=== PATIENT | male | born 1985 | race Two or more races ===

== ENCOUNTER 2022-11-08 15:44 | Emergency (ER) | payer MEDICAID, SELFPAY ==
--- NOTE | ~2022-11-08 | US_ITS ---
EXAMINATION: US ABDOMEN LIMITED CLINICAL INFORMATION: Hepatobiliary. COMPARISON: None available. TECHNIQUE: Real-time imaging of the right upper quadrant abdominal viscera. FINDINGS: PANCREAS: Largely obscured by bowel gas, limiting evaluation. LIVER: Liver is enlarged measuring 17.3 cm in span. The liver contour is normal. Parenchymal echogenicity is normal. No definite focal lesion is seen, but evaluation is limited due to poor sound beam penetration through the coarse echogenic liver parenchyma. There is no intrahepatic biliary duct dilatation seen. GALLBLADDER: Negative sonographic Fernandez sign. Cholelithiasis is present. Gallbladder is contracted with no significant distention to suggest cholecystitis. No pericholecystic fluid. COMMON BILE DUCT: Not identified sonographically. RIGHT KIDNEY: Normal. No hydronephrosis. No renal calculi or focal parenchymal lesions. The kidney measures 9.9 cm in maximum dimension. FREE FLUID: None. US/US abdomen limited IMPRESSION: Cholelithiasis without evidence of acute cholecystitis. Liver is mildly enlarged. Increased hepatic echogenicity which can be seen in the setting of hepatic steatosis or underlying liver disease. Pancreas was largely obscured by bowel gas limiting evaluation and the common bile duct was not identified sonographically.
[2022-11-08 15:56] VITALS: BP 138/96; PULSE 113; O2SAT 95
[2022-11-08 15:59] VITALS: BP 148/81; PULSE 118; RESP 16; TEMP 36.6; O2SAT 97; BMI 28.3
--- NOTE | 2022-11-08 16:23 | ED_ITS ---
HPI - Seizure General Chief Complaint: Seizure Stated Complaint: SZ FROM SNF PER EMS Time Seen by Provider: 11/08/22 16:11 Source: patient and RN notes reviewed Mode of arrival: EMS Limitations: no limitations History of Present Illness HPI Narrative: Patient with history of TBI, PTSD, generalized anxiety, pseudoseizures and seizure disorder on Depakote been having frequent seizures almost every 2 weeks today had a seizure at 14:20 lasted for about 2-3 minutes received Ativan 1 mg was incontinent and slightly bit his tongue no other significant injury Related Data Allergies Allergy/AdvReac Type Severity Reaction Status Date / Time No Known Allergies Allergy Verified 11/08/22 16:24 Review of Systems Review of Systems: Yes all other systems are reviewed and are negative [facility] Social History Social History Advance Directives: No Advance Directives Information Provided: No Physical Exam Vital Signs: Vital Signs: Last Vital Signs Temp 97.9 F 11/08/22 15:59 Pulse 118 H 11/08/22 15:59 Resp 16 11/08/22 15:59 BP 148/81 H 11/08/22 15:59 Pulse Ox 97 11/08/22 15:59 O2 Del Method Room Air 11/08/22 15:59 BMI result Body Mass Index 28.3 Appearance: Alert. Oriented X3. No acute distress. Eyes: PERRLA, No Nystagmus ENT: Pharynx normal. Oral Mucosa moist slightly abraded tongue Neck: Normal inspection. Neck supple. CVS: Normal heart rate and rhythm. Pulses normal. Respiratory: No respiratory distress. Equal air entry bilateral, no wheezing/ rales/rhonchi Abdomen: Soft and nontender. Bowel sounds are present, no mass palpable, no CVA tenderness Skin: Skin warm and dry. Normal skin color. Normal skin turgor. Extremities: No lower extremity edema. No calf tenderness Neuro: Oriented X 3. No motor deficit. No sensory deficit.No cerebellar signs , cranial nerves II-XII intact Medications Administered Discontinued Medications Generic Name Dose Route Start Last Admin Trade Name Freq PRN Reason Stop Dose Admin Lorazepam 2 mg 11/08/22 16:25 11/08/22 17:13 Lorazepam 1 Mg Tablet PO 11/08/22 16:26 2 mg ONCE ONE Administration Medical Decision Making Medical Decision Making MDM Narrative: Patient is stable labs normal Depakote level likely pseudoseizures with anxiety patient's symptoms improved after Ativan ambulatory in the ER had p.o. fluid to discharge patient back to [facility] patient ultrasound was also negative for any acute hepatobiliary lesion as requested by his PCP Lab Data [facility] Lab Attestation statement: I reviewed the patient's lab results. 11/08/22 19:45 11/08/22 19:45 Labs: Lab Results 11/08/22 11/08/22 11/08/22 Range/Units 19:45 19:45 19:45 WBC 6.4 (4.8-10.8) X10*3/uL RBC 4.89 (4.60-5.80) X10*6/uL Hgb 14.9 (14.0-18.0) g/dl Hct 44.6 (42.0-52.0) % MCV 91.2 (80.0-98.0) fL MCH 30.5 (27.0-33.0) pg MCHC 33.4 (31.0-36.0) g/dl RDW 12.3 (11.0-16.0) % Plt Count 170 (160-400) X10*3/uL MPV 9.2 L (9.4-12.4) fL Immature Gran % (Auto) 0.3 (0.0-0.4) % Neut % (Auto) 48.5 (45-73) % Lymph % (Auto) 43.5 H (20-40) % Schleicher % (Auto) 7.1 (2-11) % Eos % (Auto) 0.3 (0-4) % Baso % (Auto) 0.3 (0-2) % Lymph # (Auto) 2.8 (1.2-4.9) X10*3/uL Schleicher # (Auto) 0.5 (0.1-1.2) X10*3/uL Eos # (Auto) 0.0 (0.0-0.4) X10*3/uL Baso # (Auto) 0.0 (0.0-0.2) X10*3/uL Abs Immat Gran (auto) 0.02 (0.00-0.03) X10*3/uL Absolute Neuts (auto) 3.1 (2.0-8.3) x10*3/uL Absolute Nucleated RBC 0.000 (0.0-0.012) X10*3/uL Nucleated RBC % (auto) 0.0 (0.0-0.2) /100WBC Sodium 141 (135-145) mmol/L Potassium 4.1 (3.3-5.1) mmol/L Chloride 104 (96-108) mmol/L Carbon Dioxide 27 (22-29) mmol/L Anion Gap 14 (12-20) BUN 10 (9-16) mg/dL Creatinine 0.80 (0.5-1.4) mg/dL Estim Creat Clear Calc 132.1 Estimated GFR > 60 Random Glucose 87 (60-115) mg/dL Calcium 9.8 (8.4-10.2) mg/dL Magnesium 1.7 (1.6-2.6) mg/dL Total Bilirubin 0.4 (0.0-1.0) mg/dL AST 75 H (5-37) U/L ALT 131 H (0-40) U/L Alkaline Phosphatase 75 (39-117) U/L Total Protein 7.1 (6.5-8.0) g/dL Albumin 4.2 (3.5-5.0) g/dL Valproic Acid 72.8 (50.0-100.0) mcg/mL Discharge Plan Discharge Clinical Impression: Generalized seizure Patient Disposition: Home, Self-Care Instructions: Recurrent Seizures in Adults (ED) Additional Instructions: Continue your medications And follow-up with neurology Interventions: ED Discharge Assessment Last Done: 11/08/22 21:25 Discharge Date/Time: 11/08/22 21:26
[2022-11-08] MEDS: LORazepam 1 MG TABLET 2 MG PO (17:13)
[2022-11-08 19:50] LABS: MANUAL DIFF FLAG NO
[2022-11-08 19:52] LABS: Basophils Percent Auto 0.3 % (0-2); Eosinophils Percent Auto 0.3 % (0-4); Hematocrit 44.6 % (42.0-52.0); Hemoglobin 14.9 g/dl (14.0-18.0); Imm Gran Abs Auto 0.02 X10*3/uL (0.00-0.03); Imm Gran Pct Auto 0.3 % (0.0-0.4); Lymphocytes Absolute Auto 2.8 X10*3/uL (1.2-4.9); Lymphocytes Percent Auto 43.5 % (20-40); Mean Corpuscular HGB Conc 33.4 g/dl (31.0-36.0); Mean Corpuscular Hemoglobin 30.5 pg (27.0-33.0); Mean Corpuscular Volume 91.2 fL (80.0-98.0); Mean Platelet Volume 9.2 fL (9.4-12.4); Monocytes Absolute Auto 0.5 X10*3/uL (0.1-1.2); Monocytes Percent Auto 7.1 % (2-11); Neutrophils Absolute Auto 3.1 x10*3/uL (2.0-8.3); Neutrophils Percent Auto 48.5 % (45-73); Platelet Count 170 X10*3/uL (160-400); Red Blood Count 4.89 X10*6/uL (4.60-5.80); Red Cell Distribution Width 12.3 % (11.0-16.0); White Blood Count 6.4 X10*3/uL (4.8-10.8)
[2022-11-08 20:04] LABS: Alanine Aminotransferase 131 U/L (0-40); Albumin Level 4.2 g/dL (3.5-5.0); Alkaline Phosphatase 75 U/L (39-117); Anion Gap 14 (12-20); Aspartate Amino Transferase 75 U/L (5-37); Bilirubin Total 0.4 mg/dL (0.0-1.0); Blood Urea Nitrogen 10 mg/dL (9-16); Calcium 9.8 mg/dL (8.4-10.2); Carbon Dioxide 27 mmol/L (22-29); Chloride 104 mmol/L (96-108); Creatinine Clr Calc Pharmacy 132.1; Estimated Glomerular Filt Rate > 60; Glucose Random 87 mg/dL (60-115); Magnesium 1.7 mg/dL (1.6-2.6); Potassium 4.1 mmol/L (3.3-5.1); Sodium 141 mmol/L (135-145); Total Protein 7.1 g/dL (6.5-8.0)
[2022-11-08 20:05] LABS: Valproate 72.8 mcg/mL (50.0-100.0)
--- NOTE | 2022-11-08 21:07 | PC.NURSE ---
pt ambulatory with steady gait to and from bathroom. speaking clear full sentences, in no apparent distress. pt states he wants to go home. pt has had no seizure like activity since this RN assumed care at 1900. MD discharging pt, waiting for ambulance ride [facility].
== END 2022-11-08 21:26 | disposition home or self-care (01) ==
PROVIDERS: Emergency Provider Internal Medicine; PCP Hospitalist
DX: R56.9 Unspecified convulsions (principal); R10.13 Epigastric pain; F41.9 Anxiety disorder, unspecified; Z79.899 Other long term (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
CPT/HCPCS: 36415; 76705; 80053; 80164; 83735; 85025; 99282; 99284

== ENCOUNTER 2022-11-09 09:39 | Emergency (ER) | payer MEDICAID, SELFPAY ==
--- NOTE | 2022-11-09 09:45 | ED.SEIZURE ---
HPI - Seizure General Chief Complaint: Seizure Stated Complaint: seizures per ems Time Seen by Provider: 11/09/22 09:40 Source: EMS Mode of arrival: EMS Limitations: altered mental status History of Present Illness HPI Narrative: patient with a history of seizure and pseudoseizures with multiple episodes today complaint: seizure Related Data Allergies Allergy/AdvReac Type Severity Reaction Status Date / Time No Known Allergies Allergy Verified 11/08/22 16:24 Review of Systems Neurologic: Denies Sensory deficit (Neuro) [facility] Social History Social History Alcohol intake: never Smoked in Last 30 Days: No Use of substances other than those prescribed or required for medical reasons: No Advance Directives: Yes Advance Directives on File: No Physical Exam Vital Signs: Vital Signs: Last Vital Signs Temp 98.6 F 11/09/22 09:47 Pulse 98 11/09/22 13:49 Resp 13 11/09/22 13:49 BP 131/78 11/09/22 13:49 Pulse Ox 94 11/09/22 13:49 O2 Del Method Room Air 11/09/22 13:49 BMI result Body Mass Index 32.5 Const: Other: chronically ill, old TBI Nutritional Appearance: average body habitus Orientation/consciousness: oriented to person Limitations: altered mental status HEENT: Head: Yes normal to inspection Ears: external ears normal General nose exam: Normal external nose present Mouth: Normal oral and palatal mucosa present and oropharynx normal Throat: Yes posterior oropharynx normal Eyes: General: appearance normal, both eyes and all related structures Neck: Other: supple Neck: Yes normal visual inspection Chest: Chest palpation & inspection: normal inspection of the chest Resp: Auscultation: clear to auscultation bilaterally Cardio: Jugular venous distension: no JVD Rate: regular rate Rhythm: regular rhythm Heart sounds: S1 normal heart sound present and S2 normal heart sound present GI: Inspection: Yes normal to inspection Palpation (GI): Soft to palpation, nontender and No hepatosplenomegaly present Auscultation: normal bowel sounds : General: Yes no CVA tenderness Back/Spine/Pelvis: Back: no CVA tenderness Skin: General skin exam: no rashes or lesions noted Neuro: General: oriented to person Cranial nerves: Yes CN's II-XII intact bilaterally Motor exam (neuro): 5/5 motor strength present throughout Sensory Exam: No Sensory deficit (Neuro) Extrem: General: Yes normal to inspection Psych: Other: flat affect Course Reevaluation(s) Reevaluation #1: Discussed with Dr. Mcmillan the likelihood that this is pseudoseizure will dc back to [facility] Time: 13:59 Medications Administered Discontinued Medications Generic Name Dose Route Start Last Admin Trade Name Ilana PRN Reason Stop Dose Admin Lorazepam 2 mg 11/09/22 09:44 11/09/22 10:42 Lorazepam 2 Mg/Ml Vial IVPUSH 11/09/22 09:45 2 mg ONCE ONE Administration Medical Decision Making Differential Diagnosis Differential Diagnoses: The differential diagnosis associated with the presentation includes (seizures, pseudoseizures, electrolyte abnormalities, depakote toxicity or under treatment) Admission/Observation Consideration of admission/observation: Escalation of care including admission/observation considered (Patient sent in for 20 seizures so considered admitting for status epilepticus) Consult Healthcare Provider Management of the patient was discussed with: Primary Care Provider (discussed care with Dr. Mcmillan) Lab Data MDM Lab Attestation statement: I reviewed the patient's lab results. 11/09/22 10:30 11/09/22 11:37 Labs: Lab Results 11/09/22 11/09/22 11/09/22 Range/Units 10:30 10:37 11:37 WBC 5.6 (4.8-10.8) X10*3/uL RBC 5.11 (4.60-5.80) X10*6/uL Hgb 15.8 (14.0-18.0) g/dl Hct 48.0 (42.0-52.0) % MCV 93.9 (80.0-98.0) fL MCH 30.9 (27.0-33.0) pg MCHC 32.9 (31.0-36.0) g/dl RDW 12.7 (11.0-16.0) % Plt Count TNP MPV Not Reportable Immature Gran % (Auto) 1.2 H (0.0-0.4) % Neut % (Auto) 55.6 (45-73) % Lymph % (Auto) 34.9 (20-40) % Dewitt % (Auto) 7.3 (2-11) % Eos % (Auto) 0.5 (0-4) % Baso % (Auto) 0.5 (0-2) % Lymph # (Auto) 2.0 (1.2-4.9) X10*3/uL Dewitt # (Auto) 0.4 (0.1-1.2) X10*3/uL Eos # (Auto) 0.0 (0.0-0.4) X10*3/uL Baso # (Auto) 0.0 (0.0-0.2) X10*3/uL Abs Immat Gran (auto) 0.07 H (0.00-0.03) X10*3/uL Absolute Neuts (auto) 3.1 (2.0-8.3) x10*3/uL Absolute Nucleated RBC 0.000 (0.0-0.012) X10*3/uL Nucleated RBC % (auto) 0.0 (0.0-0.2) /100WBC Smear Tech's Comments VERIFIED Sodium 144 (135-145) mmol/L Potassium 4.1 (3.3-5.1) mmol/L Chloride 103 (96-108) mmol/L Carbon Dioxide 30 H (22-29) mmol/L Anion Gap 15 (12-20) BUN 12 (9-16) mg/dL Creatinine 0.84 (0.5-1.4) mg/dL Estim Creat Clear Calc 125.5 Estimated GFR > 60 Random Glucose 106 (60-115) mg/dL Calcium 10.0 (8.4-10.2) mg/dL Valproic Acid 66.9 (50.0-100.0) mcg/mL Tests considered The following testing was considered but not selected: considered getting a head CT but the episodes did not appear to be [employer] of origin Chronic Conditions Patient?s care impacted by: Other (tBI and psych issues) Procedures Procedure Narrative Procedure Narrative: IV placement under ultrasound guidance by me Discharge Plan Discharge Clinical Impression: Psychiatric pseudoseizure Patient Disposition: Home, Self-Care Instructions: Conversion Disorder (ED) Referrals: Antonio Mcmillan DO [Primary Care Provider] - 5 days
[2022-11-09 09:47] VITALS: BP 133/84; BP 136/101; PULSE 87; PULSE 96; RESP 15; TEMP 37; O2SAT 92; O2SAT 97; BMI 32.5
[2022-11-09 10:42] LABS: Basophils Percent Auto 0.5 % (0-2); Eosinophils Percent Auto 0.5 % (0-4); Mean Corpuscular HGB Conc 32.9 g/dl (31.0-36.0); PLT CLUMP 1; SCAN SMEAR FLAG 1
[2022-11-09] MEDS: LORazepam 2 MG/ML VIAL IVPUSH (10:42)
[2022-11-09 10:44] LABS: Hemoglobin 15.8 g/dl (14.0-18.0); Imm Gran Abs Auto 0.07 X10*3/uL (0.00-0.03); Imm Gran Pct Auto 1.2 % (0.0-0.4); Lymphocytes Percent Auto 34.9 % (20-40); MANUAL DIFF FLAG SCAN; Mean Corpuscular Hemoglobin 30.9 pg (27.0-33.0); Mean Corpuscular Volume 93.9 fL (80.0-98.0); Monocytes Absolute Auto 0.4 X10*3/uL (0.1-1.2); Monocytes Percent Auto 7.3 % (2-11); Neutrophils Absolute Auto 3.1 x10*3/uL (2.0-8.3); Neutrophils Percent Auto 55.6 % (45-73); Red Blood Count 5.11 X10*6/uL (4.60-5.80); Red Cell Distribution Width 12.7 % (11.0-16.0)
[2022-11-09 11:20] LABS: White Blood Count 5.6 X10*3/uL (4.8-10.8)
[2022-11-09 11:21] LABS: SLIDE REVIEW VERIFIED
[2022-11-09 11:21] LABS: Valproate 66.9 mcg/mL (50.0-100.0)
[2022-11-09 11:56] LABS: Anion Gap 15 (12-20)
[2022-11-09 11:59] LABS: Blood Urea Nitrogen 12 mg/dL (9-16); Carbon Dioxide 30 mmol/L (22-29); Chloride 103 mmol/L (96-108); Creatinine Clr Calc Pharmacy 125.5; Estimated Glomerular Filt Rate > 60; Glucose Random 106 mg/dL (60-115); Potassium 4.1 mmol/L (3.3-5.1); Sodium 144 mmol/L (135-145)
[2022-11-09 13:49] VITALS: BP 131/78; PULSE 98; RESP 13; O2SAT 94
[2022-11-09 15:40] VITALS: BP 121/69; PULSE 95; RESP 12; O2SAT 93
== END 2022-11-09 16:14 ==
PROVIDERS: Emergency Provider Emergency Medicine; PCP Hospitalist
DX: F44.5 Conversion disorder with seizures or convulsions (principal)
CPT/HCPCS: 36415; 80048; 80164; 85025; 96374; 99284; J2060

== ENCOUNTER 2023-04-15 08:49 | Inpatient (IN) | payer MEDICAID, SELFPAY ==
[2023-04-15] VITALS (13 sets, daily range): BP systolic 104–169; BP diastolic 47–110; PULSE 99–128; RESP 13–22; TEMP 36.7–37.3; O2SAT 86–97; BMI 32.1
--- NOTE | ~2023-04-15 | CT_ITS ---
EXAMINATION: CT ANGIOGRAM OF THE CHEST WITH AND WITHOUT CONTRAST (CT PULMONARY ANGIOGRAM FOR PE) CLINICAL INFORMATION: Reason for Exam dyspnea tachycardia hypoxia COMPARISON: None available. TECHNIQUE: Prior to contrast administration, noncontrast localization images were obtained. Subsequently, multidetector volumetric imaging was performed from the thoracic inlet to below the diaphragms following the administration of 80 mL Omnipaque 350 intravenous contrast. No contrast reaction reported Sagittal, coronal, and MIP oblique sagittal reformatted images were obtained on the CT workstation, uploaded to PACS, and reviewed. This CT examination was performed using dose optimization techniques as appropriate, variously including the following: *Automated exposure control *Adjustment of mA and/or kV according to patient size (this includes techniques or standardized protocols for targeted exams where dose is matched to indication/reason for exam; i.e. extremities or head) *Use of iterative reconstruction technique Total exam dose-length product 533 mGy-cm FINDINGS: GLIDING PILOT INSTRUCTOR: Right hemidiaphragmatic elevation, bilateral pulmonary opacities. Right humeral surgical hardware. QUALITY OF STUDY/CONTRAST BOLUS: Suboptimal. PULMONARY ARTERIES: Extremely limited study even of the main pulmonary arteries due to motion. Questionable linear artifact in the main pulmonary artery likely artifact. No definite large filling defects. Segmental and subsegmental pulmonary artery evaluation is nondiagnostic. THORACIC AORTA: No aneurysm. LUNG: Right lower lobe atelectasis/consolidation. Left patchy pulmonary opacities emanating from the left hilum. PLEURA: No pleural effusion or pneumothorax. MEDIASTINUM: Heart size within normal limits. No pericardial effusion. No ventricular bowing. No lymphadenopathy. No definite thyroid abnormality given study limitations. CORONARY ARTERY CALCIFICATION: Cannot reliably comment. CHEST WALL/AXILLA: No axillary or internal mammary lymphadenopathy. OSSEOUS STRUCTURES: No acute or suspicious osseous abnormality. UPPER ABDOMEN: Enlarged fatty liver. No reflux of contrast into the hepatic veins to suggest elevated right heart pressures. CT/CT angio chest PE protocol IMPRESSION: Extremely limited study. No large central pulmonary emboli. Right lower lobe atelectasis/consolidation. Patchy opacity left lung in batwing distribution, unclear as to the extent of pulmonary edema and/or pneumonia. Enlarged fatty liver with significant right hemidiaphragmatic elevation VTE: Nondiagnostic.
--- NOTE | ~2023-04-15 | XR_ITS ---
EXAMINATION: XR CHEST CLINICAL INFORMATION: Low O2 COMPARISON: 04/15/[address] TECHNIQUE: Frontal view of the chest was obtained. FINDINGS: Elevated right hemidiaphragm with consolidation. Mildly prominent perihilar regions. Heart and mediastinum within normal limits. No vascular congestion. No left effusion. Bony structures are intact. XR/XR chest 1V IMPRESSION: Redemonstration elevated right hemidiaphragm right base consolidation. Perihilar infiltrates versus central vascular prominence.
--- NOTE | 2023-04-15 09:20 | PC.NURSE ---
Patient arrived via ems from [facility]. Per staff patient had 6 seizures lasting 3-45 seconds each. Patient with hx of seizures and tbi. Right side arm at baseline with weakness. Per ems patient 80% on arrival to facility. On 4 liters 02 patient 92%. Denies SOB, headache or chest pain
--- NOTE | 2023-04-15 09:53 | ED_ITS ---
HPI - Seizure General Chief Complaint: Seizure Stated Complaint: SEIZURE ACTIVITY Time Seen by Provider: 04/15/23 09:03 Source: patient and EMS Mode of arrival: EMS Limitations: no limitations History of Present Illness HPI Narrative: A 37-year-old male history of TBI with deficits to his right side PTSD generalized anxiety psychogenic nonepileptic seizures and seizure disorder on Depakote presents emergency department after having a seizure at his correction. Patient is resident at [facility] patient had 6 seizures lasting 30 seconds. EMS brought the patient in patient did not get an IV was not giving any medications patient has been here for over an hour with no seizure act like activity. I was able to establish an IV the ultrasound-guided IV patient tolerated the procedure well Seizure History: Yes Related Data Allergies Allergy/AdvReac Type Severity Reaction Status Date / Time amoxicillin Allergy Anaphylaxis Verified 04/15/23 09:23 sertraline [From Zoloft] Allergy Anaphylaxis Verified 04/15/23 09:23 Review of Systems 2 Review of Systems: Review of systems: General: Patient denies any fever chills recent illness or falls Musculoskeletal: Denies back pain or body aches or other injuries HEENT: denies headache, runny nose, ear pain Respiratory: denies shortness of breath, cough Cardiovascular: no chest pain or palpitations : denies dysuria, frequency Abdomen: no nausea vomiting denies abdominal pain Extremities: no swelling, no pain Skin: no diaphoresis Yes all other systems are reviewed and are negative [facility] Social History Social History Alcohol intake: former Smoked in Last 30 Days: No Use of substances other than those prescribed or required for medical reasons: No Advance Directives: No Physical Exam 2 Vital Signs: Vital Signs: Last Vital Signs Pulse 115 H 04/15/23 10:25 Resp 18 04/15/23 10:25 BP 169/110 H 04/15/23 10:25 Pulse Ox 92 04/15/23 10:25 O2 Del Method Nasal Cannula 04/15/23 10:25 O2 Flow Rate 3 04/15/23 10:25 BMI result Body Mass Index 32.1 Neurological exam: CN II- XII tested. Patient is alert and oriented to person place and time. Patient has no dysphagia or dysarthia, denies good vision in all four vision arango no nystagmus on exam, good strength to upper and lower extremities with normal reflexes to brachioradialis, wrist, patella and achilles. Negative romberg, good finger to nose and heel to richard. General: Well-appearing well-nourished in no signs of distress HEENT: Normocephalic atraumatic Neck: No signs of JVD, no masses no tenderness or lymphadenopathy Cardiovascular: Regular rate and rhythm Respiratory: Clear to auscultation bilaterally Abdomen: Soft nontender no masses Extremities: Normal pedal pulses no signs of edema Skin: Dry warm no rashes Back: No tenderness full ROM Course Course Course Narrative: After getting Ativan and fluids patient's heart rate went from the 90s to 110s. Patient has remained in the 110s I will load the patient with Depakote. Do not think the patient is admitted I feel comfortable discharging the patient home. Medications Administered Generic Name Dose Route Start Last Admin Trade Name Freq PRN Reason Stop Dose Admin Sodium Chloride 1,000 mls @ 999 mls/hr 04/15/23 10:00 04/15/23 10:10 Ns IV 04/15/23 11:00 999 mls/hr .[id number] LG Administration Discontinued Medications Generic Name Dose Route Start Last Admin Trade Name Freq PRN Reason Stop Dose Admin Lorazepam 2 mg 04/15/23 09:53 04/15/23 10:08 Lorazepam 2 Mg/Ml Vial IVPUSH 04/15/23 09:54 2 mg ONCE ONE Administration Medical Decision Making Medical Decision Making [facility] Narrative: I will get the patient over for testing of his blood upper valproic acidlevel ammonia level with patient fluids and 2 mg of Ativan Differential Diagnosis Differential Diagnoses: The differential diagnosis associated with the presentation includes seizure pseudo-seizure medication noncompliance non therapeutic Depakote level hyperammonemia due to Depakote usage dehydration Admission/Observation Consideration of admission/observation: Escalation of care including admission/observation considered Lab Data [facility] Lab Attestation statement: I reviewed the patient's lab results. 04/15/23 10:06 04/15/23 10:06 Labs: Lab Results 04/15/23 04/15/23 Range/Units 10:06 10:14 WBC 10.5 (4.8-10.8) X10*3/uL RBC 5.45 (4.60-5.80) X10*6/uL Hgb 16.6 (14.0-18.0) g/dl Hct 49.9 (42.0-52.0) % MCV 91.6 (80.0-98.0) fL MCH 30.5 (27.0-33.0) pg MCHC 33.3 (31.0-36.0) g/dl RDW 13.3 (11.0-16.0) % Plt Count 160 (160-400) X10*3/uL MPV 9.6 (9.4-12.4) fL Immature Gran % (Auto) 0.4 (0.0-0.4) % Neut % (Auto) 72.7 (45-73) % Lymph % (Auto) 20.9 (20-40) % [place] % (Auto) 5.3 (2-11) % Eos % (Auto) 0.4 (0-4) % Baso % (Auto) 0.3 (0-2) % Lymph # (Auto) 2.2 (1.2-4.9) X10*3/uL [place] # (Auto) 0.6 (0.1-1.2) X10*3/uL Eos # (Auto) 0.0 (0.0-0.4) X10*3/uL Baso # (Auto) 0.0 (0.0-0.2) X10*3/uL Abs Immat Gran (auto) 0.04 H (0.00-0.03) X10*3/uL Absolute Neuts (auto) 7.6 (2.0-8.3) x10*3/uL Absolute Nucleated RBC 0.000 (0.0-0.012) X10*3/uL Nucleated RBC % (auto) 0.0 (0.0-0.2) /100WBC Sodium 143 (135-145) mmol/L Potassium 4.4 (3.3-5.1) mmol/L Chloride 101 (96-108) mmol/L Carbon Dioxide 31 H (22-29) mmol/L Anion Gap 15 (12-20) BUN 7 L (9-16) mg/dL Creatinine 0.81 (0.5-1.4) mg/dL Estim Creat Clear Calc 142.8 Estimated GFR > 60 Random Glucose 113 (60-115) mg/dL Calcium 10.0 (8.4-10.2) mg/dL Total Bilirubin 0.6 (0.0-1.0) mg/dL Direct Bilirubin 0.2 (0.0-0.5) mg/dL AST 40 H (5-37) U/L ALT 62 H (0-40) U/L Alkaline Phosphatase 80 (39-117) U/L Ammonia 29 (13-55) umol/L Total Protein 8.4 H (6.5-8.0) g/dL Albumin 4.5 (3.5-5.0) g/dL Lipase 33 (8-78) U/L Valproic Acid 64.7 (50.0-100.0) mcg/mL COVID-19 (BERT) Negative (Negative) COVID-19 Clin Com See Note External Record Review External record reviewed: Inpatient record Chronic Conditions traumatic brain injury PTSD generalized anxiety pseudoseizures and seizure on Depakote Discharge Plan Discharge Clinical Impression: Epileptic seizure Patient Disposition: Home, Self-Care Instructions: Recurrent Seizures in Adults (ED) Additional Instructions: He was seen today after having multiple seizures. You had labs in fluids as well as some Ativan given. Please take medication as prescribed if you have any other concerns please do not hesitate to come back to the emergency department.
[2023-04-15] MEDS: LORazepam 2 MG/ML VIAL IVPUSH ×2 (10:08→12:43)
[2023-04-15] MEDS: 0.9 % Sodium Chloride 1,000 ML 999 ML IV ×4 (10:10→16:14)
[2023-04-15 10:11] LABS: MANUAL DIFF FLAG NO
[2023-04-15 10:16] LABS: Basophils Percent Auto 0.3 % (0-2); Eosinophils Percent Auto 0.4 % (0-4); Hematocrit 49.9 % (42.0-52.0); Hemoglobin 16.6 g/dl (14.0-18.0); Imm Gran Abs Auto 0.04 X10*3/uL (0.00-0.03); Imm Gran Pct Auto 0.4 % (0.0-0.4); Lymphocytes Absolute Auto 2.2 X10*3/uL (1.2-4.9); Lymphocytes Percent Auto 20.9 % (20-40); Mean Corpuscular HGB Conc 33.3 g/dl (31.0-36.0); Mean Corpuscular Hemoglobin 30.5 pg (27.0-33.0); Mean Corpuscular Volume 91.6 fL (80.0-98.0); Mean Platelet Volume 9.6 fL (9.4-12.4); Monocytes Absolute Auto 0.6 X10*3/uL (0.1-1.2); Monocytes Percent Auto 5.3 % (2-11); Neutrophils Absolute Auto 7.6 x10*3/uL (2.0-8.3); Neutrophils Percent Auto 72.7 % (45-73); Platelet Count 160 X10*3/uL (160-400); Red Blood Count 5.45 X10*6/uL (4.60-5.80); Red Cell Distribution Width 13.3 % (11.0-16.0); White Blood Count 10.5 X10*3/uL (4.8-10.8)
[2023-04-15 10:26] LABS: Valproate 64.7 mcg/mL (50.0-100.0)
--- NOTE | 2023-04-15 10:29 | PC.NURSE ---
IV placed via ultrasound by MD, seizure pads in placed, sinus tacy on monitor, medicated per HAIDER
[2023-04-15 10:33] LABS: Alanine Aminotransferase 62 U/L (0-40); Albumin Level 4.5 g/dL (3.5-5.0); Alkaline Phosphatase 80 U/L (39-117); Anion Gap 15 (12-20); Aspartate Amino Transferase 40 U/L (5-37); Bilirubin Direct 0.2 mg/dL (0.0-0.5); Bilirubin Total 0.6 mg/dL (0.0-1.0); Blood Urea Nitrogen 7 mg/dL (9-16); Carbon Dioxide 31 mmol/L (22-29); Chloride 101 mmol/L (96-108); Creatinine Clr Calc Pharmacy 142.8; Estimated Glomerular Filt Rate > 60; Glucose Random 113 mg/dL (60-115); Lipase 33 U/L (8-78); Potassium 4.4 mmol/L (3.3-5.1); Sodium 143 mmol/L (135-145); Total Protein 8.4 g/dL (6.5-8.0)
[2023-04-15 10:34] LABS: COVID-19 Test Negative (Negative); IDNOW Serial# BCCEAD1C
[2023-04-15 10:42] LABS: Ammonia 29 umol/L (13-55)
[2023-04-15] MEDS: Divalproex Sodium 500 MG TABLET.DR 1000 MG PO (11:12)
--- NOTE | 2023-04-15 12:04 | PC.NURSE ---
Patient not on home 02, 91% on 4 liters 02. Provider notified
--- NOTE | 2023-04-15 12:40 | PC.NURSE ---
Patient was being repositioned in bed, stated he was going to have a seizure, patient with seizure like activity. Eyes rolled back in head, entire body twitching. Provider aware and came to bedside to assess patient
[2023-04-15 13:30] LABS: Glucose, Whole Blood 174 mg/dL (60-115)
[2023-04-15] MEDS: iohexoL 350 MG/ML 100 ML INFUS..BTL IV (13:38)
--- NOTE | 2023-04-15 13:47 | ECG_ITS ---
Test Reason : SEIZURE Blood Pressure : / mmHG Vent. Rate : 121 BPM Atrial Rate : 121 BPM P-R Int : 140 ms QRS Dur : 072 ms QT Int : 292 ms P-R-T Axes : 042 049 025 degrees QTc Int : 414 ms Sinus tachycardia Nonspecific T wave abnormality RSR' or QR pattern in V1 suggests right ventricular conduction delay Abnormal ECG No previous ECGs available Referred By: Rock Harper Electronically Signed By:JANETH VELASCO MD
--- NOTE | 2023-04-15 13:53 | PC.NURSE ---
Patient restless, slow to respond. Provider notified and came to bedside to assess. New orders obtained
[2023-04-15] MEDS: levalbuterol HCL 2.5 MG, Ipratropium Bromide 0.5 MG INHALE (14:14)
[2023-04-15 14:32] LABS: Troponin-I High Sensitivity < 2.7 ng/L (<3.5-35.0)
[2023-04-15 15:34] LABS: Troponin-I High Sensitivity < 2.7 ng/L (<3.5-35.0)
[2023-04-15] MEDS: dilTIAZem HCL 50 MG/10 ML VIAL 23.95 MG IVPUSH (16:14)
[2023-04-15] MEDS: cefEPime HCl 1 GM in 0.9 % Sodium Chloride 50 ML IV (16:22)
--- NOTE | 2023-04-15 16:27 | PM.IMHP ---
History of Present Illness Date of Service: 04/15/23 Attending physician on admission: [facility] Chief Complaint: Seizure Pt is a 37-year-old male with a PMH significant for TBI, pseudoseizures and seizure disorder on Depakote, PTSD, and general anxiety?who presents to the ED from SNF for evaluation of seizures. Pt with limited capacity, and HPI supplemented by chart, provider, and SNF staff review. Patient is a resident at [facility] and had 6 witnessed seizures earlier this morning with each lasting 3-45 seconds. Immediately after seizures be patient's O2 saturation was noted to be 71% at the facility, with EMS reporting O2 sat of 80% when they arrived. Patient is normally not on supplemental O2. Patient was brought to the emergency room for further evaluation. Labs were significant for mild transaminitis with AST 40 and ALT 62, lactic acid 3.6 otherwise grossly unremarkable. No leukocytosis. H&H stable. Electrolytes WNL. Ammonia WNL. Serial troponins negative. BNP negative. Valproic acid levels therapeutic at 64.7. However pt had persistent tachycardia. Was given IV Ativan, loaded with Depakote, and received 4L IVF. Patient became hypoxic again in the ED and placed on 4 L supplemental O2. Was given CTA to rule out pulmonary embolism which was limited in scope but did not demonstrate any large central pulmonary emboli. Did show right lower lobe atelectasis/consolidation with patchy opacity in left lung in a batwing distribution, suggestive of either pulmonary edema and/or pneumonia. Patient was then given diltiazem for tachycardia, and cefepime and vancomycin for pneumonia. He had one additional seizure episode just prior to CTA. ICU was consulted and Dr. Penny agreed pt was safe for the floor since he has not been hypotensive. EKG demonstrated sinus tachycardia of 121 with no evidence of significant ST elevations or depressions. Pt will be admitted to the hospital on telemetry for treatment and further evaluation of acute hypoxic respiratory failure in the setting of healthcare associated pneumonia. Review of Systems Review of Systems: Increased SOB Pt denies chest pain/pressure, palpitations No fever, chills, N/V, abdominal pain Denies lower leg swelling PMFSH Social History Household Members: None Housing: Senior Living Do you presently have visiting nurse or other home services: No Alcohol intake: former Patient Tobacco Use Status: Never used Tobacco Smoked in Last 30 Days: No e-Cigarette/Vaping Use: Never Used Use of substances other than those prescribed or required for medical reasons: No Currently Displaying Signs/Symptoms of Drug Intoxication Withdrawal: No Have you been hit, kicked, punched, or otherwise hurt by someone within the past year? If so, by whom?: No Do you feel safe in your current relationship?: No Current Relationship Is there a partner from a previous relationship who is making you feel unsafe now?: No Are you made to feel afraid or neglected: No Advance Directives: No Advance Directives Information Provided: No (Declined) Advance Directives on File: No Do you have thoughts of harming others: None Do you have a plan to hurt others: No Plan Meds Allergies Allergy/AdvReac Type Severity Reaction Status Date / Time amoxicillin Allergy Anaphylaxis Verified 04/15/23 09:23 sertraline [From Zoloft] Allergy Anaphylaxis Verified 04/15/23 09:23 Active Medications: Current Medications Vancomycin HCl (Vancomycin/Ns) 2,000 mg in 500 mls @ 250 mls/hr IV ONCE ONE Stop: 04/15/23 17:14 Home Medications Medication Instructions Recorded Confirmed Last Taken Type acetaminophen 325 mg tablet 650 mg PO Q6H PRN Fever Or Pain 04/15/23 04/15/23 Unknown History albuterol sulfate 90 mcg/actuation 2 puff inhalation Q6H PRN Wheezing 04/15/23 04/15/23 Unknown History aerosol inhaler apixaban 5 mg tablet (Eliquis) 5 mg PO BID 04/15/23 04/15/23 Unknown History beclomethasone dipropionate 40 1 inh inhalation BID 04/15/23 04/15/23 Unknown History mcg/actuation HFA breath activated aerosol citalopram 10 mg tablet 10 mg PO DAILY 04/15/23 04/15/23 Unknown History diphenhydramine HCl 25 mg tablet 25 mg PO BEDTIME PRN Sleep 04/15/23 04/15/23 Unknown History divalproex 500 mg tablet,delayed 500 mg PO BID 04/15/23 04/15/23 Unknown History release (Depakote) ibuprofen 600 mg tablet 600 mg PO Q8H PRN Pain 04/15/23 04/15/23 Unknown History melatonin 3 mg tablet 6 mg PO BEDTIME 04/15/23 04/15/23 Unknown History multivitamin 1 tab PO DAILY 04/15/23 04/15/23 Unknown History olanzapine 10 mg tablet 10 mg PO BEDTIME 04/15/23 04/15/23 Unknown History ondansetron HCl 4 mg tablet 4 mg PO Q8H PRN Nausea And Vomiting 04/15/23 04/15/23 Unknown History quetiapine 25 mg tablet 25 mg PO BID 04/15/23 04/15/23 Unknown History sennosides 8.6 mg tablet (senna) 8.6 mg PO DAILY PRN Constipation 04/15/23 04/15/23 Unknown History Physical Exam Vital Signs and Narrative: Vital Signs: Last Vital Signs Temp 98.1 F 04/15/23 13:27 Pulse 123 H 04/15/23 14:15 Resp 18 04/15/23 14:15 BP 150/103 H 04/15/23 13:54 Pulse Ox 92 04/15/23 13:54 O2 Del Method Nasal Cannula 04/15/23 13:54 O2 Flow Rate 4 04/15/23 13:54 BMI result Body Mass Index 32.1 Constitutional: Alert, in mild respiratroy distress. Mental Status: Oriented to person, place and time. Eyes: Pupils are equal, round, and reactive to light. Ear, Nose, and Throat: Oropharynx clear, mucous membranes moist. Ears and nose without deformities. Trachea midline. Respiratory: Diffuse expiratory wheezing. Increased work of respiration. Diaphoretic breathing. Cardiovascular: S1, S2, tachy. No murmurs, rubs, or gallops. Gastrointestinal: Abdomen soft, non-tender, non-distended. Normal bowel sounds. Neurologic: Cranial nerves II-XII are grossly intact bilaterally. Chronic upper-right extremity deficit. Intact sensation and strength to upper left and lower extremities bilaterally. Skin: No rashes or lesions noted. Musculoskeletal: No cyanosis or clubbing. Extremities: No edema. Psychiatric: Normal mood and affect. Results Labs 04/16/23 05:44 04/16/23 04:54 Labs: Laboratory Results - last 24 hr 04/15/23 04/15/23 04/15/23 10:06 10: 13:27 MCV 91.6 MCH 30.5 MCHC 33.3 RDW 13.3 Plt Count 160 MPV 9.6 Immature Gran % (Auto) 0.4 Neut % (Auto) 72.7 Lymph % (Auto) 20.9 [place] % (Auto) 5.3 Eos % (Auto) 0.4 Baso % (Auto) 0.3 Lymph # (Auto) 2.2 [place] # (Auto) 0.6 Eos # (Auto) 0.0 Baso # (Auto) 0.0 Abs Immat Gran (auto) 0.04 H Absolute Neuts (auto) 7.6 Absolute Nucleated RBC 0.000 Nucleated RBC % (auto) 0.0 Anion Gap 15 Estim Creat Clear Calc 142.8 Estimated GFR > 60 POC Glucose 174 H Random Glucose 113 Calcium 10.0 Total Bilirubin 0.6 Direct Bilirubin 0.2 AST 40 H ALT 62 H Alkaline Phosphatase 80 Ammonia 29 Total Protein 8.4 H Albumin 4.5 Lipase 33 Valproic Acid 64.7 COVID-19 (BERT) Negative COVID-19 Clin Com See Note Imaging Radiologist's Impressions: Impressions Chest CTA 04/15/23 13:37 IMPRESSION: Extremely limited study. No large central pulmonary emboli. Right lower lobe atelectasis/consolidation. Patchy opacity left lung in batwing distribution, unclear as to the extent of pulmonary edema and/or pneumonia. Enlarged fatty liver with significant right hemidiaphragmatic elevation VTE: Nondiagnostic. Assessment and Plan (1) Epileptic seizure: Status: Acute (2) Pneumonia: Status: Acute Plan Pt is a 37-year-old male with a PMH significant for TBI, pseudoseizures and seizure disorder on Depakote, PTSD, and general anxiety?who presents to the ED from SNF for evaluation of seizures. Pt was noted to be hypoxic in the ED and CTA concerning for pneumonia. Pt will be admitted to the hospital for treatment and further evaluation of acute hypoxic respiratory failure in the setting of healthcare associated pneumonia. Acute hypoxic respiratory failure in the setting of healthcare associated pneumonia Pt reportedly satting as low as 71% on RA at SNF, in ED 90% on 4L O2 CTA of chest with evidence suggestive of right lower lobe atelectasis/consolidation with patchy opacity in the left lung suggestive of pulmonary edema and/or pneumonia Patient with increased SOB, cough Patient meets sepsis criteria: Pneumonia, tachycardia, tachypnea, lactic acid 3.6 Patient given IVF and started on broad-spectrum antibiotics in ED Continue cefepime, vanco, started 04/15/2023 Titrate supplemental O2 >92, wean as tolerated Monitor respiratory status Seizure disorder Pt with breakthrough seizures at SNF and in ED Given Depakote 1000 mg p.o. in ED Will give Keppra 1000 mg IV Seizure precautions Mood disorder Continue home meds Full Code Attending:?Dr. Ely DVT Prophylaxis: On Eliquis Pt will require a hospitalization of at least two nights for treatment of?acute hypoxic respiratory failure in the setting of healthcare associated pneumonia. Patient will require IV antibiotics, supplemental oxygen, and close monitoring. Time Spent With Patient Time: Total time managing care of this patient today ____ minutes. Quality Stroke Does the patient have a stroke diagnosis?: No VTE Prior VTE?: No VTE Risk Level:: Medical - moderate - high VTE Device Contraindication: Treatment Not Indicated VTE Drug Contraindication: N/A - Med Ordered
[2023-04-15] MEDS: vancomycin/NS 2,000 MG/500 ML PLAST..BAG 250 MG IV (16:40)
[2023-04-15 16:43] LABS: Lactic Acid 3.6 mmol/L (0.5-2.0)
[2023-04-15 16:48] LABS: B Type Natriuretic Peptide < 10 pg/mL (<100)
--- NOTE | 2023-04-15 16:56 | PHA.MEDREC ---
Pharmacy Consult ? Medication Reconciliation Pharmacy has completed the medication reconciliation. List faxed from [facility]
--- NOTE | 2023-04-15 18:06 | PC.NURSE ---
Alert and oriented, switched from NC to oxymask at 10 liters with good effect. abt ifusing per order.
[2023-04-15 18:26] LABS: Reflex Lactate? Lactic Acid Added
--- NOTE | 2023-04-15 18:49 | PC.NURSE ---
Patient stating he felt like he was about to have a seizure , about 10 seconds later patient with 45 seconds of seizure activity. 93% on 10 liters oxy mask. Provider notified of tacycardia, seizure, and 02 sat
--- NOTE | 2023-04-15 19:19 | PHA.PROG ---
Admission Date/Time: April 15, 2023 17:51 Indication: Respiratory Weight in k.8 kg Adjusted body weight in Kg: [place] body weight in Kg: Obesity Dosing Indication % IBW: Serum Creatinine - Last 168 Hours 04/15/23 10:06 Creatinine 0.81 Estimated CrCl and GFR - Last 168 Hours 04/15/23 10:06 Estim Creat Clear Calc 142.8 Estimated GFR > 60 Vancomycin Loading Dose: 2000mg x 1 Current Vancomycin Dosing Regimen: 1250mg Q12H Vancomycin Monitoring using AUC goal of 400 - 600 range with trough as surrogate marker: 462 mg/L Date and Time for next Vancomycin Level to be drawn: 04/16/23 @1500 Pharmacist Comments on Vancomycin Plan: Level being drawn after 2 doses due to timing; predicted trough of 14 mg/L. Will adjust as necessary Vancomycin dosing will take advantage of [employer] as a clinical decision support tool that uses Bayesian modeling to calculate individual patient's pharmacokinetic parameters and forecast the patient's drug concentration time course with the target goal AUC 24 range of 400 - 600 mg/L/hr.
[2023-04-15 20:25] LABS: ~Lactic Acid-LAB USE ONLY 3.5 mmol/L (0.5-2.0)
--- NOTE | 2023-04-15 21:38 | PM.CCPN ---
Subjective Subjective Date of Service: 04/15/23 Critical Care Time (minutes): 45 Comment: Mr. Rain is a 37-year-old male who resides at [facility] with a PMH significant for TBI, pseudoseizures and seizure disorder on Depakote, PTSD, and general anxiety who was brought to the ED today for evaluation of seizures. The SNF reported 6 witnessed seizures with O2 sat of 71%. He is not normally on supplemental oxygen. CTA was concerning for pneumonia. He was admitted to the hospital for treatment and further evaluation of acute hypoxic respiratory failure in the setting of healthcare associated pneumonia. He was initially admitted to the medical floor but was transferred to the ICU for increased monitoring due to increased O2 requirement. Physical Exam Vital Signs: Vital Signs: Last Vital Signs Temp 99.2 F 04/15/23: Pulse 128 H 04/15/23: Resp 22 H 04/15/23: BP 139/74 04/15/23: Pulse Ox 90 L 04/15/23: O2 Del Method Nasal Cannula 04/15/23: O2 Flow Rate 10 04/15/23:23 BMI result Body Mass Index 32.1 Const: General: cooperative, no acute distress and alert Orientation/consciousness: oriented to person and oriented to place HEENT: Head: Yes normocephalic and Yes atraumatic General nose exam: Normal external nose present (Nares patent, septum midline, sinuses nontender bilaterally.) Mouth: Normal oral and palatal mucosa present (No thrush, tongue in midline, mucosa moist.) Throat: Yes other (No erythema, no exudate.) Neck: Neck: Yes supple (no thyromegaly, trachea midline.) Resp: Auscultation: diminished lung sounds (normal work of breathing, no accessory muscle use) bilateral Cardio: Jugular venous distension: no JVD Rate: tachycardic Rhythm: regular rhythm Heart sounds: no gallops, no murmurs and no rubs Peripheral pulses: Peripheral pulses 2+ throughout GI: Palpation (GI): Soft to palpation (nondistended.) and nontender Auscultation: normal bowel sounds Neuro: General: oriented to person and oriented to place Extrem: General: Yes full ROM, Yes capillary refill normal and Yes no clubbing, cyanosis or edema Psych: Affect: normal affect Attitude: cooperative Objective Data Labs 04/16/23 05:44 04/16/23 04:54 Labs: Laboratory Results - last 24 hr 04/15/23 04/15/23 04/15/23 10:06 10:14 13:27 WBC 10.5 RBC 5.45 Hgb 16.6 Hct 49.9 MCV 91.6 MCH 30.5 MCHC 33.3 RDW 13.3 Plt Count 160 MPV 9.6 Immature Gran % (Auto) 0.4 Neut % (Auto) 72.7 Lymph % (Auto) 20.9 [place] % (Auto) 5.3 Eos % (Auto) 0.4 Baso % (Auto) 0.3 Lymph # (Auto) 2.2 [place] # (Auto) 0.6 Eos # (Auto) 0.0 Baso # (Auto) 0.0 Abs Immat Gran (auto) 0.04 H Absolute Neuts (auto) 7.6 Absolute Nucleated RBC 0.000 Nucleated RBC % (auto) 0.0 Hold Purple Top Sodium 143 Potassium 4.4 Chloride 101 Carbon Dioxide 31 H Anion Gap 15 BUN 7 L Creatinine 0.81 Estim Creat Clear Calc 142.8 Estimated GFR > 60 POC Glucose 174 H Random Glucose 113 Lactic Acid Lactic Acid F/U @ 2Hr Calcium 10.0 Total Bilirubin 0.6 Direct Bilirubin 0.2 AST 40 H ALT 62 H Alkaline Phosphatase 80 Ammonia 29 Troponin I High Sens < 2.7 B-Natriuretic Peptide Total Protein 8.4 H Albumin 4.5 Lipase 33 Valproic Acid 64.7 COVID-19 (BERT) Negative COVID-19 Clin Com See Note 04/15/23 04/15/23 04/15/23 13:51 16:16 19:54 WBC RBC Hgb Hct MCV MCH MCHC RDW Plt Count MPV Immature Gran % (Auto) Neut % (Auto) Lymph % (Auto) [place] % (Auto) Eos % (Auto) Baso % (Auto) Lymph # (Auto) [place] # (Auto) Eos # (Auto) Baso # (Auto) Abs Immat Gran (auto) Absolute Neuts (auto) Absolute Nucleated RBC Nucleated RBC % (auto) Hold Purple Top SEE NOTE Sodium Potassium Chloride Carbon Dioxide Anion Gap BUN Creatinine Estim Creat Clear Calc Estimated GFR POC Glucose Random Glucose Lactic Acid 3.6 H* Lactic Acid F/U @ 2Hr 3.5 H* Calcium Total Bilirubin Direct Bilirubin AST ALT Alkaline Phosphatase Ammonia Troponin I High Sens < 2.7 B-Natriuretic Peptide < 10 Total Protein Albumin Lipase Valproic Acid COVID-19 (BERT) COVID-19 Clin Com Progress Note: A&P Assessment and plan (1) Pneumonia: Status: Acute (2) Epileptic seizure: Status: Acute Plan Assessment: 37-year-old male with a PMH significant for TBI, pseudoseizures and seizure disorder on Depakote, PTSD, and general anxiety who presented to the ED from SNF for evaluation of seizures, admitted for treatment and further evaluation of acute hypoxic respiratory failure in the setting of healthcare associated pneumonia. Plan: Neuro: Hx of TBI, pseudoseizures and seizure disorder.? Depakote 64.7. Keppra given in ED. Continue Depakote. Repeat dose of Keppra. Monitor for seizure activity. Minimize use of sedatives.? Cardiac: Sinus tachycardia with no evidence of significant ST elevations or depressions. . Was given diltiazem in ED. Serial troponins negative. BNP negative. Monitor on telemetry. Pulmonary: CTA concerning for PNA. Received Vanco and Cefepime in ED. Replace with Levaquin. Ween O2 as tolerated. CPAP @ HS.? Renal: ? No acute issues.? GI:? acute issues. ID: ? No acute issues. Heme/Onc: ? As above. Psych:? minimize? use of sedatives Miscellaneous:? No acute issues. Prophylaxis: ? Pneumatic compression boots, Apixaban? Case discussed with Dr. Penny. Quality Stroke Does the patient have a stroke diagnosis?: No VTE Prior VTE?: No VTE Risk Level:: Medical - moderate - high VTE Device Contraindication: Treatment Not Indicated VTE Drug Contraindication: N/A - Med Ordered
[2023-04-15] MEDS: levETIRAcetam in NaCl (iso-os) 1,000 MG/100 ML PIGGYBACK 400 MG IV (21:43)
[2023-04-15] MEDS: Apixaban 5 MG TABLET PO (21:49)
[2023-04-15] MEDS: Melatonin 3 MG TABLET 6 MG PO (21:49)
[2023-04-15 22:07] LABS: Reflex Lactate? 2 Y
[2023-04-15] MEDS: levoFLOXacin/D5W 750 MG/150 ML PIGGYBACK 100 MG IV (22:38)
[2023-04-15 23:00] LABS: ~Lactic Acid-LAB USE ONLY 2.6 mmol/L (0.5-2.0)
[2023-04-16] VITALS (18 sets, daily range): BP systolic 96–129; BP diastolic 34–90; PULSE 85–109; RESP 12–106; TEMP 36.3–37; O2SAT 92–104; BMI 32.2
[2023-04-16 04:59] LABS: VBG Base Excess 7.8 mmol/L; VBG HCO3 34 mmol/L (22-26); VBG pCO2 56 mmHg; VBG pH 7.39 (7.32-7.43); VBG pO2 58 mmHg
[2023-04-16 05:00] LABS: MANUAL DIFF FLAG NO
[2023-04-16 05:01] LABS: Basophils Percent Auto 0.1 % (0-2); Hematocrit 39.2 % (42.0-52.0); Hemoglobin 12.8 g/dl (14.0-18.0); Imm Gran Abs Auto 0.06 X10*3/uL (0.00-0.03); Imm Gran Pct Auto 0.6 % (0.0-0.4); Lymphocytes Absolute Auto 1.2 X10*3/uL (1.2-4.9); Lymphocytes Percent Auto 12.3 % (20-40); Mean Corpuscular HGB Conc 32.7 g/dl (31.0-36.0); Mean Corpuscular Hemoglobin 30.5 pg (27.0-33.0); Mean Corpuscular Volume 93.3 fL (80.0-98.0); Mean Platelet Volume 9.3 fL (9.4-12.4); Monocytes Absolute Auto 0.5 X10*3/uL (0.1-1.2); Monocytes Percent Auto 5.2 % (2-11); Neutrophils Absolute Auto 8.3 x10*3/uL (2.0-8.3); Neutrophils Percent Auto 81.8 % (45-73); Platelet Count 170 X10*3/uL (160-400); Red Cell Distribution Width 13.5 % (11.0-16.0); White Blood Count 10.1 X10*3/uL (4.8-10.8)
[2023-04-16 05:03] LABS: Venous Blood Gas Refer to POC result
[2023-04-16 05:17] LABS: Creatinine Clr Calc Pharmacy 165.3; Estimated Glomerular Filt Rate > 60
[2023-04-16 05:19] LABS: Albumin Level 3.6 g/dL (3.5-5.0); Anion Gap 15 (12-20); Blood Urea Nitrogen 8 mg/dL (9-16); Calcium 8.7 mg/dL (8.4-10.2); Carbon Dioxide 28 mmol/L (22-29); Chloride 107 mmol/L (96-108); Creatinine Clr Calc Pharmacy 170.1; Estimated Glomerular Filt Rate > 60; Glucose Random 130 mg/dL (60-115); Magnesium 1.9 mg/dL (1.6-2.6); Phosphorus 2.6 mg/dL (2.7-4.5); Potassium 4.6 mmol/L (3.3-5.1); Sodium 145 mmol/L (135-145)
[2023-04-16 05:50] LABS: MANUAL DIFF FLAG NO
[2023-04-16 05:51] LABS: Hematocrit 39.9 % (42.0-52.0); Hemoglobin 13.1 g/dl (14.0-18.0); Imm Gran Abs Auto 0.04 X10*3/uL (0.00-0.03); Imm Gran Pct Auto 0.4 % (0.0-0.4); Lymphocytes Absolute Auto 1.4 X10*3/uL (1.2-4.9); Lymphocytes Percent Auto 13.1 % (20-40); Mean Corpuscular HGB Conc 32.8 g/dl (31.0-36.0); Mean Corpuscular Hemoglobin 30.8 pg (27.0-33.0); Mean Corpuscular Volume 93.7 fL (80.0-98.0); Mean Platelet Volume 9.5 fL (9.4-12.4); Monocytes Absolute Auto 0.6 X10*3/uL (0.1-1.2); Monocytes Percent Auto 6.2 % (2-11); NRBC Pct Auto 0.2 /100WBC (0.0-0.2); Neutrophils Absolute Auto 8.4 x10*3/uL (2.0-8.3); Neutrophils Percent Auto 80.3 % (45-73); Platelet Count 161 X10*3/uL (160-400); Red Blood Count 4.26 X10*6/uL (4.60-5.80); Red Cell Distribution Width 13.6 % (11.0-16.0); White Blood Count 10.4 X10*3/uL (4.8-10.8)
[2023-04-16] MEDS: Multivitamin TABLET 1 TAB PO (09:16)
[2023-04-16] MEDS: 0.9 % Sodium Chloride Flush 3 ML SYRINGE IVFLUSH ×3 (09:16→19:58)
[2023-04-16] MEDS: Apixaban 5 MG TABLET PO ×2 (09:17→19:58)
[2023-04-16] MEDS: Divalproex Sodium 500 MG TABLET.DR PO ×2 (09:17→19:58)
--- NOTE | 2023-04-16 10:08 | PM.CCPN ---
Subjective Subjective Date of Service: 04/16/23 Interval History: 37-year-old gentleman with underlying history of seizures and pseudoseizures, TBI, anxiety, ? DVT on Eliquis admitted on 04/15/2023 for ?seizures versus pseudoseizures administered multiple doses of sedatives with pulmonary aspiration monitored in the intensive care overnight. Patient with improvement oxygenation and nowrecurrence of seizure-like events. Critical Care Time (minutes): 0 Physical Exam Vital Signs: Vital Signs: Last Vital Signs Temp 97.4 F 04/16/23 08:00 Pulse 105 H 04/16/23 10:00 Resp 13 04/16/23 10:00 BP 121/79 04/16/23 10:00 Pulse Ox 92 04/16/23 10:00 O2 Del Method Oxymask 04/16/23 10:00 O2 Flow Rate 6 04/16/23 10:00 FiO2 30 04/16/23 07:00 BMI result Body Mass Index 32.2 Const: General: no acute distress, alert and awake Nutritional Appearance: obese Eyes: Sclerae: sclerae normal EOM: EOMs intact bilaterally Neck: Neck: Yes no lymphadenopathy, Yes trachea midline and Yes supple Resp: Effort & Inspection: normal respiratory effort and no respiratory distress Auscultation: rales (Left-sided) Cardio: Rate: regular rate Rhythm: regular rhythm Heart sounds: no gallops, no murmurs and no rubs GI: Palpation (GI): Soft to palpation and Other GI palpation findings present ( Nontender) Auscultation: normal bowel sounds Extrem: General: Yes no pedal edema, No clubbing and No cyanosis Objective Data Labs 04/16/23 05:44 04/16/23 04:54 Labs: Laboratory Results - last 24 hr 04/15/23 04/15/23 04/15/23 10:06 10:14 13:27 WBC 10.5 RBC 5.45 Hgb 16.6 Hct 49.9 MCV 91.6 MCH 30.5 MCHC 33.3 RDW 13.3 Plt Count 160 MPV 9.6 Immature Gran % (Auto) 0.4 Neut % (Auto) 72.7 Lymph % (Auto) 20.9 [place] % (Auto) 5.3 Eos % (Auto) 0.4 Baso % (Auto) 0.3 Lymph # (Auto) 2.2 [place] # (Auto) 0.6 Eos # (Auto) 0.0 Baso # (Auto) 0.0 Abs Immat Gran (auto) 0.04 H Absolute Neuts (auto) 7.6 Absolute Nucleated RBC 0.000 Nucleated RBC % (auto) 0.0 Hold Purple Top VBG pH VBG pCO2 VBG pO2 VBG HCO3 VBG O2 Saturation VBG Base Excess Sodium 143 Potassium 4.4 Chloride 101 Carbon Dioxide 31 H Anion Gap 15 BUN 7 L Creatinine 0.81 Estim Creat Clear Calc 142.8 Estimated GFR > 60 POC Glucose 174 H Random Glucose 113 Lactic Acid Lactic Acid F/U @ 2Hr Lactic Acid F/U @ 4Hr Calcium 10.0 Phosphorus Magnesium Total Bilirubin 0.6 Direct Bilirubin 0.2 AST 40 H ALT 62 H Alkaline Phosphatase 80 Ammonia 29 Troponin I High Sens < 2.7 B-Natriuretic Peptide Total Protein 8.4 H Albumin 4.5 Lipase 33 Valproic Acid 64.7 COVID-19 (BERT) Negative COVID-[employer] See Note 04/15/23 04/15/23 04/15/23 13:51 16:16 19:54 WBC RBC Hgb Hct MCV MCH MCHC RDW Plt Count MPV Immature Gran % (Auto) Neut % (Auto) Lymph % (Auto) [place] % (Auto) Eos % (Auto) Baso % (Auto) Lymph # (Auto) [place] # (Auto) Eos # (Auto) Baso # (Auto) Abs Immat Gran (auto) Absolute Neuts (auto) Absolute Nucleated RBC Nucleated RBC % (auto) Hold Purple Top SEE NOTE VBG pH VBG pCO2 VBG pO2 VBG HCO3 VBG O2 Saturation VBG Base Excess Sodium Potassium Chloride Carbon Dioxide Anion Gap BUN Creatinine Estim Creat Clear Calc Estimated GFR POC Glucose Random Glucose Lactic Acid 3.6 H* Lactic Acid F/U @ 2Hr 3.5 H* Lactic Acid F/U @ 4Hr Calcium Phosphorus Magnesium Total Bilirubin Direct Bilirubin AST ALT Alkaline Phosphatase Ammonia Troponin I High Sens < 2.7 B-Natriuretic Peptide < 10 Total Protein Albumin Lipase Valproic Acid COVID-19 (BERT) COVID-[employer] 04/15/23 04/16/23 04/16/23 22:36 04:54 04:54 WBC 10.1 RBC 4.20 L D Hgb 12.8 L D Hct 39.2 L D MCV 93.3 MCH 30.5 MCHC 32.7 RDW 13.5 Plt Count 170 MPV 9.3 L Immature Gran % (Auto) 0.6 H Neut % (Auto) 81.8 H Lymph % (Auto) 12.3 L [place] % (Auto) 5.2 Eos % (Auto) 0.0 Baso % (Auto) 0.1 Lymph # (Auto) 1.2 [place] # (Auto) 0.5 Eos # (Auto) 0.0 Baso # (Auto) 0.0 Abs Immat Gran (auto) 0.06 H Absolute Neuts (auto) 8.3 Absolute Nucleated RBC 0.000 Nucleated RBC % (auto) 0.0 Hold Purple Top VBG pH 7.39 VBG pCO2 56 VBG pO2 58 VBG HCO3 34 H VBG O2 Saturation 91.0 VBG Base Excess 7.8 Sodium 145 Potassium 4.6 Chloride 107 Carbon Dioxide 28 Anion Gap 15 BUN 8 L Creatinine 0.70 0.68 Estim Creat Clear Calc 165.3 Estimated GFR POC Glucose Random Glucose Lactic Acid Lactic Acid F/U @ 2Hr Lactic Acid F/U @ 4Hr 2.6 H* Calcium Phosphorus Magnesium Total Bilirubin Direct Bilirubin AST ALT Alkaline Phosphatase Ammonia Troponin I High Sens B-Natriuretic Peptide Total Protein Albumin Lipase Valproic Acid COVID-19 (BERT) COVID-19 Clin Com 04/16/23 04/16/23 04/16/23 04:54 04:54 05:44 WBC 10.4 RBC 4.26 L Hgb 13.1 L Hct 39.9 L MCV 93.7 MCH 30.8 MCHC 32.8 RDW 13.6 Plt Count 161 MPV 9.5 Immature Gran % (Auto) 0.4 Neut % (Auto) 80.3 H Lymph % (Auto) 13.1 L [place] % (Auto) 6.2 Eos % (Auto) 0.0 Baso % (Auto) 0.0 Lymph # (Auto) 1.4 [place] # (Auto) 0.6 Eos # (Auto) 0.0 Baso # (Auto) 0.0 Abs Immat Gran (auto) 0.04 H Absolute Neuts (auto) 8.4 H Absolute Nucleated RBC 0.020 H Nucleated RBC % (auto) 0.2 Hold Purple Top VBG pH VBG pCO2 VBG pO2 VBG HCO3 VBG O2 Saturation VBG Base Excess Sodium Potassium Chloride Carbon Dioxide Anion Gap BUN Creatinine Estim Creat Clear Calc 170.1 Estimated GFR > 60 > 60 POC Glucose Random Glucose 130 H Lactic Acid Lactic Acid F/U @ 2Hr Lactic Acid F/U @ 4Hr Calcium 8.7 D Phosphorus 2.6 L Magnesium 1.9 Total Bilirubin Direct Bilirubin AST ALT Alkaline Phosphatase Ammonia Troponin I High Sens B-Natriuretic Peptide Total Protein Albumin 3.6 Lipase Valproic Acid COVID-19 (BERT) COVID-19 Clin Com Progress Note: A&P Assessment and plan (1) Pulmonary aspiration: Status: Acute (2) TBI (traumatic brain injury): Status: Acute (3) Pneumonia: Status: Acute (4) Epileptic seizure: Status: Acute (5) Psychiatric pseudoseizure: Status: Inactive Plan Assessment: 37-year-old gentleman with underlying seizures and pseudoseizures admitted with similar events status post multiple doses of benzodiazepines sedatives resulting in pulmonary aspiration with pneumonitis versus pneumonia, improving. Plan: Neuro: Started on Keppra, no recurrence. Underlying TBI. Cardiac: No acute issues. Pulmonary: Acute hypoxic respiratory failure secondary to pulmonary aspiration resulting pneumonitis versus pneumonia, improving. Continue to titrate off supplemental oxygen as tolerated. Minimize sedatives. Renal: No acute issues. Endo: No acute issues. GI: No acute issues. ID: Aspiration pneumonitis versus pneumonia. Empirically covered with Levaquin. Heme/Onc: No acute issues. Psych: No acute issues. Miscellaneous: No acute issues. Prophylaxis: Eliquis Diet: Regular Quality Stroke Does the patient have a stroke diagnosis?: No VTE Prior VTE?: No VTE Risk Level:: Medical - moderate - high VTE Device Contraindication: Treatment Not Indicated VTE Drug Contraindication: N/A - Med Ordered
[2023-04-16] MEDS: levETIRAcetam 1,000 MG TABLET 1000 MG PO ×2 (12:23→19:58)
[2023-04-16 12:57] LABS: Glucose, Whole Blood 112 mg/dL (60-115)
--- NOTE | 2023-04-16 13:09 | PC.NURSE ---
At 1248, pt was attempting to get out of bed. Telesitter called and RN entered the room. Soon after, pt exhibited behavior jairon to seizure: rigid body and unresponsiveness. Episode lasted 90 seconds. Norman Penny and Jhoana alerted. Pt was able to answer questions after end of episode. after approximately 5 minutes, pt exhibited similar symptoms, although with more [id number] movement in the bed. Second episode lasted [address] Ely at bedside. Dr penny ordered stat prolactin, Dr Ely ordered stat lactate. Pt is alert and oriented again, answering questions appropriately. Bed alarm on, call rboert in reach, bed low and locked, and telesitter camera remains in room. Will continue to monitor.
[2023-04-16 13:43] LABS: Lactic Acid 1.6 mmol/L (0.5-2.0)
[2023-04-16 15:39] LABS: Vancomycin Trough 2.3 mcg/mL (10.0-20.0)
[2023-04-16 18:19] LABS: Glucose, Whole Blood 142 mg/dL (60-115)
--- NOTE | 2023-04-16 18:24 | P.EN_ITS ---
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
--- NOTE | 2023-04-16 18:24 | PM.EVENT ---
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
--- NOTE | 2023-04-16 19:26 | PC.NURSE ---
pt has know with pseudo seizure per ICU transfer reports 1814 pt had 20s seizure activity in bed, didnot hit his head. rapid responds called. his eye reponded to light, he reponded to name and light touch. vital as follow: T 98.3 BP 124/71. HR 120. O2 93% on 4L oxymask. POC 147. MD Dr Riley and CHANDLER Saab in the room, laid eyes on pt. Per MD Dr Ely, no new med order, keep monitoring.
[2023-04-16] MEDS: Melatonin 3 MG TABLET 6 MG PO (19:58)
[2023-04-16] MEDS: LORazepam 2 MG/ML VIAL 1 MG IVPUSH (20:16)
[2023-04-17] VITALS (11 sets, daily range): BP systolic 104–147; BP diastolic 58–90; PULSE 78–97; RESP 16–20; TEMP 36.1–37; O2SAT 89–99; BMI 30.6
[2023-04-17] MEDS: Acetaminophen 325 MG TABLET 650 MG PO ×2 (08:53→16:13)
[2023-04-17] MEDS: Sennosides 8.6 MG TABLET PO (08:53)
[2023-04-17] MEDS: Ibuprofen 600 MG TABLET PO ×2 (08:53→16:13)
[2023-04-17] MEDS: levETIRAcetam 1,000 MG TABLET 1000 MG PO ×2 (08:53→21:41)
[2023-04-17] MEDS: QUEtiapine Fumarate 25 MG TABLET PO ×2 (08:53→21:41)
[2023-04-17] MEDS: Divalproex Sodium 500 MG TABLET.DR PO ×2 (08:53→21:41)
[2023-04-17] MEDS: Apixaban 5 MG TABLET PO ×2 (08:53→21:41)
[2023-04-17] MEDS: Multivitamin TABLET 1 TAB PO (08:53)
[2023-04-17] MEDS: 0.9 % Sodium Chloride Flush 3 ML SYRINGE IVFLUSH ×3 (08:54→21:41)
--- NOTE | 2023-04-17 09:35 | MHC.CM.PN ---
Attempted to contact Pt.'s contact in system; call sent directly to . Per MD documentation, Pt. a LTC resident of [facility]; reached out to Facility via [employer] requesting either guardianship or HCP to be faxed araceli to CM dept, and gave fx #, as there is no such document in [facility]'s electronic or paper charts. Pending document's arrival. CM to follow.
--- NOTE | 2023-04-17 11:01 | HO.PM.IMPN ---
Subjective Subjective Date of Service: 04/17/23 Interval History: f/u on seizure, aspiration pna several episodes of convulsions yesterday that appear to be pseudoseizures more alert, calm today, no respiratory issues Physical Exam Vital Signs: Vital Signs: Last Vital Signs Temp 97.7 F 04/17/23 07:47 Pulse 93 04/17/23 07:47 Resp 20 04/17/23 07:47 BP 134/90 H 04/17/23 07:47 Pulse Ox 99 04/17/23 07:47 O2 Del Method Oxymask 04/17/23 07:47 O2 Flow Rate 5 04/17/23 07:47 FiO2 30 04/16/23 07:00 BMI result Body Mass Index 30.6 Const: Other: General: AO X 2, no acute distress Resp: CTA bilateral CVS: S1,S2,RRR GI: +BS, NT, no distention Skin: No rash Neuro: weakness on right side, appear chronic Psych: appropriate affect Objective Data Active Medications Acetaminophen (Acetaminophen 325 Mg Tablet) 650 mg PO Q6H PRN PRN Reason: Pain, Mild (Pain Scale 1-3) Last Admin: 04/17/23 08:53 Dose: 650 mg Documented By: KEY Albuterol Sulfate (Albuterol Sulfate 90 Mcg 8 Gm Inhaler) 2 puff INHALE Q6H PRN PRN Reason: Wheezing Apixaban (Apixaban 5 Mg Tablet) 5 mg PO BID [facility] Last Admin: 04/17/23 08:53 Dose: 5 mg Documented By: KEY Divalproex Sodium (Divalproex Sodium 500 Mg Tablet.) 500 mg PO BID [facility] Last Admin: 04/17/23 08:53 Dose: 500 mg Documented By: KEY Docusate Sodium (Docusate Sodium 100 Mg Capsule) 100 mg PO DAILY PRN PRN Reason: Constipation Fluticasone Propionate (Fluticasone Propionate 100 Mcg Blst.W.Dev) 1 puff INHALE RBID [facility] Last Admin: 04/16/23 23:09 Dose: Not Given Documented By: PAOLA Non-Admin Reason: See Note Ibuprofen (Ibuprofen 600 Mg Tablet) 600 mg PO Q8H PRN PRN Reason: Pain, Mild (Pain Scale 1-3) Last Admin: 04/17/23 08:53 Dose: 600 mg Documented By: KEY Levalbuterol HCl (Levalbuterol Hcl 1.25 Mg/3 Ml Vial.Neb) 1.25 mg INHALE Q4H PRN PRN Reason: Shortness of Breath/Wheezing Levetiracetam (Levetiracetam 1,000 Mg Tablet) 1,000 mg PO BID [facility] Last Admin: 04/17/23 08:53 Dose: 1,000 mg Documented By: KEY Melatonin (Melatonin 3 Mg Tablet) 6 mg PO BEDTIME [facility] Last Admin: 04/16/23 19:58 Dose: 6 mg Documented By: KEYSHA Multivitamins/Vitamin C (Multivitamin Tablet) 1 tab PO DAILY [facility] Last Admin: 04/17/23 08:53 Dose: 1 tab Documented By: KEY Olanzapine (Olanzapine 10 Mg Tablet) 10 mg PO BEDTIME [facility] Ondansetron HCl (Ondansetron Hcl 4 Mg/2 Ml Vial) 4 mg IVPUSH Q8H PRN PRN Reason: Nausea and Vomiting Quetiapine Fumarate (Quetiapine Fumarate 25 Mg Tablet) 25 mg PO BID [facility] Last Admin: 04/17/23 08:53 Dose: 25 mg Documented By: KEY Senna (Sennosides 8.6 Mg Tablet) 8.6 mg PO DAILY PRN PRN Reason: Constipation Last Admin: 04/17/23 08:53 Dose: 8.6 mg Documented By: KEY Sodium Chloride (0.9 % Sodium Chloride Flush 3 Ml Syringe) 3 ml IVFLUSH QSHIFT [facility] Last Admin: 04/17/23 08:54 Dose: 3 ml Documented By: KEY Labs 04/16/23 05:44 04/16/23 04:54 Labs: Laboratory Results - last 24 hr 04/16/23 04/16/23 04/16/23 12:53 13:28 15:07 POC Glucose 112 Lactic Acid 1.6 Vancomycin Trough 2.3 L 04/16/23 18:16 POC Glucose 142 H Lactic Acid Vancomycin Trough Microbiology Microbiology Results: Microbiology 04/15/23 16:18 Blood Culture - Preliminary Blood - Venous No growth after 24 hours. 04/15/23 16:17 Blood Culture - Preliminary Blood - Venous No growth after 24 hours. Assessment and Plan (1) TBI (traumatic brain injury): Status: Acute (2) Pneumonia: Status: Acute (3) Pulmonary aspiration: Status: Acute (4) Epileptic seizure: Status: Acute Plan Pt is a 37-year-old male with a PMH significant for TBI, pseudoseizures and seizure disorder on Depakote, PTSD, and general anxiety?who presents to the ED from SNF for evaluation of seizures. Pt was noted to be hypoxic in the ED and CTA concerning for pneumonia. Pt will be admitted to the hospital for treatment and further evaluation of acute hypoxic respiratory failure in the setting of healthcare associated pneumonia. Acute hypoxic respiratory failure, d/t aspiration pna following seizures, and sedation -wean off 2, continue levaquin 750 x 5 days, Seizure disorder+Pseudoseizures, monitored in icu overnight, continue depakote, check level, Keppra added, if continue to have seizures, get neurology to see him aspiration precautions Mood disorder--resume seroquel and Olazapine Full Code DVT Prophylaxis: On Eliquis need for inpatient; PNA w/ hypoxia need high O2, IV and management of intractable seizure with meds adjustment Time Spent With Patient Time: Total time managing care of this patient today ____ minutes. Quality Stroke Does the patient have a stroke diagnosis?: No VTE Prior VTE?: No VTE Risk Level:: Medical - moderate - high VTE Device Contraindication: Treatment Not Indicated VTE Drug Contraindication: N/A - Med Ordered
[2023-04-17] MEDS: Fluticasone Propionate 100 MCG BLST.W.DEV 1 PUFF INHALE (11:51)
[2023-04-17 15:23] LABS: MANUAL DIFF FLAG NO
[2023-04-17 15:27] LABS: Basophils Percent Auto 0.3 % (0-2); Eosinophils Percent Auto 0.5 % (0-4); Hematocrit 44.6 % (42.0-52.0); Hemoglobin 14.4 g/dl (14.0-18.0); Imm Gran Abs Auto 0.13 X10*3/uL (0.00-0.03); Imm Gran Pct Auto 1.5 % (0.0-0.4); Lymphocytes Absolute Auto 3.4 X10*3/uL (1.2-4.9); Lymphocytes Percent Auto 38.1 % (20-40); Mean Corpuscular HGB Conc 32.3 g/dl (31.0-36.0); Mean Corpuscular Hemoglobin 30.9 pg (27.0-33.0); Mean Corpuscular Volume 95.7 fL (80.0-98.0); Mean Platelet Volume 9.6 fL (9.4-12.4); Monocytes Absolute Auto 0.7 X10*3/uL (0.1-1.2); Monocytes Percent Auto 7.5 % (2-11); Neutrophils Absolute Auto 4.6 x10*3/uL (2.0-8.3); Neutrophils Percent Auto 52.1 % (45-73); Platelet Count 183 X10*3/uL (160-400); Red Blood Count 4.66 X10*6/uL (4.60-5.80); Red Cell Distribution Width 13.6 % (11.0-16.0); White Blood Count 8.8 X10*3/uL (4.8-10.8)
[2023-04-17 15:41] LABS: Anion Gap 19 (12-20); Blood Urea Nitrogen 14 mg/dL (9-16); Calcium 9.4 mg/dL (8.4-10.2); Carbon Dioxide 26 mmol/L (22-29); Chloride 105 mmol/L (96-108); Creatinine Clr Calc Pharmacy 136.2; Estimated Glomerular Filt Rate > 60; Glucose Random 119 mg/dL (60-115); Phosphorus 4.4 mg/dL (2.7-4.5); Potassium 4.5 mmol/L (3.3-5.1); Sodium 145 mmol/L (135-145)
[2023-04-17] MEDS: Melatonin 3 MG TABLET 6 MG PO (21:41)
[2023-04-17] MEDS: OLANZapine 10 MG TABLET PO (21:41)
[2023-04-18] VITALS (10 sets, daily range): BP systolic 104–149; BP diastolic 55–81; PULSE 71–97; RESP 16–20; TEMP 36.3–37.2; O2SAT 90–96; BMI 30.6
[2023-04-18] MEDS: Fluticasone Propionate 100 MCG BLST.W.DEV 1 PUFF INHALE ×2 (07:45→19:43)
[2023-04-18 08:38] LABS: Creatinine Clr Calc Pharmacy 150.8; Estimated Glomerular Filt Rate > 60
[2023-04-18] MEDS: 0.9 % Sodium Chloride Flush 3 ML SYRINGE IVFLUSH ×2 (09:03→21:22)
[2023-04-18] MEDS: levETIRAcetam 1,000 MG TABLET 1000 MG PO ×2 (09:03→21:21)
[2023-04-18] MEDS: Multivitamin TABLET 1 TAB PO (09:04)
[2023-04-18] MEDS: Apixaban 5 MG TABLET PO ×2 (09:04→21:21)
[2023-04-18] MEDS: QUEtiapine Fumarate 25 MG TABLET PO ×2 (09:04→21:21)
[2023-04-18] MEDS: Divalproex Sodium 500 MG TABLET.DR PO ×2 (09:04→21:22)
[2023-04-18 09:33] LABS: Prolactin 9.5 ng/mL (2.0-18.0)
--- NOTE | 2023-04-18 15:26 | MHC.CM.PN ---
EMR reviewed. Per MD patient not medically cleared for DC at this time due to O2 requirements. [facility] updated via [employer]. Received guardian document from [employer] and [employer] for guardian/Uncle Danny Mayorga [phone]. CM will continue to follow.
--- NOTE | 2023-04-18 15:47 | HO.PM.IMPN ---
Subjective Subjective Date of Service: 04/18/23 Interval History: f/u on seizure, aspiration pna, no siezures overnight Physical Exam Vital Signs: Vital Signs: Last Vital Signs Temp 98.9 F 04/18/23 15:07 Pulse 83 04/18/23 15:07 Resp 16 04/18/23 15:07 BP 149/81 H 04/18/23 15:07 Pulse Ox 94 04/18/23 15:07 O2 Del Method Room Air 04/18/23 15:07 O2 Flow Rate 2 04/18/23 11:03 FiO2 30 04/16/23 07:00 BMI result Body Mass Index 30.6 Const: Other: General: AO X 2, no acute distress Resp: CTA bilateral CVS: S1,S2,RRR GI: +BS, NT, no distention Skin: No rash Neuro: weakness on right side, appear chronic Psych: appropriate affect Objective Data Active Medications Acetaminophen (Acetaminophen 325 Mg Tablet) 650 mg PO Q6H PRN PRN Reason: Pain, Mild (Pain Scale 1-3) Last Admin: 04/17/23 16:13 Dose: 650 mg Documented By: KEY Albuterol Sulfate (Albuterol Sulfate 90 Mcg 8 Gm Inhaler) 2 puff INHALE Q6H PRN PRN Reason: Wheezing Apixaban (Apixaban 5 Mg Tablet) 5 mg PO BID [facility] Last Admin: 04/18/23 09:04 Dose: 5 mg Documented By: JUSTIN Divalproex Sodium (Divalproex Sodium 500 Mg Tablet.Dr) 500 mg PO BID [facility] Last Admin: 04/18/23 09:04 Dose: 500 mg Documented By: JUSTIN Docusate Sodium (Docusate Sodium 100 Mg Capsule) 100 mg PO DAILY PRN PRN Reason: Constipation Fluticasone Propionate (Fluticasone Propionate 100 Mcg Blst.W.Dev) 1 puff INHALE RBID [facility] Last Admin: 04/18/23 07:45 Dose: 1 puff Documented By: JOSE Ibuprofen (Ibuprofen 600 Mg Tablet) 600 mg PO Q8H PRN PRN Reason: Pain, Mild (Pain Scale 1-3) Last Admin: 04/17/23 16:13 Dose: 600 mg Documented By: KEY Levalbuterol HCl (Levalbuterol Hcl 1.25 Mg/3 Ml Vial.Neb) 1.25 mg INHALE Q4H PRN PRN Reason: Shortness of Breath/Wheezing Levetiracetam (Levetiracetam 1,000 Mg Tablet) 1,000 mg PO BID [facility] Last Admin: 04/18/23 09:03 Dose: 1,000 mg Documented By: JUSTIN Melatonin (Melatonin 3 Mg Tablet) 6 mg PO BEDTIME [facility] Last Admin: 04/17/23 21:41 Dose: 6 mg Documented By: MARTIN Multivitamins/Vitamin C (Multivitamin Tablet) 1 tab PO DAILY [facility] Last Admin: 04/18/23 09:04 Dose: 1 tab Documented By: JUSTIN Olanzapine (Olanzapine 10 Mg Tablet) 10 mg PO BEDTIME [facility] Last Admin: 04/17/23 21:41 Dose: 10 mg Documented By: MARTIN Ondansetron HCl (Ondansetron Hcl 4 Mg/2 Ml Vial) 4 mg IVPUSH Q8H PRN PRN Reason: Nausea and Vomiting Quetiapine Fumarate (Quetiapine Fumarate 25 Mg Tablet) 25 mg PO BID [facility] Last Admin: 04/18/23 09:04 Dose: 25 mg Documented By: JUSTIN Senna (Sennosides 8.6 Mg Tablet) 8.6 mg PO DAILY PRN PRN Reason: Constipation Last Admin: 04/17/23 08:53 Dose: 8.6 mg Documented By: THAI-RIVFRANCESCA Sodium Chloride (0.9 % Sodium Chloride Flush 3 Ml Syringe) 3 ml IVFLUSH QSHIFT [facility] Last Admin: 04/18/23 14:11 Dose: Not Given Documented By: MITCH Non-Admin Reason: Previously Administered Labs 04/17/23 15:13 04/18/23 07:54 Labs: Laboratory Results - last 24 hr 04/16/23 04/17/23 04/18/23 13:28 15:30 07:54 Hold Purple Top Estim Creat Clear Calc 150.8 Estimated GFR > 60 Prolactin 9.5 Valproic Acid 65.0 04/18/23 08:19 Hold Purple Top SEE NOTE Estim Creat Clear Calc Estimated GFR Prolactin Valproic Acid Microbiology Microbiology Results: Microbiology 04/15/23 16:17 Blood Culture - Preliminary Blood - Venous No growth after 48 hours. 04/15/23 16:18 Blood Culture - Preliminary Blood - Venous No growth after 48 hours. Assessment and Plan (1) TBI (traumatic brain injury): Status: Acute (2) Pneumonia: Status: Acute (3) Pulmonary aspiration: Status: Acute (4) Epileptic seizure: Status: Acute Plan Pt is a 37-year-old male with a PMH significant for TBI, pseudoseizures and seizure disorder on Depakote, PTSD, and general anxiety?who presents to the ED from SNF for evaluation of seizures. Pt was noted to be hypoxic in the ED and CTA concerning for pneumonia. Pt will be admitted to the hospital for treatment and further evaluation of acute hypoxic respiratory failure in the setting of healthcare associated pneumonia. Acute hypoxic respiratory failure, d/t aspiration pna following seizures, and sedation, still fairly hypoxic without O2 -wean off 2, continue levaquin 750 x 5 days, Seizure disorder+Pseudoseizures, monitored in icu x 1 night on admission continue depakote, check level, Keppra added, if continue to have seizures, get neurology to see him aspiration precautions Mood disorder--resume seroquel and Olazapine Full Code DVT Prophylaxis: On Eliquis need for inpatient; PNA w/ hypoxia need high O2, IV and management of intractable seizure with meds adjustment dc in am if o2 is better Time Spent With Patient Time: Total time managing care of this patient today ____ minutes. Quality Stroke Does the patient have a stroke diagnosis?: No VTE Prior VTE?: No VTE Risk Level:: Medical - moderate - high VTE Device Contraindication: Treatment Not Indicated VTE Drug Contraindication: N/A - Med Ordered
[2023-04-18] MEDS: Melatonin 3 MG TABLET 6 MG PO (21:21)
[2023-04-18] MEDS: OLANZapine 10 MG TABLET PO (21:22)
[2023-04-19] VITALS (11 sets, daily range): BP systolic 95–141; BP diastolic 56–98; PULSE 68–100; RESP 18–20; TEMP 36.1–36.9; O2SAT 91–95; BMI 29.8
[2023-04-19 07:45] LABS: Creatinine Clr Calc Pharmacy 145.1; Estimated Glomerular Filt Rate > 60
[2023-04-19] MEDS: Fluticasone Propionate 100 MCG BLST.W.DEV 1 PUFF INHALE ×2 (08:19→18:51)
[2023-04-19] MEDS: 0.9 % Sodium Chloride Flush 3 ML SYRINGE IVFLUSH ×2 (10:36→16:21)
[2023-04-19] MEDS: Multivitamin TABLET 1 TAB PO (10:36)
[2023-04-19] MEDS: QUEtiapine Fumarate 25 MG TABLET PO ×2 (10:36→20:33)
[2023-04-19] MEDS: levETIRAcetam 1,000 MG TABLET 1000 MG PO ×2 (10:36→20:33)
[2023-04-19] MEDS: Apixaban 5 MG TABLET PO ×2 (10:36→20:33)
[2023-04-19] MEDS: Divalproex Sodium 500 MG TABLET.DR PO ×2 (10:36→20:33)
--- NOTE | 2023-04-19 13:12 | PM.DS ---
DS: Providers Provider Date of Service: 04/21/23 Date of admission: 04/15/23 17:51 Primary care physician: Antonio Mcmillan DO DS: Diagnosis Discharge Diagnosis (1) TBI (traumatic brain injury): Status: Acute (2) Pneumonia: Status: Acute (3) Pulmonary aspiration: Status: Acute (4) Epileptic seizure: Status: Acute DS: Summary Hospital Course Hospital Course: Chief Complaint: Seizure Pt is a 37-year-old male with a PMH significant for TBI, pseudoseizures and seizure disorder on Depakote, PTSD, and general anxiety?who presents to the ED from SNF for evaluation of seizures. Pt with limited capacity, and HPI supplemented by chart, provider, and SNF staff review. Patient is a resident at [facility] and had 6 witnessed seizures earlier this morning with each lasting 3-45 seconds. Immediately after seizures be patient's O2 saturation was noted to be 71% at the facility, with EMS reporting O2 sat of 80% when they arrived. Patient is normally not on supplemental O2. Patient was brought to the emergency room for further evaluation. Labs were significant for mild transaminitis with AST 40 and ALT 62, lactic acid 3.6 otherwise grossly unremarkable. No leukocytosis. H&H stable. Electrolytes WNL. Ammonia WNL. Serial troponins negative. BNP negative. Valproic acid levels therapeutic at 64.7. However pt had persistent tachycardia. Was given IV Ativan, loaded with Depakote, and received 4L IVF. Patient became hypoxic again in the ED and placed on 4 L supplemental O2. Was given CTA to rule out pulmonary embolism which was limited in scope but did not demonstrate any large central pulmonary emboli. Did show right lower lobe atelectasis/consolidation with patchy opacity in left lung in a batwing distribution, suggestive of either pulmonary edema and/or pneumonia. Patient was then given diltiazem for tachycardia, and cefepime and vancomycin for pneumonia. He had one additional seizure episode just prior to CTA. ICU was consulted and Dr. Penny agreed pt was safe for the floor since he has not been hypotensive. EKG demonstrated sinus tachycardia of 121 with no evidence of significant ST elevations or depressions. Pt will be admitted to the hospital on telemetry for treatment and further evaluation of acute hypoxic respiratory failure in the setting of healthcare associated pneumonia. Hospital course: The patient initially presented with reported seizures and exhibited signs of hypoxic respiratory distress, raising concerns about potential aspiration pneumonia. In the emergency department, the patient experienced multiple seizures, necessitating a transfer to the Intensive Care Unit (ICU) for closer monitoring. While in the ICU, the patient received Keppra for seizure and Levaquin to address the suspected aspiration pneumonia. During his time in the ICU, the patient continued to have recurrent episodes resembling seizures, but further evaluation revealed that these episodes were consistent with pseudoseizures. Notably, he did not exhibit post-ictal symptoms, and, in some instances, he specifically requested intravenous Ativan, stating, I am having a seizure; please administer IV Ativan. Over the past 24 hours, the patient has not experienced any additional seizure-like episodes. His treatment plan includes completing a five-day course of Levaquin at a daily dosage of 750 mg and a five-day course of prednisone, which is intended to address a suspected airway condition that may have contributed to intermittent drops in oxygen levels. The patient will continue using oxygen as needed. Additionally, he will maintain his Depakote regimen for seizure management and continue taking Keppra at a dose of 1000 mg twice daily, which was initiated during his stay in the ICU. After discharge, the patient is advised to follow up with his neurologist on an outpatient basis. Time Spent with Patient Time attestation: Total time managing care of this patient today ____ minutes. Discharge coordination time: Greater than 30 minutes Quality: Safe Use of Opioids Does Pt have an Active Cancer Diagnosis on the Problem List?: No Quality: Stroke Does the patient have a stroke diagnosis?: No Physical Exam Vital Signs: Selected Entries 04/21/23 08:00 04/21/23 08:06 Temperature 96.9 F Pulse Rate 75 Respiratory Rate 20 Blood Pressure 114/77 Pulse Oximetry 93 Oxygen Delivery Me thod Room Air Const: Other: General: AO X 3, no acute distress Resp: CTA bilateral CVS: S1,S2,RRR GI: +BS, NT, no distention Skin: No rash Neuro: known weakness in right arm Psych: appropriate affect DS: Data Data Completed and Pending Labs on day of discharge: Laboratory Results - last 24 hr 04/19/23 07:12 Creatinine 0.77 Estim Creat Clear Calc 145.1 Estimated GFR > 60 Preliminary micro results at discharge 04/15/23 16:17 Blood Culture - Preliminary Blood - Venous No growth after 48 hours. 04/15/23 16:18 Blood Culture - Preliminary Blood - Venous No growth after 48 hours. Discharge Plan Discharge Anticipated Discharge Date/Time: 04/21/23 09:46 Patient Disposition: Xfer SNF Discharge Diagnosis: Non-epileptic seizure Referrals: [facility] [Outside] - 1 Day (resume technician terminal and repeater care) Antonio Mcmillan DO [Primary Care Provider] - 1 Week Discharge Medications: New prednisone 20 mg Tablet 40 mg PO DAILY Qty: 4 0RF levetiracetam 1,000 mg Tablet 1,000 mg PO BID Qty: 60 0RF Continued multivitamin Tablet 1 tab PO DAILY quetiapine 25 mg Tablet 25 mg PO BID sennosides [senna] 8.6 mg Tablet 8.6 mg PO DAILY PRN (Reason: Constipation) acetaminophen 325 mg Tablet 650 mg PO Q6H PRN (Reason: Fever Or Pain) citalopram 10 mg Tablet 10 mg PO DAILY ondansetron HCl 4 mg Tablet 4 mg PO Q8H PRN (Reason: Nausea And Vomiting) olanzapine 10 mg Tablet 10 mg PO BEDTIME melatonin 3 mg Tablet 6 mg PO BEDTIME divalproex [Depakote] 500 mg Tablet,Delayed Release (Dr/Ec) 500 mg PO BID diphenhydramine HCl 25 mg Tablet 25 mg PO BEDTIME PRN (Reason: Sleep) ibuprofen 600 mg Tablet 600 mg PO Q8H PRN (Reason: Pain) albuterol sulfate 90 mcg/actuation Hfa Aerosol Inhaler 2 puff INHALATION Q6H PRN (Reason: Wheezing) Eliquis 5 mg Tablet 5 mg PO BID beclomethasone dipropionate 40 mcg/actuation Hfa Aerosol Breath Activated 1 inh INHALATION BID Discharge Orders: Discharge Order (Routine); Ordered 04/21/23 Ordered By: Erik Ely Diet: Advance to usual diet Activity on Discharge: As tolerated Stand Alone Forms: Patient Portal Discharge page Care Plan Goals: Control of seizure Health Concerns: Continue your medications for seizures in addit Plan of Treatment: Continue your seizure medication as before in addtion to keppra 1000 mg twice daily take prednisone 40 mg daily for 4 more days for reactive airway disease Finish taking Levaquin for Aspiration pneumonitis Assessment: as above Patient Instructions: Recurrent Seizures in Adults (ED)
--- NOTE | 2023-04-19 14:17 | MHC.CM.PN ---
Guardian/uncle Jarvis returned call to this CM at approx 0830, discussed dispo planning, plan remains to return to [facility] when medically cleared. No further questions. CM will continue to follow.
[2023-04-19] MEDS: OLANZapine 10 MG TABLET PO (20:33)
[2023-04-19] MEDS: Melatonin 3 MG TABLET 6 MG PO (20:33)
[2023-04-20] VITALS (13 sets, daily range): BP systolic 106–139; BP diastolic 52–89; PULSE 74–101; RESP 18–20; TEMP 36.1–36.9; O2SAT 89–97
[2023-04-20] MEDS: 0.9 % Sodium Chloride Flush 3 ML SYRINGE IVFLUSH ×3 (00:25→17:31)
[2023-04-20 09:06] LABS: Creatinine Clr Calc Pharmacy 134.6; Estimated Glomerular Filt Rate > 60
[2023-04-20] MEDS: Multivitamin TABLET 1 TAB PO (09:36)
[2023-04-20] MEDS: Apixaban 5 MG TABLET PO ×2 (09:36→19:52)
[2023-04-20] MEDS: Divalproex Sodium 500 MG TABLET.DR PO ×2 (09:37→19:52)
[2023-04-20] MEDS: levETIRAcetam 1,000 MG TABLET 1000 MG PO ×2 (09:37→19:52)
[2023-04-20] MEDS: QUEtiapine Fumarate 25 MG TABLET PO ×2 (09:37→19:52)
--- NOTE | 2023-04-20 14:31 | MHC.CM.PN ---
Addendum entered by Sylvia Ryan RN 04/20/23 15:28: Update: DC has been canceled by MD, no longer medically cleared. [facility] aware. LM for HCP Jarvis to notify. CM will continue to follow. Original Note: Per MD patient is medically cleared for DC. DP: Return to [facility] via BLS at 4pm. Facility and RN aware. LM for HCP to notify.
[2023-04-20] MEDS: predniSONE 20 MG TABLET 40 MG PO (15:02)
--- NOTE | 2023-04-20 15:45 | PC.NURSE ---
pt up in chair all shift. slept in naps. o2 sat on room air dropped to 72% placed on 2l sAT 95%. Later pt was back on room air with sat 88- 89%. 96% on 2l. Dr Ely aware. Chest xray done. started on prednisone.
[2023-04-20] MEDS: levoFLOXacin 750 MG TABLET PO (17:30)
[2023-04-20] MEDS: Fluticasone Propionate 100 MCG BLST.W.DEV 1 PUFF INHALE (19:04)
[2023-04-20] MEDS: Melatonin 3 MG TABLET 6 MG PO (19:52)
[2023-04-20] MEDS: OLANZapine 10 MG TABLET PO (19:52)
[2023-04-20] MEDS: Ibuprofen 600 MG TABLET PO (20:56)
[2023-04-21] MEDS: 0.9 % Sodium Chloride Flush 3 ML SYRINGE IVFLUSH ×2 (00:32→08:32)
[2023-04-21 01:00] VITALS: RESP 20
[2023-04-21 04:25] VITALS: BP 95/51; PULSE 75; RESP 18; TEMP 36.3; O2SAT 96
[2023-04-21 08:00] VITALS: BP 114/77; PULSE 81; RESP 20; TEMP 36.1; O2SAT 93
[2023-04-21 08:06] VITALS: PULSE 75; RESP 18; O2SAT 97
[2023-04-21] MEDS: Fluticasone Propionate 100 MCG BLST.W.DEV 1 PUFF INHALE (08:06)
[2023-04-21 08:09] LABS: Estimated Glomerular Filt Rate > 60
[2023-04-21] MEDS: predniSONE 20 MG TABLET 40 MG PO (08:27)
[2023-04-21] MEDS: Multivitamin TABLET 1 TAB PO (08:27)
[2023-04-21] MEDS: QUEtiapine Fumarate 25 MG TABLET PO (08:28)
[2023-04-21] MEDS: levETIRAcetam 1,000 MG TABLET 1000 MG PO (08:28)
[2023-04-21] MEDS: Apixaban 5 MG TABLET PO (08:28)
[2023-04-21] MEDS: Divalproex Sodium 500 MG TABLET.DR PO (08:28)
--- NOTE | 2023-04-21 10:40 | MHC.CM.PN ---
EMR reviewed and per MD rounds pt is medically cleared for DC, will return to [facility] via BLS at 2pm today. RN and facility are aware. LM for HCP/uncle to inform.
[2023-04-21 12:00] VITALS: BP 129/82; PULSE 99; RESP 20; TEMP 36.6; O2SAT 94
--- NOTE | 2023-05-03 22:53 | P.CDIM_ITS ---
PROVIDER RESPONSE TEXT: To clarify, the appropriate diagnosis supported by the clinical indicators: Sepsis is/was present and is a clinical diagnosis based on QUERY TEXT: PHYSICIAN'S DOCUMENTATION REQUEST Date of Query: 04/28/2023 06:59 AM EDT Patient Name: Ranjana Soto Admit Date: 04/15/2023 [facility], A review of the medical record indicates additional documentation may be needed. Please review below and update the documentation accordingly. Documentation on H&P note dated 04/15/23 included the diagnosis of Sepsis. The patient's infectious clinical indicators include: Per MD note: Patient meets sepsis criteria: Pneumonia, tachycardia, tachypnea, lactic acid 3.6 Patient given IVF and started on broad-spectrum antibiotics in ED Continue cefepime, vanco, started 04/15/2023 Titrate supplemental O2 >92, wean as tolerated Monitor respiratory status The Discharge Summary 04/19/23 does note list Sepsis as a diagnosis please clarify if Sepsis is still accurate and reflective of the patient's condition to ensure qualit y of the medical record. Sepsis is/was present and is a clinical diagnosis based on After study Sepsis has been ruled out Other (explain)Clinically unable to determine (explain)Thank you, Joan Colvin RN Use of terms such as suspected, likely, concern for, or probable (associated with a specific diagnosi s that is being evaluated, monitored, or treated as if it exists) are acceptable and can be coded in the inpatient se tting, when documented at the time of discharge. Please use your independent medical judgment in providing your response. THIS QUERY IS PART OF THE PERMANENT MEDICAL RECORD
== END 2023-04-21 12:15 | disposition skilled nursing facility (03) | DRG 720 ==
LOC: HO.ED 11:21 → HO.EDOVER 17:52 → HO.ICU 20:47 → HO.IMC 04-16 12:16
PROVIDERS: Internal Medicine Pulmonary Disease; Nurse Practitioner Family; Admitting Provider Student in an Organized Health Care Education/Training Program; Emergency Provider Student in an Organized Health Care Education/Training Program; PCP Hospitalist; Visit Provider Internal Medicine
DX: A41.9 Sepsis, unspecified organism (principal); J96.01 Acute respiratory failure with hypoxia; J69.0 Pneumonitis due to inhalation of food and vomit; F41.1 Generalized anxiety disorder; G40.909 Epilepsy, unspecified, not intractable, without status epilepticus; F43.10 Post-traumatic stress disorder, unspecified; Z20.822 Contact with and (suspected) exposure to COVID-19; Z86.718 Personal history of other venous thrombosis and embolism; Z87.820 Personal history of traumatic brain injury; Z79.01 Long term (current) use of anticoagulants; Z79.899 Other long term (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
CPT/HCPCS: 36415; 71045; 71275; 80048; 80076; 80164; 80202; 82040; 82140; 82565; 82803; 82947; 83605; 83690; 83735; 83880; 84100; 84146; 84484; 85025; 87040; 87635; 93005; 94640; 94660; 97161; 99285; J0692; J1953; J1956; J2060; J3370; Q9967

== ENCOUNTER → 2023-04-15 17:51 | Outpatient (BNV) | payer MEDICAID, SELFPAY | PROVIDERS: Admitting Provider Student in an Organized Health Care Education/Training Program; Emergency Provider Student in an Organized Health Care Education/Training Program; PCP Hospitalist; Visit Provider Internal Medicine Pulmonary Disease | DX: T17.900A Unspecified foreign body in respiratory tract, part unspecified causing asphyxiation, initial encounter (principal); J18.9 Pneumonia, unspecified organism; S06.9XAA Unspecified intracranial injury with loss of consciousness status unknown, initial encounter; G40.909 Epilepsy, unspecified, not intractable, without status epilepticus; F44.5 Conversion disorder with seizures or convulsions | CPT/HCPCS: 99232 ==

== ENCOUNTER → 2023-04-15 17:51 | Outpatient (BNV) | payer MEDICAID, SELFPAY | PROVIDERS: Admitting Provider Student in an Organized Health Care Education/Training Program; Emergency Provider Student in an Organized Health Care Education/Training Program; PCP Hospitalist; Visit Provider Student in an Organized Health Care Education/Training Program | DX: S06.9XAA Unspecified intracranial injury with loss of consciousness status unknown, initial encounter (principal); G40.909 Epilepsy, unspecified, not intractable, without status epilepticus; J18.9 Pneumonia, unspecified organism; T17.900A Unspecified foreign body in respiratory tract, part unspecified causing asphyxiation, initial encounter | CPT/HCPCS: 99223; 99232; 99239; 99499 ==

== ENCOUNTER → 2023-04-15 17:51 | Outpatient (BNV) | payer MEDICAID, SELFPAY | PROVIDERS: Admitting Provider Student in an Organized Health Care Education/Training Program; Emergency Provider Student in an Organized Health Care Education/Training Program; PCP Hospitalist; Visit Provider Nurse Practitioner Family | DX: J18.9 Pneumonia, unspecified organism (principal); G40.909 Epilepsy, unspecified, not intractable, without status epilepticus | CPT/HCPCS: 99232 ==

== ENCOUNTER 2023-05-03 20:06 | Inpatient (IN) | payer MEDICAID, SELFPAY ==
--- NOTE | ~2023-05-03 | XR_ITS ---
EXAMINATION: XR CHEST CLINICAL INFORMATION: Shortness of breath COMPARISON: Chest radiograph 04/20/2023, CT angiogram chest 04/15/2023 TECHNIQUE: Frontal view of the chest was obtained. FINDINGS: There is interval worsening of right diaphragm elevation which is now 11.7 cm higher than the left, previously 6.3 cm. Heart size within normal limits. Right basilar atelectasis/infiltrate is present, slightly worse than prior. New patchy infiltrates are seen in the left lung when compared to the prior chest radiograph, however similar infiltrates were seen at the time of the prior CT scan. No pleural effusions. No gross evidence of CHF. XR/XR chest 1V IMPRESSION: 1. Worsening of right diaphragm elevation with right basilar atelectasis/infiltrate. 2. Worsening of patchy infiltrates left lung. Infectious etiologies are suspected to be most likely.
--- NOTE | ~2023-05-03 | FL_ITS ---
EXAMINATION: Modified Barium Swallow with speech pathologist CLINICAL INFORMATION: Dysphagia. COMPARISON: None. TECHNIQUE: Modified barium swallow was performed under lateral fluoroscopy with patient in standing position. Different consistency of barium and barium mixed with solids was administered by the speech therapist. This was recorded in the department. FINDINGS: There was no laryngeal penetration or gross aspiration following following oral administration of multiple consistencies of liquids and solids with associated barium. Incidentally noted occipitocervical fusion hardware present dorsally extending from the occipital bone through C4. No gross hardware abnormality/complication. FLUOROSCOPY TIME: 1 minute 37 seconds Number of Spot Images: 1 DOSE AREA PRODUCT: 1439 uGy-m2 (microgray-meter squared) FL/FL barium swallow modified IMPRESSION: No laryngeal penetration/aspiration Please refer to the full speech therapy report to follow for details. This procedure was performed by Parth Saucedo PA-C, and supervised by Dr. Gilberto Morfin
[2023-05-03 20:15] VITALS: BP 137/84; PULSE 120; O2SAT 98
[2023-05-03 20:21] VITALS: BP 133/85; BP 135/84; PULSE 120; PULSE 126; RESP 22; TEMP 35.9; O2SAT 74; O2SAT 93; BMI 34.2
[2023-05-03] MEDS: Albuterol Sulfate 5 MG, Albuterol Sulfate (0.083%) 2.5 MG 7.5 MG INHALE (20:41)
[2023-05-03 20:42] VITALS: PULSE 118; RESP 18; O2SAT 93
--- NOTE | 2023-05-03 21:22 | PHA.MEDREC ---
Pharmacy Consult ? Medication Reconciliation Pharmacy has completed the medication reconciliation. Patient came from [facility] with med list. Viktoria Dinh ,KrissyD
[2023-05-03 21:44] LABS: Alanine Aminotransferase 49 U/L (0-40); Alkaline Phosphatase 65 U/L (39-117); Anion Gap 19 (12-20); Aspartate Amino Transferase 37 U/L (5-37); Bilirubin Total 0.4 mg/dL (0.0-1.0); Blood Urea Nitrogen 12 mg/dL (9-16); Calcium 9.4 mg/dL (8.4-10.2); Carbon Dioxide 24 mmol/L (22-29); Chloride 103 mmol/L (96-108); Creatinine Clr Calc Pharmacy 137.2; Estimated Glomerular Filt Rate > 60; Glucose Random 218 mg/dL (60-115); Potassium 4.9 mmol/L (3.3-5.1); Sodium 141 mmol/L (135-145); Total Protein 7.6 g/dL (6.5-8.0)
--- NOTE | 2023-05-03 21:53 | ED_ITS ---
HPI - SOB/Dyspnea General Chief Complaint: Dyspnea Stated Complaint: SOB Time Seen by Provider: 05/03/23 20:19 Source: patient, EMS and other Mode of arrival: EMS History of Present Illness HPI Narrative: 37-year-old male who is brought in by EMS from care [facility] where staff reports that his oxygenation was at 74%. Patient does have underlying left-sided deficits secondary to TBI, EMS administered albuterol and placed on supplemental oxygen with improvement in oxygenation to 93%. Patient reports chest discomfort 11/10. Related Data Home Medications Medication Instructions Recorded Confirmed acetaminophen 325 mg tablet 650 mg PO Q6H PRN Fever Or Pain 04/15/23 05/03/23 albuterol sulfate 90 mcg/actuation 2 puff inhalation Q6H PRN Wheezing 04/15/23 05/03/23 aerosol inhaler apixaban 5 mg tablet (Eliquis) 5 mg PO BID 04/15/23 05/03/23 beclomethasone dipropionate 40 1 inh inhalation BID 04/15/23 05/03/23 mcg/actuation HFA breath activated aerosol citalopram 10 mg tablet 10 mg PO DAILY 04/15/23 05/03/23 diphenhydramine HCl 25 mg tablet 25 mg PO BEDTIME PRN Sleep 04/15/23 05/03/23 divalproex 500 mg tablet,delayed 500 mg PO BID 04/15/23 05/03/23 release (Depakote) ibuprofen 600 mg tablet 600 mg PO Q6H PRN Pain 04/15/23 05/03/23 multivitamin 1 tab PO DAILY 04/15/23 05/03/23 olanzapine 10 mg tablet 10 mg PO BEDTIME 04/15/23 05/03/23 ondansetron HCl 4 mg tablet 4 mg PO Q8H PRN Nausea And Vomiting 04/15/23 05/03/23 quetiapine 25 mg tablet 25 mg PO BID 04/15/23 05/03/23 sennosides 8.6 mg tablet (senna) 8.6 mg PO DAILY PRN Constipation 04/15/23 05/03/23 guaifenesin 100 mg/5 mL oral liquid 300 mg PO Q6H PRN Cough 05/03/23 05/03/23 melatonin 5 mg tablet 5 mg PO BEDTIME 05/03/23 05/03/23 polyvinyl alcohol 1.4 % eye drops 1 drp ophthalmic (eye) Q6H PRN Dry 05/03/23 05/03/23 Eye(S) Previous Rx's Medication Instructions Recorded levetiracetam 1,000 mg tablet 1,000 mg PO BID #60 tabs 04/20/23 Allergies Allergy/AdvReac Type Severity Reaction Status Date / Time amoxicillin Allergy Anaphylaxis Verified 04/15/23 09:23 sertraline [From Zoloft] Allergy Anaphylaxis Verified 04/15/23 09:23 Review of Systems 2 Review of Systems: Pertinent positives and negatives as stated in [facility] Past Medical History Source: nursing notes reviewed Medical History TBI (traumatic brain injury) Social History Social History Household Members: None Housing: Jail Do you presently have visiting nurse or other home services: No Alcohol intake: former Patient Tobacco Use Status: Never used Tobacco Smoked in Last 30 Days: No e-Cigarette/Vaping Use: Never Used Use of substances other than those prescribed or required for medical reasons: No Advance Directives: No Advance Directives Information Provided: No service: No Physical Exam 2 Vital Signs: Vital Signs: Last Vital Signs Temp 96.7 F L 05/03/23 20:21 Pulse 118 H 05/03/23 22:42 Resp 20 05/03/23 22:42 BP 133/85 05/03/23 20:21 Pulse Ox 91 L 05/03/23 22:42 O2 Del Method Nasal Cannula 05/03/23 22:42 O2 Flow Rate 5 05/03/23 22:42 Oxygen Flow Rate 6 05/03/23 20:21 BMI result Body Mass Index 34.2 VITAL SIGNS: Reviewed. GENERAL: Well developed, well nourished, in no acute distress. HEAD: Normocephalic/atraumatic EYES: PERRLA, EOMI EARS: Ext canals without abnormality NOSE: Nares patent bilateral OROPHARYNX: no oral lesions noted, posterior pharynx clear NECK: Supple, no adenopathy LUNGS: Good inspiratory effort with decreased breath sounds in the right base and some scattered expiratory wheeze on the left. SpO2<93> on 2 L via nasal cannula CARDIOVASCULAR: Regular rate and rhythm without noted murmurs, no JVD or lower extremity edema. ABDOMEN: Soft, non-tender, non-distended with bowel sounds. MUSCULOSKELETAL: No tenderness, deformities, or effusions noted on gross inspection. EXTREMITIES: No cyanosis, clubbing or edema. SKIN: Inspection of the skin reveals no rashes NEUROLOGIC: Alert and strength and sensation to light touch were grossly intact on the right, left has motor deficits at baseline. Medications Administered Discontinued Medications Generic Name Dose Route Start Last Admin Trade Name Freq PRN Reason Stop Dose Admin Albuterol Sulfate 5 mg/ 7.5 mg 05/03/23 20:40 05/03/23 20:41 Albuterol Sulfate 2.5 mg INHALE 05/03/23 20:41 7.5 mg ONCE ONE Administration Medical Decision Making Medical Decision Making [facility] Narrative: 2020: 37-year-old male with history and clinical presentation, DDX: Asthma exacerbation, viral infection, pneumonia. 2220: Chest x-ray and leukocytosis consistent with suspected pneumonia, lactic acid/blood cultures/IV fluids as well as antibiotics have been ordered. 2304: Antibiotics/lactic acid/blood cultures and IV fluids delayed in administration secondary to IV access which was just obtained. Patient required placement of OxyMask. I reviewed all investigations and hematologic indices demonstrate a leukocytosis without left shift and no anemia or thrombocytopenia. Chemistry studies are otherwise grossly within normal limits there is no demonstration of JUSTINE or electrolytes/liver enzyme abnormalities. Viral testing negative for COVID-19. Chest x-ray demonstrates worsening hemidiaphragm with likely infiltrate and worsening of patchy infiltrates in the left lung. 1112: I discussed the case with inpatient hospitalist who accepts admission. Differential Diagnosis Differential Diagnoses: The differential diagnosis associated with the presentation includes Please see the discussion above Admission/Observation Consideration of admission/observation: Escalation of care including admission/observation considered Please see the discussion above Consult Healthcare Provider Management of the patient was discussed with: Hospitalist Please see the discussion above Lab Data [facility] Lab Attestation statement: I reviewed the patient's lab results. Please see the discussion above 05/03/23 21:50 05/03/23 21:10 Labs: Lab Results 05/03/23 05/03/23 05/03/23 Range/Units 21:10 21:50 22:45 WBC 12.2 H (4.8-10.8) X10*3/uL RBC 4.99 (4.60-5.80) X10*6/uL Hgb 15.2 (14.0-18.0) g/dl Hct 46.5 (42.0-52.0) % MCV 93.2 (80.0-98.0) fL MCH 30.5 (27.0-33.0) pg MCHC 32.7 (31.0-36.0) g/dl RDW 13.4 (11.0-16.0) % Plt Count 167 (160-400) X10*3/uL MPV 9.5 (9.4-12.4) fL Immature Gran % (Auto) 0.3 (0.0-0.4) % Neut % (Auto) 68.5 (45-73) % Lymph % (Auto) 25.0 (20-40) % Mcculloch % (Auto) 5.6 (2-11) % Eos % (Auto) 0.4 (0-4) % Baso % (Auto) 0.2 (0-2) % Lymph # (Auto) 3.1 (1.2-4.9) X10*3/uL Mcculloch # (Auto) 0.7 (0.1-1.2) X10*3/uL Eos # (Auto) 0.1 (0.0-0.4) X10*3/uL Baso # (Auto) 0.0 (0.0-0.2) X10*3/uL Abs Immat Gran (auto) 0.04 H (0.00-0.03) X10*3/uL Absolute Neuts (auto) 8.3 (2.0-8.3) x10*3/uL Absolute Nucleated RBC 0.020 H (0.0-0.012) X10*3/uL Nucleated RBC % (auto) 0.2 (0.0-0.2) /100WBC Sodium 141 (135-145) mmol/L Potassium 4.9 (3.3-5.1) mmol/L Chloride 103 (96-108) mmol/L Carbon Dioxide 24 (22-29) mmol/L Anion Gap 19 (12-20) BUN 12 (9-16) mg/dL Creatinine 0.87 (0.5-1.4) mg/dL Estim Creat Clear Calc 137.2 Estimated GFR > 60 Random Glucose 218 H (60-115) mg/dL Calcium 9.4 (8.4-10.2) mg/dL Total Bilirubin 0.4 (0.0-1.0) mg/dL AST 37 (5-37) U/L ALT 49 H (0-40) U/L Alkaline Phosphatase 65 (39-117) U/L Total Protein 7.6 (6.5-8.0) g/dL Albumin 4.0 (3.5-5.0) g/dL Beta-Hydroxybutyrate 0.08 (0.02-0.27) mmol/L COVID-19 (BERT) Negative (Negative) COVID-19 Clin Com See Note Influenza Type A (HEIDY) Negative (Negative) Influenza Type B (HEIDY) Negative (Negative) Influenza A & B Note See Note Independent Interpretation I performed an independent interpretation of an: EKG Interpretation: Sinus tachycardia, HR-117, no STEMI, MD/QRS/QTC is within normal limits. Radiology Impression Discussion of test interpretation with radiology: I have reviewed the radiologist's reading. Radiologist Impression: Please see the discussion above External Record Review External record reviewed: Outpatient record, Prior outpatient labs and Prior outpatient radiology Chronic Conditions Patient?s care impacted by: Other Chronic anticoagulation Procedures EJ/Peripheral Line Arm R: Time Out Performed: No Skin Cleansed in Sterile Fashion: Yes Size (gauge): 18 IV Secured and Dressing Applied: Yes Patient Tolerated Procedure: well Additional Comments: Peripheral IV access obtained via ultrasound guidance. Critical Care Time Critical Care Time Critical Care Time: Yes Total Critical Care Time: 45 Attestation: I personally attest to this time spent taking care of the patient. Discharge Plan Discharge Clinical Impression: Acute hypoxic respiratory failure, Pneumonia, Sepsis, Chronic anticoagulation Patient Disposition: Admitted As Inpatient
[2023-05-03 21:55] LABS: MANUAL DIFF FLAG NO
--- NOTE | 2023-05-03 21:57 | ECG_ITS ---
Test Reason : SOB Blood Pressure : / mmHG Vent. Rate : 117 BPM Atrial Rate : 117 BPM P-R Int : 136 ms QRS Dur : 078 ms QT Int : 308 ms P-R-T Axes : 047 034 044 degrees QTc Int : 429 ms Sinus tachycardia Nonspecific T wave abnormality Abnormal ECG When compared with ECG of 15-APR-2023 13:53, No significant change was found Referred By: Nilda Mesa Electronically Signed By:JANETH VELASCO MD
[2023-05-03 22:13] LABS: Basophils Percent Auto 0.2 % (0-2); Eosinophils Absolute Auto 0.1 X10*3/uL (0.0-0.4); Eosinophils Percent Auto 0.4 % (0-4); Hematocrit 46.5 % (42.0-52.0); Hemoglobin 15.2 g/dl (14.0-18.0); Imm Gran Abs Auto 0.04 X10*3/uL (0.00-0.03); Imm Gran Pct Auto 0.3 % (0.0-0.4); Lymphocytes Absolute Auto 3.1 X10*3/uL (1.2-4.9); Mean Corpuscular HGB Conc 32.7 g/dl (31.0-36.0); Mean Corpuscular Hemoglobin 30.5 pg (27.0-33.0); Mean Corpuscular Volume 93.2 fL (80.0-98.0); Mean Platelet Volume 9.5 fL (9.4-12.4); Monocytes Absolute Auto 0.7 X10*3/uL (0.1-1.2); Monocytes Percent Auto 5.6 % (2-11); NRBC Pct Auto 0.2 /100WBC (0.0-0.2); Neutrophils Absolute Auto 8.3 x10*3/uL (2.0-8.3); Neutrophils Percent Auto 68.5 % (45-73); Platelet Count 167 X10*3/uL (160-400); Red Blood Count 4.99 X10*6/uL (4.60-5.80); Red Cell Distribution Width 13.4 % (11.0-16.0); White Blood Count 12.2 X10*3/uL (4.8-10.8)
[2023-05-03 22:16] LABS: Beta-Hydroxybutyrate 0.08 mmol/L (0.02-0.27)
[2023-05-03 22:42] VITALS: PULSE 118; RESP 20; O2SAT 91
--- NOTE | 2023-05-03 22:53 | PC.NURSE ---
unable to place IV at this time, multiple attempts for IV access and lab work y Rm and Techs. Provider aware, will place U/S IV and obtain rest of lab work.
[2023-05-03 23:05] LABS: COVID-19 Test Negative (Negative); IDNOW Serial# 6674DD1D
[2023-05-03 23:08] LABS: IDNOW Serial# 55D5AD1C; Influenza A Negative (Negative); Influenza B2 Negative (Negative)
[2023-05-03 23:21] LABS: Lactic Acid 1.5 mmol/L (0.5-2.0)
--- NOTE | 2023-05-03 23:22 | P.HPHOSP_ITS ---
History of Present Illness Date of Service: 05/03/23 Chief Complaint: Shortness of breath and Hypoxia 37-year-old male with TBI, pseudoseizures and seizure disorder, elevated right hemidiaphragm due to enlarged liver, PTSD, and general anxiety disorder. He presents from SNF for evaluation of hypoxia. He has limited capacity patient; HPI supplemented by chart review, ED provider, and SNF record review. He is a resident of [facility] and was brought to ED for evaluation low oxygen level. O2 sat at the SNF was reported to be 74%. He was given a breathing treatment without improvement. EMS gave an additional breathing treatment with improvement of O2 sat to 93%. He reports 5/10 chest pain. X-ray shows worsening of right diaphragm elevation with right basilar atelectasis/infiltrate and worsening of patchy infiltrates in left lung. Infectious etiologies most likely . Last admitted to hospital from 04/15 to 04/19 for seizure and aspiration pneumonia with hypoxia; he was discharged with supplemental oxygen and Levqquin. WBC 12, lactic acid 1.5, HR 118, afebrile. Given cefepime in ED. Review of Systems 2 Review of Systems: Gen: no fever Resp: no sob, no cough CV: no chest, no MELENDEZ, no leg edema GI: No n/v, no abd pain Neuro: No confusion Yes all other systems are reviewed and are negative [facility] Medical History (Updated 05/03/23 @ 23:55 by Erik Ely MD) Psychogenic nonepileptic seizure Seizure disorder Chronic anticoagulation TBI (traumatic brain injury) Social History Household Members: None Housing: Group Home Do you presently have visiting nurse or other home services: No Alcohol intake: former Patient Tobacco Use Status: Never used Tobacco Smoked in Last 30 Days: No e-Cigarette/Vaping Use: Never Used Use of substances other than those prescribed or required for medical reasons: No Advance Directives: No Advance Directives Information Provided: No Nutrition Risks: No Nutritional Risk service: No Meds Allergies Allergy/AdvReac Type Severity Reaction Status Date / Time amoxicillin Allergy Anaphylaxis Verified 04/15/23 09:23 sertraline [From Zoloft] Allergy Anaphylaxis Verified 04/15/23 09:23 Home Medications Medication Instructions Recorded Confirmed Last Taken Type acetaminophen 325 mg tablet 650 mg PO Q6H PRN Fever Or Pain 04/15/23 05/03/23 Unknown History albuterol sulfate 90 mcg/actuation 2 puff inhalation Q6H PRN Wheezing 04/15/23 05/03/23 Unknown History aerosol inhaler apixaban 5 mg tablet (Eliquis) 5 mg PO BID 04/15/23 05/03/23 Unknown History beclomethasone dipropionate 40 1 inh inhalation BID 04/15/23 05/03/23 Unknown History mcg/actuation HFA breath activated aerosol citalopram 10 mg tablet 10 mg PO DAILY 04/15/23 05/03/23 Unknown History diphenhydramine HCl 25 mg tablet 25 mg PO BEDTIME PRN Sleep 04/15/23 05/03/23 Unknown History divalproex 500 mg tablet,delayed 500 mg PO BID 04/15/23 05/03/23 Unknown History release (Depakote) ibuprofen 600 mg tablet 600 mg PO Q6H PRN Pain 04/15/23 05/03/23 Unknown History multivitamin 1 tab PO DAILY 04/15/23 05/03/23 Unknown History olanzapine 10 mg tablet 10 mg PO BEDTIME 04/15/23 05/03/23 Unknown History ondansetron HCl 4 mg tablet 4 mg PO Q8H PRN Nausea And Vomiting 04/15/23 05/03/23 Unknown History quetiapine 25 mg tablet 25 mg PO BID 04/15/23 05/03/23 Unknown History sennosides 8.6 mg tablet (senna) 8.6 mg PO DAILY PRN Constipation 04/15/23 05/03/23 Unknown History guaifenesin 100 mg/5 mL oral liquid 300 mg PO Q6H PRN Cough 05/03/23 05/03/23 Unknown History melatonin 5 mg tablet 5 mg PO BEDTIME 05/03/23 05/03/23 Unknown History polyvinyl alcohol 1.4 % eye drops 1 drp ophthalmic (eye) Q6H PRN Dry 05/03/23 05/03/23 Unknown History Eye(S) Physical Exam 2 Vital Signs and Narrative: Vital Signs: Last Vital Signs Temp 96.7 F L 05/03/23 20:21 Pulse 118 H 05/03/23 22:42 Resp 20 05/03/23 22:42 BP 133/85 05/03/23 20:21 Pulse Ox 91 L 05/03/23 22:42 O2 Del Method Nasal Cannula 05/03/23 22:42 O2 Flow Rate 5 05/03/23 22:42 Oxygen Flow Rate 6 05/03/23 20:21 BMI result Body Mass Index 34.2 Const: Other: Constitutional: Alert, in mild respiratroy distress. Mental Status: Oriented to person, place and time. Eyes: Pupils are equal, round, and reactive to light. Ear, Nose, and Throat: Oropharynx clear, mucous membranes moist. Ears and nose without deformities. Trachea midline. Respiratory: Diffuse expiratory wheezing. Increased work of respiration. Diaphoretic breathing. Cardiovascular: S1, S2, tachy. No murmurs, rubs, or gallops. Gastrointestinal: Abdomen soft, non-tender, non-distended. Normal bowel sounds. Neurologic: Cranial nerves II-XII are grossly intact bilaterally. Chronic upper- right extremity deficit. Intact sensation and strength to upper left and lower extremities bilaterally. Skin: No rashes or lesions noted. Musculoskeletal: No cyanosis or clubbing. Extremities: No edema. Psychiatric: Normal mood and affect. Results Labs 05/03/23 21:50 05/03/23 21:10 Labs: Laboratory Results - last 24 hr 05/03/23 05/03/23 05/03/23 21:10 21:50 22:45 MCV 93.2 MCH 30.5 MCHC 32.7 RDW 13.4 Plt Count 167 MPV 9.5 Immature Gran % (Auto) 0.3 Neut % (Auto) 68.5 Lymph % (Auto) 25.0 [place] % (Auto) 5.6 Eos % (Auto) 0.4 Baso % (Auto) 0.2 Lymph # (Auto) 3.1 [place] # (Auto) 0.7 Eos # (Auto) 0.1 Baso # (Auto) 0.0 Abs Immat Gran (auto) 0.04 H Absolute Neuts (auto) 8.3 Absolute Nucleated RBC 0.020 H Nucleated RBC % (auto) 0.2 Anion Gap 19 Estim Creat Clear Calc 137.2 Estimated GFR > 60 Random Glucose 218 H Lactic Acid Calcium 9.4 Total Bilirubin 0.4 AST 37 ALT 49 H Alkaline Phosphatase 65 Total Protein 7.6 Albumin 4.0 Beta-Hydroxybutyrate 0.08 COVID-19 (BERT) Negative COVID-19 Clin Com See Note Influenza Type A (HEIDY) Negative Influenza Type B (HEIDY) Negative Influenza A & B Note See Note 05/03/23 23:05 MCV MCH MCHC RDW Plt Count MPV Immature Gran % (Auto) Neut % (Auto) Lymph % (Auto) [place] % (Auto) Eos % (Auto) Baso % (Auto) Lymph # (Auto) [place] # (Auto) Eos # (Auto) Baso # (Auto) Abs Immat Gran (auto) Absolute Neuts (auto) Absolute Nucleated RBC Nucleated RBC % (auto) Anion Gap Estim Creat Clear Calc Estimated GFR Random Glucose Lactic Acid 1.5 Calcium Total Bilirubin AST ALT Alkaline Phosphatase Total Protein Albumin Beta-Hydroxybutyrate COVID-19 (BERT) COVID-19 Clin Com Influenza Type A (HEIDY) Influenza Type B (HEIDY) Influenza A & B Note Imaging Radiologist's Impressions: Impressions Chest X-Ray 05/03/23 21:59 IMPRESSION: 1. Worsening of right diaphragm elevation with right basilar atelectasis/infiltrate. 2. Worsening of patchy infiltrates left lung. Infectious etiologies are suspected to be most likely. Assessment and Plan (1) Pneumonia: Status: Acute (2) Acute hypoxic respiratory failure: Status: Acute Plan 37-year-old male with TBI, pseudoseizures and seizure disorder, elevated right hemidiaphragm due to enlarged liver, PTSD, and general anxiety disorder here with acute hypoxic respiratory failure related to pneumonia likely from recurrent aspiration, he meets sepsis criteria. Sepsis ASpiration pneumnia -Continue Cefepime -Suplemental oxgyen to keep sat at 92 or better -Follow cultures Seizure disorder -Continue Depakote and Keppra. He is prone to having seizures, mostly pseudoseizures and will often time make request for IV Ativan Mood disorder Continue home meds JUJU--CPAP Chronic use anticoagulation Full Code DVT Prophylaxis: On Eliquis Pt will require a hospitalization of at least two midnights for treatment of?acute hypoxic respiratory failure, pneumonia and sepsis that I need IV antibiotics Time Spent With Patient Time: Total time managing care of this patient today ____ minutes. Quality Stroke Does the patient have a stroke diagnosis?: No VTE Prior VTE?: No VTE Risk Level:: Medical - moderate - high VTE Device Contraindication: Treatment Not Indicated VTE Drug Contraindication: N/A - Med Ordered
[2023-05-03] MEDS: cefEPime HCl 1 GM in 0.9 % Sodium Chloride 50 ML IV (23:26)
[2023-05-03] MEDS: 0.9 % Sodium Chloride 500 ML 999 ML IV (23:41)
[2023-05-04] VITALS (8 sets, daily range): BP systolic 104–124; BP diastolic 58–76; PULSE 102–113; RESP 12–18; TEMP 36.5–37; O2SAT 92–98; BMI 30.9
--- NOTE | 2023-05-04 00:03 | PC.NURSE ---
Admitting MD at bedside
--- NOTE | 2023-05-04 00:38 | PC.NURSE ---
respiratory at bedside, pt now on oxymask at 8L. 93%
[2023-05-04] MEDS: Melatonin 3 MG TABLET 6 MG PO ×2 (01:55→21:03)
--- NOTE | 2023-05-04 02:01 | PC.NURSE ---
pt requesting melatonin to sleep. nursing swallow eval done at bedside. pt passed, melatonin given per SEP. pt remaining sitting upright at this time
--- NOTE | 2023-05-04 06:37 | PC.NURSE ---
pt using urinal at bedside, respiratory at bedside.
[2023-05-04] MEDS: cefEPime HCl 1 GM in 0.9 % Sodium Chloride 50 ML IV ×3 (07:34→23:31)
[2023-05-04] MEDS: 0.9 % Sodium Chloride Flush 3 ML SYRINGE IVFLUSH ×2 (07:34→21:08)
[2023-05-04] MEDS: Azithromycin 500 MG in 0.9 % Sodium Chloride 250 ML 125 MG IV (08:19)
[2023-05-04] MEDS: Divalproex Sodium 500 MG TABLET.DR PO ×2 (09:35→21:03)
[2023-05-04] MEDS: QUEtiapine Fumarate 25 MG TABLET PO ×2 (09:36→21:03)
[2023-05-04] MEDS: Multivitamin TABLET 1 TAB PO (09:36)
[2023-05-04] MEDS: Escitalopram Oxalate 5 MG TABLET PO (09:36)
[2023-05-04] MEDS: Apixaban 5 MG TABLET PO ×2 (09:36→21:03)
[2023-05-04] MEDS: levETIRAcetam 1,000 MG TABLET 1000 MG PO ×2 (09:36→21:03)
--- NOTE | 2023-05-04 09:50 | PC.NURSE ---
patient resting in bed, sleeping off and on. patients respirations equal and unlabored. uses bedside urinal. patient currently has no complaints, medicated per MAR. pt curently on 8l oxymask, appears to be in no distress, patient is soft spoken and will conversate, follows commands.
--- NOTE | 2023-05-04 14:34 | MHC.CM.PN ---
Attempted to meet with patient in regards to discharge planning. 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 Per Gary at [facility], patient's medical guardian is his uncle, Jarvis. Patient's Elie's order guardian is Brea Montoya. Spoke with Jeremiahvikki via telephone at [phone]. Jarvis is aware patient is currently inpatient. Also aware patient will return to [facility] via BLS when medically stable. Continue to monitor for d/c needs.
--- NOTE | 2023-05-04 15:51 | HO.PM.IMPN ---
Subjective Subjective Date of Service: 05/04/23 Interval History: Seen and evaluated feels comfortable On Oxymask Tolerated MANUFACTURING SOFTWARE ENGINEER eval Review of Systems Review of Systems: Yes all other systems are reviewed and are negative Physical Exam Vital Signs: Vital Signs: Last Vital Signs Temp 98.6 F 05/04/23 07:30 Pulse 109 H 05/04/23 14:35 Resp 13 05/04/23 14:35 BP 113/65 05/04/23 14:35 Pulse Ox 98 05/04/23 14:35 O2 Del Method Oxymask 05/04/23 14:35 O2 Flow Rate 6 05/04/23 14:35 Oxygen Flow Rate 6 05/03/23 20:21 BMI result Body Mass Index 34.2 Const: Other: Constitutional : Awake, interactive, not in distress Neck : Normal inspection, Supple Cardiovascular : RRR, no JVP, no lower extremity edema Respiratory : good bilateral air entry, basal fine crackles, in mild resp distress, O2 supplement Gastrointestinal: soft, lax, Normal bowel sounds, Non tender Skin : Warm, Dry Neurological : Alert & oriented x3, No focal deficit , Chronic upper-right extremity deficit. Intact sensation and strength to upper left and lower extremities bilaterally. Objective Data Active Medications Acetaminophen (Acetaminophen 325 Mg Tablet) 650 mg PO Q6H PRN PRN Reason: Pain, Mild (Pain Scale 1-3) Acetaminophen (Acetaminophen 325 Mg Tablet) 650 mg PO Q6H PRN PRN Reason: Fever Or Pain Al Hydroxide/Mg Hydroxide (Magnesium Hydrox/Alum Hydrox 30 Ml Oral.Susp) 30 ml PO Q4H PRN PRN Reason: Heartburn/Nausea Albuterol Sulfate (Albuterol Sulfate 90 Mcg 8 Gm Inhaler) 2 puff INHALE Q6H PRN PRN Reason: Wheezing Apixaban (Apixaban 5 Mg Tablet) 5 mg PO BID [facility] Last Admin: 05/04/23 09:36 Dose: 5 mg Documented By: MYRA Artificial Tears (Artificial Tears 15 Ml Drops) 1 drop EYE-BOTH Q6H PRN PRN Reason: Dry Eye(S) Diphenhydramine HCl (Diphenhydramine Hcl 25 Mg Capsule) 25 mg PO BEDTIME PRN PRN Reason: Sleep Divalproex Sodium (Divalproex Sodium 500 Mg Tablet.) 500 mg PO BID [facility] Last Admin: 05/04/23 09:35 Dose: 500 mg Documented By: MYRA Escitalopram Oxalate (Escitalopram Oxalate 5 Mg Tablet) 5 mg PO DAILY [facility] Last Admin: 05/04/23 09:36 Dose: 5 mg Documented By: MYRA Fluticasone Propionate (Fluticasone Propionate 100 Mcg Blst.W.Dev) 1 puff INHALE RBID [facility] Last Admin: 05/04/23 08:41 Dose: Not Given Documented By: WAQAS Non-Admin Reason: Med Not Available Guaifenesin (Guaifenesin 100 Mg/5 Ml Liquid) 10 ml PO Q6H PRN PRN Reason: Cough Cefepime HCl 1 gm/ Sodium (Chloride) 50 mls @ 100 mls/hr IV Q8H [facility] Last Admin: 05/04/23 15:29 Dose: 100 mls/hr Documented By: MYRA Azithromycin 500 mg/ Sodium (Chloride) 250 mls @ 125 mls/hr IV Q24H [facility] Last Infusion: 05/04/23 10:19 Dose: Infused Documented By: MYRA Levetiracetam (Levetiracetam 1,000 Mg Tablet) 1,000 mg PO BID [facility] Last Admin: 05/04/23 09:36 Dose: 1,000 mg Documented By: MYRA Magnesium Hydroxide (Milk Of Magnesia 30 Ml Oral.Susp) 30 ml PO DAILY PRN PRN Reason: Constipation Melatonin (Melatonin 3 Mg Tablet) 6 mg PO BEDTIME PRN PRN Reason: Insomnia Last Admin: 05/04/23 01:55 Dose: 6 mg Documented By: JOE Melatonin (Melatonin 3 Mg Tablet) 6 mg PO BEDTIME [facility] Multivitamins/Vitamin C (Multivitamin Tablet) 1 tab PO DAILY [facility] Last Admin: 05/04/23 09:36 Dose: 1 tab Documented By: MYRA Olanzapine (Olanzapine 10 Mg Tablet) 10 mg PO BEDTIME [facility] Quetiapine Fumarate (Quetiapine Fumarate 25 Mg Tablet) 25 mg PO BID [facility] Last Admin: 05/04/23 09:36 Dose: 25 mg Documented By: MYRA Senna (Sennosides 8.6 Mg Tablet) 8.6 mg PO DAILY PRN PRN Reason: Constipation Sodium Chloride (0.9 % Sodium Chloride Flush 3 Ml Syringe) 3 ml IVFLUSH QSHIFT [facility] Last Admin: 05/04/23 07:34 Dose: 3 ml Documented By: PROVEN Labs 05/03/23 21:50 05/03/23 21:10 Labs: Laboratory Results - last 24 hr 05/03/23 05/03/23 05/03/23 21:10 21:50 22:45 MCV 93.2 MCH 30.5 MCHC 32.7 RDW 13.4 Plt Count 167 MPV 9.5 Immature Gran % (Auto) 0.3 Neut % (Auto) 68.5 Lymph % (Auto) 25.0 [place] % (Auto) 5.6 Eos % (Auto) 0.4 Baso % (Auto) 0.2 Lymph # (Auto) 3.1 [place] # (Auto) 0.7 Eos # (Auto) 0.1 Baso # (Auto) 0.0 Abs Immat Gran (auto) 0.04 H Absolute Neuts (auto) 8.3 Absolute Nucleated RBC 0.020 H Nucleated RBC % (auto) 0.2 Anion Gap 19 Estim Creat Clear Calc 137.2 Estimated GFR > 60 Random Glucose 218 H Lactic Acid Calcium 9.4 Total Bilirubin 0.4 AST 37 ALT 49 H Alkaline Phosphatase 65 Total Protein 7.6 Albumin 4.0 Beta-Hydroxybutyrate 0.08 COVID-19 (BERT) Negative COVID-19 Clin Com See Note Influenza Type A (HEIDY) Negative Influenza Type B (HEIDY) Negative Influenza A & B Note See Note 05/03/23 23:05 MCV MCH MCHC RDW Plt Count MPV Immature Gran % (Auto) Neut % (Auto) Lymph % (Auto) [place] % (Auto) Eos % (Auto) Baso % (Auto) Lymph # (Auto) [place] # (Auto) Eos # (Auto) Baso # (Auto) Abs Immat Gran (auto) Absolute Neuts (auto) Absolute Nucleated RBC Nucleated RBC % (auto) Anion Gap Estim Creat Clear Calc Estimated GFR Random Glucose Lactic Acid 1.5 Calcium Total Bilirubin AST ALT Alkaline Phosphatase Total Protein Albumin Beta-Hydroxybutyrate COVID-19 (BERT) COVID-19 Clin Com Influenza Type A (HEIDY) Influenza Type B (HEIDY) Influenza A & B Note Assessment and Plan (1) Sepsis: Status: Acute (2) Pneumonia: Status: Acute (3) Acute hypoxic respiratory failure: Status: Acute Plan 37-year-old male with TBI, pseudoseizures and seizure disorder, elevated right hemidiaphragm due to enlarged liver, PTSD, and general anxiety disorder here with acute hypoxic respiratory failure related to pneumonia likely from recurrent aspiration, he meets sepsis criteria. Sepsis 2/2 ASpiration pneumnia Continue Cefepime, add Azithromycin Suplemental oxgyen to keep sat at 92 or better Follow cultures Seizure disorder Continue Depakote and Keppra. He is prone to having seizures, mostly pseudoseizures and will often time make request for IV Ativan Mood disorder Continue home meds JUJU CPAP Chronic use anticoagulation Eliquis Full Code DVT Prophylaxis: On Eliquis Pt will require a hospitalization of overnight for treatment of?acute hypoxic respiratory failure, pneumonia and sepsis that I need IV antibiotics Quality Stroke Does the patient have a stroke diagnosis?: No VTE Prior VTE?: No VTE Risk Level:: Medical - moderate - high VTE Device Contraindication: Treatment Not Indicated VTE Drug Contraindication: N/A - Med Ordered
--- NOTE | 2023-05-04 16:56 | MHC.SL.SWA ---
Risk of Aspiration Due to: Lethargy Weak Cough Hx PNA Dysphasia Diet Status: Upgrade Liquid Consistency and Strategies for Safe Swallow: Liquid Intake Recommendation: Thin Liquid Intake Strategies: Small Sips Solid Food Consistency: Dietary Recommendations: Chopped/Advanced (NDD3) Oral Medication Intake: Whole with Liquid Please contact the pharmacy regarding appropriate crushable or liquid drug formulations that are available whenever modified delivery is recommended. Compensatory Strategies and Precautions to be Taken for Safe Swallow: Sitting Upright (90 deg) Supervision While Eating and Drinking for Safe Swallow: Total Assistance (1:1) Recommendation for Speech: Inpatient Speech Therapy Comment: Recommend CHOPPED/ADVANCED solids, THIN liquids, pills WHOLE w/ liquid. Modified solids recommended d/t observed fatigue when eating likely secondary to temporary removal of oxymask; patient agreeable to diet modification at this time. 1-1 assist required d/t oxymask. Patient able to drink independently w/ straw w/o assistance. Per [facility], patient's baseline is regular solids w/ assistance to cut foods and set up tray. Patient likely to upgrade solids once off oxymask however will continue to require assistance w/ setup d/t loss of use of right upper extremity. Aspiration precautions recommended d/t ?aspiration. MD, RD, RN notified. DEPUTY DIRECTOR to continue to follow d/t hx of recent PNA. Donor Relations Manager Clinican/Clinical Fellow: No Supervisory Statement: I have reviewed and agree with the student/clinical fellow's documentation: N/A Speech Language Pathologist: Charlette Hector M.A., [facility]3]-DEPUTY DIRECTOR
[2023-05-04] MEDS: Acetaminophen 325 MG TABLET 650 MG PO (21:03)
[2023-05-04] MEDS: OLANZapine 10 MG TABLET PO (21:03)
[2023-05-05] VITALS (7 sets, daily range): BP systolic 116–146; BP diastolic 57–82; PULSE 83–111; RESP 18–20; TEMP 36.6–37.2; O2SAT 90–98
--- NOTE | 2023-05-05 00:13 | PC.NURSE ---
Assumed care 0:00 midnight 05/05.
[2023-05-05] MEDS: Acetaminophen 325 MG TABLET 650 MG PO ×2 (03:58→20:10)
[2023-05-05 07:21] LABS: Anion Gap 16 (12-20); Blood Urea Nitrogen 8 mg/dL (9-16); Calcium 9.2 mg/dL (8.4-10.2); Carbon Dioxide 28 mmol/L (22-29); Chloride 101 mmol/L (96-108); Creatinine Clr Calc Pharmacy 153.6; Estimated Glomerular Filt Rate > 60; Glucose Random 96 mg/dL (60-115); Potassium 4.8 mmol/L (3.3-5.1); Sodium 140 mmol/L (135-145)
[2023-05-05] MEDS: Fluticasone Propionate 100 MCG BLST.W.DEV 1 PUFF INHALE ×2 (07:42→19:32)
[2023-05-05] MEDS: QUEtiapine Fumarate 25 MG TABLET PO ×2 (08:20→20:09)
[2023-05-05] MEDS: levETIRAcetam 1,000 MG TABLET 1000 MG PO ×2 (08:20→20:10)
[2023-05-05] MEDS: Divalproex Sodium 500 MG TABLET.DR PO ×2 (08:20→20:09)
[2023-05-05] MEDS: Multivitamin TABLET 1 TAB PO (08:20)
[2023-05-05] MEDS: Escitalopram Oxalate 5 MG TABLET PO (08:20)
[2023-05-05] MEDS: Apixaban 5 MG TABLET PO ×2 (08:20→20:10)
[2023-05-05] MEDS: cefEPime HCl 1 GM in 0.9 % Sodium Chloride 50 ML IV ×3 (08:21→23:49)
[2023-05-05] MEDS: Azithromycin 500 MG in 0.9 % Sodium Chloride 250 ML 125 MG IV (09:12)
--- NOTE | 2023-05-05 14:18 | MHC.SL.SWA ---
Speech Pathologist Impression: Risk of Aspiration Due to: Lethargy Weak Cough Dysphasia Diet Status: Recommend continue on Chopped/Advanced (NDD3) with Thin liquids, pills whole with liquid or in puree per patient preference. Liquid Consistency and Strategies for Safe Swallow: Liquid Intake Recommendation: Thin Liquid Intake Strategies: Small Sips Solid Food Consistency: Dietary Recommendations: Chopped/Advanced (NDD3) Additional Modifications to Solid Foods: Patient has RUE weakness and difficulty opening/prepping foods to his preference (e.g. opening packets, containers, etc.) and requires at a minimum periodic assistance/supervision during meals. Monitor O2 Saturation during meals, discontinue if SATS drop and do not rebound. Oral Medication Intake: Whole with Liquid Please contact the pharmacy regarding appropriate crushable or liquid drug formulations that are available whenever modified delivery is recommended. Compensatory Strategies and Precautions to be Taken for Safe Swallow: Sitting Upright (90 deg) Liquids from Cup Liquids from Straw Small Bites and Sips Alternate Liquids/Solids Supervision While Eating and Drinking for Safe Swallow: Total Supervision (1:1) Foods to Avoid: Tough, difficult to chew solids Swallowing Recommended Treatments: Compens. Strategy Educat. Recommendation for Speech: Inpatient Speech Therapy Comment:Patient seen at lunch meal. On chart review, noted HX aspiration pna with previous recent admission for this DX, Chest XR suspicious for chronic aspiration. Patient was seen for clinical swallow yesterday, with Chopped/Advanced (NDD3) and thin liquids recommended. Patient initially expressed interest in lunch, was assisted with repositioning in bed to sit comfortably with head of bed at 90 Degrees. Patient was offered bites of chopped turkey in gravy, with patient producing a rotary chew on texture and timely swallow, no evident residual after swallow. Swallow is difficult to fully palpate due to large fat pad under patient's chin. After two bites of this food, patient then stated he didn't want any more of food on plate. Patient did request brownie which came with meal (note: this is not a recommended food for NDD3 diet). FITNESS AND WELLNESS COORDINATOR offered brownie which patient took bite, then appeared to chew and pocket brownie, and swallow in piece meal, eventually clearing bolus. Coffee had come with meal, which is preferred by patient, patient took sips of coffee with normal oral phase and swallow noted, no clinical signs of aspiration. Patient was then observed independently taking a bite of brownie followed by sips of coffee, which appeared to assist him with managing this texture. Patient appears to be managing these diet textures without evidence of aspiration. However, given history of repeat aspiration pna, patient would benefit from MBSS study to rule out silent aspiration and other swallowing issues that cannot be visualized at bedside. Recommend continue on Chopped/Advanced (NDD3) with Thin liquids, pills whole with liquid or in puree per patient preference. MD notified of recommendation for MBSS by secure text. FITNESS AND WELLNESS COORDINATOR will continue to follow. Frequency/Duration: Date Range for Service Req: Timeline to reassess: Electrical Engineering Draftsperson Clinican/Clinical Fellow: No Supervisory Statement: I have reviewed and agree with the student/clinical fellow's documentation: N/A Speech Language Pathologist: Charlette Hector M.A., CCC-FITNESS AND WELLNESS COORDINATOR
--- NOTE | 2023-05-05 15:58 | P.PNIM_ITS ---
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 rec MBSS Review of Systems Review of Systems: Yes all other systems are reviewed and are negative Physical Exam 2 Vital Signs: Vital Signs: Last Vital Signs Temp 98.6 F 05/05/23 15:44 Pulse 98 05/05/23 15:44 Resp 18 05/05/23 15:44 BP 123/64 05/05/23 15:44 Pulse Ox 95 05/05/23 15:44 O2 Del Method Nasal Cannula 05/05/23 15:44 O2 Flow Rate 4 05/05/23 15:44 Oxygen Flow Rate 6 05/03/23 20:21 BMI result Body Mass Index 30.9 Const: Other: Constitutional : Awake, interactive, not in distress Neck : Normal inspection, Supple Cardiovascular : RRR, no JVP, no lower extremity edema Respiratory : good bilateral air entry, basal fine crackles, in mild resp distress, On O2 supplement Gastrointestinal: soft, lax, Normal bowel sounds, Non tender Skin : Warm, Dry Neurological : Alert & oriented x3, No focal deficit , Chronic upper-right extremity deficit. Intact sensation and strength to upper left and lower extremities bilaterally. Objective Data Active Medications Acetaminophen (Acetaminophen 325 Mg Tablet) 650 mg PO Q6H PRN PRN Reason: Pain, Mild (Pain Scale 1-3) Last Admin: 05/05/23 03:58 Dose: 650 mg Documented By: JAIMIE Acetaminophen (Acetaminophen 325 Mg Tablet) 650 mg PO Q6H PRN PRN Reason: Fever Or Pain Al Hydroxide/Mg Hydroxide (Magnesium Hydrox/Alum Hydrox 30 Ml Oral.Susp) 30 ml PO Q4H PRN PRN Reason: Heartburn/Nausea Albuterol Sulfate (Albuterol Sulfate 90 Mcg 8 Gm Inhaler) 2 puff INHALE Q6H PRN PRN Reason: Wheezing Apixaban (Apixaban 5 Mg Tablet) 5 mg PO BID LG Last Admin: 05/05/23 08:20 Dose: 5 mg Documented By: TOM Artificial Tears (Artificial Tears 15 Ml Drops) 1 drop EYE-BOTH Q6H PRN PRN Reason: Dry Eye(S) Diphenhydramine HCl (Diphenhydramine Hcl 25 Mg Capsule) 25 mg PO BEDTIME PRN PRN Reason: Sleep Divalproex Sodium (Divalproex Sodium 500 Mg Tablet.) 500 mg PO BID [facility] Last Admin: 05/05/23 08:20 Dose: 500 mg Documented By: TOM Escitalopram Oxalate (Escitalopram Oxalate 5 Mg Tablet) 5 mg PO DAILY [facility] Last Admin: 05/05/23 08:20 Dose: 5 mg Documented By: TOM Fluticasone Propionate (Fluticasone Propionate 100 Mcg Blst.W.Dev) 1 puff INHALE RBID [facility] Last Admin: 05/05/23 07:42 Dose: 1 puff Documented By: WAQAS Guaifenesin (Guaifenesin 100 Mg/5 Ml Liquid) 10 ml PO Q6H PRN PRN Reason: Cough Cefepime HCl 1 gm/ Sodium (Chloride) 50 mls @ 100 mls/hr IV Q8H [facility] Last Infusion: 05/05/23 09:15 Dose: Infused Documented By: TOM Azithromycin 500 mg/ Sodium (Chloride) 250 mls @ 125 mls/hr IV Q24H [facility] Last Infusion: 05/05/23 12:21 Dose: Infused Documented By: TOM Levetiracetam (Levetiracetam 1,000 Mg Tablet) 1,000 mg PO BID [facility] Last Admin: 05/05/23 08:20 Dose: 1,000 mg Documented By: TOM Magnesium Hydroxide (Milk Of Magnesia 30 Ml Oral.Susp) 30 ml PO DAILY PRN PRN Reason: Constipation Melatonin (Melatonin 3 Mg Tablet) 6 mg PO BEDTIME PRN PRN Reason: Insomnia Last Admin: 05/04/23 01:55 Dose: 6 mg Documented By: JOE Melatonin (Melatonin 3 Mg Tablet) 6 mg PO BEDTIME [facility] Last Admin: 05/04/23 21:03 Dose: 6 mg Documented By: SOPHIE Multivitamins/Vitamin C (Multivitamin Tablet) 1 tab PO DAILY [facility] Last Admin: 05/05/23 08:20 Dose: 1 tab Documented By: TOM Olanzapine (Olanzapine 10 Mg Tablet) 10 mg PO BEDTIME [facility] Last Admin: 05/04/23 21:03 Dose: 10 mg Documented By: SOPHIE Quetiapine Fumarate (Quetiapine Fumarate 25 Mg Tablet) 25 mg PO BID [facility] Last Admin: 05/05/23 08:20 Dose: 25 mg Documented By: TOM Senna (Sennosides 8.6 Mg Tablet) 8.6 mg PO DAILY PRN PRN Reason: Constipation Sodium Chloride (0.9 % Sodium Chloride Flush 3 Ml Syringe) 3 ml IVFLUSH QSHIFT [facility] Last Admin: 05/05/23 08:31 Dose: Not Given Documented By: TOM Non-Admin Reason: IV Running Labs 05/03/23 21:50 05/05/23 06:44 Labs: Laboratory Results - last 24 hr 05/05/23 06:44 MCV Cancelled MCH Cancelled MCHC Cancelled RDW Cancelled Plt Count Cancelled MPV Cancelled Absolute Nucleated RBC Cancelled Nucleated RBC % (auto) Cancelled Anion Gap 16 Estim Creat Clear Calc 153.6 Estimated GFR > 60 Random Glucose 96 Calcium 9.2 Microbiology Microbiology Results: Microbiology 05/03/23 22:57 Blood Culture - Preliminary Blood - Venous No growth after 24 hours. 05/03/23 23:05 Blood Culture - Preliminary Blood - Venous No growth after 24 hours. Assessment and Plan (1) Sepsis: Status: Acute (2) Pneumonia: Status: Acute (3) Acute hypoxic respiratory failure: Status: Acute Plan 37-year-old male with TBI, pseudoseizures and seizure disorder, elevated right hemidiaphragm due to enlarged liver, PTSD, and general anxiety disorder here with acute hypoxic respiratory failure related to pneumonia likely from recurrent aspiration, he meets sepsis criteria. Sepsis 2/2 ASpiration pneumnia Continue Cefepime, add Azithromycin Suplemental oxgyen to keep sat at 92 or better Follow cultures Seizure disorder Continue Depakote and Keppra. He is prone to having seizures, mostly pseudoseizures and will often time make request for IV Ativan Mood disorder Continue home meds JUJU CPAP Chronic use anticoagulation Eliquis Full Code DVT Prophylaxis: On Eliquis Pt will require a hospitalization of overnight for treatment of?acute hypoxic respiratory failure, pneumonia and sepsis that I need IV antibiotics Quality Stroke Does the patient have a stroke diagnosis?: No VTE Prior VTE?: No VTE Risk Level:: Medical - moderate - high VTE Device Contraindication: Treatment Not Indicated VTE Drug Contraindication: N/A - Med Ordered
[2023-05-05] MEDS: 0.9 % Sodium Chloride Flush 3 ML SYRINGE IVFLUSH ×2 (16:28→20:11)
[2023-05-05] MEDS: Melatonin 3 MG TABLET 6 MG PO (20:09)
[2023-05-05] MEDS: OLANZapine 10 MG TABLET PO (20:10)
[2023-05-06] VITALS: BP 122/62; PULSE 101; RESP 18; TEMP 36.8; O2SAT 96
[2023-05-06 03:18] VITALS: BP 123/77; PULSE 87; RESP 18; TEMP 36.5; O2SAT 98
[2023-05-06] MEDS: Acetaminophen 325 MG TABLET 650 MG PO ×2 (03:33→10:13)
[2023-05-06] MEDS: Divalproex Sodium 500 MG TABLET.DR PO (07:50)
[2023-05-06] MEDS: Apixaban 5 MG TABLET PO (07:50)
[2023-05-06] MEDS: Escitalopram Oxalate 5 MG TABLET PO (07:50)
[2023-05-06] MEDS: Multivitamin TABLET 1 TAB PO (07:50)
[2023-05-06] MEDS: levETIRAcetam 1,000 MG TABLET 1000 MG PO (07:50)
[2023-05-06] MEDS: QUEtiapine Fumarate 25 MG TABLET PO (07:50)
[2023-05-06] MEDS: 0.9 % Sodium Chloride Flush 3 ML SYRINGE IVFLUSH (07:51)
[2023-05-06] MEDS: Azithromycin 500 MG in 0.9 % Sodium Chloride 250 ML 125 MG IV (07:51)
[2023-05-06 07:57] VITALS: BP 135/78; PULSE 91; RESP 18; TEMP 36.7; O2SAT 97
[2023-05-06 08:01] VITALS: PULSE 85; RESP 16; O2SAT 97
[2023-05-06] MEDS: Fluticasone Propionate 100 MCG BLST.W.DEV 1 PUFF INHALE (08:01)
--- NOTE | 2023-05-06 09:55 | MHC.SLORD ---
Speech Language Pathology Order Status: MBSS order received. Pt scheduled for 11am today, 05/06. Radiology to arrange for transport.
[2023-05-06] MEDS: cefTRIAXone sodium 1 GM in 0.9 % Sodium Chloride 50 ML IV (10:11)
--- NOTE | 2023-05-06 10:47 | PC.RT ---
pt continues to refuse to wear cpap at night.
[2023-05-06 11:41] VITALS: BP 124/85; PULSE 97; RESP 18; TEMP 36.5; O2SAT 97
--- NOTE | 2023-05-06 13:35 | PM.DS ---
DS: Providers Provider Date of Service: 05/06/23 Date of admission: 05/04/23 00:21 Primary care physician: Antonio Mcmillan, DS: Diagnosis Discharge Diagnosis (1) Sepsis: Status: Acute (2) Pneumonia: Status: Acute (3) Acute hypoxic respiratory failure: Status: Acute DS: Summary Hospital Course Hospital Course: Admission note HPI 37-year-old male with TBI, pseudoseizures and seizure disorder, elevated right hemidiaphragm due to enlarged liver, PTSD, and general anxiety disorder. He presents from SNF for evaluation of hypoxia. He has limited capacity patient; HPI supplemented by chart review, ED provider, and SNF record review. He is a resident of [facility] and was brought to ED for evaluation low oxygen level. O2 sat at the SNF was reported to be 74%. He was given a breathing treatment without improvement. EMS gave an additional breathing treatment with improvement of O2 sat to 93%. He reports 5/10 chest pain. X-ray shows worsening of right diaphragm elevation with right basilar atelectasis/infiltrate and worsening of patchy infiltrates in left lung. Infectious etiologies most likely . Last admitted to hospital from 04/15 to 04/19 for seizure and aspiration pneumonia with hypoxia; he was discharged with supplemental oxygen and Levqquin. WBC 12, lactic acid 1.5, HR 118, afebrile. Given cefepime in ED. Hospital course Admitted for hypoxic respiratory failure in setting of Sepsis 2/2 ASpiration pneumnia that was treated with IV Cefepime and Azithromycin. Cultures remained negative. Weaned down O2 supplement but still requiring 3L of O2 at time of discharge that would be weaned down in [facility]. Had MBSS study that showed no aspiration or penetration. to keep on NDD3 w thin liquids. Continue antibiotics as advised Continue modified diet : NDD3 w thin liquids Time Attestation Discharge coordination time: Greater than 30 minutes Quality: Safe Use of Opioids Does Pt have an Active Cancer Diagnosis on the Problem List?: No Quality: Stroke Does the patient have a stroke diagnosis?: No Physical Exam Vital Signs: Vital Signs: Last Vital Signs Temp 97.7 F 05/06/23 11:41 Pulse 97 05/06/23 11:41 Resp 18 05/06/23 11:41 BP 124/85 05/06/23 11:41 Pulse Ox 97 05/06/23 11:41 O2 Del Method Nasal Cannula 05/06/23 11:41 O2 Flow Rate 4 05/06/23 11:41 Oxygen Flow Rate 6 05/03/23 20:21 BMI result Body Mass Index 30.9 Const: Other: Constitutional : Awake, interactive, not in distress Neck : Normal inspection, Supple Cardiovascular : RRR, no JVP, no lower extremity edema Respiratory : good bilateral air entry, basal fine crackles, in mild resp distress, On O2 supplement Gastrointestinal: soft, lax, Normal bowel sounds, Non tender Skin : Warm, Dry Neurological : Alert & oriented x3, No focal deficit , Chronic upper-right extremity deficit. Intact sensation and strength to upper left and lower extremities bilaterally. DS: Data Data Completed and Pending Completed studies during hospitalization [Text1]: Procedures Assistance with Respiratory Ventilation, Less than 24 Consecutive Hours, Continuous Positive Airway Pressure (04/15/23) Labs on day of discharge: Preliminary micro results at discharge 05/03/23 23:05 Blood Culture - Preliminary Blood - Venous No growth after 48 hours. 05/03/23 22:57 Blood Culture - Preliminary Blood - Venous No growth after 48 hours. Imaging Chest x-ray: Radiologist's impression: ITS Impressions Chest X-Ray 05/03/23 21:59 IMPRESSION: 1. Worsening of right diaphragm elevation with right basilar atelectasis/infiltrate. 2. Worsening of patchy infiltrates left lung. Infectious etiologies are suspected to be most likely. Discharge Plan Discharge Anticipated Discharge Date/Time: 05/06/23 13:28 Patient Disposition: Xfer [facility] Discharge Diagnosis: aspiration pneumonia Referrals: [facility] [Outside] - 1 Week Antonio Mcmillan DO [Primary Care Provider] - 1 Week Discharge Medications: New azithromycin 500 mg tablet 500 mg PO DAILY 5 Days Qty: 5 0RF cefuroxime axetil 500 mg tablet 500 mg PO BID Qty: 10 0RF Continued polyvinyl alcohol 1.4 % Drops 1 drp OPHTHALMIC (EYE) Q6H PRN (Reason: Dry Eye(S)) guaifenesin 100 mg/5 mL Liquid 300 mg PO Q6H PRN (Reason: Cough) melatonin 5 mg Tablet 5 mg PO BEDTIME multivitamin Tablet 1 tab PO DAILY quetiapine 25 mg Tablet 25 mg PO BID sennosides [senna] 8.6 mg Tablet 8.6 mg PO DAILY PRN (Reason: Constipation) acetaminophen 325 mg Tablet 650 mg PO Q6H PRN (Reason: Fever Or Pain) citalopram 10 mg Tablet 10 mg PO DAILY ondansetron HCl 4 mg Tablet 4 mg PO Q8H PRN (Reason: Nausea And Vomiting) olanzapine 10 mg Tablet 10 mg PO BEDTIME divalproex [Depakote] 500 mg Tablet,Delayed Release (Dr/Ec) 500 mg PO BID diphenhydramine HCl 25 mg Tablet 25 mg PO BEDTIME PRN (Reason: Sleep) ibuprofen 600 mg Tablet 600 mg PO Q6H PRN (Reason: Pain) albuterol sulfate 90 mcg/actuation Hfa Aerosol Inhaler 2 puff INHALATION Q6H PRN (Reason: Wheezing) Eliquis 5 mg Tablet 5 mg PO BID beclomethasone dipropionate 40 mcg/actuation Hfa Aerosol Breath Activated 1 inh INHALATION BID levetiracetam 1,000 mg Tablet 1,000 mg PO BID Qty: 60 0RF Discharge Orders: Discharge Order (Routine); Ordered 05/06/23 Ordered By: Curtis Márquez Diet: Advance to usual diet Activity on Discharge: As tolerated Stand Alone Forms: Patient Portal Discharge page Care Plan Goals: Read below Health Concerns: Read below Plan of Treatment: Read below Assessment: Continue antibiotics as prescribed
--- NOTE | 2023-05-06 13:35 | MHC.CM.PN ---
Pt is medically cleared for D/C back to [facility] today, transport set up via BLS/[facility] at 5pm today. Pts guardian Brea Montoya called at [phone] and informed of D/C.
--- NOTE | 2023-05-06 13:37 | MHC.CM.PN ---
Addendum entered by Sylvia Shearer 05/06/23 14:21: Pts Uncle Jarvis called by this CM, voicemail left to update him that Ranjana is discharging back to [facility] today. Original Note: Pt is medically cleared for D/C back to [facility] [place] today, transport set up via BLS/[facility] at 5pm today. Pts guardian Brea Lindsay called at [phone] and informed of D/C.
--- NOTE | 2023-05-06 14:10 | MHC.SL.IMP ---
Date of Plan of Treatment: 05/06/23 Onset of Symptoms/Illness: 05/06/23 Date Treatment Started: 05/06/23 Admitting Diagnosis: Dysphagia, unspecified Primary Speech & Language Diagnosis: R13.12 Oropharyngeal Phase Dysphagia Secondary Speech & Language Diagnosis: Reason for Today's Visit: [id number] Modified Barium Swallow Study Comments: Pt on 8L on oxymask at time of evaluation. Patient presented with moderately soft voice. Pre-evaluation Dietary Consistencies: Chopped/Advanced (NDD3) Pre-evaluation Liquid Consistency: Thin Pre-evaluation Medication Administration: [facility] Fall Risk Assessment Score: Oral Motor Exam Facial Symmetry: Normal for Patient Symmetrical Mouth Occlusion: Teeth Separation Oral-Facial Lip Miscellaneous Comment: Unable to assess, Pt could not follow directions and/or could not perform. Tongue Size: Large Oral Expression Ability: Moderate Impairment Is patient able to manage secretions?: Yes Is patient able to produce volitional cough?: Yes Food and Liquid Trials: Oral Impairment: Lip Closure: 0=No labial escape Oral Impairment: Tongue Control During Bolus Hold: 0=Cohesive bolus between tongue to palatal seal Oral Impairment: Bolus Preparation/Mastication: 0=Timely and efficient chewing and mashing Oral Impairment: Bolus Transport/Lingual Motion: 0=Brisk tongue motion Oral Impairment: Oral Residue: 2=Residue collection on oral structures Oral Impairment:Initiation of Pharyngeal Swallow: 3=Bolus head in pyriforms Pharyngeal Impairment: Soft Palate Elevation: 1=Trace column of contrast or air between SP and PW Pharyngeal Impairment: Laryngeal Elevation: 0=Complete superior movement of thyroid cartilage (see description) Pharyngeal Impairment: Anterior Hyoid Excursion: 0=Complete anterior movement Pharyngeal Impairment: Epiglottic Movement: 0=Complete inversion Pharyngeal Impairment: Laryngeal Vestibular Closure:: 0=Complete: no air/contrast in laryngeal vestibule Pharyngeal Impairment: Pharyngeal Stripping Wave: 1=Present: diminished Pharyngeal Impairment: Pharyngeal Contraction: 0=Complete Pharyngeal Impairment: Pharyngoesophageal Segment Openin=Partial distention/partial duration: partial obstruction of flow Pharyngeal Impairment: Tongue Base (TB) Retraction: 1=Trace column of contrast/air between TB and posterior PW Pharyngeal Impairment: Pharyngeal Residue: 2=Collection of residue within or on pharyngeal structures Pharyngeal Impairment: Esophageal Clearance Upright Position: Did not test Impressions and Recommendations Clinical Observations: MBSImP Results: Lip closure for intraoral bolus containment resulted in no labial escape. Tongue control during bolus hold maintained a cohesive bolus held between tongue to palate seal. Bolus preparation and mastication resulted in timely and efficient chewing and mashing. Bolus transport/lingual motion was with brisk tongue motion. Oral residue was a collection on oral structures. Initiation of the pharyngeal swallow occurred when the bolus head was in the pyriform sinuses. Soft palate elevation allowed a trace column of contrast or air between the soft palate and the pharyngeal wall. Laryngeal elevation demonstrated complete superior movement of the thyroid cartilage with complete approximation of the arytenoids to the epiglottic petiole. Anterior hyoid excursion demonstrated complete anterior movement. Epiglottic movement resulted in complete inversion. Laryngeal vestibular closure was complete, as indicated by no air or contrast within the laryngeal vestibule at the height of the swallow. Pharyngeal stripping wave was present, but diminished. Pharyngeal contraction could not be determined due to logistical reasons not related to physiologic impairment. Pharyngoesophageal segment opening was completely distended for complete duration with no obstruction of bolus flow. Tongue base retraction allowed a trace column of contrast or air between the retracted tongue base and the posterior pharyngeal wall. Pharyngeal residue was a collection of residue within or on pharyngeal structures. Esophageal clearance in the upright position could not be assessed due to logistical reasons not related to physiologic impairment. Summary: Mr. Soto was administered Thin Liquids via Spoon and Straw, Puree Solids and Regular Solids mixed with Barium contrast. Relative strengths included oral preparation phase, bolus hold containment, epiglottic inversion, hyoid excursion, thyroid elevation, UES dilation. The following components of the swallow were deemed impaired, oral residue, nasopharyngeal closure, pharyngeal stripping, and pharyngeal clearance. In all, he demonstrated enough areas of strength that his risk of aspiration is deemed to be low. If his pneumonia is aspiration related, it is not likely due to dysphagia. Other sources of pneumonia should be considered when carrying out his treatment plan. Liquid Intake Recommendation: Thin Liquid Intake Strategies: Small Sips Dietary Recommendations: Chopped/Advanced (NDD3) Medication Administration: Whole with Liquid Please contact the pharmacy regarding appropriate crushable or liquid drug formulations that are available whenever modified delivery is recommended. Compensatory Strategies Recommended: Sitting Upright (90 deg) Liquids from Straw Small Bites and Sips Alternate Liquids/Solids Rate of Ingestion Change Oral Check Avoid Specific Foods Supervision during eating and or drinking: Intermittent Supervision Recommended Treatments: Compens. Strategy Educat. Recommendation for Speech Therapy: Inpatient Speech Therapy Text Comment: Recommend Chopped/Advanced Solids (NDD3) and Thin Liquids. Medications Whole with Liquid, or Puree, as tolerated. Intermittent supervision recommended. Advance diet as tolerated at the discretion of his treating SPORTS MANAGER after D/C. Frequency/Duration: Timeline to reassess: PRN Core Maker Clinician/Clinical Fellow: No Supervisory Statement: N/A Speech Language Pathologist: Donta Levi M.A., CCC-SPORTS MANAGER
[2023-05-06 15:04] VITALS: BP 135/82; PULSE 89; RESP 18; TEMP 36.4; O2SAT 96
== END 2023-05-06 17:02 | DRG 720 ==
LOC: HO.ED 22:20 → HO.EDOVER 05-04 00:29 → HO.IMC 05-04 19:04
PROVIDERS: Admitting Provider Internal Medicine; Emergency Provider Student in an Organized Health Care Education/Training Program; PCP Hospitalist; Visit Provider Student in an Organized Health Care Education/Training Program
DX: A41.9 Sepsis, unspecified organism (principal); J96.01 Acute respiratory failure with hypoxia; J69.0 Pneumonitis due to inhalation of food and vomit; F41.1 Generalized anxiety disorder; G40.909 Epilepsy, unspecified, not intractable, without status epilepticus; G47.33 Obstructive sleep apnea (adult) (pediatric); I10 Essential (primary) hypertension; Z20.822 Contact with and (suspected) exposure to COVID-19; Z87.820 Personal history of traumatic brain injury; Z79.01 Long term (current) use of anticoagulants; Z79.899 Other long term (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
CPT/HCPCS: 36415; 71045; 74230; 80048; 80053; 82010; 83605; 85025; 87040; 87502; 87635; 92526; 92610; 92611; 93005; 94640; 99285; J0456; J0692; J0696

== ENCOUNTER 2023-05-04 00:21 | Outpatient (BNV) | payer MEDICAID, SELFPAY | END 2023-05-06 11:00 | PROVIDERS: Admitting Provider Internal Medicine; Emergency Provider Student in an Organized Health Care Education/Training Program; PCP Hospitalist; Visit Provider Radiology Diagnostic Radiology | DX: R13.10 Dysphagia, unspecified (principal) | CPT/HCPCS: 74230 ==

== ENCOUNTER → 2023-05-04 00:21 | Outpatient (BNV) | payer MEDICAID, SELFPAY | PROVIDERS: Admitting Provider Internal Medicine; Emergency Provider Student in an Organized Health Care Education/Training Program; PCP Hospitalist; Visit Provider Student in an Organized Health Care Education/Training Program | DX: J18.9 Pneumonia, unspecified organism (principal); J96.01 Acute respiratory failure with hypoxia | CPT/HCPCS: 99223; 99232; 99233; 99239 ==

== ENCOUNTER 2023-05-07 12:04 | Emergency (ER) | payer MEDICAID, SELFPAY ==
--- NOTE | 2023-05-07 | ECG_ITS ---
Test Reason : SEIZURE Blood Pressure : / mmHG Vent. Rate : 103 BPM Atrial Rate : 103 BPM P-R Int : 134 ms QRS Dur : 078 ms QT Int : 324 ms P-R-T Axes : 038 063 045 degrees QTc Int : 424 ms Sinus tachycardia RSR' or QR pattern in V1 suggests right ventricular conduction delay Nonspecific ST abnormality Abnormal ECG When compared with ECG of 03-MAY-2023 22:21, T wave amplitude has decreased in Lateral leads Referred By: Generic ED Physician Electronically Signed By:JANETH VELASCO MD
--- NOTE | ~2023-05-07 | XR_ITS ---
EXAMINATION: XR CHEST CLINICAL INFORMATION: Shortness of breath COMPARISON: 05/03/2023 and selected images from priors TECHNIQUE: AP portable upright view of the chest was obtained. FINDINGS: Low lung volumes. Extensive patchy airspace disease throughout the left lung appears improved. Increasing consolidation of the right lower lobe with new small effusion. Grossly stable heart and mediastinum. No obstructive gas pattern. Bony pseudoarthrosis of the right coracoclavicular articulation likely from prior trauma. Nonobstructive gas pattern. Residual barium contrast in the left upper quadrant. XR/XR chest 1V IMPRESSION: 1. Clearing left lung airspace opacities. 2. Increasing right lower lobe consolidation with new small effusion.
[2023-05-07 12:12] VITALS: BP 140/82; PULSE 100; O2SAT 96
[2023-05-07 12:15] VITALS: BP 131/92; PULSE 110; RESP 15; TEMP 37.1; O2SAT 87; BMI 34.1
[2023-05-07 12:17] LABS: Glucose, Whole Blood 104 mg/dL (60-115)
[2023-05-07 13:14] VITALS: BP 126/89; PULSE 102; RESP 18; O2SAT 87
[2023-05-07 13:15] VITALS: BP 130/88; PULSE 96; RESP 18; O2SAT 94
--- NOTE | 2023-05-07 13:20 | ED.SEIZURE ---
HPI - Seizure General Chief Complaint: Seizure Stated Complaint: WIT SZ @ SNF,SOB 84% RA PER EMS Time Seen by Provider: 05/07/23 13:04 Source: EMS Mode of arrival: EMS Limitations: other (TBI) History of Present Illness HPI Narrative: Patient comes to the emergency room from [facility]. According to the staff, patient stated he was not feeling well, patient lowered himself to the ground. Staff reports the patient had multiple seizures over 30 minutes. However, they also informed EMS that the patient has history of pseudoseizures. Patient was discharged yesterday from the hospital, patient was treated for pneumonia. Patient states he does not feel well. Patient has no complaints. Seizure History: Yes Place: SNF Related Data Home Medications Medication Instructions Recorded Confirmed acetaminophen 325 mg tablet 650 mg PO Q6H PRN Fever Or Pain 04/15/23 05/03/23 albuterol sulfate 90 mcg/actuation 2 puff inhalation Q6H PRN Wheezing 04/15/23 05/03/23 aerosol inhaler apixaban 5 mg tablet (Eliquis) 5 mg PO BID 04/15/23 05/03/23 beclomethasone dipropionate 40 1 inh inhalation BID 04/15/23 05/03/23 mcg/actuation HFA breath activated aerosol citalopram 10 mg tablet 10 mg PO DAILY 04/15/23 05/03/23 diphenhydramine HCl 25 mg tablet 25 mg PO BEDTIME PRN Sleep 04/15/23 05/03/23 divalproex 500 mg tablet,delayed 500 mg PO BID 04/15/23 05/03/23 release (Depakote) ibuprofen 600 mg tablet 600 mg PO Q6H PRN Pain 04/15/23 05/03/23 multivitamin 1 tab PO DAILY 04/15/23 05/03/23 olanzapine 10 mg tablet 10 mg PO BEDTIME 04/15/23 05/03/23 ondansetron HCl 4 mg tablet 4 mg PO Q8H PRN Nausea And Vomiting 04/15/23 05/03/23 quetiapine 25 mg tablet 25 mg PO BID 04/15/23 05/03/23 sennosides 8.6 mg tablet (senna) 8.6 mg PO DAILY PRN Constipation 04/15/23 05/03/23 guaifenesin 100 mg/5 mL oral liquid 300 mg PO Q6H PRN Cough 05/03/23 05/03/23 melatonin 5 mg tablet 5 mg PO BEDTIME 05/03/23 05/03/23 polyvinyl alcohol 1.4 % eye drops 1 drp ophthalmic (eye) Q6H PRN Dry 05/03/23 05/03/23 Eye(S) Previous Rx's Medication Instructions Recorded levetiracetam 1,000 mg tablet 1,000 mg PO BID #60 tabs 04/20/23 azithromycin 500 mg tablet 500 mg PO DAILY 5 days #5 tabs 05/06/23 cefuroxime axetil 500 mg tablet 500 mg PO BID #10 tabs 05/06/23 Allergies Allergy/AdvReac Type Severity Reaction Status Date / Time amoxicillin Allergy Anaphylaxis Verified 05/07/23 12:17 sertraline [From Zoloft] Allergy Anaphylaxis Verified 05/07/23 12:17 Review of Systems Review of Systems: Constitutional : No Weight loss, No Fever, No Chills, No Night Sweats, No Fatigue, complaining of generalized malaise, not feeling well ENT/Mouth : No Hearing loss, No Ear Pain, No Nasal Congestion, No Sinus Pain, No Hoarseness, No sore throat, No Rhinorrhea, No Swallowing Difficulty Eyes: No Eye Pain, No Swelling, No Redness, No Foreign Body, No Discharge, No Vision Changes Cardiovascular : No Chest Pain, No SOB, No Dyspnea on Exertion, No Orthopnea, No Edema, No Palpitations Respiratory : No Cough, No Sputum, No Wheezing, No Smoke Exposure, No Dyspnea Gastrointestinal : No Nausea, No Vomiting, No Diarrhea, No Constipation, No abdominal Pain, No Hematochezia, No Melena Genitourinary : no irregular bleeding, No Dysuria, No Urinary Frequency, No Hematuria, No Urinary Incontinence, No Urgency, No Flank Pain, No Urinary Flow Changes, No Hesitancy Musculoskeletal : No joint pain, No Myalgias, No Joint Swelling Skin : No Skin Lesions, No rash Neuro : No Weakness, No Numbness, No Paresthesias, No Loss of Consciousness, No Dizziness, No Headache Psych : No Anxiety/Panic, No Depression, No SI/HI/AH/VH, No Social Issues, Heme/Lymph: No Bruising, No Bleeding,No Lymphadenopathy Endocrine : No Polyuria, No Polydipsia, No Temperature Intolerance REPLACED BY [facility] Past Medical History Medical History Psychogenic nonepileptic seizure Seizure disorder Chronic anticoagulation TBI (traumatic brain injury) Social History Social History Household Members: Other Housing: Assisted Living Facility Do you presently have visiting nurse or other home services: No Alcohol intake: former Patient Tobacco Use Status: Never used Tobacco Smoked in Last 30 Days: No e-Cigarette/Vaping Use: Never Used Use of substances other than those prescribed or required for medical reasons: No Advance Directives: No service: No Physical Exam Vital Signs: Vital Signs: Last Vital Signs Temp 98.7 F 05/07/23 12:15 Pulse 96 05/07/23 13:15 Resp 18 05/07/23 13:15 BP 130/88 05/07/23 13:15 Pulse Ox 94 05/07/23 13:15 O2 Del Method Nasal Cannula 05/07/23 13:15 O2 Flow Rate 2 05/07/23 13:15 BMI result Body Mass Index 34.1 Const: Other: Appearance: Alert. Oriented X3. No acute distress. Eyes: Pupils equal, round and reactive to light. ENT: Pharynx normal. Neck: Normal inspection. Neck supple. No lymph nodes noted. No crepitus CVS: Normal heart rate and rhythm. Pulses normal. Normal S1 and S2 Respiratory: No respiratory distress. Breath sounds normal. No Wheezing. No rales . Patient on 3 L of oxygen (prescribed does from discharge from yesterday) Abdomen: Soft and nontender. No rigidity. No distention. Skin: Skin warm and dry. Normal skin color. Normal skin turgor. Extremities: No lower extremity edema. No Lacerations. No Rash Neuro: Oriented X 3. No motor deficit. No sensory deficit. Moving all extremities. No slurred speech. CN 2 through 12 grossly intact Psych: calm, cooperative, normal affect Course Course Course Narrative: -all of patient's labs pending Medical Decision Making Medical Decision Making MDM Narrative: -my interpretation of labs, normal hematology, marched improved from previous labs. Normal chemistry, normal lactic acid. It is possible the patient had a pseudo seizure rather than a seizure. -my interpretation of chest x-ray, the x-rays look similar. However, the radiologist reports improvement on the left lung, and increased right lower lobe consolidation with a new small effusion. -in the emergency room, patient oxygenating 95% on 2 L. Patient is still on antibiotics at home. Clinically, patient is doing well. At this time, there will be nothing different that we would be doing in the hospital setting than at the nursing facility, they do have oxygen for him. Differential Diagnosis Differential Diagnoses: The differential diagnosis associated with the presentation includes (Seizure, pseudo-seizure) Admission/Observation Consideration of admission/observation: Escalation of care including admission/observation considered (Patient was discharged from the hospital yesterday, back today, readmission was considered) Lab Data MDM Lab Attestation statement: I reviewed the patient's lab results. 05/07/23 13:47 05/07/23 13:47 Labs: Lab Results 05/07/23 05/07/23 Range/Units 12:14 13:47 WBC 6.2 (4.8-10.8) X10*3/uL RBC 4.78 (4.60-5.80) X10*6/uL Hgb 14.4 (14.0-18.0) g/dl Hct 44.4 (42.0-52.0) % MCV 92.9 (80.0-98.0) fL MCH 30.1 (27.0-33.0) pg MCHC 32.4 (31.0-36.0) g/dl RDW 12.8 (11.0-16.0) % Plt Count 175 (160-400) X10*3/uL MPV 9.2 L (9.4-12.4) fL Immature Gran % (Auto) 0.2 (0.0-0.4) % Neut % (Auto) 58.8 (45-73) % Lymph % (Auto) 33.0 (20-40) % Drew % (Auto) 6.5 (2-11) % Eos % (Auto) 1.0 (0-4) % Baso % (Auto) 0.5 (0-2) % Lymph # (Auto) 2.0 (1.2-4.9) X10*3/uL Drew # (Auto) 0.4 (0.1-1.2) X10*3/uL Eos # (Auto) 0.1 (0.0-0.4) X10*3/uL Baso # (Auto) 0.0 (0.0-0.2) X10*3/uL Abs Immat Gran (auto) 0.01 (0.00-0.03) X10*3/uL Absolute Neuts (auto) 3.6 (2.0-8.3) x10*3/uL Absolute Nucleated RBC 0.000 (0.0-0.012) X10*3/uL Nucleated RBC % (auto) 0.0 (0.0-0.2) /100WBC Sodium 142 (135-145) mmol/L Potassium 4.0 (3.3-5.1) mmol/L Chloride 101 (96-108) mmol/L Carbon Dioxide 31 H (22-29) mmol/L Anion Gap 14 (12-20) BUN 11 (9-16) mg/dL Creatinine 0.79 (0.5-1.4) mg/dL Estim Creat Clear Calc 136.7 Estimated GFR > 60 POC Glucose 104 (60-115) mg/dL Random Glucose 80 (60-115) mg/dL Lactic Acid 0.8 (0.5-2.0) mmol/L Calcium 10.1 D (8.4-10.2) mg/dL Total Bilirubin 0.3 (0.0-1.0) mg/dL AST 36 (5-37) U/L ALT 46 H (0-40) U/L Alkaline Phosphatase 60 (39-117) U/L Total Protein 7.9 (6.5-8.0) g/dL Albumin 4.3 (3.5-5.0) g/dL Independent Interpretation I performed an independent interpretation of an: Plain X-Ray Radiology Impression Discussion of test interpretation with radiology: I have reviewed the radiologist's reading. Radiologist Impression: IMPRESSION: 1. Clearing left lung airspace opacities. 2. Increasing right lower lobe consolidation with new small effusion. Critical Care Time Critical Care Time Critical Care Time: Yes Total Critical Care Time: 60 Attestation: I have personally provided critical care time. Time includes review of lab data, radiology results, discussion with consultants, and monitoring for potential decompensation. Intervention performed as documented. Discharge Plan Discharge Clinical Impression: Psychogenic nonepileptic seizure Patient Disposition: Home, Self-Care Instructions: Recurrent Seizures in Adults (ED) Additional Instructions: Please follow-up with your primary care physician tomorrow. If you have any worsening or new symptoms, please return to the emergency room or call 911 Prescriptions: No Action polyvinyl alcohol 1.4 % Drops 1 drp OPHTHALMIC (EYE) Q6H PRN (Reason: Dry Eye(S)) guaifenesin 100 mg/5 mL Liquid 300 mg PO Q6H PRN (Reason: Cough) melatonin 5 mg Tablet 5 mg PO BEDTIME azithromycin 500 mg tablet 500 mg PO DAILY 5 Days Qty: 5 0RF cefuroxime axetil 500 mg tablet 500 mg PO BID Qty: 10 0RF multivitamin Tablet 1 tab PO DAILY quetiapine 25 mg Tablet 25 mg PO BID sennosides [senna] 8.6 mg Tablet 8.6 mg PO DAILY PRN (Reason: Constipation) acetaminophen 325 mg Tablet 650 mg PO Q6H PRN (Reason: Fever Or Pain) citalopram 10 mg Tablet 10 mg PO DAILY ondansetron HCl 4 mg Tablet 4 mg PO Q8H PRN (Reason: Nausea And Vomiting) olanzapine 10 mg Tablet 10 mg PO BEDTIME divalproex [Depakote] 500 mg Tablet,Delayed Release (Dr/Ec) 500 mg PO BID diphenhydramine HCl 25 mg Tablet 25 mg PO BEDTIME PRN (Reason: Sleep) ibuprofen 600 mg Tablet 600 mg PO Q6H PRN (Reason: Pain) albuterol sulfate 90 mcg/actuation Hfa Aerosol Inhaler 2 puff INHALATION Q6H PRN (Reason: Wheezing) Eliquis 5 mg Tablet 5 mg PO BID beclomethasone dipropionate 40 mcg/actuation Hfa Aerosol Breath Activated 1 inh INHALATION BID levetiracetam 1,000 mg Tablet 1,000 mg PO BID Qty: 60 0RF
--- NOTE | 2023-05-07 13:30 | PC.NURSE ---
pt on 2L O@ sats 94%. ON RA he desatts to 86. Pt is difficult stick. 2 nurses have tried for IV line. Tech currently attempting to draw labs - pending. vitals otherwise stable. NSR on tele seizure precautions in place, no seizure activity noted. Pt reports feeling OK and reports 5/10 central headache
[2023-05-07 13:51] LABS: MANUAL DIFF FLAG NO
[2023-05-07 13:52] LABS: Basophils Percent Auto 0.5 % (0-2); Eosinophils Absolute Auto 0.1 X10*3/uL (0.0-0.4); Hematocrit 44.4 % (42.0-52.0); Hemoglobin 14.4 g/dl (14.0-18.0); Imm Gran Abs Auto 0.01 X10*3/uL (0.00-0.03); Imm Gran Pct Auto 0.2 % (0.0-0.4); Mean Corpuscular HGB Conc 32.4 g/dl (31.0-36.0); Mean Corpuscular Hemoglobin 30.1 pg (27.0-33.0); Mean Corpuscular Volume 92.9 fL (80.0-98.0); Mean Platelet Volume 9.2 fL (9.4-12.4); Monocytes Absolute Auto 0.4 X10*3/uL (0.1-1.2); Monocytes Percent Auto 6.5 % (2-11); Neutrophils Absolute Auto 3.6 x10*3/uL (2.0-8.3); Neutrophils Percent Auto 58.8 % (45-73); Platelet Count 175 X10*3/uL (160-400); Red Blood Count 4.78 X10*6/uL (4.60-5.80); Red Cell Distribution Width 12.8 % (11.0-16.0); White Blood Count 6.2 X10*3/uL (4.8-10.8)
--- NOTE | 2023-05-07 13:58 | PC.NURSE ---
lung sounds clear - diminished right lower lobe
[2023-05-07 14:04] LABS: Lactic Acid 0.8 mmol/L (0.5-2.0)
[2023-05-07 14:09] LABS: Alanine Aminotransferase 46 U/L (0-40); Albumin Level 4.3 g/dL (3.5-5.0); Alkaline Phosphatase 60 U/L (39-117); Anion Gap 14 (12-20); Aspartate Amino Transferase 36 U/L (5-37); Bilirubin Total 0.3 mg/dL (0.0-1.0); Blood Urea Nitrogen 11 mg/dL (9-16); Calcium 10.1 mg/dL (8.4-10.2); Carbon Dioxide 31 mmol/L (22-29); Chloride 101 mmol/L (96-108); Creatinine Clr Calc Pharmacy 136.7; Estimated Glomerular Filt Rate > 60; Glucose Random 80 mg/dL (60-115); Sodium 142 mmol/L (135-145); Total Protein 7.9 g/dL (6.5-8.0)
[2023-05-07 15:19] VITALS: BP 124/81; PULSE 98; RESP 15; TEMP 37.3; O2SAT 95
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
== END 2023-05-07 17:27 | disposition home or self-care (01) ==
PROVIDERS: Emergency Provider Emergency Medicine; PCP Hospitalist
DX: R56.9 Unspecified convulsions (principal); Z87.820 Personal history of traumatic brain injury; Z79.01 Long term (current) use of anticoagulants; Z79.899 Other long term (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
CPT/HCPCS: 36415; 71045; 80053; 82947; 83605; 85025; 87040; 93005; 99283; 99284

== ENCOUNTER 2023-05-09 09:49 | Outpatient (AMB) | payer MEDICAID, SELFPAY ==
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
[2023-05-09 10:09] VITALS: BMI 34.1
== END 2023-05-09 11:10 | disposition home or self-care (01) ==
PROVIDERS: PCP Hospitalist; Visit Provider Physician Assistant
DX: M67.911 Unspecified disorder of synovium and tendon, right shoulder (principal)
CPT/HCPCS: 99203

== ENCOUNTER 2023-05-09 12:47 | Outpatient (REF) | payer MEDICAID, SELFPAY ==
--- NOTE | ~2023-05-09 | XR_ITS ---
EXAMINATION: XR SHOULDER, RIGHT CLINICAL INFORMATION: Pain in right shoulder. Patient has paralysis of right side. Unable to supinate palm. Unable to raise arm for axial thin. COMPARISON: AP chest 05/07/2023. CT chest 04/15/2023. TECHNIQUE: 2 views of the right shoulder. FINDINGS: The bones are diffusely demineralized. Lung pathology was better characterized on most recent chest radiograph of 05/07/2023. There is a large 4.8 cm calcific/ossific density overlying the inferior aspect of the distal right clavicle. Mild degenerative changes in the acromioclavicular joint with joint space narrowing and hypertrophic change. Degenerative changes with hypertrophic change along the glenoid. Bones are diffusely demineralized. Evaluation limited as patient unable to fully cooperate with positioning for images. XR/XR shoulder RT min 2V IMPRESSION: Limited images of the right shoulder demonstrate a large 4.8 cm calcific/ossific density located along the inferior aspect of the distal right clavicle, of indeterminate age and etiology. This finding was demonstrated on prior recent radiographs of the chest dating back to 04/20/2023 and is of uncertain etiology. Correlation with the clinical exam is recommended to determine further management including possible additional imaging with MRI. Direct correlation with dedicated prior images of the shoulder is recommended and if prior images are provided, an addendum will be dictated. In the absence of prior images, MRI is recommended for further evaluation.
== END 2023-05-09 12:48 | disposition home or self-care (01) ==
LOC: HO.HOSX 12:47
PROVIDERS: Visit Provider Physician Assistant
DX: M67.911 Unspecified disorder of synovium and tendon, right shoulder (principal); S14.3XXA Injury of brachial plexus, initial encounter
CPT/HCPCS: 73030; 99202

== ENCOUNTER 2023-06-01 13:14 | Outpatient (AMB) | payer MEDICAID, SELFPAY ==
[2023-06-01 13:19] VITALS: BP 126/80; PULSE 96; O2SAT 96; BMI 34.8
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
== END 2023-06-01 13:53 | disposition home or self-care (01) ==
PROVIDERS: PCP Hospitalist; Visit Provider Nurse Practitioner Family
DX: J45.909 Unspecified asthma, uncomplicated (principal); Z87.09 Personal history of other diseases of the respiratory system; R09.02 Hypoxemia; R06.00 Dyspnea, unspecified
CPT/HCPCS: 99204

== ENCOUNTER → 2023-06-01 13:14 | Outpatient (BNVA) | payer MEDICAID, SELFPAY | PROVIDERS: PCP Hospitalist; Visit Provider Nurse Practitioner Family | DX: R09.02 Hypoxemia (principal); J45.909 Unspecified asthma, uncomplicated; R06.00 Dyspnea, unspecified; Z87.09 Personal history of other diseases of the respiratory system | CPT/HCPCS: 99202 ==

== ENCOUNTER 2023-06-07 20:08 | Emergency (ER) | payer MEDICAID, SELFPAY ==
[2023-06-07 20:18] VITALS: BP 136/88; BP 141/85; PULSE 101; PULSE 80; RESP 18; TEMP 36.9; O2SAT 95; O2SAT 97
--- NOTE | 2023-06-07 20:24 | ECG_ITS ---
Test Reason : CHEST PAIN Blood Pressure : / mmHG Vent. Rate : 102 BPM Atrial Rate : 102 BPM P-R Int : 162 ms QRS Dur : 074 ms QT Int : 302 ms P-R-T Axes : 045 068 016 degrees QTc Int : 393 ms Sinus tachycardia Cannot rule out Anterior infarct , age undetermined Abnormal ECG When compared with ECG of 07-MAY-2023 12:17, No significant change was found Referred By: Kali Fields Electronically Signed By:GARRET COLE
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
[2023-06-07 21:12] LABS: MANUAL DIFF FLAG NO
[2023-06-07 21:19] LABS: Hematocrit 41.8 % (42.0-52.0); Hemoglobin 13.8 g/dl (14.0-18.0); Mean Corpuscular Hemoglobin 30.9 pg (27.0-33.0); Mean Corpuscular Volume 93.7 fL (80.0-98.0); Mean Platelet Volume 9.7 fL (9.4-12.4); Platelet Count 161 X10*3/uL (160-400); Red Blood Count 4.46 X10*6/uL (4.60-5.80); Red Cell Distribution Width 12.9 % (11.0-16.0); White Blood Count 5.5 X10*3/uL (4.8-10.8)
[2023-06-07 21:24] LABS: Basophils Percent Auto 0.4 % (0-2); Eosinophils Absolute Auto 0.1 X10*3/uL (0.0-0.4); Eosinophils Percent Auto 1.2 % (0-4); Imm Gran Abs Auto 0.02 X10*3/uL (0.00-0.03); Imm Gran Pct Auto 0.4 % (0.0-0.4); Lymphocytes Absolute Auto 2.4 X10*3/uL (1.2-4.9); Lymphocytes Percent Auto 42.2 % (20-40); Monocytes Absolute Auto 0.4 X10*3/uL (0.1-1.2); Monocytes Percent Auto 6.8 % (2-11); Neutrophils Absolute Auto 2.8 x10*3/uL (2.0-8.3)
[2023-06-07 21:34] LABS: Anion Gap 15 (12-20); Blood Urea Nitrogen 15 mg/dL (9-16); Calcium 9.2 mg/dL (8.4-10.2); Carbon Dioxide 28 mmol/L (22-29); Chloride 102 mmol/L (96-108); Creatinine Clr Calc Pharmacy 125.2; Estimated Glomerular Filt Rate > 60; Glucose Random 204 mg/dL (60-115); Potassium 4.4 mmol/L (3.3-5.1); Sodium 141 mmol/L (135-145)
[2023-06-07 21:42] LABS: Troponin-I High Sensitivity < 2.7 ng/L (<3.5-35.0)
[2023-06-07 22:37] VITALS: BP 113/76; PULSE 94; RESP 20; TEMP 36.8; O2SAT 96
--- NOTE | 2023-06-07 23:30 | PC.NURSE ---
PT CALM AND COOPERATIVE AWAITING EMS RIDE BACK TO [facility]
[2023-06-08 00:49] VITALS: BP 121/87; PULSE 90; RESP 11; TEMP 36.8; O2SAT 97
--- NOTE | 2023-06-08 01:00 | PC.NURSE ---
vss. report given to ems prior to transport. this rn contacted [facility] rn to given rn to rn report prior to transport. discharge instructions sent with ems to give to [facility] staff
== END 2023-06-08 01:02 | disposition home or self-care (01) ==
PROVIDERS: Emergency Provider Internal Medicine; PCP Hospitalist
DX: R07.89 Other chest pain (principal); M79.601 Pain in right arm; Z79.899 Other long term (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
CPT/HCPCS: 36415; 80048; 84484; 85025; 93005; 99284; 99285

== ENCOUNTER → 2023-06-07 20:24 | Outpatient (BNV) | payer MEDICAID, SELFPAY | PROVIDERS: Emergency Provider Internal Medicine; PCP Hospitalist; Visit Provider Internal Medicine | DX: R00.0 Tachycardia, unspecified (principal) | CPT/HCPCS: 93010 ==

== ENCOUNTER 2023-06-09 08:50 | Inpatient (IN) | payer MEDICAID, SELFPAY ==
[2023-06-09] VITALS (10 sets, daily range): BP systolic 130–153; BP diastolic 80–108; PULSE 87–110; RESP 13–22; TEMP 36.3–37.1; O2SAT 92–100; BMI 37.3
--- NOTE | ~2023-06-09 | CT_ITS ---
EXAMINATION: CT HEAD WITHOUT CONTRAST CLINICAL INFORMATION: Multiple seizures. COMPARISON: There are no prior studies available for comparison. TECHNIQUE: Multidetector CT imaging of the head was obtained without the use of intravenous contrast. Coronal and sagittal reformatted images were generated at the technologist workstation. This CT examination was performed using dose optimization techniques as appropriate, variously including the following: *Automated exposure control *Adjustment of mA and/or kV according to patient size (this includes techniques or standardized protocols for targeted exams where dose is matched to indication/reason for exam; i.e. extremities or head) *Use of iterative reconstruction technique DLP: 1193 mGy-cm. FINDINGS: There is no evidence of acute intracranial hemorrhage or territorial infarction. No abnormal mass-effect or midline shift is seen. [place] to white matter differentiation is well preserved. No extra-axial fluid collections are identified. There is moderate prominence of the lateral, 3rd and 4th ventricles without commensurate sulcal prominence. There is asymmetric prominence of the temporal horn of the right lateral ventricle. There are no acute osseous findings. There is slight irregular contour of the somatic arteries bilaterally, which may be consistent sequelae of prior trauma. There are sequelae of a suboccipital plate and superior cervical pedicular screws, causing moderate beam hardening artifact. There is a small dilma hole in the right frontal bone, which may be consistent with a track of a removed pressure monitor or ventriculostomy catheter. There are no acute soft tissue abnormalities. The mastoid air cells and visualized paranasal sinuses are well aerated. CT/CT head/brain wo IV con IMPRESSION: 1. There are no acute bleeds or territorial infarcts. No masses are demonstrated. 2. There is moderate prominence of the lateral, 3rd and 4th ventricles without commensurate sulcal prominence. There is asymmetric prominence of the temporal horn of the right lateral ventricle. There are postoperative changes from occipitocervical fusion. Correlate with surgical history and these findings can be compared if prior studies become available.
--- NOTE | ~2023-06-09 | CT_ITS ---
EXAMINATION: CT ANGIOGRAM OF THE CHEST WITH AND WITHOUT CONTRAST (CT PULMONARY ANGIOGRAM FOR PE) CLINICAL INFORMATION: Reason for Exam sob ? pe vs aspiration hypoxia sudden COMPARISON: 04/15/2023 TECHNIQUE: Prior to contrast administration, noncontrast localization images were obtained. Subsequently, multidetector volumetric imaging was performed from the thoracic inlet to below the diaphragms following the administration of 65 mL Omnipaque 350 intravenous contrast. No contrast reaction reported Sagittal, coronal, and MIP oblique sagittal reformatted images were obtained on the CT workstation, uploaded to PACS, and reviewed. This CT examination was performed using dose optimization techniques as appropriate, variously including the following: *Automated exposure control *Adjustment of mA and/or kV according to patient size (this includes techniques or standardized protocols for targeted exams where dose is matched to indication/reason for exam; i.e. extremities or head) *Use of iterative reconstruction technique Total exam dose-length product 453 mGy-cm FINDINGS: QUALITY OF STUDY/CONTRAST BOLUS: Suboptimal. PULMONARY ARTERIES: No central pulmonary emboli. THORACIC AORTA: No aneurysm. LUNG: Low lung volumes. Right middle lobe and right lower lobe consolidation with air bronchograms. There is a large elongated/tubular filling defect in trachea extending into the left mainstem bronchus. PLEURA: No pleural effusion or pneumothorax. MEDIASTINUM: Elevated right hemidiaphragm. Great vessels are of normal caliber. Heart size is normal. No pericardial effusion. No axillary, hilar or mediastinal lymphadenopathy. No evidence of septal bowing or right heart strain. CORONARY ARTERY CALCIFICATION: None visualized on this study. CHEST WALL: No acute abnormality. OSSEOUS STRUCTURES: No destructive bone lesions. UPPER ABDOMEN: Hepatic steatosis. No reflux of contrast into the hepatic veins to suggest elevated right heart pressures. CT/CT angio chest PE protocol IMPRESSION: Suboptimal contrast bolus timing. No central pulmonary embolus. There is a large elongated/tubular filling defect in trachea extending into the left mainstem bronchus. Right middle lobe and right lower lobe consolidation with air bronchograms. Pneumonia may be considered. Marked elevation of the right hemidiaphragm approximately 10 cm above the left hemidiaphragm with significant corresponding volume loss in the right hemithorax. Hepatic steatosis. VTE: indeterminate
--- NOTE | ~2023-06-09 | XR_ITS ---
EXAMINATION: XR CHEST CLINICAL INFORMATION: Shortness of breath. COMPARISON: 05/07/2023 and 05/03/2023 TECHNIQUE: Frontal view of the chest was obtained. FINDINGS: Low lung volumes. Right hemidiaphragm remains elevated. There is increasing right basilar atelectasis. Possible small right pleural effusion. Cardiac silhouette is unchanged. XR/XR chest 1V IMPRESSION: Increasing right basilar atelectasis. Possible small right pleural effusion.
--- NOTE | 2023-06-09 08:54 | ED_ITS ---
HPI - General Adult General Chief complaint: Seizure Stated complaint: MULTI SZ THIS AM,POSTICTAL FROM SNF PER EMS Time Seen by Provider: 06/09/23 08:51 Source: patient Mode of arrival: ambulatory Limitations: other (poor historian ) History of Present Illness HPI narrative: 37 year old male hx off TIA w/ right sided paralysis, traumatic brachial plexopathy, acute hypoxic respiratory faliure presents w/ sob, multiple seizures this morning unclear how many 1 partial seizure witnessed by EMS. EMS repots that patient is hypoxic in low 80s on room air and he doesn't use oxygen at home. Patient only stating i feel exhaused . Per EMS last received his medications this morning. Patient poor historian . Reports recent illness a few weeks ago uri/pna. Denies cp, nausea, vomiting, abd pain, fevers, chills, Related Data Home Medications Medication Instructions Recorded Confirmed acetaminophen 325 mg tablet 650 mg PO Q6H PRN Fever Or Pain 04/15/23 06/09/23 albuterol sulfate 90 mcg/actuation 2 puff inhalation Q6H PRN Wheezing 04/15/23 06/09/23 aerosol inhaler apixaban 5 mg tablet (Eliquis) 5 mg PO BID 04/15/23 06/09/23 citalopram 10 mg tablet 10 mg PO DAILY 04/15/23 06/09/23 diphenhydramine HCl 25 mg tablet 25 mg PO BEDTIME PRN Sleep 04/15/23 06/09/23 divalproex 500 mg tablet,delayed 500 mg PO BID 04/15/23 06/09/23 release (Depakote) ibuprofen 600 mg tablet 600 mg PO Q6H PRN Pain 04/15/23 06/09/23 multivitamin 1 tab PO DAILY 04/15/23 06/09/23 olanzapine 10 mg tablet 10 mg PO BEDTIME 04/15/23 06/09/23 ondansetron HCl 4 mg tablet 4 mg PO Q8H PRN Nausea And Vomiting 04/15/23 06/09/23 quetiapine 25 mg tablet 25 mg PO DAILY 04/15/23 06/09/23 sennosides 8.6 mg tablet (senna) 8.6 mg PO DAILY PRN Constipation 04/15/23 06/09/23 guaifenesin 100 mg/5 mL oral liquid 300 mg PO Q6H PRN Cough 05/03/23 06/09/23 melatonin 5 mg tablet 5 mg PO BEDTIME 05/03/23 06/09/23 polyvinyl alcohol 1.4 % eye drops 1 drp ophthalmic (eye) Q6H PRN Dry 05/03/23 06/09/23 Eye(S) fluticasone 250 mcg-salmeterol 50 1 inh inhalation BID 06/09/23 06/09/23 mcg/dose blistr powdr for inhalation (Advair Diskus) lorazepam 2 mg/mL injection 2 mg IM DAILY PRN Seizure Activity 06/09/23 06/09/23 solution Previous Rx's Medication Instructions Recorded levetiracetam 1,000 mg tablet 1,000 mg PO BID #60 tabs 04/20/23 Allergies Allergy/AdvReac Type Severity Reaction Status Date / Time amoxicillin Allergy Anaphylaxis Verified 06/07/23 20:24 sertraline [From Zoloft] Allergy Anaphylaxis Verified 06/07/23 20:24 Review of Systems 2 Review of Systems: Constitutional : No Weight loss, No Fever, No Chills, + Fatigue, No Malaise ENT/Mouth : No sore throat, No Rhinorrhea Eyes: No Eye Pain, No Swelling, No Redness Cardiovascular : No Chest Pain, + SOB, No Dyspnea on Exertion, No Orthopnea, No Edema, No Palpitations Respiratory : No Cough, No Sputum, No Wheezing Gastrointestinal : No Nausea, No Vomiting, No Diarrhea, No Constipation, No abdominal Pain, No Hematochezia, No Melena Genitourinary : No Dysuria, No Urinary Frequency, No Hematuria, Musculoskeletal : No joint pain, No Myalgias, No Joint Swelling Skin : No Skin Lesions, No rash Neuro : No Weakness, No Numbness, No Dizziness, No Headache Psych : No Anxiety/Panic, No Depression All other systems reviewed and are negative Yes all other systems are reviewed and are negative [facility] Past Medical History Attestation statement: The following information was validated with the patient. Source: old records reviewed and nursing notes reviewed Medical History Psychogenic nonepileptic seizure Seizure disorder Chronic anticoagulation TBI (traumatic brain injury) Social History Social History Household Members: Other Housing: Assisted Living Facility Do you presently have visiting nurse or other home services: No Alcohol intake: former Patient Tobacco Use Status: Never used Tobacco Smoked in Last 30 Days: No e-Cigarette/Vaping Use: Never Used Use of substances other than those prescribed or required for medical reasons: No Advance Directives: No Advance Directives Information Provided: No service: No Physical Exam ED Vital Signs: Vital Signs - 24 hr 06/09/23 08:56 06/09/23 10:01 06/09/23 11:57 Temperature 98.2 F 98.4 F Pulse Rate 107 H 99 98 Respiratory Rate 13 20 20 Blood Pressure 150/87 H 142/87 H 140/108 H Pulse Oximetry 94 100 98 Oxygen Delivery Method Nasal Cannula Nasal Cannula Nasal Cannula Oxygen Flow Rate 4 3 06/09/23 12:55 06/09/23 13:07 06/09/23 13:12 Temperature Pulse Rate 90 100 104 H Respiratory Rate Blood Pressure 153/92 H 137/99 H 152/98 H Pulse Oximetry Oxygen Delivery Method Oxygen Flow Rate BMI result Body Mass Index 37.3 vss Appearance: Alert.? Oriented X3.? + mild acute distress Head: Normocephalic, atraumatic, no step-offs or deformities Eyes: Pupils equal, round and reactive to light.? CVS: Normal heart rate and rhythm.? Pulses normal.? Respiratory: + moderate respiratory distress.?W/ shallow breathing and diminished breath sounds normal.? Abdomen: Soft and nontender.? Skin: Skin warm and diaphoretic.? Normal skin color.? Normal skin turgor.? Extremities: No lower extremity edema.? No calf ttp. 5/5 strength to bilateral upper and lower extremities Back: No midline tenderness, no C-spine tenderness, full range of motion, no CVA tenderness bilaterally Neuro: Oriented X 3.? No motor deficit.? No sensory deficit. CN 2-12 intact Course Reevaluation(s) Reevaluation #1: Delay in imaging patient w/ psudoseizure on ct table. Time: 16:32 Reevaluation #2: CBC appears to be at baseline. Chmeistry no acute findings requiring intervention. Lactic normal. CPK 934 fluids ordered at this time . Ct head w/ moderate prominence of the lateral 3rd and 4th veentricles w/o commensurate sulcal prominence. Asummetric prominence of the temporal horm of the right lateral ventricle. Post op changes noted. CT w/ PNA and large elongated tubular filling decect in trachia into L main stem discussed w/ my aattending who recommended speaking to shadowgraph scale operator who states no need for emergent bronch. Indeterminate VTE. No need for ICU admission. Patient stable for the Floor. Time: 16:34 Reevaluation #3: TT to Dr. Mckoy for hospital admission. Time: 16:36 Medications Administered Discontinued Medications Generic Name Dose Route Start Last Admin Trade Name Freq PRN Reason Stop Dose Admin Levetiracetam 1,000 mg in 100 mls @ 400 mls/hr 06/09/23 08:53 06/09/23 11:24 Keppra IV 06/09/23 09:07 Infused ONCE ONE Infusion Cefepime HCl 2 gm/ Sodium 50 mls @ 100 mls/hr 06/09/23 09:11 06/09/23 11:54 Chloride IV 06/09/23 09:40 Infused ONCE ONE Infusion Azithromycin 500 mg/ Sodium 250 mls @ 125 mls/hr 06/09/23 09:11 06/09/23 14:08 Chloride IV 06/09/23 11:10 Infused ONCE ONE Infusion Sodium Chloride 3,048 mls @ 3,048 mls/hr 06/09/23 09:15 06/09/23 12:43 Ns 30 ml/kg infuse over 1 hr (3048 ml) 06/09/23 10:14 Infused IV Infusion .Q1H STA Iohexol 65 ml 06/09/23 15:03 06/09/23 15:03 Iohexol 350 Mg/Ml 100 Ml Infus..Btl IV 06/09/23 15:04 65 ml ONCE ONE Administration Lorazepam 1 mg 06/09/23 09:03 06/09/23 09:48 Lorazepam 2 Mg/Ml Vial IVPUSH 06/09/23 09:04 1 mg STAT STA Administration Medical Decision Making Medical Decision Making MDM Narrative: 37-year-old male presents with initial seizures as morning, also noted to be short of breath and hypoxic ongoing x1 day + moderate respiratory distress.?W/ shallow breathing and diminished breath sounds normal.? History and physical exam concerning for epileptic seizure versus psychogenic seizure. Will rule out intracranial pathology. Shortness of breath concerning for possible pulmonary embolism, pneumonia, aspiration pneumonia. Patient is noted to be in mild respiratory distress and is requiring 4 L nasal cannula saturating 94%. Will also rule out viral illness. Plan at this time labs, imaging, urine, seizure percautions, will give ativan to increase seizure threshold. Differential Diagnosis Differential Diagnoses: The differential diagnosis associated with the presentation includes History and physical exam concerning for epileptic seizure versus psychogenic seizure. Will rule out intracranial pathology. Shortness of breath concerning for possible pulmonary embolism, pneumonia, aspiration pneumonia. Patient is noted to be in mild respiratory distress and is requiring 4 L nasal cannula saturating 94%. Will also rule out viral illness. Admission/Observation Consideration of admission/observation: Escalation of care including admission/observation considered Likely Consult Healthcare Provider Management of the patient was discussed with: Photo Mask Pattern Generator (ICU Dr. Penny ) Lab Data MDM Lab Attestation statement: I reviewed the patient's lab results. 06/09/23 11:14 06/09/23 11:14 Labs: Lab Results 06/09/23 06/09/23 06/09/23 Range/Units 10:04 10:39 10:49 WBC (4.8-10.8) X10*3/uL RBC (4.60-5.80) X10*6/uL Hgb (14.0-18.0) g/dl Hct (42.0-52.0) % MCV (80.0-98.0) fL MCH (27.0-33.0) pg MCHC (31.0-36.0) g/dl RDW (11.0-16.0) % Plt Count (160-400) X10*3/uL MPV (9.4-12.4) fL Immature Gran % (Auto) (0.0-0.4) % Neut % (Auto) (45-73) % Lymph % (Auto) (20-40) % Kerr % (Auto) (2-11) % Eos % (Auto) (0-4) % Baso % (Auto) (0-2) % Lymph # (Auto) (1.2-4.9) X10*3/uL Kerr # (Auto) (0.1-1.2) X10*3/uL Eos # (Auto) (0.0-0.4) X10*3/uL Baso # (Auto) (0.0-0.2) X10*3/uL Abs Immat Gran (auto) (0.00-0.03) X10*3/uL Absolute Neuts (auto) (2.0-8.3) x10*3/uL Absolute Nucleated RBC (0.0-0.012) X10*3/uL Nucleated RBC % (auto) (0.0-0.2) /100WBC PT (11.1-13.3) SEC INR (0.9-1.1) D-Dimer High Sensitivty NG/ML VBG pH (7.32-7.43) VBG pCO2 mmHg VBG pO2 mmHg VBG HCO3 (22-26) mmol/L VBG O2 Saturation % VBG Base Excess mmol/L Sodium (135-145) mmol/L Potassium (3.3-5.1) mmol/L Chloride (96-108) mmol/L Carbon Dioxide (22-29) mmol/L Anion Gap (12-20) BUN (9-16) mg/dL Creatinine (0.5-1.4) mg/dL Estim Creat Clear Calc Estimated GFR Random Glucose (60-115) mg/dL Lactic Acid 1.1 (0.5-2.0) mmol/L Calcium (8.4-10.2) mg/dL Magnesium (1.6-2.6) mg/dL Total Bilirubin (0.0-1.0) mg/dL AST (5-37) U/L ALT (0-40) U/L Alkaline Phosphatase (39-117) U/L Total Creatine Kinase (38-174) U/L B-Natriuretic Peptide (<100) pg/mL Total Protein (6.5-8.0) g/dL Albumin (3.5-5.0) g/dL Lipase (8-78) U/L Urine Color Yellow Urine Appearance Clear Urine pH 6.0 (5.0-9.0) Ur Specific [place] 1.020 (1.005-1.025) Urine Protein Negative (Neg-Trace) mg/dL Urine Glucose (UA) Negative (Negative) mg/dL Urine Ketones Negative (Negative) mg/dL Urine Blood Small (1+) H (Negative) Urine Nitrite Negative (Negative) Ur Leukocyte Esterase Negative (Negative) Urine RBC 11-20 H (0-2) /HPF Urine WBC 0-5 (0-5) /HPF Ur Squamous Epith Cells 0-2 (0-2) /HPF Urine Bacteria None Seen (None Seen) Hyaline Casts 0-2 (0-2) /LPF Salicylates (15-30) mg/dL Urine Opiates Screen Not Detected (Not Detect) Urine Fentanyl Screen Not Detected (Not Detect) Acetaminophen (<30) mcg/mL Ur Barbiturates Screen Not Detected (Not Detect) Ur Phencyclidine Scrn Not Detected (Not Detect) Ur Amphetamines Screen Not Detected (Not Detect) U Benzodiazepines Scrn Not Detected (Not Detect) Urine Cocaine Screen Not Detected (Not Detect) U Marijuana (THC) Screen Not Detected (Not Detect) COVID-19 (BERT) Negative (Negative) COVID-19 Clin Com See Note 06/09/23 06/09/23 Range/Units 11:14 11:18 WBC 5.5 (4.8-10.8) X10*3/uL RBC 4.34 L (4.60-5.80) X10*6/uL Hgb 13.1 L (14.0-18.0) g/dl Hct 40.4 L (42.0-52.0) % MCV 93.1 (80.0-98.0) fL MCH 30.2 (27.0-33.0) pg MCHC 32.4 (31.0-36.0) g/dl RDW 12.8 (11.0-16.0) % Plt Count 143 L (160-400) X10*3/uL MPV 9.2 L (9.4-12.4) fL Immature Gran % (Auto) 0.4 (0.0-0.4) % Neut % (Auto) 53.1 (45-73) % Lymph % (Auto) 37.6 (20-40) % Kerr % (Auto) 7.8 (2-11) % Eos % (Auto) 0.9 (0-4) % Baso % (Auto) 0.2 (0-2) % Lymph # (Auto) 2.1 (1.2-4.9) X10*3/uL Kerr # (Auto) 0.4 (0.1-1.2) X10*3/uL Eos # (Auto) 0.1 (0.0-0.4) X10*3/uL Baso # (Auto) 0.0 (0.0-0.2) X10*3/uL Abs Immat Gran (auto) 0.02 (0.00-0.03) X10*3/uL Absolute Neuts (auto) 2.9 (2.0-8.3) x10*3/uL Absolute Nucleated RBC 0.000 (0.0-0.012) X10*3/uL Nucleated RBC % (auto) 0.0 (0.0-0.2) /100WBC PT 12.2 (11.1-13.3) SEC INR 1.0 (0.9-1.1) D-Dimer High Sensitivty < 150 NG/ML VBG pH 7.34 (7.32-7.43) VBG pCO2 66 mmHg VBG pO2 121 mmHg VBG HCO3 36 H (22-26) mmol/L VBG O2 Saturation 100.0 % VBG Base Excess 8.1 mmol/L Sodium 146 H (135-145) mmol/L Potassium 4.2 (3.3-5.1) mmol/L Chloride 105 (96-108) mmol/L Carbon Dioxide 35 H (22-29) mmol/L Anion Gap 10 L (12-20) BUN 9 (9-16) mg/dL Creatinine 0.77 (0.5-1.4) mg/dL Estim Creat Clear Calc 146.8 Estimated GFR > 60 Random Glucose 104 (60-115) mg/dL Lactic Acid (0.5-2.0) mmol/L Calcium 9.0 (8.4-10.2) mg/dL Magnesium 1.8 (1.6-2.6) mg/dL Total Bilirubin 0.3 (0.0-1.0) mg/dL AST 37 (5-37) U/L ALT 47 H (0-40) U/L Alkaline Phosphatase 52 (39-117) U/L Total Creatine Kinase 934 H (38-174) U/L B-Natriuretic Peptide < 10 (<100) pg/mL Total Protein 6.8 (6.5-8.0) g/dL Albumin 3.9 (3.5-5.0) g/dL Lipase 52 (8-78) U/L Urine Color Urine Appearance Urine pH (5.0-9.0) Ur Specific [place] (1.005-1.025) Urine Protein (Neg-Trace) mg/dL Urine Glucose (UA) (Negative) mg/dL Urine Ketones (Negative) mg/dL Urine Blood (Negative) Urine Nitrite (Negative) Ur Leukocyte Esterase (Negative) Urine RBC (0-2) /HPF Urine WBC (0-5) /HPF Ur Squamous Epith Cells (0-2) /HPF Urine Bacteria (None Seen) Hyaline Casts (0-2) /LPF Salicylates < 5.0 L (15-30) mg/dL Urine Opiates Screen (Not Detect) Urine Fentanyl Screen (Not Detect) Acetaminophen < 3 (<30) mcg/mL Ur Barbiturates Screen (Not Detect) Ur Phencyclidine Scrn (Not Detect) Ur Amphetamines Screen (Not Detect) U Benzodiazepines Scrn (Not Detect) Urine Cocaine Screen (Not Detect) U Marijuana (THC) Screen (Not Detect) COVID-19 (BERT) (Negative) COVID-19 Clin Com Independent Interpretation I performed an independent interpretation of an: Plain X-Ray ( XR/XR chest 1V IMPRESSION: Increasing right basilar atelectasis. Possible small right pleural effusion.) and CT Scan (CT/CT head/brain wo IV con IMPRESSION: 1. There are no acute bleeds or territorial infarcts. No masses are demonstrated. 2. There is moderate prominence of the lateral, 3rd and 4th ventricles without commensurate sulcal prominence. There is asymmetric prominence of the temporal horn of the right l) Interpretation: CT/CT angio chest PE protocol IMPRESSION: Suboptimal contrast bolus timing. No central pulmonary embolus. There is a large elongated/tubular filling defect in trachea extending into the left mainstem bronchus. Right middle lobe and right lower lobe consolidation with air bronchograms. Pneumonia may be considered. Marked elevation of the right hemidiaphragm approximately 10 cm above the left hemidiaphragm with significant corresponding volume loss in the right hemithorax. Hepatic steatosis. VTE: indeterminate Critical Care Time Critical Care Time Critical Care Time: Yes Total Critical Care Time: 45 Attestation: I attest to this time spent taking care of the patient, obtaining history, physical, reviewing labs, imaging, speaking to my attending, speaking to specialist. Discharge Plan Discharge Clinical Impression: Aspiration pneumonia, Epileptic seizure Patient Disposition: Admitted As Inpatient
[2023-06-09] MEDS: LORazepam 2 MG/ML VIAL 1 MG IVPUSH (09:48)
[2023-06-09] MEDS: levETIRAcetam in NaCl (iso-os) 1,000 MG/100 ML PIGGYBACK 400 MG IV (09:52)
[2023-06-09 10:10] LABS: Appearance Urine Clear; Color Urine Yellow; Glucose Urine UA Negative (Negative); Leukocyte Esterase Urine Negative (Negative); Nitrite Urine Negative (Negative); UMIC TRIGGER UACC YES; Urine Blood Small (1+) (Negative); Urine Ketones Negative (Negative); Urine Protein Negative (Neg-Trace)
[2023-06-09 10:12] LABS: Bacteria Urine None Seen (None Seen); Hyaline Casts Urine 0-2 /LPF (0-2); Squamous Epithelial Cell Urine 0-2 /HPF (0-2); WBC Urine 0-5 /HPF (0-5)
--- NOTE | 2023-06-09 10:20 | PC.NURSE ---
Multiple attempts by multiple providers/phlebotomy unsuccessful at this time to obtain bloodwork.
[2023-06-09 10:57] LABS: Lactic Acid 1.1 mmol/L (0.5-2.0)
[2023-06-09] MEDS: cefEPime HCl 2 GM in 0.9 % Sodium Chloride 50 ML IV (10:58)
[2023-06-09 11:08] LABS: COVID-19 Test Negative (Negative); IDNOW Serial# BCCEAD1C
[2023-06-09 11:18] LABS: MANUAL DIFF FLAG NO
[2023-06-09 11:23] LABS: Venous Blood Gas Refer to POC result
[2023-06-09 11:24] LABS: VBG Base Excess 8.1 mmol/L; VBG HCO3 36 mmol/L (22-26); VBG pCO2 66 mmHg; VBG pH 7.34 (7.32-7.43); VBG pO2 121 mmHg
[2023-06-09 11:29] LABS: Basophils Percent Auto 0.2 % (0-2); Eosinophils Absolute Auto 0.1 X10*3/uL (0.0-0.4); Eosinophils Percent Auto 0.9 % (0-4); Hematocrit 40.4 % (42.0-52.0); Hemoglobin 13.1 g/dl (14.0-18.0); Imm Gran Abs Auto 0.02 X10*3/uL (0.00-0.03); Imm Gran Pct Auto 0.4 % (0.0-0.4); Lymphocytes Absolute Auto 2.1 X10*3/uL (1.2-4.9); Lymphocytes Percent Auto 37.6 % (20-40); Mean Corpuscular HGB Conc 32.4 g/dl (31.0-36.0); Mean Corpuscular Hemoglobin 30.2 pg (27.0-33.0); Mean Corpuscular Volume 93.1 fL (80.0-98.0); Mean Platelet Volume 9.2 fL (9.4-12.4); Monocytes Absolute Auto 0.4 X10*3/uL (0.1-1.2); Monocytes Percent Auto 7.8 % (2-11); Neutrophils Absolute Auto 2.9 x10*3/uL (2.0-8.3); Neutrophils Percent Auto 53.1 % (45-73); Platelet Count 143 X10*3/uL (160-400); Prothrombin Time 12.2 SEC (11.1-13.3); Red Blood Count 4.34 X10*6/uL (4.60-5.80); Red Cell Distribution Width 12.8 % (11.0-16.0); White Blood Count 5.5 X10*3/uL (4.8-10.8)
--- NOTE | 2023-06-09 11:30 | PC.NURSE ---
at 8:50am patient with seizure activity, provider aware with order to give 2mg ativan, provider into room stated to hold 2mg dose at this time. 1mg dose given per order, called pharmacy regarding 1mg waste. Manuel stating to waste with witness.
[2023-06-09 11:32] LABS: D Dimer High Sensitivity < 150 NG/ML
[2023-06-09 11:38] LABS: Acetaminophen LAB < 3 mcg/mL (<30); Salicylate < 5.0 mg/dL (15-30)
[2023-06-09 11:40] LABS: Alanine Aminotransferase 47 U/L (0-40); Albumin Level 3.9 g/dL (3.5-5.0); Alkaline Phosphatase 52 U/L (39-117); Anion Gap 10 (12-20); Aspartate Amino Transferase 37 U/L (5-37); Bilirubin Total 0.3 mg/dL (0.0-1.0); Blood Urea Nitrogen 9 mg/dL (9-16); Carbon Dioxide 35 mmol/L (22-29); Chloride 105 mmol/L (96-108); Creatinine Clr Calc Pharmacy 146.8; Estimated Glomerular Filt Rate > 60; Glucose Random 104 mg/dL (60-115); Lipase 52 U/L (8-78); Magnesium 1.8 mg/dL (1.6-2.6); Potassium 4.2 mmol/L (3.3-5.1); Sodium 146 mmol/L (135-145); Total Protein 6.8 g/dL (6.5-8.0)
[2023-06-09 11:44] LABS: B Type Natriuretic Peptide < 10 pg/mL (<100)
[2023-06-09] MEDS: Azithromycin 500 MG in 0.9 % Sodium Chloride 250 ML 125 MG IV (11:48)
--- NOTE | 2023-06-09 12:18 | PHA.MEDREC ---
Pharmacy Consult ? Medication Reconciliation Pharmacy has completed the medication reconciliation. Patient with list from [facility]
[2023-06-09 14:41] LABS: Amphetamine Screen Urine Not Detected (Not Detect); Barbiturates, Urine Not Detected (Not Detect); Benzodiazepines Screen Urine Not Detected (Not Detect); Cannabinoid Screen Urine Not Detected (Not Detect); Cocaine Screen Urine Not Detected (Not Detect); Fentanyl, urine Not Detected (Not Detect); Opiate Screen Urine Not Detected (Not Detect); Phencyclidine Screen Urine Not Detected (Not Detect)
[2023-06-09] MEDS: iohexoL 350 MG/ML 100 ML INFUS..BTL 65 ML IV (15:03)
--- NOTE | 2023-06-09 18:30 | PM.IMHP ---
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 Per ED, partial seizures witnessed by ED; per pt, generalized shaking but further corroborative history not availabe at this time. Noted by EMS to be hypoxic in the low 80s. Pt poor historian but does endorse coubgh. No fever. No chest pain. Currently awake, alert, oriented, talking. Found to have RML/RLL PNA on CTA. Also a large tubular filling defect in the trachea extending in to the L mainstem bronchus. CPK 934 Na 146 SaO2 mid 90s on 3L O2 Review of Systems Review of Systems: Yes all other systems are reviewed and are negative [facility] Medical History Psychogenic nonepileptic seizure Seizure disorder Chronic anticoagulation TBI (traumatic brain injury) Social History Household Members: Other Housing: Assisted Living Facility Do you presently have visiting nurse or other home services: No Alcohol intake: former Patient Tobacco Use Status: Never used Tobacco Smoked in Last 30 Days: No e-Cigarette/Vaping Use: Never Used Use of substances other than those prescribed or required for medical reasons: No Advance Directives: No Advance Directives Information Provided: No service: No Meds Allergies Allergy/AdvReac Type Severity Reaction Status Date / Time amoxicillin Allergy Anaphylaxis Verified 06/07/23 20:24 sertraline [From Zoloft] Allergy Anaphylaxis Verified 06/07/23 20:24 Active Medications: Current Medications Acetaminophen (Acetaminophen 325 Mg Tablet) 650 mg PO Q6H PRN PRN Reason: Fever Or Pain Albuterol Sulfate (Albuterol Sulfate 90 Mcg 8 Gm Inhaler) 2 puff INHALE Q6H PRN PRN Reason: Wheezing Apixaban (Apixaban 5 Mg Tablet) 5 mg PO BID LG Diphenhydramine HCl (Diphenhydramine Hcl 25 Mg Capsule) 25 mg PO BEDTIME PRN PRN Reason: Sleep Divalproex Sodium (Divalproex Sodium 500 Mg Tablet.Dr) 500 mg PO BID LG Guaifenesin (Guaifenesin 100 Mg/5 Ml Liquid) ml PO Q6H PRN PRN Reason: Cough Levetiracetam (Levetiracetam 1,000 Mg Tablet) 1,000 mg PO BID LG Lorazepam (Lorazepam 2 Mg/Ml Vial) 2 mg IM DAILY PRN PRN Reason: Seizure Activity Multivitamins/Vitamin C (Multivitamin Tablet) 1 tab PO DAILY LG Non-Formulary Medication (Fluticasone Propion-Salmeterol [Advair Diskus]) 1 inhalation INHALE BID LG Non-Formulary Medication (Citalopram) 10 mg PO DAILY LG Non-Formulary Medication (Melatonin) 5 mg PO BEDTIME LG Non-Formulary Medication (Polyvinyl Alcohol) 1 drop EYE-BOTH Q6H PRN PRN Reason: Dry Eye(S) Olanzapine (Olanzapine 10 Mg Tablet) 10 mg PO BEDTIME LG Quetiapine Fumarate (Quetiapine Fumarate 25 Mg Tablet) 25 mg PO DAILY LG Senna (Sennosides 8.6 Mg Tablet) 8.6 mg PO DAILY PRN PRN Reason: Constipation Home Medications Medication Instructions Recorded Confirmed Last Taken Type acetaminophen 325 mg tablet 650 mg PO Q6H PRN Fever Or Pain 04/15/23 06/09/23 Unknown History albuterol sulfate 90 mcg/actuation 2 puff inhalation Q6H PRN Wheezing 04/15/23 06/09/23 Unknown History aerosol inhaler apixaban 5 mg tablet (Eliquis) 5 mg PO BID 04/15/23 06/09/23 Unknown History citalopram 10 mg tablet 10 mg PO DAILY 04/15/23 06/09/23 Unknown History diphenhydramine HCl 25 mg tablet 25 mg PO BEDTIME PRN Sleep 04/15/23 06/09/23 Unknown History divalproex 500 mg tablet,delayed 500 mg PO BID 04/15/23 06/09/23 Unknown History release (Depakote) ibuprofen 600 mg tablet 600 mg PO Q6H PRN Pain 04/15/23 06/09/23 Unknown History multivitamin 1 tab PO DAILY 04/15/23 06/09/23 Unknown History olanzapine 10 mg tablet 10 mg PO BEDTIME 04/15/23 06/09/23 Unknown History ondansetron HCl 4 mg tablet 4 mg PO Q8H PRN Nausea And Vomiting 04/15/23 06/09/23 Unknown History quetiapine 25 mg tablet 25 mg PO DAILY 04/15/23 06/09/23 Unknown History sennosides 8.6 mg tablet (senna) 8.6 mg PO DAILY PRN Constipation 04/15/23 06/09/23 Unknown History guaifenesin 100 mg/5 mL oral liquid 300 mg PO Q6H PRN Cough 05/03/23 06/09/23 Unknown History melatonin 5 mg tablet 5 mg PO BEDTIME 05/03/23 06/09/23 Unknown History polyvinyl alcohol 1.4 % eye drops 1 drp ophthalmic (eye) Q6H PRN Dry 05/03/23 06/09/23 Unknown History Eye(S) fluticasone 250 mcg-salmeterol 50 1 inh inhalation BID 06/09/23 06/09/23 Unknown History mcg/dose blistr powdr for inhalation (Advair Diskus) lorazepam 2 mg/mL injection 2 mg IM DAILY PRN Seizure Activity 06/09/23 06/09/23 Unknown History solution Physical Exam Vital Signs and Narrative: Vital Signs: Last Vital Signs Temp 98.4 F 06/09/23 11:57 Pulse 104 H 06/09/23 13:12 Resp 20 06/09/23 11:57 BP 152/98 H 06/09/23 13:12 Pulse Ox 98 06/09/23 11:57 O2 Del Method Nasal Cannula 06/09/23 11:57 O2 Flow Rate 3 06/09/23 11:57 Oxygen Flow Rate 4 06/09/23 08:56 BMI result Body Mass Index 37.3 Gen: in no acute distress HEENT: sclera anicteric, moist mucus membranes Neck: supple Lungs: clear to auscultation bilaterally Heart: regular rate and rhythm, no murmurs Abd: soft, non-tender, non-distended Ext: no edema Skin: warm/well-perfused Neuro: alert and oriented to person/place/year/month but not date, chronic RUE weakness Psych: appropriate affect Results Labs 06/09/23 11:14 06/09/23 11:14 Labs: Laboratory Results - last 24 hr 06/09/23 06/09/23 06/09/23 10:04 10:39 10:49 MCV MCH MCHC RDW Plt Count MPV Immature Gran % (Auto) Neut % (Auto) Lymph % (Auto) [place] % (Auto) Eos % (Auto) Baso % (Auto) Lymph # (Auto) [place] # (Auto) Eos # (Auto) Baso # (Auto) Abs Immat Gran (auto) Absolute Neuts (auto) Absolute Nucleated RBC Nucleated RBC % (auto) PT INR D-Dimer High Sensitivty VBG pH VBG pCO2 VBG pO2 VBG HCO3 VBG O2 Saturation VBG Base Excess Anion Gap Estim Creat Clear Calc Estimated GFR Random Glucose Lactic Acid 1.1 Calcium Magnesium Total Bilirubin AST ALT Alkaline Phosphatase Total Creatine Kinase B-Natriuretic Peptide Total Protein Albumin Lipase Urine Color Yellow Urine Appearance Clear Urine pH 6.0 Ur Specific [place] 1.020 Urine Protein Negative Urine Glucose (UA) Negative Urine Ketones Negative Urine Blood Small (1+) H Urine Nitrite Negative Ur Leukocyte Esterase Negative Urine RBC 11-20 H Urine WBC 0-5 Ur Squamous Epith Cells 0-2 Urine Bacteria None Seen Hyaline Casts 0-2 Salicylates Urine Opiates Screen Not Detected Urine Fentanyl Screen Not Detected Acetaminophen Ur Barbiturates Screen Not Detected Ur Phencyclidine Scrn Not Detected Ur Amphetamines Screen Not Detected U Benzodiazepines Scrn Not Detected Urine Cocaine Screen Not Detected U Marijuana (THC) Screen Not Detected COVID-19 ([facility]ERT) Negative COVID-19 Clin Com See Note 06/09/23 06/09/23 11:14 11:18 MCV 93.1 MCH 30.2 MCHC 32.4 RDW 12.8 Plt Count 143 L MPV 9.2 L Immature Gran % (Auto) 0.4 Neut % (Auto) 53.1 Lymph % (Auto) 37.6 [place] % (Auto) 7.8 Eos % (Auto) 0.9 Baso % (Auto) 0.2 Lymph # (Auto) 2.1 [place] # (Auto) 0.4 Eos # (Auto) 0.1 Baso # (Auto) 0.0 Abs Immat Gran (auto) 0.02 Absolute Neuts (auto) 2.9 Absolute Nucleated RBC 0.000 Nucleated RBC % (auto) 0.0 PT 12.2 INR 1.0 D-Dimer High Sensitivty < 150 VBG pH 7.34 VBG pCO2 66 VBG pO2 121 VBG HCO3 36 H VBG O2 Saturation 100.0 VBG Base Excess 8.1 Anion Gap 10 L Estim Creat Clear Calc 146.8 Estimated GFR > 60 Random Glucose 104 Lactic Acid Calcium 9.0 Magnesium 1.8 Total Bilirubin 0.3 AST 37 ALT 47 H Alkaline Phosphatase 52 Total Creatine Kinase 934 H B-Natriuretic Peptide < 10 Total Protein 6.8 Albumin 3.9 Lipase 52 Urine Color Urine Appearance Urine pH Ur Specific [place] Urine Protein Urine Glucose (UA) Urine Ketones Urine Blood Urine Nitrite Ur Leukocyte Esterase Urine RBC Urine WBC Ur Squamous Epith Cells Urine Bacteria Hyaline Casts Salicylates < 5.0 L Urine Opiates Screen Urine Fentanyl Screen Acetaminophen < 3 Ur Barbiturates Screen Ur Phencyclidine Scrn Ur Amphetamines Screen U Benzodiazepines Scrn Urine Cocaine Screen U Marijuana (THC) Screen COVID-19 ([facility]ERT) COVID-19 Clin Com Imaging Radiologist's Impressions: Impressions Chest X-Ray 06/09/23 09:05 IMPRESSION: Increasing right basilar atelectasis. Possible small right pleural effusion. Chest CTA 06/09/23 15:37 IMPRESSION: Suboptimal contrast bolus timing. No central pulmonary embolus. There is a large elongated/tubular filling defect in trachea extending into the left mainstem bronchus. Right middle lobe and right lower lobe consolidation with air bronchograms. Pneumonia may be considered. Marked elevation of the right hemidiaphragm approximately 10 cm above the left hemidiaphragm with significant corresponding volume loss in the right hemithorax. Hepatic steatosis. VTE: indeterminate Head CT 06/09/23 15:37 IMPRESSION: 1. There are no acute bleeds or territorial infarcts. No masses are demonstrated. 2. There is moderate prominence of the lateral, 3rd and 4th ventricles without commensurate sulcal prominence. There is asymmetric prominence of the temporal horn of the right lateral ventricle. There are postoperative changes from occipitocervical fusion. Correlate with surgical history and these findings can be compared if prior studies become available. 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 Pulm consult. nebs. seizure disorder- ?breakthrough seizures - continue Keppra + Depakote, prn lorazepam, consult Neurology mild rhabdo - IV NS, repeat in AM, essentially no risk of renal injury at this level hyperNa, mild - encourage free water intake, repeat Na level in M anticoagulation, chronic - on Eliquis, unclear indication, will reach out to Dr Mcmillan at [facility] in AM chronic lung disease - Advair, prn albuterol mood disorder - olanzapine, quetiapine, citalopram, Depakote VTE ppx - apixaban [clarify indication] code - full dispo - eventual return to LTC I anticipate that the patient will stay at least 2 midnights as an inpatient in the hospital due to the above reasons. It is neither reasonable nor safe to care for them in a less acute setting. Quality Stroke Does the patient have a stroke diagnosis?: No VTE Prior VTE?: No VTE Risk Level:: Medical - moderate - high VTE Device Contraindication: N/A - Device Ordered VTE Drug Contraindication: N/A - Med Ordered
[2023-06-09] MEDS: 0.9 % Sodium Chloride 1,000 ML 125 ML IVCONT (19:05)
--- NOTE | 2023-06-09 19:09 | PC.NURSE ---
Patient removed telemetry, bp cuff, and 02 monitoring. remains on camera monitoring for safety.
[2023-06-09 19:12] LABS: Procalcitonin 0.03 ng/mL
[2023-06-09] MEDS: cefTRIAXone sodium 1 GM in 0.9 % Sodium Chloride 50 ML IV (19:22)
[2023-06-09] MEDS: Albuterol/Iprat 2.5/0.5MG 3 ML AMPUL.NEB INHALE (19:40)
[2023-06-09] MEDS: Divalproex Sodium 500 MG TABLET.DR PO (22:47)
[2023-06-09] MEDS: Melatonin 3 MG TABLET 6 MG PO (22:47)
[2023-06-09] MEDS: levETIRAcetam 1,000 MG TABLET 1000 MG PO (22:47)
[2023-06-09] MEDS: OLANZapine 10 MG TABLET PO (22:48)
[2023-06-09] MEDS: Apixaban 5 MG TABLET PO (22:48)
[2023-06-10] VITALS (12 sets, daily range): BP systolic 103–146; BP diastolic 67–82; PULSE 88–108; RESP 16–20; TEMP 36.1–36.7; O2SAT 92–96
--- NOTE | 2023-06-10 | EEG_ITS ---
This is a 16-channel EEG with an EKG lead. Patient is reported alert and awake during the tracing. Background EEG rhythm is about 10 hertz 5 to 20 microvolt posteriorly, lower amplitude fast anteriorly. Photic stimulation does not produce any significant driving. Hyperventilation is not performed. Cardiac lead does not reveal any significant abnormality. No sharp wave spikes or paroxysmal tendency noted. IMPRESSION: Unremarkable EEG. MD NATANAEL Chapa/JOSE / [id number]
[2023-06-10] MEDS: Doxycycline Hyclate 100 MG in 0.9 % Sodium Chloride 250 ML 166.67 MG IV ×2 (00:19→12:18)
[2023-06-10] MEDS: 0.9 % Sodium Chloride 1,000 ML 125 ML IVCONT ×3 (05:47→23:09)
[2023-06-10] MEDS: Albuterol/Iprat 2.5/0.5MG 3 ML AMPUL.NEB INHALE ×4 (07:24→19:06)
[2023-06-10 08:21] LABS: Hematocrit 40.8 % (42.0-52.0); Mean Corpuscular HGB Conc 31.9 g/dl (31.0-36.0); Mean Corpuscular Hemoglobin 30.1 pg (27.0-33.0); Mean Corpuscular Volume 94.4 fL (80.0-98.0); Mean Platelet Volume 9.4 fL (9.4-12.4); Platelet Count 154 X10*3/uL (160-400); Red Blood Count 4.32 X10*6/uL (4.60-5.80); Red Cell Distribution Width 12.8 % (11.0-16.0)
[2023-06-10 08:34] LABS: Anion Gap 11 (12-20); Blood Urea Nitrogen 8 mg/dL (9-16); Calcium 8.9 mg/dL (8.4-10.2); Carbon Dioxide 35 mmol/L (22-29); Chloride 103 mmol/L (96-108); Creatinine Clr Calc Pharmacy 148.7; Estimated Glomerular Filt Rate > 60; Glucose Random 86 mg/dL (60-115); Potassium 4.4 mmol/L (3.3-5.1); Sodium 145 mmol/L (135-145)
[2023-06-10] MEDS: Apixaban 5 MG TABLET PO ×2 (09:08→21:01)
[2023-06-10] MEDS: Multivitamin TABLET 1 TAB PO (09:08)
[2023-06-10] MEDS: Escitalopram Oxalate 5 MG TABLET PO (09:08)
[2023-06-10] MEDS: Divalproex Sodium 500 MG TABLET.DR PO ×2 (09:08→21:01)
[2023-06-10] MEDS: QUEtiapine Fumarate 25 MG TABLET PO (09:08)
[2023-06-10] MEDS: levETIRAcetam 1,000 MG TABLET 1000 MG PO ×2 (09:12→21:06)
--- NOTE | 2023-06-10 09:44 | PC.NURSE ---
This RN responded to CHART WRITER - upon arrival MD cleared scene
[2023-06-10] MEDS: LORazepam 2 MG/ML VIAL IM (09:50)
--- NOTE | 2023-06-10 10:00 | PM.CNPUL ---
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 Per ED, partial seizures witnessed by ED; per pt, generalized shaking but further corroborative history not availabe at this time. Noted by EMS to be hypoxic in the low 80s. Pt poor historian but does endorse coubgh. No fever. No chest pain. Currently awake, alert, oriented, talking. Found to have RML/RLL PNA on CTA. Also a large tubular filling defect in the trachea extending in to the L mainstem bronchus. Right did personally review the images. It appears that this defect has to do more with the posterior tracheal is muscle keny into the airway resulting in that appearance in the coronal views. Therefore, this does not appear to be a actual foreign body in my pain. Will treat him for a lower respiratory infection at this time. Review of Systems Review of Systems: Yes Unobtainable due to mental condition [facility] Past Medical History Medical History Psychogenic nonepileptic seizure Seizure disorder Chronic anticoagulation TBI (traumatic brain injury) Social History Social History Household Members: Other Housing: Assisted Do you presently have visiting nurse or other home services: No Alcohol intake: former Patient Tobacco Use Status: Never used Tobacco Smoked in Last 30 Days: No e-Cigarette/Vaping Use: Never Used Use of substances other than those prescribed or required for medical reasons: No Have you been hit, kicked, punched, or otherwise hurt by someone within the past year? If so, by whom?: No Do you feel safe in your current relationship?: No Current Relationship Is there a partner from a previous relationship who is making you feel unsafe now?: No Are you made to feel afraid or neglected: No Advance Directives: No Advance Directives Information Provided: No Do you have thoughts of harming others: None Do you have a plan to hurt others: No Plan Recently lost weight without trying: Unsure Nutrition Risks: No Nutritional Risk service: No Meds Allergies Allergy/AdvReac Type Severity Reaction Status Date / Time amoxicillin Allergy Anaphylaxis Verified 06/07/23 20:24 sertraline [From Zoloft] Allergy Anaphylaxis Verified 06/07/23 20:24 Active Medications: Current Medications Acetaminophen (Acetaminophen 325 Mg Tablet) 650 mg PO Q6H PRN PRN Reason: Fever Or Pain Albuterol Sulfate (Albuterol Sulfate 90 Mcg 8 Gm Inhaler) 2 puff INHALE Q6H PRN PRN Reason: Wheezing Albuterol/Ipratropium (Albuterol/Iprat 2.5/0.5mg 3 Ml Ampul.Neb) 3 ml INHALE RQ4H WHILE AWAKE [facility] Last Admin: 06/10/23 07:24 Dose: 3 ml Apixaban (Apixaban 5 Mg Tablet) 5 mg PO BID [facility] Last Admin: 06/10/23 09:08 Dose: 5 mg Artificial Tears (Artificial Tears 15 Ml Drops) 1 drop EYE-BOTH Q6H PRN PRN Reason: Dry Eye(S) Diphenhydramine HCl (Diphenhydramine Hcl 25 Mg Capsule) 25 mg PO BEDTIME PRN PRN Reason: Sleep Divalproex Sodium (Divalproex Sodium 500 Mg Tablet.Dr) 500 mg PO BID [facility] Last Admin: 06/10/23 09:08 Dose: 500 mg Escitalopram Oxalate (Escitalopram Oxalate 5 Mg Tablet) 5 mg PO DAILY [facility] Last Admin: 06/10/23 09:08 Dose: 5 mg Fluticasone/Vilanterol (Fluticasone/Vilanterol 100/25 Blst.W.Dev) 1 puff INHALE RDAILY [facility] Last Admin: 06/10/23 07:24 Dose: Not Given Guaifenesin (Guaifenesin 100 Mg/5 Ml Liquid) 15 ml PO Q6H PRN PRN Reason: Cough Sodium Chloride (Ns) 1,000 mls @ 125 mls/hr IVCONT .Q8H [facility] Last Admin: 06/10/23 05:47 Dose: 125 mls/hr Ceftriaxone Sodium 1 gm/ (Sodium Chloride) 50 mls @ 100 mls/hr IV Q24H [facility] Last Infusion: 06/09/23 20:14 Dose: Infused Doxycycline Hyclate 100 mg/ (Sodium Chloride) 250 mls @ 166.67 mls/hr IV Q12H [facility] Last Infusion: 06/10/23 04:24 Dose: Infused Levetiracetam (Levetiracetam 1,000 Mg Tablet) 1,000 mg PO BID [facility] Last Admin: 06/10/23 09:12 Dose: 1,000 mg Lorazepam (Lorazepam 2 Mg/Ml Vial) 2 mg IM DAILY PRN PRN Reason: Seizure Activity Last Admin: 06/10/23 09:50 Dose: 2 mg Melatonin (Melatonin 3 Mg Tablet) 6 mg PO BEDTIME [facility] Last Admin: 06/09/23 22:47 Dose: 6 mg Multivitamins/Vitamin C (Multivitamin Tablet) 1 tab PO DAILY [facility] Last Admin: 06/10/23 09:08 Dose: 1 tab Olanzapine (Olanzapine 10 Mg Tablet) 10 mg PO BEDTIME [facility] Last Admin: 06/09/23 22:48 Dose: 10 mg Ondansetron HCl (Ondansetron Hcl 4 Mg/2 Ml Vial) 4 mg IVPUSH Q4H PRN PRN Reason: nause/avomting Quetiapine Fumarate (Quetiapine Fumarate 25 Mg Tablet) 25 mg PO DAILY [facility] Last Admin: 06/10/23 09:08 Dose: 25 mg Senna (Sennosides 8.6 Mg Tablet) 8.6 mg PO DAILY PRN PRN Reason: Constipation Sodium Chloride (0.9 % Sodium Chloride Flush 3 Ml Syringe) 3 ml IVFLUSH QSHIFT [facility] Last Admin: 06/10/23 09:08 Dose: Not Given Home Medications Medication Instructions Recorded Confirmed Last Taken Type acetaminophen 325 mg tablet 650 mg PO Q6H PRN Fever Or Pain 04/15/23 06/09/23 Unknown History albuterol sulfate 90 mcg/actuation 2 puff inhalation Q6H PRN Wheezing 04/15/23 06/09/23 Unknown History aerosol inhaler apixaban 5 mg tablet (Eliquis) 5 mg PO BID 04/15/23 06/09/23 Unknown History citalopram 10 mg tablet 10 mg PO DAILY 04/15/23 06/09/23 Unknown History diphenhydramine HCl 25 mg tablet 25 mg PO BEDTIME PRN Sleep 04/15/23 06/09/23 Unknown History divalproex 500 mg tablet,delayed 500 mg PO BID 04/15/23 06/09/23 Unknown History release (Depakote) ibuprofen 600 mg tablet 600 mg PO Q6H PRN Pain 04/15/23 06/09/23 Unknown History multivitamin 1 tab PO DAILY 04/15/23 06/09/23 Unknown History olanzapine 10 mg tablet 10 mg PO BEDTIME 04/15/23 06/09/23 Unknown History ondansetron HCl 4 mg tablet 4 mg PO Q8H PRN Nausea And Vomiting 04/15/23 06/09/23 Unknown History quetiapine 25 mg tablet 25 mg PO DAILY 04/15/23 06/09/23 Unknown History sennosides 8.6 mg tablet (senna) 8.6 mg PO DAILY PRN Constipation 04/15/23 06/09/23 Unknown History guaifenesin 100 mg/5 mL oral liquid 300 mg PO Q6H PRN Cough 05/03/23 06/09/23 Unknown History melatonin 5 mg tablet 5 mg PO BEDTIME 05/03/23 06/09/23 Unknown History polyvinyl alcohol 1.4 % eye drops 1 drp ophthalmic (eye) Q6H PRN Dry 05/03/23 06/09/23 Unknown History Eye(S) fluticasone 250 mcg-salmeterol 50 1 inh inhalation BID 06/09/23 06/09/23 Unknown History mcg/dose blistr powdr for inhalation (Advair Diskus) lorazepam 2 mg/mL injection 2 mg IM DAILY PRN Seizure Activity 06/09/23 06/09/23 Unknown History solution Physical Exam Vital Signs: Vital Signs: Last Vital Signs Temp 97.0 F 06/10/23 07:54 Pulse 90 06/10/23 07:54 Resp 20 06/10/23 07:54 BP 134/71 06/10/23 07:54 Pulse Ox 96 06/10/23 07:54 O2 Del Method Nasal Cannula 06/10/23 07:54 O2 Flow Rate 2 06/10/23 07:54 Oxygen Flow Rate 4 06/09/23 08:56 BMI result Body Mass Index 37.3 Appearance: Alert. Oriented X3. No acute distress. Eyes: PERRLA, No Nystagmus ENT: Pharynx normal. Oral Mucosa moist Neck: Normal inspection. Neck supple. CVS: Normal heart rate and rhythm. Pulses normal. no murmur no rub Respiratory: No respiratory distress. Equal air entry bilateral, no wheezing/rales/rhonchi Abdomen: Soft and nontender. Bowel sounds are present, Skin: Skin warm and dry. Normal skin color. Normal skin turgor. Extremities: No lower extremity edema. No calf tenderness Neuro: Oriented X 3. Right upper extremity residual weakness Results Laboratory Findings 06/10/23 07:34 06/10/23 07:34 ABG, PT/INR, D-dimer: PT/INR, D-dimer PT 12.2 SEC (11.1-13.3) 06/09/23 11:14 INR 1.0 (0.9-1.1) 06/09/23 11:14 Abnormal lab findings: Abnormal Labs 06/09/23 06/09/23 06/09/23 10:04 11:14 11:18 RBC 4.34 L Hgb 13.1 L Hct 40.4 L Plt Count 143 L MPV 9.2 L VBG HCO3 36 H Sodium 146 H Carbon Dioxide 35 H Anion Gap 10 L BUN ALT 47 H Total Creatine Kinase 934 H Urine Blood Small (1+) H Urine RBC 11-20 H Salicylates < 5.0 L 06/10/23 07:34 RBC 4.32 L Hgb 13.0 L Hct 40.8 L Plt Count 154 L MPV VBG HCO3 Sodium Carbon Dioxide 35 H Anion Gap 11 L BUN 8 L ALT Total Creatine Kinase 1351 H Urine Blood Urine RBC Salicylates Assessment and Plan (1) Aspiration pneumonia: Qualifiers: Aspiration pneumonia type: unspecified Laterality: bilateral Lung location: unspecified part of lung Qualified Code(s): J69.0 - Pneumonitis due to inhalation of food and vomit Status: Acute (2) Acute hypoxic respiratory failure: Status: Acute (3) Asthma: Qualifiers: Asthma severity: moderate Asthma persistence: persistent Asthma complication type: uncomplicated Qualified Code(s): J45.40 - Moderate persistent asthma, uncomplicated Status: Acute Plan continue antibiotic therapy nebs QID please request manual chest PT from respiratory oxygen supplementation to keep pox>90% No need for bronchoscopy at this time Procedures Date of Service Date of Service: 06/10/23
--- NOTE | 2023-06-10 11:43 | P.CNNE_ITS ---
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 He was unable to provide any history. According to nursing at times he was fully alert and awake and having some movements that according to them did not make sense and seem to suggest either seizures or pseudoseizures. When I saw him he had received intramuscular lorazepam because of those movements. Review of Systems 2 Review of Systems: Could not be done with him [facility] Past Medical History Medical History Psychogenic nonepileptic seizure Seizure disorder Chronic anticoagulation TBI (traumatic brain injury) Social History Social History Household Members: Other Housing: Senior Living Do you presently have visiting nurse or other home services: No Alcohol intake: former Patient Tobacco Use Status: Never used Tobacco Smoked in Last 30 Days: No e-Cigarette/Vaping Use: Never Used Use of substances other than those prescribed or required for medical reasons: No Currently Displaying Signs/Symptoms of Drug Intoxication Withdrawal: No Have you been hit, kicked, punched, or otherwise hurt by someone within the past year? If so, by whom?: No Do you feel safe in your current relationship?: No Current Relationship Is there a partner from a previous relationship who is making you feel unsafe now?: No Are you made to feel afraid or neglected: No Advance Directives: No Advance Directives Information Provided: No Do you have thoughts of harming others: None Do you have a plan to hurt others: No Plan Recently lost weight without trying: Unsure Nutrition Risks: No Nutritional Risk service: No Meds Allergies Allergy/AdvReac Type Severity Reaction Status Date / Time amoxicillin Allergy Anaphylaxis Verified 06/07/23 20:24 sertraline [From Zoloft] Allergy Anaphylaxis Verified 06/07/23 20:24 Active Medications: Current Medications Acetaminophen (Acetaminophen 325 Mg Tablet) 650 mg PO Q6H PRN PRN Reason: Fever Or Pain Albuterol Sulfate (Albuterol Sulfate 90 Mcg 8 Gm Inhaler) 2 puff INHALE Q6H PRN PRN Reason: Wheezing Albuterol/Ipratropium (Albuterol/Iprat 2.5/0.5mg 3 Ml Ampul.Neb) 3 ml INHALE RQ4H WHILE AWAKE [facility] Last Admin: 06/10/23 11:09 Dose: 3 ml Apixaban (Apixaban 5 Mg Tablet) 5 mg PO BID [facility] Last Admin: 06/10/23 09:08 Dose: 5 mg Artificial Tears (Artificial Tears 15 Ml Drops) 1 drop EYE-BOTH Q6H PRN PRN Reason: Dry Eye(S) Diphenhydramine HCl (Diphenhydramine Hcl 25 Mg Capsule) 25 mg PO BEDTIME PRN PRN Reason: Sleep Divalproex Sodium (Divalproex Sodium 500 Mg Tablet.Dr) 500 mg PO BID [facility] Last Admin: 06/10/23 09:08 Dose: 500 mg Escitalopram Oxalate (Escitalopram Oxalate 5 Mg Tablet) 5 mg PO DAILY [facility] Last Admin: 06/10/23 09:08 Dose: 5 mg Fluticasone/Vilanterol (Fluticasone/Vilanterol 100/25 Blst.W.Dev) 1 puff INHALE RDAILY [facility] Last Admin: 06/10/23 07:24 Dose: Not Given Guaifenesin (Guaifenesin 100 Mg/5 Ml Liquid) 15 ml PO Q6H PRN PRN Reason: Cough Sodium Chloride (Ns) 1,000 mls @ 125 mls/hr IVCONT .Q8H [facility] Last Admin: 06/10/23 05:47 Dose: 125 mls/hr Ceftriaxone Sodium 1 gm/ (Sodium Chloride) 50 mls @ 100 mls/hr IV Q24H [facility] Last Infusion: 06/09/23 20:14 Dose: Infused Doxycycline Hyclate 100 mg/ (Sodium Chloride) 250 mls @ 166.67 mls/hr IV Q12H [facility] Last Infusion: 06/10/23 04:24 Dose: Infused Levetiracetam (Levetiracetam 1,000 Mg Tablet) 1,000 mg PO BID [facility] Last Admin: 06/10/23 09:12 Dose: 1,000 mg Lorazepam (Lorazepam 2 Mg/Ml Vial) 2 mg IM DAILY PRN PRN Reason: Seizure Activity Last Admin: 06/10/23 09:50 Dose: 2 mg Melatonin (Melatonin 3 Mg Tablet) 6 mg PO BEDTIME [facility] Last Admin: 06/09/23 22:47 Dose: 6 mg Multivitamins/Vitamin C (Multivitamin Tablet) 1 tab PO DAILY [facility] Last Admin: 06/10/23 09:08 Dose: 1 tab Olanzapine (Olanzapine 10 Mg Tablet) 10 mg PO BEDTIME [facility] Last Admin: 06/09/23 22:48 Dose: 10 mg Ondansetron HCl (Ondansetron Hcl 4 Mg/2 Ml Vial) 4 mg IVPUSH Q4H PRN PRN Reason: nause/avomting Quetiapine Fumarate (Quetiapine Fumarate 25 Mg Tablet) 25 mg PO DAILY [facility] Last Admin: 06/10/23 09:08 Dose: 25 mg Senna (Sennosides 8.6 Mg Tablet) 8.6 mg PO DAILY PRN PRN Reason: Constipation Sodium Chloride (0.9 % Sodium Chloride Flush 3 Ml Syringe) 3 ml IVFLUSH QSHIFT [facility] Last Admin: 06/10/23 09:08 Dose: Not Given Home Medications Medication Instructions Recorded Confirmed Last Taken Type acetaminophen 325 mg tablet 650 mg PO Q6H PRN Fever Or Pain 04/15/23 06/09/23 Unknown History albuterol sulfate 90 mcg/actuation 2 puff inhalation Q6H PRN Wheezing 04/15/23 06/09/23 Unknown History aerosol inhaler apixaban 5 mg tablet (Eliquis) 5 mg PO BID 04/15/23 06/09/23 Unknown History citalopram 10 mg tablet 10 mg PO DAILY 04/15/23 06/09/23 Unknown History diphenhydramine HCl 25 mg tablet 25 mg PO BEDTIME PRN Sleep 04/15/23 06/09/23 Unknown History divalproex 500 mg tablet,delayed 500 mg PO BID 04/15/23 06/09/23 Unknown History release (Depakote) ibuprofen 600 mg tablet 600 mg PO Q6H PRN Pain 04/15/23 06/09/23 Unknown History multivitamin 1 tab PO DAILY 04/15/23 06/09/23 Unknown History olanzapine 10 mg tablet 10 mg PO BEDTIME 04/15/23 06/09/23 Unknown History ondansetron HCl 4 mg tablet 4 mg PO Q8H PRN Nausea And Vomiting 04/15/23 06/09/23 Unknown History quetiapine 25 mg tablet 25 mg PO DAILY 04/15/23 06/09/23 Unknown History sennosides 8.6 mg tablet (senna) 8.6 mg PO DAILY PRN Constipation 04/15/23 06/09/23 Unknown History guaifenesin 100 mg/5 mL oral liquid 300 mg PO Q6H PRN Cough 05/03/23 06/09/23 Unknown History melatonin 5 mg tablet 5 mg PO BEDTIME 05/03/23 06/09/23 Unknown History polyvinyl alcohol 1.4 % eye drops 1 drp ophthalmic (eye) Q6H PRN Dry 05/03/23 06/09/23 Unknown History Eye(S) fluticasone 250 mcg-salmeterol 50 1 inh inhalation BID 06/09/23 06/09/23 Unknown History mcg/dose blistr powdr for inhalation (Advair Diskus) lorazepam 2 mg/mL injection 2 mg IM DAILY PRN Seizure Activity 06/09/23 06/09/23 Unknown History solution Physical Exam 2 Vital Signs: Vital Signs: Last Vital Signs Temp 97.0 F 06/10/23 07:54 Pulse 108 H 06/10/23 11:11 Resp 18 06/10/23 11:11 BP 134/71 06/10/23 07:54 Pulse Ox 96 06/10/23 07:54 O2 Del Method Nasal Cannula 06/10/23 07:54 O2 Flow Rate 2 06/10/23 07:54 Oxygen Flow Rate 4 06/09/23 08:56 BMI result Body Mass Index 37.3 Neuro: Other: Exam is limited because of sedation. He was snoring. I tried to wake him up in he responded to pain but did not open his eyes. His eyes were slightly deviated to left but he was able to move them to the right side. Face seem pendulous. No abnormal movement or jerking was noted. Plantars were flat. Results Labs 06/10/23 07:34 06/10/23 07:34 Labs: Short CBC 06/10/23 Range/Units 07:34 WBC 6.0 (4.8-10.8) X10*3/uL Hgb 13.0 L (14.0-18.0) g/dl Hct 40.8 L (42.0-52.0) % Plt Count 154 L (160-400) X10*3/uL BMP 06/10/23 07:34 Sodium 145 Potassium 4.4 Chloride 103 Carbon Dioxide 35 H BUN 8 L Creatinine 0.76 Calcium 8.9 Cardiac Enzymes 06/10/23 Range/Units 07:34 Total Creatine Kinase 1351 H (38-174) U/L Head CT revealed moderately severe diffuse ventricular enlargement. Assessment and Plan (1) Epileptic seizure: Status: Acute 37 years old man who probably has underlying chronic static encephalopathy of unknown etiology was in hospital with possible seizure disorder. At this time he was sedated with intramuscular as a Bia and examination was limited. For definition, I recommend an EEG. If that was not possible, tentatively he could be treated with levetiracetam 500-1000 mg twice a day. Procedures Date of Service Date of Service: 06/10/23
--- NOTE | 2023-06-10 12:02 | PC.NURSE ---
Rapid response called at approximately 0945 this morning for witnessed seizure activity. Pt had been sitting on the side of the bed and fell backwards onto bed at a right angle. I called for nurse Drummond who in turn called a rapid response for me. Team responded, along with Dr. Mckoy, who checked patient out. Administered IV ativan, patient responded well. Vitals taken, logged into computer. temp 97.0, bp 136/82, hr 90, rr 18, sats 96 on 2 L O2 via NC. Patient is stable, calm, and I will continue to monitor.
--- NOTE | 2023-06-10 12:52 | P.PNIM_ITS ---
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 Afterwards, stated I had a seizure Denies dyspnea or cough No fever on 2L O2 Review of Systems Review of Systems: Yes all other systems are reviewed and are negative Physical Exam 2 Vital Signs: Vital Signs: Last Vital Signs Temp 97.0 F 06/10/23 11:58 Pulse 95 06/10/23 11:58 Resp 20 06/10/23 11:58 BP 107/73 06/10/23 11:58 Pulse Ox 96 06/10/23 11:58 O2 Del Method Nasal Cannula 06/10/23 11:58 O2 Flow Rate 2 06/10/23 11:58 Oxygen Flow Rate 4 06/09/23 08:56 BMI result Body Mass Index 37.3 Gen: in no acute distress HEENT: sclera anicteric, moist mucus membranes Neck: supple Lungs: diminished Heart: regular rate and rhythm, no murmurs Abd: soft, non-tender, non-distended Ext: no edema Skin: warm/well-perfused Neuro: alert and oriented to person/place/year/month, chronic RUE weakness Psych: appropriate affect Objective Data Active Medications Acetaminophen (Acetaminophen 325 Mg Tablet) 650 mg PO Q6H PRN PRN Reason: Fever Or Pain Albuterol Sulfate (Albuterol Sulfate 90 Mcg 8 Gm Inhaler) 2 puff INHALE Q6H PRN PRN Reason: Wheezing Albuterol/Ipratropium (Albuterol/Iprat 2.5/0.5mg 3 Ml Ampul.Neb) 3 ml INHALE RQ4H WHILE AWAKE [facility] Last Admin: 06/10/23 11:09 Dose: 3 ml Documented By: VINNY Apixaban (Apixaban 5 Mg Tablet) 5 mg PO BID [facility] Last Admin: 06/10/23 09:08 Dose: 5 mg Documented By: MICHELLE Artificial Tears (Artificial Tears 15 Ml Drops) 1 drop EYE-BOTH Q6H PRN PRN Reason: Dry Eye(S) Diphenhydramine HCl (Diphenhydramine Hcl 25 Mg Capsule) 25 mg PO BEDTIME PRN PRN Reason: Sleep Divalproex Sodium (Divalproex Sodium 500 Mg Tablet.) 500 mg PO BID [facility] Last Admin: 06/10/23 09:08 Dose: 500 mg Documented By: MICHELLE Escitalopram Oxalate (Escitalopram Oxalate 5 Mg Tablet) 5 mg PO DAILY [facility] Last Admin: 06/10/23 09:08 Dose: 5 mg Documented By: MICHELLE Fluticasone/Vilanterol (Fluticasone/Vilanterol 100/25 Blst.W.Dev) 1 puff INHALE RDAILY [facility] Last Admin: 06/10/23 07:24 Dose: Not Given Documented By: VINNY Non-Admin Reason: Med Not Available Guaifenesin (Guaifenesin 100 Mg/5 Ml Liquid) 15 ml PO Q6H PRN PRN Reason: Cough Sodium Chloride (Ns) 1,000 mls @ 125 mls/hr IVCONT .Q8H [facility] Last Admin: 06/10/23 12:17 Dose: 125 mls/hr Documented By: MICHELLE Ceftriaxone Sodium 1 gm/ (Sodium Chloride) 50 mls @ 100 mls/hr IV Q24H [facility] Last Infusion: 06/09/23 20:14 Dose: Infused Documented By: ALY Doxycycline Hyclate 100 mg/ (Sodium Chloride) 250 mls @ 166.67 mls/hr IV Q12H [facility] Last Admin: 06/10/23 12:18 Dose: 166.67 mls/hr Documented By: MICHELLE Levetiracetam (Levetiracetam 1,000 Mg Tablet) 1,000 mg PO BID [facility] Last Admin: 06/10/23 09:12 Dose: 1,000 mg Documented By: MICHELLE Lorazepam (Lorazepam 2 Mg/Ml Vial) 2 mg IM DAILY PRN PRN Reason: Seizure Activity Last Admin: 06/10/23 09:50 Dose: 2 mg Documented By: MICHELLE Melatonin (Melatonin 3 Mg Tablet) 6 mg PO BEDTIME [facility] Last Admin: 06/09/23 22:47 Dose: 6 mg Documented By: LEONARD Multivitamins/Vitamin C (Multivitamin Tablet) 1 tab PO DAILY [facility] Last Admin: 06/10/23 09:08 Dose: 1 tab Documented By: MICHELLE Olanzapine (Olanzapine 10 Mg Tablet) 10 mg PO BEDTIME [facility] Last Admin: 06/09/23 22:48 Dose: 10 mg Documented By: LEONARD Ondansetron HCl (Ondansetron Hcl 4 Mg/2 Ml Vial) 4 mg IVPUSH Q4H PRN PRN Reason: nause/avomting Quetiapine Fumarate (Quetiapine Fumarate 25 Mg Tablet) 25 mg PO DAILY [facility] Last Admin: 06/10/23 09:08 Dose: 25 mg Documented By: MICHELLE Senna (Sennosides 8.6 Mg Tablet) 8.6 mg PO DAILY PRN PRN Reason: Constipation Sodium Chloride (0.9 % Sodium Chloride Flush 3 Ml Syringe) 3 ml IVFLUSH QSHIFT [facility] Last Admin: 06/10/23 09:08 Dose: Not Given Documented By: MICHELLE Non-Admin Reason: IV Running Labs 06/10/23 07:34 06/10/23 07:34 Labs: Laboratory Results - last 24 hr 06/09/23 06/09/23 06/10/23 10:04 11:14 07:34 MCV 94.4 MCH 30.1 MCHC 31.9 RDW 12.8 Plt Count 154 L MPV 9.4 Absolute Nucleated RBC 0.000 Nucleated RBC % (auto) 0.0 Anion Gap 11 L Estim Creat Clear Calc 148.7 Estimated GFR > 60 Random Glucose 86 Calcium 8.9 Total Creatine Kinase 1351 H Procalcitonin 0.03 Urine Opiates Screen Not Detected Urine Fentanyl Screen Not Detected Ur Barbiturates Screen Not Detected Ur Phencyclidine Scrn Not Detected Ur Amphetamines Screen Not Detected U Benzodiazepines Scrn Not Detected Urine Cocaine Screen Not Detected U Marijuana (THC) Screen Not Detected Microbiology Microbiology Results: Microbiology 06/09/23 10:38 Blood Culture - Preliminary Blood - Venous No growth after 24 hours. 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, NDD1/nectar liquids until done filling defect in trachea/L bronchus - per Pulm not a FB but rather posterior trachealis muscle keny into the airway seizure disorder- ?breakthrough seizures - continue Keppra + Depakote + check levels, prn lorazepam, consult Neurology mild rhabdo - IV NS, repeat in AM, essentially no risk of renal injury at this level hyperNa, mild - resolved, encourage free water intake anticoagulation, chronic - on Eliquis, unclear indication, will reach out to Dr Mcmillan at [facility] in AM for information chronic lung disease - Advair, prn albuterol mood disorder - olanzapine, quetiapine, citalopram, Depakote VTE ppx - apixaban [clarify indication] code - full dispo - eventual return to LTC In my clinical judgment, the patient requires continued inpatient hospitalization for the following reasons: hypoxia, IV ABX, seizure workup Total time managing care of this patient today: 45 minutes. Quality Stroke Does the patient have a stroke diagnosis?: No VTE Prior VTE?: No VTE Risk Level:: Medical - moderate - high VTE Device Contraindication: N/A - Device Ordered VTE Drug Contraindication: N/A - Med Ordered
--- NOTE | 2023-06-10 13:33 | MHC.CM.PN ---
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 CM will follow and assist as needed with DC planning.
--- NOTE | 2023-06-10 13:36 | PC.NURSE ---
Pt has respiratory pathogen panel ordered, pt has been sleeping since seizure activity and ativan administration. Does not have a productive cough. notified
--- NOTE | 2023-06-10 14:06 | MHC.SLORD ---
Speech Language Pathology Order Status: Unable to work with patient today after his seizure activity in the morning. Per EMR, he was discharged with recommendations for Chopped/Advanced Solids (NDD3) and Thin Liquids.
[2023-06-10] MEDS: vancomycin/NS 2,000 MG/500 ML PLAST..BAG 250 MG IV (15:13)
[2023-06-10] MEDS: 0.9 % Sodium Chloride Flush 3 ML SYRINGE IVFLUSH (15:13)
--- NOTE | 2023-06-10 16:00 | PHA.PROG ---
Admission Date/Time: June 09, 2023 18:28 Indication: bacteremia Weight in k.6 kg Adjusted body weight in K.54 [place] body weight in Kg: Obesity Dosing Indication % IBW: Serum Creatinine - Last 168 Hours 06/09/23 06/10/23 11:14 07:34 Creatinine 0.77 0.76 Estimated CrCl and GFR - Last 168 Hours 06/09/23 06/10/23 11:14 07:34 Estim Creat Clear Calc 146.8 148.7 Estimated GFR > 60 > 60 Vancomycin Loading Dose: 2000 mg Current Vancomycin Dosing Regimen: 1500mg q12h Vancomycin Monitoring using AUC goal of 400 - 600 range with trough as surrogate marker: AUC 552, TROUGH 17 Date and Time for next Vancomycin Level to be drawn: RANDOM 06/11 @1300 Pharmacist Comments on Vancomycin Plan: Vancomycin dosing will take advantage of [employer] as a clinical decision support tool that uses Bayesian modeling to calculate individual patient's pharmacokinetic parameters and forecast the patient's drug concentration time course with the target goal AUC 24 range of 400 - 600 mg/L/hr.
[2023-06-10] MEDS: cefTRIAXone sodium 1 GM in 0.9 % Sodium Chloride 50 ML IV (19:39)
[2023-06-10] MEDS: guaiFENesin 100 MG/5 ML LIQUID 15 ML PO (20:59)
[2023-06-10] MEDS: Melatonin 3 MG TABLET 6 MG PO (21:01)
[2023-06-10] MEDS: Acetaminophen 325 MG TABLET 650 MG PO (21:01)
[2023-06-10] MEDS: diphenhydrAMINE HCL 25 MG CAPSULE PO (21:01)
[2023-06-10] MEDS: OLANZapine 10 MG TABLET PO (21:01)
[2023-06-11] VITALS (10 sets, daily range): BP systolic 116–138; BP diastolic 60–81; PULSE 76–99; RESP 18–20; TEMP 36.1–37.1; O2SAT 92–98
[2023-06-11] MEDS: Doxycycline Hyclate 100 MG in 0.9 % Sodium Chloride 250 ML 166.67 MG IV ×3 (00:47→23:48)
[2023-06-11] MEDS: vancomycin HCL 1,500 MG in 0.9 % Sodium Chloride 500 ML 333.33 MG IV (03:55)
[2023-06-11] MEDS: Albuterol/Iprat 2.5/0.5MG 3 ML AMPUL.NEB INHALE ×4 (07:58→18:43)
[2023-06-11 08:42] LABS: Valproate 48.7 mcg/mL (50.0-100.0)
[2023-06-11 08:45] LABS: Adenovirus PCR Not Detected (Not Detect.); Bordetella parapertussis PCR Not Detected (Not Detect.); Bordetella pertussis PCR Not Detected (Not Detect.); Chlamydia pneumoniae PCR Not Detected (Not Detect.); Coronavirus 229E PCR Not Detected (Not Detect.); Coronavirus HKU1 PCR Not Detected (Not Detect.); Coronavirus NL63 PCR Not Detected (Not Detect.); Coronavirus OC43 PCR Not Detected (Not Detect.); Human metapneumovirus PCR Not Detected (Not Detect.); Influenza A PCR Not Detected (Not Detect.); Influenza B PCR Not Detected (Not Detect.); Mycoplasma pneumoniae PCR Not Detected (Not Detect.); Parainfluenza 1 PCR Not Detected (Not Detect.); Parainfluenza 2 PCR Not Detected (Not Detect.); Parainfluenza 3 PCR Not Detected (Not Detect.); Parainfluenza 4 PCR Not Detected (Not Detect.); RSV PCR Not Detected (Not Detect.); Rhino/Enterovirus PCR Not Detected (Not Detect.)
[2023-06-11 08:49] LABS: Anion Gap 11 (12-20); Blood Urea Nitrogen 6 mg/dL (9-16); Calcium 9.1 mg/dL (8.4-10.2); Carbon Dioxide 33 mmol/L (22-29); Chloride 104 mmol/L (96-108); Creatinine Clr Calc Pharmacy 144.9; Estimated Glomerular Filt Rate > 60; Glucose Random 75 mg/dL (60-115); Potassium 4.4 mmol/L (3.3-5.1); Sodium 144 mmol/L (135-145)
[2023-06-11 08:59] LABS: SARS-CoV-2 PCR Not Detected (Not Detect.)
[2023-06-11] MEDS: 0.9 % Sodium Chloride 1,000 ML 125 ML IVCONT (09:05)
[2023-06-11 09:07] LABS: Hematocrit 42.5 % (42.0-52.0); Mean Corpuscular HGB Conc 32.9 g/dl (31.0-36.0); Mean Corpuscular Hemoglobin 30.8 pg (27.0-33.0); Mean Corpuscular Volume 93.4 fL (80.0-98.0); Mean Platelet Volume 9.9 fL (9.4-12.4); Platelet Count 128 X10*3/uL (160-400); Red Blood Count 4.55 X10*6/uL (4.60-5.80); Red Cell Distribution Width 12.8 % (11.0-16.0); White Blood Count 4.4 X10*3/uL (4.8-10.8)
[2023-06-11] MEDS: 0.9 % Sodium Chloride Flush 3 ML SYRINGE IVFLUSH ×3 (09:07→20:10)
[2023-06-11] MEDS: Apixaban 5 MG TABLET PO ×2 (09:11→20:09)
[2023-06-11] MEDS: Multivitamin TABLET 1 TAB PO (09:11)
[2023-06-11] MEDS: Divalproex Sodium 500 MG TABLET.DR PO ×2 (09:11→20:10)
[2023-06-11] MEDS: QUEtiapine Fumarate 25 MG TABLET PO (09:11)
[2023-06-11] MEDS: Escitalopram Oxalate 5 MG TABLET PO (09:11)
[2023-06-11] MEDS: Fluticasone/Vilanterol 100/25 BLST.W.DEV 1 PUFF INHALE (09:18)
[2023-06-11] MEDS: levETIRAcetam 1,000 MG TABLET 1000 MG PO ×2 (09:19→20:10)
--- NOTE | 2023-06-11 12:21 | HO.PM.IMPN ---
Subjective Subjective Date of Service: 06/11/23 Interval History: States I feel like I'm going to have a seizure then tenses up and shakes, but not postictal. 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, on vancomycin Denies cough though poor historian Review of Systems Review of Systems: Yes all other systems are reviewed and are negative Physical Exam Vital Signs: Vital Signs: Last Vital Signs Temp 97 F 06/11/23 11:32 Pulse 96 06/11/23 11:32 Resp 18 06/11/23 11:32 BP 116/60 06/11/23 11:32 Pulse Ox 95 06/11/23 11:32 O2 Del Method Room Air 06/11/23 11:32 O2 Flow Rate 2 06/11/23 11:32 Oxygen Flow Rate 4 06/09/23 08:56 BMI result Body Mass Index 37.3 Gen: in no acute distress HEENT: sclera anicteric, moist mucus membranes Neck: supple Lungs: diminished Heart: regular rate and rhythm, no murmurs Abd: soft, non-tender, non-distended Ext: no edema Skin: warm/well-perfused Neuro: alert and oriented to person/place/year/month, chronic RUE weakness Psych: appropriate affect Objective Data Active Medications Acetaminophen (Acetaminophen 325 Mg Tablet) 650 mg PO Q6H PRN PRN Reason: Fever Or Pain Last Admin: 06/10/23 21:01 Dose: 650 mg Documented By: EDDIE Albuterol Sulfate (Albuterol Sulfate 90 Mcg 8 Gm Inhaler) 2 puff INHALE Q6H PRN PRN Reason: Wheezing Albuterol/Ipratropium (Albuterol/Iprat 2.5/0.5mg 3 Ml Ampul.Neb) 3 ml INHALE RQ4H WHILE AWAKE [facility] Last Admin: 06/11/23 11:25 Dose: 3 ml Documented By: RANDY Apixaban (Apixaban 5 Mg Tablet) 5 mg PO BID [facility] Last Admin: 06/11/23 09:11 Dose: 5 mg Documented By: KARIN Artificial Tears (Artificial Tears 15 Ml Drops) 1 drop EYE-BOTH Q6H PRN PRN Reason: Dry Eye(S) Diphenhydramine HCl (Diphenhydramine Hcl 25 Mg Capsule) 25 mg PO BEDTIME PRN PRN Reason: Sleep Last Admin: 06/10/23 21:01 Dose: 25 mg Documented By: EDDIE Divalproex Sodium (Divalproex Sodium 500 Mg Tablet.Dr) 500 mg PO BID [facility] Last Admin: 06/11/23 09:11 Dose: 500 mg Documented By: KARIN Escitalopram Oxalate (Escitalopram Oxalate 5 Mg Tablet) 5 mg PO DAILY [facility] Last Admin: 06/11/23 09:11 Dose: 5 mg Documented By: KARIN Fluticasone/Vilanterol (Fluticasone/Vilanterol 100/25 Blst.W.Dev) 1 puff INHALE RDAILY [facility] Last Admin: 06/11/23 09:18 Dose: 1 puff Documented By: RANDY Guaifenesin (Guaifenesin 100 Mg/5 Ml Liquid) 15 ml PO Q6H PRN PRN Reason: Cough Last Admin: 06/10/23 20:59 Dose: 15 ml Documented By: EDDIE Sodium Chloride (Ns) 1,000 mls @ 125 mls/hr IVCONT .Q8H [facility] Last Admin: 06/11/23 09:05 Dose: 125 mls/hr Documented By: KARIN Ceftriaxone Sodium 1 gm/ (Sodium Chloride) 50 mls @ 100 mls/hr IV Q24H [facility] Last Infusion: 06/10/23 20:32 Dose: Infused Documented By: EDDIE Doxycycline Hyclate 100 mg/ (Sodium Chloride) 250 mls @ 166.67 mls/hr IV Q12H [facility] Last Admin: 06/11/23 11:55 Dose: 166.67 mls/hr Documented By: KARIN Vancomycin HCl 1,500 mg/ (Sodium Chloride) 500 mls @ 333.333 mls/hr IV Q12H [facility] Last Infusion: 06/11/23 05:48 Dose: Infused Documented By: XAVIER Levetiracetam (Levetiracetam 1,000 Mg Tablet) 1,000 mg PO BID [facility] Last Admin: 06/11/23 09:19 Dose: 1,000 mg Documented By: KARIN Lorazepam (Lorazepam 2 Mg/Ml Vial) 2 mg IM DAILY PRN PRN Reason: Seizure Activity Last Admin: 06/10/23 09:50 Dose: 2 mg Documented By: MICHELLE Melatonin (Melatonin 3 Mg Tablet) 6 mg PO BEDTIME [facility] Last Admin: 06/10/23 21:01 Dose: 6 mg Documented By: EDDIE Multivitamins/Vitamin C (Multivitamin Tablet) 1 tab PO DAILY [facility] Last Admin: 06/11/23 09:11 Dose: 1 tab Documented By: KARIN Olanzapine (Olanzapine 10 Mg Tablet) 10 mg PO BEDTIME [facility] Last Admin: 06/10/23 21:01 Dose: 10 mg Documented By: EDDIE Ondansetron HCl (Ondansetron Hcl 4 Mg/2 Ml Vial) 4 mg IVPUSH Q4H PRN PRN Reason: nause/avomting Pharmacy Consult (Consult Rx Vancomycin Dosing) 1 each MISCELLANE DAILY PRN PRN Reason: Consult order Quetiapine Fumarate (Quetiapine Fumarate 25 Mg Tablet) 25 mg PO DAILY [facility] Last Admin: 06/11/23 09:11 Dose: 25 mg Documented By: KARIN Senna (Sennosides 8.6 Mg Tablet) 8.6 mg PO DAILY PRN PRN Reason: Constipation Sodium Chloride (0.9 % Sodium Chloride Flush 3 Ml Syringe) 3 ml IVFLUSH QSHIFT [facility] Last Admin: 06/11/23 09:07 Dose: 3 ml Documented By: KARIN Labs 06/11/23 07:56 06/11/23 07:56 Labs: Laboratory Results - last 24 hr 06/10/23 06/11/23 06/11/23 14:10 07:56 07:56 MCV 93.4 MCH 30.8 MCHC 32.9 RDW 12.8 Plt Count 128 L MPV 9.9 Absolute Nucleated RBC 0.000 Nucleated RBC % (auto) 0.0 Anion Gap 11 L Estim Creat Clear Calc 144.9 Cancelled Estimated GFR > 60 Random Glucose Calcium Total Creatine Kinase Valproic Acid Respiratory Panel Lee See Note Adenovirus (Rapid PCR) Not Detected B.pert (TEM-PCR) Not Detected B.parapertussis DNA PCR Not Detected C. pneumoniae DNA (PCR) Not Detected Coronavirus OC43 (PCR) Not Detected Coronavirus HKU1 (PCR) Not Detected Coronavirus 229E (PCR) Not Detected Coronavirus NL63 (PCR) Not Detected Human Metapneumovir PCR Not Detected Influenza A (RT-PCR) Not Detected Influenza B (RT-PCR) Not Detected M. pneumoniae (PCR) Not Detected Parainfluenza 1 (PCR) Not Detected Parainfluenza 2 (PCR) Not Detected Parainfluenza 3 (PCR) Not Detected Parainfluenza 4 (PCR) Not Detected RSV (PCR) Not Detected Entero/Rhino (PCR) Not Detected SARS-CoV-2 RNA (RT-PCR) Not Detected 06/11/23 07:56 MCV MCH MCHC RDW Plt Count MPV Absolute Nucleated RBC Nucleated RBC % (auto) Anion Gap Estim Creat Clear Calc Estimated GFR Cancelled Random Glucose 75 Calcium 9.1 Total Creatine Kinase 967 H Valproic Acid 48.7 L Respiratory Panel [place] Adenovirus (Rapid PCR) B.pert (TEM-PCR) B.parapertussis DNA PCR C. pneumoniae DNA (PCR) Coronavirus OC43 (PCR) Coronavirus HKU1 (PCR) Coronavirus 229E (PCR) Coronavirus NL63 (PCR) Human Metapneumovir PCR Influenza A (RT-PCR) Influenza B (RT-PCR) M. pneumoniae (PCR) Parainfluenza 1 (PCR) Parainfluenza 2 (PCR) Parainfluenza 3 (PCR) Parainfluenza 4 (PCR) RSV (PCR) Entero/Rhino (PCR) SARS-CoV-2 RNA (RT-PCR) Microbiology Microbiology Results: Microbiology 06/09/23 10:58 Blood Culture - Preliminary Blood - Venous Gram positive cocci 06/09/23 10:38 Blood Culture - Preliminary Blood - Venous Gram positive cocci Assessment and Plan (1) Aspiration pneumonia: Status: Acute Plan d3 37yo M LTC resident ([facility] in [place]) with TBI, hx seizures/pseudoseizures, 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, PTSD, NEREYDA brought in after multiple seizures though specific history not available; however, found to be hypoxic with RML/RLL infiltrates GPC bacteremia - vancomycin d2, follow speciation/susceptibilities; may require surveillance cultures and TTE if proven to be pathogenic AHRF due to PNA - wean O2 as tolerated - ceftriaxone + doxycycline d3 - trend PCT, RPP negative - 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 MOTORS 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 GENERATORS INSPECTOR evaluation, NDD3 solids + thin liquids filling defect in trachea/L bronchus - per Pulm not a FB but rather posterior trachealis muscle keny into the airway breakthrough seizures vs PNES - continue Keppra + Depakote, prn lorazepam, Neurology consulted, EEG pending mild rhabdo - d/c IV NS now that CPK < 1000 hyperNa, mild - resolved, encourage free water intake anticoagulation, chronic - on Eliquis, unclear indication, per Dr Mcmillan at [facility] continue; he is looking into the indication chronic lung disease - Advair, prn albuterol mood disorder - olanzapine, quetiapine, citalopram, Depakote VTE ppx - apixaban code - full dispo - eventual return to LTC In my clinical judgment, the patient requires continued inpatient hospitalization for the following reasons: hypoxia, IV ABX, bacteremia Total time managing care of this patient today: 45 minutes. Quality Stroke Does the patient have a stroke diagnosis?: No VTE Prior VTE?: No VTE Risk Level:: Medical - moderate - high VTE Device Contraindication: N/A - Device Ordered VTE Drug Contraindication: N/A - Med Ordered
[2023-06-11 13:49] LABS: Vancomycin Random 16.6 mcg/mL (15-20)
--- NOTE | 2023-06-11 13:57 | HE.PHANOTE ---
RE VANCO TROUGH RETURNED HIGHER THAN EXPECTED AFTER TWO DOSES. WILL LOWER DOSE AND RESTART THIS EVENING TO GIVE PATIENT MORE TIME WITHOUT DRUG. NEXT DOSE DUE AT 2000 AND NEXT LEVEL DUE 06/12 AT 1800. NEW DOSING REGIMEN IS 1250MG Q12H. SUSPECTED AUC OF 507, TROUGH OF 15.7
[2023-06-11] MEDS: cefTRIAXone sodium 1 GM in 0.9 % Sodium Chloride 50 ML IV (18:33)
[2023-06-11] MEDS: vancomycin HCL 1,250 MG in 0.9 % Sodium Chloride 250 ML 166.67 MG IV (20:06)
[2023-06-11] MEDS: Melatonin 3 MG TABLET 6 MG PO (20:09)
[2023-06-11] MEDS: OLANZapine 10 MG TABLET PO (20:10)
[2023-06-11] MEDS: diphenhydrAMINE HCL 25 MG CAPSULE PO (20:23)
[2023-06-12] VITALS (10 sets, daily range): BP systolic 101–164; BP diastolic 58–85; PULSE 74–108; RESP 18–20; TEMP 36.1–36.7; O2SAT 90–99
[2023-06-12] MEDS: Fluticasone/Vilanterol 100/25 BLST.W.DEV 1 PUFF INHALE (07:53)
[2023-06-12] MEDS: Albuterol/Iprat 2.5/0.5MG 3 ML AMPUL.NEB INHALE ×3 (07:53→19:41)
[2023-06-12] MEDS: Escitalopram Oxalate 5 MG TABLET PO (09:14)
[2023-06-12] MEDS: Apixaban 5 MG TABLET PO ×2 (09:14→21:12)
[2023-06-12] MEDS: Divalproex Sodium 500 MG TABLET.DR PO ×2 (09:14→21:12)
[2023-06-12] MEDS: QUEtiapine Fumarate 25 MG TABLET PO (09:14)
[2023-06-12] MEDS: levETIRAcetam 1,000 MG TABLET 1000 MG PO ×2 (09:14→21:12)
[2023-06-12] MEDS: vancomycin HCL 1,250 MG in 0.9 % Sodium Chloride 250 ML 166.67 MG IV (09:14)
[2023-06-12] MEDS: Multivitamin TABLET 1 TAB PO (09:14)
[2023-06-12] MEDS: 0.9 % Sodium Chloride Flush 3 ML SYRINGE IVFLUSH ×4 (09:23→21:12)
--- NOTE | 2023-06-12 10:29 | HO.PM.IMPN ---
Subjective Subjective Date of Service: 06/12/23 Interval History: coughing on 2L O2 no fever Review of Systems Review of Systems: Yes all other systems are reviewed and are negative Physical Exam Vital Signs: Vital Signs: Last Vital Signs Temp 97.4 F 06/12/23 07:40 Pulse 83 06/12/23 07:57 Resp 18 06/12/23 07:57 BP 135/79 06/12/23 07:40 Pulse Ox 98 06/12/23 07:40 O2 Del Method Nasal Cannula 06/12/23 07:40 O2 Flow Rate 2 06/12/23 07:40 Oxygen Flow Rate 4 06/09/23 08:56 BMI result Body Mass Index 37.3 Gen: in no acute distress HEENT: sclera anicteric, moist mucus membranes Neck: supple Lungs: diminished Heart: regular rate and rhythm, no murmurs Abd: soft, non-tender, non-distended Ext: no edema Skin: warm/well-perfused Neuro: alert and oriented to person/place/year/month, chronic RUE weakness Psych: appropriate affect Objective Data Active Medications Acetaminophen (Acetaminophen 325 Mg Tablet) 650 mg PO Q6H PRN PRN Reason: Fever Or Pain Last Admin: 06/10/23 21:01 Dose: 650 mg Documented By: EDDIE Albuterol Sulfate (Albuterol Sulfate 90 Mcg 8 Gm Inhaler) 2 puff INHALE Q6H PRN PRN Reason: Wheezing Albuterol/Ipratropium (Albuterol/Iprat 2.5/0.5mg 3 Ml Ampul.Neb) 3 ml INHALE RQ4H WHILE AWAKE [facility] Last Admin: 06/12/23 07:53 Dose: 3 ml Documented By: WAQAS Apixaban (Apixaban 5 Mg Tablet) 5 mg PO BID [facility] Last Admin: 06/12/23 09:14 Dose: 5 mg Documented By: DONNYARVee Artificial Tears (Artificial Tears 15 Ml Drops) 1 drop EYE-BOTH Q6H PRN PRN Reason: Dry Eye(S) Diphenhydramine HCl (Diphenhydramine Hcl 25 Mg Capsule) 25 mg PO BEDTIME PRN PRN Reason: Sleep Last Admin: 06/11/23 20:23 Dose: 25 mg Documented By: TIGIST Divalproex Sodium (Divalproex Sodium 500 Mg Tablet.) 500 mg PO BID [facility] Last Admin: 06/12/23 09:14 Dose: 500 mg Documented By: TOM Escitalopram Oxalate (Escitalopram Oxalate 5 Mg Tablet) 5 mg PO DAILY [facility] Last Admin: 06/12/23 09:14 Dose: 5 mg Documented By: TOM Fluticasone/Vilanterol (Fluticasone/Vilanterol 100/25 Blst.W.Dev) 1 puff INHALE RDAILY [facility] Last Admin: 06/12/23 07:53 Dose: 1 puff Documented By: WAQAS Guaifenesin (Guaifenesin 100 Mg/5 Ml Liquid) 15 ml PO Q6H PRN PRN Reason: Cough Last Admin: 06/10/23 20:59 Dose: 15 ml Documented By: EDDIE Ceftriaxone Sodium 1 gm/ (Sodium Chloride) 50 mls @ 100 mls/hr IV Q24H [facility] Last Infusion: 06/11/23 19:16 Dose: Infused Documented By: KARIN Doxycycline Hyclate 100 mg/ (Sodium Chloride) 250 mls @ 166.67 mls/hr IV Q12H [facility] Last Infusion: 06/12/23 01:50 Dose: Infused Documented By: TIGIST Vancomycin HCl 1,250 mg/ (Sodium Chloride) 250 mls @ 166.667 mls/hr IV Q12H [facility] Last Admin: 06/12/23 09:14 Dose: 166.67 mls/hr Documented By: TOM Levetiracetam (Levetiracetam 1,000 Mg Tablet) 1,000 mg PO BID [facility] Last Admin: 06/12/23 09:14 Dose: 1,000 mg Documented By: TOM Lorazepam (Lorazepam 2 Mg/Ml Vial) 2 mg IM DAILY PRN PRN Reason: Seizure Activity Last Admin: 06/10/23 09:50 Dose: 2 mg Documented By: MICHELLE Melatonin (Melatonin 3 Mg Tablet) 6 mg PO BEDTIME [facility] Last Admin: 06/11/23 20:09 Dose: 6 mg Documented By: TIGIST Multivitamins/Vitamin C (Multivitamin Tablet) 1 tab PO DAILY [facility] Last Admin: 06/12/23 09:14 Dose: 1 tab Documented By: TOM Olanzapine (Olanzapine 10 Mg Tablet) 10 mg PO BEDTIME [facility] Last Admin: 06/11/23 20:10 Dose: 10 mg Documented By: TIGIST Ondansetron HCl (Ondansetron Hcl 4 Mg/2 Ml Vial) 4 mg IVPUSH Q4H PRN PRN Reason: nause/avomting Pharmacy Consult (Consult Rx Vancomycin Dosing) 1 each MISCELLANE DAILY PRN PRN Reason: Consult order Quetiapine Fumarate (Quetiapine Fumarate 25 Mg Tablet) 25 mg PO DAILY [facility] Last Admin: 06/12/23 09:14 Dose: 25 mg Documented By: TOM Senna (Sennosides 8.6 Mg Tablet) 8.6 mg PO DAILY PRN PRN Reason: Constipation Sodium Chloride (0.9 % Sodium Chloride Flush 3 Ml Syringe) 3 ml IVFLUSH QSHIFT [facility] Last Admin: 06/12/23 09:23 Dose: 3 ml Documented By: TOM Labs 06/11/23 07:56 06/11/23 07:56 Labs: Laboratory Results - last 24 hr 06/11/23 13:27 Random Vancomycin 16.6 Microbiology Microbiology Results: Microbiology 06/09/23 10:58 Blood Culture - Preliminary Blood - Venous Staphylococcus species 06/09/23 10:38 Blood Culture - Preliminary Blood - Venous Staphylococcus species Assessment and Plan (1) Aspiration pneumonia: Status: Acute Plan d4 37yo M LTC resident ([facility] in [place]) with TBI, hx seizures/pseudoseizures, 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, PTSD, NEREYDA brought in after multiple seizures though specific history not available; however, found to be hypoxic with RML/RLL infiltrates subsequently found to have staphylococcal bacteremia staphylococcal bacteremia - vancomycin d3, follow speciation/susceptibilities; TTE, ID consult, surveillance BCx AHRF due to PNA - wean O2 as tolerated - ceftriaxone + doxycycline d4 - trend PCT, RPP negative - per prior [employer]ER HAND evaluation, NDD3 solids + thin liquids filling defect in trachea/L bronchus - per Pulm not a foreign body, but rather posterior trachealis muscle keny into the airway breakthrough seizures vs PNES - continue Keppra + Depakote, prn lorazepam, Neurology consulted, EEG pending mild rhabdo - IV NS d/c'ed once CPK < 1000 hyperNa, mild - resolved anticoagulation, chronic - on Eliquis, unclear indication, per Dr Mcmillan at [facility] continue; he is looking into the indication chronic lung disease - Advair, prn albuterol mood disorder - olanzapine, quetiapine, citalopram, Depakote VTE ppx - apixaban code - full dispo - eventual return to LTC In my clinical judgment, the patient requires continued inpatient hospitalization for the following reasons: hypoxia, IV ABX, bacteremia Total time managing care of this patient today: 35 minutes. Quality Stroke Does the patient have a stroke diagnosis?: No VTE Prior VTE?: No VTE Risk Level:: Medical - moderate - high VTE Device Contraindication: N/A - Device Ordered VTE Drug Contraindication: N/A - Med Ordered
[2023-06-12 10:48] LABS: Hematocrit 43.1 % (42.0-52.0); Hemoglobin 13.9 g/dl (14.0-18.0); Mean Corpuscular HGB Conc 32.3 g/dl (31.0-36.0); Mean Corpuscular Volume 92.9 fL (80.0-98.0); Mean Platelet Volume 9.4 fL (9.4-12.4); Platelet Count 149 X10*3/uL (160-400); Red Blood Count 4.64 X10*6/uL (4.60-5.80); Red Cell Distribution Width 12.8 % (11.0-16.0)
[2023-06-12 10:59] LABS: Creatinine Clr Calc Pharmacy 129.9; Estimated Glomerular Filt Rate > 60
[2023-06-12 11:15] LABS: Procalcitonin 0.04 ng/mL
[2023-06-12] MEDS: Doxycycline Hyclate 100 MG in 0.9 % Sodium Chloride 250 ML 166.67 MG IV ×2 (11:37→22:59)
[2023-06-12] MEDS: cefTRIAXone sodium 1 GM in 0.9 % Sodium Chloride 50 ML IV (18:34)
[2023-06-12 18:59] LABS: Vancomycin Random 12.9 mcg/mL (15-20)
--- NOTE | 2023-06-12 19:08 | HE.PHANOTE ---
RE VANCO DOSING SCR STABLE AT 0.87. TROUGH LOW AT 12.9. WILL INCREASE DOSE BACK UP TO 1500 Q12H. RECHECK TROUGH AGAIN 06/13 @1800 TO ENSURE PROPER DOSING. EXPECTED AUC 555 AND TROUGH 16.4 WITH THIS DOSING PER INSIGHT.
[2023-06-12] MEDS: vancomycin HCL 1,500 MG in 0.9 % Sodium Chloride 500 ML 333.33 MG IV (19:46)
[2023-06-12] MEDS: Melatonin 3 MG TABLET 6 MG PO (21:12)
[2023-06-12] MEDS: OLANZapine 10 MG TABLET PO (21:14)
[2023-06-12] MEDS: diphenhydrAMINE HCL 25 MG CAPSULE PO (21:18)
--- NOTE | 2023-06-12 21:41 | P.CNID_ITS ---
History of Present Illness Data of Consult Service Date: 06/12/23 Requesting physician: Sajan Mckoy Primary Care Provider: DO NESSA Woodruff Reason for consult: bacteremia,pneumonia He presents to hospital with weakness and shortness of breath. He is hypoxic and had RA saturation in 80s. He has RML pneumonia.TIA He has had multiple seizures. He has TIA with right paralysis. URI with pneumonia in past. Review of Systems 2 Review of Systems: Yes Unobtainable due to mental condition PMFSH Past Medical History Medical History Psychogenic nonepileptic seizure Seizure disorder Chronic anticoagulation TBI (traumatic brain injury) Family History Family history: reviewed and not pertinent Social History Social History Household Members: Other Housing: [facility] Do you presently have visiting nurse or other home services: No Alcohol intake: former Patient Tobacco Use Status: Never used Tobacco Smoked in Last 30 Days: No e-Cigarette/Vaping Use: Never Used Use of substances other than those prescribed or required for medical reasons: No Currently Displaying Signs/Symptoms of Drug Intoxication Withdrawal: No Have you been hit, kicked, punched, or otherwise hurt by someone within the past year? If so, by whom?: No Do you feel safe in your current relationship?: No Current Relationship Is there a partner from a previous relationship who is making you feel unsafe now?: No Are you made to feel afraid or neglected: No Advance Directives: No Advance Directives Information Provided: No Do you have thoughts of harming others: None Do you have a plan to hurt others: No Plan Recently lost weight without trying: Unsure Nutrition Risks: No Nutritional Risk service: No Meds Allergies Allergy/AdvReac Type Severity Reaction Status Date / Time amoxicillin Allergy Anaphylaxis Verified 06/07/23 20:24 sertraline [From Zoloft] Allergy Anaphylaxis Verified 06/07/23 20:24 Active Medications: Current Medications Acetaminophen (Acetaminophen 325 Mg Tablet) 650 mg PO Q6H PRN PRN Reason: Fever Or Pain Last Admin: 06/10/23 21:01 Dose: 650 mg Albuterol Sulfate (Albuterol Sulfate 90 Mcg 8 Gm Inhaler) 2 puff INHALE Q6H PRN PRN Reason: Wheezing Albuterol/Ipratropium (Albuterol/Iprat 2.5/0.5mg 3 Ml Ampul.Neb) 3 ml INHALE RQ4H WHILE AWAKE [facility] Last Admin: 06/12/23 19:41 Dose: 3 ml Apixaban (Apixaban 5 Mg Tablet) 5 mg PO BID [facility] Last Admin: 06/12/23 21:12 Dose: 5 mg Artificial Tears (Artificial Tears 15 Ml Drops) 1 drop EYE-BOTH Q6H PRN PRN Reason: Dry Eye(S) Diphenhydramine HCl (Diphenhydramine Hcl 25 Mg Capsule) 25 mg PO BEDTIME PRN PRN Reason: Sleep Last Admin: 06/12/23 21:18 Dose: 25 mg Divalproex Sodium (Divalproex Sodium 500 Mg Tablet.Dr) 500 mg PO BID [facility] Last Admin: 06/12/23 21:12 Dose: 500 mg Escitalopram Oxalate (Escitalopram Oxalate 5 Mg Tablet) 5 mg PO DAILY [facility] Last Admin: 06/12/23 09:14 Dose: 5 mg Fluticasone/Vilanterol (Fluticasone/Vilanterol 100/25 Blst.W.Dev) 1 puff INHALE RDAILY [facility] Last Admin: 06/12/23 07:53 Dose: 1 puff Guaifenesin (Guaifenesin 100 Mg/5 Ml Liquid) 15 ml PO Q6H PRN PRN Reason: Cough Last Admin: 06/10/23 20:59 Dose: 15 ml Ceftriaxone Sodium 1 gm/ (Sodium Chloride) 50 mls @ 100 mls/hr IV Q24H [facility] Last Infusion: 06/12/23 19:12 Dose: Infused Doxycycline Hyclate 100 mg/ (Sodium Chloride) 250 mls @ 166.67 mls/hr IV Q12H [facility] Last Infusion: 06/12/23 13:22 Dose: Infused Vancomycin HCl 1,500 mg/ (Sodium Chloride) 500 mls @ 333.333 mls/hr IV Q12H [facility] Last Admin: 06/12/23 19:46 Dose: 333.33 mls/hr Levetiracetam (Levetiracetam 1,000 Mg Tablet) 1,000 mg PO BID [facility] Last Admin: 06/12/23 21:12 Dose: 1,000 mg Lorazepam (Lorazepam 2 Mg/Ml Vial) 2 mg IM DAILY PRN PRN Reason: Seizure Activity Last Admin: 06/10/23 09:50 Dose: 2 mg Melatonin (Melatonin 3 Mg Tablet) 6 mg PO BEDTIME [facility] Last Admin: 06/12/23 21:12 Dose: 6 mg Multivitamins/Vitamin C (Multivitamin Tablet) 1 tab PO DAILY [facility] Last Admin: 06/12/23 09:14 Dose: 1 tab Olanzapine (Olanzapine 10 Mg Tablet) 10 mg PO BEDTIME [facility] Last Admin: 06/12/23 21:14 Dose: 10 mg Ondansetron HCl (Ondansetron Hcl 4 Mg/2 Ml Vial) 4 mg IVPUSH Q4H PRN PRN Reason: nause/avomting Pharmacy Consult (Consult Rx Vancomycin Dosing) 1 each MISCELLANE DAILY PRN PRN Reason: Consult order Quetiapine Fumarate (Quetiapine Fumarate 25 Mg Tablet) 25 mg PO DAILY [facility] Last Admin: 06/12/23 09:14 Dose: 25 mg Senna (Sennosides 8.6 Mg Tablet) 8.6 mg PO DAILY PRN PRN Reason: Constipation Sodium Chloride (0.9 % Sodium Chloride Flush 3 Ml Syringe) 3 ml IVFLUSH QSHIFT [facility] Last Admin: 06/12/23 21:12 Dose: 3 ml Home Medications Medication Instructions Recorded Confirmed Last Taken Type acetaminophen 325 mg tablet 650 mg PO Q6H PRN Fever Or Pain 04/15/23 06/09/23 Unknown History albuterol sulfate 90 mcg/actuation 2 puff inhalation Q6H PRN Wheezing 04/15/23 06/09/23 Unknown History aerosol inhaler apixaban 5 mg tablet (Eliquis) 5 mg PO BID 04/15/23 06/09/23 Unknown History citalopram 10 mg tablet 10 mg PO DAILY 04/15/23 06/09/23 Unknown History diphenhydramine HCl 25 mg tablet 25 mg PO BEDTIME PRN Sleep 04/15/23 06/09/23 Unknown History divalproex 500 mg tablet,delayed 500 mg PO BID 04/15/23 06/09/23 Unknown History release (Depakote) ibuprofen 600 mg tablet 600 mg PO Q6H PRN Pain 04/15/23 06/09/23 Unknown History multivitamin 1 tab PO DAILY 04/15/23 06/09/23 Unknown History olanzapine 10 mg tablet 10 mg PO BEDTIME 04/15/23 06/09/23 Unknown History ondansetron HCl 4 mg tablet 4 mg PO Q8H PRN Nausea And Vomiting 04/15/23 06/09/23 Unknown History quetiapine 25 mg tablet 25 mg PO DAILY 04/15/23 06/09/23 Unknown History sennosides 8.6 mg tablet (senna) 8.6 mg PO DAILY PRN Constipation 04/15/23 06/09/23 Unknown History guaifenesin 100 mg/5 mL oral liquid 300 mg PO Q6H PRN Cough 05/03/23 06/09/23 Unknown History melatonin 5 mg tablet 5 mg PO BEDTIME 05/03/23 06/09/23 Unknown History polyvinyl alcohol 1.4 % eye drops 1 drp ophthalmic (eye) Q6H PRN Dry 05/03/23 06/09/23 Unknown History Eye(S) fluticasone 250 mcg-salmeterol 50 1 inh inhalation BID 06/09/23 06/09/23 Unknown History mcg/dose blistr powdr for inhalation (Advair Diskus) lorazepam 2 mg/mL injection 2 mg IM DAILY PRN Seizure Activity 06/09/23 06/09/23 Unknown History solution Physical Exam 2 Vital Signs: Vital Signs: Last Vital Signs Temp 97.3 F 06/12/23 19:20 Pulse 92 06/12/23 19:43 Resp 18 06/12/23 20:03 BP 136/82 06/12/23 19:20 Pulse Ox 93 06/12/23 19:20 O2 Del Method Nasal Cannula 06/12/23 19:20 O2 Flow Rate 1 06/12/23 19:20 Oxygen Flow Rate 4 06/09/23 08:56 BMI result Body Mass Index 37.3 Const: General: cooperative HEENT: Head: Yes normal to inspection Face and sinus: Yes normal facial exam Mouth: Normal oral and palatal mucosa present Teeth and gingiva: d entition normal Eyes: General: appearance normal, both eyes and all related structures P upils: Equal, round and reactive pupils present Resp: Effort & Inspection: normal respiratory effort Cardio: Rate: regular rate Rhythm: regular rhythm GI: Palpation (GI): Soft to palpation and nontender : General: Yes no CVA tenderness Back/Spine/Pelvis: Back: no CVA tenderness Skin: General skin exam: no rashes or lesions noted Neuro: Other: somnolent,not good historian Cranial nerves: Yes Equal, round and reactive pupils present Extrem: General: Yes normal to inspection Psych: Appearance: grossly normal Results Labs 06/12/23 10:02 06/12/23 10:02 Labs: Short CBC 06/12/23 Range/Units 10:02 WBC 4.0 L (4.8-10.8) X10*3/uL Hgb 13.9 L (14.0-18.0) g/dl Hct 43.1 (42.0-52.0) % Plt Count 149 L (160-400) X10*3/uL BMP 06/12/23 10:02 Creatinine 0.87 Microbiology Microbiology Results: Microbiology 06/09/23 10:58 Blood - Venous Blood Culture - Preliminary Staphylococcus species 06/09/23 10:38 Blood - Venous Blood Culture - Preliminary Staphylococcus species Assessment and Plan (1) Epileptic seizure: Status: Acute (2) Aspiration pneumonia: Qualifiers: Aspiration pneumonia type: unspecified Laterality: bilateral Lung location: unspecified part of lung Qualified Code(s): J69.0 - Pneumonitis due to inhalation of food and vomit Status: Acute There is concern over MRSA pneumonia. He has possible aspiration with MRSA in nares. Less likely concomitatant atypical or strep pneumonia. (3) Hypoxia: Status: Acute Plan Continue VAncomycin at this time. Ceftriaxone and Doxycycline may possibly be discontinued tomorrow. Check nares MRSA. Minimize aspiration Agree check HIV if not done.
[2023-06-13] VITALS (9 sets, daily range): BP systolic 120–158; BP diastolic 62–96; PULSE 72–97; RESP 16–20; TEMP 36–36.6; O2SAT 88–100
[2023-06-13 07:15] LABS: Creatinine Clr Calc Pharmacy 129.9; Estimated Glomerular Filt Rate > 60
[2023-06-13] MEDS: Albuterol/Iprat 2.5/0.5MG 3 ML AMPUL.NEB INHALE ×3 (07:41→15:37)
[2023-06-13] MEDS: Fluticasone/Vilanterol 100/25 BLST.W.DEV 1 PUFF INHALE (07:41)
[2023-06-13 08:17] LABS: HIV AB/AG Nonreactive (Nonreactive); HIV Num 1 0.05 S/CO (0.00-0.99)
[2023-06-13] MEDS: 0.9 % Sodium Chloride Flush 3 ML SYRINGE IVFLUSH (08:31)
[2023-06-13] MEDS: ondansetron HCL 4 MG/2 ML VIAL IVPUSH (08:31)
[2023-06-13] MEDS: Apixaban 5 MG TABLET PO (09:43)
[2023-06-13] MEDS: Escitalopram Oxalate 5 MG TABLET PO (09:43)
[2023-06-13] MEDS: Doxycycline Monohydrate 100 MG CAPSULE PO (09:44)
[2023-06-13] MEDS: Multivitamin TABLET 1 TAB PO (09:44)
[2023-06-13] MEDS: Divalproex Sodium 500 MG TABLET.DR PO (09:44)
[2023-06-13] MEDS: QUEtiapine Fumarate 25 MG TABLET PO (09:44)
[2023-06-13] MEDS: levETIRAcetam 1,000 MG TABLET 1000 MG PO (09:44)
--- NOTE | 2023-06-13 09:45 | P.PNIM_ITS ---
Subjective Subjective Date of Service: 06/13/23 Interval History: c/o N/V c/o cough down to 1L O2 via NC Review of Systems Review of Systems: Yes all other systems are reviewed and are negative Physical Exam 2 Vital Signs: Vital Signs: Last Vital Signs Temp 96.9 F 06/13/23 07:10 Pulse 74 06/13/23 07:41 Resp 20 06/13/23 07:41 BP 125/73 06/13/23 07:10 Pulse Ox 92 06/13/23 07:10 O2 Del Method BiPAP 06/13/23 07:10 O2 Flow Rate 1 06/13/23 04:00 Oxygen Flow Rate 4 06/09/23 08:56 BMI result Body Mass Index 37.3 Gen: in no acute distress HEENT: sclera anicteric, moist mucus membranes Neck: supple Lungs: diminished Heart: regular rate and rhythm, no murmurs Abd: soft, non-tender, non-distended Ext: no edema Skin: warm/well-perfused Neuro: alert and oriented to person/place/year/month, chronic RUE weakness Psych: appropriate affect Objective Data Active Medications Acetaminophen (Acetaminophen 325 Mg Tablet) 650 mg PO Q6H PRN PRN Reason: Fever Or Pain Last Admin: 06/10/23 21:01 Dose: 650 mg Documented By: EDDIE Albuterol Sulfate (Albuterol Sulfate 90 Mcg 8 Gm Inhaler) 2 puff INHALE Q6H PRN PRN Reason: Wheezing Albuterol/Ipratropium (Albuterol/Iprat 2.5/0.5mg 3 Ml Ampul.Neb) 3 ml INHALE RQ4H WHILE AWAKE ON LICENSE OF [facility] Last Admin: 06/13/23 07:41 Dose: 3 ml Documented By: LUBA Apixaban (Apixaban 5 Mg Tablet) 5 mg PO BID [facility] OF [facility] Last Admin: 06/13/23 09:43 Dose: 5 mg Documented By: TOM Artificial Tears (Artificial Tears 15 Ml Drops) 1 drop EYE-BOTH Q6H PRN PRN Reason: Dry Eye(S) Diphenhydramine HCl (Diphenhydramine Hcl 25 Mg Capsule) 25 mg PO BEDTIME PRN PRN Reason: Sleep Last Admin: 06/12/23 21:18 Dose: 25 mg Documented By: MARTIN Divalproex Sodium (Divalproex Sodium 500 Mg Tablet.Dr) 500 mg PO BID [facility] Last Admin: 06/13/23 09:44 Dose: 500 mg Documented By: TOM Doxycycline Monohydrate (Doxycycline Monohydrate 100 Mg Capsule) 100 mg PO Q12H [facility] Last Admin: 06/13/23 09:44 Dose: 100 mg Documented By: TOM Escitalopram Oxalate (Escitalopram Oxalate 5 Mg Tablet) 5 mg PO DAILY [facility] Last Admin: 06/13/23 09:43 Dose: 5 mg Documented By: TOM Fluticasone/Vilanterol (Fluticasone/Vilanterol 100/25 Blst.W.Dev) 1 puff INHALE RDAILY [facility] Last Admin: 06/13/23 07:41 Dose: 1 puff Documented By: LUBA Guaifenesin (Guaifenesin 100 Mg/5 Ml Liquid) 15 ml PO Q6H PRN PRN Reason: Cough Last Admin: 06/10/23 20:59 Dose: 15 ml Documented By: EDDIE Ceftriaxone Sodium 1 gm/ (Sodium Chloride) 50 mls @ 100 mls/hr IV Q24H [facility] Last Infusion: 06/12/23 19:12 Dose: Infused Documented By: TOM Vancomycin HCl 1,500 mg/ (Sodium Chloride) 500 mls @ 333.333 mls/hr IV Q12H [facility] Last Infusion: 06/12/23 21:54 Dose: Infused Documented By: MARTIN Levetiracetam (Levetiracetam 1,000 Mg Tablet) 1,000 mg PO BID [facility] Last Admin: 06/13/23 09:44 Dose: 1,000 mg Documented By: TOM Lorazepam (Lorazepam 2 Mg/Ml Vial) 2 mg IM DAILY PRN PRN Reason: Seizure Activity Last Admin: 06/10/23 09:50 Dose: 2 mg Documented By: MICHELLE Melatonin (Melatonin 3 Mg Tablet) 6 mg PO BEDTIME [facility] Last Admin: 06/12/23 21:12 Dose: 6 mg Documented By: MARTIN Multivitamins/Vitamin C (Multivitamin Tablet) 1 tab PO DAILY [facility] Last Admin: 06/13/23 09:44 Dose: 1 tab Documented By: TOM Olanzapine (Olanzapine 10 Mg Tablet) 10 mg PO BEDTIME [facility] Last Admin: 06/12/23 21:14 Dose: 10 mg Documented By: MARTIN Ondansetron HCl (Ondansetron Hcl 4 Mg/2 Ml Vial) 4 mg IVPUSH Q4H PRN PRN Reason: nause/avomting Last Admin: 06/13/23 08:31 Dose: 4 mg Documented By: TOM Pharmacy Consult (Consult Rx Vancomycin Dosing) 1 each MISCELLANE DAILY PRN PRN Reason: Consult order Quetiapine Fumarate (Quetiapine Fumarate 25 Mg Tablet) 25 mg PO DAILY [facility] Last Admin: 06/13/23 09:44 Dose: 25 mg Documented By: TOM Senna (Sennosides 8.6 Mg Tablet) 8.6 mg PO DAILY PRN PRN Reason: Constipation Sodium Chloride (0.9 % Sodium Chloride Flush 3 Ml Syringe) 3 ml IVFLUSH QSHIFT ON [facility] Last Admin: 06/13/23 08:31 Dose: 3 ml Documented By: TOM Labs 06/12/23 10:02 06/13/23 06:13 Labs: Laboratory Results - last 24 hr 06/12/23 06/12/23 06/13/23 10:02 18:39 06:13 MCV 92.9 MCH 30.0 MCHC 32.3 RDW 12.8 Plt Count 149 L MPV 9.4 Absolute Nucleated RBC 0.000 Nucleated RBC % (auto) 0.0 Hold Purple Top SEE NOTE Estim Creat Clear Calc 129.9 129.9 Estimated GFR > 60 > 60 Procalcitonin 0.04 Random Vancomycin 12.9 L Microbiology Microbiology Results: Microbiology 06/09/23 10:58 Blood Culture - Final Blood - Venous Staphylococcus epidermidis Coag negative Staphylococcus 06/09/23 10:38 Blood Culture - Final Blood - Venous Staphylococcus epidermidis Assessment and Plan (1) Aspiration pneumonia: Status: Acute Plan d5 37yo M LTC resident ([facility] in [place]) with TBI, hx seizures/pseudoseizures, 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, PTSD, NEREYDA brought in after multiple episodes of seizure-like activity though more likely pseudoseizures however, found to be hypoxic with RML/RLL infiltrates subsequently found to have staphylococcal bacteremia AHRF due to PNA - wean O2 as tolerated - ceftriaxone + doxycycline 06/09- - PCT low, RPP negative - per prior [facility] NURSE evaluation, NDD3 solids + thin liquids bacteremia, not - both BCx growing Staph epi, likely contaminant; d/c vancomycin, cancel TTE filling defect in trachea/L bronchus - per Pulm not a foreign body, but rather posterior trachealis muscle keny into the airway breakthrough seizures vs more likely PNES - continue Keppra + Depakote, prn lorazepam, Neurology consulted, EEG pending mild rhabdo - IV NS d/c'ed once CPK < 1000 hyperNa, mild - resolved JUJU - CPAP at night anticoagulation, chronic - on Eliquis, unclear indication, per Dr Mcmillan at [facility] continue; he is looking into the indication chronic lung disease - Advair, prn albuterol mood disorder - olanzapine, quetiapine, citalopram, Depakote VTE ppx - apixaban code - full dispo - eventual return to LTC In my clinical judgment, the patient requires continued inpatient hospitalization for the following reasons: hypoxia, IV ABX Total time managing care of this patient today: 35 minutes. Quality Stroke Does the patient have a stroke diagnosis?: No VTE Prior VTE?: No VTE Risk Level:: Medical - moderate - high VTE Device Contraindication: N/A - Device Ordered VTE Drug Contraindication: N/A - Med Ordered
[2023-06-13] MEDS: cefuroxime axetiL 500 MG TABLET PO (10:35)
[2023-06-13 11:45] LABS: MRSA Nasal PCR NEGATIVE (Negative); SA Nasal PCR NEGATIVE (Negative)
--- NOTE | 2023-06-13 12:20 | MHC.CM.PN ---
Pt has been medically cleared for DC, he will return to [facility] via ambulance.
--- NOTE | 2023-06-13 12:46 | P.DS_ITS ---
DS: Providers Provider Date of Service: 06/13/23 Date of admission: 06/09/23 18:28 Date of discharge: 06/13/23 Primary care physician: Antonio Mcmillan DO Consults: 06/09/23 18:22 Consult to Neurology Routine Consulting Provider: [facility] Reason for consultation: breakthrough siezures Consult to Pulmonology Routine Consulting Provider: [facility] Pulmonology Services Reason for consultation: arge elongated/tubular filling defect in trachea extending into the left ma 06/12/23 10:27 Consult to Infectious Diseases Routine Consulting Provider: [facility] Infectious Disease Reason for consultation: Staphylocokkal bactermeia DS: Diagnosis Discharge Diagnosis (1) Acute and chronic respiratory failure with hypoxia: Status: Acute (2) Psychogenic nonepileptic seizure: Status: Acute (3) Rhabdomyolysis: Status: Acute (4) Hypernatremia: Status: Acute (5) Pneumonia: Status: Acute DS: Summary Hospital Course Hospital Course: from my admission H+P, 06/09/23: 37yo M with TBI, hx seizures/pseudoseizures, 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 Per ED, partial seizures witnessed by ED; per pt, generalized shaking but further corroborative history not availabe at this time. Noted by EMS to be hypoxic in the low 80s. Pt poor historian but does endorse coubgh. No fever. No chest pain. Currently awake, alert, oriented, talking. Found to have RML/RLL PNA on CTA. Also a large tubular filling defect in the trachea extending in to the L mainstem bronchus. 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 He was found to be hypoxic with RML/RLL infiltrates and was admitted to the hospital. Hospital course by problem: AHRF due to PNA - PCT low, respiratory pathogen panel negative. O2 weaned to prior baseline of 2L via NC. Treated with 3 days of ceftriaxone + doxycycline IV and discharged on 4 days of cefuroxime + doxycycline PO. Per prior WEDDING DAY COORDINATOR evaluation, to take NDD3 solids + thin liquids. bacteremia, not - Initially concern for pathogenic staphylococcal bacteremia, so vancomycin was started IV; however, both BCx grew Staph epidermidis, a contaminant, so vancomycin was discontinued. filling defect in trachea/L bronchus - Per Pulm not a foreign body, but rather posterior trachealis muscle con tracting into the airway breakthrough seizures vs more likely PNES - Continue Keppra + Depakote, prn lorazepam, Neurology consulted. EEG was unremarkable. 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 mild rhabdomyolysis - Given IV NS until CPK was <1000. hyperNa, mild - Resolved He was discharged back to [facility] for long-term care. Time Attestation Total time managing care of this patient today: 35 mintues. Discharge coordination time: Greater than 30 minutes Quality: Safe Use of Opioids Does Pt have an Active Cancer Diagnosis on the Problem List?: No Quality: Stroke Does the patient have a stroke diagnosis?: No Physical Exam Vital Signs: Vital Signs: Last Vital Signs Temp 97.7 F 06/13/23 12:00 Pulse 87 06/13/23 12:00 Resp 20 06/13/23 12:00 BP 158/96 H 06/13/23 12:00 Pulse Ox 99 06/13/23 12:00 O2 Del Method Nasal Cannula 06/13/23 12:00 O2 Flow Rate 2 06/13/23 12:00 Oxygen Flow Rate 4 06/09/23 08:56 BMI result Body Mass Index 37.3 Gen: in no acute distress HEENT: sclera anicteric, moist mucus membranes Neck: supple Lungs: diminished Heart: regular rate and rhythm, no murmurs Abd: soft, non-tender, non-distended Ext: no edema Skin: warm/well-perfused Neuro: alert and oriented to person/place/year/month, chronic RUE weakness Psych: appropriate affect DS: Data Data Completed and Pending Completed studies during hospitalization [Text1]: Laboratory Results WBC 4.0 X10*3/uL (4.8-10.8) L 06/12/23 10:02 RBC 4.64 X10*6/uL (4.60-5.80) 06/12/23 10:02 Hgb 13.9 g/dl (14.0-18.0) L 06/12/23 10:02 Hct 43.1 % (42.0-52.0) 06/12/23 10:02 MCV 92.9 fL (80.0-98.0) 06/12/23 10:02 MCH 30.0 pg (27.0-33.0) 06/12/23 10:02 MCHC 32.3 g/dl (31.0-36.0) 06/12/23 10:02 RDW 12.8 % (11.0-16.0) 06/12/23 10:02 Plt Count 149 X10*3/uL (160-400) L 06/12/23 10:02 MPV 9.4 fL (9.4-12.4) 06/12/23 10:02 Immature Gran % (Auto) 0.4 % (0.0-0.4) 06/09/23 11:14 Neut % (Auto) 53.1 % (45-73) 06/09/23 11:14 Lymph % (Auto) 37.6 % (20-40) 06/09/23 11:14 [place] % (Auto) 7.8 % (2-11) 06/09/23 11:14 Eos % (Auto) 0.9 % (0-4) 06/09/23 11:14 Baso % (Auto) 0.2 % (0-2) 06/09/23 11:14 Lymph # (Auto) 2.1 X10*3/uL (1.2-4.9) 06/09/23 11:14 [place] # (Auto) 0.4 X10*3/uL (0.1-1.2) 06/09/23 11:14 Eos # (Auto) 0.1 X10*3/uL (0.0-0.4) 06/09/23 11:14 Baso # (Auto) 0.0 X10*3/uL (0.0-0.2) 06/09/23 11:14 Abs Immat Gran (auto) 0.02 X10*3/uL (0.00-0.03) 06/09/23 11:14 Absolute Neuts (auto) 2.9 x10*3/uL (2.0-8.3) 06/09/23 11:14 Absolute Nucleated RBC 0.000 X10*3/uL (0.0-0.012) 06/12/23 10:02 Nucleated RBC % (auto) 0.0 /100WBC (0.0-0.2) 06/12/23 10:02 Hold Purple Top SEE NOTE 06/13/23 06:13 PT 12.2 SEC (11.1-13.3) 06/09/23 11:14 INR 1.0 (0.9-1.1) 06/09/23 11:14 D-Dimer High Sensitivty < 150 NG/ML 06/09/23 11:14 VBG pH 7.34 (7.32-7.43) 06/09/23 11:18 VBG pCO2 66 mmHg 06/09/23 11:18 VBG pO2 121 mmHg 06/09/23 11:18 VBG HCO3 36 mmol/L (22-26) H 06/09/23 11:18 VBG O2 Saturation 100.0 % 06/09/23 11:18 VBG Base Excess 8.1 mmol/L 06/09/23 11:18 Sodium 144 mmol/L (135-145) 06/11/23 07:56 Potassium 4.4 mmol/L (3.3-5.1) 06/11/23 07:56 Chloride 104 mmol/L (96-108) 06/11/23 07:56 Carbon Dioxide 33 mmol/L (22-29) H 06/11/23 07:56 Anion Gap 11 (12-20) L 06/11/23 07:56 BUN 6 mg/dL (9-16) L 06/11/23 07:56 Creatinine 0.87 mg/dL (0.5-1.4) 06/13/23 06:13 Estim Creat Clear Calc 129.9 06/13/23 06:13 Estimated GFR > 60 06/13/23 06:13 Random Glucose 75 mg/dL (60-115) 06/11/23 07:56 Lactic Acid 1.1 mmol/L (0.5-2.0) 06/09/23 10:39 Calcium 9.1 mg/dL (8.4-10.2) 06/11/23 07:56 Magnesium 1.8 mg/dL (1.6-2.6) 06/09/23 11:14 Total Bilirubin 0.3 mg/dL (0.0-1.0) 06/09/23 11:14 AST 37 U/L (5-37) 06/09/23 11:14 ALT 47 U/L (0-40) H 06/09/23 11:14 Alkaline Phosphatase 52 U/L (39-117) 06/09/23 11:14 Total Creatine Kinase 967 U/L (38-174) H 06/11/23 07:56 B-Natriuretic Peptide < 10 pg/mL (<100) 06/09/23 11:14 Total Protein 6.8 g/dL (6.5-8.0) 06/09/23 11:14 Albumin 3.9 g/dL (3.5-5.0) 06/09/23 11:14 Lipase 52 U/L (8-78) 06/09/23 11:14 Procalcitonin 0.04 ng/mL 06/12/23 10:02 Urine Color Yellow 06/09/23 10:04 Urine Appearance Clear 06/09/23 10:04 Urine pH 6.0 (5.0-9.0) 06/09/23 10:04 Ur Specific [place] 1.020 (1.005-1.025) 06/09/23 10:04 Urine Protein Negative mg/dL (Neg-Trace) 06/09/23 10:04 Urine Glucose (UA) Negative mg/dL (Negative) 06/09/23 10:04 Urine Ketones Negative mg/dL (Negative) 06/09/23 10:04 Urine Blood Small (1+) (Negative) H 06/09/23 10:04 Urine Nitrite Negative (Negative) 06/09/23 10:04 Ur Leukocyte Esterase Negative (Negative) 06/09/23 10:04 Urine RBC 11-20 /HPF (0-2) H 06/09/23 10:04 Urine WBC 0-5 /HPF (0-5) 06/09/23 10:04 Ur Squamous Epith Cells 0-2 /HPF (0-2) 06/09/23 10:04 Urine Bacteria None Seen (None Seen) 06/09/23 10:04 Hyaline Casts 0-2 /LPF (0-2) 06/09/23 10:04 Nasal Screen MRSA (PCR) NEGATIVE (Negative) 06/13/23 Unknown Nasal S. aureus Screen NEGATIVE (Negative) 06/13/23 Unknown Nasal MRSA/S.aureus Interp SEE NOTE 06/13/23 Unknown Random Vancomycin 12.9 mcg/mL (15-20) L 06/12/23 18:39 Salicylates < 5.0 mg/dL (15-30) L 06/09/23 11:14 Urine Opiates Screen Not Detected (Not Detect) 06/09/23 10:04 Urine Fentanyl Screen Not Detected (Not Detect) 06/09/23 10:04 Acetaminophen < 3 mcg/mL (<30) 06/09/23 11:14 Ur Barbiturates Screen Not Detected (Not Detect) 06/09/23 10:04 Valproic Acid 48.7 mcg/mL (50.0-100.0) L 06/11/23 07:56 Ur Phencyclidine Scrn Not Detected (Not Detect) 06/09/23 10:04 Ur Amphetamines Screen Not Detected (Not Detect) 06/09/23 10:04 U Benzodiazepines Scrn Not Detected (Not Detect) 06/09/23 10:04 Urine Cocaine Screen Not Detected (Not Detect) 06/09/23 10:04 U Marijuana (THC) Screen Not Detected (Not Detect) 06/09/23 10:04 Respiratory Panel Lee See Note 06/10/23 14:10 Adenovirus (Rapid PCR) Not Detected (Not Detect.) 06/10/23 14:10 B.pert (TEM-PCR) Not Detected (Not Detect.) 06/10/23 14:10 B.parapertussis DNA PCR Not Detected (Not Detect.) 06/10/23 14:10 C. pneumoniae DNA (PCR) Not Detected (Not Detect.) 06/10/23 14:10 Coronavirus OC43 (PCR) Not Detected (Not Detect.) 06/10/23 14:10 Coronavirus HKU1 (PCR) Not Detected (Not Detect.) 06/10/23 14:10 Coronavirus 229E (PCR) Not Detected (Not Detect.) 06/10/23 14:10 COVID-19 (BERT) Negative (Negative) 06/09/23 10:49 COVID-19 Clin Com See Note 06/09/23 10:49 Coronavirus NL63 (PCR) Not Detected (Not Detect.) 06/10/23 14:10 HIV 1&2 Ab/P24 Ag 4thGn Nonreactive (Nonreactive) 06/13/23 06:13 Human Metapneumovir PCR Not Detected (Not Detect.) 06/10/23 14:10 Influenza A (RT-PCR) Not Detected (Not Detect.) 06/10/23 14:10 Influenza B (RT-PCR) Not Detected (Not Detect.) 06/10/23 14:10 M. pneumoniae (PCR) Not Detected (Not Detect.) 06/10/23 14:10 Parainfluenza 1 (PCR) Not Detected (Not Detect.) 06/10/23 14:10 Parainfluenza 2 (PCR) Not Detected (Not Detect.) 06/10/23 14:10 Parainfluenza 3 (PCR) Not Detected (Not Detect.) 06/10/23 14:10 Parainfluenza 4 (PCR) Not Detected (Not Detect.) 06/10/23 14:10 RSV (PCR) Not Detected (Not Detect.) 06/10/23 14:10 Entero/Rhino (PCR) Not Detected (Not Detect.) 06/10/23 14:10 SARS-CoV-2 RNA (RT-PCR) Not Detected (Not Detect.) 06/10/23 14:10 Impressions Chest X-Ray 06/09/23 09:05 IMPRESSION: Increasing right basilar atelectasis. Possible small right pleural effusion. Chest CTA 06/09/23 15:37 IMPRESSION: Suboptimal contrast bolus timing. No central pulmonary embolus. There is a large elongated/tubular filling defect in trachea extending into the left mainstem bronchus. Right middle lobe and right lower lobe consolidation with air bronchograms. Pneumonia may be considered. Marked elevation of the right hemidiaphragm approximately 10 cm above the left hemidiaphragm with significant corresponding volume loss in the right hemithorax. Hepatic steatosis. VTE: indeterminate Head CT 06/09/23 15:37 IMPRESSION: 1. There are no acute bleeds or territorial infarcts. No masses are demonstrated. 2. There is moderate prominence of the lateral, 3rd and 4th ventricles without commensurate sulcal prominence. There is asymmetric prominence of the temporal horn of the right lateral ventricle. There are postoperative changes from occipitocervical fusion. Correlate with surgical history and these findings can be compared if prior studies become available. Discharge Plan Discharge Anticipated Discharge Date/Time: 06/13/23 12:42 Patient Disposition: Xfer SNF Discharge Diagnosis: hypoxia due to pneumonia likely PNES Referrals: [facility] [Outside] - [facility] Week [facility] [Outside] - 1 Week Antonio Mcmillan DO [Primary Care Provider] - 1 Week Discharge Medications: New doxycycline monohydrate 100 mg Capsule 100 mg PO Q12H Qty: 8 0RF cefuroxime axetil 500 mg Tablet 500 mg PO Q12H Qty: 8 0RF Continued polyvinyl alcohol 1.4 % Drops 1 drp OPHTHALMIC (EYE) Q6H PRN (Reason: Dry Eye(S)) guaifenesin 100 mg/5 mL Liquid 300 mg PO Q6H PRN (Reason: Cough) melatonin 5 mg Tablet 5 mg PO BEDTIME multivitamin Tablet 1 tab PO DAILY quetiapine 25 mg Tablet 25 mg PO DAILY sennosides [senna] 8.6 mg Tablet 8.6 mg PO DAILY PRN (Reason: Constipation) acetaminophen 325 mg Tablet 650 mg PO Q6H PRN (Reason: Fever Or Pain) citalopram 10 mg Tablet 10 mg PO DAILY ondansetron HCl 4 mg Tablet 4 mg PO Q8H PRN (Reason: Nausea And Vomiting) olanzapine 10 mg Tablet 10 mg PO BEDTIME divalproex [Depakote] 500 mg Tablet,Delayed Release (Dr/Ec) 500 mg PO BID diphenhydramine HCl 25 mg Tablet 25 mg PO BEDTIME PRN (Reason: Sleep) albuterol sulfate 90 mcg/actuation Hfa Aerosol Inhaler 2 puff INHALATION Q6H PRN (Reason: Wheezing) Eliquis 5 mg Tablet 5 mg PO BID levetiracetam 1,000 mg Tablet 1,000 mg PO BID Qty: 60 0RF fluticasone propion-salmeterol [Advair Diskus] 250-50 mcg/dose Blister With Device 1 inh INHALATION BID lorazepam 2 mg/mL Solution 2 mg IM DAILY PRN (Reason: Seizure Activity) Rx Instructions: until hemodynamically stable Discontinued ibuprofen 600 mg Tablet 600 mg PO Q6H PRN (Reason: Pain) Discharge Orders: Discharge Order (Routine); Ordered 06/13/23 Ordered By: Sajan Mckoy Diet: Advance to usual diet Activity on Discharge: As tolerated Stand Alone Forms: Patient Portal Discharge page Care Plan Goals: recovery from pneumonia Health Concerns: hypoxia due to pneumonia likely PNES Plan of Treatment: cefuroxime 500 mg twice daily PLUS doxycycline 100 mg twice daily for 4 days wean O2 as tolerated, was on 2L prior to admission Assessment: See Discharge Summary.
--- NOTE | 2023-06-13 13:56 | MHC.SL.SWA ---
Speech Pathologist Impression: Risk of aspiration, oral phase dysphagia Risk of Aspiration Due to: Neurological Condition History of Pneumonia Dysphasia Diet Status: No changes at this time Liquid Consistency and Strategies for Safe Swallow: Liquid Intake Recommendation: Thin Liquid Intake Strategies: Small Sips Solid Food Consistency: Dietary Recommendations: Chopped/Advanced (NDD3) Additional Modifications to Solid Foods: Recommend pt continue w/ CHOPPED/ADVANCED (NDD3) diet as ordered by MD, THIN liquids, pills WHOLE in PUREE or LIQUID per pt's preference/tolerance. Oral Medication Intake: Whole with Puree Please contact the pharmacy regarding appropriate crushable or liquid drug formulations that are available whenever modified delivery is recommended. Compensatory Strategies and Precautions to be Taken for Safe Swallow: Sitting Upright (90 deg) Double Swallow Small Bites and Sips Alternate Liquids/Solids Rate of Ingestion Change Avoid Specific Foods Supervision While Eating and Drinking for Safe Swallow: Intermittent Supervision Foods to Avoid: Hard, dry, or sticky foods Swallowing Recommended Treatments: Compens. Strategy Educat. Recommendation for Speech: Inpatient Speech Therapy Comment: Frequency/Duration: PRN Date Range for Service Req: Timeline to reassess: In Tube Conversion Technician Clinican/Clinical Fellow: No Supervisory Statement: I have reviewed and agree with the student/clinical fellow's documentation: N/A Speech Language Pathologist: Keerthi Mcnulty M.A., CCC-ON SITE COORDINATOR
[2023-06-14 22:38] LABS: Levetiracetam Keppra 21.8 mcg/mL (6.0-46.0)
== END 2023-06-13 18:13 | disposition skilled nursing facility (03) | DRG 53 ==
LOC: HO.ED 16:37 → HO.EDOVER 18:51 → HO.IMC 19:43
PROVIDERS: Internal Medicine; Physician Assistant; Admitting Provider Family Medicine; Emergency Provider Emergency Medicine Emergency Medical Services; PCP Hospitalist; Visit Provider Family Medicine
DX: G40.909 Epilepsy, unspecified, not intractable, without status epilepticus (principal); J96.01 Acute respiratory failure with hypoxia; J69.0 Pneumonitis due to inhalation of food and vomit; G93.49 Other encephalopathy; F43.10 Post-traumatic stress disorder, unspecified; F41.1 Generalized anxiety disorder; G47.33 Obstructive sleep apnea (adult) (pediatric); E87.0 Hyperosmolality and hypernatremia; J45.40 Moderate persistent asthma, uncomplicated; M62.82 Rhabdomyolysis; Z20.822 Contact with and (suspected) exposure to COVID-19; Z79.01 Long term (current) use of anticoagulants; Z79.51 Long term (current) use of inhaled steroids; Z79.899 Other long term (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
CPT/HCPCS: 36415; 70450; 71045; 71275; 80048; 80053; 80143; 80164; 80177; 80179; 80202; 80307; 81001; 82550; 82565; 82803; 83605; 83690; 83735; 83880; 84145; 85025; 85027; 85379; 85610; 87040; 87077; 87147; 87186; 87205; 87389; 87633; 87635; 87640; 87641; 92610; 94660; 95816; 99285; J0456; J0692; J0696; J1953; J2060; J2405; J3370; J3371; Q9957; Q9967

== ENCOUNTER → 2023-06-09 09:20 | Outpatient (BNV) | payer MEDICAID, SELFPAY | PROVIDERS: Emergency Provider Emergency Medicine Emergency Medical Services; PCP Hospitalist; Visit Provider Family Medicine | DX: J96.21 Acute and chronic respiratory failure with hypoxia (principal); J69.0 Pneumonitis due to inhalation of food and vomit; F44.5 Conversion disorder with seizures or convulsions; M62.82 Rhabdomyolysis; E87.0 Hyperosmolality and hypernatremia | CPT/HCPCS: 99223; 99232; 99239 ==

== ENCOUNTER → 2023-06-09 18:28 | Outpatient (BNV) | payer MEDICAID, SELFPAY | PROVIDERS: Admitting Provider Family Medicine; Emergency Provider Emergency Medicine Emergency Medical Services; PCP Hospitalist; Visit Provider Internal Medicine | DX: G40.909 Epilepsy, unspecified, not intractable, without status epilepticus (principal); J69.0 Pneumonitis due to inhalation of food and vomit; R09.02 Hypoxemia | CPT/HCPCS: 99222 ==

== ENCOUNTER → 2023-06-09 18:28 | Outpatient (BNV) | payer MEDICAID, SELFPAY | PROVIDERS: Admitting Provider Family Medicine; Emergency Provider Emergency Medicine Emergency Medical Services; PCP Hospitalist; Visit Provider Hospitalist | DX: J69.0 Pneumonitis due to inhalation of food and vomit (principal); J96.01 Acute respiratory failure with hypoxia; J45.40 Moderate persistent asthma, uncomplicated | CPT/HCPCS: 99223 ==

== ENCOUNTER 2023-06-22 06:59 | Emergency (ER) | payer MEDICAID, SELFPAY ==
--- NOTE | 2023-06-22 | ECG_ITS ---
Test Reason : SEIZURES Blood Pressure : / mmHG Vent. Rate : 089 BPM Atrial Rate : 089 BPM P-R Int : 164 ms QRS Dur : 074 ms QT Int : 350 ms P-R-T Axes : 047 063 013 degrees QTc Int : 425 ms Normal sinus rhythm Nonspecific T wave abnormality Abnormal ECG When compared with ECG of 07-JUN-2023 20:30, No significant change was found Referred By: Generic ED Physician Electronically Signed By:SAGAR KEEN MD
[2023-06-22 07:06] VITALS: BP 111/63; BP 125/89; PULSE 90; PULSE 99; RESP 16; TEMP 37.1; O2SAT 96; O2SAT 97; BMI 32.9
--- NOTE | 2023-06-22 07:24 | ED.SEIZURE ---
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 Patient states that he was sent to the hospital for seizures. According to nursing notes the patient had 6 tonic clonic seizure since yesterday and had 3 episodes noted by EMS on the way to the hospital. Patient was apparently given Ativan 1 mg orally at the nursing facility prior to transport. In did review the nursing note sent in from the patient's care facility. States the patient was sent for seizures which started on 06/22/2023 which have gotten worse. Patient's fci vital signs revealed an elevated heart rate of 106, elevated respiratory rate of 20 an O2 saturation of 95% on oxygen via nasal cannula. I did review the patient's discharge note from 06/13/2023 (patient was admitted 06/09/2023). Discharge diagnosis was acute on chronic respiratory failure with hypoxia, psychogenic nonepileptic seizures, rhabdomyolysis, hypernatremia, pneumonia. Patient had a right middle lobe/right lower lobe pneumonia-patient was treated inpatient with ceftriaxone and doxycycline IV and discharged with 4 dose cefuroxime and doxycycline. Patient had a neurology con has she EEG was unremarkable neurology impression was that these shaking episodes were most likely psychogenic nonepileptic seizures. He was continued on Keppra Seizure History: Yes Related Data Home Medications Medication Instructions Recorded Confirmed acetaminophen 325 mg tablet 650 mg PO Q6H PRN Fever Or Pain 04/15/23 06/09/23 albuterol sulfate 90 mcg/actuation 2 puff inhalation Q6H PRN Wheezing 04/15/23 06/09/23 aerosol inhaler apixaban 5 mg tablet (Eliquis) 5 mg PO BID 04/15/23 06/09/23 citalopram 10 mg tablet 10 mg PO DAILY 04/15/23 06/09/23 diphenhydramine HCl 25 mg tablet 25 mg PO BEDTIME PRN Sleep 04/15/23 06/09/23 divalproex 500 mg tablet,delayed 500 mg PO BID 04/15/23 06/09/23 release (Depakote) multivitamin 1 tab PO DAILY 04/15/23 06/09/23 olanzapine 10 mg tablet 10 mg PO BEDTIME 04/15/23 06/09/23 ondansetron HCl 4 mg tablet 4 mg PO Q8H PRN Nausea And Vomiting 04/15/23 06/09/23 quetiapine 25 mg tablet 25 mg PO DAILY 04/15/23 06/09/23 sennosides 8.6 mg tablet (senna) 8.6 mg PO DAILY PRN Constipation 04/15/23 06/09/23 guaifenesin 100 mg/5 mL oral liquid 300 mg PO Q6H PRN Cough 05/03/23 06/09/23 melatonin 5 mg tablet 5 mg PO BEDTIME 05/03/23 06/09/23 polyvinyl alcohol 1.4 % eye drops 1 drp ophthalmic (eye) Q6H PRN Dry 05/03/23 06/09/23 Eye(S) fluticasone 250 mcg-salmeterol 50 1 inh inhalation BID 06/09/23 06/09/23 mcg/dose blistr powdr for inhalation (Advair Diskus) lorazepam 2 mg/mL injection 2 mg IM DAILY PRN Seizure Activity 06/09/23 06/09/23 solution Previous Rx's Medication Instructions Recorded levetiracetam 1,000 mg tablet 1,000 mg PO BID #60 tabs 04/20/23 cefuroxime axetil 500 mg tablet 500 mg PO Q12H #8 tabs 06/13/23 doxycycline monohydrate 100 mg 100 mg PO Q12H #8 caps 06/13/23 capsule Allergies Allergy/AdvReac Type Severity Reaction Status Date / Time amoxicillin Allergy Anaphylaxis Verified 06/22/23 07:10 sertraline [From Zoloft] Allergy Anaphylaxis Verified 06/22/23 07:10 Review of Systems Review of Systems: Yes all other systems are reviewed and are negative [facility] Past Medical History [facility] Narrative: Social history: Patient is a resident of [facility] [place] Medical History (Updated 06/22/23 @ 10:19 by Naseem Méndez MD) Epileptic seizure Asthma Acute hypoxic respiratory failure Pneumonia Psychogenic nonepileptic seizure Seizure disorder Chronic anticoagulation TBI (traumatic brain injury) Social History Social History Household Members: Other Housing: Group Home Do you presently have visiting nurse or other home services: No Alcohol intake: never Patient Tobacco Use Status: Never used Tobacco Smoked in Last 30 Days: No e-Cigarette/Vaping Use: Never Used Use of substances other than those prescribed or required for medical reasons: No Advance Directives: No service: No Physical Exam Vital Signs: Vital Signs: Last Vital Signs Temp 98.8 F 06/22/23 09:42 Pulse 98 06/22/23 09:42 Resp 15 06/22/23 09:42 BP 130/81 06/22/23 09:42 Pulse Ox 95 06/22/23 09:42 O2 Del Method Nasal Cannula 06/22/23 07:06 Oxygen Flow Rate 3 06/22/23 07:06 BMI result Body Mass Index 32.9 Medications Administered Discontinued Medications Generic Name Dose Route Start Last Admin Trade Name Freq PRN Reason Stop Dose Admin Lorazepam 1 mg 06/22/23 07:35 06/22/23 08:26 Lorazepam 1 Mg Tablet PO 06/22/23 07:36 1 mg ONCE ONE Administration Medical Decision Making Medical Decision Making MDM Narrative: 37yo M with TBI, hx seizures/pseudoseizures, 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 Patient has reportedly had 6 seizures since yesterday and paramedics witness 3 shaking episodes was they described as seizures however the patient was awake during these episodes. Patient was given Ativan 1 mg orally prior to transport. Patient was recently hospital 06/09 until for pneumonia with hypoxia and during that hospitalization he was noted to have shaking events which were determined to be psychogenic pseudoseizures by Neurology (had a negative EEG). Patient's vital signs were normal O2 saturation was 97% on 3 L via nasal cannula-patient is on chronic O2. Physical examination was unremarkable except for right upper extremity paralysis which the patient states is old Following evaluation was ordered: CBC, CMP, CK, lactic acid, valproic acid. Patient was treated with Ativan 1 mg orally. 10:17 Patient had a witnessed shaking event here in the emergency department, he was able to talk through the event and answer questions, suggest that this is a psychogenic non electrical pseudo-seizure. We were unable to draw blood on the patient, I discussed doing a femoral vein groin stick with the patient and he refused and he states he wants to go back to the nursing facility 11:10 I did discuss this with his physician at [facility], Dr. Antonio Mcmillan and the patient will be discharged back to his care facility Differential Diagnosis Differential Diagnoses: The differential diagnosis associated with the presentation includes Differential diagnosis includes was not limited to seizures, pseudoseizures, anxiety, electrolyte abnormalities, anemia, rhabdomyolysis Lab Data Labs: Lab Results 06/22/23 Range/Units 10:04 Lactic Acid 1.5 (0.5-2.0) mmol/L Total Creatine Kinase 379 H (38-174) U/L Discharge Plan Discharge Clinical Impression: Psychogenic nonepileptic seizure Patient Disposition: Home, Self-Care Additional Instructions: At this time, your shaking events are consistent with non electrical psychogenic pseudoseizures. I did discuss your episodes with Dr. Antonio Mcmillan and he agrees that you can go back to [facility]. Continue taking medications as prescribed Follow-up with your doctor in 2 days. Please return to the emergency department if your symptoms get worse or if you develop any symptoms that are concerning to you. Prescriptions: No Action polyvinyl alcohol 1.4 % Drops 1 drp OPHTHALMIC (EYE) Q6H PRN (Reason: Dry Eye(S)) guaifenesin 100 mg/5 mL Liquid 300 mg PO Q6H PRN (Reason: Cough) melatonin 5 mg Tablet 5 mg PO BEDTIME multivitamin Tablet 1 tab PO DAILY quetiapine 25 mg Tablet 25 mg PO DAILY sennosides [senna] 8.6 mg Tablet 8.6 mg PO DAILY PRN (Reason: Constipation) acetaminophen 325 mg Tablet 650 mg PO Q6H PRN (Reason: Fever Or Pain) citalopram 10 mg Tablet 10 mg PO DAILY ondansetron HCl 4 mg Tablet 4 mg PO Q8H PRN (Reason: Nausea And Vomiting) olanzapine 10 mg Tablet 10 mg PO BEDTIME divalproex [Depakote] 500 mg Tablet,Delayed Release (Dr/Ec) 500 mg PO BID diphenhydramine HCl 25 mg Tablet 25 mg PO BEDTIME PRN (Reason: Sleep) albuterol sulfate 90 mcg/actuation Hfa Aerosol Inhaler 2 puff INHALATION Q6H PRN (Reason: Wheezing) Eliquis 5 mg Tablet 5 mg PO BID levetiracetam 1,000 mg Tablet 1,000 mg PO BID Qty: 60 0RF fluticasone propion-salmeterol [Advair Diskus] 250-50 mcg/dose Blister With Device 1 inh INHALATION BID lorazepam 2 mg/mL Solution 2 mg IM DAILY PRN (Reason: Seizure Activity) Rx Instructions: until hemodynamically stable doxycycline monohydrate 100 mg Capsule 100 mg PO Q12H Qty: 8 0RF cefuroxime axetil 500 mg Tablet 500 mg PO Q12H Qty: 8 0RF
[2023-06-22] MEDS: LORazepam 1 MG TABLET PO (08:26)
--- NOTE | 2023-06-22 08:35 | PC.NURSE ---
Post medication administration and repositioning of pt, pt states Im going to have another seizure . Pt demonstrated episode of body jerking/tremor- pt was alert and able to states he feels dizzy during this episode. Immediately after episode, pt remained A&O x's3, stating his name, where he was, and the month. Provider notified.
[2023-06-22 09:42] VITALS: BP 130/81; PULSE 98; RESP 15; TEMP 37.1; O2SAT 95
[2023-06-22 10:28] LABS: Lactic Acid 1.5 mmol/L (0.5-2.0)
--- NOTE | 2023-06-22 11:28 | PC.NURSE ---
Spoke with Marisol BLAIR at [facility] and provided report.
[2023-06-22 12:44] LABS: Anion Gap 17 (12-20)
[2023-06-22 12:45] VITALS: BP 122/74; PULSE 92; RESP 16; TEMP 36.8; O2SAT 96
[2023-06-22 12:58] LABS: Alanine Aminotransferase 63 U/L (0-40); Albumin Level 4.3 g/dL (3.5-5.0); Alkaline Phosphatase 53 U/L (39-117); Aspartate Amino Transferase 40 U/L (5-37); Bilirubin Total 0.4 mg/dL (0.0-1.0); Blood Urea Nitrogen 10 mg/dL (9-16); Calcium 9.9 mg/dL (8.4-10.2); Carbon Dioxide 27 mmol/L (22-29); Chloride 103 mmol/L (96-108); Creatinine Clr Calc Pharmacy 138.3; Estimated Glomerular Filt Rate > 60; Glucose Fasting 85 mg/dL (60-99); Potassium 4.5 mmol/L (3.3-5.1); Sodium 142 mmol/L (135-145); Total Protein 7.5 g/dL (6.5-8.0)
--- NOTE | 2023-06-22 13:32 | PHA.MEDREC ---
Pharmacy Consult ? Medication Reconciliation Pharmacy has completed the medication reconciliation. used list from [facility]
== END 2023-06-22 13:40 ==
PROVIDERS: Emergency Provider Emergency Medicine Emergency Medical Services; PCP Hospitalist
DX: R56.9 Unspecified convulsions (principal); R94.31 Abnormal electrocardiogram [ECG] [EKG]; Z79.899 Other long term (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
CPT/HCPCS: 36415; 80053; 82550; 83605; 93005; 99283; 99284

== ENCOUNTER → 2023-06-22 07:11 | Outpatient (BNV) | payer MEDICAID, SELFPAY | PROVIDERS: Emergency Provider Emergency Medicine Emergency Medical Services; PCP Hospitalist; Visit Provider Internal Medicine Cardiovascular Disease | DX: R94.31 Abnormal electrocardiogram [ECG] [EKG] (principal); R56.9 Unspecified convulsions | CPT/HCPCS: 93010 ==

== ENCOUNTER 2023-06-28 20:03 | Emergency (ER) | payer MEDICAID, SELFPAY ==
--- NOTE | ~2023-06-28 | XR_ITS ---
EXAMINATION: XR CHEST CLINICAL INFORMATION: Pneumonia COMPARISON: Chest radiograph from 06/09/2023, CT angiogram chest from 06/09/2023 TECHNIQUE: Frontal view of the chest was obtained. FINDINGS: Stable elevation of the right hemidiaphragm. Right basilar atelectasis. No pneumothorax. Trachea is midline. Cardiomediastinal silhouette is stable. No large pleural effusion. Osseous structures are intact. Soft tissues are unremarkable. XR/XR chest 1V IMPRESSION: 1. Stable elevation of the right hemidiaphragm. 2. Right basilar atelectasis.
[2023-06-28 20:12] VITALS: BP 130/85; PULSE 90; O2SAT 86
[2023-06-28 20:14] VITALS: BP 125/85; PULSE 102; RESP 19; TEMP 36.7; O2SAT 97; BMI 34.9
--- NOTE | 2023-06-28 20:26 | ED_ITS ---
HPI - Seizure General Chief Complaint: Seizure Stated Complaint: seizure at long term, hx of seizures Time Seen by Provider: 06/28/23 20:23 Source: patient, EMS and old records reviewed Mode of arrival: EMS Limitations: no limitations History of Present Illness HPI Narrative: 37-year-old male history of TBI reside at [facility] patient with known history psychogenic nonepileptic seizures and seizure disorder on Depakote and Keppra patient had an episode of seizure at the facility lasted for about 3 minutes after was given 2 mg Ativan IM. Patient noted by EMS patient was hypoxic at 86% room air that improved with 2 L of oxygen via nasal cannula, patient normally use 2 L of oxygen 24/01. Seizure History: Yes Related Data Home Medications Medication Instructions Recorded Confirmed acetaminophen 325 mg tablet 650 mg PO Q6H PRN Fever Or Pain 04/15/23 06/22/23 albuterol sulfate 90 mcg/actuation 2 puff inhalation Q6H PRN Wheezing 04/15/23 06/22/23 aerosol inhaler apixaban 5 mg tablet (Eliquis) 5 mg PO BID 04/15/23 06/22/23 citalopram 10 mg tablet 10 mg PO DAILY 04/15/23 06/22/23 diphenhydramine HCl 25 mg tablet 25 mg PO BEDTIME PRN Sleep 04/15/23 06/22/23 divalproex 500 mg tablet,delayed 500 mg PO BID 04/15/23 06/22/23 release (Depakote) multivitamin 1 tab PO DAILY 04/15/23 06/22/23 olanzapine 10 mg tablet 10 mg PO BEDTIME 04/15/23 06/22/23 ondansetron HCl 4 mg tablet 4 mg PO Q8H PRN Nausea And Vomiting 04/15/23 06/22/23 quetiapine 25 mg tablet 25 mg PO QAM 04/15/23 06/22/23 sennosides 8.6 mg tablet (senna) 8.6 mg PO DAILY PRN Constipation 04/15/23 06/22/23 guaifenesin 100 mg/5 mL oral liquid 300 mg PO Q6H PRN Cough 05/03/23 06/22/23 melatonin 5 mg tablet 5 mg PO BEDTIME 05/03/23 06/22/23 polyvinyl alcohol 1.4 % eye drops 1 drp ophthalmic (eye) Q6H PRN Dry 05/03/23 06/22/23 Eye(S) fluticasone 250 mcg-salmeterol 50 1 inh inhalation BID 06/09/23 06/22/23 mcg/dose blistr powdr for inhalation (Advair Diskus) lorazepam 2 mg/mL injection 1 mg IM DAILY PRN Seizure Activity 06/09/23 06/22/23 solution Previous Rx's Medication Instructions Recorded levetiracetam 1,000 mg tablet 1,000 mg PO BID #60 tabs 04/20/23 Allergies Allergy/AdvReac Type Severity Reaction Status Date / Time amoxicillin Allergy Anaphylaxis Verified 06/22/23 07:10 sertraline [From Zoloft] Allergy Anaphylaxis Verified 06/22/23 07:10 Review of Systems Review of Systems: all other systems are reviewed and are negative Constitutional: Reports as per HPI and Reports no additional constitutional complaints Eyes: Reports as per HPI and Reports no additional eye complaints Reports system reviewed and no additional complaints, except as documented Cardiovascular: Reports as per HPI and Reports no additional cardiovascular complaints Respiratory: Reports as per HPI and Reports no additional respiratory complaints Gastrointestinal: Reports as per HPI and Reports no additional gastrointestinal complaints Genitourinary: Reports no additional female genitourinary complaints Musculoskeletal: Reports no additional musculoskeletal complaints Skin/Breast: Reports system reviewed and no additional complaints, except as docu Psychiatric: Reports no additional psychiatric complaints Endocrine: Reports no additional endocrine complaints Hematologic/Lymphatic: Reports no additional hematologic/lymphatic complaints Allergic/Immunologic: Reports no additional allergic/immunologic complaints Reports system reviewed and no additional complaints, except as documented and Reports Abnormal speech present [facility] Past Medical History Medical History Epileptic seizure Asthma Acute hypoxic respiratory failure Pneumonia Psychogenic nonepileptic seizure Seizure disorder Chronic anticoagulation TBI (traumatic brain injury) Social History Social History Household Members: Other Housing: Custodial Do you presently have visiting nurse or other home services: No Alcohol intake: never Patient Tobacco Use Status: Never used Tobacco e-Cigarette/Vaping Use: Never Used service: No Physical Exam Vital Signs: Vital Signs: BMI result Body Mass Index 34.9 Vital signs have been reviewed and appear to be correct. Blood pressure elevated. Heart rate normal. Respiratory rate normal. Temperature normal. Oxygen saturation normal. Appearance: Alert. Oriented X3. No acute distress. Head: Normal external exam. Normocephalic. Atraumatic. No Scott signs noted. No raccoon eyes noted Eyes: PERRLA. EOMI. Conjunctiva and sclera normal. Eyelids normal. ENT: TM's Normal. Pharynx normal. Uvula midline. Moist mucous membranes. No trismus noted. No drooling noted. No muffled voice noted. Neck: Normal inspection. Neck supple. FROM. No adenopathy. Thyroid Normal. No meningeal signs. No neck mass noted. CVS: Normal heart rate and rhythm. Heart sound normal. No murmurs noted. Pulses normal throughout. Respiratory: No respiratory distress. Painless inspiration. Breath sounds normal. No wheezes/rales/rhonchi noted. Chest nontender. No accessory muscle usage noted or decreased air movement noted. Abdomen: Soft and nontender. Bowel sounds normal in all 4 quadrants. No distention noted. No organomegaly noted. No visible injury noted. Back: No CVA tenderness. Full range of motion noted. Skin: Skin warm and dry. Normal skin color. Normal skin turgor. No rashes/lesions/lacerations noted. Extremities: No lower extremity edema. Extremities exhibit normal range of motion. Extremities nontender. Neuro: Oriented X 3. Cranial nerve exam: II-XII are grossly intact No motor deficit. No sensory deficit. Reflexes normal. Course Reevaluation(s) Reevaluation #1: 1 time seizure at [facility], labs are at baseline for the patient, patient with chronic hypoxia unremarkable chest x-ray. Is stable to be discharged back to correction. Medical Decision Making Differential Diagnosis Differential Diagnoses: The differential diagnosis associated with the presentation includes ( pneumonia, pneumothorax, electrolyte abnormality, severe anemia , UTI, substance abuse.) Admission/Observation Consideration of admission/observation: Escalation of care including admission/observation considered Lab Data MDM Lab Attestation statement: I reviewed the patient's lab results. Independent Interpretation I performed an independent interpretation of an: Plain X-Ray ( Chest: No acute intrathoracic pathology.) Radiology Impression Discussion of test interpretation with radiology: I have reviewed the radiologist's reading. Discharge Plan Discharge Clinical Impression: Seizure Patient Disposition: Home, Self-Care Instructions: Nonepileptic Seizures (ED) Prescriptions: No Action polyvinyl alcohol 1.4 % Drops 1 drp OPHTHALMIC (EYE) Q6H PRN (Reason: Dry Eye(S)) guaifenesin 100 mg/5 mL Liquid 300 mg PO Q6H PRN (Reason: Cough) melatonin 5 mg Tablet 5 mg PO BEDTIME multivitamin Tablet 1 tab PO DAILY quetiapine 25 mg Tablet 25 mg PO QAM sennosides [senna] 8.6 mg Tablet 8.6 mg PO DAILY PRN (Reason: Constipation) acetaminophen 325 mg Tablet 650 mg PO Q6H PRN (Reason: Fever Or Pain) citalopram 10 mg Tablet 10 mg PO DAILY ondansetron HCl 4 mg Tablet 4 mg PO Q8H PRN (Reason: Nausea And Vomiting) olanzapine 10 mg Tablet 10 mg PO BEDTIME divalproex [Depakote] 500 mg Tablet,Delayed Release (Dr/Ec) 500 mg PO BID diphenhydramine HCl 25 mg Tablet 25 mg PO BEDTIME PRN (Reason: Sleep) albuterol sulfate 90 mcg/actuation Hfa Aerosol Inhaler 2 puff INHALATION Q6H PRN (Reason: Wheezing) Eliquis 5 mg Tablet 5 mg PO BID levetiracetam 1,000 mg Tablet 1,000 mg PO BID Qty: 60 0RF fluticasone propion-salmeterol [Advair Diskus] 250-50 mcg/dose Blister With Device 1 inh INHALATION BID Rx Instructions: rinse mouth after use lorazepam 2 mg/mL Solution 1 mg IM DAILY PRN (Reason: Seizure Activity) Rx Instructions: until hemodynamically stable
[2023-06-28 20:54] LABS: Appearance Urine Clear; Color Urine Yellow; Glucose Urine UA Negative (Negative); Leukocyte Esterase Urine Negative (Negative); Nitrite Urine Negative (Negative); PH 6.5 (5.0-9.0); UMIC TRIGGER UACC YES; Urine Blood Small (1+) (Negative); Urine Ketones Negative (Negative); Urine Protein Trace mg/dL (Neg-Trace)
[2023-06-28 21:00] LABS: Amphetamine Screen Urine Not Detected (Not Detect); Barbiturates, Urine Not Detected (Not Detect); Benzodiazepines Screen Urine Not Detected (Not Detect); Cannabinoid Screen Urine Not Detected (Not Detect); Cocaine Screen Urine Not Detected (Not Detect); Fentanyl, urine Not Detected (Not Detect); Opiate Screen Urine Not Detected (Not Detect); Phencyclidine Screen Urine Not Detected (Not Detect)
[2023-06-28 21:13] LABS: Bacteria Urine None Seen (None Seen); Hyaline Casts Urine 0-2 /LPF (0-2); Squamous Epithelial Cell Urine 0-2 /HPF (0-2); WBC Urine 0-5 /HPF (0-5)
[2023-06-28 21:38] LABS: Anion Gap 14 (12-20); Blood Urea Nitrogen 12 mg/dL (9-16); Calcium 9.6 mg/dL (8.4-10.2); Carbon Dioxide 29 mmol/L (22-29); Chloride 102 mmol/L (96-108); Creatinine Clr Calc Pharmacy 131.3; Estimated Glomerular Filt Rate > 60; Glucose Random 173 mg/dL (60-115); Potassium 4.4 mmol/L (3.3-5.1); Sodium 141 mmol/L (135-145)
[2023-06-28 23:47] VITALS: BP 111/71; PULSE 90; RESP 14; O2SAT 98
--- NOTE | 2023-06-29 00:51 | MHC.EDTECH ---
call out to [facility] at 0045 to book transport for pt, estimated eta given was 0145
== END 2023-06-29 06:00 | disposition home or self-care (01) ==
PROVIDERS: Emergency Provider Emergency Medicine
DX: J98.11 Atelectasis (principal); R56.9 Unspecified convulsions; Z79.899 Other long term (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
CPT/HCPCS: 36415; 71045; 80048; 80307; 81001; 81003; 99284

== ENCOUNTER 2023-06-30 10:55 | Outpatient (REF) | payer MEDICAID, SELFPAY | END 2023-06-30 10:56 | disposition home or self-care (01) | LOC: HO.CT 10:55 | PROVIDERS: PCP Hospitalist; Visit Provider Hospitalist | DX: J18.9 Pneumonia, unspecified organism (principal) | CPT/HCPCS: 71250 ==

== ENCOUNTER 2023-07-25 15:39 | Emergency (ER) | payer MEDICAID, SELFPAY ==
--- NOTE | ~2023-07-25 | XR_ITS ---
EXAMINATION: XR CHEST CLINICAL INFORMATION: Pain COMPARISON: CT chest 06/30/2023 and chest radiograph 06/28/2023 Shoulder radiographs 05/09/2023 TECHNIQUE: Frontal view of the chest was obtained. FINDINGS: Again seen is marked elevation of the right hemidiaphragm with right basilar atelectasis. Heart size is normal. There is no evidence of CHF. Right basilar atelectasis is noted. A tiny right effusion may be present.. The left lung is clear. Again seen are large chronic calcific changes at the coraco-clavicular ligament on the right and an old healed left humeral neck fracture. XR/XR chest 1V IMPRESSION: Marked elevation of the right hemidiaphragm with right basilar atelectasis.
[2023-07-25 15:58] VITALS: BP 100/70; BP 134/95; PULSE 93; PULSE 98; RESP 20; TEMP 37.1; O2SAT 95; BMI 35.5
--- NOTE | 2023-07-25 16:00 | ECG_ITS ---
Test Reason : CHEST PAIN Blood Pressure : / mmHG Vent. Rate : 088 BPM Atrial Rate : 088 BPM P-R Int : 168 ms QRS Dur : 082 ms QT Int : 344 ms P-R-T Axes : 037 041 025 degrees QTc Int : 416 ms Normal sinus rhythm normal ECG When compared with ECG of 22-JUN-2023 07:11, No significant change was found Referred By: Generic ED Physician Electronically Signed By:Roberto Avila
--- NOTE | 2023-07-25 16:15 | ED.CHESTPAIN ---
HPI - Chest Pain General Chief Complaint: Chest Pain Stated Complaint: 04/12 chest pain, hurts with palp, center sternal Time Seen by Provider: 07/25/23 16:02 Source: patient and old records reviewed Mode of arrival: ambulatory Limitations: other (poor historian) History of Present Illness HPI narrative: 37 yo male with PMH of seizures/pseudoseizures recent admit in june with R sided PNA self induced hypoxia and PNES - takes keppra and depakote, enlarged liver, PTSD, NEREYDA, chronic O2 use post pneumonia, on eliquis but he is not sure why takes 5mg BID, mood disorder he comes today with c/o sternal chest pain squeezing in nature without any associated symptoms. He states it happened after breakfast but cannot give me a timeline. Nothing makes it better or worse MD complaint: chest pain Onset (ago): hour(s) (after breakfast today) Timing of current episode: constant Prior episodes: Yes Onset: during rest Pain location: substernal Pain radiation: none Severity: moderate Quality: other (squeezing) Relieving factors: nothing Exacerbating factors: nothing Context: recent illness Treatment prior to arrival: none Related Data Home Medications Medication Instructions Recorded Confirmed acetaminophen 325 mg tablet 650 mg PO Q6H PRN Fever Or Pain 04/15/23 06/22/23 albuterol sulfate 90 mcg/actuation 2 puff inhalation Q6H PRN Wheezing 04/15/23 06/22/23 aerosol inhaler apixaban 5 mg tablet (Eliquis) 5 mg PO BID 04/15/23 06/22/23 citalopram 10 mg tablet 10 mg PO DAILY 04/15/23 06/22/23 diphenhydramine HCl 25 mg tablet 25 mg PO BEDTIME PRN Sleep 04/15/23 06/22/23 divalproex 500 mg tablet,delayed 500 mg PO BID 04/15/23 06/22/23 release (Depakote) multivitamin 1 tab PO DAILY 04/15/23 06/22/23 olanzapine 10 mg tablet 10 mg PO BEDTIME 04/15/23 06/22/23 ondansetron HCl 4 mg tablet 4 mg PO Q8H PRN Nausea And Vomiting 04/15/23 06/22/23 quetiapine 25 mg tablet 25 mg PO QAM 04/15/23 06/22/23 sennosides 8.6 mg tablet (senna) 8.6 mg PO DAILY PRN Constipation 04/15/23 06/22/23 guaifenesin 100 mg/5 mL oral liquid 300 mg PO Q6H PRN Cough 05/03/23 06/22/23 melatonin 5 mg tablet 5 mg PO BEDTIME 05/03/23 06/22/23 polyvinyl alcohol 1.4 % eye drops 1 drp ophthalmic (eye) Q6H PRN Dry 05/03/23 06/22/23 Eye(S) fluticasone 250 mcg-salmeterol 50 1 inh inhalation BID 06/09/23 06/22/23 mcg/dose blistr powdr for inhalation (Advair Diskus) lorazepam 2 mg/mL injection 1 mg IM DAILY PRN Seizure Activity 06/09/23 06/22/23 solution Previous Rx's Medication Instructions Recorded levetiracetam 1,000 mg tablet 1,000 mg PO BID #60 tabs 04/20/23 Allergies Allergy/AdvReac Type Severity Reaction Status Date / Time amoxicillin Allergy Anaphylaxis Verified 07/25/23 15:59 sertraline [From Zoloft] Allergy Anaphylaxis Verified 07/25/23 15:59 Review of Systems Review of Systems: Constitutional : No Weight loss, No Fever, No Chills ENT/Mouth : No sore throat, No Rhinorrhea Eyes: No Eye Pain, No Swelling Cardiovascular : pos Chest Pain, no SOB, no Dyspnea on Exertion, No Orthopnea, No Edema, No Palpitations Respiratory : No Cough, No Sputum Gastrointestinal : no Nausea, No Vomiting, No Diarrhea, No abdominal Pain, No Hematochezia, No Melena Genitourinary : No Dysuria, No Urinary Frequency Musculoskeletal : No joint pain, No Myalgias, No Joint Swelling Skin : No Skin Lesions, No rash Neuro : No Weakness, No Numbness, No Dizziness, No Headache Psych : No Anxiety/Panic, No Depression All other systems reviewed and are negative PMFSH Past Medical History Source: old records reviewed Medical History Epileptic seizure Asthma Acute hypoxic respiratory failure Pneumonia Psychogenic nonepileptic seizure Seizure disorder Chronic anticoagulation TBI (traumatic brain injury) Social History Social History Household Members: Other Housing: Custodial Do you presently have visiting nurse or other home services: No Alcohol intake: never Patient Tobacco Use Status: Never used Tobacco e-Cigarette/Vaping Use: Never Used Advance Directives: No Advance Directives Information Provided: No service: No Physical Exam Vital Signs: Vital Signs: Last Vital Signs Temp 98.9 F 07/25/23 17:14 Pulse 90 07/25/23 17:14 Resp 16 07/25/23 17:14 BP 119/82 07/25/23 17:14 Pulse Ox 97 07/25/23 17:14 O2 Del Method Nasal Cannula 07/25/23 17:14 O2 Flow Rate 2 07/25/23 17:14 Oxygen Flow Rate 2 07/25/23 15:58 BMI result Body Mass Index 35.5 Appearance: Alert. Oriented X3. No acute distress. Flat affect Eyes: Pupils equal, round and reactive to light. ENT: Pharynx normal. Neck: Normal inspection. Neck supple. CVS: Normal heart rate and rhythm. Pulses normal. Respiratory: No respiratory distress. Breath sounds diminished in the bases Abdomen: Soft and nontender. Skin: Skin warm and dry. Normal skin color. Normal skin turgor. Extremities: No lower extremity edema. No calf ttp Neuro: Oriented X 3. R sided weakness, chronic No sensory deficit. Medical Decision Making Medical Decision Making MDM Narrative: 37 yo male with PMH of seizures/pseudoseizures recent admit in june with R sided PNA self induced hypoxia and PNES - takes keppra and depakote, enlarged liver, PTSD, NEREYDA, chronic O2 use post pneumonia, on eliquis but he is not sure why takes 5mg BID, mood disorder here with chest squeezing - he denies infectious symptoms but did have recent pneumonia. He has no additional symptoms and no known CAD - will obtain EKG and troponin x 2. He is on eliquis 5mg BID and has not missed a dose VTE unlikely no worsening baseline hypoxia and no unilateral leg swelling. Labs, EKG, CXR, cultures, troponin x 2. Differential Diagnosis Differential Diagnoses: The differential diagnosis associated with the presentation includes viral syndrome, atypical chest pain, ACS Admission/Observation Consideration of admission/observation: Escalation of care including admission/observation considered CXR negative, trop flat x 2, stable for DC Lab Data [facility] Lab Attestation statement: I reviewed the patient's lab results. 07/25/23 16:30 07/25/23 18:54 Labs: Lab Results 07/25/23 07/25/23 07/25/23 Range/Units 16:30 17:39 18:51 WBC 6.4 (4.8-10.8) X10*3/uL RBC 4.89 (4.60-5.80) X10*6/uL Hgb 14.5 (14.0-18.0) g/dl Hct 43.5 (42.0-52.0) % MCV 89.0 (80.0-98.0) fL MCH 29.7 (27.0-33.0) pg MCHC 33.3 (31.0-36.0) g/dl RDW 12.6 (11.0-16.0) % Plt Count 199 D (160-400) X10*3/uL MPV 9.0 L (9.4-12.4) fL Immature Gran % (Auto) 0.3 (0.0-0.4) % Neut % (Auto) 53.6 (45-73) % Lymph % (Auto) 38.5 (20-40) % [place] % (Auto) 6.7 (2-11) % Eos % (Auto) 0.6 (0-4) % Baso % (Auto) 0.3 (0-2) % Lymph # (Auto) 2.5 (1.2-4.9) X10*3/uL [place] # (Auto) 0.4 (0.1-1.2) X10*3/uL Eos # (Auto) 0.0 (0.0-0.4) X10*3/uL Baso # (Auto) 0.0 (0.0-0.2) X10*3/uL Abs Immat Gran (auto) 0.02 (0.00-0.03) X10*3/uL Absolute Neuts (auto) 3.4 (2.0-8.3) x10*3/uL Absolute Nucleated RBC 0.000 (0.0-0.012) X10*3/uL Nucleated RBC % (auto) 0.0 (0.0-0.2) /100WBC Hold Purple Top SEE NOTE Sodium (135-145) mmol/L Potassium (3.3-5.1) mmol/L Chloride (96-108) mmol/L Carbon Dioxide (22-29) mmol/L Anion Gap (12-20) BUN (9-16) mg/dL Creatinine (0.5-1.4) mg/dL Estim Creat Clear Calc Estimated GFR Random Glucose (60-115) mg/dL Lactic Acid 1.2 (0.5-2.0) mmol/L Calcium (8.4-10.2) mg/dL Magnesium (1.6-2.6) mg/dL Total Bilirubin (0.0-1.0) mg/dL Direct Bilirubin (0.0-0.5) mg/dL AST (5-37) U/L ALT (0-40) U/L Alkaline Phosphatase (39-117) U/L Troponin I High Sens < 2.7 < 2.7 (<3.5-35.0) ng/L Total Protein (6.5-8.0) g/dL Albumin (3.5-5.0) g/dL Lipase (8-78) U/L Valproic Acid 68.4 (50.0-100.0) mcg/mL COVID-19 (BERT) Negative (Negative) COVID-19 Clin Com See Note Influenza Type A (HEIDY) Negative (Negative) Influenza Type B (HEIDY) Negative (Negative) Influenza A & B Note See Note 07/25/23 Range/Units 18:54 WBC (4.8-10.8) X10*3/uL RBC (4.60-5.80) X10*6/uL Hgb (14.0-18.0) g/dl Hct (42.0-52.0) % MCV (80.0-98.0) fL MCH (27.0-33.0) pg MCHC (31.0-36.0) g/dl RDW (11.0-16.0) % Plt Count (160-400) X10*3/uL MPV (9.4-12.4) fL Immature Gran % (Auto) (0.0-0.4) % Neut % (Auto) (45-73) % Lymph % (Auto) (20-40) % [place] % (Auto) (2-11) % Eos % (Auto) (0-4) % Baso % (Auto) (0-2) % Lymph # (Auto) (1.2-4.9) X10*3/uL [place] # (Auto) (0.1-1.2) X10*3/uL Eos # (Auto) (0.0-0.4) X10*3/uL Baso # (Auto) (0.0-0.2) X10*3/uL Abs Immat Gran (auto) (0.00-0.03) X10*3/uL Absolute Neuts (auto) (2.0-8.3) x10*3/uL Absolute Nucleated RBC (0.0-0.012) X10*3/uL Nucleated RBC % (auto) (0.0-0.2) /100WBC Hold Purple Top Sodium 146 H (135-145) mmol/L Potassium 4.5 (3.3-5.1) mmol/L Chloride 103 (96-108) mmol/L Carbon Dioxide 30 H (22-29) mmol/L Anion Gap 18 (12-20) BUN 11 (9-16) mg/dL Creatinine 0.88 (0.5-1.4) mg/dL Estim Creat Clear Calc 121.1 Estimated GFR > 60 Random Glucose 88 (60-115) mg/dL Lactic Acid (0.5-2.0) mmol/L Calcium 9.6 (8.4-10.2) mg/dL Magnesium 1.7 (1.6-2.6) mg/dL Total Bilirubin 0.4 (0.0-1.0) mg/dL Direct Bilirubin 0.1 (0.0-0.5) mg/dL AST 45 H (5-37) U/L ALT 64 H (0-40) U/L Alkaline Phosphatase 53 (39-117) U/L Troponin I High Sens (<3.5-35.0) ng/L Total Protein 7.6 (6.5-8.0) g/dL Albumin 4.3 (3.5-5.0) g/dL Lipase 62 (8-78) U/L Valproic Acid (50.0-100.0) mcg/mL COVID-19 (BERT) (Negative) COVID-19 Clin Com Influenza Type A (HEIDY) (Negative) Influenza Type B (HEIDY) (Negative) Influenza A & B Note Independent Interpretation I performed an independent interpretation of an: EKG and Plain X-Ray (normal ) Interpretation: Rate: 88 Rhythm: NSR [place]: normal Normal P waves. Normal JOMAR. Normal QRS complex. ST T wave : no JOANNA qTC: 416 prior studies: no acute ischemia The study has been interpreted contemporaneously by me. . Radiology Impression Discussion of test interpretation with radiology: I have reviewed the radiologist's reading. Independent Historian Clinical information obtained from an independent historian. History obtained from or confirmed by: EMS External Record Review External record reviewed: Inpatient record Discharge Plan Discharge Clinical Impression: Atypical chest pain Patient Disposition: Home, Self-Care Instructions: Chest Pain (ED) Additional Instructions: labs normal trop flat x 2, COVID and flu negative Na mildly bumped at 146 encourage fluds chest xray improved from last admission EKG non ischemic no medications given in the ED return for worsening symptoms or concerns continue your medications, follow up with your doctor Prescriptions: No Action polyvinyl alcohol 1.4 % Drops 1 drp OPHTHALMIC (EYE) Q6H PRN (Reason: Dry Eye(S)) guaifenesin 100 mg/5 mL Liquid 300 mg PO Q6H PRN (Reason: Cough) melatonin 5 mg Tablet 5 mg PO BEDTIME multivitamin Tablet 1 tab PO DAILY quetiapine 25 mg Tablet 25 mg PO QAM sennosides [senna] 8.6 mg Tablet 8.6 mg PO DAILY PRN (Reason: Constipation) acetaminophen 325 mg Tablet 650 mg PO Q6H PRN (Reason: Fever Or Pain) citalopram 10 mg Tablet 10 mg PO DAILY ondansetron HCl 4 mg Tablet 4 mg PO Q8H PRN (Reason: Nausea And Vomiting) olanzapine 10 mg Tablet 10 mg PO BEDTIME divalproex [Depakote] 500 mg Tablet,Delayed Release (Dr/Ec) 500 mg PO BID diphenhydramine HCl 25 mg Tablet 25 mg PO BEDTIME PRN (Reason: Sleep) albuterol sulfate 90 mcg/actuation Hfa Aerosol Inhaler 2 puff INHALATION Q6H PRN (Reason: Wheezing) Eliquis 5 mg Tablet 5 mg PO BID levetiracetam 1,000 mg Tablet 1,000 mg PO BID Qty: 60 0RF fluticasone propion-salmeterol [Advair Diskus] 250-50 mcg/dose Blister With Device 1 inh INHALATION BID Rx Instructions: rinse mouth after use lorazepam 2 mg/mL Solution 1 mg IM DAILY PRN (Reason: Seizure Activity) Rx Instructions: until hemodynamically stable
[2023-07-25 16:37] LABS: MANUAL DIFF FLAG NO
[2023-07-25 16:42] LABS: Basophils Percent Auto 0.3 % (0-2); Eosinophils Percent Auto 0.6 % (0-4); Hematocrit 43.5 % (42.0-52.0); Hemoglobin 14.5 g/dl (14.0-18.0); Imm Gran Abs Auto 0.02 X10*3/uL (0.00-0.03); Imm Gran Pct Auto 0.3 % (0.0-0.4); Lymphocytes Absolute Auto 2.5 X10*3/uL (1.2-4.9); Lymphocytes Percent Auto 38.5 % (20-40); Mean Corpuscular HGB Conc 33.3 g/dl (31.0-36.0); Mean Corpuscular Hemoglobin 29.7 pg (27.0-33.0); Monocytes Absolute Auto 0.4 X10*3/uL (0.1-1.2); Monocytes Percent Auto 6.7 % (2-11); Neutrophils Absolute Auto 3.4 x10*3/uL (2.0-8.3); Neutrophils Percent Auto 53.6 % (45-73); Platelet Count 199 X10*3/uL (160-400); Red Blood Count 4.89 X10*6/uL (4.60-5.80); Red Cell Distribution Width 12.6 % (11.0-16.0); White Blood Count 6.4 X10*3/uL (4.8-10.8)
[2023-07-25 16:54] LABS: Lactic Acid 1.2 mmol/L (0.5-2.0)
[2023-07-25 16:56] LABS: Valproate 68.4 mcg/mL (50.0-100.0)
[2023-07-25 17:07] LABS: Troponin-I High Sensitivity < 2.7 ng/L (<3.5-35.0)
[2023-07-25 17:14] VITALS: BP 119/82; PULSE 90; RESP 16; TEMP 37.2; O2SAT 97
--- NOTE | 2023-07-25 17:44 | MHC.EDTECH ---
Provider radha said to wait until 1830 to do redraw .
--- NOTE | 2023-07-25 17:58 | PC.NURSE ---
Labs hemolyzed, per Provider hold off on recollect until 1829, POC approved if need be d/t hard stick
[2023-07-25 18:13] LABS: IDNOW Serial# 152EDE1D; Influenza A Negative (Negative); Influenza B2 Negative (Negative)
[2023-07-25 18:21] LABS: COVID-19 Test Negative (Negative); IDNOW Serial# 58CA691E
[2023-07-25 19:17] LABS: Troponin-I High Sensitivity < 2.7 ng/L (<3.5-35.0)
[2023-07-25 19:21] LABS: Alanine Aminotransferase 64 U/L (0-40); Albumin Level 4.3 g/dL (3.5-5.0); Alkaline Phosphatase 53 U/L (39-117); Anion Gap 18 (12-20); Aspartate Amino Transferase 45 U/L (5-37); Bilirubin Direct 0.1 mg/dL (0.0-0.5); Bilirubin Total 0.4 mg/dL (0.0-1.0); Blood Urea Nitrogen 11 mg/dL (9-16); Calcium 9.6 mg/dL (8.4-10.2); Carbon Dioxide 30 mmol/L (22-29); Chloride 103 mmol/L (96-108); Creatinine Clr Calc Pharmacy 121.1; Estimated Glomerular Filt Rate > 60; Glucose Random 88 mg/dL (60-115); Lipase 62 U/L (8-78); Magnesium 1.7 mg/dL (1.6-2.6); Potassium 4.5 mmol/L (3.3-5.1); Sodium 146 mmol/L (135-145); Total Protein 7.6 g/dL (6.5-8.0)
[2023-07-25 19:44] LABS: Procalcitonin 0.03 ng/mL
[2023-07-25 20:57] VITALS: BP 138/87; PULSE 100; RESP 20; O2SAT 97
--- NOTE | 2023-07-25 21:30 | PC.NURSE ---
nurse to nurse report given to care one
== END 2023-07-25 23:34 | disposition home or self-care (01) ==
PROVIDERS: Emergency Provider Emergency Medicine; PCP Hospitalist
DX: R07.89 Other chest pain (principal); Z11.52 Encounter for screening for COVID-19
CPT/HCPCS: 36415; 71045; 80048; 80076; 80164; 83605; 83690; 83735; 84145; 84484; 85025; 87040; 87502; 87635; 93005; 99283; 99285

== ENCOUNTER → 2023-07-25 16:00 | Outpatient (BNV) | payer MEDICAID, SELFPAY | PROVIDERS: Emergency Provider Emergency Medicine; PCP Hospitalist; Visit Provider Internal Medicine Cardiovascular Disease | DX: R07.9 Chest pain, unspecified (principal) | CPT/HCPCS: 93010 ==

== ENCOUNTER 2023-08-02 10:29 | Outpatient (AMB) | payer MEDICAID, SELFPAY ==
[2023-08-02 10:30] VITALS: BP 130/80; PULSE 96; O2SAT 98
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
[2023-08-02 11:01] VITALS: PULSE 89; O2SAT 91
== END 2023-08-02 11:10 | disposition home or self-care (01) ==
PROVIDERS: PCP Hospitalist; Visit Provider Nurse Practitioner Family
DX: J45.40 Moderate persistent asthma, uncomplicated (principal); Z87.09 Personal history of other diseases of the respiratory system; R09.02 Hypoxemia; R06.00 Dyspnea, unspecified; J69.0 Pneumonitis due to inhalation of food and vomit
CPT/HCPCS: 94618; 99214

== ENCOUNTER → 2023-08-02 10:29 | Outpatient (BNVA) | payer MEDICAID, SELFPAY | PROVIDERS: Visit Provider Nurse Practitioner Family | DX: J45.40 Moderate persistent asthma, uncomplicated (principal); J69.0 Pneumonitis due to inhalation of food and vomit; R09.02 Hypoxemia; R06.00 Dyspnea, unspecified; Z87.09 Personal history of other diseases of the respiratory system | CPT/HCPCS: 94618; 99212 ==

== ENCOUNTER → 2023-09-05 07:52 | Outpatient (REF) | payer MEDICAID, SELFPAY | LOC: HO.SL 07:52 | PROVIDERS: PCP Hospitalist; Visit Provider Nurse Practitioner Family | DX: R06.83 Snoring (principal); R06.00 Dyspnea, unspecified; Z87.09 Personal history of other diseases of the respiratory system | CPT/HCPCS: 95806 ==

== ENCOUNTER → 2023-09-05 08:27 | Outpatient (BNV) | payer MEDICAID, SELFPAY | PROVIDERS: PCP Hospitalist; Visit Provider Internal Medicine | DX: R06.83 Snoring (principal) | CPT/HCPCS: 95806 ==

== ENCOUNTER 2023-09-19 14:44 | Outpatient (REF) | payer MEDICAID, SELFPAY ==
--- NOTE | ~2023-09-19 | CT_ITS ---
EXAMINATION: CT CHEST WITHOUT CONTRAST CLINICAL INFORMATION: Pneumonitis COMPARISON: Chest x-ray 07/25/[address] 06/30/2023 TECHNIQUE: Multidetector volumetric CT imaging of the chest was done. Axial MIP volume rendering provided. Sagittal and coronal reformatted images were obtained. This CT examination was performed using dose optimization techniques as appropriate, variously including the following: *Automated exposure control *Adjustment of mA and/or kV according to patient size (this includes techniques or standardized protocols for targeted exams where dose is matched to indication/reason for exam; i.e. extremities or head) *Use of iterative reconstruction technique DLP: 175 mGy-cm FINDINGS: Central airways are patent. Separate takeoff of the right upper lobe bronchus. Similar consolidative airspace disease of the right middle and lower lobes bronchiectasis and associated volume loss with elevation of the right hemidiaphragm. There is no pleural effusion or pneumothorax. No suspicious pulmonary nodules. The heart is normal in size. There is no pericardial effusion. No appreciable coronary artery calcifications. No gross mediastinal or hilar lymphadenopathy appreciated on today's noncontrast imaging. No pathologically enlarged axillary lymph nodes. Visualized portions of the upper abdomen demonstrate diffusely decreased liver attenuation suggesting hepatic steatosis. No acute osseous abnormality. CT/CT chest wo IV con IMPRESSION: 1. Similar consolidative airspace disease of the right middle and lower lobes with associated bronchiectasis and volume loss. 2. Diffusely decreased liver attenuation suggesting hepatic steatosis. Correlation with liver enzymes recommended. Fleischner guidelines were followed.
== END 2023-09-19 14:45 | disposition home or self-care (01) ==
LOC: HO.CT 14:44
PROVIDERS: PCP Hospitalist; Visit Provider Nurse Practitioner Family
DX: J69.0 Pneumonitis due to inhalation of food and vomit (principal); R09.02 Hypoxemia
CPT/HCPCS: 71250

== ENCOUNTER 2023-10-07 13:42 | Outpatient (AMB) | payer MEDICAID, SELFPAY ==
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
[2023-10-07 13:49] VITALS: BP 128/78; PULSE 104; O2SAT 97
[2023-10-07 14:45] VITALS: PULSE 98; O2SAT 92
== END 2023-10-07 14:45 | disposition home or self-care (01) ==
PROVIDERS: PCP Hospitalist; Visit Provider Nurse Practitioner Family
DX: J45.909 Unspecified asthma, uncomplicated (principal); J69.0 Pneumonitis due to inhalation of food and vomit
CPT/HCPCS: 94618; 99214

== ENCOUNTER → 2023-10-07 13:42 | Outpatient (BNVA) | payer MEDICAID, SELFPAY | PROVIDERS: PCP Hospitalist; Visit Provider Nurse Practitioner Family | DX: J45.40 Moderate persistent asthma, uncomplicated (principal); J69.0 Pneumonitis due to inhalation of food and vomit; R09.02 Hypoxemia; R06.00 Dyspnea, unspecified; Z87.09 Personal history of other diseases of the respiratory system | CPT/HCPCS: 94618; 99212 ==

== ENCOUNTER 2023-12-29 13:55 | Emergency (ER) | payer MEDICAID, SELFPAY ==
[2023-12-29] VITALS (8 sets, daily range): BP systolic 111–160; BP diastolic 80–95; PULSE 81–103; RESP 13–22; TEMP 36.2–36.9; O2SAT 87–98; BMI 34.7
--- NOTE | 2023-12-29 | ECG_ITS ---
Test Reason : CHEST PAIN Blood Pressure : / mmHG Vent. Rate : 091 BPM Atrial Rate : 091 BPM P-R Int : 162 ms QRS Dur : 078 ms QT Int : 344 ms P-R-T Axes : 042 051 027 degrees QTc Int : 423 ms Normal sinus rhythm Normal ECG When compared with ECG of 25-JUL-2023 16:07, No significant change was found Referred By: Generic ED Physician Electronically Signed By:SAGAR KEEN MD
--- NOTE | ~2023-12-29 | XR_ITS ---
EXAMINATION: XR CHEST CLINICAL INFORMATION: Central chest pain COMPARISON: Chest radiograph from 07/25/2023 TECHNIQUE: 2 views of the chest were obtained. FINDINGS: Elevation right hemidiaphragm. Accentuation of the bronchopulmonary vascular markings. Right basilar atelectasis. Potential small right pleural effusion. No pneumothorax. Trachea is midline. Cardiac mediastinal silhouette is stable. Lower cervical spinal hardware partially visualized. Redemonstrated calcifications of the right coracoclavicular ligament. Chronic left proximal humeral fracture. Soft tissues are unremarkable. XR/XR chest 2V IMPRESSION: 1. Elevation right hemidiaphragm. 2. Accentuation of the bronchopulmonary vascular markings. 3. Right basilar atelectasis. 4. Potential small right pleural effusion.
[2023-12-29 15:04] LABS: Troponin-I High Sensitivity < 2.7 ng/L (<3.5-35.0)
--- NOTE | 2023-12-29 16:09 | ED.CHESTPAIN ---
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 He can not provide me with an exact time that this pain started. Reports the pain is squeezing in nature and does not radiate. Denies exacerbating or relieving factors. Denies fever, chills, palpitations, shortness of breath, nausea or vomiting, leg swelling, calf pain/swelling. no recent travel or long car rides. Related Data Home Medications ?Medication ?Instructions ?Recorded ?Confirmed acetaminophen 325 mg tablet 650 mg PO Q6H PRN Fever Or Pain 04/15/23 10/07/23 albuterol sulfate 90 mcg/actuation 2 puff inhalation Q6H PRN Wheezing 04/15/23 10/07/23 aerosol inhaler apixaban 5 mg tablet (Eliquis) 5 mg PO BID 04/15/23 10/07/23 citalopram 10 mg tablet 10 mg PO DAILY 04/15/23 10/07/23 diphenhydramine HCl 25 mg tablet 25 mg PO BEDTIME PRN Sleep 04/15/23 12/29/23 divalproex 500 mg tablet,delayed 500 mg PO BID 04/15/23 12/29/23 release (Depakote) multivitamin 1 tab PO DAILY 04/15/23 10/07/23 olanzapine 10 mg tablet 10 mg PO BEDTIME 04/15/23 10/07/23 ondansetron HCl 4 mg tablet 4 mg PO Q8H PRN Nausea And Vomiting 04/15/23 10/07/23 quetiapine 25 mg tablet 25 mg PO QAM 04/15/23 10/07/23 sennosides 8.6 mg tablet (senna) 8.6 mg PO DAILY PRN Constipation 04/15/23 10/07/23 guaifenesin 100 mg/5 mL oral liquid 300 mg PO Q6H PRN Cough 05/03/23 10/07/23 melatonin 5 mg tablet 5 mg PO BEDTIME 05/03/23 12/29/23 polyvinyl alcohol 1.4 % eye drops 1 drp ophthalmic (eye) Q6H PRN Dry 05/03/23 10/07/23 Eye(S) fluticasone 250 mcg-salmeterol 50 1 inh inhalation BID 06/09/23 10/07/23 mcg/dose blistr powdr for inhalation (Advair Diskus) lorazepam 2 mg/mL injection 1 mg IM DAILY PRN Seizure Activity 06/09/23 10/07/23 solution Previous Rx's ?Medication ?Instructions ?Recorded levetiracetam 1,000 mg tablet 1,000 mg PO BID #60 tabs 04/20/23 mometasone-formoterol HFA 100 2 puff inhalation BID #1 ea 08/02/23 mcg-5 mcg/actuation aerosol inhaler (Dulera) Allergies Allergy/AdvReac Type Severity Reaction Status Date / Time amoxicillin Allergy Anaphylaxis Verified 12/29/23 14:08 sertraline [From Zoloft] Allergy Anaphylaxis Verified 12/29/23 14:08 Review of Systems Review of Systems: Constitutional: No fever, chills, fatigue, night sweats, weight changes ENT/Mouth: No ear pain, hearing loss, nasal congestion, sinus pain, rhinorrhea, sore throat Eyes: No eye pain, swelling, redness, vision changes, discharge Cardio: No palpitations, MELENDEZ, orthopnea, peripheral edema, +chest pain Pulm: No SOB, cough, sputum, wheezing, dyspnea, hemoptysis GI: No nausea, vomiting, hematemesis, abdominal pain, diarrhea, constipation, hematochezia, melena : No irregular bleeding, dysuria, frequency, urgency, hesitancy, hematuria, flank pain, urinary flow changes, urinary incontinence or retention MSK: No back pain, neck pain, joint pain, myalgias Skin: No lesions, rashes Neuro: No weakness, numbness, paresthesias, LOC, dizziness, headache Psych: No anxiety/panic, depression, SI/HI, AH/VH All other systems reviewed and are negative. [facility] Past Medical History Attestation statement: The following information was validated with the patient. Source: old records reviewed and nursing notes reviewed Medical History Epileptic seizure Asthma Acute hypoxic respiratory failure Pneumonia Psychogenic nonepileptic seizure Seizure disorder Chronic anticoagulation TBI (traumatic brain injury) Social History Social History Household Members: Other Housing: Retirement Do you presently have visiting nurse or other home services: No Alcohol intake: never Patient Tobacco Use Status: Never used Tobacco Smoked in Last 30 Days: No e-Cigarette/Vaping Use: Never Used Use of substances other than those prescribed or required for medical reasons: No Advance Directives: No Advance Directives Information Provided: Yes Do you have a plan to hurt others: No Plan service: No Physical Exam Vital Signs: Vital Signs: Last Vital Signs Temp 98.1 F 12/29/23 20:56 Pulse 98 12/29/23 20:56 Resp 13 12/29/23 20:56 BP 138/82 12/29/23 20:56 Pulse Ox 98 12/29/23 20:19 O2 Del Method Nasal Cannula 12/29/23 20:19 O2 Flow Rate 2 12/29/23 20:19 BMI result Body Mass Index 34.7 Vital signs stable, afebrile. No change in baseline hypoxia. Const: General: cooperative, healthy appearing, comfortable and no acute distress Orientation/consciousness: patient oriented x3 Limitations: no limitations HEENT: Head: Yes normal to inspection, Yes No palpable skull fracture present, Yes normocephalic and Yes atraumatic Eyes: General: appearance normal, both eyes and all related structures Neck: Neck: Yes normal visual inspection, Yes full ROM, Yes no lymphadenopathy and Yes no JVD Chest: Chest palpation & inspection: normal inspection of the chest and normal palpation of entire chest wall Resp: Effort & Inspection: normal respiratory effort and able to speak in complete sentences Auscultation: clear to auscultation bilaterally Cardio: Other: No peripheral edema Jugular venous distension: no JVD Rate: regular rate Rhythm: regular rhythm GI: Inspection: Yes normal to inspection Palpation (GI): Soft to palpation and nontender Skin: General skin exam: no rashes or lesions noted Neuro: General: patient oriented x3 Course Course Course Narrative: 1725-- CBC without leukocytosis or left shift. No anemia. H&H stable. Chemistry without acute electrolyte abnormality requiring intervention. Normal renal function. Random glucose 116. Slightly elevated AST, ALT, chronic when compared to priors. Initial troponin undetectable. Will repeat for delta. EKG showing normal sinus rhythm with a rate of 91 beats per minute, QT 344, QTC 423, no acute ischemic changes or ST elevations. > lipase, chest x-ray pending > patient receiving Tylenol for pain control 2345-- Lipase wnl. CXR showing elevation of right hemidiaphragm, accentuation of bronchopulmonary vascular markings, right basilar atelectasis and potential small right pleural effusion. I did compare these findings who chest x-ray obtained in 07/2023 and there are no significant changes found. I have low suspicion that this is cause of patient's symptoms. He reports improvement in chest pain following tylenol. > while in ED, patient had two witnessed seizures lasting only a few minutes. Patient given ativan and midazolam with resolution. Patient does take Depakote and Keppra daily. Depakote levels were noted to be below therapeutic range at 44.9 1000mg IV depakote given. Keppra levels still pending. Patient administered nightly keppra dose prior to discharge. > patient now at baseline. no further seizure activity noted. he is awake, alert, and speaking to me. He states he is tired, hungry, and would like to be transferred back to facility. I feel as though his is reasonable as work up for chief complaint is unremarkable. He is no longer endorsing chest pain. Discussed worrisome signs and symptoms and when to return to the ED. All questions answered at this time. Patient is agreeable with disposition and stable for discharge. Medications Administered Discontinued Medications Generic Name Dose Route Start Last Admin Trade Name Freq PRN Reason Stop Dose Admin Acetaminophen 975 mg 12/29/23 16:27 12/29/23 16:35 Acetaminophen 325 Mg Tablet PO 12/29/23 16:28 975 mg ONCE ONE Administration Valproic Acid 1,000 mg/ 60 mls @ 60 mls/hr 12/29/23 22:15 12/29/23 22:28 Dextrose IV 12/29/23 23:14 60 mls/hr ONCE ONE Administration Lorazepam 2 mg 12/29/23 18:24 12/29/23 18:26 Lorazepam 2 Mg/Ml Vial IM 12/29/23 18:25 2 mg ONCE ONE Administration Midazolam HCl 6 mg 12/29/23 18:29 12/29/23 18:32 Midazolam Hcl/Pf 2 Mg/2 Ml Vial IVPUSH 12/29/23 18:30 6 mg ONCE ONE Administration Midazolam HCl 6 mg 12/29/23 20:55 12/29/23 21:05 Midazolam Hcl/Pf 2 Mg/2 Ml Vial IVPUSH 12/29/23 20:56 6 mg ONCE ONE Administration Medical Decision Making Medical Decision Making [facility] Narrative: 38-year-old male with past medical history of 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 Patient is satting 95% on 2 L nasal cannula which is patient's baseline. Vitals WNL. He is well-appearing. No acute distress. Lying comfortably the exam bed. On exam, no JVD or peripheral edema. No reproducible chest wall tenderness or deformity. RRR. Lungs are CTA bilaterally. Differential diagnosis includes chest pain, ACS, arrhythmia, pneumonia, viral syndrome, GERD, seizure, pseudoseizure Plan for labs, trop, EKG, chest x-ray, pain control and re-evaluation. Differential Diagnosis Differential Diagnoses: The differential diagnosis associated with the presentation includes As above Admission/Observation Not indicated Lab Data [facility] Lab Attestation statement: I reviewed the patient's lab results. As above 12/29/23 16:04 12/29/23 14:23 Labs: Lab Results 12/29/23 12/29/23 12/29/23 Range/Units 14:23 14:26 16:04 WBC 5.8 (4.8-10.8) X10*3/uL RBC 4.94 (4.60-5.80) X10*6/uL Hgb 14.8 (14.0-18.0) g/dl Hct 44.7 (42.0-52.0) % MCV 90.5 (80.0-98.0) fL MCH 30.0 (27.0-33.0) pg MCHC 33.1 (31.0-36.0) g/dl RDW 12.3 (11.0-16.0) % Plt Count 165 (160-400) X10*3/uL MPV 9.0 L (9.4-12.4) fL Immature Gran % (Auto) 0.3 (0.0-0.4) % Neut % (Auto) 47.0 (45-73) % Lymph % (Auto) 45.0 H (20-40) % [place] % (Auto) 6.9 (2-11) % Eos % (Auto) 0.5 (0-4) % Baso % (Auto) 0.3 (0-2) % Lymph # (Auto) 2.6 (1.2-4.9) X10*3/uL [place] # (Auto) 0.4 (0.1-1.2) X10*3/uL Eos # (Auto) 0.0 (0.0-0.4) X10*3/uL Baso # (Auto) 0.0 (0.0-0.2) X10*3/uL Abs Immat Gran (auto) 0.02 (0.00-0.03) X10*3/uL Absolute Neuts (auto) 2.7 (2.0-8.3) x10*3/uL Absolute Nucleated RBC 0.000 (0.0-0.012) X10*3/uL Nucleated RBC % (auto) 0.0 (0.0-0.2) /100WBC Sodium 143 (135-145) mmol/L Potassium 4.1 (3.3-5.1) mmol/L Chloride 103 (96-108) mmol/L Carbon Dioxide 31 H (22-29) mmol/L Anion Gap 13 (12-20) BUN 11 (9-16) mg/dL Creatinine 0.81 (0.5-1.4) mg/dL Estim Creat Clear Calc 133.2 Estimated GFR > 60 POC Glucose (60-115) mg/dL Random Glucose 116 H (60-115) mg/dL Calcium 9.8 (8.4-10.2) mg/dL Total Bilirubin 0.5 (0.0-1.0) mg/dL AST 72 H (5-37) U/L ALT 111 H (0-40) U/L Alkaline Phosphatase 66 (39-117) U/L Troponin I High Sens < 2.7 (<3.5-35.0) ng/L Total Protein 7.7 (6.5-8.0) g/dL Albumin 4.3 (3.5-5.0) g/dL Lipase 75 (8-78) U/L Valproic Acid (50.0-100.0) mcg/mL Influenza Type A (PCR) (Negative) Influenza Type B (PCR) (Negative) RSV RNA Qual (PCR) (Negative) SARS-CoV-2 RNA (RT-PCR) (Negative) 12/29/23 12/29/23 12/29/23 Range/Units 18:25 19:31 20:14 WBC (4.8-10.8) X10*3/uL RBC (4.60-5.80) X10*6/uL Hgb (14.0-18.0) g/dl Hct (42.0-52.0) % MCV (80.0-98.0) fL MCH (27.0-33.0) pg MCHC (31.0-36.0) g/dl RDW (11.0-16.0) % Plt Count (160-400) X10*3/uL MPV (9.4-12.4) fL Immature Gran % (Auto) (0.0-0.4) % Neut % (Auto) (45-73) % Lymph % (Auto) (20-40) % [place] % (Auto) (2-11) % Eos % (Auto) (0-4) % Baso % (Auto) (0-2) % Lymph # (Auto) (1.2-4.9) X10*3/uL [place] # (Auto) (0.1-1.2) X10*3/uL Eos # (Auto) (0.0-0.4) X10*3/uL Baso # (Auto) (0.0-0.2) X10*3/uL Abs Immat Gran (auto) (0.00-0.03) X10*3/uL Absolute Neuts (auto) (2.0-8.3) x10*3/uL Absolute Nucleated RBC (0.0-0.012) X10*3/uL Nucleated RBC % (auto) (0.0-0.2) /100WBC Sodium (135-145) mmol/L Potassium (3.3-5.1) mmol/L Chloride (96-108) mmol/L Carbon Dioxide (22-29) mmol/L Anion Gap (12-20) BUN (9-16) mg/dL Creatinine (0.5-1.4) mg/dL Estim Creat Clear Calc Estimated GFR POC Glucose 101 (60-115) mg/dL Random Glucose (60-115) mg/dL Calcium (8.4-10.2) mg/dL Total Bilirubin (0.0-1.0) mg/dL AST (5-37) U/L ALT (0-40) U/L Alkaline Phosphatase (39-117) U/L Troponin I High Sens < 2.7 (<3.5-35.0) ng/L Total Protein (6.5-8.0) g/dL Albumin (3.5-5.0) g/dL Lipase (8-78) U/L Valproic Acid (50.0-100.0) mcg/mL Influenza Type A (PCR) NEGATIVE (Negative) Influenza Type B (PCR) NEGATIVE (Negative) RSV RNA Qual (PCR) NEGATIVE (Negative) SARS-CoV-2 RNA (RT-PCR) NEGATIVE (Negative) 12/29/23 Range/Units 21:14 WBC (4.8-10.8) X10*3/uL RBC (4.60-5.80) X10*6/uL Hgb (14.0-18.0) g/dl Hct (42.0-52.0) % MCV (80.0-98.0) fL MCH (27.0-33.0) pg MCHC (31.0-36.0) g/dl RDW (11.0-16.0) % Plt Count (160-400) X10*3/uL MPV (9.4-12.4) fL Immature Gran % (Auto) (0.0-0.4) % Neut % (Auto) (45-73) % Lymph % (Auto) (20-40) % [place] % (Auto) (2-11) % Eos % (Auto) (0-4) % Baso % (Auto) (0-2) % Lymph # (Auto) (1.2-4.9) X10*3/uL [place] # (Auto) (0.1-1.2) X10*3/uL Eos # (Auto) (0.0-0.4) X10*3/uL Baso # (Auto) (0.0-0.2) X10*3/uL Abs Immat Gran (auto) (0.00-0.03) X10*3/uL Absolute Neuts (auto) (2.0-8.3) x10*3/uL Absolute Nucleated RBC (0.0-0.012) X10*3/uL Nucleated RBC % (auto) (0.0-0.2) /100WBC Sodium (135-145) mmol/L Potassium (3.3-5.1) mmol/L Chloride (96-108) mmol/L Carbon Dioxide (22-29) mmol/L Anion Gap (12-20) BUN (9-16) mg/dL Creatinine (0.5-1.4) mg/dL Estim Creat Clear Calc Estimated GFR POC Glucose (60-115) mg/dL Random Glucose (60-115) mg/dL Calcium (8.4-10.2) mg/dL Total Bilirubin (0.0-1.0) mg/dL AST (5-37) U/L ALT (0-40) U/L Alkaline Phosphatase (39-117) U/L Troponin I High Sens (<3.5-35.0) ng/L Total Protein (6.5-8.0) g/dL Albumin (3.5-5.0) g/dL Lipase (8-78) U/L Valproic Acid 44.9 L (50.0-100.0) mcg/mL Influenza Type A (PCR) (Negative) Influenza Type B (PCR) (Negative) RSV RNA Qual (PCR) (Negative) SARS-CoV-2 RNA (RT-PCR) (Negative) Independent Interpretation I performed an independent interpretation of an: EKG and Plain X-Ray Interpretation: EKG showing normal sinus rhythm with a rate of 91 beats per minute, QT 344, QTC 423, no acute ischemic changes or ST elevations. Chest x-ray with elevation of right hemidiaphragm, agree with radiologist's interpretation. Radiology Impression Discussion of test interpretation with radiology: I have reviewed the radiologist's reading. Radiologist Impression: EXAMINATION: XR CHEST CLINICAL INFORMATION: Central chest pain COMPARISON: Chest radiograph from 07/25/2023 TECHNIQUE: 2 views of the chest were obtained. FINDINGS: Elevation right hemidiaphragm. Accentuation of the bronchopulmonary vascular markings. Right basilar atelectasis. Potential small right pleural effusion. No pneumothorax. Trachea is midline. Cardiac mediastinal silhouette is stable. Lower cervical spinal hardware partially visualized. Redemonstrated calcifications of the right coracoclavicular ligament. Chronic left proximal humeral fracture. Soft tissues are unremarkable. XR/XR chest 2V IMPRESSION: 1. Elevation right hemidiaphragm. 2. Accentuation of the bronchopulmonary vascular markings. 3. Right basilar atelectasis. 4. Potential small right pleural effusion. Independent Historian Clinical information obtained from an independent historian. History obtained from or confirmed by: EMS External Record Review External record reviewed: Inpatient record, Office record, Outpatient record, Prior outpatient labs, Prior outpatient radiology, Primary care record and Outside ED record Chronic Conditions Patient?s care impacted by: Other (Epilepsy) Social Determinants Patient?s care significantly limited by Social Determinants of Health including: Other Social Determinant of Health Scores Heart Score History: -1- moderately suspicious ECG: -0- normal Age: -0- < or = 45 Risk factory: -0- no risk factors known Troponin: -0- < or = normal limit Score: 1 Risk: 1.7% Critical Care Time Critical Care Time Critical Care Time: No Discharge Plan Discharge Clinical Impression: Chest pain, Seizure Patient Disposition: Xfer SNF Transfer Details: [facility] Instructions: Levetiracetam (By mouth), Valproic Acid (By mouth) Additional Instructions: Your blood work today is reassuring. Your EKG is normal. You tested negative for covid/flu/rsv. You were treated in the ED for your seizures today. Your blood depakote levels were noted to be lower than therapuetic range. Make sure you are taking all seizure medications as prescribed. Do not skip any doses. Follow up with your neurologist or PCP regarding today's visit. Return with new or worsening symptoms. In the case of an emergency call 911. Prescriptions: No Action polyvinyl alcohol 1.4 % Drops 1 drp OPHTHALMIC (EYE) Q6H PRN (Reason: Dry Eye(S)) guaifenesin 100 mg/5 mL Liquid 300 mg PO Q6H PRN (Reason: Cough) melatonin 5 mg Tablet 5 mg PO BEDTIME multivitamin Tablet 1 tab PO DAILY quetiapine 25 mg Tablet 25 mg PO QAM sennosides [senna] 8.6 mg Tablet 8.6 mg PO DAILY PRN (Reason: Constipation) acetaminophen 325 mg Tablet 650 mg PO Q6H PRN (Reason: Fever Or Pain) citalopram 10 mg Tablet 10 mg PO DAILY ondansetron HCl 4 mg Tablet 4 mg PO Q8H PRN (Reason: Nausea And Vomiting) olanzapine 10 mg Tablet 10 mg PO BEDTIME divalproex [Depakote] 500 mg Tablet,Delayed Release (Dr/Ec) 500 mg PO BID diphenhydramine HCl 25 mg Tablet 25 mg PO BEDTIME PRN (Reason: Sleep) albuterol sulfate 90 mcg/actuation Hfa Aerosol Inhaler 2 puff INHALATION Q6H PRN (Reason: Wheezing) Eliquis 5 mg Tablet 5 mg PO BID levetiracetam 1,000 mg Tablet 1,000 mg PO BID Qty: 60 0RF fluticasone propion-salmeterol [Advair Diskus] 250-50 mcg/dose Blister With Device 1 inh INHALATION BID Rx Instructions: rinse mouth after use lorazepam 2 mg/mL Solution 1 mg IM DAILY PRN (Reason: Seizure Activity) Rx Instructions: until hemodynamically stable Dulera 100-5 mcg/actuation HFA aerosol inhaler 2 puff inhalation BID Qty: 1 3RF Print Language: Mongolian
[2023-12-29 16:12] LABS: Basophils Percent Auto 0.3 % (0-2); Eosinophils Percent Auto 0.5 % (0-4); Hematocrit 44.7 % (42.0-52.0); Hemoglobin 14.8 g/dl (14.0-18.0); Imm Gran Abs Auto 0.02 X10*3/uL (0.00-0.03); Imm Gran Pct Auto 0.3 % (0.0-0.4); Lymphocytes Absolute Auto 2.6 X10*3/uL (1.2-4.9); Mean Corpuscular HGB Conc 33.1 g/dl (31.0-36.0); Mean Corpuscular Volume 90.5 fL (80.0-98.0); Monocytes Absolute Auto 0.4 X10*3/uL (0.1-1.2); Monocytes Percent Auto 6.9 % (2-11); Neutrophils Absolute Auto 2.7 x10*3/uL (2.0-8.3); Platelet Count 165 X10*3/uL (160-400); Red Blood Count 4.94 X10*6/uL (4.60-5.80); Red Cell Distribution Width 12.3 % (11.0-16.0); White Blood Count 5.8 X10*3/uL (4.8-10.8)
[2023-12-29] MEDS: Acetaminophen 325 MG TABLET 975 MG PO (16:35)
--- NOTE | 2023-12-29 16:36 | PC.NURSE ---
pt medicated per provider order. effectiveness pending.
[2023-12-29 16:48] LABS: Alanine Aminotransferase 111 U/L (0-40); Albumin Level 4.3 g/dL (3.5-5.0); Alkaline Phosphatase 66 U/L (39-117); Anion Gap 13 (12-20); Aspartate Amino Transferase 72 U/L (5-37); Bilirubin Total 0.5 mg/dL (0.0-1.0); Blood Urea Nitrogen 11 mg/dL (9-16); Calcium 9.8 mg/dL (8.4-10.2); Carbon Dioxide 31 mmol/L (22-29); Chloride 103 mmol/L (96-108); Creatinine Clr Calc Pharmacy 133.2; Estimated Glomerular Filt Rate > 60; Glucose Random 116 mg/dL (60-115); Potassium 4.1 mmol/L (3.3-5.1); Sodium 143 mmol/L (135-145); Total Protein 7.7 g/dL (6.5-8.0)
[2023-12-29 18:05] LABS: Lipase 75 U/L (8-78)
--- NOTE | 2023-12-29 18:23 | PC.NURSE ---
pt to xray at this time.
[2023-12-29] MEDS: LORazepam 2 MG/ML VIAL IM (18:26)
[2023-12-29 18:31] LABS: Glucose, Whole Blood 101 mg/dL (60-115)
[2023-12-29] MEDS: Midazolam HCl/PF 2 MG/2 ML VIAL 6 MG IVPUSH ×2 (18:32→21:05)
--- NOTE | 2023-12-29 18:46 | PC.NURSE ---
pt was in xray when he notified broadcast operations technician's, i think i'm going to have a seizure. pt then proceeded to have witnessed seizure in xray room. upon returning to ED9 - no IV access in place. 2mg ativan administered via IM in right deltoid at 1826. no positive effect noted. 20gIV then placed in pt's left forearm/wrist. 6mg versed administered via IV at 1832. good effect noted. no trauma noted during seizure. no incontinence noted. vss and up to date aside from being slightly tachycardic on the monitor. pt in post-ictal state at this time. seemingly confused/not following commands/answering questions appropriately. no sob/wob noted. respirations even/unlabored. seizure pads in place for safety precautions. plan of care ongoing.
[2023-12-29 20:15] LABS: Influenza A PCR NEGATIVE (Negative); Influenza B PCR NEGATIVE (Negative); Resp Syncy Virus RNA Qual PCR NEGATIVE (Negative); SARS COV2 PCR INHOUSE NEGATIVE (Negative)
[2023-12-29 20:41] LABS: Troponin-I High Sensitivity < 2.7 ng/L (<3.5-35.0)
[2023-12-29 21:40] LABS: Valproate 44.9 mcg/mL (50.0-100.0)
[2023-12-29] MEDS: Valproic Acid (as Sodium Salt) 1,000 MG in Dextrose 5 % 50 ML 60 MG IV (22:28)
[2023-12-30] MEDS: levETIRAcetam 500 MG TABLET 1500 MG PO (00:41)
[2023-12-30 03:30] VITALS: BP 102/60; PULSE 82; RESP 12; TEMP 36.8; O2SAT 97
[2023-12-30 04:30] VITALS: BP 102/60; PULSE 82; RESP 12; TEMP 36.8; O2SAT 97
[2024-01-03 15:54] LABS: Levetiracetam Keppra 15.4 mcg/mL (6.0-46.0)
== END 2023-12-30 04:30 | disposition skilled nursing facility (03) ==
PROVIDERS: Physician Assistant Medical; Emergency Provider Emergency Medicine
DX: R07.9 Chest pain, unspecified (principal); R56.9 Unspecified convulsions; Z03.818 Encounter for observation for suspected exposure to other biological agents ruled out; R06.00 Dyspnea, unspecified; J45.909 Unspecified asthma, uncomplicated
CPT/HCPCS: 0241U; 36415; 71046; 80053; 80164; 80177; 82947; 83690; 84484; 85025; 93005; 96365; 96366; 96372; 96375; 96376; 99285; J2060; J2250

== ENCOUNTER → 2023-12-29 14:18 | Outpatient (BNV) | payer MEDICAID, SELFPAY | PROVIDERS: Emergency Provider Emergency Medicine; Visit Provider Internal Medicine Cardiovascular Disease | DX: R07.9 Chest pain, unspecified (principal) | CPT/HCPCS: 93010 ==

== ENCOUNTER 2023-12-30 13:54 | Emergency (ER) | payer MEDICAID, SELFPAY ==
--- NOTE | 2023-12-30 14:03 | ED.SEIZURE ---
HPI - Seizure General Chief Complaint: Seizure Stated Complaint: SEIZURE Time Seen by Provider: 12/30/23 13:58 Source: patient, EMS and old records reviewed Mode of arrival: EMS Limitations: no limitations and altered mental status History of Present Illness ED Provider: ALEXSANDRA SZYMANSKI Narrative: 38 yo male with PMH of TBI, seizures/pseudoseizures on Keppra and Depakote, enlarged liver, PTSD, GERD, chronic O2 use post pneumonia, on Eliquis 5 mg b.i.d, mood disorder here with c/o [facility] was given atarax and ativan IM - seen here yesterday and reported seizure in ED given IV depakote for low level, keppra night dose, IV versed and ativan. On arrival today he states he had a seizure. Very limited information. MD complaint: possible seizure Onset (ago): day(s) (this AM) Description of Episode: loss of consciousness and tonic-clonic movement Witnessed: Yes - by Bystander Trauma: No Seizure History: Yes Place: Home Possible Precipitating Event: none Associated symptoms: denies other symptoms Treatments prior to arrival: benzodiazepines Related Data Home Medications ?Medication ?Instructions ?Recorded ?Confirmed acetaminophen 325 mg tablet 650 mg PO Q6H PRN Fever Or Pain 04/15/23 10/07/23 albuterol sulfate 90 mcg/actuation 2 puff inhalation Q6H PRN Wheezing 04/15/23 10/07/23 aerosol inhaler apixaban 5 mg tablet (Eliquis) 5 mg PO BID 04/15/23 10/07/23 citalopram 10 mg tablet 10 mg PO DAILY 04/15/23 10/07/23 diphenhydramine HCl 25 mg tablet 25 mg PO BEDTIME PRN Sleep 04/15/23 12/29/23 divalproex 500 mg tablet,delayed 500 mg PO BID 04/15/23 12/29/23 release (Depakote) multivitamin 1 tab PO DAILY 04/15/23 10/07/23 olanzapine 10 mg tablet 10 mg PO BEDTIME 04/15/23 10/07/23 ondansetron HCl 4 mg tablet 4 mg PO Q8H PRN Nausea And Vomiting 04/15/23 10/07/23 quetiapine 25 mg tablet 25 mg PO QAM 04/15/23 10/07/23 sennosides 8.6 mg tablet (senna) 8.6 mg PO DAILY PRN Constipation 04/15/23 10/07/23 guaifenesin 100 mg/5 mL oral liquid 300 mg PO Q6H PRN Cough 05/03/23 10/07/23 melatonin 5 mg tablet 5 mg PO BEDTIME 05/03/23 12/29/23 polyvinyl alcohol 1.4 % eye drops 1 drp ophthalmic (eye) Q6H PRN Dry 05/03/23 10/07/23 Eye(S) fluticasone 250 mcg-salmeterol 50 1 inh inhalation BID 06/09/23 10/07/23 mcg/dose blistr powdr for inhalation (Advair Diskus) lorazepam 2 mg/mL injection 1 mg IM DAILY PRN Seizure Activity 06/09/23 10/07/23 solution Previous Rx's ?Medication ?Instructions ?Recorded levetiracetam 1,000 mg tablet 1,000 mg PO BID #60 tabs 04/20/23 mometasone-formoterol HFA 100 2 puff inhalation BID #1 ea 08/02/23 mcg-5 mcg/actuation aerosol inhaler (Dulera) Allergies Allergy/AdvReac Type Severity Reaction Status Date / Time amoxicillin Allergy Anaphylaxis Verified 12/30/23 14:14 sertraline [From Zoloft] Allergy Anaphylaxis Verified 12/30/23 14:14 Review of Systems Review of Systems: Constitutional : No Fever, No Chills, No Fatigue ENT/Mouth : No sore throat, No Rhinorrhea Eyes: No Eye Pain, No Swelling, No Redness Cardiovascular : No Chest Pain, No SOB, No Dyspnea on Exertion Respiratory : No Cough, No Sputum Gastrointestinal : No Nausea, No Vomiting, No Diarrhea, No abdominal Pain Genitourinary : No Dysuria, No Urinary Frequency, No Hematuria, Musculoskeletal : No joint pain, No Myalgias, No Joint Swelling Skin : No Skin Lesions, No rash Neuro : No Weakness, No Numbness, No Dizziness, no Headache, pos seizure activity Psych : No Anxiety/Panic, No Depression All other systems reviewed and are negative [facility] Past Medical History Attestation statement: The following information was validated with the patient. Source: old records reviewed Medical History Epileptic seizure Asthma Acute hypoxic respiratory failure Pneumonia Psychogenic nonepileptic seizure Seizure disorder Chronic anticoagulation TBI (traumatic brain injury) Social History Social History Household Members: Other Housing: [facility] Do you presently have visiting nurse or other home services: No Alcohol intake: never Patient Tobacco Use Status: Never used Tobacco e-Cigarette/Vaping Use: Never Used Advance Directives: No Advance Directives Information Provided: Yes service: No Physical Exam Vital Signs: Vital Signs: Last Vital Signs Temp 97.9 F 12/30/23 15:57 Pulse 100 12/30/23 15:57 Resp 16 12/30/23 15:57 BP 150/82 H 12/30/23 15:57 Pulse Ox 97 12/30/23 15:57 O2 Del Method Nasal Cannula 12/30/23 15:57 O2 Flow Rate 2 12/30/23 15:57 BMI result Body Mass Index 38.4 Appearance: Alert. Oriented X2. No acute distress. Eyes: Pupils equal, round and reactive to light. ENT: Pharynx normal. atraumatic Neck: Normal inspection. Neck supple. CVS: Normal heart rate and rhythm. Pulses normal. Respiratory: No respiratory distress. Breath sounds normal. Abdomen: Soft and nontender. Skin: Skin warm and dry. Normal skin color. Normal skin turgor. Extremities: No lower extremity edema. No calf ttp Neuro: Oriented X 2. moves all extremities, localizes to pain Course Course Course Narrative: 215pm witnessed pseudoseizure he started to grind his teeth move his R arm upwards rolled his eyes back I did a jaw thrust and he yelled ow I then told him to stop and he did immediately and said okay. Reevaluation(s) Reevaluation #1: signed out to Parth pending labs Medical Decision Making Medical Decision Making MDM Narrative: 38 yo male TBI, seizures/pseudoseizures on Keppra and Depakote, enlarged liver, PTSD, GERD, chronic O2 use post pneumonia, on Eliquis 5 mg b.i.d., mood disorder here with reported seizure activity at [facility] very limited history given and in front of me had seizure episode that was clearly not real and broke after I did jaw thrust and told him to stop at this time will monitor repeat depakote level and observe. Differential Diagnosis Differential Diagnoses: The differential diagnosis associated with the presentation includes seizure, non epileptic seizure Admission/Observation Consideration of admission/observation: Escalation of care including admission/observation considered labs reassuring no further events can be sent home Lab Data MDM Lab Attestation statement: I reviewed the patient's lab results. Independent Interpretation I performed an independent interpretation of an: EKG Interpretation: Rate: Rhythm: [place]: Normal P waves. Normal JOMAR. Normal QRS complex. ST T wave : qTC: prior studies: The study has been interpreted contemporaneously by me. . Independent Historian Clinical information obtained from an independent historian. History obtained from or confirmed by: EMS External Record Review External record reviewed: Inpatient record Discharge Plan Discharge Clinical Impression: Psychogenic nonepileptic seizure Patient Disposition: Home, Self-Care Instructions: Conversion Disorder (ED) Additional Instructions: in ED today had witnessed non epileptic seizure that stopped with tactile stimuli and verbally told him to stop which he did. no medications given. Prescriptions: No Action polyvinyl alcohol 1.4 % Drops 1 drp OPHTHALMIC (EYE) Q6H PRN (Reason: Dry Eye(S)) guaifenesin 100 mg/5 mL Liquid 300 mg PO Q6H PRN (Reason: Cough) melatonin 5 mg Tablet 5 mg PO BEDTIME multivitamin Tablet 1 tab PO DAILY quetiapine 25 mg Tablet 25 mg PO QAM sennosides [senna] 8.6 mg Tablet 8.6 mg PO DAILY PRN (Reason: Constipation) acetaminophen 325 mg Tablet 650 mg PO Q6H PRN (Reason: Fever Or Pain) citalopram 10 mg Tablet 10 mg PO DAILY ondansetron HCl 4 mg Tablet 4 mg PO Q8H PRN (Reason: Nausea And Vomiting) olanzapine 10 mg Tablet 10 mg PO BEDTIME divalproex [Depakote] 500 mg Tablet,Delayed Release (Dr/Ec) 500 mg PO BID diphenhydramine HCl 25 mg Tablet 25 mg PO BEDTIME PRN (Reason: Sleep) albuterol sulfate 90 mcg/actuation Hfa Aerosol Inhaler 2 puff INHALATION Q6H PRN (Reason: Wheezing) Eliquis 5 mg Tablet 5 mg PO BID levetiracetam 1,000 mg Tablet 1,000 mg PO BID Qty: 60 0RF fluticasone propion-salmeterol [Advair Diskus] 250-50 mcg/dose Blister With Device 1 inh INHALATION BID Rx Instructions: rinse mouth after use lorazepam 2 mg/mL Solution 1 mg IM DAILY PRN (Reason: Seizure Activity) Rx Instructions: until hemodynamically stable Dulera 100-5 mcg/actuation HFA aerosol inhaler 2 puff inhalation BID Qty: 1 3RF Print Language: Arabic
[2023-12-30 14:12] VITALS: BP 151/85; PULSE 101; RESP 18; TEMP 36.8; O2SAT 94; BMI 38.4
--- NOTE | 2023-12-30 14:25 | ECG_ITS ---
Test Reason : SEIZURE Blood Pressure : / mmHG Vent. Rate : 101 BPM Atrial Rate : 101 BPM P-R Int : 150 ms QRS Dur : 086 ms QT Int : 310 ms P-R-T Axes : 038 040 013 degrees QTc Int : 401 ms Sinus tachycardia Cannot rule out Anterior infarct , age undetermined Abnormal ECG When compared with ECG of 29-DEC-2023 14:18, Non-specific change in ST segment in Inferior leads Nonspecific T wave abnormality, worse in Lateral leads Referred By: Vanessa Peralta Electronically Signed By:SAGAR KEEN MD
[2023-12-30 15:57] VITALS: BP 150/82; PULSE 100; RESP 16; TEMP 36.6; O2SAT 97
[2023-12-30 16:23] LABS: MANUAL DIFF FLAG NO
[2023-12-30 16:28] LABS: Appearance Urine Clear; Color Urine Yellow; Glucose Urine UA Negative (Negative); Leukocyte Esterase Urine Negative (Negative); Nitrite Urine Negative (Negative); Specific Gravity - Urine <= 1.005 (1.005-1.025); Urine Blood Negative (Negative); Urine Ketones Negative (Negative); Urine Protein Trace mg/dL (Neg-Trace)
[2023-12-30 16:44] LABS: Valproate 42.5 mcg/mL (50.0-100.0)
[2023-12-30 16:48] LABS: Alanine Aminotransferase 120 U/L (0-40); Albumin Level 4.3 g/dL (3.5-5.0); Alkaline Phosphatase 66 U/L (39-117); Anion Gap 17 (12-20); Aspartate Amino Transferase 100 U/L (5-37); Bilirubin Direct 0.1 mg/dL (0.0-0.5); Bilirubin Total 0.5 mg/dL (0.0-1.0); Blood Urea Nitrogen 10 mg/dL (9-16); Calcium 9.6 mg/dL (8.4-10.2); Carbon Dioxide 24 mmol/L (22-29); Chloride 105 mmol/L (96-108); Creatinine Clr Calc Pharmacy 114.5; Estimated Glomerular Filt Rate > 60; Glucose Random 183 mg/dL (60-115); Magnesium 1.9 mg/dL (1.6-2.6); Potassium 4.2 mmol/L (3.3-5.1); Sodium 142 mmol/L (135-145); Total Protein 8.1 g/dL (6.5-8.0)
[2023-12-30 17:10] LABS: Basophils Percent Auto 0.1 % (0-2); Eosinophils Absolute Auto 0.1 X10*3/uL (0.0-0.4); Eosinophils Percent Auto 0.7 % (0-4); Hemoglobin 15.1 g/dl (14.0-18.0); Imm Gran Abs Auto 0.02 X10*3/uL (0.00-0.03); Imm Gran Pct Auto 0.3 % (0.0-0.4); Lymphocytes Absolute Auto 2.1 X10*3/uL (1.2-4.9); Lymphocytes Percent Auto 31.3 % (20-40); Mean Corpuscular HGB Conc 33.6 g/dl (31.0-36.0); Mean Corpuscular Hemoglobin 30.4 pg (27.0-33.0); Mean Corpuscular Volume 90.5 fL (80.0-98.0); Mean Platelet Volume 9.6 fL (9.4-12.4); Monocytes Absolute Auto 0.4 X10*3/uL (0.1-1.2); Monocytes Percent Auto 5.4 % (2-11); Neutrophils Absolute Auto 4.2 x10*3/uL (2.0-8.3); Neutrophils Percent Auto 62.2 % (45-73); Platelet Count 162 X10*3/uL (160-400); Red Blood Count 4.97 X10*6/uL (4.60-5.80); Red Cell Distribution Width 12.4 % (11.0-16.0); White Blood Count 6.8 X10*3/uL (4.8-10.8)
[2023-12-30 17:59] VITALS: BP 130/97; PULSE 72; RESP 16; TEMP 36.6; O2SAT 97
--- NOTE | 2023-12-30 18:49 | PC.NURSE ---
[facility] care of pt. pt lying on stretcher, no acute distress, continuing plan of care for DC with Branden.
--- NOTE | 2023-12-30 18:56 | PC.NURSE ---
Report called to RN at [facility] that pt. is coming back and is leaving [facility] against medical advice.
[2023-12-30 19:16] VITALS: BP 130/97; PULSE 72; RESP 16; TEMP 36.6; O2SAT 97
== END 2023-12-30 19:27 | disposition home or self-care (01) ==
PROVIDERS: Emergency Medicine; Emergency Provider Emergency Medicine; PCP Hospitalist
DX: R56.9 Unspecified convulsions (principal); R00.0 Tachycardia, unspecified; Z79.01 Long term (current) use of anticoagulants; Z79.899 Other long term (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
CPT/HCPCS: 36415; 80048; 80076; 80164; 81003; 83735; 85025; 93005; 99283; 99284

== ENCOUNTER → 2023-12-30 14:25 | Outpatient (BNV) | payer MEDICAID, SELFPAY | PROVIDERS: Emergency Provider Emergency Medicine; PCP Hospitalist; Visit Provider Internal Medicine Cardiovascular Disease | DX: R94.31 Abnormal electrocardiogram [ECG] [EKG] (principal) | CPT/HCPCS: 93010 ==

== ENCOUNTER 2024-01-11 14:56 | Outpatient (AMB) | payer MEDICAID, SELFPAY ==
[2024-01-11 15:10] VITALS: BP 120/86; PULSE 90; O2SAT 94; BMI 38.8
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
== END 2024-01-11 15:43 | disposition home or self-care (01) ==
PROVIDERS: PCP Hospitalist; Visit Provider Nurse Practitioner Family
DX: J45.40 Moderate persistent asthma, uncomplicated (principal); Z87.09 Personal history of other diseases of the respiratory system; R09.02 Hypoxemia; R06.00 Dyspnea, unspecified
CPT/HCPCS: 99213

== ENCOUNTER → 2024-01-11 14:56 | Outpatient (BNVA) | payer MEDICAID, SELFPAY | PROVIDERS: PCP Hospitalist; Visit Provider Nurse Practitioner Family | DX: J45.40 Moderate persistent asthma, uncomplicated (principal); R09.02 Hypoxemia; R06.00 Dyspnea, unspecified; Z87.09 Personal history of other diseases of the respiratory system | CPT/HCPCS: 99212 ==

== ENCOUNTER 2024-02-14 12:52 | Outpatient (AMB) | payer MEDICAID, SELFPAY ==
[2024-02-14 12:55] VITALS: BP 122/84; PULSE 93; BMI 38.7
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
== END 2024-02-14 13:39 | disposition home or self-care (01) ==
PROVIDERS: PCP Hospitalist; Visit Provider Internal Medicine Cardiovascular Disease
DX: J96.11 Chronic respiratory failure with hypoxia (principal)
CPT/HCPCS: 99214

== ENCOUNTER → 2024-02-14 12:52 | Outpatient (BNVA) | payer MEDICAID, SELFPAY | PROVIDERS: PCP Hospitalist; Visit Provider Internal Medicine Cardiovascular Disease | DX: J96.11 Chronic respiratory failure with hypoxia (principal) | CPT/HCPCS: 99212 ==

== ENCOUNTER 2024-03-08 13:23 | Outpatient (AMB) | payer MEDICAID, SELFPAY ==
--- NOTE | 2024-03-08 13:26 | MHC.OFFVIS ---
Vital Signs 03/08/24 14:04 Height 5 ft 1 in Weight 206 lb 5.643 oz BMI 39.0 BP 141/90 H Blood Pressure Location Lt brachial Position Sitting Pulse 85 Intake Visit Reasons: Hepatomegaly Intake Note: New patient in office today for hepatomegaly. CC: Patient denies having any GI symptoms today. Accompanied by: PRIMARY THERAPIST Allergies amoxicillin Allergy (Verified 01/11/24 15:15) Anaphylaxis sertraline [From Zoloft] Allergy (Verified 01/11/24 15:15) Anaphylaxis HPI HPI Hepatomegaly: Details: 38-year-old male here for initial evaluation of hepatomegaly. He is referred by Sharon. PMX - BMI of 39 Asthma Chronic respiratory failure - on oxygen N/C History of aspiration pneumonia Hypertension History of shoulder dislocations Posttraumatic seizure disorder Bipolar disorder/conversion disorder Dementia Traumatic brain injury Gallstones History of alcohol and cocaine abuse Dry eye syndrome Constipation History of chronic respiratory failure with hypoxia * SURGICAL HISTORY Pt denies * ALLERGIES Amoxicillin Sertraline * [facility] LABS: Laboratory Tests 06/13/23 12/30/23 06:13 16:19 WBC 6.8 Hgb 15.1 Hct 45.0 Plt Count 162 Estimated GFR > 60 Total Bilirubin 0.5 AST 100 H ALT 120 H Alkaline Phosphatase 66 HIV 1&2 Ab/P24 Ag 4thGn Nonreactive US ABD 11/08/22 FINDINGS: PANCREAS: Largely obscured by bowel gas, limiting evaluation. LIVER: Liver is enlarged measuring 17.3 cm in span. The liver contour is normal. Parenchymal echogenicity is normal. No definite focal lesion is seen, but evaluation is limited due to poor sound beam penetration through the coarse echogenic liver parenchyma. There is no intrahepatic biliary duct dilatation seen. GALLBLADDER: Negative sonographic Fernandez sign. Cholelithiasis is present. Gallbladder is contracted with no significant distention to suggest cholecystitis. No pericholecystic fluid. COMMON BILE DUCT: Not identified sonographically. RIGHT KIDNEY: Normal. No hydronephrosis. No renal calculi or focal parenchymal lesions. The kidney measures 9.9 cm in maximum dimension. FREE FLUID: None. US/US abdomen limited IMPRESSION: Cholelithiasis without evidence of acute cholecystitis. Liver is mildly enlarged. Increased hepatic echogenicity which can be seen in the setting of hepatic steatosis or underlying liver disease. Pancreas was largely obscured by bowel gas limiting evaluation and the common bile duct was not identified sonographically. TODAY'S VISIT HE is here today with a transport staff who is completely unhelpful. Pt denies any FHX of liver disease. He is [place]. He has no signs or symptoms of liver disease. He has chronic respiratory failure is on oxygen and right-sided hemiparesis which likely affects his exercise status and may hinder weight loss. I explained that my job will be to investigate to make sure there is no other reversible causes contributing to the liver disease. With this in mind he will go get his blood work today and we will call his facility to order an updated ultrasound. ROV 8 weeks. [facility] Medical History Asthma Chronic anticoagulation History of acute respiratory failure Hypoxia Aspiration pneumonia Acute and chronic respiratory failure with hypoxia Rhabdomyolysis Hypernatremia Pneumonia Epileptic seizure Acute hypoxic respiratory failure Pneumonia Psychogenic nonepileptic seizure Seizure disorder TBI (traumatic brain injury) Social History Household Members: Other Housing: [facility]-Way Do you presently have visiting nurse or other home services: No Alcohol intake: never Patient Tobacco Use Status: Never used Tobacco e-Cigarette/Vaping Use: Never Used service: No Review of Systems Const Denies fatigue, Denies fever(s), Denies night sweats, Denies poor appetite and Denies weight loss ENT Reports Normal hearing present, Denies dental pain, Denies dysphagia, Denies hearing loss, Denies mouth pain, Denies odynophagia, Denies throat swelling, Denies tongue swelling and Reports other (Dentition adequate) Card Reports no additional complaints and Reports dyspnea on exertion Resp Reports dyspnea on exertion GI Details: Denies abdominal pain, Denies melena, Denies bloating, Denies hematochezia, Denies constipation, Denies GI cramping, Denies dysphagia, Denies excessive flatus, Denies early satiety, Denies heartburn, Denies diarrhea, Denies nausea, Denies odynophagia, Denies vomiting and Denies hematemesis Skin/Breast Denies pruritus, Denies lesions, Denies rash and Denies jaundice Neuro Reports Normal hearing present, Denies Abnormal speech present, Reports focal weakness and Reports memory loss Psych Reports depression and Reports memory loss Endo Denies fatigue Aller/Immun Denies throat swelling and Denies tongue swelling Physical Exam Vital Signs: Last Vital Signs Pulse 85 03/08/24 14:04 BP 141/90 H 03/08/24 14:04 BMI result Body Mass Index 39.0 Const General: cooperative, no acute distress, well developed and well groomed Nutritional Appearance: well nourished and obese morbidly obese Orientation/consciousness: oriented to person, oriented to place and oriented to time Limitations: No language barrier and other limitations HEENT Head: Yes normocephalic and Yes atraumatic Eyes General: appearance normal, both eyes and all related structures Pupils: Equal, round and reactive pupils present Neck Neck: Yes normal visual inspection and Yes no lymphadenopathy Thyroid: Thyroid normal Neck images: 1. trach scar well healed Resp Other: on oxygen via n/c Effort & Inspection: normal respiratory effort and able to speak in complete sentences Auscultation: breath sounds absent on the right Cardio Rate: regular rate Rhythm: regular rhythm Heart sounds: Normal, physiologic split S2 sound present Peripheral pulses: radial pulses present and posterior tibial pulses present GI Inspection: No distended, Yes Abdominal panniculus present and Yes obesity Palpation (GI): Soft to palpation, nontender, no guarding, not rigid and No hepatosplenomegaly present Percussion: Yes normal to percussion Auscultation: normal bowel sounds Rectal Exam - Male: Yes deferred Skin General skin exam: no rashes or lesions noted, turgor normal, skin not dry, no jaundice, No spider nevi and no striae Rashes: no rashes Nails: normal Neuro General: oriented to person, oriented to place and oriented to time Cranial nerves: Yes Equal, round and reactive pupils present and Yes Normal hearing present Speech: No Abnormal speech present Motor exam (neuro): Abnormal motor strength present (right U/e weakness/paresis) and Abnormal muscle tone present (RUE) Extrem General: No clubbing, No cyanosis and No edema Right upper extremity: abnormal to inspection Psych Appearance: grossly normal and well kempt Mental Status: mental status grossly normal Speech and movement: Slowed speech present (Psych) Affect: normal affect Attitude: cooperative Thought process: not confabulating and Impoverished thought process present Thought content: Normal thought content present Insight: Poor insight present (Psych) Judgement: Poor judgement present (Psych) Results Reviewed Results Reviewed: Laboratory Tests 06/13/23 12/30/23 06:13 16:19 WBC 6.8 Hgb 15.1 Hct 45.0 Plt Count 162 Estimated GFR > 60 Total Bilirubin 0.5 AST 100 H ALT 120 H Alkaline Phosphatase 66 HIV 1&2 Ab/P24 Ag 4thGn Nonreactive US ABD 11/08/22 FINDINGS: PANCREAS: Largely obscured by bowel gas, limiting evaluation. LIVER: Liver is enlarged measuring 17.3 cm in span. The liver contour is normal. Parenchymal echogenicity is normal. No definite focal lesion is seen, but evaluation is limited due to poor sound beam penetration through the coarse echogenic liver parenchyma. There is no intrahepatic biliary duct dilatation seen. GALLBLADDER: Negative sonographic Fernandez sign. Cholelithiasis is present. Gallbladder is contracted with no significant distention to suggest cholecystitis. No pericholecystic fluid. COMMON BILE DUCT: Not identified sonographically. RIGHT KIDNEY: Normal. No hydronephrosis. No renal calculi or focal parenchymal lesions. The kidney measures 9.9 cm in maximum dimension. FREE FLUID: None. US/US abdomen limited IMPRESSION: Cholelithiasis without evidence of acute cholecystitis. Liver is mildly enlarged. Increased hepatic echogenicity which can be seen in the setting of hepatic steatosis or underlying liver disease. Pancreas was largely obscured by bowel gas limiting evaluation and the common bile duct was not identified sonographically Assessment & Plan Assessment & Plan (1) Obesity: Code(s): E66.9 - Obesity, unspecified Category: Medical (2) Transaminitis: Comment: BASELINE LABS 06/13/2306/28/24 06:1316:19 WBC 6.8 Hgb 15.1 Hct 45.0 Plt Count 162 Estimated GFR > 60 Total Bilirubin 0.5 AST 100 H ALT 120 H Alkaline Phosphatase 66 HIV 1&2 Ab/P24 Ag 4thGn Nonreactive Code(s): R74.01 - Elevation of levels of liver transaminase levels Category: Medical Plan HE is here today with a transport staff who is completely unhelpful. Pt denies any FHX of liver disease. He is [place]. He has no signs or symptoms of liver disease. He has chronic respiratory failure is on oxygen and right-sided hemiparesis which likely affects his exercise status and may hinder weight loss. I explained that my job will be to investigate to make sure there is no other reversible causes contributing to the liver disease. With this in mind he will go get his blood work today and we will call his facility to order an updated ultrasound. ROV 8 weeks. Orders: Orders Smooth Muscle Antibody Today R74.01 - Elevation of levels of liver transaminase levels Alpha Fetoprotein Today R74.01 - Elevation of levels of liver transaminase levels Ferritin Today R74.01 - Elevation of levels of liver transaminase levels Hepatitis A,B,C Profile Today R74.01 - Elevation of levels of liver transaminase levels Mitochondrial Antibody Today R74.01 - Elevation of levels of liver transaminase levels Liver Fibrosis Pnl Today R74.01 - Elevation of levels of liver transaminase levels US abdomen complete Today R74.01 - Elevation of levels of liver transaminase levels Coding Level of Care Code New Pt Level 3 (50406) Diagnoses Obesity E66.9 Transaminitis R74.01
[2024-03-08 14:04] VITALS: BP 141/90; PULSE 85; BMI 39.0
== END 2024-03-08 15:54 | disposition home or self-care (01) ==
PROVIDERS: PCP Hospitalist; Visit Provider Nurse Practitioner
DX: E66.9 Obesity, unspecified (principal); R74.01 Elevation of levels of liver transaminase levels
CPT/HCPCS: 99203

== ENCOUNTER 2024-03-08 13:23 | Outpatient (REF) | payer MEDICAID, SELFPAY ==
[2024-03-08 16:07] LABS: Ferritin 305 ng/mL (20-250)
[2024-03-09 11:17] LABS: HBS Num1 0.51 mIU/mL (0-7.99); HBc Num1 0.11 S/CO (0.00-0.79); HBsAGNum1 0.33 S/CO (0.00-0.99); Hepatitis A Antibody IgM 0.22 Index (0-0.79); Hepatitis B Core Antibody Nonreactive (Nonreactive); Hepatitis B Surface Antigen Negative (Negative); ~HepC Num1 0.25 S/CO (0.00-0.79); ~Hepatitis A Antibody IgM Nonreactive (Nonreactive); ~Hepatitis B Surface Antibody NONREACTIVE (Nonreactive); ~Hepatitis C Antibody Nonreactive (Nonreactive)
[2024-03-09 13:04] LABS: Alpha Fetoprotein 3.8 ng/mL (<6.1)
[2024-03-12 14:09] LABS: Mitochondrial Antibodies NEGATIVE (NEGATIVE)
[2024-03-14 12:33] LABS: Smooth Muscle Antibody <20 U (<20)
[2024-03-17 02:33] LABS: FIB-ALT 85 U/L (9-46); FIB-Alpha-2-Macroglobulin 151 mg/dL (106-279); FIB-Apolipoprotein A1 135 mg/dL (94-176); FIB-GGT 101 U/L (3-90); FIB-Haptoglobin 107 mg/dL (43-212); FIB-Total Bilirubin 0.4 mg/dL (0.2-1.2); Liver Fibrosis Score 0.17; Liver Fibrosis Stage F0; Nec Inflam Act Grade A1-A2; Nec Inflam Act Score 0.45
== END 2024-03-08 13:24 | disposition home or self-care (01) ==
LOC: HO.LAB 13:23
PROVIDERS: PCP Hospitalist; Visit Provider Nurse Practitioner
DX: R74.01 Elevation of levels of liver transaminase levels (principal); E66.9 Obesity, unspecified
CPT/HCPCS: 36415; 81596; 82105; 82728; 86015; 86381; 86704; 86706; 86709; 86803; 87340; 99202

== ENCOUNTER → 2024-03-16 12:44 | Outpatient (REF) | payer MEDICAID, SELFPAY ==
--- NOTE | 2024-03-16 12:53 | CA_ITS ---
Transthoracic Echocardiogram Patient (Last, First, Middle): Ranjana Soto, Gender: Male Date of : 1985 Age: 38 Procedure Date: 03/16/2024 Procedure Type: Transthoracic Echocardiogram Location: OP Height: 165.1 cm Weight: 79.38 kg BSA: 1.87 m2 Heart Rate: bpm BP: 138 / 68 mmHg Grain Drier: TO Referring MD: Nic Hernandez MD Symptoms: J96.10 - Chronic respiratory failure, unspecified whether with hypoxia o... Study Quality: Fair/Contrast Conclusions: - Normal left ventricular size, thickness, systolic function, and wall motion. The visually estimated ejection fraction is between 60-65%. - There is abnormal septal motion with excessive respiratory change. - E/E prime ratio is between 8 and 15 consistent with indeterminate filling pressures. - Normal right ventricular cavity size and systolic function. Findings Procedure Information Contrast agent, definity, is being given per protocol without apparent complications. Left Ventricle Normal left ventricular size, thickness, systolic function, and wall motion. The visually estimated ejection fraction is between 60-65%. There is abnormal septal motion with excessive respiratory change. Abnormal diastolic function is noted. Spectral Doppler is indicative of an impaired relaxation filling pattern. E/E prime ratio is between 8 and 15 consistent with indeterminate filling pressures. Right Ventricle Normal right ventricular cavity size and systolic function. Atria The left atrium is normal in size. The right atrium is normal in size. Aortic Valve Normal aortic valve structure and function. There is no aortic valve stenosis. There is no aortic valve regurgitation. Mitral Valve The mitral valve appears normal. There is no mitral valve regurgitation. There is no mitral valve stenosis. Pulmonic Valve The pulmonic valve is normal. There is no pulmonic valve regurgitation. Tricuspid Valve Normal tricuspid valve structure. There is no tricuspid valve regurgitation. Tricuspid regurgitation envelope is inadequate for calculation of right ventricular systolic pressure. Normal right atrial pressure. Great Vessels All visible segments of the aorta are normal in size. Venous The inferior vena cava is normal in size and collapses greater than 50% with inspiration. Pericardium/Pleural There is no evidence of pericardial effusion. Prior Study Comparison No prior study available for comparison. Measurements 2D Linear Measurements IVSd: 0.83 0.6-0.9/0.6-1.0 cm LVIDd: 3.99 3.9-5.3/4.2-5.9 cm LVIDd Index: 2.13 2.4-3.2/2.2-3.1 cm/m2 LVIDs: 2.38 2.0-3.6 cm LVPWd: 0.84 0.7-1.1 cm LA Diam: 2.70 2.7-3.8/3.0-4.0 cm LAIDs Index: 1.44 1.5-2.3 cm/m2 LV Mass: 122.61 67-162/88-224 g LV Mass Index: 65.57 43-95/49-115 g/m2 LVOT Diam: 2.10 3.0+(-)1.3 cm 2D Systolic Function EF 4C: 51.70 >55% EF 2C: 57.70 >55% EF BiP: 55.10 >55% Mitral Valve MV Pk E: 0.63 MV PK A: 0.68 MV Decel Time: 189.00 E/A: 0.90 E'Lateral: 8.16 E'Medial: 5.77 E/E' Med: 11.00 E/E' Lat: 7.80 PHT: 55.00 MVA PHT: 4.00 Decel Grayson: 3.36 Aortic Valve AoV Pk Jorje: 1.15 AoV Mn Jorje: 0.77 AoV VTI: 0.19 AoV Pk Grad: 5.00 Aov Mn Grad: 3.00 DEBORAH Cont.VTI: 2.72 LVOT LVOT Pk Jorje: 0.89 LVOT Mn Jorje: 0.52 LVOT VTI: 0.15 LVOT Pk Grad: 3.00 LVOT Mn Grad: 1.00 LVOT Diam: 2.10 LVOT Area: 3.46 Diastolic Function MV Pk E: 0.63 MV Pk A: 0.68 E/A: 0.90 E'Medial: 5.77 E/E' Med: 11.00 E' Laterial: 8.16 E/E' Lat: 7.80 Right Ventricle TAPSE (mm): 16.10 TVS' Jorje: 14.30 Tricuspid Valve RA Press: 8.00 Great Vessels Aorta Sinus of Valsalva: 3.10 2.0-3.5 cm Ao Asc: 2.80 2.1-3.4 cm Updated in Other Vendor System with Status of Final Roberto Avila MD electronically signed on 03/17/2024 11:53:45 PM with status of Final
== END ==
LOC: HO.CARD 12:44
PROVIDERS: PCP Hospitalist; Visit Provider Internal Medicine Cardiovascular Disease
DX: J96.10 Chronic respiratory failure, unspecified whether with hypoxia or hypercapnia (principal)
CPT/HCPCS: 93306; Q9957

== ENCOUNTER → 2024-03-16 12:53 | Outpatient (BNV) | payer MEDICAID, SELFPAY | PROVIDERS: PCP Hospitalist; Visit Provider Internal Medicine Cardiovascular Disease | DX: J96.10 Chronic respiratory failure, unspecified whether with hypoxia or hypercapnia (principal); R93.1 Abnormal findings on diagnostic imaging of heart and coronary circulation | CPT/HCPCS: 93306 ==

== ENCOUNTER 2024-04-02 10:28 | Outpatient (AMB) | payer MEDICAID, SELFPAY ==
[2024-04-02 10:32] VITALS: BP 120/70; PULSE 95; BMI 39.2
--- NOTE | 2024-04-02 10:32 | MHC.OFFVIS ---
Vital Signs 04/02/24 10:32 Height 5 ft 1 in Weight 207 lb 3.752 oz BMI 39.2 BP 120/70 Blood Pressure Location Lt brachial Position Sitting Pulse 95 Pulse Source Pulse Oximeter Intake Visit Reasons: follow up [employer] Required: No Accompanied by: Guardian Allergies amoxicillin Allergy (Verified 01/11/24 15:15) Anaphylaxis sertraline [From Zoloft] Allergy (Verified 01/11/24 15:15) Anaphylaxis Medication List - Last Reconciled 04/02/24 by Nic Hernandez MD acetaminophen 650 mg PO Q6H PRN albuterol sulfate 90 mcg/actuation 2 puffs inhalation Q6H PRN citalopram 10 mg PO DAILY diphenhydramine HCl (Allergy (diphenhydramine)) 25 mg PO BEDTIME PRN divalproex (Depakote) 500 mg PO BID divalproex 250 mg PO BID guaifenesin 300 mg PO Q6H PRN hydroxyzine HCl 50 mg PO QID PRN levetiracetam 1,000 mg PO BID melatonin 5 mg PO BEDTIME mometasone-formoterol 100-5 mcg/actuation (Dulera) 2 puffs inhalation BID multivitamin 1 tab PO DAILY olanzapine 5 mg PO BEDTIME ondansetron HCl 4 mg PO Q8H PRN polyvinyl alcohol 1.4% 1 drp ophthalmic (eye) Q6H PRN sennosides (senna) 8.6 mg PO DAILY PRN HPI Comments Details: Ranjana comes for follow-up for unclear reason. An echocardiogram after my visit which showed essentially normal structure of the heart with no evidence of RV enlargement or pulmonary hypertension. LV systolic function was within normal limits. He has no new cardiac symptoms. Continues to use oxygen. [facility] Medical History Asthma Chronic anticoagulation History of acute respiratory failure Hypoxia Aspiration pneumonia Acute and chronic respiratory failure with hypoxia Rhabdomyolysis Hypernatremia Pneumonia Epileptic seizure Acute hypoxic respiratory failure Pneumonia Psychogenic nonepileptic seizure Seizure disorder TBI (traumatic brain injury) Social History Household Members: Other Housing: [facility] Do you presently have visiting nurse or other home services: No Alcohol intake: never Patient Tobacco Use Status: Never used Tobacco e-Cigarette/Vaping Use: Never Used service: No Review of Systems Const Denies chills, Denies fatigue, Denies fever(s), Denies frequent falls, Denies weakness, Denies weight gain and Denies weight loss ENT Denies dizziness Card Denies chest pain, Denies leg edema, Denies lightheadedness, Denies palpitations, Denies dyspnea and Denies dyspnea on exertion Resp Denies cough, Denies dyspnea and Denies dyspnea on exertion GI Denies hematochezia Musc Denies abnormal gait, Denies muscle weakness, Denies numbness, Denies radiating pain into limb and Denies tingling Neuro Denies Abnormal speech present, Denies abnormal gait, Denies dizziness, Denies frequent falls, Denies numbness, Denies tingling and Denies weakness Endo Denies fatigue and Denies palpitations Physical Exam Vital Signs: Last Vital Signs Pulse 95 04/02/24 10:32 BP 120/70 04/02/24 10:32 BMI result Body Mass Index 39.2 Const General: cooperative, comfortable, no acute distress, alert and awake Nutritional Appearance: obese Orientation/consciousness: patient oriented x3 HEENT Head: Yes normocephalic and Yes atraumatic Neck Neck: Yes trachea midline, Yes supple and Yes no JVD Resp Effort & Inspection: normal respiratory effort Auscultation: breath sounds absent on the right (Posterior half) Cardio Jugular venous distension: no JVD Rate: regular rate Rhythm: regular rhythm Heart sounds: S1 normal heart sound present, S2 normal heart sound present, Clicking heart sound present, no gallops and no murmurs GI Inspection: Yes obesity Auscultation: normal bowel sounds Skin General skin exam: no rashes or lesions noted Neuro General: patient oriented x3 and no focal motor deficits Speech: No Abnormal speech present Extrem General: Yes no clubbing, cyanosis or edema Assessment & Plan Assessment & Plan (1) Chronic respiratory failure: Code(s): J96.10 - Chronic respiratory failure, unspecified whether with hypoxia or hypercapnia Category: Medical Plan: Chronic respiratory failure with no evidence of cor pulmonale on echocardiogram. Patient has compensated sinus tachycardia. No treatment is needed for the same. Continue treat underlying pulmonary issues. Will follow up in the clinic if need be Coding Level of Care Code Est Pt Level 3 (69548) Diagnoses Chronic respiratory failure J96.10
== END 2024-04-02 10:58 | disposition home or self-care (01) ==
PROVIDERS: PCP Hospitalist; Visit Provider Internal Medicine Cardiovascular Disease
DX: J96.10 Chronic respiratory failure, unspecified whether with hypoxia or hypercapnia (principal)
CPT/HCPCS: 99213

== ENCOUNTER → 2024-04-02 10:28 | Outpatient (BNVA) | payer MEDICAID, SELFPAY | PROVIDERS: PCP Hospitalist; Visit Provider Internal Medicine Cardiovascular Disease | DX: J96.10 Chronic respiratory failure, unspecified whether with hypoxia or hypercapnia (principal) | CPT/HCPCS: 99212 ==

== ENCOUNTER 2024-04-12 08:25 | Outpatient (REF) | payer MEDICAID, SELFPAY ==
--- NOTE | ~2024-04-12 | US_ITS ---
EXAMINATION: US ABDOMEN COMPLETE CLINICAL INFORMATION: Elevation of levels of liver transaminase levels. COMPARISON: Limited abdominal ultrasound 11/08/2022. TECHNIQUE: Real-time imaging of the abdominal viscera. Technically difficult study secondary to body habitus with severely limited visualization. FINDINGS: PANCREAS: Poorly visualized ABDOMINAL AORTA: Poorly visualized INFERIOR VENA CAVA: Poorly visualized LIVER: Increased hepatic parenchymal heterogeneity and echogenicity could be associated with hepatocellular disease/hepatic steatosis and substantially limits visualization. Correlation with liver function tests and clinical exam recommended to determine further management. GALLBLADDER: No gallstones. No gallbladder wall thickening. COMMON BILE DUCT: Not visualized. RIGHT KIDNEY: No hydronephrosis. No renal calculi. Limited visualization. The kidney measures 9.9 cm in maximum dimension. LEFT KIDNEY: No hydronephrosis. No renal calculi. Limited visualization. The kidney measures 11.3 cm in maximum dimension. SPLEEN: Normal. The spleen measures 10.3 cm in maximum dimension. FREE FLUID: None. US/US abdomen complete IMPRESSION: 1. Increased hepatic parenchymal heterogeneity and echogenicity could be associated with hepatocellular disease/hepatic steatosis and substantially limits visualization. Correlation with liver function tests and clinical exam recommended to determine further management. 2. Previously identified gallstones are not appreciated, although visualization is limited due to bowel gas and body habitus. Electronically signed by: Nafisa Pleitez MD 05/01/2024 10:27 AM EDT
== END 2024-04-12 08:26 | disposition home or self-care (01) ==
LOC: HO.US 08:25
PROVIDERS: PCP Hospitalist; Visit Provider Nurse Practitioner
DX: R74.01 Elevation of levels of liver transaminase levels (principal)
CPT/HCPCS: 76700

== ENCOUNTER 2024-04-20 10:37 | Outpatient (AMB) | payer MEDICAID, SELFPAY ==
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
[2024-04-20 10:40] VITALS: BP 132/84; PULSE 95; O2SAT 97; BMI 39.3
== END 2024-04-20 11:13 | disposition home or self-care (01) ==
PROVIDERS: PCP Hospitalist; Visit Provider Nurse Practitioner Family
DX: J96.10 Chronic respiratory failure, unspecified whether with hypoxia or hypercapnia (principal); J45.40 Moderate persistent asthma, uncomplicated; J98.6 Disorders of diaphragm
CPT/HCPCS: 99214

== ENCOUNTER → 2024-04-20 10:37 | Outpatient (BNVA) | payer MEDICAID, SELFPAY | PROVIDERS: PCP Hospitalist; Visit Provider Nurse Practitioner Family | DX: J96.10 Chronic respiratory failure, unspecified whether with hypoxia or hypercapnia (principal); J45.40 Moderate persistent asthma, uncomplicated; J98.6 Disorders of diaphragm; R06.00 Dyspnea, unspecified | CPT/HCPCS: 99212 ==

== ENCOUNTER 2024-05-07 12:54 | Outpatient (REF) | payer MEDICAID, SELFPAY ==
--- NOTE | ~2024-05-07 | FL_ITS ---
EXAMINATION: FL SNIFF TEST CLINICAL INFORMATION: Elevated right hemidiaphragm. COMPARISON: Chest x-ray December 2023 TECHNIQUE: Fluoroscopic cine loops were recorded with during normal respiration. Fluoroscopic cine loops were then recorded during immediate inspiration. FINDINGS: There is elevation of the right hemidiaphragm. There is paradoxical motion of the diaphragm during inspiration, with the right hemidiaphragm fails to move downward during inspiration. FLUOROSCOPY TIME: 28 seconds Number of Spot Images: 1 Number of Cine: 2 DOSE AREA PRODUCT: 840.2 uGy-m2 (microgray-meter squared) FL/FL fluoroscopy <1hr IMPRESSION: 1. Elevated right hemidiaphragm and paradoxical motion of the diaphragm during inspiration consistent with right phrenic nerve paresis or paralysis. This procedure was performed by Parth Saucedo PA-C, and supervised by Dr. Morfin Electronically signed by: Garett Morfin MD 05/08/2024 12:39 PM [facility]
== END 2024-05-07 12:55 | disposition home or self-care (01) ==
LOC: HO.XRAY 12:54
PROVIDERS: PCP Hospitalist; Visit Provider Nurse Practitioner Family
DX: J98.6 Disorders of diaphragm (principal)
CPT/HCPCS: 76000

== ENCOUNTER → 2024-05-07 12:56 | Outpatient (BNV) | payer MEDICAID, SELFPAY | PROVIDERS: PCP Hospitalist; Visit Provider Physician Assistant Surgical | DX: J98.6 Disorders of diaphragm (principal) | CPT/HCPCS: 76000 ==

== ENCOUNTER → 2024-05-23 13:45 | Outpatient (BNVA) | payer MEDICAID, SELFPAY | PROVIDERS: PCP Hospitalist; Visit Provider Nurse Practitioner Family | DX: J96.10 Chronic respiratory failure, unspecified whether with hypoxia or hypercapnia (principal); J45.40 Moderate persistent asthma, uncomplicated; J98.6 Disorders of diaphragm; G56.80 Other specified mononeuropathies of unspecified upper limb; Z99.81 Dependence on supplemental oxygen | CPT/HCPCS: 99212 ==

== ENCOUNTER 2024-05-23 13:47 | Outpatient (AMB) | payer MEDICAID, SELFPAY ==
[2024-05-23 13:50] VITALS: BP 138/80; PULSE 114; O2SAT 82; BMI 39.3
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
== END 2024-05-23 14:07 | disposition home or self-care (01) ==
PROVIDERS: PCP Hospitalist; Visit Provider Nurse Practitioner Family
DX: J96.10 Chronic respiratory failure, unspecified whether with hypoxia or hypercapnia (principal); J45.40 Moderate persistent asthma, uncomplicated; J98.6 Disorders of diaphragm; G56.80 Other specified mononeuropathies of unspecified upper limb
CPT/HCPCS: 99214

== ENCOUNTER 2024-07-21 09:04 | Emergency (ER) | payer MEDICAID, SELFPAY ==
--- NOTE | 2024-07-21 09:15 | ED.GENADULT ---
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 According to EMS, [facility] facility had reported 2-3 seizures this am. Pt states that this morning after breakfast he felt an aura like sensation and staff was present who ultimately lowered patient down to the ground. patient reports that he is feeling well and has no current complaints. He has been taking his medications, no missed dosages. He does reports some left lower dental pain, the last 2 weeks, [facility] is aware, and is attempting to follow-up with a dentist. He denies any fevers, chills, headache, chest pain, shortness of breath, abdominal pain, nausea, vomiting or diarrhea. No other complaints or concerns at this time MD complaint: ? seizure Onset (ago): hour(s) Relieving factors: none Exacerbating factors: none Associated symptoms: denies other symptoms Treatments prior to arrival: none Related Data Home Medications ?Medication ?Instructions ?Recorded ?Confirmed acetaminophen 325 mg tablet 650 mg PO Q6H PRN Fever Or Pain 04/15/23 04/02/24 albuterol sulfate 90 mcg/actuation 2 puff inhalation Q6H PRN Wheezing 04/15/23 04/02/24 aerosol inhaler citalopram 10 mg tablet 10 mg PO DAILY 04/15/23 04/02/24 divalproex 500 mg tablet,delayed 500 mg PO BID 04/15/23 04/02/24 release (Depakote) multivitamin 1 tab PO DAILY 04/15/23 04/02/24 ondansetron HCl 4 mg tablet 4 mg PO Q8H PRN Nausea And Vomiting 04/15/23 04/02/24 sennosides 8.6 mg tablet (senna) 8.6 mg PO DAILY PRN Constipation 04/15/23 04/02/24 guaifenesin 100 mg/5 mL oral liquid 300 mg PO Q6H PRN Cough 05/03/23 04/02/24 melatonin 5 mg tablet 5 mg PO BEDTIME 05/03/23 04/02/24 polyvinyl alcohol 1.4 % eye drops 1 drp ophthalmic (eye) Q6H PRN Dry 05/03/23 04/02/24 Eye(S) diphenhydramine HCl 25 mg capsule 25 mg PO BEDTIME PRN 02/14/24 04/02/24 (Allergy (diphenhydramine)) divalproex 250 mg tablet,delayed 250 mg PO BID 02/14/24 04/02/24 release hydroxyzine HCl 50 mg tablet 50 mg PO QID PRN 02/14/24 04/02/24 olanzapine 10 mg tablet 5 mg PO BEDTIME 04/02/24 04/02/24 Previous Rx's ?Medication ?Instructions ?Recorded levetiracetam 1,000 mg tablet 1,000 mg PO BID #60 tabs 04/20/23 mometasone-formoterol HFA 100 2 puff inhalation BID #1 ea 08/02/23 mcg-5 mcg/actuation aerosol inhaler (Dulera) Allergies Allergy/AdvReac Type Severity Reaction Status Date / Time amoxicillin Allergy Anaphylaxis Verified 07/21/24 09:21 sertraline [From Zoloft] Allergy Anaphylaxis Verified 07/21/24 09:21 Review of Systems Review of Systems: Yes all other systems are reviewed and are negative Constitutional: Constitutional: Reports as per [facility] Past Medical History Medical History Asthma Chronic anticoagulation History of acute respiratory failure Hypoxia Aspiration pneumonia Acute and chronic respiratory failure with hypoxia Rhabdomyolysis Hypernatremia Pneumonia Epileptic seizure Acute hypoxic respiratory failure Pneumonia Psychogenic nonepileptic seizure Seizure disorder TBI (traumatic brain injury) Social History Social History Household Members: Other Housing: Shelter Do you presently have visiting nurse or other home services: No Alcohol intake: never Patient Tobacco Use Status: Never used Tobacco Smoked in Last 30 Days: No e-Cigarette/Vaping Use: Never Used Use of substances other than those prescribed or required for medical reasons: No Advance Directives: No Advance Directives Information Provided: No Do you have a plan to hurt others: No Plan service: No Physical Exam ED Vital Signs: Vital Signs - 24 hr 07/21/24 09:19 Temperature 99.4 F Pulse Rate 108 H Respiratory Rate 16 Blood Pressure 142/84 H Pulse Oximetry 95 Oxygen Delivery Method Nasal Cannula BMI result Body Mass Index 33.1 Const General: cooperative, comfortable and no acute distress Orientation/consciousness: patient oriented x3 Limitations: no limitations HENMT Other: left lower dentition, with no evidence of edema, nontender, no dental decay noted. Head: Yes normal to inspection, Yes normocephalic and Yes atraumatic Ears: hearing grossly normal bilaterally General nose exam: Normal external nose present Face and sinus: Yes normal facial exam Mouth: Normal oral and palatal mucosa present, oropharynx normal and moist mucous membranes Throat: Yes posterior oropharynx normal Eyes General: appearance normal, both eyes and all related structures Eyelids: Yes eyelids normal Conjunctivae: conjunctivae normal Sclerae: sclerae normal Pupils: Equal, round and reactive pupils present EOM: EOMs intact bilaterally Neck Neck: Yes normal visual inspection, Yes full ROM and Yes no lymphadenopathy Lymphatic: no lymphadenopathy noted Chest Chest palpation & inspection: normal inspection of the chest Resp Effort & Inspection: normal respiratory effort and able to speak in complete sentences Auscultation: clear to auscultation bilaterally, no crackles, no rales, no rhonchi and no wheezes Cardio Rate: regular rate Rhythm: regular rhythm Heart sounds: S1 normal heart sound present and S2 normal heart sound present GI Other: Abdomen is soft and nontender Inspection: Yes normal to inspection Skin General skin exam: no rashes or lesions noted Trauma: no lacerations or abrasions Wounds: no wounds Neuro General: patient oriented x3 and moves all extremities Cranial nerves: Yes Equal, round and reactive pupils present Extrem General: Yes normal to inspection Right upper extremity: normal to inspection Left upper extremity: normal to inspection Right lower extremity: normal to inspection Left lower extremity: normal to inspection Course Reevaluation(s) Reevaluation #1: Labs returned, no leukocytosis, stable H&H, chemistry without any significant electrolyte derangement. Liver transaminases slightly elevated, improved from previous. Urine unremarkable. Depakote level within normal limits, Keppra pending, this can be followed up outpatient. Patient has had no seizure-like activity throughout the duration of his emergency room stay. He is feeling well, no current complaints. Patient can be safely discharged home back to [facility]. Patient understands and agrees with plan. Patient stable for discharge. Medical Decision Making Medical Decision Making [facility] Narrative: this is a 38-year-old male who presents emergency department via EMS with concerns for 2-3 seizures this morning. On arrival, patient is slightly tachycardic at 1 week, all other vital signs within normal limits. He is speaking in full sentences under no acute distress. He has no medical complaints at this time. He has been taking his medications as directed, no missed dosages. Differential diagnoses include electrolyte derangement, seizure, subtherapeutic depakote/keppra levels. patient does not appear to be postictal, he is alert oriented x4, no current complaints. Will continue to monitor. Differential Diagnosis Differential Diagnoses: The differential diagnosis associated with the presentation includes see above Lab Data [facility] Lab Attestation statement: I reviewed the patient's lab results. 07/21/24 11:07 07/21/24 11:07 Labs: Lab Results 07/21/24 07/21/24 Range/Units 09:55 11:07 WBC 5.6 (4.8-10.8) X10*3/uL RBC 5.49 (4.60-5.80) X10*6/uL Hgb 15.9 (14.0-18.0) g/dl Hct 49.5 (42.0-52.0) % MCV 90.2 (80.0-98.0) fL MCH 29.0 (27.0-33.0) pg MCHC 32.1 (31.0-36.0) g/dl RDW 14.0 (11.0-16.0) % Plt Count 182 (160-400) X10*3/uL MPV 9.1 L (9.4-12.4) fL Immature Gran % (Auto) 0.4 (0.0-0.4) % Neut % (Auto) 59.0 (45-73) % Lymph % (Auto) 33.0 (20-40) % [place] % (Auto) 7.0 (2-11) % Eos % (Auto) 0.4 (0-4) % Baso % (Auto) 0.2 (0-2) % Lymph # (Auto) 1.8 (1.2-4.9) X10*3/uL [place] # (Auto) 0.4 (0.1-1.2) X10*3/uL Eos # (Auto) 0.0 (0.0-0.4) X10*3/uL Baso # (Auto) 0.0 (0.0-0.2) X10*3/uL Abs Immat Gran (auto) 0.02 (0.00-0.03) X10*3/uL Absolute Neuts (auto) 3.3 (2.0-8.3) x10*3/uL Absolute Nucleated RBC 0.000 (0.0-0.012) X10*3/uL Nucleated RBC % (auto) 0.0 (0.0-0.2) /100WBC Sodium 144 (135-145) mmol/L Potassium 4.0 (3.3-5.1) mmol/L Chloride 102 (96-108) mmol/L Carbon Dioxide 35 H (22-29) mmol/L Anion Gap 11 L (12-20) BUN 9 (9-16) mg/dL Creatinine 0.81 (0.5-1.4) mg/dL Estim Creat Clear Calc 134.5 Estimated GFR > 60 Random Glucose 133 H (60-115) mg/dL Calcium 9.3 (8.4-10.2) mg/dL Magnesium 2.0 (1.6-2.6) mg/dL Total Bilirubin 0.4 (0.0-1.0) mg/dL Direct Bilirubin 0.2 (0.0-0.5) mg/dL AST 71 H (5-37) U/L ALT 89 H (0-40) U/L Alkaline Phosphatase 70 (39-117) U/L Total Protein 8.1 H (6.5-8.0) g/dL Albumin 4.4 (3.5-5.0) g/dL Urine Color Yellow Urine Appearance Clear Urine pH 6.5 (5.0-9.0) Ur Specific [place] 1.015 (1.005-1.025) Urine Protein 100 (2+) H (Neg-Trace) mg/dL Urine Glucose (UA) Negative (Negative) mg/dL Urine Ketones Negative (Negative) mg/dL Urine Blood Negative (Negative) Urine Nitrite Negative (Negative) Ur Leukocyte Esterase Negative (Negative) Urine RBC 0-2 (0-2) /HPF Urine WBC 0-5 (0-5) /HPF Ur Squamous Epith Cells 0-2 (0-2) /HPF Urine Bacteria None Seen (None Seen) Hyaline Casts 0-2 (0-2) /LPF Valproic Acid 96.9 (50.0-100.0) mcg/mL Ethyl Alcohol 10 mg/dL Radiology Impression Discussion of test interpretation with radiology: I have reviewed the radiologist's reading. External Record Review External record reviewed: Inpatient record, Office record, Outpatient record, Prior outpatient labs, Prior outpatient radiology, Primary care record and Outside ED record Discharge Plan Discharge Clinical Impression: Seizure disorder Patient Disposition: Xfer [facility] Transfer Details: [facility] Instructions: Epilepsy (ED), Recurrent Seizures in Adults (ED) Additional Instructions: You were seen in the emergency department due to question of the seizure this morning. Your labs were performed, which were reassuring. Your Valproic acid level was 96.9 which is within the normal range. You had no seizure-like activity during your emergency room visit today. Your Keppra level is still pending and takes several days to return, your PCP can follow up with this. If any new or worsening symptoms occur including but not limited to severe headache, dizziness, chest pain, shortness of breath, please seek emergent care. Prescriptions: No Action polyvinyl alcohol 1.4 % Drops 1 drp OPHTHALMIC (EYE) Q6H PRN (Reason: Dry Eye(S)) guaifenesin 100 mg/5 mL Liquid 300 mg PO Q6H PRN (Reason: Cough) melatonin 5 mg Tablet 5 mg PO BEDTIME multivitamin Tablet 1 tab PO DAILY sennosides [senna] 8.6 mg Tablet 8.6 mg PO DAILY PRN (Reason: Constipation) acetaminophen 325 mg Tablet 650 mg PO Q6H PRN (Reason: Fever Or Pain) citalopram 10 mg Tablet 10 mg PO DAILY ondansetron HCl 4 mg Tablet 4 mg PO Q8H PRN (Reason: Nausea And Vomiting) divalproex [Depakote] 500 mg Tablet,Delayed Release (Dr/Ec) 500 mg PO BID albuterol sulfate 90 mcg/actuation Hfa Aerosol Inhaler 2 puff INHALATION Q6H PRN (Reason: Wheezing) levetiracetam 1,000 mg Tablet 1,000 mg PO BID Qty: 60 0RF olanzapine 10 mg tablet 5 mg PO BEDTIME Dulera 100-5 mcg/actuation HFA aerosol inhaler 2 puff inhalation BID Qty: 1 3RF diphenhydramine HCl [Allergy (diphenhydramine)] 25 mg capsule 25 mg PO BEDTIME PRN divalproex 250 mg tablet,delayed release (DR/EC) 250 mg PO BID hydroxyzine HCl 50 mg tablet 50 mg PO QID PRN Print Language: Ghanaian
[2024-07-21 09:19] VITALS: BP 141/92; BP 142/84; PULSE 108; PULSE 109; RESP 16; TEMP 37.4; O2SAT 95; O2SAT 98; BMI 33.1
[2024-07-21 10:04] LABS: Appearance Urine Clear; Color Urine Yellow; Glucose Urine UA Negative (Negative); Leukocyte Esterase Urine Negative (Negative); Nitrite Urine Negative (Negative); PH 6.5 (5.0-9.0); Specific Gravity - Urine 1.015 (1.005-1.025); UMIC TRIGGER UACC YES; Urine Blood Negative (Negative); Urine Ketones Negative (Negative); Urine Protein 100 (2+) mg/dL (Neg-Trace)
[2024-07-21 10:09] LABS: Bacteria Urine None Seen (None Seen); Hyaline Casts Urine 0-2 /LPF (0-2); RBC Urine 0-2 /HPF (0-2); Squamous Epithelial Cell Urine 0-2 /HPF (0-2); WBC Urine 0-5 /HPF (0-5)
--- OUTSIDE RECORDS SUMMARY | 2024-07-21 10:16 | XMS_ITS | Continuity of Care Document ---
Author Organization [facility] Care Team Address [address] [place] [address] Phone Care Team Providers Care Shingler Name Role Phone Provider1, First Unavailable Unavailable Advance Directives Directive Yes / No Effective Date File Name No Information Encounters Encounter Description Practice Location Reason(s) For Visit Diagnoses Date Provider Providers Copied on Encounter [facility] Team, [address] [place] [address], [facility], [place] tel:[phone] [facility] No Information Provider1 First. . Family History Family Member Type Diagnosis [...]
--- OUTSIDE RECORDS SUMMARY | 2024-07-21 10:16 | XMS_ITS ---
Author Name [facility] Organization Unknown Results Test Name/Text Value Interpretation Date Range Source BUN SerPl-mCnc 9mg/dL Normal 7 - 18 [facility] Creat SerPl-mCnc 0.85mg/dL Normal [id number] 0.7 - 1.3 [facility] Anion Gap3 SerPl-sCnc 6mmol/L Normal 5 - 15 [facility] GFR/BSA.pred SerPlBld REX-EOV-RhKKik 60mL/min/1.73m 2 Normal [id number] - [facility] Glucose SerPl-mCnc 81mg/dL Normal 65 - 110 [facility] HCO3 SerPl-sCnc 30mmol/L Normal [id number] 21 - 32 [facility] Chloride SerPl-sCnc 106mmol/L Normal 98 - 10 7 [facility] Calcium SerPl-mCnc 9.8mg/dL Normal 8.5 - 10 .1 [facility] Sodium SerPl-sCnc 142mmol/L Normal 136 - 145 [facility] Potassium SerPl-sCnc 4.1mmol/L Normal [id number] 3.5 - 5.1 [facility] CK SerPl-cCnc 312U/L Above high normal [id number] 39 - 308 [facility] MCV RBC Auto 93.3fL Normal 80 - 100 [facility] Lymphocytes # Bld Auto 2.36i9740/uL Normal 0.6 - 3.7 [facility] WBC # Bld Auto 1u6937/uL Normal 4 - 11 [facility] Monocytes/leuk NFr Bld Auto 7.5% Normal 4 - 12 [facility] Imm Granulocytes/leuk NFr Bld Auto 0.4% Normal 0 - 1 [facility] nRBC # Bld Auto 6l9879/uL Normal 0 - 1 [facility] Platelet # Bld Auto 159w3895/uL Normal 150 - 420 [facility] PMV Bld Auto 9.3fL Normal 8 - 12 [facility] MCH RBC Qn Auto 29.4pg Normal 27 - 33 [facility] Eosinophil # Bld Auto 0.18i0968/uL Normal 0 - 1 [facility] Neutrophils/leuk NFr Bld Auto 43.8% Normal 39 - 72 [facility] Imm Granulocytes # Bld Auto 0.50t4102/uL Normal 0 - 0.3 [facility] RBC # Bld Auto 4.9M/uL Normal 4 - 6 [facility] Monocytes # Bld Auto 0.97k2187/uL Normal 0 - 1 [facility] RDW RBC Auto-Rto 12.6% Normal 11 - 15 [facility] Lymphocytes/leuk NFr Bld Auto 46.7% Normal 17 - 50 [facility] Eosinophil/leuk NFr Bld Auto 1.2% Normal 0 - 5 [facility] Basophils # Bld Auto 0.82s6484/uL Normal 0 - 1 [facility] nRBC/100 WBC Bld Auto-Rto 0% Normal 0 - 1 [facility] Neutrophils # Bld Auto 2.74u3643/uL Normal 2 - 7.6 [facility] Hct VFr Bld Auto 45.7% Normal 38.5 - 50 [facility] Hgb Bld-mCnc 14.4g/dL Normal 13.2 - 17.1 [facility] MCHC RBC Auto-mCnc 31.5g/dL Normal 31 - 36 [facility] Basophils/leuk NFr Bld Auto 0.4% Normal 0 - 1.4 [facility] CK SerPl-cCnc 440U/L Above high normal [id number] 39 - 308 [facility] CK SerPl-cCnc 835U/L Above high normal [id number] 39 - 308 [facility] TSH SerPl DL<=0.005 mIU/L-aCnc 2.19uIU/mL Normal [id number] 0.36 - 3.74 [facility] Prealb SerPl Neph-mCnc 34.1mg/dL Normal [id number] 20 - 40 [facility] Phosphate SerPl-mCnc 2.8mg/dL Normal [id number] 2.5 - 4.9 [facility] CK SerPl-cCnc 1070U/L Above high normal [id number] 39 - 308 [facility] Magnesium SerPl-mCnc 1.9mg/dL Normal [id number] 1.6 - 2.6 [facility] Bilirub Direct SerPl-mCnc 0.16mg/dL Normal [id number] 0 - 0.2 [facility] HDLc SerPl-mCnc 38mg/dL Below low normal [id number] - [facility] Trigl SerPl-mCnc 235mg/dL Above high normal [id number] - [facility] Cholest SerPl-mCnc 243mg/dL Above high normal [id number] - [facility] LDLc SerPl Calc-mCnc 161mg/dL Above high normal [id number] 7 - [facility] Glucose SerPl-mCnc 135mg/dL Above high normal [id number] 65 - 110 [facility] AST SerPl w P-5'-P-cCnc 129U/L Above high normal [id number] 15 - 37 [facility] Calcium SerPl-mCnc 9.1mg/dL Normal [id number] 8.5 - 10 .1 [facility] ALT SerPl w/o P-5'-P-cCnc 163U/L Above high normal [id number] 16 - 61 [facility] Sodium SerPl-sCnc 143mmol/L Normal [id number] 136 - 145 [facility] BUN SerPl-mCnc 10mg/dL Normal [id number] 7 - 18 [facility] ALP SerPl-cCnc 62U/L Normal [id number] 45 - 117 [facility] Globulin Plas-mCnc 3.8g/dL Normal [id number] 2.5 - 5 [facility] HCO3 SerPl-sCnc 30mmol/L Normal [id number] 21 - 32 [facility] Creat SerPl-mCnc 0.99mg/dL Normal [id number] 0.7 - 1.3 [facility] Anion Gap3 SerPl-sCnc 5mmol/L Normal [id number] 5 - 15 [facility] Albumin SerPl BCG-mCnc 3.5g/dL Normal [id number] 3.4 - 5 [facility] Bilirub SerPl-mCnc 0.7mg/dL Normal [id number] - 1 [facility] Chloride SerPl-sCnc 108mmol/L Above high normal [id number] 98 - 107 [facility] Potassium SerPl-sCnc 3.9mmol/L Normal [id number] 3.5 - 5.1 [facility] GFR/BSA.pred SerPlBld CLR-IZR-MjOIsq 60mL/min/1.73m 2 Normal [id number] - [facility] Prot SerPl-mCnc 7.3g/dL Normal [id number] 6.4 - 8.2 [facility] MCV RBC Auto 93.5fL Normal [id number] 80 - 100 [facility] Lymphocytes # Bld Auto 1.05j5234/uL Normal [id number] 0.6 - 3.7 [facility] WBC # Bld Auto 6.1k4118/uL Normal [id number] 4 - 11 [facility] Monocytes/leuk NFr Bld Auto 6.6% Normal [id number] 4 - 12 [facility] Imm Granulocytes/leuk NFr Bld Auto 0.5% Normal [id number] 0 - 1 [facility] nRBC # Bld Auto 0c8989/uL Normal [id number] 0 - 1 [facility] Platelet # Bld Auto 462i9725/uL Normal [id number] 150 - 420 [facility] PMV Bld Auto 9.2fL Normal [id number] 8 - 12 [facility] MCH RBC Qn Auto 29.5pg Normal [id number] 27 - 33 [facility] Eosinophil # Bld Auto 0.95x9855/uL Normal [id number] 0 - 1 [facility] Neutrophils/leuk NFr Bld Auto 62% Normal [id number] 39 - 72 [facility] Imm Granulocytes # Bld Auto 0.72h6400/uL Normal [id number] 0 - 0.3 [facility] RBC # Bld Auto 4.61M/uL Normal [id number] 4 - 6 [facility] Monocytes # Bld Auto 0.63v4273/uL Normal [id number] 0 - 1 [facility] RDW RBC Auto-Rto 13.1% Normal [id number] 11 - 15 [facility] Lymphocytes/leuk NFr Bld Auto 30.2% Normal [id number] 17 - 50 [facility] Eosinophil/leuk NFr Bld Auto 0.5% Normal [id number] 0 - 5 [facility] Basophils # Bld Auto 0.41i7589/uL Normal [id number] 0 - 1 [facility] nRBC/100 WBC Bld Auto-Rto 0% Normal [id number] 0 - 1 [facility] Neutrophils # Bld Auto 3.90t1831/uL Normal [id number] 2 - 7.6 [facility] Hct VFr Bld Auto 43.1% Normal [id number] 38.5 - 50 [facility] Hgb Bld-mCnc 13.6g/dL Normal [id number] 13.2 - 17.1 [facility] MCHC RBC Auto-mCnc 31.6g/dL Normal [id number] 31 - 36 [facility] Basophils/leuk NFr Bld Auto 0.2% Normal [id number] 0 - 1.4 [facility] BKR REFLEX URINE CULTURE See Comment Normal [id number] [facility] WBC #/area UrnS Auto 1/HPF Normal [id number] 0 - 5 [facility] RBC #/area UrnS Auto 1/HPF Normal [id number] 0 - 2 [facility] Hyaline Casts #/area UrnS 1/LPF Normal [id number] 0 - 3 [facility] Glucose Ur Strip.auto-mCnc Negative Normal [id number] - [facility] Hgb Ur Ql Strip.auto Negative Normal [id number] - [facility] Color Ur Auto Yellow Normal [id number] - [facility] Bilirub Ur Ql Strip.auto Negative Normal [id number] - [facility] Clarity Ur Refract.auto Clear Normal [id number] - [facility] Prot Ur Strip.auto-mCnc 1+ Abnormal [id number] - [facility] Nitrite Ur Ql Strip.auto Negative Normal [id number] - [facility] Ketones Ur Strip.auto-mCnc Negative Normal [id number] - [facility] WBC # Ur Strip Negative Normal [id number] - [facility] Sp Gr Ur Refract.auto 1.022 Normal [id number] 1.005 - 1.03 [facility] Urobilinogen Ur Strip-mCnc 2mg/dL Normal [id number] - [facility] pH Ur Strip.auto 6.5 Normal [id number] 5.5 - 7.5 [facility] levETIRAcetam SerPl-mCnc 24.3ug/mL Normal [id number] 12 - 46 [facility] Lactate SerPl-sCnc 2mmol/L Normal [id number] 0.4 - 2 [facility] Prolactin SerPl 3rd IS-aCnc 8ng/mL Normal [id number] 2.1 - 17.7 [facility] Glucose SerPl-mCnc 137mg/dL Above high normal [id number] 65 - 110 [facility] AST SerPl w P-5'-P-cCnc 154U/L Above high normal [id number] 15 - 37 [facility] Calcium SerPl-mCnc 9.8mg/dL Normal [id number] 8.5 - 10 .1 [facility] ALT SerPl w/o P-5'-P-cCnc 192U/L Above high normal [id number] 16 - 61 [facility] Sodium SerPl-sCnc 138mmol/L Normal [id number] 136 - 145 [facility] BUN SerPl-mCnc 12mg/dL Normal [id number] 7 - 18 [facility] ALP SerPl-cCnc 85U/L Normal [id number] 45 - 117 [facility] Globulin Plas-mCnc 4.3g/dL Normal [id number] 2.5 - 5 [facility] HCO3 SerPl-sCnc 26mmol/L Normal [id number] 21 - 32 [facility] Creat SerPl-mCnc 0.99mg/dL Normal [id number] 0.7 - 1.3 [facility] Anion Gap3 SerPl-sCnc 9mmol/L Normal [id number] 5 - 15 [facility] Albumin SerPl BCG-mCnc 3.9g/dL Normal [id number] 3.4 - 5 [facility] Bilirub SerPl-mCnc 0.6mg/dL Normal [id number] - 1 [facility] Chloride SerPl-sCnc 103mmol/L Normal [id number] 98 - 10 7 [facility] Potassium SerPl-sCnc 3.7mmol/L Normal [id number] 3.5 - 5.1 [facility] GFR/BSA.pred SerPlBld TWA-ZWO-ZuDAuc 60mL/min/1.73m 2 Normal [id number] - [facility] Prot SerPl-mCnc 8.2g/dL Normal [id number] 6.4 - 8.2 [facility] Valproate SerPl-mCnc 96ug/mL Normal [id number] 50 - 1 00 [facility] MCV RBC Auto 90.7fL Normal [id number] 80 - 100 [facility] Lymphocytes # Bld Auto 2.86c0075/uL Normal [id number] 0.6 - 3.7 [facility] WBC # Bld Auto 6.2p3942/uL Normal [id number] 4 - 11 [facility] Monocytes/leuk NFr Bld Auto 6.8% Normal [id number] 4 - 12 [facility] Imm Granulocytes/leuk NFr Bld Auto 0.3% Normal [id number] 0 - 1 [facility] nRBC # Bld Auto 6e3712/uL Normal [id number] 0 - 1 [facility] Platelet # Bld Auto 207h9197/uL Normal [id number] 150 - 420 [facility] PMV Bld Auto 9.7fL Normal [id number] 8 - 12 [facility] MCH RBC Qn Auto 30.4pg Normal [id number] 27 - 33 [facility] Eosinophil # Bld Auto 0.17w0076/uL Normal [id number] 0 - 1 [facility] Neutrophils/leuk NFr Bld Auto 59.6% Normal [id number] 39 - 72 [facility] Imm Granulocytes # Bld Auto 0.44w4193/uL Normal [id number] 0 - 0.3 [facility] RBC # Bld Auto 5.04M/uL Normal [id number] 4 - 6 [facility] Monocytes # Bld Auto 0.52z5931/uL Normal [id number] 0 - 1 [facility] RDW RBC Auto-Rto 12.7% Normal [id number] 11 - 15 [facility] Lymphocytes/leuk NFr Bld Auto 32.9% Normal [id number] 17 - 50 [facility] Eosinophil/leuk NFr Bld Auto 0.3% Normal [id number] 0 - 5 [facility] Basophils # Bld Auto 0.00l3595/uL Normal [id number] 0 - 1 [facility] nRBC/100 WBC Bld Auto-Rto 0% Normal [id number] 0 - 1 [facility] Neutrophils # Bld Auto 4.89j2069/uL Normal [id number] 2 - 7.6 [facility] Hct VFr Bld Auto 45.7% Normal [id number] 38.5 - 50 [facility] Hgb Bld-mCnc 15.3g/dL Normal [id number] 13.2 - 17.1 [facility] MCHC RBC Auto-mCnc 33.5g/dL Normal [id number] 31 - 36 [facility] Basophils/leuk NFr Bld Auto 0.1% Normal [id number] 0 - 1.4 [facility] History of Medication Use Medication Directions Dispensed Refills Start Date End Date Stat us citalopram (CELEXA) 10 mg tablet Take 1 tablet (10 mg total) by mouth daily. 02/27/2024 active levETIRAcetam (KEPPRA) 1000 mg immediate release tablet Take 1 tablet (1,000 mg total) by mouth 2 (two) times daily. 02/27/2024 active guaiFENesin (ROBITUSSIN) 100 mg/5 mL Liqd Take 15 mLs by mouth every 6 (six) hours as needed for cough. 02/27/2024 active levETIRAcetam (KEPPRA) injection (ADULTS) 500 mg 500 mg, IV Push, Every 12 Hours Scheduled, First dose on Tue02/17/24 at 1945Maximum dose of 4,500 mg. Administer undiluted at a maximum rate of 500 mg/minute. If necessary, use multiple syringes to draw up the total dose. Do not draw up more than 3 vials per single syringe.Pharmacist will imple 02/27/2024 aborted polyethylene glycol (MIRALAX) packet 17 g 17 g, Oral, Nightly PRN, constipation, Constipation, Starting on Tue02/17/24 at 1723Dissolve in 4 - 8 oz of water, juice, soda, coffee, or tea.??First line therapy??Common Side Effects: Diarrhea, discomfort, cramps. 02/27/2024 aborted escitalopram oxalate (LEXAPRO) tablet 5 mg 5 mg, Oral, Daily, First dose on Tue02/19/24 at 0900 02/27/2024 aborted divalproex (DEPAKOTE DR) tablet 750 mg 750 mg, Oral, 2 Times Daily Scheduled, First dose on Tue02/17/24 at 2230Swallow whole; do not crush or chew. Oral valproate products may cause GI upset; administer with food.OP SIG:Take 1 tablet (250 mg total) by mouth 2 (two) times daily. 02/25/2024 aborted sodium chloride 0.9% infusion 100 mL/hr, Intravenous, CONTINUOUS, Starting on Tue02/17/24 at 1730, For 24 hours 02/25/2024 completed cyclobenzaprine (FLEXERIL) 10 mg tablet Take 1 tablet (10 mg total) by mouth 3 (three) times daily as needed (pain). 02/25/2024 active mometasone-formotero l (DULERA) 100-5 mcg/actuation HFA aerosol inhaler Inhale 2 puffs into the lungs daily. 02/25/2024 active levETIRAcetam (KEPPRA) Immediate Release tablet 1,000 mg 1,000 mg, Oral, 2 Times Daily Scheduled, First dose on Tue02/19/24 at 2100May be crushed and mixed with applesauce or administered via enteral feeding tube. If administered via enteral feeding tube, disperse crushed tablet(s) in 10 mL of water, shake for 5 minutes to dissolve, and administer immedi 02/25/2024 aborted ondansetron (ZOFRAN-ODT) disintegrating tablet 4 mg [Order 1 Start] Name: ondansetron (ZOFRAN-ODT) disintegrating tablet 4 mg Signed Summary: 4 mg, Oral, EVERY 6 HOURS PRN, nausea or vomiting, Starting on Tue02/17/24 at 1723First line therapy.?Common Side Effects: Lightheaded, stomach upset, headache. [Order 1 End] [Order 2 Start] Name: ondansetro 02/25/2024 aborted hydrOXYzine (VISTARIL) 50 mg/mL injection Inject 1 mL (50 mg total) into the vein every 4 (four) hours as needed (seizures). 02/25/2024 active hydrALAZINE (APRESOLINE) tablet 10 mg 10 mg, Oral, ONCE, On Tue02/17/24 at 1815, For 1 doseHold for SBP < 90 mm Hg 02/25/2024 completed levETIRAcetam (KEPPRA) Immediate Release tablet 500 mg 500 mg, Oral, 2 Times Daily Scheduled, First dose on Tue02/17/24 at 2000May be crushed and mixed with applesauce or administered via enteral feeding tube. If administered via enteral feeding tube, disperse crushed tablet(s) in 10 mL of water, shake for 5 minutes to dissolve, and administer immediat 02/25/2024 aborted rosuvastatin (CRESTOR) tablet 10 mg 10 mg, Oral, Daily, First dose on Tue02/21/24 at 0900Common side effects are nausea, headache, muscle pain or weakness. 02/25/2024 aborted acetaminophen (TYLENOL) tablet 650 mg 650 mg, Oral, EVERY 6 HOURS PRN, temperature > 100.4 F (38 C), mild Pain (PIS 1-3), for adult patients may also give for higher pain score per patient preference, Starting on Tue02/17/24 at 1723Maximum dose of acetaminophen is 4000 mg from all sources in 24 hours. 02/25/2024 aborted albuterol sulfate 90 mcg/actuation HFA aerosol inhaler Inhale 2 puffs into the lungs every 6 (six) hours as needed for wheezing or shortness of breath. 02/25/2024 active sodium chloride 0.9 % flush 3 mL 3 mL, IV Push, Every 8 Hours Scheduled, First dose on Tue02/17/24 at 2200For PIV lock flush only. 02/25/2024 aborted polyvinyl alcohol (LIQUITEARS) 1.4 % ophthalmic solution Place 1 drop into both eyes every 6 (six) hours as needed for dry eyes. 02/25/2024 active ondansetron (ZOFRAN) 4 mg tablet Take 1 tablet (4 mg total) by mouth every 8 (eight) hours as needed for nausea. 02/25/2024 active midazolam (PF) (VERSED) injection 5 mg 5 mg, Intramuscular, ONCE, On Tue02/17/24 at 1715, For 1 doseIn Non-critical care areas administer as IM ONLY and monitor blood pressure and respiratory status (pulse oximetry and respiratory rate) at baseline and every 15 min x 3. Caution use IM in patients with platelet <50,000 per microliter, IN 02/25/2024 completed sodium phosphates (FLEET ENEMA) 19-7 gram/[address] 1 enema rectally daily as needed (constipation). Only if bisacodyl suppository if ineffective 02/25/2024 active enoxaparin (LOVENOX) syringe 40 mg 40 mg, Subcutaneous, Every 24 Hours Scheduled (Daily), First dose on Tue02/18/24 at 0900Contraindicated with epidural use. Common Side Effects: Bruising, minor and major bleeding. 02/25/2024 aborted melatonin tablet 3 mg 3 mg, Oral, Nightly PRN, insomnia, Starting on Tue02/17/24 at 1723Recommended to administer at least 60 minutes prior to intended bedtime 02/25/2024 aborted diphenhydrAMINE (BENADRYL) 25 mg capsule Take 1 capsule (25 mg total) by mouth daily as needed (insomnia). 02/25/2024 active senna (SENOKOT) 8.6 mg tablet Take 1 tablet (8.6 mg total) by mouth daily as needed for constipation. 02/25/2024 active OLANZapine (ZYPREXA) 5 mg tablet Take 1 tablet (5 mg total) by mouth at bedtime. 02/25/2024 active LORazepam (ATIVAN) injection 2 mg 2 mg, Intramuscular, ONCE, On Tue02/17/24 at 1930, For 1 doseCommon Side Effects:?Confusi on, dizziness, drowsiness and mood changes.?Contain s propylene glycol, which may be associated with toxicity when administered at high doses or for prolonged periods.??If ordered IV Push: Dilute with an equal 02/25/2024 completed oxyCODONE (ROXICODONE) Immediate Release tablet 5 mg 5 mg, Oral, EVERY 4 HOURS PRN, moderate Pain (PIS 4-6), for adult patients may also give for higher pain score per patient preference, Starting on Tue02/17/24 at 1723, For 7 daysCommon Side Effects: Confusion, nausea, vomiting, drowsiness, constipation, breathing problems. 02/25/2024 aborted multivitamin tablet Take 1 tablet by mouth daily. 02/25/2024 active bisacodyL (DULCOLAX, BISACODYL,) [address] 1 suppository (10 mg total) rectally daily as needed for constipation (if senna is ineffective). 02/25/2024 active hydrALAZINE (APRESOLINE) injection/vial 5 mg 5 mg, IV Push, EVERY 6 HOURS PRN, systolic blood pressure greater than: (Specify in comments field), SBP>160, Starting on Tue02/17/24 at 1807Hold for SBP < 90 mm Hg.?If ordered IV Push, administer undiluted at a rate of 5 mg over 1 minute. RECOMMENDED monitoring includes HR and BP baseline and Q15 02/25/2024 aborted levETIRAcetam (KEPPRA) injection (ADULTS) 1,000 mg 1,000 mg, IV Push, Every 12 Hours Scheduled, First dose (after last modification) on 02/18/24 at 0900Maximum dose of 4,500 mg. Administer undiluted at a maximum rate of 500 mg/minute. If necessary, use multiple syringes to draw up the total dose. Do not draw up more than 3 vials per single sy 02/25/2024 aborted divalproex (DEPAKOTE DR) 250 mg delayed release tablet Take 1 tablet (250 mg total) by mouth 2 (two) times daily. 02/25/2024 active divalproex (DEPAKOTE DR) 500 mg delayed release tablet Take 1 tablet (500 mg total) by mouth 2 (two) times daily. 02/25/2024 active melatonin 5 mg tablet Take 1 tablet (5 mg total) by mouth at bedtime. 02/25/2024 active Problems Problem Status Onset Date Problem Type Date of Resoluti on Source Seizure active 2024-02-17 ProblemAct [facility]
--- OUTSIDE RECORDS SUMMARY | 2024-07-21 10:16 | XMS_ITS | Continuity of Care Document ---
Author Organization 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, [address] [place] [address], [id number], [place] tel:[phone] [facility] Behavioral Health/EP No Information Provider Conversion . . Family History Family Member Type Diagnosis Age At Onset No Information Payers Payer name Insurance type Covered republican ID Authoriza tion(s) No Information Social History [...]
--- NOTE | 2024-07-21 10:17 | MHC.EDTECH ---
Addendum entered by Ashwini Dennis 07/21/24 10:29: Lab draw unsuccessfully attempted by 2 techs at 2 attempts each. RN Anyi and Provider Promise Grant aware Original Note: Lab draw unsuccessfully attempted by 2 techs at 2 attempts each. JOHNNIE De Santiago and Provider Promise Sheriff aware.
--- OUTSIDE RECORDS SUMMARY | 2024-07-21 10:17 | XMS_ITS | Continuity of Care Document ---
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 Name Role Phone Nain COLE, Kathy Unavailable Unavailable Allergies, Adverse Reactions, Alerts Substance Reaction Status Criticality SERTRALINE HCL Active No Informatio n Medications Medication Instructions Dosage Effective Dates (start - stop) Status Comments Saline Nasal 0.65 % spray aerosol instill 3 Drop by Nasal route every 3 hours 3 Drop - Active ibuprofen 600 mg tablet take 1 tablet by oral route 3 times every day with food 600 MG - Active Qvar RediHaler 40 mcg/actuation HFA breath activated aerosol inhale 1 puff by inhalation route 2 times every day 40 MCG - Active albuterol sulfate HFA 90 mcg/actuation aerosol inhaler inhale 2 puff by inhalation route every 4 - 6 hours as needed - Active fluticasone propionate 50 mcg/actuation nasal spray,suspension spray 1 - 2 spray by intranasal route every day in each nostril as needed 50-100 MCG Nov-16-2021 - Active acetaminophen 500 mg capsule take 2 capsule by oral route every 8 hours as needed 1000 MG - Active lisinopril 10 mg tablet take 1 tablet by oral route every day 10 MG - Active pantoprazole 40 mg tablet,delayed release take 1 tablet by oral route every day 40 MG - Active citalopram 10 mg tablet take 1 tablet by oral route every day 10 MG - Active quetiapine 25 mg tablet take 1 tablet by oral route 3 times every day as needed 25 MG - Active Keppra 100 mg/mL oral solution take 5 milliliter by oral route 2 times every day 500 MG - Active olanzapine 5 mg tablet take 1 tablet by oral route every day 5 MG - Active Depakote 500 mg tablet,delayed release take 1 tablet by oral route 2 times every day 500 MG - Active trazodone 100 mg tablet take 1 tablet by oral route every day after meals 100 MG - Active Procedures Procedure Date Behavioral Health Non Billable Encounter Indiv.Psychotherapy 30 Minutes(16-37) OFFICE VISIT ESTAB PT 30-39 MIN 022 OFFICE/OUTPATIENT VISIT EST PT 20-29 MIN S Comp, 1 Surf, Posterior $20 Lab Fee Limit Oral Exam $0.00 Lab Fee Behavioral Health Non Billable Encounter Indiv.Psychotherapy 30 Minutes(16-37) Ut Indiv.Psychotherapy 30 Minutes(16-37) Ut OFFICE VISIT ESTAB PT 10-19 MINS 2021 OFFICE/OUTPATIENT VISIT EST PT 20-29 MIN S OFFICE VISIT ESTAB PT 10-19 MINS 2021 OFFICE/OUTPATIENT VISIT EST PT 20-29 MIN S Comp, 2 Surf, Posterior $20 Lab Fee Bryanna 2 +SARS Antigen CHASITY OFFICE/OUTPATIENT VISIT EST PT 20-29 MIN S OFFICE VISIT ESTAB PT 30-39 MIN 021 Prophylaxis - Adult $0.00 Lab Fee Oral Hygiene Instructions Periodic oral evaluation $0.00 Lab Fee Dental Caries Full Mouth Series Periodontal Disease Periodontal Disease Caries Risk Asses_High Risk Dental Caries OFFICE/OUTPATIENT VISIT EST PT 20-29 MIN S CHT VISIT IN OFFICE Indiv.Psychotherapy 30 Minutes(16-37) Ju OFFICE VISIT ESTAB PT 30-39 MIN CHT VISIT IN OFFICE Indiv.Psychotherapy 30 Minutes(16-37) Kalyani OFFICE VISIT ESTAB PT 30-39 MIN Left Without Being Seen Indiv.Psychotherapy 45 Minutes (38-52) O Indiv.Psychotherapy 30 Minutes(16-37) Oc Left Without Being Seen OFFICE/OUTPATIENT VISIT, EST OFFICE/OUTPATIENT VISIT, EST Left Without Being Seen Left Without Being Seen OFFICE VISIT ESTAB PT 10 MIN OFFICE VISIT ESTAB PT 10 MIN Specimen Handling OFFICE VISIT ESTAB PT 10 MIN Indiv.Psychotherapy 30 Minutes(16-37) Ju Left Without Being Seen OFFICE VISIT ESTAB PT 10 MIN Behavioral Health Non Billable Encounter Left Without Being Seen Left Without Being Seen Behavioral Health Non Billable Encounter OFFICE VISIT ESTAB PT 10 MIN Behavioral Health Non Billable Encounter Behavioral Health Non Billable Encounter Indiv.Psychotherapy 30 Minutes(16-37) Fe OFFICE VISIT ESTAB PT 10 MIN Indiv.Psychotherapy 30 Minutes(16-37) Ja Indiv.Psychotherapy 30 Minutes(16-37) No Periodic oral evaluation $0.00 Lab Fee Bitewing, [employer] Films Caries Risk Asses_High Risk Dental Caries Indiv.Psychotherapy 30 Minutes(16-37) Oc Indiv.Psychotherapy 30 Minutes(16-37) Oc Electrocardiogram, complete OFFICE/OUTPATIENT VISIT, EST Indiv.Psychotherapy 30 Minutes(16-37) Se p- Indiv.Psychotherapy 30 Minutes(16-37) Au Indiv.Psychotherapy 45 Minutes (38-52) J URINE DIP NON-AUTO WITHOUT MICRO 2018 OFFICE/OUTPATIENT VISIT, EST OFFICE/OUTPATIENT VISIT, EST Indiv.Psychotherapy 45 Minutes (38-52) J FAMILY/COUPLE THARAPY 45-60 MIN. 2018 Indiv.Psychotherapy 45 Minutes (38-52) M OFFICE/OUTPATIENT VISIT, EST Limit Oral Exam $0.00 Lab Fee Radiograph Frst Film Radiograph Frst Film Radiograph Frst Film Radiograph, Laya Add Film OFFICE VISIT ESTAB PT 25 MIN Care Coordination Care Coordination Care Coordination Limit Oral Exam Radiograph Frst Film Dental Treatment Plan Complete 18 Removal Erupted Tooth OFFICE VISIT ESTAB PT 25 MIN Prophylaxis - Adult Oral Hygiene Instructions Care Coordination Care Coordination Periodic oral evaluation Bitewing, [employer] Films Radiograph Frst Film Periodontal Disease Caries Risk Asses_Mod Risk Dental Treatment Plan Complete 17 Oral Surgery Appointment - 15 Minutes De Care Coordination IMMUNIZATION ADMIN 1ST VACCINE 17 Flu Vaccine >3 Years OFFICE/OUTPATIENT VISIT, EST Care Coordination OFFICE/OUTPATIENT VISIT, EST Care Coordination OFFICE/OUTPATIENT VISIT, EST Limit Oral Exam Dental Caries Radiograph Frst Film International Trade Manager Referral Limit Oral Exam Radiograph Frst Film Sedative Filling Dental Caries Dental Caries No Charge Per Dentist IMMUNIZATION ADMIN 1ST VACCINE 16 Flu Vaccine >3 Years OFFICE/OUTPATIENT VISIT, EST Periodic oral evaluation Bitewing, [employer] Films Caries Risk Asses_High Risk Dental Caries Sedative Filling Dental Caries Radiograph Frst Film OFFICE/OUTPATIENT VISIT, EST Care Coordination Indiv.Psychotherapy 30 Minutes 16 OFFICE/OUTPATIENT VISIT, EST Care Coordination Indiv. Diag. Evaluation (Physician) Amalgam Three Surfaces Permanent 2015 Dental Caries Dental Caries OFFICE VISIT ESTAB PT 25 MIN Indiv.Psychotherapy 30 Minutes 16 Indiv.Psychotherapy 45 Minutes 16 PREVENT VISIT EST 18-39 Indiv.Psychotherapy 45 Minutes 16 Indiv.Psychotherapy 45 Minutes 16 [employer] Two Surfaces Permanent 15 Dental Caries Dental Caries Dental Caries Indiv.Psychotherapy 30 Minutes 15 Indiv.Psychotherapy 45 Minutes 15 IMMUNIZATION ADMIN 1ST VACCINE 15 Flu Vaccine >3 Years OFFICE/OUTPATIENT VISIT, EST Care Coordination Prophylaxis - Adult Schedule Dental Visit Appointment Indiv.Psychotherapy 45 Minutes 15 Psychiatric Diagnostic Evaluation ( Non MD) OFFICE/OUTPATIENT VISIT, EST Comprehensve Oral Exam Asthma Full Mouth Series OFFICE/OUTPATIENT VISIT, EST OFFICE/OUTPATIENT VISIT, EST Limit Oral Exam Radiograph Frst Film Radiograph, Laya Add Film Left Without Being Seen IMMUNIZATION ADMIN 1ST VACCINE 14 TDAP - State Supplied 7 And Older PREVENT VISIT NEW AGE 18-39 Family Resource Counselor Advance Directives Directive Yes / No Effective Date File Name No Information Encounters Encounter Description Practice Location Reason(s) For Visit Diagnoses Date Provider Providers Copied on Encounter [facility], [address] [place] [address], [id number] , tel:[phone] [facility] No Information 3 Nain Kathy. [address] [place], [place], [id number], [place]. tel:[phone] [facility], [address] [place] [address], [id number] , tel:[phone] [facility] No Information 2 Nain Kathy. [address] [place], [place], [id number], [place]. tel:[phone] [facility], [address] [place] [address], [id number] , tel:[phone] [facility] Major depressv disorder, single episode, in partial remis 2 Jurado Flavio. [address] [place], [address], [place]. tel:[phone] Referring Provider: Kathy Gillette, [address] [place], [address] . tel:[phone] Indiv.Psycho therapy 30 Minutes(16-3 7) [employer] [address] [place] [address], [id number] , [place] tel: [phone] [facility] Major depressv disorder, single episode, in partial remis 2 Adrien Muniz. [address] [place], [address], [place]. tel: [phone] Referring Provider: Kathy Gillette, [address] [place] [address], [address] . tel:[phone] OFFICE VISIT ESTAB PT 30-39 MIN [employer] [address] [place] [address], [id number] , [place] tel: [phone] [facility] Depression (chief complaint)anx iety (chief complaint)tv (chief complaint) Essential hypertensionM ild intermittent asthma without complicationP seudoseizureS evere episode of recurrent major depressive disorder, without psychotic featuresSubst ance abuse 2 Nain Tuckeria. [address] [place], [place], [id number], [place]. tel: [phone] Referring Provider: Kathy Gillette, [address] [place] [address], [address] . tel:[phone] OFFICE/OUTPA TIENT VISIT EST PT 20-29 MINS [employer] [address] [place] [address], [id number] , [place] tel: [phone] [facility] Follow Up of Anxiety (chief complaint)Fol low Up of depression (chief complaint)Fol low Up of TV (chief complaint) Pseudoseizure Severe episode of recurrent major depressive disorder, without psychotic featuresSubst ance abuseEssentia l hypertensionM ild intermittent asthma without complication 2 Nain Kathy. [address] [place], [place], [id number], [place]. tel: [phone] Referring Provider: Kathy Gillette, [address] [place], [address] . tel:[phone] [facility] [address] [place] [address], [id number] , [place] tel: [phone] [facility] Dental caries on smooth surface penetrating into dentinEncount er for other general examinationEn counter for screening for dental disorders 2 Jimmy Hernandez. [address] [place] [address], [id number], [place]. tel:[phone] Referring Provider: Mary Marquez, [address] [place] [address], [address] . tel:[phone] [employer] [address] [place] [address], [id number] , [place] tel: [phone] [facility] Major depressv disorder, single episode, in partial remis 2 Adrien Muniz. [address] [place] [address], [id number], [place]. tel:[phone] Referring Provider: Flavio Ugalde, [address] [place] [address], [facility]. tel:[phone] Indiv.Psycho therapy 30 Minutes(16-3 7) [employer] [address] [place] [address], [id number] , [place] tel: [phone] [facility] Major depressv disorder, single episode, in partial remis 2 Adrien Muniz. [address] [place] [address], [id number], [place]. tel:[phone] Referring Provider: Flavio Ugalde, [address] [place] [address], [facility]. tel:[phone] Indiv.Psycho therapy 30 Minutes(16-3 7) [employer] [address] [place] [address], [id number] , [place] tel: [phone] [facility] Major depressv disorder, single episode, in partial remis 2 Jurado Flavio. [address] [place], [address], [place]. tel:[phone] Referring Provider: Flavio Ugalde, [address] [place] [address], [facility]. tel:[phone] OFFICE VISIT ESTAB PT 10-19 MINS [employer] [address] [place] [address], [id number] , [place] tel: [phone] [facility] Nose bleeds (chief complaint)TV (chief complaint) Epistaxis 2 Nain Kathy. [address] [place], [place], [id number], [place]. tel:[phone] Referring Provider: Kathy Gillette, [address] [place], [address] . tel:[phone] OFFICE/OUTPA TIENT VISIT EST PT 20-29 MINS [employer] [address] [place] [address], [id number] , [place] tel: [phone] [facility] back pain (chief complaint) Major depressive disorder, single episode, in partial remissionMild intermittent asthma without complicationP seudoseizureE ssential hypertensionS ubstance use disorderPoste rior chest pain Sep- 2 Nain Kathy. [address] [place], [place], [id number], [place]. tel:[phone] Referring Provider: Kathy Gillette, [address] [place], [address] . tel:[phone] OFFICE VISIT ESTAB PT 10-19 MINS [employer] [address] [place] [address], [id number] , [place] tel: [phone] [facility] Letter for immigration (chief complaint) Essential hypertensionM ajor depressive disorder, single episode, in partial remissionMild intermittent asthma without complicationP seudoseizure 2 Nain Kathy. [address] [place], [place], [id number], [place]. tel:[phone] Referring Provider: Kathy Gillette, [address] [place], [address] . tel:[phone] OFFICE/OUTPA TIENT VISIT EST PT 20-29 MINS [employer] [address] [place] [address], [id number] , [place] tel: [phone] [facility] Follow Up of Hypertension (chief complaint) Essential hypertensionM ajor depressive disorder, single episode, in partial remissionMild intermittent asthma without complicationP seudoseizure 2 Nain Koricia. [address] [place], [place], [id number], [place]. tel: [phone] Referring Provider: Kathy Gillette, [address] [place], [address] . tel:[phone] [facility], [address] [place] [address], [id number] , [place] tel: [phone] [facility] Dental caries on smooth surface penetrating into dentinEncount er for other general examination 2 Jimmy Hernandez. [address] [place] [address], [id number], [place]. tel:[phone] Referring Provider: Mary Marquez, [address] [place] [address], [address] . tel:[phone] [facility], [address] [place] [address], [id number] , [place] tel: [phone] [address] [place] [address] Medical No Information 2 Patricia franklin RN. [address] [place] [address], [id number], [place]. OFFICE/OUTPA TIENT VISIT EST PT 20-29 MINS [employer] [address] [place] [address], [id number] , [place] tel: [phone] [facility] Follow Up of Hypertension (chief complaint) Essential hypertensionM ild intermittent asthma without complicationM ajor depressive disorder, single episode, in partial remissionPseu doseizure 1 Nain Kathy. [address] [place], [place], [id number], [place]. tel:[phone] [facility], [address] [place] [address], [id number] , [place] tel: [phone] [facility] No Information 1 Nain Kathy. [address] [place], [place], [id number], [place]. tel:[phone] [employer] [address] [place] [address], [id number] , tel: [phone] [facility] Pseudoseizure 1 Nain Kathy. [address] [place], [place], [id number], [place]. tel:[phone] OFFICE VISIT ESTAB PT 30-39 MIN [employer] [address] [place] [address], [id number] , [place] tel: [phone] [facility] Back pain (chief complaint)Anx iety (chief complaint)Dep ression (chief complaint) Back pain, unspecified back location, unspecified back pain laterality, unspecified chronicityMaj or depressive disorder, single episode, in partial remissionMild intermittent asthma without complicationE ssential hypertensionP seudoseizure 1 Nain Kathy. [address] [place], [place], [id number], [place]. tel:[phone] Referring Provider: Kathy Gillette, [address] [place] [address], [address] . tel:[phone] [employer] [address] [place] [address], [id number] , tel: [phone] [facility] Deposits [accretions] on teethEncounte r for other general examinationEn counter for screening for dental disordersDent al caries, unspecifiedCh ronic periodontitis , unspecifiedRi sk for dental caries, high 1 Jimmy Hernandez. [address] [place] [address], [id number], [place]. tel:[phone] Referring Provider: Mary Marquez, [address] [place] [address], [address] . tel:[phone] [employer] [address] [place] [address], [id number] , [place] tel:[phone] [facility] No Information 1 Nain Chavez. [address] [place], [place], [id number], [place]. tel: [phone] OFFICE/OUTPA TIENT VISIT EST PT 20-29 MINS [employer] [address] [place] [address], [id number] , [place] tel: [phone] [facility] Follow Up of Anxiety (chief complaint)Fol low Up of Depression (chief complaint)Idalia k pain (chief complaint) Major depressive disorder, single episode, in partial remissionMild intermittent asthma without complicationE ssential hypertensionP seudoseizureB ack pain, unspecified back location, unspecified back pain laterality, unspecified chronicity 1 Nain Chavez. [address] [place], [place], [id number], [place]. tel: [phone] Referring Provider: Kathy Gillette, [address] [place] [address], [address] . tel:[phone] [facility], [address] [place] [address], [id number] , [place] tel: [phone] [address] [place] [address] Medical No Information 1 Provider1 [facility]. . Referring Provider: First Provider1. Indiv.Psycho therapy 30 Minutes(16-3 7) [employer] [address] [place] [address], [id number] , [place] tel: [phone] [facility] Major depressv disorder, single episode, in partial remis 1 Adrien Muniz. [address] [place] [address], [id number], [place]. tel:[phone] Referring Provider: Flavio Ugalde, [address] [place] [address], [address]. tel:[phone] OFFICE VISIT ESTAB PT 30-39 MIN [employer] [address] [place] [address], [id number] , [place] tel: [phone] [facility] Follow Up of Depression (chief complaint) Episode of recurrent major depressive disorder, unspecified depression episode severityEssen tial hypertensionP seudoseizureM ild intermittent asthma without complication 1 Nain Chavez. [address] [place], [place], [id number], . tel:[phone] Referring Provider: Kathy Gillette, [address] [place], [address] . tel:[phone] [facility], [address] [place] [address], [id number] , tel:[phone] [address] [place] [address] No Information 1 Provider1 [facility]. . Referring Provider: [facility] Provider1. Indiv.Psycho therapy 30 Minutes(16-3 7) [employer] [address] [place] [address], [id number] , tel: [phone] [facility] Major depressv disorder, single episode, in partial remis 1 Adrien Muniz. [address] [place] [address], [address], [place]. tel:[phone] Referring Provider: Flavio Ugalde, [address] [place] [address], [address]. tel:[phone] OFFICE VISIT ESTAB PT 30-39 MIN [employer] [address] [place] [address], [id number] , tel: [phone] [facility] Follow Up of Anxiety (chief complaint)Dep ression (chief complaint) Episode of recurrent major depressive disorder, unspecified depression episode severityPseud oseizureEssen tial hypertensionM ild intermittent asthma without complication 1 Nain Chavez. [address] [place], [place], [id number], [place]. tel:[phone] Referring Provider: Kathy Gillette, [address] [place], [address] . tel:[phone] [employer] [address] [place] [address], [id number] , tel:[phone] [facility] No Information 0 Nain Kathy. [address] [place], [place], [id number], [place]. tel: [phone] Referring Provider: Kathy Gillette, [address] [place], [address] . tel:[phone] Indiv.Psycho therapy 45 Minutes (38-52) [employer] [address] [place] [address], [id number] , [place] tel: [phone] [facility] Major depressv disorder, single episode, in partial remis 0 Adrien Muniz. [address] [place], [address], [place]. tel: [phone] Referring Provider: Flavio Ugalde, [address] [place] [address], [address]. tel:[phone] Indiv.Psycho therapy 30 Minutes(16-3 7) [employer] [address] [place] [address], [id number] , [place] tel: [phone] [facility] Major depressv disorder, single episode, in partial remis 0 Adrien Muniz. [address] [place], [address], [place]. tel: [phone] Referring Provider: Flavio Ugalde, [address] [place] [address], [address]. tel:[phone] [employer] [address] [place], [place], [id number] , [place] tel: [phone] [facility] No Information 0 Patricia Resendiz. [address] [place], [place], [id number], [place]. tel: [phone] Referring Provider: Astrid Gomez, [address] [place], [address] . tel:[phone] OFFICE/OUTPA TIENT VISIT, EST [employer] [address] [place] [address], [id number] , [place] tel: [phone] [facility] insomnia (chief complaint) Psychophysiol ogical insomnia Sep-1 0 Zheng Márquez. [address] [place] [address], [address], [place]. tel: [phone] Referring Provider: Yulisa Calzada, [address] [place] [address], [address]. tel:[phone] OFFICE/OUTPA TIENT VISIT, EST [employer] [address] [place] [address], [id number] , [place] tel: [phone] [address] [place] [address] hand pain (chief complaint) Hand pain, right Sep-0 0 Ronnell Thapa. [address] [place] [address], [id number], [place]. tel: [phone] Referring Provider: Alanis Reynaga, [address] [place] [address], [address] . tel:[phone] [facility], [address] [place] [address], [id number] , tel: [phone] [facility] No Information Stewart- 0 Nain Chavez. [address] [place] [address], [id number], [place]. tel: [phone] Referring Provider: Kathy Gillette, [address] [place] [address], [address] . tel:[phone] [facility], [address] [place] [address], [id number] , [place] tel: [phone] [facility] Major depressv disorder, single episode, in partial remis Cory- 0 Adrien Muniz. [address] [place] [address], [address], [place]. tel: [phone] Referring Provider: Flavio Ugalde, [address] [place] [address], [address]. tel:[phone] OFFICE VISIT ESTAB PT 10 MIN [employer] [address] [place] [address], [id number] , tel: [phone] [facility] COVID (chief complaint) COVID-19 virus infection 0 Nain Kathy. [address] [place], [place], [id number], . tel:[phone] Referring Provider: Kathy Gillette, [address] [place], [address] . tel:[phone] OFFICE VISIT ESTAB PT 10 MIN [employer] [address] [place] [address], [id number] , tel: [phone] [facility] COVID-19 (chief complaint) COVID-19 virus infection 0 Nain Kathy. [address] [place], [place], [id number], . tel:[phone] Referring Provider: Kathy Gillette, [address] [place], [address] . tel:[phone] [facility], [address] [place] [address], [id number] , tel: [phone] [address] [place] [address] Express No Information 0 Nain Kathy. [address] [place], [place], [id number], [place]. tel:[phone] Referring Provider: Kathy Gillette, [address] [place], [address] . tel:[phone] OFFICE VISIT ESTAB PT 10 MIN [employer] [address] [place] [address], [id number] , [place] tel: [phone] [facility] Chest pain/ cough (chief complaint) CoughChest pain, unspecified type 0 Nain Kathy. [address] [place], [place], [id number], [place]. tel:[phone] Indiv.Psycho therapy 30 Minutes(16-3 7) [employer] [address] [place] [address], [id number] , [place] tel: [phone] [facility] Major depressv disorder, single episode, in partial remis 0 Adrien Muniz. [address] [place], [address], [place]. tel:[phone] Referring Provider: Flavio Ugalde, [address] [place] [address], [address]. tel:[phone] [employer] [address] [place] [address], [id number] , tel: [phone] [facility] No Information 0 Adrien Muniz. [address] [place] [address], [id number], [place]. tel:[phone] Referring Provider: Flavio Ugalde, [address] [place] [address], [address]. tel:[phone] OFFICE VISIT ESTAB PT 10 MIN [employer] [address] [place] [address], [id number] , tel: [phone] [facility] Thoracic back pain (chief complaint)Ast hma (chief complaint) Shortness of breathHistory of asthmaChronic midline thoracic back painOther chronic pain 0 Nain Chavez. [address] [place] [address], [id number], [place]. tel:[phone] Referring Provider: Kathy Gillette, [address] [place], [address] . tel:[phone] [employer] [address] [place] [address], [id number] , [place] tel: [phone] [facility] Major depressv disorder, single episode, in partial remis 0 Adrien Muniz. [address] [place] [address], [address], [place]. tel:[phone] Referring Provider: Flavio Ugalde, [address] [place] [address], [address]. tel:[phone] [employer] [address] [place] [address], [id number] , tel: [phone] [facility] No Information 0 Jose Allen. [address] [place] [address], [id number], . tel: [phone] Referring Provider: Alejandro Garcia, [address] [place] [address], [address] . tel:[phone] [facility] [employer] [address] [place] [address], [id number] , tel: [phone] [facility] No Information 0 Adrien Muniz. [address] [place] [address], [address], [place]. tel: [phone] Referring Provider: Flavio Ugalde, [address] [place] [address], [facility]. tel:[phone] [employer] [address] [place] [address], [id number] , tel: [phone] [facility] Major depressv disorder, single episode, in partial remis 0 Adrien Muniz. [address] [place] [address], [address], [place]. tel: [phone] Referring Provider: Flavio Ugalde, [address] [place] [address], [facility]. tel:[phone] OFFICE VISIT ESTAB PT 10 MIN [employer] [address] [place] [address], [id number] , tel: [phone] [facility] Depression (chief complaint)Dwight h (chief complaint) Major depressive disorder, recurrent, in partial remissionRash of handsEssentia l hypertension Oct- 0 Nain Chavez. [address] [place] [address], [id number], [place]. tel: [phone] Referring Provider: Kathy Gillette, [address] [place] [address], [address] . tel:[phone] [employer] [address] [place] [address], [id number] , [place] tel: [phone] [facility] Major depressv disorder, single episode, in partial remis 0 Adrien Muniz. [address] [place], [address], [place]. tel:[phone] Referring Provider: Flavio Ugalde, [address] [place] [address], [facility]. tel:[phone] [employer] [address] [place] [address], [id number] , [place] tel: [phone] [facility] Major depressv disorder, single episode, in partial remis 0 Adrien Muniz. [address] [place], [address], [place]. tel:[phone] Referring Provider: Flavio Ugalde, [address] [place] [address], [facility]. tel:[phone] Indiv.Psycho therapy 30 Minutes(16-3 7) [employer] [address] [place] [address], [id number] , tel: [phone] [facility] Major depressv disorder, single episode, in partial remis 0 Adrien Muniz. [address] [place] [address], [address], [place]. tel:[phone] Referring Provider: Flavio Ugalde, [address] [place] [address], [facility]. tel:[phone] OFFICE VISIT ESTAB PT 10 MIN [employer] [address] [place] [address], [id number] , tel: [phone] [facility] ER/Seizure (chief complaint) Body mass index (BMI) 31.0-31.9, adultModerate episode of recurrent major depressive disorderHisto ry of seizuresHisto ry of alcohol abuse 0 Nain Kathy. [address] [place], [place], [id number], [place]. tel: [phone] Indiv.Psycho therapy 30 Minutes(163 7) [employer] [address] [place] [address], [id number] , tel: [phone] [facility] Major depressv disorder, single episode, in partial remisAlcohol use, unspecified with intoxication, unspecified 0 6- 0 Adrien Muniz. [address] [place], [address], [place]. tel: [phone] Referring Provider: Flavio Ugalde, [address] [place] [address], [address]. tel:[phone] Indiv.Psycho therapy 30 Minutes(163 7) [employer] [address] [place] [address], [id number] , tel: [phone] [facility] Major depressv disorder, single episode, in partial remis 2 9 Juardosiva Muniz. [address] [place], [address], [place]. tel: [phone] [employer] [address] [place] [address], [id number] , tel: [phone] [facility] Encounter for screening for dental disordersEnco unter for other general examinationRi sk for dental caries, highDental caries, unspecified 0 8-201 9 Jimmy Hernandez. [address] [place] [address], [id number], [place]. tel:[phone] Referring Provider: Mary Marquez, [address] [place] [address], [address] . tel:[phone] Indiv.Psycho therapy 30 Minutes(163 7) [employer] [address] [place] [address], [id number] , tel: [phone] [facility] Major depressv disorder, single episode, in partial remis Apr-3 0-201 9 Adrien Muniz. [address] [place], [address], . tel: [phone] Indiv.Psycho therapy 30 Minutes(16-3 7) [employer] [address] [place], [place], [id number] , [place] tel:[phone] [facility] Major depressv disorder, single episode, in partial remis 3 9 Adrien Muniz. [address] [place], [address], [place]. tel: [phone] Referring Provider: Flavio Ugalde, [address] [place], [address]. tel:[phone] OFFICE/OUTPA TIENT VISIT, EST [employer] [address] [place] [address], [id number] , [place] tel: [phone] [facility] depression (chief complaint) Body mass index (BMI) 31.0-31.9, adultLeft-clary ed chest painPalpitati onsRecurrent major depressive disorder, in remissionEsse ntial hypertension 9 Nain Kathy. [address] [place], [place], [id number], [place]. tel: [phone] Indiv.Psycho therapy 30 Minutes(16-3 7) [employer] [address], [place], [id number] , [place] tel: [phone] [facility] Major depressv disorder, single episode, in partial remis 9 Adrien Muniz. [address] [place], [address], [place]. tel:[phone] Referring Provider: Flavio Ugalde, [address] [place], [address]. tel:[phone] Indiv.Psycho therapy 30 Minutes(16-3 7) [employer] [address], [place], [id number] , [place] tel:[phone] [facility] Major depressv disorder, single episode, in partial remis 9 Adrien Muniz. [address] [place], [address], [place]. tel: [phone] Referring Provider: Flavio Ugalde, [address] [place] [address], [address]. tel:[phone] Indiv.Psycho therapy 45 Minutes (38-52) [employer] [address] [place] [address], [id number] , [place] tel: [phone] [facility] Major depressv disorder, single episode, in partial remis 0 9 Adrien Muniz. [address] [place], [address], [place]. tel: [phone] Referring Provider: Flavio Ugalde, [address] [place] [address], [address]. tel:[phone] OFFICE/OUTPA TIENT VISIT, [facility] [employer] [address] [place] [address], [id number] , [place] tel: [phone] [facility] Anxiety (chief complaint) Body mass index (BMI) 31.0-31.9, adultPolycyth emiaMild intermittent asthma without complicationM ajor depressive disorder, recurrent, in partial remissionSeiz ures 9 Nain Kathy. [address] [place], [id number], [place]. tel: [phone] OFFICE/OUTPA TIENT VISIT, [facility] [employer] [address] [place] [address], [id number] , [place] tel: [phone] [facility] Anxiety (chief complaint) Body mass index (BMI) 31.0-31.9, adultEpilepsy , unspecified, not intractable, without status epilepticusBi polar 1 disorder 9 Nain Kathy. [address] [place], [place], [id number], [place]. tel: [phone] Indiv.Psycho therapy 45 Minutes (38-52) [employer] [address] [place] [address], [id number] , [place] tel: [phone] [facility] Major depressv disorder, single episode, in partial remis 9 Melissa Falcon. [address] [place], [address], [place]. tel: [phone] FAMILY/COUPL E THARAPY 45-60 MIN. [employer] [address] [place] [address], [id number] , [place] tel: [phone] [facility] Major depressv disorder, single episode, in partial remisBipolar schizoaffecti ve psychosis 9 Jurado Flavio. [address] [place], [address], [place]. tel: [phone] Referring Provider: Flavio Ugalde, [address] [place], [address]. tel:[phone] Indiv.Psycho therapy 45 Minutes (38-52) [employer] [address], [place], [id number] , [place] tel: [phone] [facility] Major depressv disorder, single episode, in partial remisCocaine dependence, in remissionCann abis dependence, in remissionAlco hol dependence, in remission 9 Jurado Flavio. [address] [place], [address], [place]. tel: [phone] OFFICE/OUTPA TIENT VISIT, EST [employer] [address] [place] [address], [id number] , [place] tel: [phone] [facility] Anxiety (chief complaint) Body mass index (BMI) 30.0-30.9, adultModerate episode of recurrent major depressive disorderAnxie tySeizures 9 Nain Chavez. [address] [place], [place], [id number], [place]. tel: [phone] Referring Provider: Kathy Gillette, [address] [place], [address] . tel:[phone] [employer] [address] [place] [address], [id number] , [place] tel:[phone] [facility] Encounter for screening for dental disordersEnco unter for other general examination 9 Jimmy Hernandez. [address] [place] [address], [id number], . tel: [phone] Referring Provider: Mary Marquez, [address] [place] [address], [address] . tel:[phone] OFFICE VISIT ESTAB PT 25 MIN [employer] [address] [place] [address], [id number] , [place] tel: [phone] [facility] MDD (chief complaint) Body mass index (BMI) 32.0-32.9, adultMajor depressive disorder, recurrent, in partial remissionEpil epsy, unspecified, not intractable, without status epilepticusMi ld intermittent asthma without complicationE ssential hypertension 8 Shira Begum. [address] [place], [place], [id number], [place]. tel: [phone] [employer] [facility], [address] [place] [address], [id number] , tel: [phone] [facility] Major depressive disorder, recurrent, in partial remission 8 [facility]. , [place], [address], [place]. Referring Provider: Benoit Gooden , [address] [place] [address], [address] . tel:[phone] [employer] [address] [place] [address], [id number] , [place] tel: [phone] [facility] Major depressive disorder, recurrent, in partial remission 8 [facility]. , [place], [address], [place]. [employer] [address] [place] [address], [id number] , tel: [phone] [facility] Epilepsy, unspecified, not intractable, without status epilepticusMa kvng depressive disorder, recurrent, in partial remission Fe0 8 [facility]. , [place], [address], [place]. Referring Provider: Benoit Gooden , [address] [place] [address], [address] . tel:[phone] [employer] [address] [place] [address], [id number] , tel: [phone] [facility] examination 8 Gilberto Mccall. [address] [place] [address], [id number], [place]. tel:[phone] Referring Provider: Cal Macias, [address] [place] [address], [address] . tel:[phone] [employer] [address] [place] [address], [id number] , tel: [phone] [facility] 8 Gilberto Tannerton. [address] [place] [address], [id number], [place]. tel:[phone] Referring Provider: Cal Macias, [address] [place] [address], [address] . tel:[phone] OFFICE VISIT ESTAB PT 25 MIN [employer] [address] [place] [address], [id number] , tel: [phone] [facility] nose bleeds (chief complaint) Obesity, unspecifiedAc [place] non-recurrent ethmoidal sinusitisEpil epsy, unspecified, not intractable, with status epilepticus 8 Giacomo Laboy. [address] [place] [address], [id number], [place]. tel:[phone] Referring Provider: Benoit Gooden , [address] [place] [address], [address] . tel:[phone] [employer] [address] [place] [address], [id number] , tel: [phone] [facility] 7 Demenezes Paola. [address] [place] [address], [address], [place]. tel:[phone] Referring Provider: Katie Mcbride, [address] [place] [address], [place], [address]. tel:[phone] [facility] [address] [place] [address], [id number] , tel: [phone] [facility] Epilepsy, unspecified, not intractable, without status epilepticusBi polar disorder, unspecified 7 [facility]. , [place], [address], [place]. [employer] [address] [place] [address], [id number] , tel: [phone] [facility] Bipolar disorder, unspecified 7 [facility]. , [place], [address], [place]. [employer] [address] [place] [address], [id number] , tel: [phone] [facility] examination 7 Gilberto Cal. [address] [place] [address], [id number], [place]. tel: [phone] Referring Provider: Cal Macias, [address] [place] [address], [address] . tel:[phone] [employer] [address] [place] [address], [id number] , tel: [phone] [facility] Bipolar disorder, unspecifiedEp ilepsy, unspecified, not intractable, without status epilepticus 7 [facility]. , [place], [address], [place]. OFFICE/OUTPA TIENT VISIT, EST [facility] [address] [place] [address], [id number] , tel: [phone] [facility] Bipolar disorder (chief complaint) Obesity, unspecifiedBi polar disorder, unspecifiedEp ilepsy, unspecified, not intractable, without status epilepticusEs sential hypertensionF atigue, unspecified type Jun-0 7 Giacomo Laboy. [address] [place] [address], [id number], . tel: [phone] Referring Provider: Benoit Gooden , [address] [place] [address], [address] . tel:[phone] [employer] [address] [place] [address], [id number] , tel: [phone] [facility] Bipolar disorder, unspecifiedEp ilepsy, unspecified, not intractable, without status epilepticus 7 [facility]. , [place], [address], [place]. Referring Provider: Benoit Gooden , [address] [place] [address], [address] . tel:[phone] OFFICE/OUTPA TIENT VISIT, [employer] [address] [place] [address], [id number] , tel: [phone] [facility] seizure (chief complaint)Fol low Up of Bipolar disorder (chief complaint) Obesity, unspecifiedBi polar disorder, unspecifiedEp ilepsy, unspecified, not intractable, without status epilepticus November-0 7 [facility] Astrid. [address] [place] [address], [id number], [place]. tel: [phone] Referring Provider: Benoit Gooden , [address] [place] [address], [address] . tel:[phone] [employer] [address] [place] [address], [id number] , [place] tel: [phone] [facility] Bipolar disorder, unspecifiedEp ilepsy, unspecified, not intractable, without status epilepticus 7 [facility]. , [place], [address], [place]. OFFICE/OUTPA TIENT VISIT, [employer] [address] [place] [address], [id number] , [place] tel: [phone] [facility] epilepsy (chief complaint) Bipolar disorder, unspecifiedEp ilepsy, unspecified, not intractable, without status epilepticus 7 Rodrigosona Laboy. [address] [place] [address], [id number], [place]. tel: [phone] Referring Provider: Jennifferkade Gooden , [address] [place] [address], [address] . tel:[phone] [employer] [address] [place] [address], [id number] , [place] tel: [phone] [facility] 7 [facility]3]. [address] [place] [address], [id number], [place]. tel:[phone] Referring Provider: Calporfirio Macias, [address] [place] [address], [address] . tel:[phone] [employer] [address] [place] [address], [id number] , [place] tel: [phone] [facility] 7 Taylor Hernandez. [address] [place] [address], [id number], [place]. tel:[phone] Referring Provider: Katie Mcbride, [address] [place] [address], [address]. tel:[phone] [employer] [address] [place] [address], [id number] , [place] tel: [phone] [facility] Epilepsy, unspecified, not intractable, without status epilepticus 6 [facility]. , [place], [address], [place]. [employer] [address] [place] [address], [id number] , [place] tel: [phone] [facility] 6 [facility]3]. [address] [place] [address], [id number], [place]. tel: [phone] Referring Provider: Katie Mcbride, [address] [place] [address], [address]. tel:[phone] OFFICE/OUTPA TIENT VISIT, [employer] [address] [place] [address], [id number] , [place] tel: [phone] [facility] of epilepsia (chief complaint) Bipolar disorder, unspecifiedEp ilepsy, unspecified, not intractable, without status epilepticusSh ortness of breath 0 6 Giacomo Laboy. [address] [place] [address], [id number], [place]. tel:[phone] Referring Provider: Benoit Gooden , [address] [place] [address], [address] . tel:[phone] [employer] [address] [place] [address], [id number] , [place] tel: [phone] [facility] 6 Reed Wilson. [address] [place] [address], [address], [place]. tel:[phone] Referring Provider: Katie Mcbride, [address] [place] [address], [address]. tel:[phone] [employer] [address] [place] [address], [id number] , [place] tel: [phone] [facility] 6 Reed Wilson. [address] [place] [address], [address], [place]. tel:[phone] Referring Provider: Katie Mcbride, [address] [place] [address], [address]. tel:[phone] OFFICE/OUTPA TIENT VISIT, [employer] [address] [place] [address], [id number] , [place] tel: [phone] [facility] ER (chief complaint) Epilepsy, unspecified, not intractable, without status epilepticusBi polar disorder, unspecified 6 Giacomo Laboy. [address] [place] [address], [id number], [place]. tel:[phone] Referring Provider: Benoit Gooden , [address] [place], [address] . tel:[phone] [employer] [address] [place] [address], [id number] , tel: [phone] [facility] Bipolar disorder, unspecified 6 [facility]. , [place], [address], [place]. Indiv.Psycho therapy 30 Minutes [employer] [address] [place] [address], [id number] , [place] tel: [phone] [facility] Major depressv disorder, single episode, in partial remisCocaine dependence, in remissionCann abis dependence, in remissionAlco hol dependence, in remission 6 Ann Khushi. [address] [place], [address], [place]. tel: [phone] Referring Provider: Benoit Gooden , [address] [place] [address], [address] . tel:[phone] OFFICE/OUTPA TIENT VISIT, EST [facility] [address] [place] [address], [id number] , tel: [phone] [facility] Shortness of breath (chief complaint) Epilepsy, unspecified, not intractable, without status epilepticusSh ortness of breathRash of hands 6 Giacomo Laboy. [address] [place] [address], [id number], [place]. tel: [phone] Referring Provider: Benoit Gooden , [address] [place], [address] . tel:[phone] [employer] [address] [place] [address], [id number] , [place] tel: [phone] [facility] Major depressive disorder, recurrent, in partial remission 6 [facility]. , [place], [address], [place]. Indiv. Diag. Evaluation (Physician) [employer] [address] [place] [address], [id number] , tel: [phone] [facility] Major depressv disorder, single episode, in partial remisCocaine dependence, in remissionCann abis dependence, in remissionAlco hol dependence, in remission 6 Gurmeet Woodard. [address] [place], [address], [place]. tel:[phone] Referring Provider: Benoit Gooden , [address] [place] [address], [address] . tel:[phone] [employer] [address] [place] [address], [id number] , tel: [phone] [facility] 6 Reed Wilson. [address] [place] [address], [address], . tel:[phone] Referring Provider: Katie Mcbride, [address] [place] [address], [facility]. tel:[phone] OFFICE VISIT ESTAB PT 25 MIN [employer] [address] [place] [address], [id number] , tel: [phone] [facility] of Hypertension (chief complaint)Fol low Up of B/L arm swelling (chief complaint) Arm swellingBipol ar disorder, unspecifiedEp ilepsy, unspecified, not intractable, without status epilepticusEs sential hypertensionS hortness of breath 6 Giacomo Laboy. [address] [place] [address], [id number], [place]. tel:[phone] Referring Provider: Benoit Gooden , [address] [place] [address], [address] . tel:[phone] Indiv.Psycho therapy 30 Minutes [employer] [address] [place] [address], [id number] , [place] tel: [phone] [facility] Major depressive disorder, recurrent, in partial remission 6 Seth Mckenzie. [address] [place], [address], [place]. tel: [phone] Referring Provider: Benoit Gooden , [address] [place] [address], [address] . tel:[phone] Indiv.Psycho therapy 45 Minutes [employer] [address] [place] [address], [id number] , [place] tel: [phone] [facility] Major depressive disorder, recurrent, in partial remission 6 Ann Khushi. [address] [place], [address], [place]. tel: [phone] Referring Provider: Benoit Gooden , [address] [place] [address], [address] . tel:[phone] PREVENT VISIT EST 18-39 [employer] [address] [place] [address], [id number] , [place] tel: [phone] [facility] Preventive exam (chief complaint) Encounter for general adult medical examination without abnormal findingsBipol ar disorder, unspecifiedEp ilepsy, unspecified, not intractable, without status epilepticusEs sential hypertensionA rm swellingTight ness in chest 6 Giacomo Laboy. [address], [place], [id number], [place]. tel: [phone] Referring Provider: Benoit Gooden , [address] [place] [address], [address] . tel:[phone] Indiv.Psycho therapy 45 Minutes [employer] [address] [place] [address], [id number] , [place] tel: [phone] [facility] Major depressive disorder, recurrent, in partial remission 6 Seth Mckenzie. [address] [place], [address], [place]. tel: [phone] Referring Provider: Benoit Gooden , [address] [place], [address] . tel:[phone] Indiv.Psycho therapy 45 Minutes [employer] [address] [place] [address], [id number] , [place] tel: [phone] [facility] Major depressive disorder, recurrent, in partial remission 6 [facility]. [address] [place], [address], [place]. tel: [phone] Referring Provider: Benoit Gooden , [address] [place] [address], [address] . tel:[phone] [employer] [address] [place] [address], [id number] , [place] tel: [phone] [facility] [address], [address], [place]. tel: [phone] Referring Provider: Lela Mojica, [address] [place] [address], [address]. tel:[phone] Indiv.Psycho therapy 30 Minutes [employer] [address] [place] [address], [id number] , [place] tel: [phone] [facility] Major depressive disorder, recurrent, in partial remission 5 [facility]. [address] [place], [address], [place]. tel: [phone] Referring Provider: Lela Mojica, [address] [place] [address], [address]. tel:[phone] Indiv.Psycho therapy 45 Minutes [employer] [address] [place] [address], [id number] , [place] tel: [phone] [facility] Major depressive disorder, recurrent, in partial remission [facility]. [address] [place], [address], [place]. tel: [phone] Referring Provider: Lela Mojica, [address] [place] [address], [address]. tel:[phone] OFFICE/OUTPA TIENT VISIT, EST [employer] [address] [place] [address], [id number] , [place] tel: [phone] [facility] Follow Up of Depression (chief complaint) Epilepsy, unspecified, not intractable, with status epilepticusMa kvng depressive disorder, recurrent, in partial remission 0- 5 Galina Vogel. [address] [place], [address], [place]. tel: [phone] Referring Provider: Lela Mojica, [address] [place], [address]. tel:[phone] [employer] [address] [place] [address], [id number] , [place] tel: [phone] [facility] Other depressive episodes 9 5 [facility]. , [place], [address], [place]. [employer] [address] [place] [address], [id number] , [place] tel: [phone] [facility] [address] [place], [place]. Referring Provider: Lela Mojica, [address] [place] [address], [address]. tel:[phone] Indiv.Psycho therapy 45 Minutes [employer] [address] [place] [address], [id number] , tel: [phone] [facility] Major depressive disorder, recurrent, in partial remission 5 Seth Mckenzie. [address] [place], [address], [place]. tel:[phone] Referring Provider: Lela Mojica, [address] [place] [address], [address]. tel:[phone] Psychiatric Diagnostic Evaluation ( Non MD) [facility] [address] [place] [address], [id number] , [place] tel: [phone] [facility] DepressionNon dependent alcohol abuse, unspecified drinking behavior 5 Seth Mckenzie. [address] [place], [address], [place]. tel:[phone] Referring Provider: Lela Mojica, [address] [place] [address], [address]. tel:[phone] OFFICE/OUTPA TIENT VISIT, [employer] [address] [place] [address], [id number] , [place] tel: [phone] [facility] depression (chief complaint)sei zures (chief complaint) DepressionSei zure disorder Sep-0 5 [facility]. [address] [place], [place], [id number], [place]. tel: [phone] Referring Provider: Lela Mojica, [address] [place] [address], [id number]. tel:[phone] [employer]., [address] [place] [address], [id number] , [place] tel: [phone] [facility] examination 5 Reed Katie. [address] [place], [address], [place]. tel: [phone] Referring Provider: Flavio Berg, [address] [place] [address], [id number]. tel:[phone] [facility], [address] [place] [address], [id number] , [place] tel: [phone] [facility] Bipolar 1 disorderPolys ubstance dependence 0 3 5 Nurse Visits. , [place], [address], [place]. OFFICE/OUTPA TIENT VISIT, [employer] [address] [place] [address], [id number] , [place] tel: [phone] [facility] Follow Up of ED (chief complaint) Seizure disorderPolys ubstance dependenceBip olar 1 disorder 5 Galina Vogel. [address] [place] [address], [address], [place]. tel: [phone] Referring Provider: Lela Mojica, [address] [place] [address], [id number]. tel:[phone] [employer] [address] [place] [address], [id number] , [place] tel: [phone] [facility] Seizure disorder 4 Galina Lela. [address] [place] [address], [address], [place]. tel:[phone] OFFICE/OUTPA TIENT VISIT, EST [employer] [address] [place] [address], [id number] , [place] tel: [phone] [facility] Acute Liver Injury (chief complaint) RUQ painLiver injury 0 4 Galina Lela. [address] [place] [address], [address], [place]. tel:[phone] [employer] [address] [place] [address], [id number] , [place] tel: [phone] [facility] examination 4 Bhattachary [employer] Ana. [address] [place], [address], [place]. tel: [phone] [employer] [address] [place] [address], [id number] , [place] tel: [phone] [facility] No Information 4 [employer] Ana. [address] [place], [address], [place]. tel: [phone] PREVENT VISIT NEW AGE 18-39 [employer] [address] [place] [address], [id number] , [place] tel: [phone] [facility] Preventive exam (chief complaint) ROUTINE MEDICAL EXAMSeizure disorderNeed for prophylactic vaccination with unspecified combined vaccine 4 Galina Lela. [address] [place] [address], [address], [place]. tel:[phone] [employer] [address] [place] [address], [id number] , [place] tel: [phone] [facility] No Information 4 [employer]. , [place], [address], [place]. Family History Family Member Type Diagnosis Age At Onset Mother Problem (finding) seizure disorder Brother Problem (finding) Alive and well Sister Problem (finding) Alive and well Father Problem (finding) Alive and well Immunizations Vaccine Date Status Comments COVID-19 PF PFR administered Source: [facility] r Registry Flu Vaccine ([id number]) administered Sour ce: New Immunization Record Flu (age 3 and above) administered Source : New Immunization Record Fluarix (ADULTS 19 - 64 y/o) administered Source: New Immunization Record Tdap administered Source: New Imm unization Record Tdap pending Source: New Imm unization Record Payers Payer name Insurance type Covered democrat ID Authoriza tion(s) [facility] CI [id number] [facility] CI [id number] [facility] [id number] Medicaid [id number] Medicaid [id number] Social History Type Description Quantity Date Captured Comments Alcohol Use Details Unknown Caffeine Use Details Unknown Tobacco Use Status No Information Smoking Status No Information Sex Male Sexual Orientation Choose not to disclose Gender Identity Male Chief Complaint And Reason For Visit No Information Reason For Referral Reason For Referral No Information Plan Of Treatment Date Type Action Status Goal Hepatitis C Screen due Goal Depression Scree lilia. Due on due Goal Depression Scree lilia. Due on due Goal Hepatitis C Screen due Goal Depression Scree lilia. Due on due Goal Hepatitis C Screen due Goal Depression Scree lilia. Due on due Goal Hepatitis C Screen due Goal Hepatitis C Screen due Goal Depression Scree lilia. Due on due Goal Depression Scree lilia. Due on due Goal Hepatitis C Screen due Goal Depression Scree lilia. Due on due Goal Hepatitis C Screen due Goal Depression Scree lilia. Due on due Goal Depression Scree lilia. Due on due Goal Depression Scree lilia. Due on due Goal Depression Scree lilia. Due on due Goal Depression Scree lilia. Due on due Goal Depression Scree lilia. Due on due Goal Depression Scree lilia. Due on due Goal Depression Scree lilia. Due on due Goal Depression Scree lilia. Due on due Goal Depression Scree lilia. Due on due Goal Lifestyle education regardin g diet completed Goal Lifestyle education regardin g diet completed Goal Lifestyle education regardin g diet completed Goal Lifestyle education regardin g diet completed Goal Lifestyle education regardin g diet completed Goal Depression scree lilia. Due on due Goal Suicide risk ass essment. Due on due Goal ECG. Due on due Goal PHQ9. Due on due Goal Potassium. Due on 8 due Goal Creatinine. Due on 18 due Goal Dietary manageme nt education, guidance, and counseling completed Goal Depression scree lilia. Due on due Goal ECG. Due on due Goal Creatinine. Due on 18 due Goal Suicide risk ass essment. Due on due Goal PHQ9. Due on due Goal Potassium. Due on 8 due Goal Influenza vaccine. Due on due Goal PHQ9. Due on due Goal Suicide risk ass essment. Due on due Goal ECG. Due on due Goal Depression scree lilia. Due on due Goal Creatinine. Due on 18 due Goal Influenza vaccine. Due on due Goal Potassium. Due on 8 due Goal ECG. Due on due Goal PHQ9. Due on due Goal Influenza vaccine. Due on due Goal Suicide risk ass essment. Due on due Goal Creatinine. Due on 18 due Goal Potassium. Due on 8 due Goal ECG. Due on due Goal Potassium. Due on 8 due Goal Creatinine. Due on 18 due Goal PHQ9. Due on due Goal Suicide risk ass essment. Due on due Goal Influenza vaccine. Due on due Goal ECG. Due on due Goal Potassium. Due on 7 due Goal Influenza vaccine. Due on due Goal PHQ9. Due on due Goal Suicide risk ass essment. Due on due Goal Creatinine. Due on due Goal Influenza vaccine. Due on due Goal Potassium. Due on due Goal Creatinine. Due on due Goal ECG. Due on due Goal Suicide risk ass essment. Due on due Goal PHQ9. Due on due Goal Influenza vaccine. Due on due Goal ECG. Due on due Goal PHQ9. Due on due Goal Suicide risk ass essment. Due on due Goal Potassium. Due on due Goal Creatinine. Due on due Goal PHQ9. Due on due Goal Suicide risk ass essment. Due on due Goal Influenza vaccine. Due on due Goal Potassium. Due on due Goal Creatinine. Due on due Goal ECG. Due on due Goal ECG. Due on due Goal Suicide risk ass essment. Due on due Goal PHQ9. Due on due Goal Influenza vaccine. Due on due Goal Creatinine. Due on due Goal Potassium. Due on due Goal Potassium. Due on due Goal Influenza vaccine. Due on due Goal Creatinine. Due on due Goal ECG. Due on due Goal Suicide risk ass essment. Due on due Goal PHQ9. Due on due Goal PHQ9. Due on due Goal Potassium. Due on 7 due Goal Influenza vaccine. Due on due Goal ECG. Due on due Goal Suicide risk ass essment. Due on due Goal Creatinine. Due on due Goal ECG. Due on due Goal Influenza vaccine. Due on due Goal Potassium. Due on 7 due Goal PHQ9. Due on due Goal Suicide risk ass essment. Due on due Goal Creatinine. Due on 17 due Goal Suicide risk ass essment. Due on due Goal PHQ9. Due on due Goal HIV screen due Goal Creatinine. Due on 16 due Goal ECG. Due on due Goal Potassium. Due on 6 due Goal Influenza vaccine. Due on due Referral Ordered: Referrals: Neurology. Consult ordered Referral Ordered: Referrals: Pulmonology. Consult ordered Referral Referred To: Physical Therapy Ordered: Referrals: Physical Therapy. Consult ordered Referral Ordered: Referrals: Psychiatry. Location: [facility]. Consult ordered Referral Ordered: Referrals: Cardiology. Diagnostic testing ordered Referral Referred To: Dr. Babatunde Morocho Ordered: Referrals: Psychiatry. Dr. Babatunde Morocho. Evaluate and treat ordered Referral Ordered: Referrals: Pulmonology. Diagnostic testing ordered Referral Referred To: [facility] Ordered: Referrals: [facility] ordered Referral Ordered: Referrals: Neurology. Evaluate and treat ordered Patient Education Low Back Pain: Exercise s completed Unknown Immunization Tdap ordered Future Order: Lab Order HAND RIG HT MIN 3VW (HANDCOMPR), Ordered on: Ordered Future Order: Lab Order CHEST 2 VW ([id number]), Sent on: Sent History Of Present Illness Encounter Date Complaint History Of Prese nt Illness tv This is a phone visit conducted during the COVID 19 Pandemic. Pt agrees to phone visit with Provider. anxiety Depression The patient repo rts functioning as somewhat difficult. The Global Assessment of Functioning Scale (GAF) = 59. The patient presents with difficulty concentrating but denies anxious/fearful thoughts, compulsive thoughts, decreased need for sleep, depressed mood, difficulty falling asleep, easily startled, excessive worry, fatigue, increased energy, paranoia or thoughts of or suicide. Comments: Pt was scheduled for in office hypertension follow-up but states he forgot to call [facility] for a ride so needs to change his visit to TV. Pt has not kept an in office visit with me since 2019 despite persistent urging that he needs to be seen in person. Follow Up of TV This is a phone visit conducted during the COVID 19 Pandemic. Pt agrees to phone visit with Provider, he is at home during this visit. Follow Up of depression Follow Up of Anxiety The patient reports functioning as extremely difficult. The Global Assessment of Functioning Scale (GAF) = 59. The patient presents with anxious/fearful thoughts, compulsive thoughts, decreased need for sleep, depressed mood, difficulty concentrating, difficulty falling asleep, easily startled, excessive worry, fatigue, feelings of guilt, feelings of invulnerability and paranoia but denies thoughts of or suicide. Comments: Pt fol lowing up, he was at [facility] from 10/17/2021- 10/20/2021 for passive SI. He initially went to ED with worsening depression and seizures. 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 Pt was discharged from hospital to crisis stabilization unit at [facility]. He was discharged home on Tuesday10/25/2021. He is back at his Uncle's house. He states he is experiencing some continued depression but no SI. Pt plans to follow-up with [facility] on 11/06/2021 as scheduled. TV This is a phone visit conducted during the COVID Pandemic. Pt agrees to phone visit with Provider. Comments: Pt jael ls because he had a nosebleed yesterday. Bleeding has since stopped. Nose bleeds The patient pres ents with a nosebleed that began 1 day ago. The patient is also experiencing headache. The patient denies ear infections, easy bruising, fever, nasal congestion, nausea, persistent cough, rhinitis or sore throat. Comments: This i s a phone visit conducted during the COVID pandemic. Pt agrees to phone visit with provider.Pt states he fell in the snow two weeks ago and injured his left side, posterior chest. It is more painful when he breathes in. Pt states the pain comes and goes. He took Ibuprofen with good effect. back pain Location of pain is lower back and left flank. Pain is radiated to the left thigh. Symptoms are aggravated by daily activities, descending stairs, lying/rest and walking. Additional information: taking Ibuprofen. Letter for immigration Comments: This i s a phone visit conducted during the COVID pandemic. Pt agrees to phone visit with provider.Pt calls requesting a letter of his medical problems for immigration. He states he has difficulty remembering at times. Follow Up of Hypertension Risk f actors include male gender. Pertinent negatives include chest pain, claudication, confusion, fatigue, headache and nausea. Additional information: pt said that he likes to do the lab to check if everything is ok Comments: This i s a phone visit conducted during the COVID- pandemic. Pt agrees to phone visit with provider.Pt is feeling well, no concerns today. Just requesting routine labs check. Follow Up of Hypertension Comments: This i s a phone visit conducted during the pandemic. Pt agrees to phone visit with provider.Pt scheduled for routine hypertension, pt changed to phone visit as he didn't have a ride. Pt is feeling well, no concerns today. Back pain Onset: 2 months ago. Location of pain is lower back. Symptoms are aggravated by changing positions, daily activities and standing. Anxiety The patient pres ents with difficulty concentrating, excessive worry and fatigue but denies anxious/fearful thoughts, depressed mood, difficulty falling asleep, difficulty staying asleep, feelings of guilt or paranoia. Comments: This i s a phone visit conducted during the . Pt agrees to phone visit with provider.Pt with low back pain on both sides, more to the right side. No radiation. It is worse with prolonged sitting or standing.Pt is using acetaminophen with some effect. Depression Back pain (comments) Pain is wor se with prolonged standing or bending over.He is not currently taking anything for the pain, wanted to check with me first.No acute injury. Follow Up of Anxiety (comments) This is a phone visit conducted during the . Pt agrees to phone visit with provider.Following up with pt on anxiety and depression, he reports feeling well overall. No recent drug or ETOH use. Follow Up of Anxiety The patient reports functioning as very difficult. The Global Assessment of Functioning Scale (GAF) = 59. The patient presents with anxious/fearful thoughts, depressed mood, difficulty concentrating, excessive worry and fatigue but denies compulsive thoughts, decreased need for sleep or difficulty falling asleep. Follow Up of Depression Back pain Onset: 3 months ago. Location of pain is upper back, middle back and lower back. Symptoms are aggravated by ascending stairs, bending, changing positions, daily activities, descending stairs, lying/rest, rolling over in bed and walking. Follow Up of Depression Follow Up of Depress ion (comments) This is a phone visit conducted during the COVID-19 pandemic. Pt agrees to phone visit with provider.Pt with a long history of depression and hospitalizations for this in the past. He was following regularly here from 2018 until Mar 2020 when we could no longer reach him for a time. 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 States he is missing his Depakote. States the only medication he has is Trazodone. Pt states he does not yet have an appt with [facility].He also endorses issues with memory, states his uncle advised him to mention this to me. Follow Up of Anxiety (comments) This is a phone visit conducted during the COVID-19 pandemic. Pt agrees to phone visit with provider.Following up with patient after recent hospitalization at [facility] from 10/02/2020- 10/31/2020 for depression and altered mental status. He states he is feeling better, no longer confused or suicidal. He does report poor sleep.Pt is currently living with his uncle.He states he does not have any medications or psychiatric follow-up scheduled.Pt with a long history of depression and hospitalizations for this in the past. He was following regularly here from 2018 until Mar 2020 when we could no longer reach him for a time. 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 Follow Up of Anxiety The patient reports functioning as somewhat difficult. The Global Assessment of Functioning Scale (GAF) = 59. The patient presents with decreased need for sleep, difficulty concentrating and difficulty falling asleep but denies anxious/fearful thoughts, compulsive thoughts, depressed mood, easily startled, excessive worry, fatigue, feelings of guilt, increased libido, loss of appetite, paranoia or thoughts of or suicide. Depression insomnia The patient pres ents with sleep problems. The patient's symptoms began 3 days ago. The patient has the following risk factors for insomnia: use of alcohol. The patient does not have: smoking. The patient is experiencing difficulty concentrating, difficulty initiating sleep and sleep walking. The patient denies awakening with shortness of breath or depression.Additional information: pt consents to phone visit during id. pt states he has slept in 3 days, tired during the day, this is first time. hand pain Onset: 1 week ag o. Location: right hand. Context: there is an injury. Associated symptoms include throbbing pain. Pertinent negatives include bruising and swelling. Hand Dominance: right. Additional information: house door closed on pt's hand. hand pain (comments) This visit was conducted by telephone due to COVID pandemic w/ pt consentRight hand pain x 1-2 weeksHand got stuck in car doorNow has pain on right hand on the pinky-finger side (no finger pain)Denies bruising, redness, swellingDenies any cuts or woundsNo purulent dischargeNo numbness or tinglingHas been taking OTC medicines for pain COVID (comments) This is a phone visit conducted during the COVID- pandemic. Pt agrees to phone visit with provider.Start: 10:03End: 10:09Pt calls for COVID follow-up, he is feeling well. States he is no longer having symptoms. He tested positive on 12/10/2019. COVID COVID-19 COVID-19 (comments) This is a ph one visit conducted during the COVID- pandemic. Pt agrees to phone visit with provider.Start: 10:51End: 10:57Pt with recent + COVID-19 test on 12/10/2019. He was experiencing some chest pain and tightness. Today, he reports he is feeling much improved. Chest pain/ cough (comments) Thi s is a phone visit conducted during the COVID-19 pandemic. Pt agrees to phone visit with provider.Start: 18:17End: 18:23Pt calls with chest pain that started this morning and a cough. The pain is mostly right sided and constant. He denies any dyspnea, fever, body aches, or sore throat. He is concerned about possible COVID-19 exposure at a family democrat this week but did not hear of any confirmed cases. Chest pain/ cough Thoracic back pain Thoracic back pain (comments) Th is is a phone visit conducted during the COVID-19 pandemic. Pt agrees to phone visit with provider.Start: 16:14End: 16:22Pt calls with a few months of intermittent thoracic back pain which radiates down his bilateral arms. The pain this morning was 8/10 and he took 400mg of Ibuprofen and pain decreased to 5/10. Pt denies any known mechanism of injury. He denies every experiencing pain like this in the past. Asthma Asthma (comments) Pt reports a h istory of asthma since childhood. He states he uses albuterol two times every night but feels it is not as effective as it once was. Has noticed an increase in shortness of breath. Follow Up of Depression Rash Rash (comments) Pt endorses some itchy rash on his arms and hands, states he had this before and hydrocortisone worked well for him. Follow Up of Depress ion (comments) This is a phone visit conducted during the COVID-19 pandemic.Start: 10:48End: 10:54Called pt for routine depression follow-up. He states he is doing generally well, he is still living with his uncle and has not had any alcohol since our last visit in July. Pt continues to follow with [facility] for counseling. He was referred to [facility] in July but states he did not make an appt with them. Follow Up of ER/Seizure Follow Up of ER/Seiz ure (comments) Pt presents for ED follow-up. He was seen on 06/08/19 for acute alcohol intoxication and seizure. He states he was out with his friends and he knows it was nor a good situation for him. He is now living with his uncle and feeling safer. He has not has any seizures/ no alcohol since that day. depression depression (comments) Pt present s for routine depression follow-up. States he was seen in the emergency room for chest pain yesterday.He has been having intermittent left sided chest pain and palpitations for the past one week. Pt is inconsistent in describing location of the pain, initially says right side but then says left side, and also midsternal. Pt's symptoms of chest pain and palpitations occur intermittently, they do not occur together. Each lasts for less than 10 minutes and subsides. No associated sweating or shortness of breath. The initial incident occurred when pt was working but he states it occurs at rest as well. Anxiety (comments) Pt presents f or depression and anxiety. He states he feels stable overall but his symptoms wax and wane. He is not working often, sometimes picks up jobs here and there. He states he is not keeping busy, mostly stays in the house. He is taking his medications as prescribed. He states he does not have an appt with psych or neuro. Anxiety Follow Up of Anxiety Follow Up of Anxiety (comments) Pt presents for follow-up of bipolar depression/ seizure disorder. He states he did not go to see neurology in [place] because it is far and he has a lot going on at home. He states he knows he needs to call [facility] once he reschedules his appt.Pt states he tried to make an appt with his psychiatrist, Dr. Morocho, but was told Dr. Morocho won't see him anymore. Follow Up of Anxiety (comments) Pt presents for depression and anxiety follow-up. He was hospitalized for inpatient psychiatry in September. He has not followed up since that time but states he plans on seeing Dr Morocho, psychiatry for ECT treatments. He states since his hospitalization he has had 2 seizures. Follow Up of Anxiety The patient reports functioning as somewhat difficult. The Global Assessment of Functioning Scale (GAF) = 59. The patient presents with decreased need for sleep, depressed mood, difficulty concentrating, excessive worry and fatigue but denies compulsive thoughts. Follow Up of MDD The symptoms ar e reported as being mild. Pt is ran out of meds.pt has an appt w/ neurologist on 04/04 nose bleeds The patient pres ents with a nosebleed that began 1 week ago. The patient has had , with the date of the last nosebleed being 07/20/2017. The bleeding appears to be from left nostril. The patient denies fever, headache, nasal congestion, nausea or sore throat. Additional information: pt states he hurt his nose at work since then when he cleans his nose theres blood. Follow Up of Bipolar disorder Follow Up of Bipolar disorder (comments) feeling depressed, denies SI/HI. on seroquel 300mg QHS, not taking daytime doses.gets ECT but does not have psych provider for meds/therapy. also reports feeling fatigued and sick the past 2 weeks. Follow Up of seizure Follow Up of Bipolar disorder Th e patient presents with depressed mood and diminished interest or pleasure but denies difficulty concentrating, fatigue, feelings of guilt, loss of appetite, restlessness or thoughts of or suicide. Follow Up of epilepsy (comments) patient has been unable to see neuro, missed one appt and then that group stopped taking his insurance, has outstanding bill at another facility so unable to be seen there, and he has not heard back from [facility] neuro clinic to schedule. [facility] Jerome has been assisting patient with this issue. Follow Up of epilepsy The proble m is recurrent. Medication(s) used: with good results. Follow Up of epilepsia (comments ) pt denies any seizure activity. states he did not make it to his neuro appt d/t not having a ride. he did not yet reschedule. Follow Up of epilepsia Follow Up of ER (comments) was s een in ED for seizure activity in october, has had no further seizures since. has neuro consult this month.pt received ECT weekly for his depression with good effect.takes all meds as directed. Follow Up of ER Follow Up of Shortne ss of breath (comments) pt has PFTs scheduled end of this month. uses inhaler occassionally but does endorse continued intermittent dyspnea. Follow Up of Shortness of breath Episodes occur intermittently. Follow Up of Hypertension Risk f actors include male gender. Pertinent negatives include chest pain and headache. Follow Up of B/L arm swelling pt reports resolution of sx since last visit. Preventive exam (comments) PMH:b ipolar d/o: stable on seroquel however reports ran out of meds yesterday. sees khushi ann in regularly. seizure d/o: stable on depakote, has not had a seizure in many years, does not have a neurologist at this time.elevated BP: never medicated for HTN, however has multiple elevated BPs in office, including today. Preventive exam Men's preventive visit. Follow Up of Depression This is a follow up visit. There is improvement of initial symptoms. The patient reports functioning as not difficult at all. The Global Assessment of Functioning Scale (GAF) = 59. The patient presents with depressed mood and diminished interest or pleasure but denies difficulty concentrating, difficulty falling asleep, feelings of guilt, loss of appetite, restlessness or thoughts of or suicide. The patient's risk factors include history of depression and history of suicidal attempts. The Follow Up of Depression is aggravated by conflict or stress. The patient's relieving factors are medication. The patient denies any chronic pain, headache, irritability, nausea, sweating, trembling, urinary frequency, vomiting and weight gain. Additional information: Pt. says he has not been using Zoloft d/t dizziness SE. depression There is improve ment of initial symptoms. The patient reports functioning as very difficult. The patient presents with depressed mood, difficulty falling asleep, diminished interest or pleasure and fatigue but denies feelings of guilt, restlessness or thoughts of or suicide. seizures Additional infor trevor: Pt says that that no longer on the Keppra on the Divalproex for seizures. depression (comments) Needs refi ll of medications---Ran out of ALL meds for the depression and the seizures---Pt says that does not have a Psychiatrist though according to chart pt was in hospital 12/2014 for Suicide attempt. denies feeling osf suicidal Follow Up of ED Pt. was at [facility] from 09/12/14-10/31/14 d/c to [facility] in [place], [place] after a suicide attempt. Attd. LYNNE: Dr. Mcdonald [phone]. was dx with bipolar, polysubstance dependence, seizure disorder. He does not have outpt. psychiatry appt. for medication mgt. He is on 9 different medications. Acute Liver Injury Pt. was hospi talized at [facility] from 05/06/14-05/08/14 due to abd. pain and acute liver injury s/p ETOH and cocaine abuse. H ehas since stopped all ETOHand drugs and is in an outpt. rehab program. He has a GI appt. with Dr. Varma on 06/04/14 at 9am. Preventive exam Men's preventive visit. PMH: seizure disorder- has appt. next mo. On Keppra 500 BID Functional Status Date Functional Assessmen t No Information Instructions Date Instruction Additional Infor trevor Continue QVar and albuterol Rela maureen to Mild intermittent asthma without complication Follow-up with Dr Nel serrano at [facility] on 12/18/2021 as scheduled.Continue Fluoxetine, Bupropion, and Seroquel Related to Severe episode of recurrent major depressive disorder, without psychotic features Continue Lisinopril 10mg Pt persistently missing in office visits over the past 2 years and changing to phone visits.Nurse visit scheduled for BP check when pt is seen by his counselor on Tuesday. Related to Essential hypertension Follow-up with Herlinda garcia on 11/06/2021 as scheduled. Related to Severe episode of recurrent major depressive disorder, without psychotic features Continue Lisinopril 10mg Follow-up in office, pt has appt scheduled for December. Related to Essential hypertension Continue QVar and albuterol Rela maureen to Mild intermittent asthma without complication - Nasal saline - Adv ised pt to consider humidifier if needed for his room Related to Epistaxis - Continue Ibuprofen as needed- Pain should continue to improve with time. Related to Posterior chest pain Continue Lisinopril 10mg Follow-up in office, please call to schedule when you are able to get a ride Related to Essential hypertension - Follow-up with christopher barron, pt has phone number to call and schedule Related to Pseudoseizure Continue Trazodone 1 00mg.Pt stopped Venlafaxine due to reports of feeling groggy.Pt is interested in re-establishing counseling with Flavio. Related to Major depressive disorder, single episode, in partial remission Continue QVar and albuterol Rela maureen to Mild intermittent asthma without complication - Follow-up with christopher barron, pt has phone number to call and schedule Related to Pseudoseizure Continue QVar and albuterol Rela maureen to Mild intermittent asthma without complication Continue following w ith [facility]- pt was seeing Dr Krishnan but will need new psychiatrist as he left.Venlafaxine 150mg daily and Trazodone 100mg nightly per psychiatry, refills sent today while pt is waiting on new psychiatrist. Advised pt to discuss with his [facility] mapping technician what the plan is for new prescriber. Related to Major depressive disorder, single episode, in partial remission Continue Lisinopril 10mg Follow-up in office, please call to schedule when you are able to get a ride Related to Essential hypertension - Follow-up with christopher barron, pt has phone number to call and schedule Related to Pseudoseizure Continue Lisinopril 10mg Follow-up in office, please call to schedule when you are able to get a ride Related to Essential hypertension Continue following w ith [facility]- pt was seeing Dr Krishnan but will need new psychiatrist as he left.Venlafaxine 150mg daily and Trazodone 100mg nightly per psychiatry, refills sent today while pt is waiting on new psychiatrist. Advised pt to discuss with his [facility] mapping technician what the plan is for new prescriber. Related to Major depressive disorder, single episode, in partial remission Continue QVar and albuterol Rela maureen to Mild intermittent asthma without complication Continue QVar and albuterol Rela maureen to Mild intermittent asthma without complication - Follow-up with christopher barron, pt has phone number to call and schedule Related to Pseudoseizure Continue following w ith [facility]- pt was seeing Dr Krishnan but will need new psychiatrist as he is leaving.Venlafaxine 150mg daily and Trazodone 100mg nightly per psychiatry. Related to Major depressive disorder, single episode, in partial remission Continue Lisinopril 10mg Follow-up in office, please call to schedule when you are able to get a ride Related to Essential hypertension - Follow-up with christopher barron tomorrow as scheduled Related to Pseudoseizure Acetaminophen as nee dedAdd on Ibuprofen as neededContinue exercises to try at homePt refuses PT referral today Related to Back pain, unspecified back location, unspecified back pain laterality, unspecified chronicity Continue Lisinopril 10mg Follow-up in June in office as scheduled Related to Essential hypertension Consider PFT's once pt's mood is stabilized.Will discuss with pt at next follow-up. Related to Mild intermittent asthma without complication Continue following w ith [facility]- pt was seeing Dr Krishnan but will need new psychiatrist as he is leaving.Venlafaxine 150mg daily and Trazodone 100mg nightly per psychiatry. Related to Major depressive disorder, single episode, in partial remission Acetaminophen as nee dedWill mail pt exercises to try at homeFollow-up TV in 4 weeks to see how pt is feeling. Related to Back pain, unspecified back location, unspecified back pain laterality, unspecified chronicity Continue following w ith [facility]- pt was seeing Dr Krishnan but will need new psychiatrist as he is leaving.Venlafaxine 150mg daily and Trazodone 100mg nightly per psychiatry. Related to Major depressive disorder, single episode, in partial remission Consider PFT's once pt's mood is stabilized.Will discuss with pt at next follow-up. Related to Mild intermittent asthma without complication Continue Lisinopril 10mg Pt will need in office visit for BP check Related to Essential hypertension Consider PFT's once pt's mood is stabilized. Related to Mild intermittent asthma without complication Continue Trazodone 1 00mg nightlyContinue Venlafaxine 75mg daily.Advised pt to call [facility] for intake.Continue following with here. Related to Episode of recurrent major depressive disorder, unspecified depression episode severity Continue Lisinopril 10mg Related to Essential hypertension Continue Lisinopril 10mg Related to Essential hypertension Keppra and Depakote stopped by inpatient neurology as they were likely contributing to confusion. Related to Pseudoseizure Pt possibly appropri ate for [facility], referral to .Trazodone and Venlafaxine refilled today. Will clarify other medications with discharging MD prior to refill. Related to Episode of recurrent major depressive disorder, unspecified depression episode severity Continue ICS and alb uterol.Consider PFT's once pt's mood is stabilized. Related to Mild intermittent asthma without complication Pt has completed 10 day self-isolation and is feeling improved.He is not currently working.Advised pt he is fine to end isolation at this point, no follow-up testing needed. Ok to assume you are no longer infectious. Related to COVID-19 virus infection Advised pt to contin ue his self-isolation until 12/20/2019 unless you continue with fevers or are not feeling better at that time.Pt verbalizes understanding. Related to COVID-19 virus infection Will swab for SARS-C OV-2.COVID-19 is a viral illness, there is no treatment recommended for mild-moderate disease. Your body will clear the illness with time.Please self-isolate for at least 10 days after developing symptoms and until you are without fever and symptoms are improving for 3 days.Self-isolate means stay home, do no go out for any reason unless you need to seek emergency medical care. Please call us if you have worsening shortness of breath or if you are showing signs of severe dehydration such as decreased urine output.Drink plenty of fluids. You can use OTC medications such as acetaminophen to help relieve your symptoms. Related to Cough Ibuprofen 800mg thre e times a day as needed- take with food. Will refer pt to PT. Related to Chronic midline thoracic back pain Start pt on QVar twi ce daily- advised pt to rinse mouth after use.Continue albuterol as needed.Will order pt for PFTs to confirm asthma dx. Related to Shortness of breath Follow-up in January for BP check. Related to Essential hypertension Hydrocortisone as needed Related to Rash of hands Continue current med ication regimen.Referral to psychiatry pending. Related to Major depressive disorder, recurrent, in partial remission Continue current medication jen men. Related to History of seizures Referral to psychiat ry.Will continue current medication regimen in the mean time.Continue following with counseling here. Related to Moderate episode of recurrent major depressive disorder Giving encouragement to exercise Related to Body mass index (BMI) 31.0-31.9, adult Lifestyle education regarding di et Related to Body mass index (BMI) 31.0-31.9, adult Holter monitor Related to Palpi tations Check labs.Will plac e order for Holter Monitor to evaluate palpitations. Related to Left-sided chest pain Check labs today, CB C and BMP were done in ED yesterday. Continue current medication regimen, pt to follow-up with neuropsychiatrist. Related to Recurrent major depressive disorder, in remission BP above goal of <13 0/90 today.Continue HCTZ at this time, can consider increasing dosage if BP remains elevated.Follow-up in 3 months. Related to Essential hypertension Giving encouragement to exercise Related to Body mass index (BMI) 31.0-31.9, adult Lifestyle education regarding di et Related to Body mass index (BMI) 31.0-31.9, adult Check UA and CXR.If all normal work-up, will refer pt to hematology. Related to Polycythemia Stable on current re gimen.Follow-up with neurology Related to Seizures Continue current med ication regimen.Follow-up with Flavio as scheduled tomorrow.Follow-up in 2 months Related to Major depressive disorder, recurrent, in partial remission Giving encouragement to exercise Related to Body mass index (BMI) 31.0-31.9, adult Lifestyle education regarding di et Related to Body mass index (BMI) 31.0-31.9, adult Continue current med ication.Follow-up with psychiatry, pt to call to Dr. Morocho to schedule appt as he was seen by him at the [facility] partial program. Pt will need fasting lipid profile this year and evaluation for EPS/ tardive dyskinesia at next visit.Follow-up monthly until pt establishes with neuro and psych. Related to Bipolar 1 disorder Continue current man agement.MUST reschedule neurology appt.Check CBC, CMP, valproic acid level today. Related to Epilepsy, unspecified, not intractable, without status epilepticus Giving encouragement to exercise Related to Body mass index (BMI) 31.0-31.9, adult Lifestyle education regarding di et Related to Body mass index (BMI) 31.0-31.9, adult Divalproex refilled for one month.Referral to Neurology for further evaluation. Related to Seizures Medications refilled for one month.Will place referral to Dr. Morocho, psychiatry for future management of pt's depression. Warm hand-off with today, pt to follow-up with Flavio. Related to Moderate episode of recurrent major depressive disorder Giving encouragement to exercise Related to Body mass index (BMI) 30.0-30.9, adult Lifestyle education regarding di et Related to Body mass index (BMI) 30.0-30.9, adult Return in one to two months for weight and blood-pressure checks Related to Essential hypertension See Dr. Morocho for re fills on quetiapine and trazodone Related to Major depressive disorder, recurrent, in partial remission See Dr. Garcia for y our divalproex refills Related to Epilepsy, unspecified, not intractable, without status epilepticus Keep taking albutero l when you need it, let us know if you're using it more than twice a week or twice a month at bedtime Related to Mild intermittent asthma without complication Giving encouragement to exercise Related to Body mass index (BMI) 32.0-32.9, adult Dietary management e ducation, guidance, and counseling Related to Body mass index (BMI) 32.0-32.9, adult Goal: Increase activ ity/exercise Goal: Maintain healthy diet Related to Obesity, unspecified DO NOT MISS NEURO APPOINTMENT. R elated to Epilepsy, unspecified, not intractable, with status epilepticus ipratroprium 2-3 nathan es daily.saline nasal spray twice daily.mucinex for congestion.drink plenty of fluids. The patient was advised to call the office if symptoms worsen or do not improve. Related to Acute non-recurrent ethmoidal sinusitis Dietary needs education Related to Obesity, unspecified increase exercise to at least 30 minutes daily --> biking, walking, swimming, yoga.decrease calories, try snacking on carrot sticks or celery.shop the perimeter of the grocery store.If it grows or had a mother, its ok to eat. If it has a bar code on it, think twice. Related to Obesity, unspecified BP at goal.continue hctz. Relate d to Essential hypertension labs today. Related to Fatig ue, unspecified type continue divalproex twice daily.neuro consult pending. Related to Epilepsy, unspecified, not intractable, without status epilepticus continue quetiapine 300mg at bedtime.can take 50mg QAM and afternoon as needed.referral to [facility]. Related to Bipolar disorder, unspecified Dietary needs education Related to Obesity, unspecified Go to your Neurologi st appointment in two daysContinue taking all medications as prescribedF/U in 3 months, sooner if needed Related to Epilepsy, unspecified, not intractable, without status epilepticus Continue to meet wit h your therapistContinue to f/u with your ECTF/U here in 3 months, sooner if neededIf you are ever in a crisis situation where you feel unsafe call 911 or go to the nearest emergency room Related to Bipolar disorder, unspecified Continue to increase exercise and to make good food choicesF/U in 3 months, sooner if needed Related to Obesity, unspecified Dietary needs education Related to Obesity, unspecified continue current med ications.continue ECT with Dr. Morocho.let me know if you are interested in psychotherapy at any point. Related to Bipolar disorder, unspecified continue current med ications.warm handoff to [facility] Jerome to assist in getting patient in with new neurology.no recent seizure d/o. Related to Epilepsy, unspecified, not intractable, without status epilepticus continue albuterol.w e will get the PFT results and make adjustments accordingly. Related to Shortness of breath continue trazodone a nd quetiapine.continue f/u with provider for ECT. Related to Bipolar disorder, unspecified continue divaloprex. call [facility] neurology today to reschedule --> [phone]. Related to Epilepsy, unspecified, not intractable, without status epilepticus continue quetiapine and trazadone.continue ECT as you are reporting continued positive effect from this treatment. Related to Bipolar disorder, unspecified continue divaloprex TID.consult with neuro this month.make sure to keep this appointment.report any further seizure activity. 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 R elated to Rash of hands call to make neuro a ppt:[facility] [id number] [facility] [id number] current meds. Related to Epilepsy, unspecified, not intractable, without status epilepticus keep your appt for t he breathing test on the .we will likely add new inhalers once results received. Related to Shortness of breath BP at goal.continue hctz. Relate d to Essential hypertension i have ordered consu lt for breathing test.do not take your albuterol that day.avoid triggers such as tobacco smoke. Related to Shortness of breath neuro consult.contin ue depakote.would like neuro to assess your medication regimen since you have had 2 seizures in past month. Related to Epilepsy, unspecified, not intractable, without status epilepticus pt reports symptom h as resolved.if this happens again, please let me know so we can investigate further. Related to Arm swelling continue seroquel.co ntinue f/u with specialists. Related to Bipolar disorder, unspecified Dietary needs education Related to Obesity, unspecified Related to Major depressive disorder, recurrent, in partial remission Related to Major depressive disorder, recurrent, in partial remission albuterol inhaler or dered.? 2/2 hx childhood asthma vs anxiety.EKG grossly normal.will recheck symptoms at follow up 1 month --> consider stress/echo Related to Tightness in chest ? etiology.will rech octaviano symptoms at follow up.consider vena cava syndrome given b/l presentation. Related to Arm swelling start new medication today. Maintain a low-sodium diet (less than 2 grams per day).will recheck at follow up in 1 month. Related to Essential hypertension continue f/u with ivon ann.continue seroquel --> refilled today. Related to Bipolar disorder, unspecified continue depakote --> refilled t paula. Related to Epilepsy, unspecified, not intractable, without status epilepticus routine labs ordered .utd with flu vaccine. Related to Encounter for general adult medical examination without abnormal findings Related to Major depressive disorder, recurrent, in partial remission Related to Major depressive disorder, recurrent, in partial remission Related to Major depressive disorder, recurrent, in partial remission Related to Major depressive disorder, recurrent, in partial remission meds refilledPt to f/u with PCP 2 weeks Related to Seizure disorder Encouraged pt to f/u with the Psychiatrist---pt brought in multiple meds and I only filled the ones that were filled at Pharmacy [facility] pt signed the from to get the notes from [facility] Related to Depression Assessments Type Assessment Date No Information Patient Care Teams Name Effective Dates (start - stop) Status Members No Information
--- NOTE | 2024-07-21 10:52 | PC.NURSE ---
This rN spoke with nursing at [facility] and meds given to this patient prior to his arrival to the ER. Keppra 1000mg, Citalopram 10mg, Depakote 750mg given PO Provider Promise Grant was made aware.
[2024-07-21 11:12] LABS: MANUAL DIFF FLAG NO
[2024-07-21 11:16] LABS: Basophils Percent Auto 0.2 % (0-2); Eosinophils Percent Auto 0.4 % (0-4); Hematocrit 49.5 % (42.0-52.0); Hemoglobin 15.9 g/dl (14.0-18.0); Imm Gran Abs Auto 0.02 X10*3/uL (0.00-0.03); Imm Gran Pct Auto 0.4 % (0.0-0.4); Lymphocytes Absolute Auto 1.8 X10*3/uL (1.2-4.9); Mean Corpuscular HGB Conc 32.1 g/dl (31.0-36.0); Mean Corpuscular Volume 90.2 fL (80.0-98.0); Mean Platelet Volume 9.1 fL (9.4-12.4); Monocytes Absolute Auto 0.4 X10*3/uL (0.1-1.2); Neutrophils Absolute Auto 3.3 x10*3/uL (2.0-8.3); Platelet Count 182 X10*3/uL (160-400); Red Blood Count 5.49 X10*6/uL (4.60-5.80); White Blood Count 5.6 X10*3/uL (4.8-10.8)
[2024-07-21 11:31] LABS: Ethanol 10 mg/dL
[2024-07-21 11:33] LABS: Valproate 96.9 mcg/mL (50.0-100.0)
[2024-07-21 11:34] LABS: Alanine Aminotransferase 89 U/L (0-40); Albumin Level 4.4 g/dL (3.5-5.0); Alkaline Phosphatase 70 U/L (39-117); Anion Gap 11 (12-20); Aspartate Amino Transferase 71 U/L (5-37); Bilirubin Direct 0.2 mg/dL (0.0-0.5); Bilirubin Total 0.4 mg/dL (0.0-1.0); Blood Urea Nitrogen 9 mg/dL (9-16); Calcium 9.3 mg/dL (8.4-10.2); Carbon Dioxide 35 mmol/L (22-29); Chloride 102 mmol/L (96-108); Creatinine Clr Calc Pharmacy 134.5; Estimated Glomerular Filt Rate > 60; Glucose Random 133 mg/dL (60-115); Sodium 144 mmol/L (135-145); Total Protein 8.1 g/dL (6.5-8.0)
[2024-07-21 13:47] VITALS: BP 146/81; PULSE 88; RESP 18; TEMP 36.7; O2SAT 98
[2024-07-21 13:51] VITALS: BP 148/61; PULSE 88; RESP 18; TEMP 36.7; O2SAT 98
[2024-07-24 22:48] LABS: Levetiracetam Keppra 28.6 mcg/mL (6.0-46.0)
== END 2024-07-21 13:53 | disposition skilled nursing facility (03) ==
PROVIDERS: Physician Assistant Medical; Emergency Provider Emergency Medicine; PCP Hospitalist
DX: R56.9 Unspecified convulsions (principal); Z79.01 Long term (current) use of anticoagulants; Z79.899 Other long term (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; Z51.81 Encounter for therapeutic drug level monitoring
CPT/HCPCS: 36415; 80048; 80076; 80164; 80177; 80307; 81001; 81003; 83735; 85025; 99283; 99284

== ENCOUNTER 2024-08-01 13:29 | Outpatient (REF) | payer MEDICAID, SELFPAY ==
--- NOTE | 2024-08-01 13:57 | PFT_ITS ---
Flows: FEV1: 32 % of predicted at 1.17 L FVC: 34 % of predicted at 1.50 L FEV1/FVC: 78 % Bronchodilator response: Present in small to medium airways only Volumes: Total lung capacity: 39 % of predicted at 2.37 L Residual volume: 65 % of predicted at 0.86 L Slow vital capacity: 32 % of predicted at 1.52 L Expiratory reserve volume: 17 % of predicted at 0.22 L Diffusion capacity: Moderately decreased, corrects to normal after adjustment for alveolar ventilation. Impression: Severe restrictive ventilatory defect with bronchodilator response present in small to medium airways only. Decreased expiratory reserve volume suggests extrathoracic restriction likely secondary to abdominal obesity. Restrictive ventilatory defect together with decreased diffusion capacity suggests pulmonary parenchymal disease. Clinical correlation is advised. MTDD
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
--- OUTSIDE RECORDS SUMMARY | 2024-08-01 15:44 | XMS_ITS | Continuity of Care Document ---
Author Organization [facility] Address [address] [place] [address] Phone Care Team Providers Care Ems Manager Name Role Phone Provider, Conversion Unavailable Unavailable Advance Directives Directive Yes / No Effective Date File Name No Information Encounters Encounter Description Practice Location Reason(s) For Visit Diagnoses Date Provider Providers Copied on Encounter [facility], [address] [place] [address], [id number], [place] tel:[phone] [facility]/EP No Information Provider Conversion . [...]
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
--- OUTSIDE RECORDS SUMMARY | 2024-08-01 15:44 | XMS_ITS | Clinical Summary ---
Author Organization [facility] [address] [facility] Address [address] [place] [address] Phone Care Team Providers Care Studio Potter Name Role Phone Antonio Mcmillan DO Primary Care Provider [phone] Allergies No known active allergies Medications acetaminophen (TYLENOL) 325 mg tablet Take 2 tablets (650 mg total) by mouth every 6 (six) hours as needed for pain. Active albuterol sulfate 90 mcg/actuation HFA aerosol inhaler Inhale 2 puffs into the lungs every 6 (six) hours as needed for wheezing or shortness of breath. Active bisacodyL (DULCOLAX, BISACODYL,) [address] 1 suppository (10 mg total) rectally daily as needed for constipation (if senna is ineffective). Active citalopram (CELEXA) 10 mg tablet Take 1 tablet (10 mg total) by mouth daily. Active cyclobenzaprine (FLEXERIL) 10 mg tablet Take 1 tablet (10 mg total) by mouth 3 (three) times daily as needed (pain). Active diphenhydrAMINE (BENADRYL) 25 mg capsule Take 1 capsule (25 mg total) by mouth daily as needed (insomnia). Active divalproex (DEPAKOTE DR) 250 mg delayed release tablet Take 1 tablet (250 mg total) by mouth 2 (two) times daily. Active divalproex (DEPAKOTE DR) 500 mg delayed release tablet Take 1 tablet (500 mg total) by mouth 2 (two) times daily. Active mometasone-form oterol (DULERA) 100-5 mcg/actuation HFA aerosol inhaler Inhale 2 puffs into the lungs daily. Active sodium phosphates (FLEET ENEMA) 19-7 gram/[address] 1 enema rectally daily as needed (constipation). Only if bisacodyl suppository if ineffective Active guaiFENesin (ROBITUSSIN) 100 mg/5 mL Liqd Take 15 mLs by mouth every 6 (six) hours as needed for cough. Active hydrOXYzine (VISTARIL) 50 mg/mL injection Inject 1 mL (50 mg total) into the vein every 4 (four) hours as needed (seizures). Active levETIRAcetam (KEPPRA) 1000 mg immediate release tablet Take 1 tablet (1,000 mg total) by mouth 2 (two) times daily. Active multivitamin tablet Take 1 tablet by mouth daily. Active melatonin 5 mg tablet Take 1 tablet (5 mg total) by mouth at bedtime. Active OLANZapine (ZYPREXA) 5 mg tablet Take 1 tablet (5 mg total) by mouth at bedtime. Active polyvinyl alcohol (LIQUITEARS) 1.4 % ophthalmic solution Place 1 drop into both eyes every 6 (six) hours as needed for dry eyes. Active senna (SENOKOT) 8.6 mg tablet Take 1 tablet (8.6 mg total) by mouth daily as needed for constipation. Active ondansetron (ZOFRAN) 4 mg tablet Take 1 tablet (4 mg total) by mouth every 8 (eight) hours as needed for nausea. Active rosuvastatin (CRESTOR) 10 mg tablet Take 1 tablet (10 mg total) by mouth daily. 30 tablet Active Active Problems Problem Noted Date Diagnosed Date Seizure 02/17/2024 Social History Tobacco Use Types Packs/Day Years Used Date Smoking Tobacco: Never Assessed [facility] Utilities Answer Date Recorded In the past 12 months has th e [employer], gas, oil, or water [employer] threatened to shut off services in your home? No 02/18/2024 PHQ-2 Answer Date Recorded PHQ-2 Total Score 0 02/17/2024 Hunger Vital Sign Answer Date Recorded Within the past 12 months, y ou worried that your food would run out before you got the money to buy more. Never true 02/18/20 24 Within the past 12 months, t he food you bought just didn't last and you didn't have money to get more. Never true 02/18/2024 PRAPARE - Transportation Answer Date Re corded In the past 12 months, has l ack of transportation kept you from medical appointments or from getting medications? No 02/01 In the past 12 months, has l ack of transportation kept you from meetings, work, or from getting things needed for daily living? No 02/18/2024 Housing Stability Answer Date Recorded What is your living situation today? I have a [facility] place to live 02/18/2024 Housing Stability Not on file 02/18/2024 Interpersonal Safety Answer Date Record ed Is there anyone in your life that is hurting or threatening you in anyway? no 02/17/2024 Physical Indicators of Abuse No evidence of phys ical abuse 02/17/2024 Sex and Gender Information Value Date Recorded Sex Assigned at Male 02/17/2024 2:48 PM EDT Legal Sex Male 2:34 PM EDT Gender Identity Male 02/17/2024 2:48 PM EDT Sexual Orientation Straight 02/17/2024 2: 48 PM EDT Last Filed Vital Signs Vital Sign Reading Time Taken Comments Blood Pressure 113/73 02/21/2024 7:13 AM EDT Pulse 80 02/21/2024 7:13 AM EDT Temperature 36.7 ??C (98.1 ??F) 02/21/2024 7:13 AM ED T Respiratory Rate 19 02/21/2024 7:13 AM EDT Oxygen Saturation 96% 02/21/2024 7:13 AM EDT Inhaled Oxygen Concentration - - Weight 95.7 kg (211 lb) 02/17/2024 8:00 PM EDT Height 165.1 cm (5' 5 ) 02/17/2024 8:00 PM EDT Body Mass Index 35.11 02/17/2024 8:00 PM EDT Plan of Treatment Health Maintenance Due Date Last Done Comments HIV screening 2000 Hepatitis C screening 2005 Tetanus adult (Td q 10,TDAP once) 2007 Influenza vaccine 02/02/2024 05/03/2022 Covid-19 vaccine series ( season) 2024 06/11/2022, 02/25/2022, 06/30/2021, Additional history exists RSV Discussion (1 - 1-dose 75+ series) 2062 Meningococcal Vaccine Aged Out No donna farzaneh eligible based on patient's age to complete this topic Pneumococcal Vaccine Aged Out No long er eligible based on patient's age to complete this topic Insurance [place] Advance Directives * Full Code (Latest Code Status on File) Date Activated Date Inactivated Comments 02/17/2024 5:24 PM 02/21/2024 2:32 PM Question Answer Comments With Whom was the Code Status Discussed? Patient Care Teams Studio Potter Relationship Specialty Start Date End Date Antonio Mcmillan DO [address] [place] [address] PCP - General Internal Medicine 02/17/24
--- OUTSIDE RECORDS SUMMARY | 2024-08-01 15:44 | XMS_ITS | Clinical Summary ---
Author Organization 299 [facility] Address [address] [place] [address] Phone Care Team Providers Care Roller Painter Name Role Phone Unavailable Primary Care Provider Unavailabl e Encounters Date Type Department Care Team Description 06/05/2024 Lab Requisition [facility] - Main Lab [address] [facility] [place] [address] Antonio Mcmillan MD Diffuse traumatic brain injury with loss of consciousness of unspecified duration, sequela (CMS/HCC) from Last 3 Months Social History Tobacco Use Types Packs/Day Years Used Date Smoking Tobacco: Never Assessed Sex and Gender Information Value Date Recorded Sex Assigned at Not on file Gender Identity Not on file Sexual Orientation Not on file Plan of Treatment Health Maintenance Due Date Last Done Comments DTaP,Tdap,and Td Vaccines (1 - Tdap) 2006 Hepatitis B Vaccines (1 of 3 - 19+ 3-dose series) 2006 Cholesterol Screening (Lipid Panel) 07/29/2023 HIV Screening 07/29/2023 Hepatitis C Screening 07/29/2023 Social Influencers of Health Screening 07/29/2023 COVID-19 Vaccine ( - 2023-2 5 season) 2024 Influenza Vaccine (#1) 2024 Depression Screening 02/16/2025 02/17/2024 HIB Vaccines Aged Out No longer eligi ble based on patient's age to complete this topic HPV Vaccines Aged Out No longer eligi ble based on patient's age to complete this topic Hepatitis A Vaccines Aged Out No long er eligible based on patient's age to complete this topic IPV Vaccines Aged Out No longer eligi ble based on patient's age to complete this topic MMR Vaccines Aged Out No longer eligi ble based on patient's age to complete this topic Meningococcal ACWY Vaccine Aged Out N o longer eligible based on patient's age to complete this topic Pneumococcal Vaccine: Pediat rics (0 to 5 Years) and At-Risk Patients (6 to 64 Years) Aged Out No longer eligi ble based on patient's age to complete this topic RSV Immunization Patients Un rashaun 20 months Aged Out No longer eligible b ased on patient's age to complete this topic Varicella Vaccines Aged Out No longer eligible based on patient's age to complete this topic Procedures Procedure Name Priority Date/Time Associated Diagnosis [...] of consciousness of unspecified duration, sequela (CMS/HCC) from Last 3 Months Results * (ABNORMAL) CBC auto differential (06/05/2024 6:00 AM EST) WBC 4.8 4.8 - 10.8 K/mcL LAB HEMETOLOGY METHOD 06/05/2024 7:01 AM [facility] RBC 4.70 4.50 - 5.50 M/mcL LAB HEMETOLOGY METHOD 06/05/2024 7:01 AM [facility] Hemoglobin 14.0 13.5 - 17.5 g/dL LAB HEMETOLOGY METHOD 06/05/2024 7:01 AM [facility] Hematocrit 45.0 42.0 - 54.0 % LAB HEMETOLOGY METHOD 06/05/2024 7:01 AM [facility] MCV 95.9 79.0 - 98.0 FL LAB HEMETOLOGY METHOD 06/05/2024 7:01 AM [facility] MCH 29.9 27.0 - 32.0 pcg LAB HEMETOLOGY METHOD 06/05/2024 7:01 AM [facility] MCHC 31.1(L) 32.0 - 37.0 g/dL LAB HEMETOLOGY METHOD 06/05/2024 7:01 AM [facility] RDW 13.9 11.0 - 15.0 % LAB HEMETOLOGY METHOD 06/05/2024 7:01 AM [facility] Platelets 175 130 - 400 K/mcL LAB HEMETOLOGY METHOD 06/05/2024 7:01 AM [facility] MPV 9.5 7.0 - 11.0 FL LAB HEMETOLOGY METHOD 06/05/2024 7:01 AM [facility] NRBC 0.0 <1.0 % LAB HEMETOLOGY METHOD 06/05/2024 7:01 AM [facility] NRBC Absolute 0.00 <0.10 K/mcL LAB HEMETOLOGY METHOD 06/05/2024 7:01 AM [facility] Neutrophils Relative 43.8 % LAB HEMETOLOGY METHOD 06/05/2024 7:01 AM [facility] Lymphocytes Relative 44.9 % LAB HEMETOLOGY METHOD 06/05/2024 7:01 AM [facility] Monocytes Relative 10.1 % LAB HEMETOLOGY METHOD 06/05/2024 7:01 AM [facility] Eosinophils Relative 0.4 % LAB HEMETOLOGY METHOD 06/05/2024 7:01 AM [facility] Basophils Relative 0.2 % LAB HEMETOLOGY METHOD 06/05/2024 7:01 AM [facility] Immature Granulocytes Relative 0.6 % LAB HEMETOLOGY METHOD 06/05/2024 7:01 AM [facility] Neutrophils Absolute 2.09 1.50 - 7.00 K/mcL LAB HEMETOLOGY METHOD 06/05/2024 7:01 AM EST [facility] Lymphocytes Absolute 2.14 1.00 - 5.00 K/mcL LAB HEMETOLOGY METHOD 06/05/2024 7:01 AM EST [facility] Monocytes Absolute 0.48 0.20 - 1.00 K[facility] LAB HEMETOLOGY METHOD 06/05/2024 7:01 AM EST [facility] Eosinophils Absolute 0.02 0.00 - 0.50 [facility] LAB HEMETOLOGY METHOD 06/05/2024 7:01 AM EST [facility] Basophils Absolute 0.01 0.00 - 0.20 [facility] LAB HEMETOLOGY METHOD 06/05/2024 7:01 AM [facility] Immature Granulocytes Absolute 0.03 0.00 - 0.03 [facility] LAB HEMETOLOGY METHOD 06/05/2024 7:01 AM EST [facility] Blood Venous blood specimen / Unknown 06/05/2024 6:00 AM EST 06/05/2024 6:45 AM EST Antonio Mcmillan MD LAB BLOOD ORDERABLES [facility] [address] [place] [address], * (ABNORMAL) Ammonia (06/05/2024 6:00 AM EST) Ammonia 82(H) 11 - 35 mcmol/L LAB CHEMISTRY METHOD 06/05/2024 7:14 AM EST [facility] Blood Venous blood specimen / Unknown 06/05/2024 6:00 AM EST 06/05/2024 6:45 AM EST Antonio Mcmillan MD LAB BLOOD ORDERABLES [facility] [address] [place] [address], * (ABNORMAL) Comprehensive metabolic panel (06/05/2024 6:00 AM EST) Sodium 141 133 - 145 mmol/L LAB CHEMISTRY METHOD 06/05/2024 7:23 AM [facility] Potassium 4.4 3.5 - 5.5 mmol/L LAB CHEMISTRY METHOD 06/05/2024 7:23 AM [facility] Chloride 102 96 - 110 mmol/L LAB CHEMISTRY METHOD 06/05/2024 7:23 AM [facility] CO2 34(H) 21 - 32 mmol/L LAB CHEMISTRY METHOD 06/05/2024 7:23 AM [facility] Anion Gap 5 3 - 11 LAB CHEMISTRY METHOD 06/05/2024 7:23 AM [facility] Glucose 133(H) 70 - 100 mg/dL LAB CHEMISTRY METHOD 06/05/2024 7:23 AM [facility] BUN 8 5 - 25 mg/dL LAB CHEMISTRY METHOD 06/05/2024 7:23 AM [facility] Creatinine 0.68(L) 0.70 - 1.30 mg/dL LAB CHEMISTRY METHOD 06/05/2024 7:23 AM [facility] eGFR 124 >=60 mL/min/1. 73m2 LAB CHEMISTRY METHOD 06/05/2024 7:23 AM [facility] Comment:Calculation based on the??Chronic Kidney Disease Epidemiology Collaboration (CKD-EPI) equation refit??without adjustment for race. BUN/Creatinine Ratio 11.8 LAB CHEMISTRY METHOD 06/05/2024 7:23 AM [facility] Calcium 9.3 8.5 - 10.5 mg/dL LAB CHEMISTRY METHOD 06/05/2024 7:23 AM [facility] AST (SGOT) 38 10 - 42 unit/L LAB CHEMISTRY METHOD 06/05/2024 7:23 AM [facility] ALT (SGPT) 59 10 - 60 unit/L LAB CHEMISTRY METHOD 06/05/2024 7:23 AM [facility] Alkaline Phosphatase 69 42 - 121 unit/L LAB CHEMISTRY METHOD 06/05/2024 7:23 AM [facility] Total Protein 6.3 6.0 - 8.0 g/dL LAB CHEMISTRY METHOD 06/05/2024 7:23 AM [facility] Albumin 3.1(L) 3.2 - 5.0 g/dL LAB CHEMISTRY METHOD 06/05/2024 7:23 AM [facility] Total Bilirubin 0.3 0.0 - 1.4 mg/dL LAB CHEMISTRY METHOD 06/05/2024 7:23 AM [facility] Blood Venous blood specimen / Unknown 06/05/2024 6:00 AM EST 06/05/2024 6:45 AM EST Antonio Mcmillan MD LAB BLOOD ORDERABLES [facility] [address] [place] [address], from Last 3 Months
== END 2024-08-01 13:30 | disposition home or self-care (01) ==
LOC: HO.RESP 13:29
PROVIDERS: PCP Hospitalist; Visit Provider Nurse Practitioner Family
DX: J45.40 Moderate persistent asthma, uncomplicated (principal)
CPT/HCPCS: 94010; 94640; 94727; 94729

== ENCOUNTER → 2024-08-01 13:57 | Outpatient (BNV) | payer MEDICAID, SELFPAY | PROVIDERS: PCP Hospitalist; Visit Provider Internal Medicine Pulmonary Disease | DX: J45.40 Moderate persistent asthma, uncomplicated (principal) | CPT/HCPCS: 94060; 94727; 94729 ==

== ENCOUNTER 2024-09-07 13:01 | Outpatient (AMB) | payer MEDICAID, SELFPAY ==
[2024-09-07 13:02] VITALS: PULSE 110; O2SAT 93; BMI 34.4
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
--- OUTSIDE RECORDS SUMMARY | 2024-09-07 14:41 | XMS_ITS | Clinical Summary ---
Author Organization 299 [facility] Address [address] [place] [address] Phone Care Team Providers Care Bank Note Designer Name Role Phone Antonio Mcmillan MD Primary Care Provider [phone] Encounters Date Type Department Care Team Description 08/10/2024 Lab Requisition [facility] - Main Lab [address] [facility] [employer] [place] [address] Antonio Mcmillan MD Other terminal system operator (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 from Last 3 Months Social History Tobacco Use Types Packs/Day Years Used Date Smoking Tobacco: Never Assessed Sex and Gender Information Value Date Recorded Sex Assigned at Not on file Legal Sex Male 9:07 PM EST Gender Identity Not on file Sexual Orientation [...] patient's age to complete this topic Meningococcal B Vacine Aged Out No lo nger eligible based on patient's age to complete [...] Procedure Name Priority Date/Time Associated Diagnosis Comments AMMONIA Routine 08/10/2024 6:20 AM EST Other assisted (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 from Last 3 Months Results * (ABNORMAL) Ammonia (08/10/2024 6:20 AM EST) Ammonia 50(H) 11 - 35 mcmol/L LAB CHEMISTRY METHOD 08/10/2024 7:18 AM EST [facility] Blood Venous blood specimen / Unknown 08/10/2024 6:20 AM EST 08/10/2024 6:51 AM EST us Antonio Mcmillan MD LAB BLOOD ORDERABLES Final Resul t [facility] [address] [place] [address], [place] [phone] from Last 3 Months Care Teams Bank Note Designer Relationship Specialty Start Date End Date Antonio Mcmillan MD [address] [place] [address] Dr [address] [place], [place] PCP - General Internal Medicine 08/10/24
--- OUTSIDE RECORDS SUMMARY | 2024-09-07 14:41 | XMS_ITS | Clinical Summary ---
Author Organization [address] Address [address] [place] [address] Phone Care Team Providers Care Hand Box Folder Name Role Phone Antonio Mcmillan DO Primary Care Provider [phone] Allergies No known active allergies Medications acetaminophen [...] Years Used Date Smoking Tobacco: Never Assessed [facility] Utilities Answer Date Recorded In the past 12 months has th e [employer], gas, oil, or water [employer] threatened to shut off services in your [...] Influenza vaccine 02/02/2024 05/03/2022 Covid-19 vaccine series (2023- season) 2024 06/11/2022, 02/25/2022, 06/30/2021, Additional history exists RSV Discussion (1 - 1-dose 75+ series) 2062 Meningococcal Vaccine Aged Out No donna farzaneh eligible based on patient's age to complete this topic Pneumococcal Vaccine (2 - 49 years) Aged Out No longer eligible based on patient's age to complete this topic Insurance [place] file [place] on file [facility] at [address] [address] Advance Directives * Full Code (Latest Code Status on File) Date Activated Date Inactivated Comments 02/17/2024 5:24 PM 02/21/2024 2:32 PM Question Answer Comments With Whom was the Code Status Discussed? Patient Care Teams Hand Box Folder Relationship Specialty Start Date End Date Antonio Mcmillan DO [address] [place] [address] PCP - General Internal Medicine 02/17/24
--- OUTSIDE RECORDS SUMMARY | 2024-09-07 14:41 | XMS_ITS | Data Portability ---
Author Organization [place] [facility] [place] [employer] Address [address] [facility] [address] [place] [address] Care Team Providers Care Director Translational Name Role Phone VITALIY PIPER Primary Care [...] - Room 3 please 023 09/04/19 23 [facility] [address] [facility], [address], [place], [address], 12:54:13 Medication Orders None recorded . Patient [...] Exam Date: 2022 Orderi ng Provid er: [id number] [facility] [address] [facility] [address], [place], [address], 09/03/2022 16:20:38 Result Notes None recorded. Problems Name Problem SNOMED Code Status Onset Date Resolution Date Notes Provider Name and Address Organization Details Recorded Time Brachial plexopathy of right upper limb [id number] 9103 Active 2022 Mani Morton MD [address] [facility],[address], [place], [address] , [facility], [facility]. 14:19:54 Problem Notes None recorded. Procedures Surgical History None recorded. Imaging Results Imaging Date Name Status LastModified by Organiz ation Details LastModified Time 09/03/2022 XR, shoulder, 2 or more view completed [facility] ([facility]) [address] [facility] [address], [place], [address], 09/03/2022 16:20:38 Procedure Notes None recorded. Medical Equipment None Reported. Allergies Allergen ID Allergen Name Allergen Category Reaction Reaction Severity Criticality Documentation Date Start Date Code Code System Note Provider Name and Address Organization Details Recorded Time [id number] Zoloft medicatio n dizziness Not available Not available 09/03/2022 08847 RxNorm Not Available Not Available Not Available [...] Not Available Vitals Date Recorded Body height Body mass index (BMI) Body weight Provider Name and Address Organization Details Last Updated DateTime 09/03/2022 165.1 cm 29.1 kg/m2 17259.66 g Yvette Roy [facility] 09/03/2022 11:49:57 Social History Question Answer Notes LastModified by Organizat ion Details LastModified Time Tobacco Smoking Status Never Smoker Yvette law [facility] 09/03/2022 11:50:53 How Much Alcohol Do You Drink In A Week? None Information not available 09/03/2022 What Was The Date Of Your Most Recent Tobacco Screening? 09/03/2022 [email or web address] Information not available 09/03/2022 Sex: Unknown Functional Status None recorded. Mental Status None recorded. Family History Nothing Reported. Medical History Condition Response Anxiety/Depression Y High Blood Pressure Y Past Encounters Encounter ID Performer Location Encounter Start Date Encounter Closed Date Diagnosis/Indication Diagnosis SNOMED-CT Code Diagnosis ICD10 Code Diagnosis Note [id number] MD Cynthia Ballard [facility] 1 Cynthia Srinivasan [facility] [place] [address] 09/03/2022 11:24:47 09/03/2022 12:21:14 Pain of right shoulder joint 1635991561 2096385 M25.511 Brachial p lexopathy of right upper limb 8536762028 8054331 G54.0 he has a severe right upper [...] Norman Member ID Guarantor Name 09/03/2022 1 [place] Ranjana Soto [id number] Ranjana Soto Notes Date Note Type Note [...] consisting of stretching. Mani Morton MD [address], [place], [address], [facility] 09/03/2022 14:20:10
--- OUTSIDE RECORDS SUMMARY | 2024-09-07 14:41 | XMS_ITS | Encounter Summary ---
Author Organization [employer] Address [address] [place] [address] Care Team Providers Care All Source Analyst Name Role Phone Antonio Mcmillan MD Primary Care Provider [phone] Encounter Details Date Type Department Care Team (Late st Contact Info) Description 06/05/2024 Lab Requisition [facility] - Main Lab [address] [facility] [place] [address] Antonio Mcmillan MD [address] [place] [address] [address] [place], [place] Diffuse traumatic brain injury with loss [...] (ABNORMAL) CBC auto differential (06/05/2024 6:00 AM [facility]) [facility] WBC 4.8 4.8 - 10.8 K/mcL LAB HEMETOLOGY METHOD 06/05/2024 7:01 AM [facility] RBC 4.70 4.50 - 5.50 M/mcL LAB HEMETOLOGY METHOD 06/05/2024 7:01 AM [facility] Hemoglobin 14.0 13.5 - 17.5 g/dL LAB HEMETOLOGY METHOD 06/05/2024 7:01 AM [facility] Hematocrit 45.0 42.0 - 54.0 % LAB HEMETOLOGY METHOD 06/05/2024 7:01 AM [facility] MCV 95.9 79.0 - 98.0 FL LAB HEMETOLOGY METHOD 06/05/2024 7:01 AM [facility] MCH 29.9 27.0 - 32.0 pcg LAB HEMETOLOGY METHOD 06/05/2024 7:01 AM [facility] MCHC 31.1(L) 32.0 - 37.0 g/dL LAB HEMETOLOGY METHOD 06/05/2024 7:01 AM [facility] RDW 13.9 11.0 - 15.0 % LAB HEMETOLOGY METHOD 06/05/2024 7:01 AM [facility] Platelets 175 130 - 400 K/mcL LAB HEMETOLOGY METHOD 06/05/2024 7:01 AM [facility] MPV 9.5 7.0 - 11.0 FL LAB HEMETOLOGY METHOD 06/05/2024 7:01 AM [facility] NRBC 0.0 <1.0 % LAB HEMETOLOGY METHOD 06/05/2024 7:01 AM [facility] NRBC Absolute 0.00 <0.10 K/mcL LAB HEMETOLOGY METHOD 06/05/2024 7:01 AM [facility] Neutrophils Relative 43.8 % LAB HEMETOLOGY METHOD 06/05/2024 7:01 AM [facility] Lymphocytes Relative 44.9 % LAB HEMETOLOGY METHOD 06/05/2024 7:01 AM [facility] Monocytes Relative 10.1 % LAB HEMETOLOGY METHOD 06/05/2024 7:01 AM [facility] Eosinophils Relative 0.4 % LAB HEMETOLOGY METHOD 06/05/2024 7:01 AM [facility] Basophils Relative 0.2 % LAB HEMETOLOGY METHOD 06/05/2024 7:01 AM [facility] Immature Granulocytes Relative 0.6 % LAB HEMETOLOGY METHOD 06/05/2024 7:01 AM [facility] Neutrophils Absolute 2.09 1.50 - 7.00 K/mcL LAB HEMETOLOGY METHOD 06/05/2024 7:01 AM [facility] Lymphocytes Absolute 2.14 1.00 - 5.00 K/mcL LAB HEMETOLOGY METHOD 06/05/2024 7:01 AM [facility] Monocytes Absolute 0.48 0.20 - 1.00 K/mcL LAB HEMETOLOGY METHOD 06/05/2024 7:01 AM [facility] Eosinophils Absolute 0.02 0.00 - 0.50 K/mcL LAB HEMETOLOGY METHOD 06/05/2024 7:01 AM [facility] Basophils Absolute 0.01 0.00 - 0.20 K/mcL LAB HEMETOLOGY METHOD 06/05/2024 7:01 AM [facility] Immature Granulocytes Absolute 0.03 0.00 - 0.03 K/mcL LAB HEMETOLOGY METHOD 06/05/2024 7:01 AM [facility] Blood Venous blood specimen / Unknown 06/05/2024 6:00 AM EST 06/05/2024 6:45 AM EST us Antonio Mcmillan MD LAB BLOOD ORDERABLES Final Resul t Performing Organization Address [facility]/ZIP Co de Phone Number [facility] [address] [place] [address], [place] [phone] * (ABNORMAL) Ammonia (06/05/2024 6:00 AM EST) Ammonia 82(H) 11 - 35 mcmol/L LAB CHEMISTRY METHOD 06/05/2024 7:14 AM [facility] Blood Venous blood specimen / Unknown 06/05/2024 6:00 AM EST 06/05/2024 6:45 AM EST us Antonio Mcmillan MD LAB BLOOD ORDERABLES Final Resul t Performing Organization Address [facility] de Phone Number [facility] [address] [place] [address], [place] [phone] * (ABNORMAL) Comprehensive metabolic panel (06/05/2024 6:00 AM EST) Pathologist [facility] Sodium 141 133 - 145 mmol/L LAB CHEMISTRY METHOD 06/05/2024 7:23 AM [facility] Potassium 4.4 3.5 - 5.5 mmol/L LAB CHEMISTRY METHOD 06/05/2024 7:23 AM [facility] Chloride 102 96 - 110 mmol/L LAB CHEMISTRY METHOD 06/05/2024 7:23 AM [facility] CO2 34(H) 21 - 32 mmol/L LAB CHEMISTRY METHOD 06/05/2024 7:23 AM [facility] Anion Gap 5 3 - 11 LAB CHEMISTRY METHOD 06/05/2024 7:23 AM [facility] Glucose 133(H) 70 - 100 mg/dL LAB CHEMISTRY METHOD 06/05/2024 7:23 AM [facility] BUN 8 5 - 25 mg/dL LAB CHEMISTRY METHOD 06/05/2024 7:23 AM [facility] Creatinine 0.68(L) 0.70 - 1.30 mg/dL LAB CHEMISTRY METHOD 06/05/2024 7:23 AM [facility] eGFR 124 >=60 mL/min/1. 73m2 LAB CHEMISTRY METHOD 06/05/2024 7:23 AM [facility] Comment:Calculation based on the??Chronic Kidney Disease Epidemiology Collaboration (CKD-EPI) equation refit??without adjustment for race. BUN/Creatinine Ratio 11.8 LAB CHEMISTRY METHOD 06/05/2024 7:23 AM [facility] Calcium 9.3 8.5 - 10.5 mg/dL LAB CHEMISTRY METHOD 06/05/2024 7:23 AM [facility] AST (SGOT) 38 10 - 42 unit/L LAB CHEMISTRY METHOD 06/05/2024 7:23 AM [facility] ALT (SGPT) 59 10 - 60 unit/L LAB CHEMISTRY METHOD 06/05/2024 7:23 AM [facility] Alkaline Phosphatase 69 42 - 121 unit/L LAB CHEMISTRY METHOD 06/05/2024 7:23 AM [facility] Total Protein 6.3 6.0 - 8.0 g/dL LAB CHEMISTRY METHOD 06/05/2024 7:23 AM [facility] Albumin 3.1(L) 3.2 - 5.0 g/dL LAB CHEMISTRY METHOD 06/05/2024 7:23 AM [facility] Total Bilirubin 0.3 0.0 - 1.4 mg/dL LAB CHEMISTRY METHOD 06/05/2024 7:23 AM [facility] Blood Venous blood specimen / Unknown 06/05/2024 6:00 AM EST 06/05/2024 6:45 AM EST us Antonio Mcmillan MD LAB BLOOD ORDERABLES Final Resul t [facility] [address] [place] [address], documented in this encounter Visit Diagnoses Diagnosis Diffuse traumatic brain injury with loss of consciousness of unspecified duration, sequela (CMS/HCC) documented in this encounter Care Teams All Source Analyst Relationship Specialty Start Date End Date Antonio Mcmillan MD [address] [place] [address] Dr [address] [place], [place] PCP - General Internal Medicine 08/10/24 documented as of this encounter
--- OUTSIDE RECORDS SUMMARY | 2024-09-07 14:41 | XMS_ITS | Continuity of Care Document ---
Author Organization [facility] Care Team Address [address] [place] [address] Phone Care Team Providers Care News Agent Name Role Phone Provider1, First Unavailable Unavailable Advance Directives Directive Yes / No Effective Date File Name No Information Encounters Encounter Description Practice Location Reason(s) For Visit Diagnoses Date Provider Providers Copied on Encounter [facility] Team, [address] [place] [address], [facility], [place] tel:[phone] [facility] No Information Provider1 First. . Family History [...]
--- OUTSIDE RECORDS SUMMARY | 2024-09-07 14:41 | XMS_ITS | Continuity of Care Document ---
Author Organization [facility] Address [address] [place] [address] Phone Care Team Providers Care Self Pay Representative Name Role Phone Nain EMT P, Kathy Unavailable Unavailable Allergies, Adverse Reactions, Alerts [...] day with food 600 MG - Active albuterol sulfate HFA 90 mcg/actuation aerosol inhaler inhale 2 puff by inhalation route every 4 - 6 hours as needed - Active Qvar RediHaler 40 mcg/actuation HFA breath activated aerosol inhale 1 puff by inhalation route 2 times every day 40 MCG - Active fluticasone propionate 50 mcg/actuation nasal spray,suspension spray 1 - 2 spray by intranasal route every day in each nostril as needed 50-100 MCG - Active acetaminophen 500 mg capsule take [...] Health Non Billable Encounter Indiv.Psychotherapy 30 Minutes(16-37) Jenny OFFICE VISIT ESTAB PT 30-39 MIN 022 OFFICE/OUTPATIENT VISIT EST PT 20-29 MIN S Comp, 1 Surf, Posterior $20 Lab Fee Limit Oral Exam $0.00 Lab Fee Behavioral Health Non Billable Encounter Indiv.Psychotherapy 30 Minutes(16-37) Ca Indiv.Psychotherapy 30 Minutes(16-37) Ca OFFICE VISIT ESTAB PT 10-19 MINS 2021 [...] OFFICE/OUTPATIENT VISIT, EST Indiv.Psychotherapy 30 Minutes(16-37) Se p Indiv.Psychotherapy 30 Minutes(16-37) Au Indiv.Psychotherapy 45 Minutes [...] Oral Exam Dental Caries Radiograph Frst Film Brim Cutter Referral Limit Oral Exam Radiograph Frst Film [...] Diagnoses Date Provider Providers Copied on Encounter [facility], [address] [place] [address], [id number] , tel:[phone] [facility] No Information 3 Nain Kathy. [address] [place], [place], [id number], [place]. tel:[phone] [facility], [address] [place] [address], [id number] , tel:[phone] [facility] No Information 2 Nain Kathy. [address] [place], [place], [id number], [place]. tel:[phone] [facility], [address] [place], [place], [id number] , tel:[phone] [facility] Major depressv disorder, single episode, in partial remis 2 Adiren Muniz. [address] [place], [address], [place]. tel:[phone] Referring Provider: Kathy Gillette, [address] [place], [address] . tel:[phone] Indiv.Psycho therapy 30 Minutes(16-3 7) [employer] [address] [place] [address], [id number] , [place] tel: [phone] [facility] Major depressv disorder, single episode, in partial remis 2 Adrien Muniz. [address] [place], [address], [place]. tel: [phone] Referring Provider: Kathy Gillette, [address] [place] [address], [address] . tel:[phone] OFFICE VISIT ESTAB PT 30-39 MIN [facility] [employer] [address] [place] [address], [id number] , [place] tel: [phone] [facility] Depression (chief complaint)anx iety (chief complaint)tv (chief complaint) Essential hypertensionM ild intermittent asthma without complicationP seudoseizureS evere episode of recurrent major depressive disorder, without psychotic featuresSubst ance abuse 2 Nain Chavez. [address] [place], [place], [id number], [place]. tel: [phone] Referring Provider: Kathy Gillette, [address] [place] [address], [address] . tel:[phone] OFFICE/OUTPA TIENT VISIT EST PT 20-29 MINS [facility] [address] [place] [address], [id number] , [place] tel: [phone] [facility] Follow Up of Anxiety (chief complaint)Fol low Up of depression (chief complaint)Fol low Up of TV (chief complaint) Pseudoseizure Severe episode of recurrent major depressive disorder, without psychotic featuresSubst ance abuseEssentia l hypertensionM ild intermittent asthma without complication 2 Nain Kathy. [address] [place], [place], [id number], [place]. tel: [phone] Referring Provider: Kathy Gillette, [address] [place] [address], [address] . tel:[phone] [facility] [address] [place] [address], [id number] , [place] tel: [phone] [facility] Dental caries on smooth surface penetrating into dentinEncount er for other general examinationEn counter for screening for dental disorders 2 Jimmy Hernandez. [address] [place] [address], [id number], [place]. tel:[phone] Referring Provider: Mary Marquez, [address] [place] [address], [address] . tel:[phone] [employer] [address] [place] [address], [id number] , [place] tel:[phone] [facility] Major depressv disorder, single episode, in partial remis 2 Adrien Muniz. [address] [place] [address], [address], [place]. tel:[phone] Referring Provider: Flavio Ugalde, [address] [place] [address], [address]. tel:[phone] Indiv.Psycho therapy 30 Minutes(16-3 7) [employer] [address] [place] [address], [id number] , [place] tel: [phone] [facility] Major depressv disorder, single episode, in partial remis Sep- 2 Adrien Muniz. [address] [place] [address], [address], [place]. tel:[phone] Referring Provider: Flavio Ugalde, [address] [place] [address], [address]. tel:[phone] Indiv.Psycho therapy 30 Minutes(16-3 7) [employer] [address] [place] [address], [id number] , [place] tel: [phone] [facility] Major depressv disorder, single episode, in partial remis 2 Adrien Muniz. [address] [place] [address], [address], [place]. tel:[phone] Referring Provider: Flavio Ugalde, [address] [place] [address], [facility]. tel:[phone] OFFICE VISIT ESTAB PT 10-19 MINS [employer] [address] [place] [address], [id number] , [place] tel: [phone] [facility] Nose bleeds (chief complaint)TV (chief complaint) Epistaxis 2 Nain Kathy. [address] [place] [address], [place], [id number], [place]. tel:[phone] Referring Provider: Kathy Gillette, [address] [place], [address] . tel:[phone] OFFICE/OUTPA TIENT VISIT EST PT 20- MINS [employer] [address] [place] [address], [id number] , [place] tel: [phone] [facility] back pain (chief complaint) Major depressive disorder, single episode, in partial remissionMild intermittent asthma without complicationP seudoseizureE ssential hypertensionS ubstance use disorderPoste rior chest pain 2 Nain Kathy. [address] [place], [place], [id number], [place]. tel:[phone] Referring Provider: Kathy Gillette, [address] [place], [address] . tel:[phone] OFFICE VISIT ESTAB PT 10-19 MINS [employer] [address] [place] [address], [id number] , [place] tel: [phone] [facility] Letter for immigration (chief complaint) Essential hypertensionM ajor depressive disorder, single episode, in partial remissionMild intermittent asthma without complicationP seudoseizure 2 Nain Kathy. [address] [place], [place], [id number], [place]. tel:[phone] Referring Provider: Kathy Gillette, [address] [place], [address] . tel:[phone] OFFICE/OUTPA TIENT VISIT EST PT 20-29 MINS [employer] [address] [place] [address], [id number] , [place] tel: [phone] [facility] Follow Up of Hypertension (chief complaint) Essential hypertensionM ajor depressive disorder, single episode, in partial remissionMild intermittent asthma without complicationP seudoseizure 2 Nain Kathy. [address] [place], [place], [id number], [place]. tel: [phone] Referring Provider: Kathy Gillette, [address] [place], [address] . tel:[phone] [facility] [address] [place] [address], [id number] , [place] tel: [phone] [facility] caries on smooth surface penetrating into dentinEncount er for other general examination 2 Jimmy Arunrenzo. [address] [place] [address], [id number], [place]. tel: [phone] Referring Provider: Mary Marquez, [address] [place] [address], [address] . tel:[phone] [employer] [address] [place] [address], [id number] , [place] tel: [phone] [address] [place] [address] Medical No Information 2 Patricia franklin RN. [address] [place], [address], [place]. OFFICE/OUTPA TIENT VISIT EST PT 20-29 MINS [facility] [address] [place] [address], [id number] , [place] tel: [phone] [facility] Follow Up of Hypertension (chief complaint) Essential hypertensionM ild intermittent asthma without complicationM ajor depressive disorder, single episode, in partial remissionPseu doseizure 1 Nain Kathy. [address] [place], [place], [id number], [place]. tel: [phone] [facility] [employer] [address] [place] [address], [id number] , [place] tel: [phone] [facility] No Information 1 Nain Kathy. [address] [place], [place], [id number], [place]. tel: [phone] [employer] [address] [place] [address], [id number] , [place] tel: [phone] [facility] Pseudoseizure 1 Nain Kathy. [address] [place], [place], [id number], [place]. tel:[phone] OFFICE VISIT ESTAB PT 30-39 MIN [facility] [address] [place] [address], [id number] , [place] tel: [phone] [facility] Back pain (chief complaint)Anx iety (chief complaint)Dep ression (chief complaint) Back pain, unspecified back location, unspecified back pain laterality, unspecified chronicityMaj or depressive disorder, single episode, in partial remissionMild intermittent asthma without complicationE ssential hypertensionP seudoseizure 1 Nain Kathy. [address] [place], [place], [id number], [place]. tel:[phone] Referring Provider: Kathy Gillette, [address] [place] [address], [address] . tel:[phone] [facility] [address] [place] [address], [id number] , tel: [phone] [facility] Deposits [accretions] on teethEncounte r for other general examinationEn counter for screening for dental disordersDent al caries, unspecifiedCh ronic periodontitis , unspecifiedRi sk for dental caries, high 1 Jimmy Hernandez. [address] [place] [address], [id number], [place]. tel: [phone] Referring Provider: Mary Marquez, [address] [place] [address], [address] . tel:[phone] [facility] [address] [place] [address], [id number] , [place] tel: [phone] [facility] No Information 1 Nain Chavez. [address] [place], [place], [id number], [place]. tel: [phone] OFFICE/OUTPA TIENT VISIT EST PT 20-29 MINS [facility] [address] [place] [address], [id number] , [place] tel: [phone] [facility] Follow Up of Anxiety (chief complaint)Fol low Up of Depression (chief complaint)Idalia k pain (chief complaint) Major depressive disorder, single episode, in partial remissionMild intermittent asthma without complicationE ssential hypertensionP seudoseizureB ack pain, unspecified back location, unspecified back pain laterality, unspecified chronicity 1 Nain Chavez. [address] [place], [place], [id number], [place]. tel: [phone] Referring Provider: Kathy Gillette, [address] [place] [address], [address] . tel:[phone] [facility], [address] [place] [address], [id number] , [place] tel: [phone] [address] [place] [address] No Information 1 Provider1 First. . Referring Provider: First Provider1. Indiv.Psycho therapy 30 Minutes(16-3 7) [facility] [address] [place] [address], [id number] , tel: [phone] [facility] Major depressv disorder, single episode, in partial remis 1 Adrien Muniz. [address] [place] [address], [address], [place]. tel:[phone] Referring Provider: Flavio Ugalde, [address] [place] [address], [address]. tel:[phone] OFFICE VISIT ESTAB PT 30-39 MIN [facility] [address] [place] [address], [id number] , [place] tel: [phone] [facility] Follow Up of Depression (chief complaint) Episode of recurrent major depressive disorder, unspecified depression episode severityEssen tial hypertensionP seudoseizureM ild intermittent asthma without complication 1 Nain Chavez. [address] [place], [place], [id number], . tel: [phone] Referring Provider: Kathy Gillette, [address] [place], [address] . tel:[phone] [facility], [address] [place] [address], [id number] , tel: [phone] [address] [place] [address] No Information 1 Provider1 First. . Referring Provider: Provider1. Indiv.Psycho therapy 30 Minutes(16-3 7) [facility] [address] [place] [address], [id number] , tel: [phone] [facility] Major depressv disorder, single episode, in partial remis 1 Adrien Muniz. [address] [place] [address], [address], [place]. tel: [phone] Referring Provider: Flavio Ugalde, [address] [place] [address], [address]. tel:[phone] OFFICE VISIT ESTAB PT 30-39 MIN [facility] [address] [place] [address], [id number] , tel: [phone] [facility] Follow Up of Anxiety (chief complaint)Dep ression (chief complaint) Episode of recurrent major depressive disorder, unspecified depression episode severityPseud oseizureEssen tial hypertensionM ild intermittent asthma without complication 1 Nain Chavez. [address] [place], [place], [id number], [place]. tel: [phone] Referring Provider: Kathy Gillette, [address] [place], [address] . tel:[phone] [facility] [address] [place] [address], [id number] , [place] tel:[phone] [facility] No Information 0 Nain Tuckeria. [address] [place], [place], [id number], [place]. tel: [phone] Referring Provider: Kathy Nain, [address] [place], [address] . tel:[phone] Indiv.Psycho therapy 45 Minutes (38-52) [facility] [employer] [address] [place] [address], [id number] , [place] tel: [phone] [facility] Major depressv disorder, single episode, in partial remis 0 Adrien Muniz. [address] [place], [address], [place]. tel: [phone] Referring Provider: Flavio Ugalde, [address] [place] [address], [address]. tel:[phone] Indiv.Psycho therapy 30 Minutes(16-3 7) [facility] [address] [place] [address], [id number] , [place] tel: [phone] [facility] Major depressv disorder, single episode, in partial remis 0 Adrien Muniz. [address] [place], [address], [place]. tel: [phone] Referring Provider: Flavio Ugalde, [address] [place] [address], [address]. tel:[phone] [facility] [address] [place], [place], [id number] , [place] tel: [phone] [facility] No Information 0 Patricia Resendiz. [address] [place] [place], [place], [id number], [place]. tel: [phone] Referring Provider: Astrid Gomez, [address] [place], [address] . tel:[phone] OFFICE/OUTPA TIENT VISIT, EST [facility] [address] [place] [address], [id number] , [place] tel: [phone] [facility] insomnia (chief complaint) Psychophysiol ogical insomnia Sep-1 0 Zheng Márquez. [address] [place] [address], [address], [place]. tel: [phone] Referring Provider: Yulisa Calzada, [address] [place] [address], [address]. tel:[phone] OFFICE/OUTPA TIENT VISIT, EST [facility] [address] [place] [address], [id number] , [place] tel: [phone] [address] [place] [address] hand pain (chief complaint) Hand pain, right Sep-0 0 Ronnell Thapa. [address] [place] [address], [id number], [place]. tel: [phone] Referring Provider: Alanis Reynaga, [address] [place] [address], [address] . tel:[phone] [facility], [address] [place] [address], [id number] , tel: [phone] [facility] No Information Jan- 0 Nain Chavez. [address] [place] [address], [id number], [place]. tel: [phone] Referring Provider: Kathy Gillette, [address] [place] [address], [address] . tel:[phone] [facility], [address] [place] [address], [id number] , [place] tel: [phone] [facility] Major depressv disorder, single episode, in partial remis Cory- 0 Adrien Muniz. [address] [place] [address], [address], [place]. tel: [phone] Referring Provider: Flavio Ugalde, [address] [place] [address], [address]. tel:[phone] OFFICE VISIT ESTAB PT 10 MIN [facility] [address] [place] [address], [id number] , [place] tel: [phone] [facility] COVID (chief complaint) COVID-19 virus infection 0 Nain Kathy. [address] [place], [place], [id number], . tel:[phone] Referring Provider: Kathy Gillette, [address] [place], [address] . tel:[phone] OFFICE VISIT ESTAB PT 10 MIN [facility] [address] [place] [address], [id number] , tel: [phone] [facility] COVID-19 (chief complaint) COVID-19 virus infection 0 Nain Kathy. [address] [place], [place], [id number], . tel:[phone] Referring Provider: Kathy Gillette, [address] [place], [address] . tel:[phone] [facility] [address] [place] [address], [id number] , tel: [phone] [facility] No Information 0 Nain Kathy. [address] [place], [place], [id number], . tel:[phone] Referring Provider: Kathy Gillette, [address] [place], [address] . tel:[phone] OFFICE VISIT ESTAB PT 10 MIN [facility] [address] [place] [address], [id number] , [place] tel: [phone] [facility] Chest pain/ cough (chief complaint) CoughChest pain, unspecified type 0 Nain Kathy. [address] [place], [place], [id number], [place]. tel:[phone] Indiv.Psycho therapy 30 Minutes(16-3 7) [facility] [address] [place] [address], [id number] , [place] tel: [phone] [facility] Major depressv disorder, single episode, in partial remis 0 Adrien Muniz. [address] [place], [address], [place]. tel:[phone] Referring Provider: Flavio Ugalde, [address] [place] [address], [address]. tel:[phone] [facility] [address] [place] [address], [id number] , [place] tel: [phone] [facility] No Information 0 Adrien Muniz. [address] [place] [address], [address], [place]. tel: [phone] Referring Provider: Flavio Ugalde, [address] [place] [address], [facility]. tel:[phone] OFFICE VISIT ESTAB PT 10 MIN [facility] [employer] [address] [place] [address], [id number] , tel: [phone] [facility] Thoracic back pain (chief complaint)Ast hma (chief complaint) Shortness of breathHistory of asthmaChronic midline thoracic back painOther chronic pain 0 Nain Chavez. [address] [place] [address], [id number], [place]. tel:[phone] Referring Provider: Kathy Gillette, [address] [place], [address] . tel:[phone] [facility] [address] [place] [address], [id number] , [place] tel: [phone] [facility] Major depressv disorder, single episode, in partial remis 0 Adrien Muniz. [address] [place] [address], [address], [place]. tel:[phone] Referring Provider: Flavio Ugalde, [address] [place] [address], [address]. tel:[phone] [facility] [address] [place] [address], [id number] , tel: [phone] [facility] No Information 0 Jose Allen. [address] [place] [address], [id number], . tel: [phone] Referring Provider: Alejandro Garcia, [address] [place] [address], [address] . tel:[phone] [facility], [address] [place] [address], [id number] , tel: [phone] [facility] No Information 0 Adrien Muniz. [address] [place] [address], [address], [place]. tel: [phone] Referring Provider: Flavio Ugalde, [address] [place] [address], [facility]. tel:[phone] [facility], [address] [place] [address], [id number] , tel: [phone] [facility] Major depressv disorder, single episode, in partial remis 0 Adrien Muniz. [address] [place] [address], [address], [place]. tel: [phone] Referring Provider: Flavio Ugalde, [address] [place] [address], [facility]. tel:[phone] OFFICE VISIT ESTAB PT 10 MIN [facility] [address] [place] [address], [id number] , tel: [phone] [facility] Follow Up of Depression (chief complaint)Dwight h (chief complaint) Major depressive disorder, recurrent, in partial remissionRash of handsEssentia l hypertension Oct- 0 Nain Chavez. [address] [place] [address], [id number], [place]. tel: [phone] Referring Provider: Kathy Gillette, [address] [place] [address], [address] . tel:[phone] [facility] [address] [place] [address], [id number] , tel: [phone] [facility] Major depressv disorder, single episode, in partial remis 0 Adrien Muniz. [address] [place], [address], [place]. tel:[phone] Referring Provider: Flavio Ugalde, [address] [place] [address], [facility]. tel:[phone] [facility] [employer] [address] [place] [address], [id number] , [place] tel: [phone] [facility] Major depressv disorder, single episode, in partial remis 0 Adrien Muniz. [address] [place], [address], [place]. tel: [phone] Referring Provider: Flavio Ugalde, [address] [place] [address], [facility]. tel:[phone] Indiv.Psycho therapy 30 Minutes(16-3 7) [facility] [employer] [address] [place] [address], [id number] , tel: [phone] [facility] Major depressv disorder, single episode, in partial remis 0 Adrien Muniz. [address] [place] [address], [address], [place]. tel:[phone] Referring Provider: Flavio Ugalde, [address] [place] [address], [facility]. tel:[phone] OFFICE VISIT ESTAB PT 10 MIN [employer] [address] [place] [address], [id number] , tel:[phone] [facility] Follow Up of ER/Seizure (chief complaint) Body mass index (BMI) 31.0-31.9, adultModerate episode of recurrent major depressive disorderHisto ry of seizuresHisto ry of alcohol abuse 0 Nain Kathy. [address] [place], [place], [id number], [place]. tel: [phone] Indiv.Psycho therapy 30 Minutes(163 7) [employer] [address] [place] [address], [id number] , tel: [phone] [facility] Major depressv disorder, single episode, in partial remisAlcohol use, unspecified with intoxication, unspecified 6 0 Adrien Muniz. [address] [place], [address], . tel: [phone] Referring Provider: Flavio Ugalde, [address] [place] [address], [address]. tel:[phone] Indiv.Psycho therapy 30 Minutes(3 7) [employer] [address] [place] [address], [id number] , tel: [phone] [facility] Major depressv disorder, single episode, in partial remis 2 9 Juradosiva Muniz. [address] [place], [address], [place]. tel: [phone] [employer] [address] [place] [address], [id number] , tel: [phone] [facility] Encounter for screening for dental disordersEnco unter for other general examinationRi sk for dental caries, highDental caries, unspecified 8- 9 Jimmy Hernandez. [address] [place] [address], [id number], [place]. tel:[phone] Referring Provider: Mary Marquez, [address] [place] [address], [address] . tel:[phone] Indiv.Psycho therapy 30 Minutes(163 7) [employer] [address] [place] [address], [id number] , tel: [phone] [facility] Major depressv disorder, single episode, in partial remis Apr-3 0-201 9 Adrien Muniz. [address] [place], [address], . tel: [phone] Indiv.Psycho therapy 30 Minutes(16-3 7) [employer] [address] [place], [place], [id number] , [place] tel:[phone] [facility] Major depressv disorder, single episode, in partial remis 3 9 Adrien Muniz. [address] [place], [address], [place]. tel:[phone] Referring Provider: Flavio Ugalde, [address] [place] [address], [address]. tel:[phone] OFFICE/OUTPA TIENT VISIT, EST [employer] [address] [place] [address], [id number] , [place] tel: [phone] [facility] depression (chief complaint) Body mass index (BMI) 31.0-31.9, adultLeft-clary ed chest painPalpitati onsRecurrent major depressive disorder, in remissionEsse ntial hypertension 9 Nain Kathy. [address] [place] [address], [place], [id number], [place]. tel:[phone] Indiv.Psycho therapy 30 Minutes(16-3 7) [employer] [address] [place] [address], [id number] , [place] tel: [phone] [facility] Major depressv disorder, single episode, in partial remis 9 Adrien Muniz. [address] [place], [address], [place]. tel: [phone] Referring Provider: Flavio Ugalde, [address] [place], [address]. tel:[phone] Indiv.Psycho therapy 30 Minutes(16-3 7) [employer] [address] [place] [address], [id number] , [place] tel:[phone] [facility] Major depressv disorder, single episode, in partial remis 9 Adrien Muniz. [address] [place], [address], [place]. tel:[phone] Referring Provider: Flavio Ugalde, [address] [place], [address]. tel:[phone] Indiv.Psycho therapy 45 Minutes (38-52) [facility] [employer] [address] [place] [address], [id number] , [place] tel: [phone] [facility] Major depressv disorder, single episode, in partial remis 9 Adrien Muniz. [address] [place], [address], [place]. tel: [phone] Referring Provider: Flavio Ugalde, [address] [place] [address], [address]. tel:[phone] OFFICE/OUTPA TIENT VISIT, [facility] [employer] [address] [place] [address], [id number] , [place] tel: [phone] [facility] Anxiety (chief complaint) Body mass index (BMI) 31.0-31.9, adultPolycyth emiaMild intermittent asthma without complicationM ajor depressive disorder, recurrent, in partial remissionSeiz ures 9 Nain Kathy. [address] [place], [place], [id number], [place]. tel: [phone] OFFICE/OUTPA TIENT VISIT, [facility] [employer] [address] [place] [address], [id number] , [place] tel: [phone] [facility] of Anxiety (chief complaint) Body mass index (BMI) 31.0-31.9, adultEpilepsy , unspecified, not intractable, without status epilepticusBi polar 1 disorder 9 Nain Kathy. [address] [place], [place], [id number], [place]. tel: [phone] Indiv.Psycho therapy 45 Minutes (38-52) [employer] [address] [place] [address], [id number] , [place] tel: [phone] [facility] Major depressv disorder, single episode, in partial remis 9 Melissa Falcon. [address] [place], [address], [place]. tel:[phone] FAMILY/COUPL E THARAPY 45-60 MIN. [employer] [address] [place] [address], [id number] , [place] tel: [phone] [facility] Major depressv disorder, single episode, in partial remisBipolar schizoaffecti ve psychosis 9 Jurado Flavio. [address] [place], [address], [place]. tel: [phone] Referring Provider: Flavio Ugalde, [address] [place], [address]. tel:[phone] Indiv.Psycho therapy 45 Minutes (38-52) [employer] [address] [place], [place], [id number] , [place] tel: [phone] [facility] Major depressv disorder, single episode, in partial remisCocaine dependence, in remissionCann abis dependence, in remissionAlco hol dependence, in remission 9 Adrien Muniz. [address] [place], [address], [place]. tel: [phone] OFFICE/OUTPA TIENT VISIT, EST [employer] [address] [place] [address], [id number] , [place] tel: [phone] [facility] Anxiety (chief complaint) Body mass index (BMI) 30.0-30.9, adultModerate episode of recurrent major depressive disorderAnxie tySeizures 9 Nain Chavez. [address] [place], [place], [id number], [place]. tel:[phone] Referring Provider: Kathy Gillette, [address] [place], [address] . tel:[phone] [employer] [address] [place] [address], [id number] , [place] tel:[phone] [facility] Encounter for screening for dental disordersEnco unter for other general examination 9 Jimmy Hernandez. [address] [place] [address], [id number], . tel: [phone] Referring Provider: Mary Marquez, [address] [place] [address], [address] . tel:[phone] OFFICE VISIT ESTAB PT 25 MIN [employer] [address] [place] [address], [id number] , [place] tel: [phone] [facility] Up of MDD (chief complaint) Body mass index (BMI) 32.0-32.9, adultMajor depressive disorder, recurrent, in partial remissionEpil epsy, unspecified, not intractable, without status epilepticusMi ld intermittent asthma without complicationE ssential hypertension 8 Shira Begum. [address] [place], [place], [id number], . tel: [phone] [employer] [address] [place] [address], [id number] , tel: [phone] [facility] Major depressive disorder, recurrent, in partial remission 8 No Information Referring Provider: Benoit Gooden , [address] [place] [address], [address] . tel:[phone] [employer] [address] [place] [address], [id number] , tel: [phone] [facility] Major depressive disorder, recurrent, in partial remission 8 No Information [employer] [address] [place] [address], [id number] , [place] tel: [phone] [facility] Epilepsy, unspecified, not intractable, without status epilepticusMa kvng depressive disorder, recurrent, in partial remission Fe0 8 No Information Referring Provider: Benoit Gooden , [address] [place] [address], [address] . tel:[phone] [employer] [address] [place] [address], [id number] , tel: [phone] [facility] examination 8 Gilberto Mccall. [address] [place] [address], [id number], [place]. tel: [phone] Referring Provider: Cal Macias, [address] [place] [address], [id number] . tel:[phone] [employer] [address] [place] [address], [id number] , tel: [phone] [facility] examination 8 Gilberto Mccall. [address] [place] [address], [id number], [place]. tel: [phone] Referring Provider: Cal Macias, [address] [place] [address], [id number] . tel:[phone] OFFICE VISIT ESTAB PT 25 MIN [employer] [address] [place] [address], [id number] , tel: [phone] [facility] nose bleeds (chief complaint) Obesity, unspecifiedAc reese non-recurrent ethmoidal sinusitisEpil epsy, unspecified, not intractable, with status epilepticus 8 Giacomo Laboy. [address] [place] [address], [id number], [place]. tel: [phone] Referring Provider: Benoit Gooden , [address] [place] [address], [address] . tel:[phone] [employer] [address] [place] [address], [id number] , [place] tel: [phone] [facility] examination 7 Demenezes Paola. [address] [place] [address], [address], [place]. tel: [phone] Referring Provider: Katie Mcbride, [address] [place] [address], [address]. tel:[phone] [employer] [address] [place] [address], [id number] , [place] tel: [phone] [facility] Epilepsy, unspecified, not intractable, without status epilepticusBi polar disorder, unspecified 7 No Information [employer] [address] [place] [address], [id number] , [place] tel: [phone] [facility] Bipolar disorder, unspecified No Information [employer] [address] [place] [address], [id number] , [place] tel: [phone] [facility] examination 7 Macias Cal. [address] [place] [address], [id number], [place]. tel: [phone] Referring Provider: Cal Macias[address], [address] . tel:[phone] [employer] [address] [place] [address], [id number] , [place] tel: [phone] [facility] Bipolar disorder, unspecifiedEp ilepsy, unspecified, not intractable, without status epilepticus No Information OFFICE/OUTPA TIENT VISIT, EST [employer] [address] [place] [address], [id number] , [place] tel: [phone] [facility] Bipolar disorder (chief complaint) Obesity, unspecifiedBi polar disorder, unspecifiedEp ilepsy, unspecified, not intractable, without status epilepticusEs sential hypertensionF atigue, unspecified type Giacomo Laboy. [address] [place] [address], [id number], [place]. tel: [phone] Referring Provider: Benoit Gooden , [address] [place] [address], [address] . tel:[phone] [employer] [address] [place] [address], [id number] , [place] tel: [phone] [facility] Bipolar disorder, unspecifiedEp ilepsy, unspecified, not intractable, without status epilepticus No Information Referring Provider: Benoit Gooden , [address] [place] [address], [address] . tel:[phone] OFFICE/OUTPA TIENT VISIT, [employer] [address] [place] [address], [id number] , [place] tel: [phone] [facility] Up of seizure (chief complaint)Fol low Up of Bipolar disorder (chief complaint) Obesity, unspecifiedBi polar disorder, unspecifiedEp ilepsy, unspecified, not intractable, without status epilepticus Patricia Resendiz. [address] [place] [address], [id number], [place]. tel: [phone] Referring Provider: Benoit Gooden , [address] [place] [address], [address] . tel:[phone] [employer] [address] [place] [address], [id number] , [place] tel: [phone] [facility] Bipolar disorder, unspecifiedEp ilepsy, unspecified, not intractable, without status epilepticus No Information OFFICE/OUTPA TIENT VISIT, [employer] [address] [place] [address], [id number] , [place] tel: [phone] [facility] of epilepsy (chief complaint) Bipolar disorder, unspecifiedEp ilepsy, unspecified, not intractable, without status epilepticus 7 Giacomo Laboy. [address] [place] [address], [id number], [place]. tel: [phone] Referring Provider: Benoit Gooden , [address] [place] [address], [address] . tel:[phone] [employer] [address] [place] [address], [id number] , [place] tel: [phone] [facility] examination [address], [id number], [place]. tel: [phone] Referring Provider: Cal Macias, [address] [place] [address], [address] . tel:[phone] [employer] [address] [place] [address], [id number] , tel: [phone] [facility] examination 7 Taylor Mukherjeelpa. [address] [place] [address], [id number], [place]. tel:[phone] Referring Provider: Katie Mcbride, [address] [place] [address], [address]. tel:[phone] [employer] [address] [place] [address], [id number] , tel: [phone] [facility] Epilepsy, unspecified, not intractable, without status epilepticus 6 No Information [employer] [address] [place] [address], [id number] , [place] tel: [phone] [facility] examination 6 [facility]. [address] [place] [address], [id number], [place]. tel: [phone] Referring Provider: Katie Mcbride, [address] [place] [address], [address]. tel:[phone] OFFICE/OUTPA TIENT VISIT, EST [employer] [address] [place] [address], [id number] , [place] tel: [phone] [facility] of epilepsia (chief complaint) Bipolar disorder, unspecifiedEp ilepsy, unspecified, not intractable, without status epilepticusSh ortness of breath 6 Giacomo Laboy. [address] [place] [address], [id number], [place]. tel: [phone] Referring Provider: Benoit Gooden , [address] [place] [address], [address] . tel:[phone] [employer] [address] [place] [address], [id number] , tel: [phone] [facility] examination Mar- 6 Reed Wilson. [address] [place] [address], [address], [place]. tel:[phone] Referring Provider: Katie Mcbride, [address] [place] [address], [address]. tel:[phone] [employer] [address] [place] [address], [id number] , [place] tel: [phone] [facility] examination Feb-2 6 Reed Wilson. [address] [place] [address], [address], [place]. tel:[phone] Referring Provider: Katie Mcbride, [address] [place] [address], [address]. tel:[phone] OFFICE/OUTPA TIENT VISIT, EST [employer] [address] [place] [address], [id number] , [place] tel: [phone] [facility] Follow Up of ER (chief complaint) Epilepsy, unspecified, not intractable, without status epilepticusBi polar disorder, unspecified 6 Giacomo Laboy. [address] [place] [address], [id number], [place]. tel:[phone] Referring Provider: Benoit Gooden , [address] [place] [address], [address] . tel:[phone] [employer] [address] [place] [address], [id number] , [place] tel: [phone] [facility] Bipolar disorder, unspecified Feb-0 6 No Information Indiv.Psycho therapy 30 Minutes [employer] [address] [place] [address], [id number] , [place] tel: [phone] [facility] Major depressv disorder, single episode, in partial remisCocaine dependence, in remissionCann abis dependence, in remissionAlco hol dependence, in remission 6 Seth Mckenzie. [address] [place], [address], [place]. tel: [phone] Referring Provider: Benoit Gooden , [address] [place] [address], [address] . tel:[phone] OFFICE/OUTPA TIENT VISIT, EST [employer] [address] [place] [address], [id number] , [place] tel: [phone] [facility] of Shortness of breath (chief complaint) Epilepsy, unspecified, not intractable, without status epilepticusSh ortness of breathRash of hands 6 Giacomo Laboy. [address] [place] [address], [id number], [place]. tel: [phone] Referring Provider: Benoit Gooden , [address] [place] [address], [address] . tel:[phone] [employer] [address] [place] [address], [id number] , tel: [phone] [facility] Major depressive disorder, recurrent, in partial remission November-0 6 No Information Indiv. Diag. Evaluation (Physician) [employer] [address] [place] [address], [id number] , tel: [phone] [facility] Major depressv disorder, single episode, in partial remisCocaine dependence, in remissionCann abis dependence, in remissionAlco hol dependence, in remission 6 Gurmeet Woodard. [address] [place], [address], [place]. tel: [phone] Referring Provider: Benoit Gooden , [address] [place] [address], [address] . tel:[phone] [employer] [address] [place] [address], [id number] , tel: [phone] [facility] examination Sep- 6 Reed Katie. [address] [place] [address], [facility], . tel: [phone] Referring Provider: Katie Mcbride, [address] [place] [address], [facility]. tel:[phone] OFFICE VISIT ESTAB PT 25 MIN [employer] [address] [place] [address], [id number] , tel: [phone] [facility] Up of Hypertension (chief complaint)Fol low Up of B/L arm swelling (chief complaint) Arm swellingBipol ar disorder, unspecifiedEp ilepsy, unspecified, not intractable, without status epilepticusEs sential hypertensionS hortness of breath 6 Giacomo Laboy. [address] [place] [address], [id number], . tel: [phone] Referring Provider: Benoit Gooden , [address] [place] [address], [address] . tel:[phone] Indiv.Psycho therapy 30 Minutes [employer], [address] [place] [address], [id number] , tel: [phone] [facility] Major depressive disorder, recurrent, in partial remission Sep- 6 Ann Khushi. [address] [place], [address], [place]. tel: [phone] Referring Provider: Benoit Gooden , [address] [place] [address], [address] . tel:[phone] Indiv.Psycho therapy 45 Minutes [employer] [address] [place] [address], [id number] , tel: [phone] [facility] Major depressive disorder, recurrent, in partial remission Sep-0 - 6 Ann Hkushi. [address] [place], [address], [place]. tel: [phone] Referring Provider: Benoit Gooden , [address] [place] [address], [address] . tel:[phone] PREVENT VISIT EST [employer] [address] [place] [address], [id number] , tel: [phone] [facility] Preventive exam (chief complaint) Encounter for general adult medical examination without abnormal findingsBipol ar disorder, unspecifiedEp ilepsy, unspecified, not intractable, without status epilepticusEs sential hypertensionA rm swellingTight ness in chest 6 Giacomo Abadkade. [address] [place] [address], [id number], [place]. tel: [phone] Referring Provider: Benoit Gooden , [address] [place] [address], [address] . tel:[phone] Indiv.Psycho therapy 45 Minutes [employer] [address] [place] [address], [id number] , tel: [phone] [facility] Major depressive disorder, recurrent, in partial remission 6 Seth Mckenzie. [address] [place], [address], [place]. tel: [phone] Referring Provider: Benoit Gooden , [address] [place] [address], [address] . tel:[phone] Indiv.Psycho therapy 45 Minutes [employer] [address] [place] [address], [id number] , [place] tel: [phone] [facility] Major depressive disorder, recurrent, in partial remission 6 Seth Vuia. [address] [place], [address], [place]. tel: [phone] Referring Provider: Benoit Gooden , [address] [place] [address], [address] . tel:[phone] [employer] [address] [place] [address], [id number] , [place] tel: [phone] [facility] examination 5 Reed Wilson. [address] [place] [address], [address], [place]. tel: [phone] Referring Provider: Lela Mojica, [address] [place] [address], [address]. tel:[phone] Indiv.Psycho therapy 30 Minutes [employer] [address] [place] [address], [id number] , [place] tel: [phone] [facility] Major depressive disorder, recurrent, in partial remission 5 Ann Khushi. [address] [place] [address], [address], [place]. tel: [phone] Referring Provider: Lela Mojica, [address] [place] [address], [address]. tel:[phone] Indiv.Psycho therapy 45 Minutes [employer] [address] [place] [address], [id number] , [place] tel: [phone] [facility] Major depressive disorder, recurrent, in partial remission 5 Annshanika Mckenzie. [address] [place] [address], [address], [place]. tel: [phone] Referring Provider: Lela Mojica, [address] [place] [address], [address]. tel:[phone] OFFICE/OUTPA TIENT VISIT, EST [employer] [address] [place] [address], [id number] , [place] tel: [phone] [facility] of Depression (chief complaint) Epilepsy, unspecified, not intractable, with status epilepticusMa kvng depressive disorder, recurrent, in partial remission 5 Galina Vogel. [address] [place] [address], [address], [place]. tel: [phone] Referring Provider: Lela Mojica, [address] [place] [address], [address]. tel:[phone] [employer] [address] [place] [address], [id number] , [place] tel: [phone] [facility] Other depressive episodes 5 No Information [facility] [address] [place] [address], [id number] , [place] tel: [phone] [facility] examination [address] [place], . Referring Provider: Lela Mojica, [address] [place] [address], [address]. tel:[phone] Indiv.Psycho therapy 45 Minutes [facility] [address] [place] [address], [id number] , [place] tel: [phone] [facility] Major depressive disorder, recurrent, in partial remission 5 [facility]. [address] [place], [address], [place]. tel: [phone] Referring Provider: Lela Mojica, [address] [place] [address], [address]. tel:[phone] Psychiatric Diagnostic Evaluation ( Non MD) [facility] [address] [place] [address], [id number] , [place] tel: [phone] [facility] DepressionNon dependent alcohol abuse, unspecified drinking behavior 5 [facility]. [address] [place] [address], [address], [place]. tel: [phone] Referring Provider: Lela Mojica, [address] [place] [address], [address]. tel:[phone] OFFICE/OUTPA TIENT VISIT, EST [facility] [address] [place] [address], [id number] , [place] tel: [phone] [facility] depression (chief complaint)sei zures (chief complaint) DepressionSei zure disorder 5 [facility]. [address] [place], [place], [id number], [place]. tel: [phone] Referring Provider: Lela Mojica, [address] [place], [address]. tel:[phone] [employer] [address] [place] [address], [id number] , [place] tel: [phone] [facility] examination 5 Reed Katie. [address] [place] [address], [place], [address], [place]. tel: [phone] Referring Provider: Flavio Berg, [address] [place] [address], [address]. tel:[phone] [employer] [address] [place] [address], [id number] , [place] tel: [phone] [facility] Bipolar 1 disorderPolys ubstance dependence 5 No Information OFFICE/OUTPA TIENT VISIT, [facility] [employer] [address] [place] [address], [id number] , [place] tel: [phone] [facility] Follow Up of ED (chief complaint) Seizure disorderPolys ubstance dependenceBip olar 1 disorder 5 Galina Vogel. [address] [place] [address], [address], [place]. tel: [phone] Referring Provider: Llea Mojica, [address] [place] [address], [address]. tel:[phone] [employer] [address] [place] [address], [id number] , [place] tel: [phone] [facility] Seizure disorder 4 Galina Vogel. [address] [place] [address], [address], [place]. tel: [phone] OFFICE/OUTPA TIENT VISIT, [facility] [address] [place] [address], [id number] , [place] tel: [phone] [facility] Acute Liver Injury (chief complaint) RUQ painLiver injury 4 Galina Vogel. [address] [place] [address], [address], [place]. tel: [phone] [employer] [address] [place] [address], [id number] , tel: [phone] [facility] examination 4 Bhattachary a Ana. [address] [place], [address], [place]. tel:[phone] [employer] [address] [place] [address], [id number] , tel: [phone] [facility] No Information 4 [facility]. [address] [place], [address], [place]. tel: [phone] PREVENT VISIT NEW AGE 18-39 [employer] [address] [place] [address], [id number] , tel: [phone] [facility] Preventive exam (chief complaint) ROUTINE MEDICAL EXAMSeizure disorderNeed for prophylactic vaccination with unspecified combined vaccine 4 Galina Vogel. [address] [place] [address], [address], [place]. tel: [phone] [employer], [address] [place] [address], [id number] , tel: [phone] Administrati on - [facility] No Information [employer]. , [place], [address], . Family History Family Member Type Diagnosis Age At Onset Mother Problem (finding) seizure disorder Brother Problem (finding) Alive and well Sister Problem (finding) Alive and well Father Problem (finding) Alive and well Immunizations Vaccine Date Status Comments COVID-19 PF PFR administered Source: [facility] Flu Vaccine ([id number]) administered Sour ce: New Immunization Record Flu (age 3 and above) administered Source : New Immunization Record Fluarix (ADULTS 19 - 64 y/o) administered Source: New Immunization Record Tdap administered Source: New Imm unization Record Tdap pending Source: New Imm unization Record Payers Payer name Insurance type Covered libertarian ID Authoriza tion(s) [facility] CI [id number] [facility] CI [id number] [facility] CI [id number] Medicaid [id number] Medicaid [id number] Social History Type Description Quantity Date Captured Comments Alcohol Use Details Unknown Caffeine Use Details Unknown Tobacco Use Status No Information Smoking Status No Information Sex Male Sexual Orientation Choose not to disclose Gender Identity Male Chief Complaint And Reason For Visit No Information Reason For Referral Reason For Referral No Information Plan Of Treatment Date Type Action Status Goal Depression Scree lilia. Due on due [...] Lifestyle education regardin g diet completed Goal Suicide risk ass essment. Due on due Goal ECG. Due on due Goal PHQ9. Due on due Goal Potassium. Due on 8 due Goal Creatinine. Due on due Goal Depression scree lilia. Due on due Goal Dietary manageme nt education, guidance, and counseling completed Goal ECG. Due on due Goal Creatinine. Due on 18 due Goal Suicide risk ass essment. Due on due Goal PHQ9. Due on due Goal Potassium. Due on 8 due Goal Influenza vaccine. Due on due Goal Depression scree lilia. Due on due Goal Suicide risk ass essment. Due on due Goal PHQ9. Due on due Goal ECG. Due on [...] Goal Potassium. Due on 8 due Goal PHQ9. Due on due Goal Suicide risk ass essment. Due on due Goal Influenza vaccine. Due on due Goal ECG. Due on due Goal Potassium. Due on 8 due Goal Creatinine. Due on 18 due Goal Potassium. Due on 7 due Goal Influenza vaccine. Due on due Goal PHQ9. Due on due Goal Suicide risk ass essment. Due on due Goal Creatinine. Due on 17 due Goal ECG. Due on due Goal Potassium. Due on 7 due Goal Creatinine. Due on 17 due Goal Influenza vaccine. Due on due Goal Suicide risk ass essment. Due on due Goal PHQ9. Due on due Goal ECG. Due on due Goal Influenza vaccine. Due on due Goal ECG. Due on due Goal PHQ9. Due on due Goal Suicide risk ass essment. Due on due Goal Potassium. Due on due Goal Creatinine. Due on due Goal Suicide risk ass essment. Due on due Goal ECG. Due on due Goal Creatinine. Due on due Goal Influenza vaccine. Due on due Goal Potassium. Due on due Goal PHQ9. Due on due Goal ECG. Due on due Goal Suicide risk ass essment. Due on due Goal PHQ9. Due on due Goal Influenza vaccine. Due on due Goal Creatinine. Due on due Goal Potassium. Due on due Goal Creatinine. Due on due Goal Influenza vaccine. Due on due Goal Potassium. Due on due Goal Suicide risk ass essment. Due on due Goal PHQ9. Due on due Goal ECG. Due on due Goal Creatinine. Due on due Goal Potassium. Due on due Goal PHQ9. Due on [...] Consult ordered Referral Ordered: Referrals: Psychiatry. Location: [place]. Consult ordered Referral Ordered: Referrals: Cardiology. Diagnostic testing ordered Referral Referred To: Dr. Babatunde Morocho Ordered: Referrals: Psychiatry. Dr. Babatunde Morcoho. Evaluate and treat ordered Referral Ordered: Referrals: Pulmonology. Diagnostic testing ordered Referral Referred To: [facility] Ordered: Referrals: [facility]. [facility] ordered Referral Ordered: Referrals: Neurology. Evaluate and treat ordered Patient Education Low Back Pain: Exercise s completed Unknown Immunization Tdap ordered Future Order: Lab Order HAND RIG HT MIN 3VW (HANDCOMPR), Ordered on: Ordered Future Order: Lab Order CHEST 2 VW ([id number]), Sent on: Sent History Of Present Illness [...] but states he forgot to call [facility] for a ride so needs to change [...] home during this visit. Follow Up of Anxiety The patient reports [...] Pt fol lowing up, he was at [facility] from 10/17/2021- 10/20/2021 for passive SI. He initially went to ED with worsening depression and seizures. 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 Pt was discharged from hospital to crisis stabilization unit at [facility]. He was discharged home on Tuesday10/25/2021. He is back at his Uncle's house. He states he is experiencing some continued depression but no SI. Pt plans to follow-up with [facility] on 11/06/2021 as scheduled. Follow Up of depression Nose bleeds The patient pres ents with a nosebleed that began 1 day ago. The patient is also experiencing headache. The patient denies ear infections, easy bruising, fever, nasal congestion, nausea, persistent cough, rhinitis or sore throat. TV This is a phone visit conducted during the Pandemic. Pt agrees to phone visit with Provider. Comments: Pt jael ls because he had a nosebleed yesterday. Bleeding has since stopped. Comments: This i s a phone visit conducted during the ID- pandemic. Pt agrees to phone visit with [...] s a phone visit conducted during the ID pandemic. Pt agrees to phone visit with provider.Pt scheduled for routine hypertension, pt changed to phone visit as he didn't have a ride. Pt is feeling well, no concerns today. Comments: This i s a phone visit conducted during the ID pandemic. Pt agrees to phone visit with provider.Pt with low back pain on both sides, more to the right side. No radiation. It is worse with prolonged sitting or standing.Pt is using acetaminophen with some effect. Anxiety The patient pres ents with difficulty concentrating, excessive worry and fatigue but denies anxious/fearful thoughts, depressed mood, difficulty falling asleep, difficulty staying asleep, feelings of guilt or paranoia. Back pain Onset: 2 months ago. Location of pain is lower back. Symptoms are aggravated by changing positions, daily activities and standing. Depression Back pain (comments) Pain is wor [...] keep follow-up appts.On 10/02/2020 pt went to [facility] with altered mental status, which resolved with discontinuation of Depakote.Pt was evaluted by neurology inpatient, had EEG normal x 2, thought to have pseudoseizure, recommended stopping seizure medication.Today, pt still seems unsure of the medications he should be taking. States he is missing his Depakote. States the only medication he has is Trazodone. Pt states he does not yet have an appt with [facility].He also endorses issues with memory, states his uncle advised him to mention this to me. Follow Up of Anxiety (comments) This is a phone visit conducted during the COVID- pandemic. Pt agrees to phone visit with provider.Following up with patient after recent hospitalization at [facility] from 10/02/2020- 10/31/2020 for depression and altered [...] keep follow-up appts.On 10/02/2020 pt went to [facility] with altered mental status, which resolved with [...] information: pt consents to phone visit during . pt states he has slept in 3 days, tired during the day, this is first time. hand pain (comments) This visit was conducted by telephone due to COVID pandemic w/ pt consentRight hand pain x 1-2 weeksHand got stuck in car doorNow has pain on right hand on the pinky-finger side (no finger pain)Denies bruising, redness, swellingDenies any cuts or woundsNo purulent dischargeNo numbness or tinglingHas been taking OTC medicines for pain hand pain Onset: 1 week ag o. Location: right hand. Context: there is an injury. Associated symptoms include throbbing pain. Pertinent negatives include bruising and swelling. Hand Dominance: right. Additional information: house door closed on pt's hand. COVID COVID (comments) This is a phone visit conducted during the COVID-19 pandemic. Pt agrees to phone visit with provider.Start: 10:03End: 10:09Pt calls for COVID follow-up, he is feeling well. States he is no longer having symptoms. He tested positive on 12/10/2019. COVID-19 COVID-19 (comments) This is a ph one visit conducted during the COVID-19 pandemic. Pt [...] about possible COVID-19 exposure at a family libertarian this week but did not hear of any confirmed cases. Chest pain/ cough Thoracic back pain (comments) Th is is [...] experiencing pain like this in the past. Thoracic back pain Asthma Asthma (comments) Pt reports a h [...] an appt with them. Follow Up of ER/Seiz ure (comments) Pt presents for ED follow-up. He was seen on 06/08/19 for acute alcohol intoxication and seizure. He states he was out with his friends and he knows it was nor a good situation for him. He is now living with his uncle and feeling safer. He has not has any seizures/ no alcohol since that day. Follow Up of ER/Seizure depression depression (comments) Pt present s for [...] did not go to see neurology in [place] because it is far and he has a lot going on at home. He states he knows he needs to call [facility] once he reschedules his appt.Pt states he [...] and he has not heard back from [facility] neuro clinic to schedule. [facility] has been assisting patient with this [...] Follow Up of ER (comments) was s abundio in ED for seizure activity in october, has had no further seizures since. has neuro consult this month.pt received ECT weekly for his depression with good effect.takes all meds as directed. Follow Up of ER Follow Up of Shortness of breath Episodes occur intermittently. Follow Up of Shortne ss of breath (comments) pt has PFTs scheduled end of this month. uses inhaler occassionally but does endorse continued intermittent dyspnea. Follow Up of Hypertension Risk f actors [...] not been using Zoloft d/t dizziness SE. seizures Additional infor mation: Pt says that that no longer on the Keppra on the Divalproex for seizures. depression (comments) Needs refi ll of medications---Ran out of ALL meds for the depression and the seizures---Pt says that does not have a Psychiatrist though according to chart pt was in hospital 12/2014 for Suicide attempt. denies feeling osf suicidal depression There is improve ment of initial symptoms. The patient reports functioning as very difficult. The patient presents with depressed mood, difficulty falling asleep, diminished interest or pleasure and fatigue but denies feelings of guilt, restlessness or thoughts of or suicide. Follow Up of ED Pt. was at [facility] from 09/12/14-10/31/14 d/c to [facility] in [place], [place] after a suicide attempt. Attd. LYNNE: Rater [phone]. was dx with bipolar, polysubstance dependence, seizure disorder. He does not have outpt. psychiatry appt. for medication mgt. He is on 9 different medications. Acute Liver Injury Pt. was hospi talized at [facility] from 05/06/14-05/08/14 due to abd. 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 Advised pt to discuss with his [facility] diesel technician mechanic what the plan is for new prescriber. [...] to Essential hypertension Continue following w ith [facility]- pt was seeing Dr Krishnan but will need new psychiatrist as he left.Venlafaxine 150mg daily and Trazodone 100mg nightly per psychiatry, refills sent today while pt is waiting on new psychiatrist. Advised pt to discuss with his [facility] [place] diesel technician mechanic what the plan is for new prescriber. 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 Related to Major depressive disorder, single episode, in partial remission Consider PFT's once pt's mood is stabilized.Will discuss with pt at next follow-up. Related to Mild intermittent asthma without complication Acetaminophen as nee dedWill mail pt exercises to try at homeFollow-up TV in 4 weeks to see how pt is feeling. Related to Back pain, unspecified back location, unspecified back pain laterality, unspecified chronicity Continue following w ith [facility]- pt was seeing Dr Krishnan but will [...] nightlyContinue Venlafaxine 75mg daily.Advised pt to call [facility] for intake.Continue following with here. Related to Episode of recurrent major depressive disorder, unspecified depression episode severity Continue Lisinopril 10mg Related to Essential hypertension Continue Lisinopril 10mg Related to Essential hypertension Keppra and Depakote stopped by inpatient neurology as they were likely contributing to confusion. Related to Pseudoseizure Pt possibly appropri ate for [facility] Home Health Team, referral to .Trazodone and [...] current medication regimen, pt to follow-up with psychology professor. Related to Recurrent major depressive disorder, in [...] he was seen by him at the [facility] partial program. Pt will need fasting lipid [...] checks Related to Essential hypertension See Dr. Garcia for y our divalproex refills Related to Epilepsy, unspecified, not intractable, without status epilepticus See Dr. Morocho for re fills on quetiapine and trazodone Related to Major depressive disorder, recurrent, in partial remission Keep taking albutero l when you need it, let us know if you're using it more than twice a week or twice a month at bedtime Related to Mild intermittent asthma without complication Dietary management e ducation, guidance, and counseling Related to Body mass index (BMI) 32.0-32.9, adult Giving encouragement to exercise Related to Body mass index (BMI) 32.0-32.9, adult DO NOT MISS NEURO APPOINTMENT. R elated to Epilepsy, unspecified, not intractable, with status epilepticus Goal: Increase activ ity/exercise Goal: Maintain healthy diet Related to Obesity, unspecified ipratroprium 2-3 nathan es daily.saline nasal spray [...] 50mg QAM and afternoon as needed.referral to [facility]. Related to Bipolar disorder, unspecified Dietary [...] unspecified continue current med ications.warm handoff to [facility] Jerome to assist in getting patient in with new neurology.no recent seizure d/o. Related to Epilepsy, unspecified, not intractable, without status epilepticus continue albuterol.w e will get the PFT results and make adjustments accordingly. Related to Shortness of breath continue trazodone a nd quetiapine.continue f/u with provider for ECT. Related to Bipolar disorder, unspecified continue divaloprex. call [facility] neurology today to reschedule --> [phone]. Related to Epilepsy, unspecified, not intractable, without status epilepticus continue quetiapine and trazadone.continue ECT as you are reporting continued positive effect from this treatment. Related to Bipolar disorder, unspecified continue divaloprex TID.consult with neuro this month.make sure to keep this appointment.report any further seizure activity. 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 R elated to Rash of hands call to make neuro a ppt:[facility] [address] [place], [place] [id number] current meds. Related to Epilepsy, unspecified, not [...] Related to Essential hypertension continue f/u with so yobany ann.continue seroquel --> refilled today. Related to [...] the ones that were filled at Pharmacy recentlyagain pt signed the from to get the notes from [facility] Related to Depression Assessments Type Assessment Date No Information Patient Care Teams Name Effective Dates (start - stop) Status Members No Information
--- OUTSIDE RECORDS SUMMARY | 2024-09-07 14:41 | XMS_ITS | Encounter Summary ---
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 Social History Tobacco Use Types Packs/Day Years [...] AMMONIA Routine 08/10/2024 6:20 AM EST Other termite control technician (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 documented in this encounter Results * (ABNORMAL) Ammonia (08/10/2024 6:20 AM EST) Ammonia 50(H) 11 - 35 mcmol/L LAB CHEMISTRY METHOD 08/10/2024 7:18 AM EST [facility] Blood Venous blood specimen / Unknown 08/10/2024 6:20 AM EST 08/10/2024 6:51 AM EST us Antonio Mcmillan MD LAB BLOOD ORDERABLES Final Resul t [facility] [address] [place] [address], documented in this encounter Visit Diagnoses Diagnosis Other fdc (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 documented in this encounter Care Teams Ad Operations Intern Relationship Specialty Start Date End Date Antonio Mcmillan MD [address] [place] [address] Dr [address] CHINO Manzanares PCP - General Internal Medicine 08/10/24 documented as of this encounter
--- OUTSIDE RECORDS SUMMARY | 2024-09-07 14:41 | XMS_ITS | Continuity of Care Document ---
Author Organization [facility] Address [address] [place] [address] Phone Care Team Providers Care Billing Analyst Name Role Phone Provider, Conversion Unavailable Unavailable Advance Directives Directive Yes / No Effective Date File Name No Information Encounters Encounter Description Practice Location Reason(s) For Visit Diagnoses Date Provider Providers Copied on Encounter [facility], [address] [place] [address], [id number], [place] tel:[phone] [facility] Behavioral Health/EP No Information Provider Conversion . . Family History Family Member Type Diagnosis Age At Onset No Information Payers Payer name Insurance type Covered constitution party ID Authoriza tion(s) No Information Social History [...]
== END 2024-09-07 13:28 | disposition home or self-care (01) ==
LOC: HO.HPSW 13:01
PROVIDERS: PCP Hospitalist; Visit Provider Nurse Practitioner Family
DX: J96.10 Chronic respiratory failure, unspecified whether with hypoxia or hypercapnia (principal); J45.40 Moderate persistent asthma, uncomplicated; J98.6 Disorders of diaphragm; Z99.81 Dependence on supplemental oxygen; G56.80 Other specified mononeuropathies of unspecified upper limb
CPT/HCPCS: 99214

== ENCOUNTER → 2024-09-07 13:01 | Outpatient (BNVA) | payer MEDICAID, SELFPAY | PROVIDERS: PCP Hospitalist; Visit Provider Nurse Practitioner Family | DX: J96.10 Chronic respiratory failure, unspecified whether with hypoxia or hypercapnia (principal); J45.40 Moderate persistent asthma, uncomplicated; J98.6 Disorders of diaphragm; G56.80 Other specified mononeuropathies of unspecified upper limb; Z99.81 Dependence on supplemental oxygen | CPT/HCPCS: 99212 ==

== ENCOUNTER 2024-09-20 13:49 | Outpatient (REF) | payer MEDICAID, SELFPAY ==
--- NOTE | ~2024-09-20 | XR_ITS ---
EXAMINATION: XR CHEST 2 VIEWS HISTORY: R09.02 - Hypoxemia COMPARISON: Comparison is made with the prior examination dated 12/29/2023. FINDINGS: PA and lateral views of the chest are submitted. Again seen is elevation of the right hemidiaphragm with adjacent subsegmental atelectasis versus scarring. There is no pleural effusion or pneumothorax. There is prominence of the pulmonary vasculature without significant change. The heart is normal in size. There are calcifications of the right coracoacromial ligament. XR/XR chest 2V IMPRESSION: 1. Elevated right hemidiaphragm with adjacent subsegmental atelectasis versus scarring without change. 2. Pulmonary vascular prominence which may be a chronic finding. Electronically signed by: Abdullahi Blue MD 09/21/2024 08:20 AM EDT
== END 2024-09-20 13:50 | disposition home or self-care (01) ==
LOC: HO.XRAY 13:49
PROVIDERS: PCP Hospitalist; Visit Provider Hospitalist
DX: R09.02 Hypoxemia (principal)
CPT/HCPCS: 71046

== ENCOUNTER → 2024-09-20 13:54 | Outpatient (BNV) | payer MEDICAID, SELFPAY | PROVIDERS: PCP Hospitalist; Visit Provider Radiology Diagnostic Radiology | DX: J98.6 Disorders of diaphragm (principal) | CPT/HCPCS: 71046 ==

== ENCOUNTER 2024-10-01 11:47 | Outpatient (AMB) | payer MEDICAID, SELFPAY ==
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
--- OUTSIDE RECORDS SUMMARY | 2024-10-01 13:34 | XMS_ITS | Encounter Summary ---
Author Organization [facility] Address [address] [place] [address] Care Team Providers Care Healthcare Marketer Name Role Phone Antonio Mcmillan MD Primary Care Provider [phone] Encounter Details Date Type Department Care Team (Late st Contact Info) Description 08/10/2024 Lab Requisition [facility] [address] [place] [address] Antonio Mcmillan MD [address] [place] [address] [address] [place], [place] Other nursing home (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 Social History Tobacco Use [...] AMMONIA Routine 08/10/2024 6:20 AM EST Other nursing home (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 documented in this encounter Results * (ABNORMAL) Ammonia (08/10/2024 6:20 AM EST) Ammonia 50(H) 11 - 35 mcmol/L LAB CHEMISTRY METHOD 08/10/2024 7:18 AM EST [facility] Blood Venous blood specimen / Unknown 08/10/2024 6:20 AM EST 08/10/2024 6:51 AM EST us Antonio Mcmillan MD LAB BLOOD ORDERABLES Final Resul t [facility] [address] [place] [address], documented in this encounter Visit Diagnoses Diagnosis Other die 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
--- OUTSIDE RECORDS SUMMARY | 2024-10-01 13:34 | XMS_ITS | Clinical Summary ---
Author Organization [address] [facility] Address [address] [place] [address] Phone Care Team Providers Care Copper Roller Handler Printing Name Role Phone Antonio Mcmillan MD Primary Care Provider [phone] Encounters Date Type Department Care Team Description 09/11/2024 Lab Requisition [facility] Lab [address] [place] [address] Antonio Mcmillan MD Diffuse traumatic brain injury with loss of consciousness of unspecified duration, sequela (CMS/HCC) 08/10/2024 Lab Requisition [facility] Lab [address] [place] [address] Antonio Mcmillan MD Other exterminator (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 from Last 3 Months [...] of 3 - 19+ 3-dose series) 2006 HIV Screening 07/29/2023 Hepatitis C Screening 07/29/2023 Social Influencers of Health Screening 07/29/2023 COVID-19 Vaccine (1 - 2023-2 5 season) 2024 Influenza Vaccine (#1) 2024 Depression Screening 02/16/2025 02/17/2024 Cholesterol Screening (Lipid Panel) 09/11/2029 09/11/2024 HIB Vaccines Aged Out No longer eligi [...] Diagnosis Comments CBC WITH AUTO DIFFERENTIAL Routine 09/11/2024 6:50 AM EDT Diffuse traumatic brain injury with loss of consciousness of unspecified duration, sequela (CMS/HCC) THYROID STIMULATING HORMONE Routine 09/11/2024 6:50 AM EDT Diffuse traumatic brain injury with loss of consciousness of unspecified duration, sequela (CMS/HCC) THYROXINE FREE Routine 09/11/2024 6:50 AM EDT Diffuse traumatic brain injury with loss of consciousness of unspecified duration, sequela (CMS/HCC) VALPROIC ACID LEVEL, TOTAL Routine 09/11/2024 6:50 AM EDT Diffuse traumatic brain injury with loss of consciousness of unspecified duration, sequela (CMS/HCC) CBC AND DIFFERENTIAL Routine 09/11/2024 6:50 AM EDT Diffuse traumatic brain injury with loss of consciousness of unspecified duration, sequela (CMS/HCC) AMMONIA Routine 09/11/2024 6:50 AM EDT Diffuse traumatic brain injury with loss of consciousness of unspecified duration, sequela (CMS/HCC) LIPID PANEL WITH REFLEX TO DIRECT LDL Routine 09/11/2024 6:50 AM EDT Diffuse traumatic brain injury with loss of consciousness of unspecified duration, sequela (CMS/HCC) COMPREHENSIVE METABOLIC PANEL Routine 09/11/2024 6:50 AM EDT Diffuse traumatic brain injury with loss of consciousness of unspecified duration, sequela (CMS/HCC) AMMONIA Routine 08/10/2024 6:20 AM EST Other custodial (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 from Last 3 Months Results * (ABNORMAL) Lipid panel with reflex to direct LDL (09/11/2024 6:50 AM EDT) Cholesterol 138 0 - 200 mg/dL LAB CHEMISTRY METHOD 09/11/2024 8:25 AM EDT [facility] LAB Triglycerides 200(H) 0 - 150 mg/dL LAB CHEMISTRY METHOD 09/11/2024 8:25 AM T [facility] LAB HDL 30(L) >=40 mg/dL LAB CHEMISTRY METHOD 09/11/2024 8:25 AM EDT [facility] LAB LDL Calculated 68 0 - 100 mg/dL LAB CHEMISTRY METHOD 09/11/2024 8:25 AM EDT [facility] LAB VLDL Cholesterol Carter 40 mg/dL LAB CHEMISTRY METHOD 09/11/2024 8:25 AM EDT [facility] LAB Non HDL Chol. (LDL+VLDL) 108 <145 mg/dL LAB CHEMISTRY METHOD 09/11/2024 8:25 AM EDT [facility] LAB Chol/HDL Ratio 4.6(H) 0.0 - 4.4 LAB CHEMISTRY METHOD 09/11/2024 8:25 AM T [facility] LAB Blood Venous blood specimen / Unknown 09/11/2024 6:50 AM EDT 09/11/2024 7:44 AM EDT us Antonio Mcmillan MD LAB BLOOD ORDERABLES Final Resul t [facility] LAB [address] [place] [address], * (ABNORMAL) CBC auto differential (09/11/2024 6:50 AM EDT) [facility] WBC 6.5 4.8 - 10.8 K/mcL LAB HEMETOLOGY METHOD 09/11/2024 8:44 AM EDT [facility] LAB RBC 5.40 4.50 - 5.50 M/mcL LAB HEMETOLOGY METHOD 09/11/2024 8:44 AM EDT [facility] LAB Hemoglobin 15.9 13.5 - 17.5 g/dL LAB HEMETOLOGY METHOD 09/11/2024 8:44 AM EDT [facility] LAB Hematocrit 50.2 42.0 - 54.0 % LAB [facility]OLOGY [facility]24 [facility] MCV 92.3 79.0 - 98.0 FL LAB [facility]OLOGY METHOD [facility]24 8[facility] MCH 29.2 27.0 - 32.0 pcg LAB HEMETOLOGY METHOD 09/11/2024 8:44 AM [facility] LAB MCHC 31.7(L) 32.0 - 37.0 g/dL LAB HEMETOLOGY METHOD 09/11/2024 8:44 AM EDT [facility] LAB RDW 14.4 11.0 - 15.0 % LAB HEMETOLOGY METHOD 09/11/2024 8:44 AM EDT [facility] LAB Platelets 09/11/2024 8:44 AM EDT [facility] LAB Comment:Not measured. Platel ets appear adequate but clumped MPV 10.8 7.0 - 11.0 FL LAB HEMETOLOGY METHOD 09/11/2024 8:44 AM EDT [facility] LAB NRBC 0.0 <1.0 % LAB HEMETOLOGY METHOD 09/11/2024 8:44 AM [facility] LAB NRBC Absolute 0.00 <0.10 K/mcL LAB HEMETOLOGY METHOD 09/11/2024 8:44 AM [facility] LAB Neutrophils Relative 38.9 % LAB HEMETOLOGY METHOD 09/11/2024 8:44 AM [facility] LAB Lymphocytes Relative 51.5 % LAB HEMETOLOGY METHOD 09/11/2024 8:44 AM [facility] LAB Monocytes Relative 8.2 % LAB HEMETOLOGY METHOD 09/11/2024 8:44 AM [facility] LAB Eosinophils Relative 0.6 % LAB HEMETOLOGY METHOD 09/11/2024 8:44 AM [facility] Basophils Relative 0.5 % LAB HEMETOLOGY METHOD 09/11/2024 8:44 AM [facility] LAB Immature Granulocytes Relative 0.3 % LAB HEMETOLOGY METHOD 09/11/2024 8:44 AM [facility] LAB Neutrophils Absolute 2.52 1.50 - 7.00 K/mcL LAB HEMETOLOGY METHOD 09/11/2024 8:44 AM [facility] LAB Lymphocytes Absolute 3.33 1.00 - 5.00 K/mcL LAB HEMETOLOGY METHOD 09/11/2024 8:44 AM [facility] Monocytes Absolute 0.53 0.20 - 1.00 K/mcL LAB HEMETOLOGY METHOD 09/11/2024 8:44 AM [facility] Eosinophils Absolute 0.04 0.00 - 0.50 K/mcL LAB HEMETOLOGY METHOD 09/11/2024 8:44 AM [facility] LAB Basophils Absolute 0.03 0.00 - 0.20 K/mcL LAB HEMETOLOGY METHOD 09/11/2024 8:44 AM [facility] LAB Immature Granulocytes Absolute 0.02 0.00 - 0.03 K/mcL LAB HEMETOLOGY METHOD 09/11/2024 8:44 AM EDT [facility] LAB Blood Venous blood specimen / Unknown 09/11/2024 6:50 AM EDT 09/11/2024 7:44 AM EDT us Antonio Mcmillan MD LAB BLOOD ORDERABLES Final Resul t Performing Organization Address City/[facility]/ZIP Co de Phone Number [facility] LAB [address] [place] [address], [place] [phone] * Thyroid stimulating hormone (09/11/2024 6:50 AM EDT) TSH 2.30 0.40 - 4.00 mcIU/mL LAB CHEMISTRY METHOD 09/11/2024 8:29 AM EDT [facility] Blood Venous blood specimen / Unknown 09/11/2024 6:50 AM EDT 09/11/2024 7:44 AM EDT us Antonio Mcmillan MD LAB BLOOD ORDERABLES Final Resul t Performing Organization Address [facility] de Phone Number [facility] LAB [address] [place] [address], [place] [phone] * Thyroxine free (09/11/2024 6:50 AM EDT) Free T4 0.84 0.70 - 1.80 ng/dL LAB CHEMISTRY METHOD 09/11/2024 8:29 AM EDT [facility] Blood Venous blood specimen / Unknown 09/11/2024 6:50 AM EDT 09/11/2024 7:44 AM EDT us Antonio Mcmillan MD LAB BLOOD ORDERABLES Final Resul t Performing Organization Address City/[facility]/ZIP Co de Phone Number [facility] LAB [address] [place] [address], [place] [phone] * (ABNORMAL) Ammonia (09/11/2024 6:50 AM EDT) Only the most recent of2 resultswithin the time period is included. Pathologist [facility] Ammonia 53(H) 11 - 35 mcmol/L LAB CHEMISTRY METHOD 09/11/2024 8:08 AM EDT [facility] Blood Venous blood specimen / Unknown 09/11/2024 6:50 AM EDT 09/11/2024 7:44 AM EDT us Antonio Mcmillan MD LAB BLOOD ORDERABLES Final Resul t Performing Organization Address City/[facility]/ZIP Co de Phone Number [facility] [address] [place] [address], [place] [phone] * Valproic acid level, total (09/11/2024 6:50 AM EDT) Pathologist [facility] Valproic Acid, Total 67 50 - 100 mcg/mL LAB CHEMISTRY METHOD 09/11/2024 8:25 AM EDT [facility] Blood Venous blood specimen / Unknown 09/11/2024 6:50 AM EDT 09/11/2024 7:44 AM EDT us Antonio Mcmillan MD LAB BLOOD ORDERABLES Final Resul t Performing Organization Address [facility]/ZIP Co de Phone Number [facility] [address] [place] [address], [place] [phone] * (ABNORMAL) Comprehensive metabolic panel (09/11/2024 6:50 AM EDT) Pathologist [facility] Sodium 140 133 - 145 mmol/L LAB CHEMISTRY METHOD 09/11/2024 8:25 AM EDT [facility] Potassium 4.3 3.5 - 5.5 mmol/L LAB CHEMISTRY METHOD 09/11/2024 8:25 AM EDT [facility] LAB Comment:Hemolysis present Chloride 103 96 - 110 mmol/L LAB CHEMISTRY METHOD 09/11/2024 8:25 AM [facility] CO2 32 21 - 32 mmol/L LAB CHEMISTRY METHOD 09/11/2024 8:25 AM [facility] Anion Gap 5 3 - 11 LAB CHEMISTRY METHOD 09/11/2024 8:25 AM [facility] Glucose 115(H) 70 - 100 mg/dL LAB CHEMISTRY METHOD 09/11/2024 8:25 AM [facility] BUN 9 5 - 25 mg/dL LAB CHEMISTRY METHOD 09/11/2024 8:25 AM [facility] LAB Creatinine 0.65(L) 0.70 - 1.30 mg/dL LAB CHEMISTRY METHOD 09/11/2024 8:25 AM [facility] LAB eGFR 124 >=60 mL/min/1. 73m2 LAB CHEMISTRY METHOD 09/11/2024 8:25 AM [facility] LAB Comment:Calculation based on the??Chronic Kidney Disease Epidemiology Collaboration (CKD-EPI) equation refit??without adjustment for race. BUN/Creatinine Ratio 13.8 LAB CHEMISTRY METHOD 09/11/2024 8:25 AM [facility] Calcium 8.9 8.5 - 10.5 mg/dL LAB CHEMISTRY METHOD 09/11/2024 8:25 AM [facility] AST (SGOT) 54(H) 10 - 42 unit/L LAB CHEMISTRY METHOD 09/11/2024 8:25 AM [facility] LAB Comment:Hemolysis present ALT (SGPT) 65(H) 10 - 60 unit/L LAB CHEMISTRY METHOD 09/11/2024 8:25 AM [facility] Alkaline Phosphatase 66 42 - 121 unit/L LAB CHEMISTRY METHOD 09/11/2024 8:25 AM [facility] Total Protein 6.6 6.0 - 8.0 g/dL LAB CHEMISTRY METHOD 09/11/2024 8:25 AM EDT [facility] Albumin 3.3 3.2 - 5.0 g/dL LAB CHEMISTRY METHOD 09/11/2024 8:25 AM EDT [facility] ([facility]) [facility] Total Bilirubin 0.5 0.0 - 1.4 mg/dL LAB CHEMISTRY METHOD 09/11/2024 8:25 AM EDT [facility] ([facility] Blood Venous blood specimen / Unknown 09/11/2024 6:50 AM EDT 09/11/2024 7:44 AM EDT us Antonio Mcmillan MD LAB BLOOD ORDERABLES Final Resul t [facility] ([facility]) [facility] LAB [address] [place] [address], [place] [phone] from Last 3 Months Care Teams Copper Roller Handler Printing Relationship Specialty Start Date End Date Antonio Mcmillan MD [address] [place] [address] Dr [address] [place], [place] PCP - General Internal Medicine 08/10/24
--- OUTSIDE RECORDS SUMMARY | 2024-10-01 13:34 | XMS_ITS | Continuity of Care Document ---
Author Organization [facility] Care Team Address [address] [place] [address] Phone Care Team Providers Care Beekeeper Farmer Name Role Phone Provider1, First Unavailable Unavailable Advance Directives Directive Yes / No Effective Date File Name No Information Encounters Encounter Description Practice Location Reason(s) For Visit Diagnoses Date Provider Providers Copied on Encounter [facility] Team, [address] [place] [address], [facility], [place] tel:[phone] [facility] No Information Provider1 First. . Family History [...]
--- OUTSIDE RECORDS SUMMARY | 2024-10-01 13:34 | XMS_ITS | Encounter Summary ---
Author Organization [employer] Address [address] [place] [address] Care Team Providers Care Supervisor Printing Shop Name Role Phone Antonio Mcmillan MD Primary Care Provider [phone] Encounter Details Date Type Department Care Team (Late st Contact Info) Description 09/11/2024 Lab Requisition [facility] Lab [address] [facility] [place] [address] Antonio Mcmillan MD [address] [place] [address] [address] [place], [place] Diffuse traumatic brain injury with loss [...] Procedure Name Priority Date/Time Associated Diagnosis Comments LIPID PANEL WITH REFLEX TO DIRECT LDL Routine 09/11/2024 6:50 AM EDT Diffuse traumatic brain injury with loss of consciousness of unspecified duration, sequela (CMS/HCC) CBC WITH AUTO DIFFERENTIAL Routine 09/11/2024 6:50 [...] encounter Results * (ABNORMAL) CBC auto differential (09/11/2024 6:50 AM EDT) WBC 6.5 4.8 - 10.8 K/mcL LAB HEMETOLOGY METHOD 09/11/2024 8:44 AM [facility] LAB RBC 5.40 4.50 - 5.50 M/mcL LAB HEMETOLOGY METHOD 09/11/2024 8:44 AM [facility] LAB Hemoglobin 15.9 13.5 - 17.5 g/dL LAB HEMETOLOGY METHOD 09/11/2024 8:44 AM [facility] LAB Hematocrit 50.2 42.0 - 54.0 % LAB HEMETOLOGY METHOD 09/11/2024 8:44 AM [facility] LAB MCV 92.3 79.0 - 98.0 FL LAB HEMETOLOGY METHOD 09/11/2024 8:44 AM [facility] LAB MCH 29.2 27.0 - 32.0 pcg LAB HEMETOLOGY METHOD 09/11/2024 8:44 AM [facility] LAB MCHC 31.7(L) 32.0 - 37.0 g/dL LAB HEMETOLOGY METHOD 09/11/2024 8:44 AM [facility] LAB RDW 14.4 11.0 - 15.0 % LAB HEMETOLOGY METHOD 09/11/2024 8:44 AM [facility] LAB Platelets 09/11/2024 8:44 AM [facility] LAB Comment:Not measured. Platel ets appear adequate but clumped MPV 10.8 7.0 - 11.0 FL LAB HEMETOLOGY METHOD 09/11/2024 8:44 AM [facility] LAB NRBC 0.0 <1.0 % LAB HEMETOLOGY METHOD 09/11/2024 8:44 AM [facility] LAB NRBC Absolute 0.00 <0.10 K/mcL LAB HEMETOLOGY METHOD 09/11/2024 8:44 AM [facility] LAB Neutrophils Relative 38.9 % LAB HEMETOLOGY METHOD 09/11/2024 8:44 AM [facility] Lymphocytes Relative 51.5 % LAB HEMETOLOGY METHOD 09/11/2024 8:44 AM [facility] Monocytes Relative 8.2 % LAB HEMETOLOGY METHOD 09/11/2024 8:44 AM [facility] Eosinophils Relative 0.6 % LAB HEMETOLOGY METHOD 09/11/2024 8:44 AM [facility] Basophils Relative 0.5 % LAB HEMETOLOGY METHOD 09/11/2024 8:44 AM [facility] LAB Immature Granulocytes Relative 0.3 % LAB HEMETOLOGY METHOD 09/11/2024 8:44 AM [facility] LAB Neutrophils Absolute 2.52 1.50 - 7.00 K/mcL LAB HEMETOLOGY METHOD 09/11/2024 8:44 AM [facility] LAB Lymphocytes Absolute 3.33 1.00 - 5.00 K/mcL LAB HEMETOLOGY METHOD 09/11/2024 8:44 AM EDT [facility] LAB Monocytes Absolute 0.53 0.20 - 1.00 K/[facility] LAB HEMETOLOGY METHOD 09/11/2024 8:44 AM EDT [facility] LAB Eosinophils Absolute 0.04 0.00 - 0.50 K/[facility] LAB HEMETOLOGY METHOD 09/11/2024 8:44 AM EDT [facility] LAB Basophils Absolute 0.03 0.00 - 0.20 K/[facility] LAB HEMETOLOGY METHOD 09/11/2024 8:44 AM EDT [facility] LAB Immature Granulocytes Absolute 0.02 0.00 - 0.03 K/[facility] LAB HEMETOLOGY METHOD 09/11/2024 8:44 AM EDT [facility] LAB Blood Venous blood specimen / Unknown 09/11/2024 6:50 AM EDT 09/11/2024 7:44 AM EDT us Antonio Mcmillan MD LAB BLOOD ORDERABLES Final Resul t Performing Organization Address City/[facility]/ZIP Co de Phone Number [facility] [address] [place] [address], [place] [phone] * Thyroid stimulating hormone (09/11/2024 6:50 AM EDT) TSH 2.30 0.40 - 4.00 mcIU/mL LAB CHEMISTRY METHOD 09/11/2024 8:29 AM EDT [facility] Blood Venous blood specimen / Unknown 09/11/2024 6:50 AM EDT 09/11/2024 7:44 AM EDT us Antonio Mcmillan MD LAB BLOOD ORDERABLES Final Resul t Performing Organization Address City/[facility]/ZIP Co de Phone Number [facility] [address] [place] [address], [place] [phone] * Thyroxine free (09/11/2024 6:50 AM EDT) Free T4 0.84 0.70 - 1.80 ng/dL LAB CHEMISTRY METHOD 09/11/2024 8:29 AM EDT [facility] Blood Venous blood specimen / Unknown 09/11/2024 6:50 AM EDT 09/11/2024 7:44 AM EDT us Antonio Mcmillan MD LAB BLOOD ORDERABLES Final Resul t Performing Organization Address [facility] de Phone Number [facility] [address] [place] [address], [place] [phone] * Valproic acid level, total (09/11/2024 6:50 AM EDT) Pathologist [facility] Valproic Acid, Total 67 50 - 100 mcg/mL LAB CHEMISTRY METHOD 09/11/2024 8:25 AM EDT [facility] Blood Venous blood specimen / Unknown 09/11/2024 6:50 AM EDT 09/11/2024 7:44 AM EDT us Antonio Mcmillan MD LAB BLOOD ORDERABLES Final Resul t Performing Organization Address [facility] de Phone Number [facility] [address] [place] [address], [place] [phone] * (ABNORMAL) Ammonia (09/11/2024 6:50 AM EDT) Ammonia 53(H) 11 - 35 mcmol/L LAB CHEMISTRY METHOD 09/11/2024 8:08 AM EDT [facility] Blood Venous blood specimen / Unknown 09/11/2024 6:50 AM EDT 09/11/2024 7:44 AM EDT us Antonio Mcmillan MD LAB BLOOD ORDERABLES Final Resul t Performing Organization Address City/[facility]/ZIP Co de Phone Number [facility] [address] [place] [address], [place] [phone] * (ABNORMAL) Lipid panel with reflex to direct LDL (09/11/2024 6:50 AM EDT) Cholesterol 138 0 - 200 mg/dL LAB CHEMISTRY METHOD 09/11/2024 8:25 AM EDT [facility] Triglycerides 200(H) 0 - 150 mg/dL LAB CHEMISTRY METHOD 09/11/2024 8:25 AM EDT [facility] HDL 30(L) >=40 mg/dL LAB CHEMISTRY METHOD 09/11/2024 8:25 AM EDT [facility] LDL Calculated 68 0 - 100 mg/dL LAB CHEMISTRY METHOD 09/11/2024 8:25 AM EDT [facility] VLDL Cholesterol Carter 40 mg/dL LAB CHEMISTRY METHOD 09/11/2024 8:25 AM EDT [facility] Non HDL Chol. (LDL+VLDL) 108 <145 mg/dL LAB CHEMISTRY METHOD 09/11/2024 8:25 AM EDT [facility] Chol/HDL Ratio 4.6(H) 0.0 - 4.4 LAB CHEMISTRY METHOD 09/11/2024 8:25 AM EDT [facility] Blood Venous blood specimen / Unknown 09/11/2024 6:50 AM EDT 09/11/2024 7:44 AM EDT us Antonio Mcmillan MD LAB BLOOD ORDERABLES Final Resul t [facility] [address] [place] [address], [place] [phone] * (ABNORMAL) Comprehensive metabolic panel (09/11/2024 6:50 AM EDT) Sodium 140 133 - 145 mmol/L LAB CHEMISTRY METHOD 09/11/2024 8:25 AM EDT [facility] Potassium 4.3 3.5 - 5.5 mmol/L LAB CHEMISTRY METHOD 09/11/2024 8:25 AM [facility] Comment:Hemolysis present Chloride 103 96 - 110 mmol/L LAB CHEMISTRY METHOD 09/11/2024 8:25 AM [facility] CO2 32 21 - 32 mmol/L LAB CHEMISTRY METHOD 09/11/2024 8:25 AM [facility] Anion Gap 5 3 - 11 LAB CHEMISTRY METHOD 09/11/2024 8:25 AM [facility] Glucose 115(H) 70 - 100 mg/dL LAB CHEMISTRY METHOD 09/11/2024 8:25 AM [facility] BUN 9 5 - 25 mg/dL LAB CHEMISTRY METHOD 09/11/2024 8:25 AM [facility] Creatinine 0.65(L) 0.70 - 1.30 mg/dL LAB CHEMISTRY METHOD 09/11/2024 8:25 AM [facility] eGFR 124 >=60 mL/min/1. 73m2 LAB CHEMISTRY METHOD 09/11/2024 8:25 AM [facility] Comment:Calculation based on the??Chronic Kidney Disease Epidemiology Collaboration (CKD-EPI) equation refit??without adjustment for race. BUN/Creatinine Ratio 13.8 LAB CHEMISTRY METHOD 09/11/2024 8:25 AM [facility] Calcium 8.9 8.5 - 10.5 mg/dL LAB CHEMISTRY METHOD 09/11/2024 8:25 AM [facility] AST (SGOT) 54(H) 10 - 42 unit/L LAB CHEMISTRY METHOD 09/11/2024 8:25 AM [facility] Comment:Hemolysis present ALT (SGPT) 65(H) 10 - 60 unit/L LAB CHEMISTRY METHOD 09/11/2024 8:25 AM [facility] Alkaline Phosphatase 66 42 - 121 unit/L LAB CHEMISTRY METHOD 09/11/2024 8:25 AM EDT [facility] Total Protein 6.6 6.0 - 8.0 g/dL LAB CHEMISTRY METHOD 09/11/2024 8:25 AM EDT [facility] Albumin 3.3 3.2 - 5.0 g/dL LAB CHEMISTRY METHOD 09/11/2024 8:25 AM EDT [facility] Total Bilirubin 0.5 0.0 - 1.4 mg/dL LAB CHEMISTRY METHOD 09/11/2024 8:25 AM EDT [facility] Blood Venous blood specimen / Unknown 09/11/2024 6:50 AM EDT 09/11/2024 7:44 AM EDT us Antonio Mcmillan MD LAB BLOOD ORDERABLES Final Resul t [facility] [address] [place] [address], documented in this encounter Visit Diagnoses Diagnosis Diffuse traumatic brain injury with loss of consciousness of unspecified duration, sequela (CMS/HCC) documented in this encounter Care Teams Supervisor Printing Shop Relationship Specialty Start Date End Date Antonio Mcmillan MD [address] [place] [address] Dr [address] [place], [place] PCP - General Internal Medicine 08/10/24 documented as of this encounter
--- OUTSIDE RECORDS SUMMARY | 2024-10-01 13:34 | XMS_ITS | Continuity of Care Document ---
Author Organization [facility] Address [address] [place] [address] Phone Care Team Providers Care Binding Machine Operator Name Role Phone Provider, Conversion Unavailable Unavailable Advance Directives Directive Yes / No Effective Date File Name No Information Encounters Encounter Description Practice Location Reason(s) For Visit Diagnoses Date Provider Providers Copied on Encounter [facility], [address] [place] [address], [id number], [place] tel:[phone] [facility] Behavioral Health/EP No Information Provider Conversion . . Family History Family Member Type Diagnosis Age At Onset No Information Payers Payer name Insurance type Covered alliance party ID Authoriza tion(s) No Information Social [...]
--- OUTSIDE RECORDS SUMMARY | 2024-10-01 13:34 | XMS_ITS | Continuity of Care Document ---
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 [address] [place], [place], [id number], [place]. tel:[phone] [facility], [address] [place] [address], [id number] , tel:[phone] [email or web address] No Information 2 Nain Kathy. [address] [place], [place], [id number], [place]. tel:[phone] [facility], [address] [place], [place], [id number] , tel:[phone] [facility] Major depressv disorder, single episode, in partial remis 2 Adrien Muniz. [address] [place], [address], [place]. tel:[phone] Referring Provider: Kathy Gillette, [address] [place], [address] . tel:[phone] Indiv.Psycho therapy 30 Minutes(16-3 7) [facility] [address] [place] [address], [id number] , [place] tel: [phone] [facility] Major depressv disorder, single episode, in partial remis 2 Adrien Muniz. [address] [place], [address], [place]. tel: [phone] Referring Provider: Kathy Gillette, [address] [place] [address], [address] . tel:[phone] OFFICE VISIT ESTAB PT 30-39 MIN [facility] [address] [place] [address], [id number] , [place] tel: [phone] [facility] Depression (chief complaint)anx iety (chief complaint)tv (chief complaint) Essential hypertensionM ild intermittent asthma without complicationP seudoseizureS evere episode of recurrent major depressive disorder, without psychotic featuresSubst ance abuse 2 Nain Chavez. [address] [place], [place], [id number], [place]. tel: [phone] Referring Provider: Kathy Gillette, [address] [place] [address], [address] . tel:[phone] OFFICE/OUTPA TIENT VISIT EST PT 20-29 MINS [facility] [address] [place] [address], [id number] , [place] tel: [phone] [facility] Follow Up of Anxiety (chief complaint)Fol low Up of depression (chief complaint)Fol low Up of TV (chief complaint) Pseudoseizure Severe episode of recurrent major depressive disorder, without psychotic featuresSubst ance abuseEssentia l hypertensionM ild intermittent asthma without complication 2 Nain Kathy. [address] [place], [place], [id number], [place]. tel: [phone] Referring Provider: Kathy Gillette, [address] [place] [address], [address] . tel:[phone] [facility] [address] [place] [address], [id number] , [place] tel: [phone] [facility] Dental caries on smooth surface penetrating into dentinEncount er for other general examinationEn counter for screening for dental disorders 2 Jimmy Hernandez. [address] [place] [address], [id number], [place]. tel:[phone] Referring Provider: Mary Marquez, [address] [place] [address], [address] . tel:[phone] [facility] [address] [place] [address], [id number] , [place] tel:[phone] [facility] Major depressv disorder, single episode, in partial remis 2 Adrien Muniz. [address] [place] [address], [address], [place]. tel:[phone] Referring Provider: Flavio Ugalde, [address] [place] [address], [address]. tel:[phone] Indiv.Psycho therapy 30 Minutes(16-3 7) [facility] [address] [place] [address], [id number] , [place] tel: [phone] [facility] Major depressv disorder, single episode, in partial remis Sep- 2 Adrien Muniz. [address] [place] [address], [address], [place]. tel: [phone] Referring Provider: Flavio Ugalde, [address] [place] [address], [address]. tel:[phone] Indiv.Psycho therapy 30 Minutes(16-3 7) [facility] [address] [place] [address], [id number] , [place] tel: [phone] [facility] Major depressv disorder, single episode, in partial remis 2 Adrien Muniz. [address] [place] [address], [address], [place]. tel:[phone] Referring Provider: Flavio Ugalde, [address] [place] [address], [facility]. tel:[phone] OFFICE VISIT ESTAB PT 10-19 MINS [facility] [address] [place] [address], [id number] , [place] tel: [phone] [facility] Nose bleeds (chief complaint)TV (chief complaint) Epistaxis 2 Nain Kathy. [address] [place], [place], [id number], [place]. tel:[phone] Referring Provider: Kathy Gillette, [address] [place], [address] . tel:[phone] OFFICE/OUTPA TIENT VISIT EST PT 20- MINS [facility] [address] [place] [address], [id number] , [place] tel: [phone] [facility] back pain (chief complaint) Major depressive disorder, single episode, in partial remissionMild intermittent asthma without complicationP seudoseizureE ssential hypertensionS ubstance use disorderPoste rior chest pain 2 Nain Kathy. [address] [place], [place], [id number], [place]. tel:[phone] Referring Provider: Kathy Gillette, [address] [place], [address] . tel:[phone] OFFICE VISIT ESTAB PT 10-19 MINS [facility] [address] [place] [address], [id number] , [place] tel: [phone] [facility] Letter for immigration (chief complaint) Essential hypertensionM ajor depressive disorder, single episode, in partial remissionMild intermittent asthma without complicationP seudoseizure 2 Nain Kathy. [address] [place], [place], [id number], [place]. tel:[phone] Referring Provider: Kathy Gillette, [address] [place], [address] . tel:[phone] OFFICE/OUTPA TIENT VISIT EST PT 20-29 MINS [facility] [address] [place] [address], [id number] , [place] tel: [phone] [facility] Follow Up of Hypertension (chief complaint) Essential hypertensionM ajor depressive disorder, single episode, in partial remissionMild intermittent asthma without complicationP seudoseizure 2 Nain Kathy. [address] [place], [place], [id number], [place]. tel: [phone] Referring Provider: Kathy Gillette, [address] [place], [address] . tel:[phone] [facility] [address] [place] [address], [id number] , [place] tel: [phone] [facility] Dental caries on smooth surface penetrating into dentinEncount er for other general examination 2 Jimmy Arunrenzo. [address] [place] [address], [id number], [place]. tel: [phone] Referring Provider: Mary Marquez, [address] [place] [address], [address] . tel:[phone] [facility] [address] [place] [address], [id number] , [place] tel: [phone] [address] [place] [address] Medical No Information 2 Patricia franklin RN. [address] [place], [address], [place]. OFFICE/OUTPA TIENT VISIT EST PT 20-29 MINS [facility] [address] [place] [address], [id number] , [place] tel: [phone] [facility] Follow Up of Hypertension (chief complaint) Essential hypertensionM ild intermittent asthma without complicationM ajor depressive disorder, single episode, in partial remissionPseu doseizure 1 Nain Kathy. [address] [place], [place], [id number], [place]. tel: [phone] [facility] [address] [place] [address], [id number] , [place] tel: [phone] [facility] No Information 1 Nain Kathy. [address] [place], [place], [id number], [place]. tel: [phone] [facility] [address] [place] [address], [id number] , [place] tel: [phone] [facility] Pseudoseizure 1 Nain Kathy. [address] [place], [place], [id number], [place]. tel:[phone] OFFICE VISIT ESTAB PT 30-39 MIN [facility] [address] [place] [address], [id number] , [place] tel: [phone] [facility] Back pain (chief complaint)Anx iety (chief complaint)Dep ression (chief complaint) Back pain, unspecified back location, unspecified back pain laterality, unspecified chronicityMaj or depressive disorder, single episode, in partial remissionMild intermittent asthma without complicationE ssential hypertensionP seudoseizure 1 Nain Kathy. [address] [place], [place], [id number], [place]. tel:[phone] Referring Provider: Kathy Gillette, [address] [place] [address], [address] . tel:[phone] [facility] [address] [place] [address], [id number] , tel: [phone] [facility] Deposits [accretions] on teethEncounte r for other general examinationEn counter for screening for dental disordersDent al caries, unspecifiedCh ronic periodontitis , unspecifiedRi sk for dental caries, high 1 Jimmy Hernandez. [address] [place] [address], [id number], [place]. tel: [phone] Referring Provider: Mary Marquez, [address] [place] [address], [address] . tel:[phone] [facility] [address] [place] [address], [id number] , [place] tel: [phone] [facility] No Information 1 Nain Chavez. [address] [place], [place], [id number], [place]. tel: [phone] OFFICE/OUTPA TIENT VISIT EST PT 20-29 MINS [facility] [address] [place] [address], [id number] , [place] tel: [phone] [facility] Follow Up of Anxiety (chief complaint)Fol low Up of Depression (chief complaint)Idalia k pain (chief complaint) Major depressive disorder, single episode, in partial remissionMild intermittent asthma without complicationE ssential hypertensionP seudoseizureB ack pain, unspecified back location, unspecified back pain laterality, unspecified chronicity 1 Nain Chavez. [address] [place], [place], [id number], [place]. tel: [phone] Referring Provider: Kathy Gillette, [address] [place] [address], [address] . tel:[phone] [facility], [address] [place] [address], [id number] , [place] tel: [phone] [address] [place] [address] No Information 1 Provider1 First. . Referring Provider: First Provider1. Indiv.Psycho therapy 30 Minutes(16-3 7) [facility] [address] [place] [address], [id number] , tel: [phone] [facility] Major depressv disorder, single episode, in partial remis 1 Adrien Muniz. [address] [place] [address], [address], [place]. tel:[phone] Referring Provider: Flavio Ugalde, [address] [place] [address], [address]. tel:[phone] OFFICE VISIT ESTAB PT 30-39 MIN [facility] [address] [place] [address], [id number] , [place] tel: [phone] [facility] Follow Up of Depression (chief complaint) Episode of recurrent major depressive disorder, unspecified depression episode severityEssen tial hypertensionP seudoseizureM ild intermittent asthma without complication 1 Nain Chavez. [address] [place], [place], [id number], . tel: [phone] Referring Provider: Kathy Gillette, [address] [place], [address] . tel:[phone] [facility], [address] [place] [address], [id number] , tel: [phone] [address] [place] [address] No Information 1 Provider1 First. . Referring Provider: Provider1. Indiv.Psycho therapy 30 Minutes(16-3 7) [facility] [address] [place] [address], [id number] , tel: [phone] [facility] Major depressv disorder, single episode, in partial remis 1 Adrien Muniz. [address] [place] [address], [address], [place]. tel: [phone] Referring Provider: Flavio Ugalde, [address] [place] [address], [address]. tel:[phone] OFFICE VISIT ESTAB PT 30-39 MIN [facility] [address] [place] [address], [id number] , tel: [phone] [facility] Follow Up of Anxiety (chief complaint)Dep ression (chief complaint) Episode of recurrent major depressive disorder, unspecified depression episode severityPseud oseizureEssen tial hypertensionM ild intermittent asthma without complication 1 Nain Chavez. [address] [place], [place], [id number], [place]. tel: [phone] Referring Provider: Kathy Gillette, [address] [place], [address] . tel:[phone] [facility] [address] [place] [address], [id number] , [place] tel:[phone] [facility] No Information 0 Nain Tuckeria. [address] [place], [place], [id number], [place]. tel: [phone] Referring Provider: Kathy Nain, [address] [place], [address] . tel:[phone] Indiv.Psycho therapy 45 Minutes (38-52) [facility] [address] [place] [address], [id number] , [place] tel: [phone] [facility] Major depressv disorder, single episode, in partial remis 0 Adrien Muniz. [address] [place], [address], [place]. tel: [phone] Referring Provider: Flavio Ugalde, [address] [place] [address], [address]. tel:[phone] Indiv.Psycho therapy 30 Minutes(16-3 7) [facility] [address] [place] [address], [id number] , [place] tel: [phone] [facility] Major depressv disorder, single episode, in partial remis 0 Adrien Muniz. [address] [place], [address], [place]. tel: [phone] Referring Provider: Flavio Ugalde, [address] [place] [address], [address]. tel:[phone] [facility] [address] [place], [place], [id number] , [place] tel: [phone] [facility] No Information 0 Patricia Resendiz. [address] [place], [place], [id number], [place]. tel: [phone] Referring Provider: Astrid Gomez, [address] [place], [address] . tel:[phone] OFFICE/OUTPA TIENT VISIT, EST [facility] [address] [place] [address], [id number] , [place] tel: [phone] [facility] insomnia (chief complaint) Psychophysiol ogical insomnia Sep-1 0 Zheng Márquez. [address] [place] [address], [address], [place]. tel: [phone] Referring Provider: Yulisa Calzada, [address] [place] [address], [address]. tel:[phone] OFFICE/OUTPA TIENT VISIT, EST [facility] [address] [place] [address], [id number] , [place] tel: [phone] [address] [place] [address] hand pain (chief complaint) Hand pain, right Sep-0 0 Ronnell Thapa. [address] [place] [address], [id number], [place]. tel: [phone] Referring Provider: Alanis Reynaga, [address] [place] [address], [address] . tel:[phone] [facility], [address] [place] [address], [id number] , tel: [phone] [facility] No Information Jan- 0 Nain Chavez. [address] [place] [address], [id number], [place]. tel: [phone] Referring Provider: Kathy Gillette, [address] [place] [address], [address] . tel:[phone] [facility], [address] [place] [address], [id number] , [place] tel: [phone] [facility] Major depressv disorder, single episode, in partial remis Cory- 0 Adrien Muniz. [address] [place] [address], [address], [place]. tel: [phone] Referring Provider: Flavio Ugalde, [address] [place] [address], [address]. tel:[phone] OFFICE VISIT ESTAB PT 10 MIN [facility] [address] [place] [address], [id number] , [place] tel: [phone] [facility] COVID (chief complaint) COVID-19 virus infection 0 Nain Kathy. [address] [place], [place], [id number], . tel:[phone] Referring Provider: Kathy Gillette, [address] [place], [address] . tel:[phone] OFFICE VISIT ESTAB PT 10 MIN [facility] [address] [place] [address], [id number] , tel: [phone] [facility] COVID-19 (chief complaint) COVID-19 virus infection 0 Nain Kathy. [address] [place], [place], [id number], . tel:[phone] Referring Provider: Kathy Gillette, [address] [place], [address] . tel:[phone] [facility] [address] [place] [address], [id number] , tel: [phone] [facility] No Information 0 Nain Kathy. [address] [place], [place], [id number], . tel:[phone] Referring Provider: Kathy Gillette, [address] [place], [address] . tel:[phone] OFFICE VISIT ESTAB PT 10 MIN [facility] [address] [place] [address], [id number] , [place] tel: [phone] [facility] Chest pain/ cough (chief complaint) CoughChest pain, unspecified type 0 Nain Kathy. [address] [place], [place], [id number], [place]. tel:[phone] Indiv.Psycho therapy 30 Minutes(16-3 7) [facility] [address] [place] [address], [id number] , [place] tel: [phone] [facility] Major depressv disorder, single episode, in partial remis 0 Adrien Muniz. [address] [place], [address], [place]. tel:[phone] Referring Provider: Flavio Ugalde, [address] [place] [address], [address]. tel:[phone] [facility] [address] [place] [address], [id number] , [place] tel: [phone] [facility] No Information 0 Adrien Muniz. [address] [place] [address], [address], [place]. tel:[phone] Referring Provider: Flavio Ugalde, [address] [place] [address], [facility]. tel:[phone] OFFICE VISIT ESTAB PT 10 MIN [facility] [address] [place] [address], [id number] , tel: [phone] [facility] Thoracic back pain (chief complaint)Ast hma (chief complaint) Shortness of breathHistory of asthmaChronic midline thoracic back painOther chronic pain 0 Nain Chavez. [address] [place] [address], [id number], [place]. tel:[phone] Referring Provider: Kathy Gillette, [address] [place], [address] . tel:[phone] [facility] [address] [place] [address], [id number] , [place] tel: [phone] [facility] Major depressv disorder, single episode, in partial remis 0 Adrien Muniz. [address] [place] [address], [address], [place]. tel:[phone] Referring Provider: Flavio Ugalde, [address] [place] [address], [address]. tel:[phone] [facility] [address] [place] [address], [id number] , tel: [phone] [facility] No Information 0 Jose Allen. [address] [place] [address], [id number], . tel: [phone] Referring Provider: Alejandro Garcia, [address] [place] [address], [address] . tel:[phone] [facility], [address] [place] [address], [id number] , tel: [phone] [facility] No Information 0 Adrien Muniz. [address] [place] [address], [address], [place]. tel: [phone] Referring Provider: Flavio Ugalde, [address] [place] [address], [facility]. tel:[phone] [facility], [address] [place] [address], [id number] , tel: [phone] [facility] Major depressv disorder, single episode, in partial remis 0 Adrien Muniz. [address] [place] [address], [address], [place]. tel: [phone] Referring Provider: Flavio Ugalde, [address] [place] [address], [facility]. tel:[phone] OFFICE VISIT ESTAB PT 10 MIN [facility] [address] [place] [address], [id number] , tel: [phone] [facility] Follow Up of Depression (chief complaint)Dwight h (chief complaint) Major depressive disorder, recurrent, in partial remissionRash of handsEssentia l hypertension Oct- 0 Nain Chavez. [address] [place] [address], [id number], [place]. tel: [phone] Referring Provider: Kathy Gillette, [address] [place] [address], [address] . tel:[phone] [facility] [address] [place] [address], [id number] , tel: [phone] [facility] Major depressv disorder, single episode, in partial remis 0 Adrien Muniz. [address] [place], [address], [place]. tel:[phone] Referring Provider: Flavio Ugalde, [address] [place] [address], [facility]. tel:[phone] [facility] [address] [place] [address], [id number] , [place] tel: [phone] [facility] Major depressv disorder, single episode, in partial remis 0 Adrien Muniz. [address] [place], [address], [place]. tel: [phone] Referring Provider: Flavio Ugalde, [address] [place] [address], [facility]. tel:[phone] Indiv.Psycho therapy 30 Minutes(16-3 7) [facility] [address] [place] [address], [id number] , tel: [phone] [facility] Major depressv disorder, single episode, in partial remis 0 Adrien Muniz. [address] [place] [address], [address], [place]. tel:[phone] Referring Provider: Flavio Ugalde, [address] [place] [address], [facility]. tel:[phone] OFFICE VISIT ESTAB PT 10 MIN [employer] [address] [place] [address], [id number] , tel:[phone] [facility] Follow Up of ER/Seizure (chief complaint) Body mass index (BMI) 31.0-31.9, adultModerate episode of recurrent major depressive disorderHisto ry of seizuresHisto ry of alcohol abuse 0 Nain Kathy. [address] [place], [place], [id number], [place]. tel: [phone] Indiv.Psycho therapy 30 Minutes(163 7) [employer] [address] [place] [address], [id number] , tel: [phone] [facility] Major depressv disorder, single episode, in partial remisAlcohol use, unspecified with intoxication, unspecified 6 0 Adrien Muniz. [address] [place], [address], . tel: [phone] Referring Provider: Flavio Ugalde, [address] [place] [address], [facility]. tel:[phone] Indiv.Psycho therapy 30 Minutes(3 7) [employer] [address] [place] [address], [id number] , tel: [phone] [facility] Major depressv disorder, single episode, in partial remis 2 9 Juradosiva Muniz. [address] [place], [address], [place]. tel: [phone] [employer] [address] [place] [address], [id number] , tel: [phone] [facility] Encounter for screening for dental disordersEnco unter for other general examinationRi sk for dental caries, highDental caries, unspecified 8- 9 Jimmy Hernandez. [address] [place] [address], [id number], [place]. tel:[phone] Referring Provider: Mary Marquez, [address] [place] [address], [address] . tel:[phone] Indiv.Psycho therapy 30 Minutes(163 7) [employer] [address] [place] [address], [id number] , tel: [phone] [facility] Major depressv disorder, single episode, in partial remis Apr-3 0-201 9 Adrien Muniz. [address] [place], [address], . tel: [phone] Indiv.Psycho therapy 30 Minutes(16-3 7) [employer] [address], [place], [id number] , [place] tel:[phone] [facility] Major depressv disorder, single episode, in partial remis 3 9 Adrien Muniz. [address] [place], [address], [place]. tel:[phone] Referring Provider: Flavio Ugalde, [address] [place] [address], [address]. tel:[phone] OFFICE/OUTPA TIENT VISIT, EST [employer] [address] [place] [address], [id number] , [place] tel: [phone] [facility] depression (chief complaint) Body mass index (BMI) 31.0-31.9, adultLeft-clary ed chest painPalpitati onsRecurrent major depressive disorder, in remissionEsse ntial hypertension 9 Nain Kathy. [address] [place], [place], [id number], [place]. tel: [phone] Indiv.Psycho therapy 30 Minutes(16-3 7) [employer] [address] [place] [address], [id number] , [place] tel: [phone] [facility] Major depressv disorder, single episode, in partial remis 9 Adrien Muniz. [address] [place], [address], [place]. tel:[phone] Referring Provider: Flavio Ugalde, [address] [place], [address]. tel:[phone] Indiv.Psycho therapy 30 Minutes(16-3 7) [employer] [address] [place] [address], [id number] , [place] tel:[phone] [facility] Major depressv disorder, single episode, in partial remis 9 Adrien Muniz. [address] [place], [address], [place]. tel:[phone] Referring Provider: Flavio Ugalde, [address] [place], [address]. tel:[phone] Indiv.Psycho therapy 45 Minutes (38-52) [facility] [address] [place] [address], [id number] , [place] tel: [phone] [facility] Major depressv disorder, single episode, in partial remis 9 Adrien Muniz. [address] [place], [address], [place]. tel: [phone] Referring Provider: Flavio Ugalde, [address] [place] [address], [address]. tel:[phone] OFFICE/OUTPA TIENT VISIT, [facility] [address] [place] [address], [id number] , [place] tel: [phone] [facility] Anxiety (chief complaint) Body mass index (BMI) 31.0-31.9, adultPolycyth emiaMild intermittent asthma without complicationM ajor depressive disorder, recurrent, in partial remissionSeiz ures 9 Nain Kathy. [address] [place], [place], [id number], [place]. tel: [phone] OFFICE/OUTPA TIENT VISIT, [facility] [address] [place] [address], [id number] , [place] tel: [phone] [facility] Follow Up of Anxiety (chief complaint) Body mass index (BMI) 31.0-31.9, adultEpilepsy , unspecified, not intractable, without status epilepticusBi polar 1 disorder 9 Nain Kathy. [address] [place], [place], [id number], [place]. tel: [phone] Indiv.Psycho therapy 45 Minutes (38-52) [facility] [address] [place] [address], [id number] , [place] tel: [phone] [facility] Major depressv disorder, single episode, in partial remis 9 Melissa Falcon. [address] [place], [address], [place]. tel:[phone] FAMILY/COUPL E THARAPY 45-60 MIN. [employer] [address] [place] [address], [id number] , [place] tel: [phone] [facility] Major depressv disorder, single episode, in partial remisBipolar schizoaffecti ve psychosis 9 Juardo Flavio. [address] [place], [address], [place]. tel: [phone] Referring Provider: Flavio Ugalde, [address] [place], [address]. tel:[phone] Indiv.Psycho therapy 45 Minutes (38-52) [employer] [address] [place], [place], [id number] , [place] tel: [phone] [facility] Major depressv disorder, single episode, in partial remisCocaine dependence, in remissionCann abis dependence, in remissionAlco hol dependence, in remission 9 Adrien Muniz. [address] [place], [address], [place]. tel: [phone] OFFICE/OUTPA TIENT VISIT, EST [employer] [address] [place] [address], [id number] , [place] tel: [phone] [facility] Anxiety (chief complaint) Body mass index (BMI) 30.0-30.9, adultModerate episode of recurrent major depressive disorderAnxie tySeizures 9 Nain Chavez. [address] [place], [place], [id number], [place]. tel:[phone] Referring Provider: Kathy Gillette, [address] [place], [address] . tel:[phone] [facility] [address] [place] [address], [id number] , [place] tel:[phone] [facility] Encounter for screening for dental disordersEnco unter for other general examination 9 Jimmy Hernandez. [address] [place] [address], [id number], . tel: [phone] Referring Provider: Mary Marquez, [address] [place] [address], [address] . tel:[phone] OFFICE VISIT ESTAB PT 25 MIN [facility] [address] [place] [address], [id number] , [place] tel: [phone] [facility] MDD (chief complaint) Body mass index (BMI) 32.0-32.9, adultMajor depressive disorder, recurrent, in partial remissionEpil epsy, unspecified, not intractable, without status epilepticusMi ld intermittent asthma without complicationE ssential hypertension 8 Shira Begum. [address] [place], [place], [id number], . tel: [phone] [facility] [address] [place] [address], [id number] , tel: [phone] [facility] Major depressive disorder, recurrent, in partial remission 8 No Information Referring Provider: Benoit Gooden , [address] [place] [address], [address] . tel:[phone] [facility] [address] [place] [address], [id number] , tel: [phone] [facility] Major depressive disorder, recurrent, in partial remission 8 No Information [employer] [address] [place] [address], [id number] , [place] tel: [phone] [facility] Epilepsy, unspecified, not intractable, without status epilepticusMa kvng depressive disorder, recurrent, in partial remission Fe0 8 No Information Referring Provider: Benoit Gooden , [address] [place] [address], [id number] . tel:[phone] [facility] [address] [place] [address], [id number] , tel: [phone] [facility] examination 8 Gilberto Mccall. [address] [place] [address], [id number], [place]. tel: [phone] Referring Provider: Cal Macias, [address] [place] [address], [id number] . tel:[phone] [employer] [address] [place] [address], [id number] , tel: [phone] [facility] examination 8 Gilberto Mccall. [address] [place] [address], [id number], [place]. tel: [phone] Referring Provider: Cal Macias, [address] [place] [address], [id number] . tel:[phone] OFFICE VISIT ESTAB PT 25 MIN [employer] [address] [place] [address], [id number] , tel: [phone] [facility] nose bleeds (chief complaint) Obesity, unspecifiedAc shishmaref ira non-recurrent ethmoidal sinusitisEpil epsy, unspecified, not intractable, with status epilepticus 8 Giacomo Laboy. [address] [place] [address], [id number], [place]. tel: [phone] Referring Provider: Benoit Gooden , [address] [place] [address], [address] . tel:[phone] [employer] [address] [place] [address], [id number] , [place] tel: [phone] [facility] examination 7 Demenezes Paola. [address] [place] [address], [id number], [place]. tel: [phone] Referring Provider: Katie Mcbride, [address] [place] [address], [address]. tel:[phone] [facility] [address] [place] [address], [id number] , [place] tel: [phone] [facility] Epilepsy, unspecified, not intractable, without status epilepticusBi polar disorder, unspecified 7 No Information [employer] [address] [place] [address], [id number] , [place] tel: [phone] [facility] Bipolar disorder, unspecified No Information [facility] [address] [place] [address], [id number] , [place] tel: [phone] [facility] 7 Macias Cal. [address] [place] [address], [id number], [place]. tel: [phone] Referring Provider: Cal Macias[address], [address] . tel:[phone] [facility] [address] [place] [address], [id number] , [place] tel: [phone] [facility] Bipolar disorder, unspecifiedEp ilepsy, unspecified, not intractable, without status epilepticus No Information OFFICE/OUTPA TIENT VISIT, EST [facility] [address] [place] [address], [id number] , [place] tel: [phone] [facility] Bipolar disorder (chief complaint) Obesity, unspecifiedBi polar disorder, unspecifiedEp ilepsy, unspecified, not intractable, without status epilepticusEs sential hypertensionF atigue, unspecified type Giacomo Laboy. [address] [place] [address], [id number], [place]. tel: [phone] Referring Provider: Benoit Gooden , [address] [place] [address], [address] . tel:[phone] [facility] [address] [place] [address], [id number] , [place] tel: [phone] [facility] Bipolar disorder, unspecifiedEp ilepsy, unspecified, not intractable, without status epilepticus No Information Referring Provider: Benoit Gooden , [address] [place] [address], [address] . tel:[phone] OFFICE/OUTPA TIENT VISIT, [employer] [address] [place] [address], [id number] , [place] tel: [phone] [facility] of seizure (chief complaint)Fol low Up of Bipolar disorder (chief complaint) Obesity, unspecifiedBi polar disorder, unspecifiedEp ilepsy, unspecified, not intractable, without status epilepticus Patricia Resendiz. [address] [place] [address], [id number], [place]. tel: [phone] Referring Provider: Benoit Gooden , [address] [place] [address], [address] . tel:[phone] [facility] [address] [place] [address], [id number] , [place] tel: [phone] [facility] Bipolar disorder, unspecifiedEp ilepsy, unspecified, not intractable, without status epilepticus No Information OFFICE/OUTPA TIENT VISIT, [employer] [address] [place] [address], [id number] , [place] tel: [phone] [facility] epilepsy (chief complaint) Bipolar disorder, unspecifiedEp ilepsy, unspecified, not intractable, without status epilepticus 7 Giacomo Laboy. [address] [place] [address], [id number], [place]. tel: [phone] Referring Provider: Benoit Gooden , [address] [place] [address], [address] . tel:[phone] [facility] [address] [place] [address], [id number] , [place] tel: [phone] [facility] [address], [id number], [place]. tel: [phone] Referring Provider: Cal Macias, [address] [place] [address], [id number] . tel:[phone] [facility] [address] [place] [address], [id number] , tel: [phone] [facility] 7 Taylor Mukherjeelpa. [address] [place] [address], [id number], [place]. tel:[phone] Referring Provider: Katie Mcbride, [address] [place] [address], [address]. tel:[phone] [employer] [address] [place] [address], [id number] , tel: [phone] [facility] Epilepsy, unspecified, not intractable, without status epilepticus 6 No Information [employer] [address] [place] [address], [id number] , [place] tel: [phone] [facility] 6 [facility]. [address] [place] [address], [id number], [place]. tel: [phone] Referring Provider: Katie Mcbride, [address] [place] [address], [address]. tel:[phone] OFFICE/OUTPA TIENT VISIT, EST [employer] [address] [place] [address], [id number] , [place] tel: [phone] [facility] of epilepsia (chief complaint) Bipolar disorder, unspecifiedEp ilepsy, unspecified, not intractable, without status epilepticusSh ortness of breath 6 Giacomo Laboy. [address] [place] [address], [id number], [place]. tel: [phone] Referring Provider: Benoit Gooden , [address] [place] [address], [address] . tel:[phone] [facility] [address] [place] [address], [id number] , tel: [phone] [facility] Mar- 6 Reed Wilson. [address] [place] [address], [address], [place]. tel:[phone] Referring Provider: Katie Mcbride, [address] [place] [address], [address]. tel:[phone] [employer] [address] [place] [address], [id number] , [place] tel: [phone] [facility] Feb-2 6 Reed Wilson. [address] [place] [address], [address], [place]. tel:[phone] Referring Provider: Katie Mcbride, [address] [place] [address], [address]. tel:[phone] OFFICE/OUTPA TIENT VISIT, EST [employer] [address] [place] [address], [id number] , [place] tel: [phone] [facility] of ER (chief complaint) Epilepsy, unspecified, not intractable, without status epilepticusBi polar disorder, unspecified 6 Giacomo Laboy. [address] [place] [address], [id number], [place]. tel:[phone] Referring Provider: Benoit Gooden , [address] [place] [address], [address] . tel:[phone] [facility] [address] [place] [address], [id number] , [place] tel: [phone] [facility] Bipolar disorder, unspecified Feb-0 6 No Information Indiv.Psycho therapy 30 Minutes [employer] [address] [place] [address], [id number] , [place] tel: [phone] [facility] Major depressv disorder, single episode, in partial remisCocaine dependence, in remissionCann abis dependence, in remissionAlco hol dependence, in remission 6 Seth Mckenzie. [address] [place], [address], [place]. tel: [phone] Referring Provider: Benoit Gooden , [address] [place] [address], [address] . tel:[phone] OFFICE/OUTPA TIENT VISIT, EST [employer] [address] [place] [address], [id number] , [place] tel: [phone] [facility] Shortness of breath (chief complaint) Epilepsy, unspecified, not intractable, without status epilepticusSh ortness of breathRash of hands 6 Giacomo Laboy. [address] [place] [address], [id number], [place]. tel: [phone] Referring Provider: Benoit Gooden , [address] [place] [address], [address] . [phone] [facility] [address] [place] [address], [id number] , tel: [phone] [facility] Major depressive disorder, recurrent, in partial remission November-0 6 No Information Indiv. Diag. Evaluation (Physician) [facility] [address] [place] [address], [id number] , tel: [phone] [facility] Major depressv disorder, single episode, in partial remisCocaine dependence, in remissionCann abis dependence, in remissionAlco hol dependence, in remission 6 Gurmeet Woodard. [address] [place], [address], [place]. tel: [phone] Referring Provider: Benoit Gooden , [address] [place] [address], [address] . tel:[phone] [facility] [address] [place] [address], [id number] , tel: [phone] [facility] Sep- 6 Reed Katie. [address] [place] [address], [facility], . tel:[phone] Referring Provider: Katie Mcbride, [address] [place] [address], [facility]. tel:[phone] OFFICE VISIT ESTAB PT 25 MIN [facility] [address] [place] [address], [id number] , tel: [phone] [facility] of Hypertension (chief complaint)Fol low Up of B/L arm swelling (chief complaint) Arm swellingBipol ar disorder, unspecifiedEp ilepsy, unspecified, not intractable, without status epilepticusEs sential hypertensionS hortness of breath 6 Giacomo Laboy. [address] [place] [address], [id number], . tel: [phone] Referring Provider: Benoit Gooden , [address] [place] [address], [address] . tel:[phone] Indiv.Psycho therapy 30 Minutes [employer], [address] [place] [address], [id number] , tel: [phone] [facility] Major depressive disorder, recurrent, in partial remission Sep- 6 Ann Khushi. [address] [place], [address], [place]. tel: [phone] Referring Provider: Benoit Gooden , [address] [place] [address], [address] . tel:[phone] Indiv.Psycho therapy 45 Minutes [facility] [address] [place] [address], [id number] , tel: [phone] [facility] Major depressive disorder, recurrent, in partial remission Sep-0 - 6 Ann Khushi. [address] [place], [address], [place]. tel: [phone] Referring Provider: Benoit Gooden , [address] [place] [address], [address] . tel:[phone] PREVENT VISIT EST [employer] [address] [place] [address], [id number] , tel: [phone] [facility] Preventive exam (chief complaint) Encounter for general adult medical examination without abnormal findingsBipol ar disorder, unspecifiedEp ilepsy, unspecified, not intractable, without status epilepticusEs sential hypertensionA rm swellingTight ness in chest 6 Giacomo Abadkade. [address] [place] [address], [id number], [place]. tel: [phone] Referring Provider: Benoit Gooden , [address] [place] [address], [address] . tel:[phone] Indiv.Psycho therapy 45 Minutes [employer] [address] [place] [address], [id number] , tel: [phone] [facility] Major depressive disorder, recurrent, in partial remission 6 Seth Mckenzie. [address] [place], [address], [place]. tel: [phone] Referring Provider: Benoit Gooden , [address] [place] [address], [address] . tel:[phone] Indiv.Psycho therapy 45 Minutes [employer] [address] [place] [address], [id number] , [place] tel: [phone] [facility] Major depressive disorder, recurrent, in partial remission 6 Seth Vuia. [address] [place], [address], [place]. tel: [phone] Referring Provider: Benoit Gooden , [address] [place] [address], [address] . tel:[phone] [facility] [address] [place] [address], [id number] , [place] tel: [phone] [facility] 5 Reed Wilson. [address] [place] [address], [address], [place]. tel: [phone] Referring Provider: Lela Mojica, [address] [place] [address], [address]. tel:[phone] Indiv.Psycho therapy 30 Minutes [facility] [address] [place] [address], [id number] , [place] tel: [phone] [facility] Major depressive disorder, recurrent, in partial remission 5 Ann Khushi. [address] [place] [address], [address], [place]. tel: [phone] Referring Provider: Lela Mojica, [address] [place] [address], [address]. tel:[phone] Indiv.Psycho therapy 45 Minutes [facility] [address] [place] [address], [id number] , [place] tel: [phone] [facility] Major depressive disorder, recurrent, in partial remission 5 Annshanika Mckenzie. [address] [place] [address], [address], [place]. tel: [phone] Referring Provider: Lela Mojica, [address] [place] [address], [address]. tel:[phone] OFFICE/OUTPA TIENT VISIT, EST [facility] [address] [place] [address], [id number] , [place] tel: [phone] [facility] Depression (chief complaint) Epilepsy, unspecified, not intractable, with status epilepticusMa kvng depressive disorder, recurrent, in partial remission 5 Galina Vogel. [address] [place] [address], [address], [place]. tel: [phone] Referring Provider: Lela Mojica, [address] [place] [address], [address]. tel:[phone] [facility] [address] [place] [address], [id number] , [place] tel: [phone] [facility] Other depressive episodes 5 No Information [facility] [address] [place] [address], [id number] , [place] tel: [phone] [facility] [address] [place], . Referring Provider: Lela Mojica, [address] [place] [address], [address]. tel:[phone] Indiv.Psycho therapy 45 Minutes [facility] [address] [place] [address], [id number] , [place] tel: [phone] [facility] Major depressive disorder, recurrent, in partial remission 5 [facility]. [address] [place], [address], [place]. tel: [phone] Referring Provider: Lela Mojica, [address] [place] [address], [address]. tel:[phone] Psychiatric Diagnostic Evaluation ( Non MD) [facility] [address] [place] [address], [id number] , [place] tel: [phone] [facility] DepressionNon dependent alcohol abuse, unspecified drinking behavior 5 [facility]. [address] [place] [address], [address], [place]. tel: [phone] Referring Provider: Lela Mojica, [address] [place] [address], [address]. tel:[phone] OFFICE/OUTPA TIENT VISIT, EST [facility] [address] [place] [address], [id number] , [place] tel: [phone] [facility] depression (chief complaint)sei zures (chief complaint) DepressionSei zure disorder 5 [facility]. [address] [place], [place], [id number], [place]. tel:[phone] Referring Provider: Lela Mojica, [address] [place], [address]. tel:[phone] [facility] [address] [place] [address], [id number] , [place] tel: [phone] [facility] 5 Reed Katie. [address] [place] [address], [place], [address], [place]. tel: [phone] Referring Provider: Flavio Berg, [address] [place] [address], [address]. tel:[phone] [facility] [address] [place] [address], [id number] , [place] tel: [phone] [facility] Bipolar 1 disorderPolys ubstance dependence 5 No Information OFFICE/OUTPA TIENT VISIT, [facility] [address] [place] [address], [id number] , [place] tel: [phone] [facility] ED (chief complaint) Seizure disorderPolys ubstance dependenceBip olar 1 disorder 5 Galina Vogel. [address] [place] [address], [address], [place]. tel: [phone] Referring Provider: Lela Mojica, [address] [place] [address], [address]. tel:[phone] [facility] [address] [place] [address], [id number] , [place] tel: [phone] [facility] Seizure disorder 4 Galina Vogel. [address] [place] [address], [address], [place]. tel: [phone] OFFICE/OUTPA TIENT VISIT, [employer] [address] [place] [address], [id number] , [place] tel: [phone] [facility] Acute Liver Injury (chief complaint) RUQ painLiver injury 4 Galina Vogel. [address] [place] [address], [address], [place]. tel: [phone] [facility] [address] [place] [address], [id number] , tel: [phone] [facility] examination 4 Bhattachary a Ana. [address] [place], [address], [place]. tel:[phone] [facility] [address] [place] [address], [id number] , tel: [phone] [facility] No Information 4 [facility]. [address] [place], [address], [place]. tel: [phone] PREVENT VISIT NEW AGE 18-39 [facility] [address] [place] [address], [id number] , tel: [phone] [facility] Preventive exam (chief complaint) ROUTINE MEDICAL EXAMSeizure disorderNeed for prophylactic vaccination with unspecified combined vaccine 4 Galina Vogel. [address] [place] [address], [address], [place]. tel: [phone] [employer], [address] [place] [address], [id number] , tel: [phone] Administrati on - [facility] No Information [employer]. , [place], [address], . Family History Family Member Type Diagnosis Age At Onset Mother Problem (finding) seizure disorder Brother Problem (finding) Alive and well Sister Problem (finding) Alive and well Father Problem (finding) Alive and well Immunizations Vaccine Date Status Comments COVID-19 PF PFR administered Source: [facility] Flu Vaccine ([id number]) administered Sour ce: New Immunization Record Flu (age 3 and above) administered Source : New Immunization Record Fluarix (ADULTS 19 - 64 y/o) administered Source: New Immunization Record Tdap administered Source: New Imm unization Record Tdap pending Source: New Imm unization Record Payers Payer name Insurance type Covered republican ID Authoriza tion(s) [facility] CI [id number] [facility] CI [id number] [facility] CI [id number] Medicaid [id number] Medicaid [id number] Social History Type Description Quantity Date Captured [...] Lifestyle education regardin g diet completed Goal ECG. Due on due Goal PHQ9. Due on due Goal Potassium. Due on 8 due Goal Creatinine. Due on due Goal Suicide risk ass essment. Due on due Goal Depression scree lilia. Due on due Goal Dietary manageme nt education, guidance, and counseling completed Goal Influenza vaccine. Due on due Goal Potassium. Due on 8 due Goal PHQ9. Due on due Goal Suicide risk ass essment. Due on due Goal Creatinine. Due on 18 due Goal Depression scree lilia. Due on due Goal ECG. Due on due Goal Creatinine. Due on 18 due Goal ECG. Due on due Goal [...] Goal Potassium. Due on 7 due Goal Potassium. Due on 7 due [...] due Goal Potassium. Due on due Goal ECG. Due on [...] due Goal Potassium. Due on 6 due Referral Ordered: Referrals: Neurology. Consult ordered Referral Ordered: Referrals: Pulmonology. Consult ordered Referral Referred To: Physical Therapy Ordered: Referrals: Physical Therapy. Consult ordered Referral Ordered: Referrals: Psychiatry. Location: [facility]. Consult ordered Referral Ordered: Referrals: Cardiology. Diagnostic testing ordered Referral Referred To: Dr. Babatuned Morocho Ordered: Referrals: Psychiatry. Dr. Babatunde Morocho. Evaluate and treat ordered Referral Ordered: Referrals: Pulmonology. Diagnostic testing ordered Referral Referred To: T Ordered: Referrals: [facility]. CHT ordered Referral Ordered: Referrals: Neurology. Evaluate and treat ordered Patient Education Low Back Pain: Exercise s completed Unknown Immunization Tdap ordered Future Order: Lab Order HAND RIG HT MIN 3VW (HANDCOMPR), Ordered on: Ordered Future Order: Lab Order CHEST 2 VW ([id number]), Sent on: Sent History Of Present Illness [...] follow-up but states he forgot to call [facility] for a ride so needs to change [...] Pt fol lowing up, he was at [facility] from 10/17/2021- 10/20/2021 for passive SI. He initially went to ED with worsening depression and seizures. 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 Pt was discharged from hospital to crisis stabilization unit at [facility]. He was discharged home on Tuesday10/25/2021. He is back at his Uncle's house. He states he is experiencing some continued depression but no SI. Pt plans to follow-up with [facility] on 11/06/2021 as scheduled. TV This is a phone visit conducted during the COVID 19 Pandemic. Pt agrees to phone visit with Provider. Comments: Pt jael ls because he had a nosebleed yesterday. Bleeding has since stopped. Mar-11-2022 Nose bleeds The patient pres ents with [...] Pt is feeling well, no concerns today. Anxiety The patient pres ents with difficulty concentrating, excessive worry and fatigue but denies anxious/fearful thoughts, depressed mood, difficulty falling asleep, difficulty staying asleep, feelings of guilt or paranoia. Back pain Onset: 2 months ago. Location of pain is lower back. Symptoms are aggravated by changing positions, daily activities and standing. Comments: This i s a phone visit conducted during the ID pandemic. Pt agrees to phone visit with provider.Pt with low back pain on both sides, more to the right side. No radiation. It is worse with prolonged sitting or standing.Pt is using acetaminophen with some effect. Depression Follow Up of Depression Back pain Onset: 3 months ago. Location of pain is upper back, middle back and lower back. Symptoms are aggravated by ascending stairs, bending, changing positions, daily activities, descending stairs, lying/rest, rolling over in bed and walking. Back pain (comments) Pain is wor se with prolonged standing or bending over.He is not currently taking anything for the pain, wanted to check with me first.No acute injury. Follow Up of Anxiety (comments) This is a phone visit conducted during the ID [...] difficulty falling asleep. Follow Up of Depression Follow Up of Depress ion (comments) This is a phone visit conducted during the ID [...] keep follow-up appts.On 10/02/2020 pt went to [facility] with altered mental status, which resolved with discontinuation of Depakote.Pt was evaluted by neurology inpatient, had EEG normal x 2, thought to have pseudoseizure, recommended stopping seizure medication.Today, pt still seems unsure of the medications he should be taking. States he is missing his Depakote. States the only medication he has is Trazodone. Pt states he does not yet have an appt with [facility].He also endorses issues with memory, states his uncle advised him to mention this to me. Follow Up of Anxiety (comments) This is a phone visit conducted during the COVID-19 pandemic. Pt agrees to phone visit with provider.Following up with patient after recent hospitalization at [facility] from 10/02/2020- 10/31/2020 for depression and altered [...] keep follow-up appts.On 10/02/2020 pt went to [facility] with altered mental status, which resolved with discontinuation of Depakote.Pt was evaluted by neurology inpatient, had EEG normal x 2, thought to have pseudoseizure, recommended stopping seizure medication. Depression Follow Up of Anxiety The patient reports functioning as somewhat difficult. The Global Assessment of Functioning Scale (GAF) = 59. The patient presents with decreased need for sleep, difficulty concentrating and difficulty falling asleep but denies anxious/fearful thoughts, compulsive thoughts, depressed mood, easily startled, excessive worry, fatigue, feelings of guilt, increased libido, loss of appetite, paranoia or thoughts of or suicide. insomnia The patient pres ents with sleep problems. The patient's symptoms began 3 days ago. The patient has the following risk factors for insomnia: use of alcohol. The patient does not have: smoking. The patient is experiencing difficulty concentrating, difficulty initiating sleep and sleep walking. The patient denies awakening with shortness of breath or depression.Additional information: pt consents to phone visit during covid19. pt states he has slept in 3 [...] was conducted by telephone due to COVID 19 pandemic w/ pt consentRight hand pain x [...] symptoms. He tested positive on 12/10/2019. COVID COVID- COVID-19 (comments) This is a ph one [...] about possible COVID-19 exposure at a family [employer] this week but did not hear of [...] noticed an increase in shortness of breath. Rash Rash (comments) Pt endorses some itchy rash on his arms and hands, states he had this before and hydrocortisone worked well for him. Follow Up of Depression Follow Up of [...] did not go to see neurology in [place] because it is far and he has a lot going on at home. He states he knows he needs to call [facility] once he reschedules his appt.Pt states he [...] and he has not heard back from [facility] neuro clinic to schedule. [facility] has been assisting patient with [...] Follow Up of ED Pt. was at [facility] from 09/12/14-10/31/14 d/c to [facility] in [place], [place] after a suicide attempt. Attd. LYNNE: Rater [phone]. was dx with bipolar, polysubstance dependence, seizure disorder. He does not have outpt. psychiatry appt. for medication mgt. He is on 9 different medications. Acute Liver Injury Pt. was hospi talized at [facility] from 05/06/14-05/08/14 due to abd. pain and [...] complication Follow-up with Dr Nel serrano at [facility] on 12/18/2021 as scheduled.Continue Fluoxetine, Bupropion, and [...] asthma without complication Continue following w ith [facility]- pt was seeing Dr Krishnan but will need new psychiatrist as he left.Venlafaxine 150mg daily and Trazodone 100mg nightly per psychiatry, refills sent today while pt is waiting on new psychiatrist. Advised pt to discuss with his [facility] darklight inspector what the plan is for new prescriber. [...] to Essential hypertension Continue following w ith [facility]- pt was seeing Dr Krishnan but will need new psychiatrist as he left.Venlafaxine 150mg daily and Trazodone 100mg nightly per psychiatry, refills sent today while pt is waiting on new psychiatrist. Advised pt to discuss with his [facility] darklight inspector what the plan is for new prescriber. 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 Related to Episode of recurrent major depressive disorder, unspecified depression episode severity Continue Lisinopril 10mg Related to Essential hypertension Keppra and Depakote stopped by inpatient neurology as they were likely contributing to confusion. 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 Related to Recurrent major depressive disorder, in [...] he was seen by him at the [facility] partial program. Pt will need fasting lipid [...] 50mg QAM and afternoon as needed.referral to [facility]. Related to Bipolar disorder, unspecified Dietary needs [...] unspecified continue current med ications.warm handoff to [facility] Jerome to assist in getting patient in with new neurology.no recent seizure d/o. Related to Epilepsy, unspecified, not intractable, without status epilepticus continue albuterol.w e will get the PFT results and make adjustments accordingly. Related to Shortness of breath continue trazodone a nd quetiapine.continue f/u with provider for ECT. Related to Bipolar disorder, unspecified continue divaloprex. call [facility] neurology today to reschedule --> [phone]. Related to Epilepsy, unspecified, not intractable, without [...] of hands call to make neuro a ppt:[facility] [address] [place], [place] [id number] current meds. Related to Epilepsy, unspecified, not [...] the from to get the notes from [facility] Related to Depression Assessments Type Assessment Date No Information Patient Care Teams Name Effective Dates (start - stop) Status Members No Information
--- OUTSIDE RECORDS SUMMARY | 2024-10-01 13:34 | XMS_ITS | Clinical Summary ---
Author Organization [address] Address [address] [place] [address] Phone Care Team Providers Care Television Parts Tester Name Role Phone Antonio Mcmillan DO Primary Care Provider [phone] Allergies No known active allergies Medications acetaminophen [...] Years Used Date Smoking Tobacco: Never Assessed [facility] Utilities Answer Date Recorded In the past 12 months has th e [employer], gas, oil, or water [employer] threatened to shut off services in your [...] 06/11/2022, 02/25/2022, 06/30/2021, Additional history exists RSV Immunization (1 - 1-dose 75+ series) 2062 Meningococcal Vaccine Aged Out No donna farzaneh eligible based on patient's age to complete this topic Pneumococcal Vaccine (2 - 49 years) Aged Out No longer eligible based on patient's age to complete this topic Insurance [place] on file [place] on file [facility] at [address] [address] Advance Directives * Full Code (Latest Code Status on File) Date Activated Date Inactivated Comments 02/17/2024 5:24 PM 02/21/2024 2:32 PM Question Answer Comments With Whom was the Code Status Discussed? Patient Care Teams Television Parts Tester Relationship Specialty Start Date End Date Antonio Mcmillan DO [address] [place] [address] PCP - General Internal Medicine 02/17/24
--- OUTSIDE RECORDS SUMMARY | 2024-10-01 13:34 | XMS_ITS | Data Portability ---
Author Organization [place] [facility] [place] [employer] Address [address] [place] [address] Care Team Providers Care Program Manager Slp Name Role Phone VITALIY PIPER Primary Care [...] - Room 3 please 023 09/04/19 23 [facility] [address], [address], [place], [address], 12:54:13 Medication Orders None recorded . Patient [...] Exam Date: 2022 Orderi ng Provid er: [id number] [facility] [address], [place], [address], 09/03/2022 16:20:38 Result Notes None recorded. Problems Name Problem SNOMED Code Status Onset Date Resolution Date Notes Provider Name and Address Organization Details Recorded Time Brachial plexopathy of right upper limb 5326124611713 9103 Active 2022 Mani Morton MD [address], [place], [address] , Formerly [facility], later [facility], [facility]. 14:19:54 Problem Notes None recorded. Procedures Surgical History None recorded. Imaging Results Imaging Date Name Status LastModified by Organiz ation Details LastModified Time 09/03/2022 XR, shoulder, 2 or more view completed [facility] ([facility] [address], [place], [address], 09/03/2022 16:20:38 Procedure Notes None recorded. Medical Equipment None Reported. Allergies Allergen ID Allergen Name Allergen Category Reaction Reaction Severity Criticality Documentation Date Start Date Code Code System Note Provider Name and Address Organization Details Recorded Time 013319 Zoloft medicatio n dizziness Not available Not available 09/03/2022 02690 RxNorm Not Available Not Available Not Available [...] Updated DateTime 09/03/2022 165.1 cm 29.1 kg/m2 11995.66 g Yvette Roy [facility], [facility] 09/03/2022 11:49:57 Social History Question Answer Notes LastModified by Organizat ion Details LastModified Time Tobacco Smoking Status Never Smoker Yvette law [facility] 09/03/2022 11:50:53 How Much Alcohol Do You Drink In A Week? None [email or web address] Information not available 09/03/2022 What Was The Date Of Your Most Recent Tobacco Screening? 09/03/2022 [email or web address] Information not available 09/03/2022 Sex: Unknown Functional Status None recorded. Mental Status None recorded. Family History Nothing Reported. Medical History Condition Response Anxiety/Depression Y High Blood Pressure Y Past Encounters Encounter ID Performer Location Encounter Start Date Encounter Closed Date Diagnosis/Indication Diagnosis SNOMED-CT Code Diagnosis ICD10 Code Diagnosis Note [id number] MD Cynthia Ballard [facility] [address] [facility] [facility] [place] [id number] 09/03/2022 11:24:47 09/03/2022 12:21:14 Pain of right shoulder joint [id number] 9313177 M25.511 Brachial p lexopathy of right upper limb [id number] 0220661 G54.0 he has a severe right upper [...] Policy Number Policy Norman Covered Member ID Nomran Member ID Guarantor Name 09/03/2022 1 [place] Ranjana Soto [id number] Ranjana Soto Notes Date Note Type Note [...] Mani Morton MD [address], [place], [address], Formerly [facility] 09/03/2022 14:20:10
--- OUTSIDE RECORDS SUMMARY | 2024-10-01 13:34 | XMS_ITS | Encounter Summary ---
Author Organization [employer] Address [address] [place] [address] Care Team Providers Care Pulley Mortiser Operator Name Role Phone Antonio Mcmillan MD Primary Care Provider [phone] Encounter Details Date Type Department Care Team (Late st Contact Info) Description 06/05/2024 Lab Requisition [facility] Lab [address] [facility] [place] [address] Antonio Mcmillan MD [address] [place] [address] [address] [place], [place] Diffuse traumatic brain injury with loss [...] (ABNORMAL) CBC auto differential (06/05/2024 6:00 AM [facility]) [facility] WBC 4.8 4.8 - 10.8 K/mcL LAB [...] ORDERABLES Final Resul t Performing Organization Address [facility]/ZIP Co de Phone Number [facility] [address] [place] [address], [place] [phone] * (ABNORMAL) Ammonia (06/05/2024 6:00 AM EST) Ammonia 82(H) 11 - 35 mcmol/L LAB CHEMISTRY METHOD 06/05/2024 7:14 AM [facility] Blood Venous blood specimen / Unknown 06/05/2024 6:00 AM EST 06/05/2024 6:45 AM EST us Antonio Mcmillan MD LAB BLOOD ORDERABLES Final Resul t Performing Organization Address [facility] de Phone Number [facility] [address] [place] [address], [place] [phone] * (ABNORMAL) Comprehensive metabolic panel (06/05/2024 6:00 AM EST) Pathologist [facility] Sodium 141 133 - 145 mmol/L LAB [...] LAB BLOOD ORDERABLES Final Resul t [facility] [address] [place] [address], documented in this encounter Visit Diagnoses Diagnosis Diffuse traumatic brain injury with loss of consciousness of unspecified duration, sequela (CMS/HCC) documented in this encounter Care Teams Pulley Mortiser Operator Relationship Specialty Start Date End Date Antonio Mcmillan MD [address] [place] [address] Dr [address] [place], [place] PCP - General Internal Medicine 08/10/24 documented as of this encounter
== END 2024-10-01 12:10 | disposition home or self-care (01) ==
LOC: HO.HGS 11:48
PROVIDERS: PCP Hospitalist; Visit Provider Surgery
DX: J98.6 Disorders of diaphragm (principal); G56.80 Other specified mononeuropathies of unspecified upper limb
CPT/HCPCS: 99205

== ENCOUNTER → 2024-10-01 11:47 | Outpatient (BNVA) | payer MEDICAID, SELFPAY | PROVIDERS: PCP Hospitalist; Visit Provider Surgery | DX: G56.80 Other specified mononeuropathies of unspecified upper limb (principal); J98.6 Disorders of diaphragm | CPT/HCPCS: 99202 ==

== ENCOUNTER 2024-10-02 11:40 | Outpatient (AMB) | payer MEDICAID, SELFPAY ==
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
[2024-10-02 11:47] VITALS: BP 140/81; PULSE 106; BMI 33.8
--- OUTSIDE RECORDS SUMMARY | 2024-10-02 14:07 | XMS_ITS | Encounter Summary ---
Author Organization [employer] Address [address] [place] [address] Care Team Providers Care Market Research Associate Name Role Phone Antonio Mcmillan MD Primary Care Provider [phone] Encounter Details Date Type Department Care Team (Late st Contact Info) Description 09/11/[address] [facility] - Main Lab [address] [facility] [place] [address] Antonio Mcmillan MD [address] [place] [address] [address] [place], [place] Diffuse traumatic brain injury with loss [...] K/mcL LAB HEMETOLOGY METHOD 09/11/2024 8:44 AM [facility] RBC 5.40 4.50 - 5.50 M/mcL LAB HEMETOLOGY METHOD 09/11/2024 8:44 AM [facility] Hemoglobin 15.9 13.5 - 17.5 g/dL LAB HEMETOLOGY METHOD 09/11/2024 8:44 AM [facility] Hematocrit 50.2 42.0 - 54.0 % LAB HEMETOLOGY METHOD 09/11/2024 8:44 AM [facility] MCV 92.3 79.0 - 98.0 FL LAB HEMETOLOGY METHOD 09/11/2024 8:44 AM [facility] MCH 29.2 27.0 - 32.0 pcg LAB HEMETOLOGY METHOD 09/11/2024 8:44 AM [facility] MCHC 31.7(L) 32.0 - 37.0 g/dL LAB HEMETOLOGY METHOD 09/11/2024 8:44 AM [facility] RDW 14.4 11.0 - 15.0 % LAB HEMETOLOGY METHOD 09/11/2024 8:44 AM [facility] Platelets 09/11/2024 8:44 AM [facility] Comment:Not measured. Platel ets appear adequate but clumped MPV 10.8 7.0 - 11.0 FL LAB HEMETOLOGY METHOD 09/11/2024 8:44 AM [facility] NRBC 0.0 <1.0 % LAB HEMETOLOGY METHOD 09/11/2024 8:44 AM [facility] NRBC Absolute 0.00 <0.10 K/mcL LAB HEMETOLOGY METHOD 09/11/2024 8:44 AM [facility] Neutrophils Relative 38.9 % LAB HEMETOLOGY METHOD 09/11/2024 8:44 AM [facility] Lymphocytes Relative 51.5 % LAB HEMETOLOGY METHOD 09/11/2024 8:44 AM [facility] Monocytes Relative 8.2 % LAB HEMETOLOGY METHOD 09/11/2024 8:44 AM [facility] Eosinophils Relative 0.6 % LAB HEMETOLOGY METHOD 09/11/2024 8:44 AM [facility] Basophils Relative 0.5 % LAB HEMETOLOGY METHOD 09/11/2024 8:44 AM [facility] Immature Granulocytes Relative 0.3 % LAB HEMETOLOGY METHOD 09/11/2024 8:44 AM [facility] Neutrophils Absolute 2.52 1.50 - 7.00 K/mcL LAB HEMETOLOGY METHOD 09/11/2024 8:44 AM [facility] Lymphocytes Absolute 3.33 1.00 - 5.00 K/mcL LAB HEMETOLOGY METHOD 09/11/2024 8:44 AM EDT [facility] Monocytes Absolute 0.53 0.20 - 1.00 K/[facility] LAB HEMETOLOGY METHOD 09/11/2024 8:44 AM EDT [facility] Eosinophils Absolute 0.04 0.00 - 0.50 K/[facility] LAB HEMETOLOGY METHOD 09/11/2024 8:44 AM EDT [facility] Basophils Absolute 0.03 0.00 - 0.20 K/[facility] LAB HEMETOLOGY METHOD 09/11/2024 8:44 AM EDT [facility] Immature Granulocytes Absolute 0.02 0.00 - 0.03 K/[facility] LAB HEMETOLOGY METHOD 09/11/2024 8:44 AM EDT [facility] Blood Venous blood specimen / Unknown 09/11/2024 6:50 AM EDT 09/11/2024 7:44 AM EDT us Antonio Mcmillan MD LAB BLOOD ORDERABLES Final Resul t Performing Organization Address City/[facility]/ZIP Co de Phone Number [facility] [address] [place] [address], [place] [phone] * Thyroid stimulating hormone (09/11/2024 6:50 AM EDT) TSH 2.30 0.40 - 4.00 mcIU/mL LAB CHEMISTRY METHOD 09/11/2024 8:29 AM EDT [facility] Blood Venous blood specimen / Unknown 09/11/2024 6:50 AM EDT 09/11/2024 7:44 AM EDT us Antonio Mcmillan MD LAB BLOOD ORDERABLES Final Resul t Performing Organization Address City/[facility]/ZIP Co de Phone Number [facility] [address] [place] [address], [place] [phone] * Thyroxine free (09/11/2024 6:50 AM EDT) Free T4 0.84 0.70 - 1.80 ng/dL LAB CHEMISTRY METHOD 09/11/2024 8:29 AM EDT [facility] Blood Venous blood specimen / Unknown 09/11/2024 6:50 AM EDT 09/11/2024 7:44 AM EDT us Antonio Mcmillan MD LAB BLOOD ORDERABLES Final Resul t Performing Organization Address [facility] de Phone Number [facility] [address] [place] [address], [place] [phone] * Valproic acid level, total (09/11/2024 6:50 AM EDT) Pathologist [facility] [place] Valproic Acid, Total 67 50 - 100 mcg/mL LAB CHEMISTRY METHOD 09/11/2024 8:25 AM EDT [facility] Blood Venous blood specimen / Unknown 09/11/2024 6:50 AM EDT 09/11/2024 7:44 AM EDT us Antonio Mcmillan MD LAB BLOOD ORDERABLES Final Resul t Performing Organization Address [facility] de Phone Number [facility] [address] [place] [address], [place] [phone] * (ABNORMAL) Ammonia (09/11/2024 6:50 AM EDT) Ammonia 53(H) 11 - 35 mcmol/L LAB CHEMISTRY METHOD 09/11/2024 8:08 AM EDT [facility] Blood Venous blood specimen / Unknown 09/11/2024 6:50 AM EDT 09/11/2024 7:44 AM EDT us Antonio Mcmillan MD LAB BLOOD ORDERABLES Final Resul t Performing Organization Address City/[facility]/ZIP Co de Phone Number [facility] [address] [place] [address], [place] [phone] * (ABNORMAL) Lipid panel with reflex to direct LDL (09/11/2024 6:50 AM EDT) Cholesterol 138 0 - 200 mg/dL LAB CHEMISTRY METHOD 09/11/2024 8:25 AM EDT [facility] Triglycerides 200(H) 0 - 150 mg/dL LAB CHEMISTRY METHOD 09/11/2024 8:25 AM EDT [facility] HDL 30(L) >=40 mg/dL LAB CHEMISTRY METHOD 09/11/2024 8:25 AM EDT [facility] LDL Calculated 68 0 - 100 mg/dL LAB CHEMISTRY METHOD 09/11/2024 8:25 AM EDT [facility] VLDL Cholesterol Carter 40 mg/dL LAB CHEMISTRY METHOD 09/11/2024 8:25 AM EDT [facility] Non HDL Chol. (LDL+VLDL) 108 <145 mg/dL LAB CHEMISTRY METHOD 09/11/2024 8:25 AM EDT [facility] Chol/HDL Ratio 4.6(H) 0.0 - 4.4 LAB CHEMISTRY METHOD 09/11/2024 8:25 AM EDT [facility] Blood Venous blood specimen / Unknown 09/11/2024 6:50 AM EDT 09/11/2024 7:44 AM EDT us Antonio Mcmillan MD LAB BLOOD ORDERABLES Final Resul t [facility] [address] [place] [address], [place] [phone] * (ABNORMAL) Comprehensive metabolic panel (09/11/2024 6:50 AM EDT) Sodium 140 133 - 145 mmol/L LAB CHEMISTRY METHOD 09/11/2024 8:25 AM EDT [facility] Potassium 4.3 3.5 - 5.5 mmol/L LAB CHEMISTRY METHOD 09/11/2024 8:25 AM [facility] Comment:Hemolysis present Chloride 103 96 - 110 mmol/L LAB CHEMISTRY METHOD 09/11/2024 8:25 AM [facility] CO2 32 21 - 32 mmol/L LAB CHEMISTRY METHOD 09/11/2024 8:25 AM [facility] Anion Gap 5 3 - 11 LAB CHEMISTRY METHOD 09/11/2024 8:25 AM [facility] Glucose 115(H) 70 - 100 mg/dL LAB CHEMISTRY METHOD 09/11/2024 8:25 AM [facility] BUN 9 5 - 25 mg/dL LAB CHEMISTRY METHOD 09/11/2024 8:25 AM [facility] Creatinine 0.65(L) 0.70 - 1.30 mg/dL LAB CHEMISTRY METHOD 09/11/2024 8:25 AM [facility] eGFR 124 >=60 mL/min/1. 73m2 LAB CHEMISTRY METHOD 09/11/2024 8:25 AM [facility] Comment:Calculation based on the??Chronic Kidney Disease Epidemiology Collaboration (CKD-EPI) equation refit??without adjustment for race. BUN/Creatinine Ratio 13.8 LAB CHEMISTRY METHOD 09/11/2024 8:25 AM [facility] Calcium 8.9 8.5 - 10.5 mg/dL LAB CHEMISTRY METHOD 09/11/2024 8:25 AM [facility] AST (SGOT) 54(H) 10 - 42 unit/L LAB CHEMISTRY METHOD 09/11/2024 8:25 AM [facility] Comment:Hemolysis present ALT (SGPT) 65(H) 10 - 60 unit/L LAB CHEMISTRY METHOD 09/11/2024 8:25 AM [facility] Alkaline Phosphatase 66 42 - 121 unit/L LAB CHEMISTRY METHOD 09/11/2024 8:25 AM EDT [facility] Total Protein 6.6 6.0 - 8.0 g/dL LAB CHEMISTRY METHOD 09/11/2024 8:25 AM EDT [facility] Albumin 3.3 3.2 - 5.0 g/dL LAB CHEMISTRY METHOD 09/11/2024 8:25 AM EDT [facility] Total Bilirubin 0.5 0.0 - 1.4 mg/dL LAB CHEMISTRY METHOD 09/11/2024 8:25 AM EDT [facility] Blood Venous blood specimen / Unknown 09/11/2024 6:50 AM EDT 09/11/2024 7:44 AM EDT us Antonio Mcmillan MD LAB BLOOD ORDERABLES Final Resul t [facility] [address] [place] [address], documented in this encounter Visit Diagnoses Diagnosis Diffuse traumatic brain injury with loss of consciousness of unspecified duration, sequela (CMS/HCC) documented in this encounter Care Teams Market Research Associate Relationship Specialty Start Date End Date Antonio Mcmillan MD [address] [place] [address] Dr [address] [place], [place] PCP - General Internal Medicine 08/10/24 documented as of this encounter
--- OUTSIDE RECORDS SUMMARY | 2024-10-02 14:07 | XMS_ITS | Continuity of Care Document ---
Author Organization [facility] Address [address] [place] [address] Phone Care Team Providers Care Program Management Analyst Name Role Phone Nain DIRECTOR OF SAFETY AND SECURITY, Kathy Unavailable Unavailable Allergies, Adverse Reactions, Alerts [...] Health Non Billable Encounter Indiv.Psychotherapy 30 Minutes(16-37) Vt Indiv.Psychotherapy 30 Minutes(16-37) Vt OFFICE VISIT ESTAB PT 10-19 MINS 2021 [...] Oral Exam Dental Caries Radiograph Frst Film Associate Product Integrity Engineer Referral Limit Oral Exam Radiograph Frst Film [...] Diagnoses Date Provider Providers Copied on Encounter [facility], [address] [place] [address], [id number] , tel:[phone] [employer] No Information 3 Nain Kathy. [address] [place], [place], [id number], [place]. tel:[phone] [facility], [address] [place] [address], [id number] , tel:[phone] [employer] [facility] No Information 2 Nain Kathy. [address] [place], [place], [id number], [place]. tel:[phone] [facility], [address] [place], [place], [id number] , tel:[phone] [facility] Major depressv disorder, single episode, in partial remis 2 Adrien Muniz. [address] [place], [address], [place]. tel:[phone] Referring Provider: Kathy Gillette, [address] [place], [address] . tel:[phone] Indiv.Psycho therapy 30 Minutes(16-3 7) [facility] [address] [place] [address], [id number] , [place] tel: [phone] [facility] Major depressv disorder, single episode, in partial remis 2 Adrien Muniz. [address] [place], [address], [place]. tel: [phone] Referring Provider: Kathy Gillette, [address] [place] [address], [address] . tel:[phone] OFFICE VISIT ESTAB PT 30-39 MIN [facility] [address] [place] [address], [id number] , [place] tel: [phone] [facility] Depression (chief complaint)anx iety (chief complaint)tv (chief complaint) Essential hypertensionM ild intermittent asthma without complicationP seudoseizureS evere episode of recurrent major depressive disorder, without psychotic featuresSubst ance abuse 2 Nain Chavez. [address] [place], [place], [id number], [place]. tel: [phone] Referring Provider: Kathy Gillette, [address] [place] [address], [address] . tel:[phone] OFFICE/OUTPA TIENT VISIT EST PT 20-29 MINS [facility] [address] [place] [address], [id number] , [place] tel: [phone] [facility] Follow Up of Anxiety (chief complaint)Fol low Up of depression (chief complaint)Fol low Up of TV (chief complaint) Pseudoseizure Severe episode of recurrent major depressive disorder, without psychotic featuresSubst ance abuseEssentia l hypertensionM ild intermittent asthma without complication 2 Nain Kathy. [address] [place], [place], [id number], [place]. tel: [phone] Referring Provider: Kathy Gillette, [address] [place] [address], [address] . tel:[phone] [facility] [address] [place] [address], [id number] , [place] tel: [phone] [facility] Dental caries on smooth surface penetrating into dentinEncount er for other general examinationEn counter for screening for dental disorders 2 Jimmy Hernandez. [address] [place] [address], [id number], [place]. tel: [phone] Referring Provider: Mary Marquez, [address] [place] [address], [address] . tel:[phone] [employer] [address] [place] [address], [id number] , [place] tel:[phone] [facility] Major depressv disorder, single episode, in partial remis 2 Adrien Muniz. [address] [place] [address], [address], [place]. tel:[phone] Referring Provider: Flavio Ugalde, [address] [place] [address], [address]. tel:[phone] Indiv.Psycho therapy 30 Minutes(16-3 7) [employer] [address] [place] [address], [id number] , [place] tel: [phone] [facility] Major depressv disorder, single episode, in partial remis Sep- 2 Adrien Muniz. [address] [place] [address], [address], [place]. tel:[phone] Referring Provider: Flavio Ugalde, [address] [place] [address], [address]. tel:[phone] Indiv.Psycho therapy 30 Minutes(16-3 7) [employer] [address] [place] [address], [id number] , [place] tel: [phone] [facility] Major depressv disorder, single episode, in partial remis 2 Adrien Muniz. [address] [place] [address], [address], [place]. tel:[phone] Referring Provider: Flavio Ugalde, [address] [place] [address], [facility]. tel:[phone] OFFICE VISIT ESTAB PT 10-19 MINS [facility] [address] [place] [address], [id number] , [place] tel: [phone] [facility] Nose bleeds (chief complaint)TV (chief complaint) Epistaxis 2 Nain Kathy. [address] [place], [place], [id number], [place]. tel:[phone] Referring Provider: Kathy Gillette, [address] [place], [address] . tel:[phone] OFFICE/OUTPA TIENT VISIT EST PT 20- MINS [facility] [address] [place] [address], [id number] , [place] tel: [phone] [facility] back pain (chief complaint) Major depressive disorder, single episode, in partial remissionMild intermittent asthma without complicationP seudoseizureE ssential hypertensionS ubstance use disorderPoste rior chest pain 2 Nain Kathy. [address] [place], [place], [id number], [place]. tel:[phone] Referring Provider: Kathy Gillette, [address] [place], [address] . tel:[phone] OFFICE VISIT ESTAB PT 10-19 MINS [facility] [address] [place] [address], [id number] , [place] tel: [phone] [facility] Letter for immigration (chief complaint) Essential hypertensionM ajor depressive disorder, single episode, in partial remissionMild intermittent asthma without complicationP seudoseizure 2 Nain Kathy. [address] [place], [place], [id number], [place]. tel:[phone] Referring Provider: Kathy Gillette, [address] [place], [address] . tel:[phone] OFFICE/OUTPA TIENT VISIT EST PT 20-29 MINS [facility] [address] [place] [address], [id number] , [place] tel: [phone] [facility] Follow Up of Hypertension (chief complaint) Essential hypertensionM ajor depressive disorder, single episode, in partial remissionMild intermittent asthma without complicationP seudoseizure 2 Nain Kathy. [address] [place], [place], [id number], [place]. tel: [phone] Referring Provider: Kathy Gillette, [address] [place], [address] . tel:[phone] [facility] [address] [place] [address], [id number] , [place] tel: [phone] [facility] Dental caries on smooth surface penetrating into dentinEncount er for other general examination 2 Jimmy Arunrenzo. [address] [place] [address], [id number], [place]. tel: [phone] Referring Provider: Mary Marquez, [address] [place] [address], [address] . tel:[phone] [facility] [address] [place] [address], [id number] , [place] tel: [phone] [address] [place] [address] Medical No Information 2 Patricia franklin RN. [address] [place], [address], [place]. OFFICE/OUTPA TIENT VISIT EST PT 20-29 MINS [facility] [address] [place] [address], [id number] , [place] tel: [phone] [facility] Follow Up of Hypertension (chief complaint) Essential hypertensionM ild intermittent asthma without complicationM ajor depressive disorder, single episode, in partial remissionPseu doseizure 1 Nain Kathy. [address] [place], [place], [id number], [place]. tel: [phone] [facility] [address] [place] [address], [id number] , [place] tel: [phone] [facility] No Information 1 Nain Kathy. [address] [place], [place], [id number], [place]. tel: [phone] [facility] [address] [place] [address], [id number] , [place] tel: [phone] [facility] Pseudoseizure 1 Nain Kahty. [address] [place], [place], [id number], [place]. tel:[phone] OFFICE VISIT ESTAB PT 30-39 MIN [facility] [address] [place] [address], [id number] , [place] tel: [phone] [facility] Back pain (chief complaint)Anx iety (chief complaint)Dep ression (chief complaint) Back pain, unspecified back location, unspecified back pain laterality, unspecified chronicityMaj or depressive disorder, single episode, in partial remissionMild intermittent asthma without complicationE ssential hypertensionP seudoseizure 1 Nain Kathy. [address] [place], [place], [id number], [place]. tel:[phone] Referring Provider: Kathy Gillette, [address] [place] [address], [address] . tel:[phone] [facility] [address] [place] [address], [id number] , tel: [phone] [facility] Deposits [accretions] on teethEncounte r for other general examinationEn counter for screening for dental disordersDent al caries, unspecifiedCh ronic periodontitis , unspecifiedRi sk for dental caries, high 1 Jimmy Hernandez. [address] [place] [address], [id number], [place]. tel: [phone] Referring Provider: Mary Marquez, [address] [place] [address], [address] . tel:[phone] [facility] [address] [place] [address], [id number] , [place] tel: [phone] [facility] No Information 1 Nain Chavez. [address] [place], [place], [id number], [place]. tel: [phone] OFFICE/OUTPA TIENT VISIT EST PT 20-29 MINS [facility] [address] [place] [address], [id number] , [place] tel: [phone] [facility] Follow Up of Anxiety (chief complaint)Fol low Up of Depression (chief complaint)Idalia k pain (chief complaint) Major depressive disorder, single episode, in partial remissionMild intermittent asthma without complicationE ssential hypertensionP seudoseizureB ack pain, unspecified back location, unspecified back pain laterality, unspecified chronicity 1 Nain Chavez. [address] [place], [place], [id number], [place]. tel: [phone] Referring Provider: Kathy Gillette, [address] [place] [address], [address] . tel:[phone] [facility], [address] [place] [address], [id number] , [place] tel: [phone] [address] [place] [address] No Information 1 Provider1 First. . Referring Provider: First Provider1. Indiv.Psycho therapy 30 Minutes(16-3 7) [facility] [address] [place] [address], [id number] , tel: [phone] [facility] Major depressv disorder, single episode, in partial remis 1 Adrien Muniz. [address] [place] [address], [address], [place]. tel:[phone] Referring Provider: Flavio Ugalde, [address] [place] [address], [address]. tel:[phone] OFFICE VISIT ESTAB PT 30-39 MIN [facility] [address] [place] [address], [id number] , [place] tel: [phone] [facility] Follow Up of Depression (chief complaint) Episode of recurrent major depressive disorder, unspecified depression episode severityEssen tial hypertensionP seudoseizureM ild intermittent asthma without complication 1 Nain Chavez. [address] [place], [place], [id number], . tel: [phone] Referring Provider: Kathy Gillette, [address] [place], [address] . tel:[phone] [facility], [address] [place] [address], [id number] , tel: [phone] [address] [place] [address] No Information 1 Provider1 First. . Referring Provider: Provider1. Indiv.Psycho therapy 30 Minutes(16-3 7) [facility] [address] [place] [address], [id number] , tel: [phone] [facility] Major depressv disorder, single episode, in partial remis 1 Adrien Muniz. [address] [place] [address], [address], [place]. tel: [phone] Referring Provider: Flavio Ugalde, [address] [place] [address], [address]. tel:[phone] OFFICE VISIT ESTAB PT 30-39 MIN [facility] [address] [place] [address], [id number] , tel: [phone] [facility] Follow Up of Anxiety (chief complaint)Dep ression (chief complaint) Episode of recurrent major depressive disorder, unspecified depression episode severityPseud oseizureEssen tial hypertensionM ild intermittent asthma without complication 1 Nain Chavez. [address] [place], [place], [id number], [place]. tel: [phone] Referring Provider: Kathy Gillette, [address] [place], [address] . tel:[phone] [facility] [address] [place] [address], [id number] , [place] tel:[phone] [facility] No Information 0 Nain Tuckeria. [address] [place], [place], [id number], [place]. tel: [phone] Referring Provider: Kathy Nain, [address] [place], [address] . tel:[phone] Indiv.Psycho therapy 45 Minutes (38-52) [facility] [address] [place] [address], [id number] , [place] tel: [phone] [facility] Major depressv disorder, single episode, in partial remis 0 Adrien Muniz. [address] [place], [address], [place]. tel: [phone] Referring Provider: Flavio Ugalde, [address] [place] [address], [address]. tel:[phone] Indiv.Psycho therapy 30 Minutes(16-3 7) [facility] [address] [place] [address], [id number] , [place] tel: [phone] [facility] Major depressv disorder, single episode, in partial remis 0 Adrien Muniz. [address] [place], [address], [place]. tel: [phone] Referring Provider: Flavio Ugalde, [address] [place] [address], [address]. tel:[phone] [facility] [address] [place], [place], [id number] , [place] tel: [phone] [facility] No Information 0 Patricia Resendiz. [address] [place], [place], [id number], [place]. tel: [phone] Referring Provider: Astrid Gomez, [address] [place], [address] . tel:[phone] OFFICE/OUTPA TIENT VISIT, EST [facility] [address] [place] [address], [id number] , [place] tel: [phone] [facility] insomnia (chief complaint) Psychophysiol ogical insomnia Sep-1 0 Zheng Márquez. [address] [place] [address], [address], [place]. tel: [phone] Referring Provider: Yulisa Calzada, [address] [place] [address], [address]. tel:[phone] OFFICE/OUTPA TIENT VISIT, EST [facility] [address] [place] [address], [id number] , [place] tel: [phone] [address] [place] [address] hand pain (chief complaint) Hand pain, right Sep-0 0 Ronnell Thapa. [address] [place] [address], [id number], [place]. tel: [phone] Referring Provider: Alanis Reynaga, [address] [place] [address], [address] . tel:[phone] [facility], [address] [place] [address], [id number] , tel: [phone] [facility] No Information Jan- 0 Nain Chavez. [address] [place] [address], [id number], [place]. tel: [phone] Referring Provider: Kathy Gillette, [address] [place] [address], [address] . tel:[phone] [facility], [address] [place] [address], [id number] , [place] tel: [phone] [facility] Major depressv disorder, single episode, in partial remis Cory- 0 Adrien Muniz. [address] [place] [address], [address], [place]. tel: [phone] Referring Provider: Flavio Ugalde, [address] [place] [address], [address]. tel:[phone] OFFICE VISIT ESTAB PT 10 MIN [facility] [address] [place] [address], [id number] , [place] tel: [phone] [facility] COVID (chief complaint) COVID-19 virus infection 0 Nain Kathy. [address] [place], [place], [id number], . tel:[phone] Referring Provider: Kathy Gillette, [address] [place], [address] . tel:[phone] OFFICE VISIT ESTAB PT 10 MIN [facility] [address] [place] [address], [id number] , tel: [phone] [facility] COVID-19 (chief complaint) COVID-19 virus infection 0 Nain Kathy. [address] [place], [place], [id number], . tel:[phone] Referring Provider: Kathy Gillette, [address] [place], [address] . tel:[phone] [facility] [address] [place] [address], [id number] , tel: [phone] [facility] No Information 0 Nain Kathy. [address] [place], [place], [id number], . tel: [phone] Referring Provider: Kathy Gillette, [address] [place], [address] . tel:[phone] OFFICE VISIT ESTAB PT 10 MIN [facility] [address] [place] [address], [id number] , [place] tel: [phone] [facility] Chest pain/ cough (chief complaint) CoughChest pain, unspecified type 0 Nain Kathy. [address] [place], [place], [id number], [place]. tel:[phone] Indiv.Psycho therapy 30 Minutes(16-3 7) [facility] [address] [place] [address], [id number] , [place] tel: [phone] [facility] Major depressv disorder, single episode, in partial remis 0 Adrien Muniz. [address] [place], [address], [place]. tel:[phone] Referring Provider: Flavio Ugalde, [address] [place] [address], [address]. tel:[phone] [facility] [address] [place] [address], [id number] , [place] tel: [phone] [facility] No Information 0 Adrien Muniz. [address] [place] [address], [address], [place]. tel:[phone] Referring Provider: Flavio Ugalde, [address] [place] [address], [facility]. tel:[phone] OFFICE VISIT ESTAB PT 10 MIN [facility] [address] [place] [address], [id number] , tel: [phone] [facility] Thoracic back pain (chief complaint)Ast hma (chief complaint) Shortness of breathHistory of asthmaChronic midline thoracic back painOther chronic pain 0 Nain Chavez. [address] [place] [address], [id number], [place]. tel: [phone] Referring Provider: Kathy Gillette, [address] [place], [address] . tel:[phone] [facility] [address] [place] [address], [id number] , [place] tel: [phone] [facility] Major depressv disorder, single episode, in partial remis 0 Adrien Muniz. [address] [place] [address], [address], [place]. tel:[phone] Referring Provider: Flavio Ugalde, [address] [place] [address], [address]. tel:[phone] [facility] [address] [place] [address], [id number] , tel: [phone] [facility] No Information 0 Jose Allen. [address] [place] [address], [id number], . tel: [phone] Referring Provider: Alejandro Garcia, [address] [place] [address], [address] . tel:[phone] [facility], [address] [place] [address], [id number] , tel: [phone] [facility] No Information 0 Adrien Muniz. [address] [place] [address], [address], [place]. tel: [phone] Referring Provider: Flavio Ugalde, [address] [place] [address], [facility]. tel:[phone] [facility], [address] [place] [address], [id number] , tel: [phone] [facility] Major depressv disorder, single episode, in partial remis 0 Adrien Muniz. [address] [place] [address], [address], [place]. tel: [phone] Referring Provider: Flavio Ugalde, [address] [place] [address], [facility]. tel:[phone] OFFICE VISIT ESTAB PT 10 MIN [facility] [address] [place] [address], [id number] , tel: [phone] [facility] Follow Up of Depression (chief complaint)Dwight h (chief complaint) Major depressive disorder, recurrent, in partial remissionRash of handsEssentia l hypertension Oct- 0 Nain Chavez. [address] [place] [address], [id number], [place]. tel: [phone] Referring Provider: Kathy Gillette, [address] [place] [address], [address] . tel:[phone] [facility] [address] [place] [address], [id number] , tel: [phone] [facility] Major depressv disorder, single episode, in partial remis 0 Adrien Muniz. [address] [place], [address], [place]. tel:[phone] Referring Provider: Flavio Ugalde, [address] [place] [address], [facility]. tel:[phone] [facility] [address] [place] [address], [id number] , [place] tel: [phone] [facility] Major depressv disorder, single episode, in partial remis 0 Adrien Muniz. [address] [place], [address], [place]. tel:[phone] Referring Provider: Flavio Ugalde, [address] [place] [address], [facility]. tel:[phone] Indiv.Psycho therapy 30 Minutes(16-3 7) [facility] [address] [place] [address], [id number] , tel: [phone] [facility] Major depressv disorder, single episode, in partial remis 0 Adrien Muniz. [address] [place] [address], [address], [place]. tel:[phone] Referring Provider: Flavio Ugalde, [address] [place] [address], [facility]. tel:[phone] OFFICE VISIT ESTAB PT 10 MIN [employer] [address] [place] [address], [id number] , tel:[phone] [facility] Follow Up of ER/Seizure (chief complaint) Body mass index (BMI) 31.0-31.9, adultModerate episode of recurrent major depressive disorderHisto ry of seizuresHisto ry of alcohol abuse 0 Nain Kathy. [address] [place], [place], [id number], [place]. tel: [phone] Indiv.Psycho therapy 30 Minutes(163 7) [employer] [address] [place] [address], [id number] , tel: [phone] [facility] Major depressv disorder, single episode, in partial remisAlcohol use, unspecified with intoxication, unspecified 6 0 Adrien Muniz. [address] [place], [address], . tel: [phone] Referring Provider: Flavio Ugalde, [address] [place] [address], [address]. tel:[phone] Indiv.Psycho therapy 30 Minutes(3 7) [employer] [address] [place] [address], [id number] , tel: [phone] [facility] Major depressv disorder, single episode, in partial remis 2 9 Juradosiva Muniz. [address] [place], [address], [place]. tel: [phone] [employer] [address] [place] [address], [id number] , tel: [phone] [facility] Encounter for screening for dental disordersEnco unter for other general examinationRi sk for dental caries, highDental caries, unspecified 8- 9 Jimmy Hernandez. [address] [place] [address], [id number], [place]. tel:[phone] Referring Provider: Mary Marquez, [address] [place] [address], [address] . tel:[phone] Indiv.Psycho therapy 30 Minutes(163 7) [employer] [address] [place] [address], [id number] , tel: [phone] [facility] Major depressv disorder, single episode, in partial remis Apr-3 0-201 9 Adrien Muniz. [address] [place], [address], . tel: [phone] Indiv.Psycho therapy 30 Minutes(16-3 7) [employer] [address] [place], [place], [id number] , [place] tel:[phone] [facility] Major depressv disorder, single episode, in partial remis 3 9 Adrien Muniz. [address] [place], [address], [place]. tel:[phone] Referring Provider: Flavio Ugalde, [address] [place] [address], [address]. tel:[phone] OFFICE/OUTPA TIENT VISIT, EST [employer] [address] [place] [address], [id number] , [place] tel: [phone] [facility] depression (chief complaint) Body mass index (BMI) 31.0-31.9, adultLeft-clary ed chest painPalpitati onsRecurrent major depressive disorder, in remissionEsse ntial hypertension 9 Nain Kathy. [address] [place], [place], [id number], [place]. tel:[phone] Indiv.Psycho therapy 30 Minutes(16-3 7) [employer] [address] [place] [address], [id number] , [place] tel: [phone] [facility] Major depressv disorder, single episode, in partial remis 9 Adrien Muniz. [address] [place], [address], [place]. tel:[phone] Referring Provider: Flavio Ugalde, [address] [place], [address]. tel:[phone] Indiv.Psycho therapy 30 Minutes(16-3 7) [employer] [address] [place] [address], [id number] , [place] tel:[phone] [facility] Major depressv disorder, single episode, in partial remis 9 Adrien Muniz. [address] [place], [address], [place]. tel:[phone] Referring Provider: Flavio Ugalde, [address] [place], [address]. tel:[phone] Indiv.Psycho therapy 45 Minutes (38-52) [facility] [address] [place] [address], [id number] , [place] tel: [phone] [facility] Major depressv disorder, single episode, in partial remis 9 Adrien Muniz. [address] [place], [address], [place]. tel: [phone] Referring Provider: Flavio Ugalde, [address] [place] [address], [address]. tel:[phone] OFFICE/OUTPA TIENT VISIT, [facility] [address] [place] [address], [id number] , [place] tel: [phone] [facility] Anxiety (chief complaint) Body mass index (BMI) 31.0-31.9, adultPolycyth emiaMild intermittent asthma without complicationM ajor depressive disorder, recurrent, in partial remissionSeiz ures 9 Nain Kathy. [address] [place], [place], [id number], [place]. tel: [phone] OFFICE/OUTPA TIENT VISIT, [facility] [address] [place] [address], [id number] , [place] tel: [phone] [facility] Follow Up of Anxiety (chief complaint) Body mass index (BMI) 31.0-31.9, adultEpilepsy , unspecified, not intractable, without status epilepticusBi polar 1 disorder 9 Nain Kathy. [address] [place], [place], [id number], [place]. tel: [phone] Indiv.Psycho therapy 45 Minutes (38-52) [facility] [address] [place] [address], [id number] , [place] tel: [phone] [facility] Major depressv disorder, single episode, in partial remis 9 Melissa Falcon. [address] [place], [address], [place]. tel:[phone] FAMILY/COUPL E THARAPY 45-60 MIN. [employer] [address] [place] [address], [id number] , [place] tel: [phone] [facility] Major depressv disorder, single episode, in partial remisBipolar schizoaffecti ve psychosis 9 Jurado Flavio. [address] [place], [address], [place]. tel: [phone] Referring Provider: Flavio Ugalde, [address] [place], [address]. tel:[phone] Indiv.Psycho therapy 45 Minutes (38-52) [facility] [address] [place], [place], [id number] , [place] tel: [phone] [facility] Major depressv disorder, single episode, in partial remisCocaine dependence, in remissionCann abis dependence, in remissionAlco hol dependence, in remission 9 Adrien Muniz. [address] [place], [address], [place]. tel: [phone] OFFICE/OUTPA TIENT VISIT, EST [employer] [address] [place] [address], [id number] , [place] tel: [phone] [facility] Follow Up of Anxiety (chief complaint) Body mass index (BMI) 30.0-30.9, adultModerate episode of recurrent major depressive disorderAnxie tySeizures 9 Nain Chavez. [address] [place], [place], [id number], [place]. tel:[phone] Referring Provider: Kathy Gillette, [address] [place], [address] . tel:[phone] [employer] [address] [place] [address], [id number] , [place] tel:[phone] [facility] Encounter for screening for dental disordersEnco unter for other general examination 9 Jimmy Hernandez. [address] [place] [address], [id number], . tel: [phone] Referring Provider: Mary Marquez, [address] [place] [address], [address] . tel:[phone] OFFICE VISIT ESTAB PT 25 MIN [employer] [address] [place] [address], [id number] , [place] tel: [phone] [facility] Follow Up of MDD (chief complaint) Body mass index (BMI) 32.0-32.9, adultMajor depressive disorder, recurrent, in partial remissionEpil epsy, unspecified, not intractable, without status epilepticusMi ld intermittent asthma without complicationE ssential hypertension 8 Shira Begum. [address] [place], [place], [id number], . tel: [phone] [employer] [address] [place] [address], [id number] , tel: [phone] [facility] Major depressive disorder, recurrent, in partial remission 8 No Information Referring Provider: Benoit Gooden , [address] [place] [address], [address] . tel:[phone] [employer] [address] [place] [address], [id number] , tel: [phone] [facility] Major depressive disorder, recurrent, in partial remission 8 No Information [employer] [address] [place] [address], [id number] , [place] tel: [phone] [facility] Epilepsy, unspecified, not intractable, without status epilepticusMa kvng depressive disorder, recurrent, in partial remission Fe0 8 No Information Referring Provider: Benoit Gooden , [address] [place] [address], [address] . tel:[phone] [employer] [address] [place] [address], [id number] , tel: [phone] [facility] Dental examination 8 Gilberto Mccall. [address] [place] [address], [id number], [place]. tel: [phone] Referring Provider: Cal Macias, [address] [place] [address], [id number] . tel:[phone] [employer] [address] [place] [address], [id number] , tel: [phone] [facility] examination 8 Gilberto Mccall. [address] [place] [address], [id number], [place]. tel: [phone] Referring Provider: Cal Macias, [address] [place] [address], [id number] . tel:[phone] OFFICE VISIT ESTAB PT 25 MIN [employer] [address] [place] [address], [id number] , tel: [phone] [facility] nose bleeds (chief complaint) Obesity, unspecifiedAc reese non-recurrent ethmoidal sinusitisEpil epsy, unspecified, not intractable, with status epilepticus 8 Giacomo Laboy. [address] [place] [address], [id number], [place]. tel: [phone] Referring Provider: Benoit Gooden , [address] [place] [address], [address] . tel:[phone] [employer] [address] [place] [address], [id number] , [place] tel: [phone] [facility] examination 7 Demenezes Paola. [address] [place] [address], [address], [place]. tel: [phone] Referring Provider: Katie Mcbride, [address] [place] [address], [address]. tel:[phone] [employer] [address] [place] [address], [id number] , [place] tel: [phone] [facility] Epilepsy, unspecified, not intractable, without status epilepticusBi polar disorder, unspecified 7 No Information [employer] [address] [place] [address], [id number] , [place] tel: [phone] [facility] Bipolar disorder, unspecified No Information [employer] [address] [place] [address], [id number] , [place] tel: [phone] [facility] examination 7 Macias Cal. [address] [place] [address], [id number], [place]. tel: [phone] Referring Provider: Cal Macias[address], [address] . tel:[phone] [employer] [address] [place] [address], [id number] , [place] tel: [phone] [facility] Bipolar disorder, unspecifiedEp ilepsy, unspecified, not intractable, without status epilepticus No Information OFFICE/OUTPA TIENT VISIT, EST [employer] [address] [place] [address], [id number] , [place] tel: [phone] [facility] of Bipolar disorder (chief complaint) Obesity, unspecifiedBi polar disorder, unspecifiedEp ilepsy, unspecified, not intractable, without status epilepticusEs sential hypertensionF atigue, unspecified type Giacomo Laboy. [address] [place] [address], [id number], [place]. tel: [phone] Referring Provider: Benoit Gooden , [address] [place] [address], [address] . tel:[phone] [employer] [address] [place] [address], [id number] , [place] tel: [phone] [facility] Bipolar disorder, unspecifiedEp ilepsy, unspecified, not intractable, without status epilepticus No Information Referring Provider: Benoit Gooden , [address] [place] [address], [address] . tel:[phone] OFFICE/OUTPA TIENT VISIT, [employer] [address] [place] [address], [id number] , [place] tel: [phone] [facility] of seizure (chief complaint)Fol low Up of Bipolar disorder (chief complaint) Obesity, unspecifiedBi polar disorder, unspecifiedEp ilepsy, unspecified, not intractable, without status epilepticus Patricia Resendiz. [address] [place] [address], [id number], [place]. tel: [phone] Referring Provider: Benoit Gooden , [address] [place] [address], [address] . tel:[phone] [employer] [address] [place] [address], [id number] , [place] tel: [phone] [facility] Bipolar disorder, unspecifiedEp ilepsy, unspecified, not intractable, without status epilepticus No Information OFFICE/OUTPA TIENT VISIT, [employer] [address] [place] [address], [id number] , [place] tel: [phone] [facility] of epilepsy (chief complaint) Bipolar disorder, unspecifiedEp ilepsy, unspecified, not intractable, without status epilepticus 7 Giacomo Laboy. [address] [place] [address], [id number], [place]. tel: [phone] Referring Provider: Benoit Gooden , [address] [place] [address], [address] . tel:[phone] [employer] [address] [place] [address], [id number] , [place] tel: [phone] [facility] examination [address], [id number], [place]. tel: [phone] Referring Provider: Cal Macias, [address] [place] [address], [address] . tel:[phone] [employer] [address] [place] [address], [id number] , tel: [phone] [facility] 7 Taylor Mukherjeelpa. [address] [place] [address], [id number], [place]. tel:[phone] Referring Provider: Kaite Mcbride, [address] [place] [address], [id number]. tel:[phone] [employer] [address] [place] [address], [id number] , tel: [phone] [facility] Epilepsy, unspecified, not intractable, without status epilepticus 6 No Information [employer] [address] [place] [address], [id number] , [place] tel: [phone] [facility] examination 6 [facility]. [address] [place] [address], [id number], [place]. tel: [phone] Referring Provider: Katie Mcbride, [address] [place] [address], [address]. tel:[phone] OFFICE/OUTPA TIENT VISIT, EST [employer] [address] [place] [address], [id number] , [place] tel: [phone] [facility] of epilepsia (chief complaint) Bipolar disorder, unspecifiedEp ilepsy, unspecified, not intractable, without status epilepticusSh ortness of breath 6 Giacomo Laboy. [address] [place] [address], [id number], [place]. tel: [phone] Referring Provider: Benoit Gooden , [address] [place] [address], [address] . tel:[phone] [employer] [address] [place] [address], [id number] , tel: [phone] [facility] examination Mar- 6 Reed Wilson. [address] [place] [address], [address], [place]. tel:[phone] Referring Provider: Katie Mcbride, [address] [place] [address], [address]. tel:[phone] [employer] [address] [place] [address], [id number] , [place] tel: [phone] [facility] examination Feb-2 6 Reed Wilson. [address] [place] [address], [address], [place]. tel:[phone] Referring Provider: Katie Mcbride, [address] [place] [address], [address]. tel:[phone] OFFICE/OUTPA TIENT VISIT, EST [employer] [address] [place] [address], [id number] , [place] tel: [phone] [facility] Follow Up of ER (chief complaint) Epilepsy, unspecified, not intractable, without status epilepticusBi polar disorder, unspecified 6 Giacomo Laboy. [address] [place] [address], [id number], [place]. tel:[phone] Referring Provider: Benoit Gooden , [address] [place] [address], [address] . tel:[phone] [employer] [address] [place] [address], [id number] , [place] tel: [phone] [facility] Bipolar disorder, unspecified Feb-0 6 No Information Indiv.Psycho therapy 30 Minutes [employer] [address] [place] [address], [id number] , [place] tel: [phone] [facility] Major depressv disorder, single episode, in partial remisCocaine dependence, in remissionCann abis dependence, in remissionAlco hol dependence, in remission 6 Seth Mckenzie. [address] [place], [address], [place]. tel: [phone] Referring Provider: Benoit Gooden , [address] [place] [address], [address] . tel:[phone] OFFICE/OUTPA TIENT VISIT, EST [employer] [address] [place] [address], [id number] , [place] tel: [phone] [facility] of Shortness of breath (chief complaint) Epilepsy, unspecified, not intractable, without status epilepticusSh ortness of breathRash of hands 6 Giacomo Laboy. [address] [place] [address], [id number], [place]. tel: [phone] Referring Provider: Benoit Gooden , [address] [place] [address], [address] . tel:[phone] [employer] [address] [place] [address], [id number] , tel: [phone] [facility] Major depressive disorder, recurrent, in partial remission November-0 6 No Information Indiv. Diag. Evaluation (Physician) [employer] [address] [place] [address], [id number] , tel: [phone] [facility] Major depressv disorder, single episode, in partial remisCocaine dependence, in remissionCann abis dependence, in remissionAlco hol dependence, in remission 6 Gurmeet Woodard. [address] [place], [address], [place]. tel: [phone] Referring Provider: Benoit Gooden , [address] [place] [address], [address] . tel:[phone] [employer] [address] [place] [address], [id number] , tel: [phone] [facility] examination Sep- 6 Reed Katie. [address] [place] [address], [facility], . tel:[phone] Referring Provider: Katie Mcbride, [address] [place] [address], [facility]. tel:[phone] OFFICE VISIT ESTAB PT 25 MIN [employer] [address] [place] [address], [id number] , tel: [phone] [facility] of Hypertension (chief complaint)Fol low Up of B/L arm swelling (chief complaint) Arm swellingBipol ar disorder, unspecifiedEp ilepsy, unspecified, not intractable, without status epilepticusEs sential hypertensionS hortness of breath 6 Giacomo Laboy. [address] [place] [address], [id number], . tel: [phone] Referring Provider: Benoit Gooden , [address] [place] [address], [address] . tel:[phone] Indiv.Psycho therapy 30 Minutes [employer], [address] [place] [address], [id number] , tel: [phone] [facility] Major depressive disorder, recurrent, in partial remission Sep- 6 Ann Khushi. [address] [place], [address], [place]. tel: [phone] Referring Provider: Benoit Gooden , [address] [place] [address], [address] . tel:[phone] Indiv.Psycho therapy 45 Minutes [employer] [address] [place] [address], [id number] , tel: [phone] [facility] Major depressive disorder, recurrent, in partial remission Sep-0 - 6 Ann Khushi. [address] [place], [address], [place]. tel: [phone] Referring Provider: Benoit Gooden , [address] [place] [address], [address] . tel:[phone] PREVENT VISIT EST [employer] [address] [place] [address], [id number] , tel: [phone] [facility] Preventive exam (chief complaint) Encounter for general adult medical examination without abnormal findingsBipol ar disorder, unspecifiedEp ilepsy, unspecified, not intractable, without status epilepticusEs sential hypertensionA rm swellingTight ness in chest 6 Giacomo Abadkade. [address] [place] [address], [id number], [place]. tel: [phone] Referring Provider: Benoit Gooden , [address] [place] [address], [address] . tel:[phone] Indiv.Psycho therapy 45 Minutes [employer] [address] [place] [address], [id number] , tel: [phone] [facility] Major depressive disorder, recurrent, in partial remission 6 Seth Mckenzie. [address] [place], [address], [place]. tel: [phone] Referring Provider: Benoit Gooden , [address] [place] [address], [address] . tel:[phone] Indiv.Psycho therapy 45 Minutes [employer] [address] [place] [address], [id number] , [place] tel: [phone] [facility] Major depressive disorder, recurrent, in partial remission 6 Seth Vuia. [address] [place], [address], [place]. tel: [phone] Referring Provider: Benoit Gooden , [address] [place] [address], [address] . tel:[phone] [employer] [address] [place] [address], [id number] , [place] tel: [phone] [facility] examination 5 Reed Wilson. [address] [place] [address], [address], [place]. tel: [phone] Referring Provider: Lela Mojica, [address] [place] [address], [address]. tel:[phone] Indiv.Psycho therapy 30 Minutes [employer] [address] [place] [address], [id number] , [place] tel: [phone] [facility] Major depressive disorder, recurrent, in partial remission 5 Ann Khushi. [address] [place] [address], [address], [place]. tel: [phone] Referring Provider: Lela Mojica, [address] [place] [address], [address]. tel:[phone] Indiv.Psycho therapy 45 Minutes [employer] [address] [place] [address], [id number] , [place] tel: [phone] [facility] Major depressive disorder, recurrent, in partial remission 5 Annshanika Mckenzie. [address] [place] [address], [address], [place]. tel: [phone] Referring Provider: Lela Mojica, [address] [place] [address], [address]. tel:[phone] OFFICE/OUTPA TIENT VISIT, EST [employer] [address] [place] [address], [id number] , [place] tel: [phone] [facility] Up of Depression (chief complaint) Epilepsy, unspecified, not intractable, with status epilepticusMa kvng depressive disorder, recurrent, in partial remission 5 Galina Vogel. [address] [place] [address], [address], [place]. tel: [phone] Referring Provider: Lela Mojica, [address] [place] [address], [address]. tel:[phone] [employer] [address] [place] [address], [id number] , [place] tel: [phone] [facility] Other depressive episodes 5 No Information [facility] [address] [place] [address], [id number] , [place] tel: [phone] [facility] examination 5 [place], . Referring Provider: Lela Mojica, [address] [place] [address], [address]. tel:[phone] Indiv.Psycho therapy 45 Minutes [facility] [address] [place] [address], [id number] , [place] tel: [phone] [facility] Major depressive disorder, recurrent, in partial remission 5 [facility]. [address] [place], [address], [place]. tel: [phone] Referring Provider: Lela Mojica, [address] [place] [address], [address]. tel:[phone] Psychiatric Diagnostic Evaluation ( Non MD) [facility] [address] [place] [address], [id number] , [place] tel: [phone] [facility] DepressionNon dependent alcohol abuse, unspecified drinking behavior 5 [facility]. [address] [place] [address], [address], [place]. tel: [phone] Referring Provider: Lela Mojica, [address] [place] [address], [address]. tel:[phone] OFFICE/OUTPA TIENT VISIT, EST [facility] [address] [place] [address], [id number] , [place] tel: [phone] [facility] depression (chief complaint)sei zures (chief complaint) DepressionSei zure disorder 5 [facility]. [address], [place], [id number], [place]. tel:[phone] Referring Provider: Lela Mojica, [address] [place], [address]. tel:[phone] [employer] [address] [place] [address], [id number] , [place] tel: [phone] [facility] examination 5 Reed Katie. [address] [place] [address], [place], [address], [place]. tel: [phone] Referring Provider: Flavio Berg, [address] [place] [address], [address]. tel:[phone] [employer] [address] [place] [address], [id number] , [place] tel: [phone] [facility] Bipolar 1 disorderPolys ubstance dependence 5 No Information OFFICE/OUTPA TIENT VISIT, [facility] [employer] [address] [place] [address], [id number] , [place] tel: [phone] [facility] Follow Up of ED (chief complaint) Seizure disorderPolys ubstance dependenceBip olar 1 disorder 5 Galina Vogel. [address] [place] [address], [address], [place]. tel: [phone] Referring Provider: Lela Mojica, [address] [place] [address], [address]. tel:[phone] [employer] [address] [place] [address], [id number] , [place] tel: [phone] [facility] Seizure disorder 4 Galina Vogel. [address] [place] [address], [address], [place]. tel: [phone] OFFICE/OUTPA TIENT VISIT, [facility] [address] [place] [address], [id number] , [place] tel: [phone] [facility] Acute Liver Injury (chief complaint) RUQ painLiver injury 4 Galina Vogel. [address] [place] [address], [address], [place]. tel: [phone] [employer] [address] [place] [address], [id number] , tel: [phone] [facility] examination 4 Bhattachary a Ana. [address] [place], [address], [place]. tel:[phone] [employer] [address] [place] [address], [id number] , tel: [phone] [facility] No Information 4 [facility]. [address] [place], [address], [place]. tel: [phone] PREVENT VISIT NEW AGE 18-39 [employer] [address] [place] [address], [id number] , tel: [phone] [facility] Preventive exam (chief complaint) ROUTINE MEDICAL EXAMSeizure disorderNeed for prophylactic vaccination with unspecified combined vaccine 4 Galina Vogel. [address] [place] [address], [address], [place]. tel: [phone] [facility], [address] [place] [address], [id number] , tel: [phone] Administrati on - [facility] No Information [facility] [employer]. , [place], [address], . Family History Family Member Type Diagnosis Age At Onset Mother Problem (finding) seizure disorder Brother Problem (finding) Alive and well Sister Problem (finding) Alive and well Father Problem (finding) Alive and well Immunizations Vaccine Date Status Comments COVID-19 PF PFR administered Source: [facility] Flu Vaccine ([id number]) administered Sour ce: New Immunization Record Flu (age 3 and above) administered Source : New Immunization Record Fluarix (ADULTS 19 - 64 y/o) administered Source: New Immunization Record Tdap administered Source: New Imm unization Record Tdap pending Source: New Imm unization Record Payers Payer name Insurance type Covered alliance party ID Authoriza tion(s) [facility] CI [id number] [facility] CI [id number] [facility] CI [id number] Medicaid [id number] Medicaid [id number] Social History Type Description Quantity Date Captured [...] Lifestyle education regardin g diet completed Goal Potassium. Due on 8 due Goal Creatinine. Due on 18 due Goal Depression scree lilia. Due on due Goal Suicide risk ass essment. Due on due Goal ECG. Due on due Goal PHQ9. Due on due Goal Dietary manageme nt education, guidance, and counseling completed Goal ECG. Due on due Goal Depression scree lilia. Due on due Goal Influenza vaccine. Due on due Goal Potassium. Due on 8 due Goal PHQ9. Due on due Goal Suicide risk ass essment. Due on due Goal Creatinine. Due on due Goal Creatinine. Due on due Goal ECG. Due on due Goal Depression scree lilia. Due on due Goal PHQ9. Due on due Goal Influenza vaccine. Due on due Goal Suicide risk ass essment. Due on due Goal Potassium. Due on 8 due Goal Suicide risk ass essment. Due [...] due Goal PHQ9. Due on due Goal Creatinine. Due on [...] due Goal PHQ9. Due on due Goal Creatinine. Due on [...] Consult ordered Referral Ordered: Referrals: Psychiatry. Location: [facility]. Consult ordered Referral Ordered: Referrals: Cardiology. Diagnostic [...] Future Order: Lab Order CHEST 2 VW ([id number]), Sent on: Sent History Of Present Illness Encounter Date Complaint History Of Prese nt Illness Depression The patient repo rts functioning as somewhat difficult. The Global Assessment of Functioning Scale (GAF) = 59. The patient presents with difficulty concentrating but denies anxious/fearful thoughts, compulsive thoughts, decreased need for sleep, depressed mood, difficulty falling asleep, easily startled, excessive worry, fatigue, increased energy, paranoia or thoughts of or suicide. anxiety tv This is a phone visit conducted during the COVID 19 Pandemic. Pt agrees to phone visit with Provider. Comments: Pt was scheduled for in office hypertension follow-up but states he forgot to call [employer] for a ride so needs to change [...] Pt fol lowing up, he was at [facility] from 10/17/2021- 10/20/2021 for passive SI. He initially went to ED with worsening depression and seizures. 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 Pt was discharged from hospital to crisis stabilization unit at [facility]. He was discharged home on Tuesday10/25/2021. He is back at his Uncle's house. He states he is experiencing some continued depression but no SI. Pt plans to follow-up with [facility] on 11/06/2021 as scheduled. TV This is [...] staying asleep, feelings of guilt or paranoia. Depression Comments: This i s a phone visit conducted during the pandemic. Pt agrees to phone visit with provider.Pt with low back pain on both sides, more to the right side. No radiation. It is worse with prolonged sitting or standing.Pt is using acetaminophen with some effect. Follow Up of Anxiety The patient reports functioning as very difficult. The Global Assessment of Functioning Scale (GAF) = 59. The patient presents with anxious/fearful thoughts, depressed mood, difficulty concentrating, excessive worry and fatigue but denies compulsive thoughts, decreased need for sleep or difficulty falling asleep. Back pain (comments) Pain is wor se [...] drug or ETOH use. Follow Up of Depression Back pain Onset: [...] keep follow-up appts.On 10/02/2020 pt went to [facility] with altered mental status, which [...] does not yet have an appt with [facility].He also endorses issues with memory, states his uncle advised him to mention this to me. Follow Up of Anxiety (comments) This is a phone visit conducted during the COVID- pandemic. Pt agrees to phone visit with provider.Following up with patient after recent hospitalization at [facility] from 10/02/2020- 10/31/2020 for depression [...] keep follow-up appts.On 10/02/2020 pt went to [facility] with altered mental status, which [...] house door closed on pt's hand. COVID (comments) This is a phone visit [...] about possible COVID-19 exposure at a family alliance party this week but did not hear of [...] an increase in shortness of breath. Rash (comments) Pt endorses some itchy rash on his arms and hands, states he had this before and hydrocortisone worked well for him. Rash Follow Up of Depression Follow Up of [...] did not go to see neurology in [place] because it is far and he has a lot going on at home. He states he knows he needs to call [facility] once he reschedules his appt.Pt states he [...] the past 2 weeks. Follow Up of Bipolar disorder Th e patient presents with depressed mood and diminished interest or pleasure but denies difficulty concentrating, fatigue, feelings of guilt, loss of appetite, restlessness or thoughts of or suicide. Follow Up of seizure Follow Up of epilepsy (comments) patient has been unable to see neuro, missed one appt and then that group stopped taking his insurance, has outstanding bill at another facility so unable to be seen there, and he has not heard back from [facility] neuro clinic to schedule. [facility] Jerome has been assisting patient with [...] epilepsia Follow Up of ER (comments) was mikael del castillo in ED for seizure activity in october, [...] breath Episodes occur intermittently. Follow Up of B/L arm swelling pt reports resolution of sx since last visit. Follow Up of Hypertension Risk f actors include male gender. Pertinent negatives include chest pain and headache. Preventive exam (comments) PMH:b ipolar d/o: stable [...] Follow Up of ED Pt. was at [facility] from 09/12/14-10/31/14 d/c to [facility] in [place], [place] after a suicide attempt. Attd. LYNNE: Rater [phone]. was dx with bipolar, polysubstance dependence, seizure disorder. He does not have outpt. psychiatry appt. for medication mgt. He is on 9 different medications. Acute Liver Injury Pt. was hospi talized at [facility] from 05/06/14-05/08/14 due to abd. pain [...] complication Follow-up with Dr Nel serrano at [place] on 12/18/2021 as scheduled.Continue Fluoxetine, Bupropion, and [...] groggy.Pt is interested in re-establishing counseling with [facility]. 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 Advised pt to discuss with his [place] plate conditioner what the plan is for new prescriber. Related to Major depressive disorder, single episode, in partial remission Continue QVar and albuterol Rela maureen to Mild intermittent asthma without complication Continue Lisinopril 10mg Follow-up in office, please [...] to Essential hypertension Continue following w ith [place]- pt was seeing Dr Krishnan but will need new psychiatrist as he left.Venlafaxine 150mg daily and Trazodone 100mg nightly per psychiatry, refills sent today while pt is waiting on new psychiatrist. Advised pt to discuss with his [place] plate conditioner what the plan is for new prescriber. 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 Related to Episode of recurrent major depressive disorder, unspecified depression episode severity Continue Lisinopril 10mg Related to Essential hypertension Continue Lisinopril 10mg Related to Essential hypertension Keppra and Depakote stopped by inpatient neurology as they were likely contributing to confusion. 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 Home Health Team, referral to .Trazodone [...] current medication regimen, pt to follow-up with psychodramatist. Related to Recurrent major depressive disorder, in [...] he was seen by him at the [facility] partial program. Pt will need [...] improve. Related to Acute non-recurrent ethmoidal sinusitis DO NOT MISS NEURO APPOINTMENT. R elated to Epilepsy, unspecified, not intractable, with status epilepticus Dietary needs education Related to Obesity, unspecified [...] as needed.referral to [facility]. Related to Bipolar disorder, unspecified Dietary needs [...] unspecified continue current med ications.warm handoff to [facility] Jerome to assist in getting patient in with new neurology.no recent seizure d/o. Related to Epilepsy, unspecified, not intractable, without status epilepticus continue albuterol.w e will get the PFT results and make adjustments accordingly. Related to Shortness of breath continue trazodone a nd quetiapine.continue f/u with provider for ECT. Related to Bipolar disorder, unspecified continue divaloprex. call [facility] neurology today to reschedule --> [phone]. Related to Epilepsy, unspecified, not intractable, without [...] of hands call to make neuro a ppt:[facility] [id number] [place], [place] [id number] current meds. Related to Epilepsy, unspecified, not [...] the from to get the notes from [facility] Related to Depression Assessments Type Assessment Date No Information Patient Care Teams Name Effective Dates (start - stop) Status Members No Information
--- OUTSIDE RECORDS SUMMARY | 2024-10-02 14:07 | XMS_ITS | Continuity of Care Document ---
Author Organization [facility] Care Team Address [address] [place] [address] Phone Care Team Providers Care Histologist Name Role Phone Provider1, First Unavailable Unavailable Advance Directives Directive Yes / No Effective Date File Name No Information Encounters Encounter Description Practice Location Reason(s) For Visit Diagnoses Date Provider Providers Copied on Encounter [facility] Team, [address] [place] [address], [facility], [place] tel:[phone] [facility] No Information Provider1 First. . Family History [...]
--- OUTSIDE RECORDS SUMMARY | 2024-10-02 14:07 | XMS_ITS | Encounter Summary ---
Author Organization [facility] Address [address] [place] [address] Care Team Providers Care Appointment Scheduler Name Role Phone Antonio Mcmillan MD Primary Care Provider [phone] Encounter Details Date Type Department Care Team (Late st Contact Info) Description 06/05/2024 Lab Requisition [facility] - Main Lab [address] [facility] [place] [address] Antonio Mcmillan MD [address] [place] [address] [address] [place], [place] Diffuse traumatic brain injury with loss [...] (ABNORMAL) CBC auto differential (06/05/2024 6:00 AM [facility]) [facility] WBC 4.8 4.8 - 10.8 K/mcL LAB HEMETOLOGY METHOD 06/05/2024 7:01 AM [facility] RBC 4.70 4.50 - 5.50 M/mcL LAB HEMETOLOGY METHOD 06/05/2024 7:01 AM [facility] Hemoglobin 14.0 13.5 - 17.5 g/dL LAB HEMETOLOGY METHOD 06/05/2024 7:01 AM [facility] Hematocrit 45.0 42.0 - 54.0 % LAB HEMETOLOGY METHOD 06/05/2024 7:01 AM [facility] MCV 95.9 79.0 - 98.0 FL LAB HEMETOLOGY METHOD 06/05/2024 7:01 AM [facility] MCH 29.9 27.0 - 32.0 pcg LAB HEMETOLOGY METHOD 06/05/2024 7:01 AM [facility] MCHC 31.1(L) 32.0 - 37.0 g/dL LAB HEMETOLOGY METHOD 06/05/2024 7:01 AM [facility] RDW 13.9 11.0 - 15.0 % LAB HEMETOLOGY METHOD 06/05/2024 7:01 AM [facility] Platelets 175 130 - 400 K/mcL LAB HEMETOLOGY METHOD 06/05/2024 7:01 AM [facility] MPV 9.5 7.0 - 11.0 FL LAB HEMETOLOGY METHOD 06/05/2024 7:01 AM [facility] NRBC 0.0 <1.0 % LAB HEMETOLOGY METHOD 06/05/2024 7:01 AM [facility] NRBC Absolute 0.00 <0.10 K/mcL LAB HEMETOLOGY METHOD 06/05/2024 7:01 AM [facility] Neutrophils Relative 43.8 % LAB HEMETOLOGY METHOD 06/05/2024 7:01 AM [facility] Lymphocytes Relative 44.9 % LAB HEMETOLOGY METHOD 06/05/2024 7:01 AM [facility] Monocytes Relative 10.1 % LAB HEMETOLOGY METHOD 06/05/2024 7:01 AM [facility] Eosinophils Relative 0.4 % LAB HEMETOLOGY METHOD 06/05/2024 7:01 AM [facility] Basophils Relative 0.2 % LAB HEMETOLOGY METHOD 06/05/2024 7:01 AM [facility] Immature Granulocytes Relative 0.6 % LAB HEMETOLOGY METHOD 06/05/2024 7:01 AM [facility] Neutrophils Absolute 2.09 1.50 - 7.00 K/mcL LAB HEMETOLOGY METHOD 06/05/2024 7:01 AM [facility] Lymphocytes Absolute 2.14 1.00 - 5.00 K/mcL LAB HEMETOLOGY METHOD 06/05/2024 7:01 AM [facility] Monocytes Absolute 0.48 0.20 - 1.00 K/mcL LAB HEMETOLOGY METHOD 06/05/2024 7:01 AM [facility] Eosinophils Absolute 0.02 0.00 - 0.50 K/mcL LAB HEMETOLOGY METHOD 06/05/2024 7:01 AM [facility] Basophils Absolute 0.01 0.00 - 0.20 K/mcL LAB HEMETOLOGY METHOD 06/05/2024 7:01 AM [facility] Immature Granulocytes Absolute 0.03 0.00 - 0.03 K/mcL LAB HEMETOLOGY METHOD 06/05/2024 7:01 AM [facility] Blood Venous blood specimen / Unknown 06/05/2024 6:00 AM EST 06/05/2024 6:45 AM EST us Antonio Mcmillan MD LAB BLOOD ORDERABLES Final Resul t Performing Organization Address [facility]/ZIP Co de Phone Number [facility] [address] [place] [address], [place] [phone] * (ABNORMAL) Ammonia (06/05/2024 6:00 AM EST) Ammonia 82(H) 11 - 35 mcmol/L LAB CHEMISTRY METHOD 06/05/2024 7:14 AM [facility] Blood Venous blood specimen / Unknown 06/05/2024 6:00 AM EST 06/05/2024 6:45 AM EST us Antonio Mcmillan MD LAB BLOOD ORDERABLES Final Resul t Performing Organization Address [facility] de Phone Number [facility] [address] [place] [address], [place] [phone] * (ABNORMAL) Comprehensive metabolic panel (06/05/2024 6:00 AM EST) Pathologist [facility] Sodium 141 133 - 145 mmol/L LAB CHEMISTRY METHOD 06/05/2024 7:23 AM [facility] Potassium 4.4 3.5 - 5.5 mmol/L LAB CHEMISTRY METHOD 06/05/2024 7:23 AM [facility] Chloride 102 96 - 110 mmol/L LAB CHEMISTRY METHOD 06/05/2024 7:23 AM [facility] CO2 34(H) 21 - 32 mmol/L LAB CHEMISTRY METHOD 06/05/2024 7:23 AM [facility] Anion Gap 5 3 - 11 LAB CHEMISTRY METHOD 06/05/2024 7:23 AM [facility] Glucose 133(H) 70 - 100 mg/dL LAB CHEMISTRY METHOD 06/05/2024 7:23 AM [facility] BUN 8 5 - 25 mg/dL LAB CHEMISTRY METHOD 06/05/2024 7:23 AM [facility] Creatinine 0.68(L) 0.70 - 1.30 mg/dL LAB CHEMISTRY METHOD 06/05/2024 7:23 AM [facility] eGFR 124 >=60 mL/min/1. 73m2 LAB CHEMISTRY METHOD 06/05/2024 7:23 AM [facility] Comment:Calculation based on the??Chronic Kidney Disease Epidemiology Collaboration (CKD-EPI) equation refit??without adjustment for race. BUN/Creatinine Ratio 11.8 LAB CHEMISTRY METHOD 06/05/2024 7:23 AM [facility] Calcium 9.3 8.5 - 10.5 mg/dL LAB CHEMISTRY METHOD 06/05/2024 7:23 AM [facility] AST (SGOT) 38 10 - 42 unit/L LAB CHEMISTRY METHOD 06/05/2024 7:23 AM [facility] ALT (SGPT) 59 10 - 60 unit/L LAB CHEMISTRY METHOD 06/05/2024 7:23 AM [facility] Alkaline Phosphatase 69 42 - 121 unit/L LAB CHEMISTRY METHOD 06/05/2024 7:23 AM [facility] Total Protein 6.3 6.0 - 8.0 g/dL LAB CHEMISTRY METHOD 06/05/2024 7:23 AM [facility] Albumin 3.1(L) 3.2 - 5.0 g/dL LAB CHEMISTRY METHOD 06/05/2024 7:23 AM [facility] Total Bilirubin 0.3 0.0 - 1.4 mg/dL LAB CHEMISTRY METHOD 06/05/2024 7:23 AM [facility] Blood Venous blood specimen / Unknown 06/05/2024 6:00 AM EST 06/05/2024 6:45 AM EST us Antonio Mcmillan MD LAB BLOOD ORDERABLES Final Resul t [facility] [address] [place] [address], documented in this encounter Visit Diagnoses Diagnosis Diffuse traumatic brain injury with loss of consciousness of unspecified duration, sequela (CMS/HCC) documented in this encounter Care Teams Appointment Scheduler Relationship Specialty Start Date End Date Antonio Mcmillan MD [address] [place] [address] Dr [address] [place], [place] PCP - General Internal Medicine 08/10/24 documented as of this encounter
--- OUTSIDE RECORDS SUMMARY | 2024-10-02 14:07 | XMS_ITS | Clinical Summary ---
Author Organization [address] [facility] Address [address] [place] [address] Phone Care Team Providers Care Instructional Systems Designer Name Role Phone Antonio Mcmillan MD Primary Care Provider [phone] Encounters Date Type Department Care Team Description 09/11/2024 Lab Requisition [facility] [address] [place] [address] Antonio Mcmillan MD Diffuse traumatic brain injury with loss of consciousness of unspecified duration, sequela (CMS/HCC) 08/10/2024 Lab Requisition [facility] [address] [place] [address] Antonio Mcmillan MD Other fci (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 from Last 3 Months [...] AMMONIA Routine 08/10/2024 6:20 AM EST Other terminal worker (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 from Last 3 Months Results * (ABNORMAL) Lipid panel with reflex to direct LDL (09/11/2024 6:50 AM EDT) Cholesterol 138 0 - 200 mg/dL LAB CHEMISTRY METHOD 09/11/2024 8:25 AM EDT [facility] Triglycerides 200(H) 0 - 150 mg/dL LAB CHEMISTRY METHOD 09/11/2024 8:25 AM T [facility] HDL 30(L) >=40 mg/dL LAB CHEMISTRY METHOD 09/11/2024 8:25 AM EDT [facility] LDL Calculated 68 0 - 100 mg/dL LAB CHEMISTRY METHOD 09/11/2024 8:25 AM EDT [facility] VLDL Cholesterol Carter 40 mg/dL LAB CHEMISTRY METHOD 09/11/2024 8:25 AM EDT [facility] Non HDL Chol. (LDL+VLDL) 108 <145 mg/dL LAB CHEMISTRY METHOD 09/11/2024 8:25 AM EDT [facility] Chol/HDL Ratio 4.6(H) 0.0 - 4.4 LAB CHEMISTRY METHOD 09/11/2024 8:25 AM T [facility] Blood Venous blood specimen / Unknown 09/11/2024 6:50 AM EDT 09/11/2024 7:44 AM EDT us Antonio Mcmillan MD LAB BLOOD ORDERABLES Final Resul t [facility] [address] [place] [address], * (ABNORMAL) CBC auto differential (09/11/2024 6:50 AM EDT) [facility] WBC 6.5 4.8 - 10.8 K/mcL LAB HEMETOLOGY METHOD 09/11/2024 8:44 AM EDT [facility] RBC 5.40 4.50 - 5.50 M/mcL LAB HEMETOLOGY METHOD 09/11/2024 8:44 AM EDT [facility] Hemoglobin 15.9 13.5 - 17.5 g/dL LAB HEMETOLOGY METHOD 09/11/2024 8:44 AM EDT [facility] Hematocrit 50.2 42.0 - 54.0 % LAB HEMETOLOGY [facility]24 [facility] MCV 92.3 79.0 - 98.0 FL LAB HEMETOLOGY METHOD 09/11/2024 8[facility] MCH 29.2 27.0 - 32.0 pcg LAB HEMETOLOGY METHOD 09/11/2024 8:44 AM [facility] MCHC 31.7(L) 32.0 - 37.0 g/dL LAB HEMETOLOGY METHOD 09/11/2024 8:44 AM EDT [facility] RDW 14.4 11.0 - 15.0 % LAB HEMETOLOGY METHOD 09/11/2024 8:44 AM EDT [facility] Platelets 09/11/2024 8:44 AM EDT [facility] Comment:Not measured. Platel ets appear adequate but clumped MPV 10.8 7.0 - 11.0 FL LAB HEMETOLOGY METHOD 09/11/2024 8:44 AM EDT [facility] NRBC 0.0 <1.0 % LAB HEMETOLOGY METHOD 09/11/2024 8:44 AM [facility] NRBC Absolute 0.00 <0.10 K/mcL LAB HEMETOLOGY METHOD 09/11/2024 8:44 AM [facility] Neutrophils Relative 38.9 % LAB HEMETOLOGY METHOD 09/11/2024 8:44 AM [facility] Lymphocytes Relative 51.5 % LAB HEMETOLOGY METHOD 09/11/2024 8:44 AM [facility] Monocytes Relative 8.2 % LAB HEMETOLOGY METHOD 09/11/2024 8:44 AM [facility] Eosinophils Relative 0.6 % LAB HEMETOLOGY METHOD 09/11/2024 8:44 AM [facility] Basophils Relative 0.5 % LAB HEMETOLOGY METHOD 09/11/2024 8:44 AM [facility] Immature Granulocytes Relative 0.3 % LAB HEMETOLOGY METHOD 09/11/2024 8:44 AM [facility] Neutrophils Absolute 2.52 1.50 - 7.00 K/mcL LAB HEMETOLOGY METHOD 09/11/2024 8:44 AM [facility] Lymphocytes Absolute 3.33 1.00 - 5.00 K/mcL LAB HEMETOLOGY METHOD 09/11/2024 8:44 AM [facility] Monocytes Absolute 0.53 0.20 - 1.00 K/mcL LAB HEMETOLOGY METHOD 09/11/2024 8:44 AM [facility] Eosinophils Absolute 0.04 0.00 - 0.50 K/mcL LAB HEMETOLOGY METHOD 09/11/2024 8:44 AM [facility] Basophils Absolute 0.03 0.00 - 0.20 K/mcL LAB HEMETOLOGY METHOD 09/11/2024 8:44 AM [facility] Immature Granulocytes Absolute 0.02 0.00 - 0.03 K/mcL LAB HEMETOLOGY METHOD 09/11/2024 8:44 AM EDT [facility] Blood Venous blood specimen / Unknown 09/11/2024 6:50 AM EDT 09/11/2024 7:44 AM EDT us Antonio Mcmillan MD LAB BLOOD ORDERABLES Final Resul t Performing Organization Address City/[facility]/ZIP Co de Phone Number [facility] [address] [place] [address], [place] [phone] * Thyroid stimulating hormone (09/11/2024 6:50 AM EDT) TSH 2.30 0.40 - 4.00 mcIU/mL LAB CHEMISTRY METHOD 09/11/2024 8:29 AM EDT [facility] Blood Venous blood specimen / Unknown 09/11/2024 6:50 AM EDT 09/11/2024 7:44 AM EDT us Antonio Mcmillan MD LAB BLOOD ORDERABLES Final Resul t Performing Organization Address [facility] de Phone Number [facility] [address] [place] [address], [place] [phone] * Thyroxine free (09/11/2024 6:50 AM EDT) Free T4 0.84 0.70 - 1.80 ng/dL LAB CHEMISTRY METHOD 09/11/2024 8:29 AM EDT [facility] Blood Venous blood specimen / Unknown 09/11/2024 6:50 AM EDT 09/11/2024 7:44 AM EDT us Antonio Mcmillan MD LAB BLOOD ORDERABLES Final Resul t Performing Organization Address City/[facility]/ZIP Co de Phone Number [facility] [address] [place] [address], [place] [phone] * (ABNORMAL) Ammonia (09/11/2024 6:50 AM EDT) Only the most recent of2 resultswithin the time period is included. Pathologist [facility] Ammonia 53(H) 11 - 35 mcmol/L LAB CHEMISTRY METHOD 09/11/2024 8:08 AM EDT [facility] Blood Venous blood specimen / Unknown 09/11/2024 6:50 AM EDT 09/11/2024 7:44 AM EDT us Antonio Mcmillan MD LAB BLOOD ORDERABLES Final Resul t Performing Organization Address City/[facility]/ZIP Co de Phone Number [facility] [address] [place] [address], [place] [phone] * Valproic acid level, total (09/11/2024 6:50 AM EDT) Pathologist [facility] Valproic Acid, Total 67 50 - 100 mcg/mL LAB CHEMISTRY METHOD 09/11/2024 8:25 AM EDT [facility] Blood Venous blood specimen / Unknown 09/11/2024 6:50 AM EDT 09/11/2024 7:44 AM EDT us Antonio Mcmillan MD LAB BLOOD ORDERABLES Final Resul t Performing Organization Address [facility]/ZIP Co de Phone Number [facility] [address] [place] [address], [place] [phone] * (ABNORMAL) Comprehensive metabolic panel (09/11/2024 6:50 AM EDT) Pathologist [facility] Sodium 140 133 - 145 mmol/L LAB CHEMISTRY METHOD 09/11/2024 8:25 AM EDT [facility] Potassium 4.3 3.5 - 5.5 mmol/L LAB CHEMISTRY METHOD 09/11/2024 8:25 AM EDT [facility] Comment:Hemolysis present Chloride 103 96 - 110 mmol/L LAB CHEMISTRY METHOD 09/11/2024 8:25 AM [facility] CO2 32 21 - 32 mmol/L LAB CHEMISTRY METHOD 09/11/2024 8:25 AM [facility] Anion Gap 5 3 - 11 LAB CHEMISTRY METHOD 09/11/2024 8:25 AM [facility] Glucose 115(H) 70 - 100 mg/dL LAB CHEMISTRY METHOD 09/11/2024 8:25 AM [facility] BUN 9 5 - 25 mg/dL LAB CHEMISTRY METHOD 09/11/2024 8:25 AM [facility] Creatinine 0.65(L) 0.70 - 1.30 mg/dL LAB CHEMISTRY METHOD 09/11/2024 8:25 AM [facility] eGFR 124 >=60 mL/min/1. 73m2 LAB CHEMISTRY METHOD 09/11/2024 8:25 AM [facility] Comment:Calculation based on the??Chronic Kidney Disease Epidemiology Collaboration (CKD-EPI) equation refit??without adjustment for race. BUN/Creatinine Ratio 13.8 LAB CHEMISTRY METHOD 09/11/2024 8:25 AM [facility] Calcium 8.9 8.5 - 10.5 mg/dL LAB CHEMISTRY METHOD 09/11/2024 8:25 AM [facility] AST (SGOT) 54(H) 10 - 42 unit/L LAB CHEMISTRY METHOD 09/11/2024 8:25 AM [facility] Comment:Hemolysis present ALT (SGPT) 65(H) 10 - 60 unit/L LAB CHEMISTRY METHOD 09/11/2024 8:25 AM [facility] Alkaline Phosphatase 66 42 - 121 unit/L LAB CHEMISTRY METHOD 09/11/2024 8:25 AM [facility] Total Protein 6.6 6.0 - 8.0 g/dL LAB CHEMISTRY METHOD 09/11/2024 8:25 AM EDT [facility] Albumin 3.3 3.2 - 5.0 g/dL LAB CHEMISTRY METHOD 09/11/2024 8:25 AM EDT [facility] Total Bilirubin 0.5 0.0 - 1.4 mg/dL LAB CHEMISTRY METHOD 09/11/2024 8:25 AM EDT [facility] ([facility] Blood Venous blood specimen / Unknown 09/11/2024 6:50 AM EDT 09/11/2024 7:44 AM EDT us Antonio Mcmillan MD LAB BLOOD ORDERABLES Final Resul t [facility] ([facility]) [facility] [address] [place] [address], [place] [phone] from Last 3 Months Care Teams Instructional Systems Designer Relationship Specialty Start Date End Date Antonio Mcmillan MD [address] [place] [address] Dr [address] [place], [place] PCP - General Internal Medicine 08/10/24
--- OUTSIDE RECORDS SUMMARY | 2024-10-02 14:09 | XMS_ITS | Data Portability ---
Author Organization [place] - [employer] Address [address] [facility] [address] [place] [address] Care Team Providers Care Stationary Engineer Supervisor Name Role Phone VITALIY PIPER Primary Care [...] - Room 3 please 023 09/04/19 23 [facility] ([facility]aging [facility]), [address] [facility], [address], [place], [address], 12:54:13 Medication Orders None recorded . Patient [...] Exam Date: 2022 Orderi ng Provid er: [id number] [facility] (Imaging Center) [address] [facility] [address], [place], [address], 09/03/2022 16:20:38 Result Notes None recorded. Problems Name Problem SNOMED Code Status Onset Date Resolution Date Notes Provider Name and Address Organization Details Recorded Time Brachial plexopathy of right upper limb 0482149530129 9103 Active 2022 Mani Morton MD 1 [facility],[address], [place], [address] , [facility], [facility]. 14:19:54 Problem Notes None recorded. Procedures Surgical History None recorded. Imaging Results Imaging Date Name Status LastModified by Organiz ation Details LastModified Time 09/03/2022 XR, shoulder, 2 or more view completed [facility] (Imaging Center) [address] [facility] [address], [place], [address], 09/03/2022 16:20:38 Procedure Notes None recorded. Medical Equipment None Reported. Allergies Allergen ID Allergen Name Allergen Category Reaction Reaction Severity Criticality Documentation Date Start Date Code Code System Note Provider Name and Address Organization Details Recorded Time 644630 Zoloft medicatio n dizziness Not available Not available 09/03/2022 42924 RxNorm Not Available Not Available Not Available [...] Updated DateTime 09/03/2022 165.1 cm 29.1 kg/m2 03661.66 g Yvette [facility], [facility] 09/03/2022 11:49:57 Social History Question Answer Notes LastModified by Organizat ion Details LastModified Time Tobacco Smoking Status Never Smoker [facility]vette law [facility] 09/03/2022 11:50:53 How Much Alcohol Do You Drink In A Week? None [email or web address] Information not available 09/03/2022 What Was The Date Of Your Most Recent Tobacco Screening? 09/03/2022 [email or web address] Information not available 09/03/2022 Sex: Unknown Functional Status None recorded. Mental Status None recorded. Family History Nothing Reported. Medical History Condition Response Anxiety/Depression Y High Blood Pressure Y Past Encounters Encounter ID Performer Location Encounter Start Date Encounter Closed Date Diagnosis/Indication Diagnosis SNOMED-CT Code Diagnosis ICD10 Code Diagnosis Note [id number] MD Cynthia Ballard [facility] 1 Cynthia Srinivasan [facility] [place] [phone] 09/03/2022 11:24:47 09/03/2022 12:21:14 Pain of right shoulder joint 3886703947 8970815 M25.511 Brachial p lexopathy of right upper limb [id number] 4625899 G54.0 he has a severe right upper [...] Name 09/03/2022 1 [place] Ranjana Soto [id number] Ranjana Soto Notes Date Note Type Note [...] Mani Morton MD [address], [place], [address], [facility] 09/03/2022 14:20:10
--- OUTSIDE RECORDS SUMMARY | 2024-10-02 14:09 | XMS_ITS | Encounter Summary ---
[facility] Organization [facility] Address [address] [place] [address] Care Team Providers Care Deputy Court Clerk Name Role Phone Antonio Mcmillan MD Primary Care Provider [phone] Encounter Details Date Type Department Care Team (Late st Contact Info) Description 08/10/2024 Lab Requisition [facility] [address] [place] [address] Antonio Mcmillan MD [address] [place] [address] [address] [place], [place] Other extermination inspector (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 Social History Tobacco Use [...] AMMONIA Routine 08/10/2024 6:20 AM EST Other extermination inspector (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 documented in this encounter Results * (ABNORMAL) Ammonia (08/10/2024 6:20 AM EST) Ammonia 50(H) 11 - 35 mcmol/L LAB CHEMISTRY METHOD 08/10/2024 7:18 AM EST [facility] Blood Venous blood specimen / Unknown 08/10/2024 6:20 AM EST 08/10/2024 6:51 AM EST us Antonio Mcmillan MD LAB BLOOD ORDERABLES Final Resul t [facility] [address] [place] [address], documented in this encounter Visit Diagnoses Diagnosis Other 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 documented in this encounter Care Teams Deputy Court Clerk Relationship Specialty Start Date End Date Antonio Mcmillan MD [address] [place] [address] Dr [address] CHINO Manzanares PCP - General Internal Medicine 08/10/24 documented as of this encounter
== END 2024-10-02 12:02 | disposition home or self-care (01) ==
LOC: HO.HGI 11:41
PROVIDERS: PCP Hospitalist; Visit Provider Nurse Practitioner
DX: R74.01 Elevation of levels of liver transaminase levels (principal); R79.89 Other specified abnormal findings of blood chemistry
CPT/HCPCS: 99213

== ENCOUNTER → 2024-10-02 11:40 | Outpatient (BNVA) | payer MEDICAID, SELFPAY | PROVIDERS: PCP Hospitalist; Visit Provider Nurse Practitioner | DX: R74.01 Elevation of levels of liver transaminase levels (principal); R79.89 Other specified abnormal findings of blood chemistry | CPT/HCPCS: 99212 ==

== ENCOUNTER 2024-10-24 06:58 | Inpatient (IN) | payer MEDICAID, SELFPAY ==
[2024-10-24] VITALS (7 sets, daily range): BP systolic 115–157; BP diastolic 73–97; PULSE 100–128; RESP 18–24; TEMP 36.4–39.3; O2SAT 94–98; BMI 33.0; BMI 32.7
--- NOTE | ~2024-10-24 | XR_ITS ---
EXAMINATION: XR CHEST CLINICAL INFORMATION: cough COMPARISON: September 20, 2024. TECHNIQUE: Frontal view of the chest was obtained. FINDINGS: Opacity from the mid to lower right hemithorax. Bilateral multifocal patchy opacities extending from the pulmonary hilum. No pneumothorax. Cardiomediastinal silhouette size is normal with indistinct margins in the inferior right lower aspect. There is a calcific abnormality in the inferior right clavicle and above the coracoid process, similar since prior exam. XR/XR chest 1V IMPRESSION: Right-sided pleural effusion, moderate to large volume with associated airspace disease and mild interstitial lung edema versus multifocal pneumonia. Electronically signed by: Lorenzo Zabala MD 10/24/2024 07:58 AM EDT
--- NOTE | ~2024-10-24 | CT_ITS ---
CLINICAL HISTORY: pleural effusion CT chest without contrast Comparison: CR/SR - XR CHEST 1V - 10/24/24 07:[address]/SR - CT CHEST WO IV CON - 09/19/23 14:58 EDT Findings: The heart size is normal. The visualized thyroid and mediastinum are unremarkable. No pleural effusion. Elevation of the right hemidiaphragm. Large opacity of the right lower lobe and middle lobe. Curvilinear opacity of the left lower lobe. Patchy opacities of the bilateral upper lobes. Hepatic steatosis. No acute fractures. IMPRESSION: No pleural effusion. Similar large opacity of the right lower lobe and middle lobe. There are additional patchy opacities of the bilateral upper lobes. Pneumonia cannot be excluded. Hepatic steatosis. This document has been electronically signed by: Santi Moscoso MD on 10/24/2024 17:48:15
--- NOTE | ~2024-10-24 | XR_ITS ---
CLINICAL HISTORY: reeval pleural effusion 1 view chest x-ray Comparison: CT/SR - CT CHEST WO IV CON - 10/24/24 17:08 EDT Findings: Similar-appearing right lower lobe airspace consolidation. Mild interstitial prominence, also similar to prior. Cardiac and mediastinal contours are stable. No acute fracture. IMPRESSION: Similar-appearing right lower lobe consolidation and elevation of the right hemidiaphragm. Diffuse interstitial prominence, also stable. This document has been electronically signed by: Andi Gonzalez MD on 10/27/2024 12:49:36
--- NOTE | ~2024-10-24 | US_ITS ---
EXAMINATION: US TRIPLEX UPPER EXTREMITY, RIGHT CLINICAL INFORMATION: Pain, right upper extremity. Patient on anticoagulation therapy. COMPARISON: None available. TECHNIQUE: Color-flow triplex imaging with spectral analysis and compression Doppler was performed on the right upper extremity. FINDINGS: The right internal jugular, subclavian, and axillary veins are patent demonstrated normal spectral waveforms and augmentation during Valsalva maneuvers. The imaged segment of the right brachiocephalic vein is patent. Spectral doppler waveforms are normal. The brachial, basilic, cephalic, radial, and ulnar veins are patent and compressible. 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 US/US venous duplex UE RT IMPRESSION: No acute deep venous thrombosis involving the right upper extremity. Negative for DVT.. Electronically signed by: Lorenzo Zabala MD 10/24/2024 11:22 AM EDT
--- NOTE | 2024-10-24 07:21 | ECG_ITS ---
Test Reason : cp Blood Pressure : */* mmHG Vent. Rate : 129 BPM Atrial Rate : 129 BPM P-R Int : 146 ms QRS Dur : 72 ms QT Int : 274 ms P-R-T Axes : 53 90 22 degrees QTcB Int : 401 ms Sinus tachycardia Rightward axis Anterior infarct (cited on or before 30-Dec-2023) Abnormal ECG When compared with ECG of 30-Dec-2023 14:44, Nonspecific T wave abnormality no longer evident in Lateral leads Referred By: Generic ED Physician Electronically Signed By: GARRET COLE
[2024-10-24] MEDS: Acetaminophen 325 MG TABLET 975 MG PO (07:24)
--- NOTE | 2024-10-24 07:26 | PC.NURSE ---
patient presenting from [facility] in [place] for right arm pain. upon arrival, patient noted to be febrile and wearing supplemental oxygen. patient states he does use supplemental oxygen as needed
[2024-10-24 08:21] LABS: Appearance Urine Clear; Color Urine Yellow; Glucose Urine UA Negative (Negative); Leukocyte Esterase Urine Negative (Negative); Nitrite Urine Negative (Negative); Specific Gravity - Urine 1.015 (1.005-1.025); UMIC TRIGGER UACC YES; Urine Blood Trace (Negative); Urine Ketones 15 mg/dL (Negative); Urine Protein 100 (2+) mg/dL (Neg-Trace)
[2024-10-24 08:26] LABS: Bacteria Urine None Seen (None Seen); Hyaline Casts Urine 0-2 /LPF (0-2); Squamous Epithelial Cell Urine 0-2 /HPF (0-2); WBC Urine 0-5 /HPF (0-5)
[2024-10-24 08:40] LABS: Influenza A PCR NEGATIVE (Negative); Influenza B PCR NEGATIVE (Negative); Resp Syncy Virus RNA Qual PCR NEGATIVE (Negative); SARS COV2 PCR INHOUSE NEGATIVE (Negative)
[2024-10-24 08:44] LABS: MANUAL DIFF FLAG NO
[2024-10-24 08:48] LABS: Basophils Percent Auto 0.3 % (0-2); Eosinophils Percent Auto 0.1 % (0-4); Hematocrit 46.3 % (42.0-52.0); Hemoglobin 15.3 g/dl (14.0-18.0); Imm Gran Abs Auto 0.04 X10*3/uL (0.00-0.03); Imm Gran Pct Auto 0.4 % (0.0-0.4); Lymphocytes Absolute Auto 1.6 X10*3/uL (1.2-4.9); Lymphocytes Percent Auto 14.7 % (20-40); Mean Corpuscular Hemoglobin 29.6 pg (27.0-33.0); Mean Corpuscular Volume 89.6 fL (80.0-98.0); Mean Platelet Volume 9.2 fL (9.4-12.4); Monocytes Absolute Auto 1.3 X10*3/uL (0.1-1.2); Neutrophils Percent Auto 72.5 % (45-73); Platelet Count 203 X10*3/uL (160-400); Red Blood Count 5.17 X10*6/uL (4.60-5.80); Red Cell Distribution Width 14.2 % (11.0-16.0)
[2024-10-24 09:04] LABS: Lactic Acid 1.3 mmol/L (0.5-2.0)
[2024-10-24 09:05] LABS: Alanine Aminotransferase 57 U/L (0-40); Alkaline Phosphatase 87 U/L (39-117); Anion Gap 14 (12-20); Aspartate Amino Transferase 46 U/L (5-37); Bilirubin Total 0.7 mg/dL (0.0-1.0); Blood Urea Nitrogen 8 mg/dL (9-16); Calcium 9.4 mg/dL (8.4-10.2); Carbon Dioxide 30 mmol/L (22-29); Chloride 98 mmol/L (96-108); Creatinine Clr Calc Pharmacy 148.6; Estimated Glomerular Filt Rate > 60; Glucose Random 154 mg/dL (60-115); Potassium 4.1 mmol/L (3.3-5.1); Sodium 138 mmol/L (135-145); Total Protein 7.7 g/dL (6.5-8.0)
--- NOTE | 2024-10-24 09:05 | ED.GENADULT ---
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 Patient reports that he had physical therapy yesterday with use of a TENS unit and had right arm pain afterwards. He states that he was medicated around 2:00 a.m. with Tylenol and that his pain became severe, 04/12 around 3 or 4:00 a.m.. He states pain has since fully resolved and denies current right arm pain. Patient noted to be febrile and tachycardic on arrival. Staff at [facility] reported to EMS that patient has had cough for past few weeks. MD complaint: right arm pain, febrile Related Data Home Medications ?Medication ?Instructions ?Recorded ?Confirmed acetaminophen 325 mg tablet 650 mg PO Q6H PRN Fever Or Pain 04/15/23 10/01/24 albuterol sulfate 90 mcg/actuation 2 puff inhalation Q6H PRN Wheezing 04/15/23 10/01/24 aerosol inhaler citalopram 10 mg tablet 10 mg PO DAILY 04/15/23 10/01/24 divalproex 500 mg tablet,delayed 500 mg PO BID 04/15/23 10/01/24 release (Depakote) multivitamin 1 tab PO DAILY 04/15/23 10/01/24 ondansetron HCl 4 mg tablet 4 mg PO Q8H PRN Nausea And Vomiting 04/15/23 10/01/24 sennosides 8.6 mg tablet (senna) 8.6 mg PO DAILY PRN Constipation 04/15/23 10/01/24 guaifenesin 100 mg/5 mL oral liquid 300 mg PO Q6H PRN Cough 05/03/23 10/01/24 melatonin 5 mg tablet 5 mg PO BEDTIME 05/03/23 10/01/24 polyvinyl alcohol 1.4 % eye drops 1 drp ophthalmic (eye) Q6H PRN Dry 05/03/23 10/01/24 Eye(S) diphenhydramine HCl 25 mg capsule 25 mg PO BEDTIME PRN 02/14/24 10/01/24 (Allergy (diphenhydramine)) divalproex 250 mg tablet,delayed 250 mg PO BID 02/14/24 10/01/24 release hydroxyzine HCl 50 mg tablet 50 mg PO QID PRN 02/14/24 10/01/24 olanzapine 10 mg tablet 5 mg PO BEDTIME 04/02/24 10/01/24 cyclobenzaprine 10 mg tablet 10 mg PO BEDTIME 10/01/24 10/01/24 Previous Rx's ?Medication ?Instructions ?Recorded levetiracetam 1,000 mg tablet 1,000 mg PO BID #60 tabs 04/20/23 mometasone-formoterol HFA 100 2 puff inhalation BID #1 ea 08/02/23 mcg-5 mcg/actuation aerosol inhaler (Dulera) Allergies Allergy/AdvReac Type Severity Reaction Status Date / Time amoxicillin Allergy Anaphylaxis Verified 10/24/24 07:16 sertraline [From Zoloft] Allergy Anaphylaxis Verified 10/24/24 07:16 Review of Systems Review of Systems: As per HPI Yes all other systems are reviewed and are negative PMFSH Past Medical History Medical History Hypoxia Asthma Chronic anticoagulation History of acute respiratory failure Aspiration pneumonia Acute and chronic respiratory failure with hypoxia Rhabdomyolysis Hypernatremia Pneumonia Epileptic seizure Acute hypoxic respiratory failure Pneumonia Psychogenic nonepileptic seizure Seizure disorder TBI (traumatic brain injury) Social History Social History Household Members: Other Housing: [facility] Do you presently have visiting nurse or other home services: No Alcohol intake: never Patient Tobacco Use Status: Never used Tobacco e-Cigarette/Vaping Use: Never Used Advance Directives: Yes Advance Directives on File: Yes Advance Directives Date on File: 05/07/23 Do you have a plan to hurt others: No Plan service: No Physical Exam ED Vital Signs: Vital Signs - 24 hr 10/24/24 07:11 10/24/24 08:43 10/24/24 10:35 Temperature 102.7 F H 99.1 F 99.0 F Pulse Rate 128 H 121 H 117 H Respiratory Rate 20 24 H 18 Blood Pressure 157/87 H 143/73 H 115/88 Pulse Oximetry 94 94 94 Oxygen Delivery Method Nasal Cannula Nasal Cannula Nasal Cannula Oxygen Flow Rate 2 2 10/24/24 11:24 Temperature 98.7 F Pulse Rate 115 H Respiratory Rate 18 Blood Pressure 147/79 H Pulse Oximetry 95 Oxygen Delivery Method Nasal Cannula Oxygen Flow Rate 2 BMI result Body Mass Index 33.0 Vital signs have been reviewed and appear to be correct. Blood pressure elevated. Heart rate Tachycardic. Respiratory rate normal. Temperature febrile. Oxygen saturation normal. Const General: cooperative, no acute distress, alert and awake Orientation/consciousness: patient oriented x3 Limitations: physical limitations [facility] Head: Yes normocephalic and Yes atraumatic Ears: hearing grossly normal bilaterally and external ears normal General nose exam: Normal external nose present Face and sinus: Yes face symmetric Mouth: Normal oral and palatal mucosa present Throat: Yes posterior oropharynx normal Eyes Pupils: Equal, round and reactive pupils present Neck Neck: Yes normal visual inspection, Yes trachea midline and Yes supple Chest Chest palpation & inspection: normal inspection of the chest Resp Effort & Inspection: normal respiratory effort and able to speak in complete sentences Auscultation: diminished lung sounds diffuse Cardio Rate: tachycardic Heart sounds: S1 normal heart sound present and S2 normal heart sound present Peripheral pulses: Peripheral pulses 2+ throughout GI Palpation (GI): Soft to palpation and nontender General: Yes no CVA tenderness Back/Spine/Pelvis Back: no CVA tenderness Skin General skin exam: no rashes or lesions noted Neuro General: patient oriented x3 Cranial nerves: Yes Equal, round and reactive pupils present Medications Administered Discontinued Medications Generic Name Dose Route Start Last Admin Trade Name Freq PRN Reason Stop Dose Admin Acetaminophen 975 mg 10/24/24 07:21 10/24/24 07:24 Acetaminophen 325 Mg Tablet PO 10/24/24 07:22 975 mg ONCE ONE Administration Cefepime HCl 2 gm in 50 mls @ 100 mls/hr 10/24/24 09:17 10/24/24 10:02 Maxipime IV 10/24/24 09:46 Infused ONCE ONE Infusion Lactated Ringer's 1,000 mls @ 999 mls/hr 10/24/24 11:30 10/24/24 11:23 Lr IV 10/24/24 12:30 999 mls/hr .Q1H1M [facility] Administration Medical Decision Making Medical Decision Making [facility] Narrative: Patient is a 39-year-old male with history of TBI, 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 On exam patient is awake, A+Ox3, tachycardic, febrile, physical exam findings as above. Given reported symptoms and physical exam findings, initial differential includes but is not limited to sepsis, pneumonia, UTI, DVT right arm. Labs notable for mild leukocytosis, normal lactic, negative troponin. Viral panel negative. Chest x-ray notable for right-sided pleural effusion with associated interstitial edema. Given fever, ongoing cough suspect pneumonia. IV antibiotics ordered. Ultrasound notable for no evidence of DVT. My interpretation is in agreement with the radiologist's interpretation. Case discussed with hospitalist who accepts admission to medicine. Differential Diagnosis Differential Diagnoses: The differential diagnosis associated with the presentation includes As per [facility] Admission/Observation Consideration of admission/observation: Escalation of care including admission/observation considered Consult Healthcare Provider Management of the patient was discussed with: Hospitalist Lab Data [facility] Lab Attestation statement: I reviewed the patient's lab results. As per [facility] 10/24/24 08:35 10/24/24 08:35 Labs: Lab Results 10/24/24 10/24/24 10/24/24 Range/Units 07:50 08:12 08:35 WBC 11.0 H (4.8-10.8) X10*3/uL RBC 5.17 (4.60-5.80) X10*6/uL Hgb 15.3 (14.0-18.0) g/dl Hct 46.3 (42.0-52.0) % MCV 89.6 (80.0-98.0) fL MCH 29.6 (27.0-33.0) pg MCHC 33.0 (31.0-36.0) g/dl RDW 14.2 (11.0-16.0) % Plt Count 203 (160-400) X10*3/uL MPV 9.2 L (9.4-12.4) fL Immature Gran % (Auto) 0.4 (0.0-0.4) % Neut % (Auto) 72.5 (45-73) % Lymph % (Auto) 14.7 L (20-40) % Mcintosh % (Auto) 12.0 H (2-11) % Eos % (Auto) 0.1 (0-4) % Baso % (Auto) 0.3 (0-2) % Lymph # (Auto) 1.6 (1.2-4.9) X10*3/uL Mcintosh # (Auto) 1.3 H (0.1-1.2) X10*3/uL Eos # (Auto) 0.0 (0.0-0.4) X10*3/uL Baso # (Auto) 0.0 (0.0-0.2) X10*3/uL Abs Immat Gran (auto) 0.04 H (0.00-0.03) X10*3/uL Absolute Neuts (auto) 8.0 (2.0-8.3) x10*3/uL Absolute Nucleated RBC 0.000 (0.0-0.012) X10*3/uL Nucleated RBC % (auto) 0.0 (0.0-0.2) /100WBC Hold Blue Top SEE NOTE Sodium 138 (135-145) mmol/L Potassium 4.1 (3.3-5.1) mmol/L Chloride 98 (96-108) mmol/L Carbon Dioxide 30 H (22-29) mmol/L Anion Gap 14 (12-20) BUN 8 L (9-16) mg/dL Creatinine 0.75 (0.5-1.4) mg/dL Estim Creat Clear Calc 148.6 Estimated GFR > 60 Random Glucose 154 H (60-115) mg/dL Lactic Acid 1.3 (0.5-2.0) mmol/L Calcium 9.4 (8.4-10.2) mg/dL Total Bilirubin 0.7 (0.0-1.0) mg/dL AST 46 H (5-37) U/L ALT 57 H (0-40) U/L Alkaline Phosphatase 87 (39-117) U/L Troponin I High Sens 3.4 (<3.5-35.0) ng/L B-Natriuretic Peptide < 10 (<100) pg/mL Total Protein 7.7 (6.5-8.0) g/dL Albumin 4.0 (3.5-5.0) g/dL Urine Color Yellow Urine Appearance Clear Urine pH 8.0 (5.0-9.0) Ur Specific [place] 1.015 (1.005-1.025) Urine Protein 100 (2+) H (Neg-Trace) mg/dL Urine Glucose (UA) Negative (Negative) mg/dL Urine Ketones 15 (Negative) mg/dL Urine Blood Trace H (Negative) Urine Nitrite Negative (Negative) Ur Leukocyte Esterase Negative (Negative) Urine RBC 6-10 H (0-2) /HPF Urine WBC 0-5 (0-5) /HPF Ur Squamous Epith Cells 0-2 (0-2) /HPF Urine Bacteria None Seen (None Seen) Hyaline Casts 0-2 (0-2) /LPF Influenza Type A (PCR) NEGATIVE (Negative) Influenza Type B (PCR) NEGATIVE (Negative) RSV RNA Qual (PCR) NEGATIVE (Negative) SARS-CoV-2 RNA (RT-PCR) NEGATIVE (Negative) Radiology Impression Discussion of test interpretation with radiology: I have reviewed the radiologist's reading. Radiologist Impression: XR/XR chest 1V IMPRESSION: Right-sided pleural effusion, moderate to large volume with associated airspace disease and mild interstitial lung edema versus multifocal pneumonia. External Record Review External record reviewed: Inpatient record, Office record and Outpatient record Prescription Management I considered prescription management with: Antibiotic Critical Care Time Critical Care Time Critical Care Time: Yes Total Critical Care Time: 39 Attestation: I have personally provided critical care time exclusive of time spent on separately billable procedures. Time includes review of lab data, radiology results, discussion with consultants, and monitoring for potential decompensation. Intervention performed as documented. Discharge Plan Discharge Clinical Impression: Pneumonia Patient Disposition: Admitted As Inpatient Print Language: Grenadian
[2024-10-24 09:08] LABS: B Type Natriuretic Peptide < 10 pg/mL (<100)
[2024-10-24 09:15] LABS: Troponin-I High Sensitivity 3.4 ng/L (<3.5-35.0)
[2024-10-24] MEDS: cefEPime HCl/D5W 2 GM/50 ML PIGGYBACK IV (09:32)
--- OUTSIDE RECORDS SUMMARY | 2024-10-24 09:54 | XMS_ITS | Encounter Summary ---
Author Organization [facility] Address [address] [place] [address] Care Team Providers Care Chinese Teacher Name Role Phone Antonio Mcmillan MD Primary Care Provider [phone] Encounter Details Date Type Department Care Team (Late st Contact Info) Description 08/10/2024 Lab Requisition [facility] [address] [place] [address] Antonio Mcmillan MD [address] [place] [address] [address] [place], [place] Other 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 Social History Tobacco Use [...] AMMONIA Routine 08/10/2024 6:20 AM EST Other 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 documented in this encounter Results * (ABNORMAL) Ammonia (08/10/2024 6:20 AM EST) Ammonia 50(H) 11 - 35 mcmol/L LAB CHEMISTRY METHOD 08/10/2024 7:18 AM EST [facility] Blood Venous blood specimen / Unknown 08/10/2024 6:20 AM EST 08/10/2024 6:51 AM EST us Antonio Mcmillan MD LAB BLOOD ORDERABLES Final Resul t [facility] [address] [place] [address], documented in this encounter Visit Diagnoses Diagnosis 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
--- OUTSIDE RECORDS SUMMARY | 2024-10-24 09:54 | XMS_ITS | Encounter Summary ---
Author Organization [employer] Address [address] [place] [address] Care Team Providers Care Head Of Mobile Name Role Phone Antonio Mcmillan MD Primary Care Provider [phone] Encounter Details Date Type Department Care Team (Late st Contact Info) Description 10/03/[address] [facility] - Main Lab 299 [facility] [place] [address] Antonio Mcmillan MD [address] [place] [address] [address] [place], [place] Other senior care (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 Social History Tobacco Use [...] Procedure Name Priority Date/Time Associated Diagnosis Comments HEPATITIS C ANTIBODY Routine 10/03/2024 5:20 AM EDT Other tank terminal gauger (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 SST - GOLD Routine 10/03/2024 5:20 AM EDT Other tank terminal gauger (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 SST - GOLD Routine 10/03/2024 5:20 AM EDT Other tank terminal gauger (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 SST - GOLD Routine 10/03/2024 5:20 AM EDT Other senior care (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 HEPATITIS A ANTIBODY TOTAL WITH REFLEX IGM Routine 10/03/2024 5:20 AM EDT Other senior care (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 LIVER FIBROSIS, FIBROTEST-ACTITEST PANEL Routine 10/03/2024 5:20 AM EDT Other tank terminal gauger (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 HEPATITIS B SCREENING PANEL Routine 10/03/2024 5:20 AM EDT Other tank terminal gauger (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 RED - PLAIN Routine 10/03/2024 5:20 AM EDT Other senior care (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 HEMOCHROMATOSIS MUTATION Routine 025 5:20 AM EDT Other tank terminal gauger (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 SMOOTH MUSCLE ANTIBODY IGG Routine 10/03/2024 5:20 AM EDT Other tank terminal gauger (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 HEPATITIS A ANTIBODY IGM Routine 025 5:20 AM EDT Other tank terminal gauger (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 ALPHA FETOPROTEIN TUMOR MARKER Routine 10/03/2024 5:20 AM EDT Other tank terminal gauger (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 ANTIMITOCHONDRIAL ANTIBODY Routine 10/03/2024 5:20 AM EDT Other senior care (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 FERRITIN Routine 10/03/2024 5:20 AM EDT Other tank terminal gauger (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 documented in this encounter Results * Hepatitis A antibody IgM (10/03/2024 5:20 AM EDT) Hepatitis A Antibody IgM Negative Negative LAB CHEMISTRY METHOD 10/03/2024 11:18 AM EDT [facility] Blood Venous blood specimen / Unknown 10/03/2024 5:20 AM EDT 10/03/2024 6:22 AM EDT Narrative [facility] - 10/03/2024 11:18 AM EDT Over the counter supplements containing high doses of biotin may interfere with this assay. ??If interference is suspected, patients shoud be retested after refraining from biotin supplements for 72 hours. us Antonio Mcmillan MD LAB BLOOD ORDERABLES Final Resul t Performing Organization Address [facility] Co de Phone Number [facility] [address] [place] [address], [place] [phone] * SST tube (10/03/2024 5:20 AM EDT) Extra Tube Hold for add-ons. 10/03/2024 8:01 AM EDT [facility] Comment:Auto resulted. Blood Venous blood specimen / Unknown 10/03/2024 5:20 AM EDT 10/03/2024 6:22 AM EDT us Antonio Mcmillan MD LAB BLOOD ORDERABLES Final Resul t Performing Organization Address [facility] de Phone Number [facility] [address] [place] [address], [place] [phone] * SST tube (10/03/2024 5:20 AM EDT) Extra Tube Hold for add-ons. 10/03/2024 8:01 AM EDT [facility] Comment:Auto resulted. Blood Venous blood specimen / Unknown 10/03/2024 5:20 AM EDT 10/03/2024 6:22 AM EDT us Antonio Mcmillan MD LAB BLOOD ORDERABLES Final Resul t Performing Organization Address [facility] Co de Phone Number [facility] [address] [place] [address], [place] [phone] * SST tube (10/03/2024 5:20 AM EDT) Extra Tube Hold for add-ons. 10/03/2024 8:01 AM EDT [facility] Comment:Auto resulted. Blood Venous blood specimen / Unknown 10/03/2024 5:20 AM EDT 10/03/2024 6:22 AM EDT us Antonio Mcmillan MD LAB BLOOD ORDERABLES Final Resul t Performing Organization Address [facility] de Phone Number [facility] [address] [place] [address], [place] [phone] * Red tube (10/03/2024 5:20 AM EDT) [facility] Extra Tube Hold for add-ons. 10/03/2024 8:01 AM EDT [facility] Comment:Auto resulted. Blood Venous blood specimen / Unknown 10/03/2024 5:20 AM EDT 10/03/2024 6:22 AM EDT us Antonio Mcmillan MD LAB BLOOD ORDERABLES Final Resul t Performing Organization Address [facility] de Phone Number [facility] [address] [place] [address], [place] [phone] * Hepatitis C antibody (10/03/2024 5:20 AM EDT) Pathologist [facility] Hepatitis C Antibody Negative Negative LAB CHEMISTRY METHOD 10/03/2024 9:48 AM EDT [facility] Blood Venous blood specimen / Unknown 10/03/2024 5:20 AM EDT 10/03/2024 6:22 AM EDT us Antonio Mcmillan MD LAB BLOOD ORDERABLES Final Resul t Performing Organization Address [facility] de Phone Number [facility] [address] [place] [address], [place] [phone] * (ABNORMAL) Hepatitis A antibody total with reflex IgM (10/03/2024 5:20 AM EDT) Pathologist [facility] Hep A Total Ab Positive( A) Negative LAB CHEMISTRY METHOD 10/03/2024 9:49 AM EDT [facility] Blood Venous blood specimen / Unknown 10/03/2024 5:20 AM EDT 10/03/2024 6:22 AM EDT Narrative [facility] - 10/03/2024 9:49 AM EDT Over the counter supplements containing high doses of biotin may interfere with this assay. ??If interference is suspected, patients shoud be retested after refraining from biotin supplements for 72 hours. us Antonio Mcmillan MD LAB BLOOD ORDERABLES Final Resul t Performing Organization Address [facility] de Phone Number [facility] [address] [place] [address], [place] [phone] * Hepatitis B screening panel (10/03/2024 5:20 AM EDT) [facility] Hepatitis B Surface Ag Negative Negative LAB CHEMISTRY METHOD 10/03/2024 9:49 AM EDT [facility] Hep B Core Total Ab Negative Negative LAB CHEMISTRY METHOD 10/03/2024 9:49 AM EDT [facility] Hepatitis B Surface Ab Negative Negative LAB CHEMISTRY METHOD 10/03/2024 9:49 AM EDT [facility] Blood Venous blood specimen / Unknown 10/03/2024 5:20 AM EDT 10/03/2024 6:22 AM EDT us Antonio Mcmillan MD LAB BLOOD ORDERABLES Final Resul t Performing Organization Address [facility] de Phone Number [facility] [address] [place] [address], [place] [phone] * Hemochromatosis mutation (10/03/2024 5:20 AM EDT) [facility] Hereditary Hemochromatosis See Below 10/16/2024 4:36 PM EDT [facility] Comment: RESULT: NEGATIVE Interpretation: DNA testing indicates that this individual is negative for the C282Y and H63D pathogenic variants in the HFE gene. This negative result significantly reduces the likelihood of hereditary hemochromatosis (HH) in this individual. However, it does not rule out the presence of other pathogenic variants within the HFE gene or a diagnosis of HH. The risk of this individual to carry an HFE pathogenic variant other than those tested in this assay depends greatly on family and clinical history as well as ethnicity. This assay does not test for other primary or secondary iron overload disorders. Laboratory testing supervised and results monitored by Tony Hamlin, Ph.D., FACMG, FOR[facility]LY [facility], [facility]. DETAILED ASSAY INFORMATION: Hereditary hemochromatosis (HH) is an autosomal recessive disorder of iron metabolism that can result in iron overload and potential organ failure. It is one of the most common genetic disorders in individuals of - ancestry, with an estimated carrier frequency of 10%. HH is caused by pathogenic variants in the HFE gene. Most individuals with HH (60-90%) are homozygous for the C282Y pathogenic variant. A smaller percentage of affected individuals are either compound heterozygous for the C282Y and H63D pathogenic variants (3%-8%), or homozygous for the H63D pathogenic variant (approximately 1%). METHODOLOGY: This assay detects two pathogenic variants in the HFE gene, C282Y (NM 199683.2: c.845G>A, p.[id number]) and H63D (NM 634405.2: c.187C>G, p.[id number]), that are commonly associated with HH. These variants are detected by multiplex-polymerase chain reaction (PCR) amplification, followed by restriction enzyme digestion and capillary electrophoresis. LIMITATIONS: This assay does not detect other pathogenic variants in the HFE gene that may be associated with HH. Although rare, false positive or false negative results may occur. All results should be interpreted in the context of clinical findings, relevant history, and other laboratory data. Health care providers, please contact your local [employer] genetic counselor or call [phone] ( ) for assistance with the interpretation of these results. This test was developed and its analytical performance characteristics have been determined by [facility]. It has not been cleared or approved by FDA. This assay has been validated pursuant to the CLIA regulations and is used for clinical purposes. For more information, please refer to http://education.[employer].Nifty After Fifty/faq/hemochromatosis. (This link is being provided for informational/educational purposes only.) A portion of the testing was performed at [facility]. Reviewed and signed by Laboratory testing supervised and results monitored by Tony Hamlin, Ph.D., FACMG, HCLD, CGMB, Signed on 10/16/2024 at 10:39 Test Performed at: [facility] [address], [place] ??[id number] ? I Shea LYNNE, PhD, JONAS Blood Venous blood specimen / Unknown 10/03/2024 5:20 AM EDT 10/03/2024 6:22 AM EDT us Antonio Mcmillan MD LAB MOLECULAR DIAGNOSTICS ORDERA BLES Final Result [facility] [address] [place] [address] * (ABNORMAL) Liver fibrosis, fibrotest-actitest panel (10/03/2024 5:20 AM EDT) Fibrosis Score 0.19 10/11/2024 7:39 PM EDT [facility] Fibrosis Stage F0 10/11/2024 7:39 PM EDT [facility] Fibrosis Interpretation SEE NOTE 10/11/2024 7:39 PM EDT [facility] Comment: no fibrosis Fibro Test Score (f) ??Metavir Score ??f>=0 and f<=0.21 : F0 (no fibrosis) f>0.21 and f<=0.27 : F0-F1 (no fibrosis) f>0.27 and f<=0.31 : F1 (minimal fibrosis) f>0.31 and f<=0.48 : F1-F2 (minimal fibrosis) f>0.48 and f<=0.58 : F2 (moderate fibrosis) f>0.58 and f<=0.72 : F3 (advanced fibrosis) f>0.72 and f<=0.74 : F3-F4 (advanced fibrosis) f>0.74 and f<=1.00 : F4 (severe fibrosis) Necroinflammat Activity Score 0.37 10/11/2024 7:39 PM EDT [facility] Necroinflammat Activity Grade A1-A2 10/11/2024 7:39 PM EDT [facility] Necroinflammat Interpretation SEE NOTE 10/11/2024 7:39 PM EDT [facility] Comment: minimal activity ActiTest Score (a) ?Metavir Score ??a>=0 and a<=0.17 : A0 (no activity) a>0.17 and a<=0.29 : A0-A1 (no activity) a>0.29 and a<=0.36 : A1 (minimal activity) a>0.36 and a<=0.52 : A1-A2 (minimal activity) a>0.52 and a<=0.60 : A2 (significant activity) a>0.60 and a<=0.62 : A2-A3 (significant activity) a>0.62 and a<=1.00 : A3 (severe activity) Bilirubin Total 0.3 0.2 - 1.2 mg/dL 10/11/2024 7:39 PM EDT [facility] Gamma Glutamyl Transferase (GGT) 107(H) 3 - 90 U/L 10/11/2024 7:39 PM EDT [facility] Alanine Aminotransferase (ALT) 69(H) 9 - 46 U/L 10/11/2024 7:39 PM EDT [facility] Sodhk-1-Vpcgymtbkwvn n 162 106 - 279 mg/dL 10/11/2024 7:39 PM EDT [facility] Haptoglobin 135 43 - 212 mg/dL 10/11/2024 7:39 PM EDT [facility] Apolipoprotein A1 110 94 - 176 mg/dL 10/11/2024 7:39 PM EDT [facility] Reference ID [id number] 10/11/2024 7:39 PM EDT [facility] Footnote SEE NOTE 10/11/2024 7:39 PM EDT [facility] Comment: The reliability of results is dependent on compliance with the preanalytical and analytical conditions recommended by [employer]. The tests have to be deferred for: acute hemolysis, acute hepatitis, acute inflammation, extra hepatic cholestasis. The advice of a specialist should be sought for interpretation in chronic hemolysis and Gilbert's syndrome. The test interpretation is not validated in liver transplant patients. Isolated extreme values of one of the components should lead to caution in interpreting the results. In case of discordance between a biopsy result and a test, it is recommended to seek the advice of a specialist. The causes of these discordances could be due to a flaw of the test or to a flaw in the biopsy: i.e. a liver biopsy has a 33% variability rate for one fibrosis stage. FibroTest is interpretable for chronic hepatitis B and C, alcoholic and non alcoholic steatosis. ActiTest is interpretable for chronic hepatitis B and C. The performance characteristics have been determined by [facility] It has not been cleared or approved by the U.S. Food and Drug Administration. Performance characteristics refer to the analytical performance of the test. Attentive.ly, the associated logo, iDoneThis and all associated [employer] pablo are the registered trademarks of [employer]. All third republican pablo - (R) and (TM) - are the property of their respective owners. (C) [id number] [employer]. All rights reserved. Test Performed at: [facility] [address] [place] [address] ??[id number] ? I Shea LYNNE, PhD, JONAS Blood Venous blood specimen / Unknown 10/03/2024 5:20 AM EDT 10/03/2024 6:22 AM EDT us Antonio Mcmillan MD LAB BLOOD ORDERABLES Final Resul t [facility] [address] [place] [address] * Antimitochondrial antibody (10/03/2024 5:20 AM EDT) Mitochondrial Antibody Quantitative 10.6 <=20.0 units LAB CHEMISTRY METHOD 10/03/2024 11:42 AM EDT [facility] Mitochondrial Antibody Qualitative Negative Negative LAB CHEMISTRY METHOD 10/03/2024 11:42 AM EDT [facility] Blood Venous blood specimen / Unknown 10/03/2024 5:20 AM EDT 10/03/2024 6:22 AM EDT us Antonio Mcmillan MD LAB BLOOD ORDERABLES Final Resul t Performing Organization Address City/[facility]/ZIP Co de Phone Number [facility] [address] [place] [address], [place] [phone] * Alpha fetoprotein tumor marker (10/03/2024 5:20 AM EDT) [facility] AFP <2.5 0.0 - 8.0 ng/mL LAB CHEMISTRY METHOD 10/03/2024 9:08 AM EDT [facility] Blood Venous blood specimen / Unknown 10/03/2024 5:20 AM EDT 10/03/2024 6:22 AM EDT Narrative [facility] - 10/03/2024 9:08 AM EDT The Siemens Advia GPMESSaur Chemiluminescent Immunoassay is used. Results obtained with different assay methods or kits cannot be used interchangeably. Results cannot be interpreted as absolute evidence of the presence or absence of malignant disease. us Antonio Mcmillan MD LAB BLOOD ORDERABLES Final Resul t Performing Organization Address [facility] Co de Phone Number [facility] [address] [place] [address], [place] [phone] * Smooth muscle antibody IgG (10/03/2024 5:20 AM EDT) [facility] Smooth Muscle (F-Actin) IgG Ab 9 <20 UNITS 10/08/2024 1:56 PM EDT [facility] Comment: Interpretation: Negative Test performed at [facility], [address] [place], [place] ??[address] ? [phone] Elizabeth Huertas MD, PhD - Rn Document Improvement Blood Venous blood specimen / Unknown 10/03/2024 5:20 AM EDT 10/03/2024 6:22 AM EDT us Antonio Mcmillan MD LAB BLOOD ORDERABLES Final Resul t [facility] [address] [place] [address] * Ferritin (10/03/2024 5:20 AM EDT) Ferritin 43 26 - 388 ng/mL LAB CHEMISTRY METHOD 10/03/2024 6:55 AM EDT [facility] Blood Venous blood specimen / Unknown 10/03/2024 5:20 AM EDT 10/03/2024 6:22 AM EDT us Antonio Mcmillan MD LAB BLOOD ORDERABLES Final Resul t [facility] [address] [place] [address], documented in this encounter Visit Diagnoses Diagnosis Other senior care (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 documented in this encounter Care Teams Head Of Mobile Relationship Specialty Start Date End Date Antonio Mcmillan MD [address] [place] [address] Dr [address] [place], [place] PCP - General Internal Medicine 08/10/24 documented as of this encounter
--- OUTSIDE RECORDS SUMMARY | 2024-10-24 09:54 | XMS_ITS | Encounter Summary ---
Author Organization [employer] Address [address] [place] [address] Care Team Providers Care Auto Customize Painter Name Role Phone Antonio Mcmillan MD Primary Care Provider [phone] Encounter Details Date Type Department Care Team (Late st Contact Info) Description 06/05/2024 Lab Requisition [facility] - Main Lab [address] [facility] [place] [address] Antonio Mcmillan MD [address] [place] [address] [address] [place] Diffuse traumatic brain injury with loss of consciousness of unspecified duration, sequela (CMS/HCC V24) Social History Tobacco Use Types Packs/Day Years [...] CBC auto differential (06/05/2024 6:00 AM EST) [facility] WBC 4.8 4.8 - 10.8 K/mcL LAB HEMETOLOGY METHOD 06/05/2024 7:01 AM [facility] RBC 4.70 4.50 - 5.50 M/mcL LAB HEMETOLOGY METHOD 06/05/2024 7:01 AM [facility] Hemoglobin 14.0 13.5 - 17.5 g/dL LAB HEMETOLOGY METHOD 06/05/2024 7:01 AM [facility] Hematocrit 45.0 42.0 - 54.0 % LAB HEMETOLOGY METHOD 06/05/2024 7:01 AM [facility] MCV 95.9 79.0 - 98.0 FL LAB HEMETOLOGY METHOD 06/05/2024 7:01 AM [facility] MCH 29.9 27.0 - 32.0 pcg LAB HEMETOLOGY METHOD 06/05/2024 7:01 AM [facility] MCHC 31.1(L) 32.0 - 37.0 g/dL LAB HEMETOLOGY METHOD 06/05/2024 7:01 AM [facility] RDW 13.9 11.0 - 15.0 % LAB HEMETOLOGY METHOD 06/05/2024 7:01 AM [facility] Platelets 175 130 - 400 K/mcL LAB HEMETOLOGY METHOD 06/05/2024 7:01 AM [facility] MPV 9.5 7.0 - 11.0 FL LAB HEMETOLOGY METHOD 06/05/2024 7:01 AM [facility] NRBC 0.0 <1.0 % LAB HEMETOLOGY METHOD 06/05/2024 7:01 AM [facility] NRBC Absolute 0.00 <0.10 K/mcL LAB HEMETOLOGY METHOD 06/05/2024 7:01 AM [facility] Neutrophils Relative 43.8 % LAB HEMETOLOGY METHOD 06/05/2024 7:01 AM [facility] Lymphocytes Relative 44.9 % LAB HEMETOLOGY METHOD 06/05/2024 7:01 AM [facility] Monocytes Relative 10.1 % LAB HEMETOLOGY METHOD 06/05/2024 7:01 AM [facility] Eosinophils Relative 0.4 % LAB HEMETOLOGY METHOD 06/05/2024 7:01 AM [facility] Basophils Relative 0.2 % LAB HEMETOLOGY METHOD 06/05/2024 7:01 AM [facility] Immature Granulocytes Relative 0.6 % LAB HEMETOLOGY METHOD 06/05/2024 7:01 AM [facility] Neutrophils Absolute 2.09 1.50 - 7.00 K/mcL LAB HEMETOLOGY METHOD 06/05/2024 7:01 AM [facility] Lymphocytes Absolute 2.14 1.00 - 5.00 K/mcL LAB HEMETOLOGY METHOD 06/05/2024 7:01 AM [facility] Monocytes Absolute 0.48 0.20 - 1.00 K/mcL LAB HEMETOLOGY METHOD 06/05/2024 7:01 AM [facility] Eosinophils Absolute 0.02 0.00 - 0.50 K/mcL LAB HEMETOLOGY METHOD 06/05/2024 7:01 AM [facility] Basophils Absolute 0.01 0.00 - 0.20 K/mcL LAB HEMETOLOGY METHOD 06/05/2024 7:01 AM [facility] Immature Granulocytes Absolute 0.03 0.00 - 0.03 K/mcL LAB HEMETOLOGY METHOD 06/05/2024 7:01 AM [facility] Blood Venous blood specimen / Unknown 06/05/2024 6:00 AM EST 06/05/2024 6:45 AM EST us Antonio Mcmillan MD LAB BLOOD ORDERABLES Final Resul t Performing Organization Address [facility]/ZIP Co de Phone Number [facility] [address] [place] [address], [place] [phone] * (ABNORMAL) Ammonia (06/05/2024 6:00 AM EST) Ammonia 82(H) 11 - 35 mcmol/L LAB CHEMISTRY METHOD 06/05/2024 7:14 AM [facility] Blood Venous blood specimen / Unknown 06/05/2024 6:00 AM EST 06/05/2024 6:45 AM EST us Antonio Mcmillan MD LAB BLOOD ORDERABLES Final Resul t Performing Organization Address [facility] de Phone Number [facility] [address] [place] [address], [place] [phone] * (ABNORMAL) Comprehensive metabolic panel (06/05/2024 6:00 AM EST) Pathologist [facility] Sodium 141 133 - 145 mmol/L LAB CHEMISTRY METHOD 06/05/2024 7:23 AM [facility] Potassium 4.4 3.5 - 5.5 mmol/L LAB CHEMISTRY METHOD 06/05/2024 7:23 AM [facility] Chloride 102 96 - 110 mmol/L LAB CHEMISTRY METHOD 06/05/2024 7:23 AM [facility] CO2 34(H) 21 - 32 mmol/L LAB CHEMISTRY METHOD 06/05/2024 7:23 AM [facility] Anion Gap 5 3 - 11 LAB CHEMISTRY METHOD 06/05/2024 7:23 AM [facility] Glucose 133(H) 70 - 100 mg/dL LAB CHEMISTRY METHOD 06/05/2024 7:23 AM [facility] BUN 8 5 - 25 mg/dL LAB CHEMISTRY METHOD 06/05/2024 7:23 AM [facility] Creatinine 0.68(L) 0.70 - 1.30 mg/dL LAB CHEMISTRY METHOD 06/05/2024 7:23 AM [facility] eGFR 124 >=60 mL/min/1. 73m2 LAB CHEMISTRY METHOD 06/05/2024 7:23 AM [facility] Comment:Calculation based on the??Chronic Kidney Disease Epidemiology Collaboration (CKD-EPI) equation refit??without adjustment for race. BUN/Creatinine Ratio 11.8 LAB CHEMISTRY METHOD 06/05/2024 7:23 AM [facility] Calcium 9.3 8.5 - 10.5 mg/dL LAB CHEMISTRY METHOD 06/05/2024 7:23 AM [facility] AST (SGOT) 38 10 - 42 unit/L LAB CHEMISTRY METHOD 06/05/2024 7:23 AM [facility] ALT (SGPT) 59 10 - 60 unit/L LAB CHEMISTRY METHOD 06/05/2024 7:23 AM [facility] Alkaline Phosphatase 69 42 - 121 unit/L LAB CHEMISTRY METHOD 06/05/2024 7:23 AM [facility] Total Protein 6.3 6.0 - 8.0 g/dL LAB CHEMISTRY METHOD 06/05/2024 7:23 AM [facility] Albumin 3.1(L) 3.2 - 5.0 g/dL LAB CHEMISTRY METHOD 06/05/2024 7:23 AM [facility] Total Bilirubin 0.3 0.0 - 1.4 mg/dL LAB CHEMISTRY METHOD 06/05/2024 7:23 AM [facility] Blood Venous blood specimen / Unknown 06/05/2024 6:00 AM EST 06/05/2024 6:45 AM EST us Antonio Mcmillan MD LAB BLOOD ORDERABLES Final Resul t [facility] [address] [place] [address], documented in this encounter Visit Diagnoses Diagnosis Diffuse traumatic brain injury with loss of consciousness of unspecified duration, sequela (CMS/HCC V24) documented in this encounter Care Teams Auto Customize Painter Relationship Specialty Start Date End Date Antonio Mcmillan MD [address] [place] [address] Dr [address] [place], [place] PCP - General Internal Medicine 08/10/24 documented as of this encounter
--- OUTSIDE RECORDS SUMMARY | 2024-10-24 09:54 | XMS_ITS | Encounter Summary ---
Author Organization [employer] Address [address] [place] [address] Care Team Providers Care Crown Ironer Name Role Phone Antonio Mcmillan MD Primary Care Provider [phone] Encounter Details Date Type Department Care Team (Late st Contact Info) Description 09/11/2024 Lab Requisition [facility] - Main Lab [address] [facility] [place] [address] Antonio Mcmillan MD [address] [place] [address] [address] [place], [place] Diffuse traumatic brain injury with loss [...] CBC auto differential (09/11/2024 6:50 AM EDT) Pathologist [facility] WBC 6.5 4.8 - 10.8 [...] LAB HEMETOLOGY METHOD 09/11/2024 8:[address] [facility] Monocytes Absolute 0.53 0.20 - 1.00 K/[facility] LAB HEMETOLOGY METHOD 09/11/2024 8:[address] [facility] Eosinophils Absolute 0.04 0.00 - 0.50 K/[facility] LAB HEMETOLOGY METHOD 09/11/2024 8:[address] [facility] Basophils Absolute 0.03 0.00 - 0.20 K/[facility] LAB HEMETOLOGY METHOD 09/11/2024 8:[address] [facility] Immature Granulocytes Absolute 0.02 0.00 - 0.03 K/[facility] LAB HEMETOLOGY METHOD 09/11/2024 8:[address] [facility] Blood Venous blood specimen / Unknown 09/11/2024 6:50 AM EDT 09/11/2024 7:44 AM EDT us Antonio Mcmillan MD LAB BLOOD ORDERABLES Final Resul t Performing Organization Address City/[facility]/ZIP Co de Phone Number [facility] [address] [place] [address], [place] [phone] * Thyroid stimulating hormone (09/11/2024 6:50 AM EDT) TSH 2.30 0.40 - 4.00 mcIU/mL LAB CHEMISTRY METHOD 09/11/2024 8:[address] [facility] Blood Venous blood specimen / Unknown 09/11/2024 6:50 AM EDT 09/11/2024 7:44 AM EDT us Antonio Mcmillan MD LAB BLOOD ORDERABLES Final Resul t [facility] [address] [place] [address], [place] [phone] * Thyroxine free (09/11/2024 6:50 AM EDT) Free T4 0.84 0.70 - 1.80 ng/dL LAB CHEMISTRY METHOD 09/11/2024 8:[address] [facility] Blood Venous blood specimen / Unknown 09/11/2024 6:50 AM EDT 09/11/2024 7:44 AM EDT us Antonio Mcmillan MD LAB BLOOD ORDERABLES Final Resul t Performing Organization Address City/[facility] Co de Phone Number [facility] [address] [place] [address], [place] [phone] * Valproic acid level, total (09/11/2024 6:50 AM EDT) [facility] Valproic Acid, Total 67 50 - 100 mcg/mL LAB CHEMISTRY METHOD 09/11/2024 8:[address] [facility] Blood Venous blood specimen / Unknown 09/11/2024 6:50 AM EDT 09/11/2024 7:44 AM EDT us Antonio Mcmillan MD LAB BLOOD ORDERABLES Final Resul t Performing Organization Address [facility] de Phone Number [facility] [address] [place] [address], [place] [phone] * (ABNORMAL) Ammonia (09/11/2024 6:50 AM EDT) Pathologist [facility] Ammonia 53(H) 11 - 35 mcmol/L LAB CHEMISTRY METHOD 09/11/2024 8:[address] [facility] Blood Venous blood specimen / Unknown 09/11/2024 6:50 AM EDT 09/11/2024 7:44 AM EDT us Antonio Mcmillan MD LAB BLOOD ORDERABLES Final Resul t Performing Organization Address City/[facility]/ZIP Co de Phone Number [facility] [address] [place] [address], [place] [phone] * (ABNORMAL) Lipid panel with reflex to direct LDL (09/11/2024 6:50 AM EDT) Cholesterol 138 0 - 200 mg/dL LAB CHEMISTRY METHOD 09/11/2024 8:[address] [facility] Triglycerides 200(H) 0 - 150 mg/dL LAB CHEMISTRY METHOD 09/11/2024 8:[address] [facility] HDL 30(L) >=40 mg/dL LAB CHEMISTRY METHOD 09/11/2024 8:[address] [facility] LDL Calculated 68 0 - 100 mg/dL LAB CHEMISTRY METHOD 09/11/2024 8:[address] [facility] VLDL Cholesterol Carter 40 mg/dL LAB CHEMISTRY METHOD 09/11/2024 8:[address] [facility] Non HDL Chol. (LDL+VLDL) 108 <145 mg/dL LAB CHEMISTRY METHOD 09/11/2024 8:[address] [facility] Chol/HDL Ratio 4.6(H) 0.0 - 4.4 LAB CHEMISTRY METHOD 09/11/2024 8:[address] [facility] Blood Venous blood specimen / Unknown 09/11/2024 6:50 AM EDT 09/11/2024 7:44 AM EDT us Antonio Mcmillan MD LAB BLOOD ORDERABLES Final Resul t [facility] [address] [place] [address], [place] [phone] * (ABNORMAL) Comprehensive metabolic panel (09/11/2024 6:50 AM EDT) Sodium 140 133 - 145 mmol/L LAB CHEMISTRY METHOD 09/11/2024 8:[address] [facility] Potassium 4.3 3.5 - 5.5 [...] LAB CHEMISTRY METHOD 09/11/2024 8:[address] [facility] Total Protein 6.6 6.0 - 8.0 g/dL LAB CHEMISTRY METHOD 09/11/2024 8:[address] [facility] Albumin 3.3 3.2 - 5.0 g/dL LAB CHEMISTRY METHOD 09/11/2024 8:[address] [facility] Total Bilirubin 0.5 0.0 - 1.4 mg/dL LAB CHEMISTRY METHOD 09/11/2024 8:[address] [facility] Blood Venous blood specimen / Unknown 09/11/2024 6:50 AM EDT 09/11/2024 7:44 AM EDT us Antonio Mcmillan MD LAB BLOOD ORDERABLES Final Resul t [facility] [address] [place] [address], documented in this encounter Visit Diagnoses Diagnosis Diffuse traumatic brain injury with loss of consciousness of unspecified duration, sequela (CMS/HCC V24) documented in this encounter Care Teams Crown Ironer Relationship Specialty Start Date End Date Antonio Mcmillan MD [address] [place] [address] Dr [address] [place] PCP - General Internal Medicine 08/10/24 documented as of this encounter
--- OUTSIDE RECORDS SUMMARY | 2024-10-24 09:54 | XMS_ITS | Clinical Summary ---
Author Organization [address] Address [address] [place] [address] Phone Care Team Providers Care Drilling Engineering Manager Name Role Phone Antonio Mcmillan DO Primary Care Provider [phone] Allergies No known active allergies Medications acetaminophen [...] Years Used Date Smoking Tobacco: Never Assessed [facility] Utilities Answer Date Recorded In the past 12 months has th e [employer], gas, oil, or water [employer] threatened to shut off services in your [...] Tetanus adult (Td q 10,TDAP once) 2007 Covid-19 vaccine series ( season) 2024 06/11/2022, 02/25/2022, 06/30/2021, Additional history exists Influenza vaccine 03/04/2025 05/03/2022 RSV Immunization (1 - 1-dose 75+ series) 2062 Meningococcal Vaccine Aged Out No donna farzaneh eligible based on patient's age to complete this topic Pneumococcal Vaccine (2 - 49 years) Aged Out No longer eligible based on patient's age to complete this topic Insurance [place] on file [facility] at [address] [address] Advance Directives * Full Code (Latest Code Status on File) Date Activated Date Inactivated Comments 02/17/2024 5:24 PM 02/21/2024 2:32 PM Question Answer Comments With Whom was the Code Status Discussed? Patient Care Teams Drilling Engineering Manager Relationship Specialty Start Date End Date Antonio Mcmillan DO [address] [place] [address] PCP - General Internal Medicine 02/17/24
--- OUTSIDE RECORDS SUMMARY | 2024-10-24 09:54 | XMS_ITS | Clinical Summary ---
Author Organization 299 [facility] Address [address] [place] [address] Phone Care Team Providers Care Specialist Wound Care Name Role Phone Antonio Mcmillan MD Primary Care Provider [phone] Encounters Date Type Department Care Team Description 10/03/2024 Lab Requisition [facility] [address] [place] [phone] Antonio Mcmillan MD Other third hand (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 09/11/2024 Lab Requisition [facility] [address] [place] [phone] Antonio Mcmillan MD Diffuse traumatic brain injury with loss of consciousness of unspecified duration, sequela (CMS/HCC V24) 08/10/2024 Lab Requisition [facility] [address] [place] [phone] Antonio Mcmillan MD Other correction (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 from Last 3 Months [...] 19+ 3-dose series) 2006 HIV Screening 07/29/2023 Social Influencers of Health Screening 07/29/2023 COVID-19 Vaccine (1 - 2023-2 5 season) 2024 Depression Screening 02/16/2025 02/17/2024 Influenza Vaccine (Season Ended) 2025 Cholesterol Screening (Lipid Panel) 09/11/2029 09/11/2024 Hepatitis C Screening Completed 10/03/2024 HIB Vaccines Aged Out No longer eligi [...] age to complete this topic Meningococcal B Vaccine Aged Out No l onger eligible based on patient's age to complete [...] Name Priority Date/Time Associated Diagnosis Comments HEPATITIS A ANTIBODY IGM Routine 025 5:20 AM EDT Other third hand (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 SST - GOLD Routine 10/03/2024 5:20 AM EDT Other third hand (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 SST - GOLD Routine 10/03/2024 5:20 AM EDT Other correction (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 SST - GOLD Routine 10/03/2024 5:20 AM EDT Other third hand (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 RED - PLAIN Routine 10/03/2024 5:20 AM EDT Other correction (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 HEPATITIS C ANTIBODY Routine 10/03/2024 5:20 AM EDT Other third hand (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 HEPATITIS A ANTIBODY TOTAL WITH REFLEX IGM Routine 10/03/2024 5:20 AM EDT Other correction (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 HEPATITIS B SCREENING PANEL Routine 10/03/2024 5:20 AM EDT Other correction (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 HEMOCHROMATOSIS MUTATION Routine 025 5:20 AM EDT Other third hand (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 LIVER FIBROSIS, FIBROTEST-ACTITEST PANEL Routine 10/03/2024 5:20 AM EDT Other third hand (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 ANTIMITOCHONDRIAL ANTIBODY Routine 10/03/2024 5:20 AM EDT Other correction (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 ALPHA FETOPROTEIN TUMOR MARKER Routine 10/03/2024 5:20 AM EDT Other correction (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 SMOOTH MUSCLE ANTIBODY IGG Routine 10/03/2024 5:20 AM EDT Other correction (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 FERRITIN Routine 10/03/2024 5:20 AM EDT Other correction (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 CBC WITH AUTO DIFFERENTIAL Routine 09/11/2024 6:50 [...] AMMONIA Routine 08/10/2024 6:20 AM EST Other third hand (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 from Last 3 Months Results * Hepatitis C antibody (10/03/2024 5:20 AM EDT) Hepatitis C Antibody Negative Negative LAB CHEMISTRY METHOD 10/03/2024 9:48 AM EDT [facility] Blood Venous blood specimen / Unknown 10/03/2024 5:20 AM EDT 10/03/2024 6:22 AM EDT us Antonio Mcmillan MD LAB BLOOD ORDERABLES Final Resul t [facility] [address] [place] [address], [place] [phone] * SST tube (10/03/2024 5:20 AM EDT) Only the most recent of3 resultswithin the time period is included. Extra Tube Hold for add-ons. 10/03/2024 8:01 AM EDT [facility] Comment:Auto resulted. Blood Venous blood specimen / Unknown 10/03/2024 5:20 AM EDT 10/03/2024 6:22 AM EDT us Antonio Mcmillan MD LAB BLOOD ORDERABLES Final Resul t Performing Organization Address [facility] de Phone Number [facility] [address] [place] [address], * (ABNORMAL) Hepatitis A antibody total with reflex IgM (10/03/2024 5:20 AM EDT) Pathologist [facility] Hep A Total Ab Positive( A) Negative LAB CHEMISTRY METHOD 10/03/2024 9:49 AM EDT [facility] Blood Venous blood specimen / Unknown 10/03/2024 5:20 AM EDT 10/03/2024 6:22 AM EDT Narrative [facility] - 10/03/2024 9:49 AM EDT Over the counter supplements containing high doses of biotin may interfere with this assay. ??If interference is suspected, patients shoud be retested after refraining from biotin supplements for 72 hours. us Antonio Mcmillan MD LAB BLOOD ORDERABLES Final Resul t Performing Organization Address [facility] de Phone Number [facility] [address] [place] [address], * (ABNORMAL) Liver fibrosis, fibrotest-actitest panel (10/03/2024 5:20 AM EDT) [facility] Fibrosis Score 0.19 10/11/2024 7:39 PM EDT [...] U/L 10/11/2024 7:39 PM EDT [facility] [id number] n 162 106 - 279 mg/dL 10/11/2024 7:39 PM EDT [facility] Haptoglobin 135 43 - 212 mg/dL 10/11/2024 7:39 PM EDT [facility] Apolipoprotein A1 110 94 - 176 mg/dL 10/11/2024 7:39 PM EDT [facility] Reference ID [id number] 10/11/2024 7:39 PM EDT [facility] Footnote SEE NOTE 10/11/2024 7:39 PM EDT [facility] Comment: The reliability of results is dependent on compliance with the preanalytical and analytical conditions recommended by [employer]. The tests have to be deferred for: [...] The performance characteristics have been determined by [facility], [place]. It has not been cleared or approved by the U.S. Food and Drug Administration. Performance characteristics refer to the analytical performance of the test. [employer], the associated logo, [employer] and all associated [employer] pablo are the registered trademarks of [employer]. All third libertarian pablo - (R) and (TM) - are the property of their respective owners. (C) 5207-9473 [employer]. All rights reserved. Test Performed at: [facility] [address] [place] [address] ??[phone] ? I Shea LYNNE, PhD, JONAS Blood Venous blood specimen / Unknown 10/03/2024 5:20 AM EDT 10/03/2024 6:22 AM EDT us Antonio Mcmillan MD LAB BLOOD ORDERABLES Final Resul t [address] [place] [address] * Hepatitis B screening panel (10/03/2024 5:20 AM EDT) Hepatitis B Surface Ag Negative Negative LAB CHEMISTRY METHOD 10/03/2024 9:49 AM EDT [facility] Hep B Core Total Ab Negative Negative LAB CHEMISTRY METHOD 10/03/2024 9:49 AM EDT [facility] Hepatitis B Surface Ab Negative Negative LAB CHEMISTRY METHOD 10/03/2024 9:49 AM EDT [facility] Blood Venous blood specimen / Unknown 10/03/2024 5:20 AM EDT 10/03/2024 6:22 AM EDT us Antonio Mcmillan MD LAB BLOOD ORDERABLES Final Resul t Performing Organization Address [facility] Co de Phone Number [facility] [address] [place] [address], [place] [phone] * Red tube (10/03/2024 5:20 AM EDT) Extra Tube Hold for add-ons. 10/03/2024 8:01 AM EDT [facility] Comment:Auto resulted. Blood Venous blood specimen / Unknown 10/03/2024 5:20 AM EDT 10/03/2024 6:22 AM EDT us Antonio Mcmillan MD LAB BLOOD ORDERABLES Final Resul t Performing Organization Address [facility] de Phone Number [facility] [address] [place] [address], [place] [phone] * Hemochromatosis mutation (10/03/2024 5:20 AM EDT) Hereditary Hemochromatosis See Below 10/16/2024 4:36 PM [...] and results monitored by Tony Hamlin, Ph.D., RUBEN CYR CG[facility]. DETAILED ASSAY INFORMATION: Hereditary hemochromatosis (HH) is [...] variants in the HFE gene, C282Y (NM 394039.2: c.845G>A, p.[id number]) and H63D (NM 532771.2: c.187C>G, p.Mkp18Pei), that are commonly associated with HH. These [...] Health care providers, please contact your local [employer] genetic counselor or call [phone] for assistance with the interpretation of these results. This test was developed and its analytical performance characteristics have been determined by [employer] [facility]. It has not been cleared or approved by FDA. This assay has been validated pursuant to the CLIA regulations and is used for clinical purposes. For more information, please refer to http://education.[employer].com/faq/hemochromatosis. (This link is being provided for informational/educational purposes only.) A portion of the testing was performed at [facility]. Reviewed and signed by Laboratory testing supervised and results monitored by Tony Hamlin, Ph.D., RUBEN CYR CG[facility], Signed on 10/16/2024 at 10:39 Test Performed at: [employer] [address] ??[phone] ? I Shea LYNNE, PhD, JONAS Blood Venous blood specimen / Unknown 10/03/2024 5:20 AM EDT 10/03/2024 6:22 AM EDT Antonio Mcmillan MD LAB MOLECULAR DIAGNOSTICS ORDERA BLES Final Result [facility] [address] [place] [address] * Smooth muscle antibody IgG (10/03/2024 5:20 AM EDT) Smooth Muscle (F-Actin) IgG Ab 9 <20 UNITS 10/08/2024 1:56 PM EDT [facility] Comment: Interpretation: Negative Test performed at [facility], [address] [place], [place] ??[address] ? [phone] Elizabeth Huertas MD, PhD - Aircraft Maintenance Supervisor Blood Venous blood specimen / Unknown 10/03/2024 5:20 AM EDT 10/03/2024 6:22 AM EDT Antonio Mcmillan MD LAB BLOOD ORDERABLES Final Resul t Performing Organization Address City/[facility]/ZIP Co de Phone Number [facility] [address] [place] [place] [address] * Hepatitis A antibody IgM (10/03/2024 5:20 AM EDT) Hepatitis A Antibody IgM Negative Negative LAB CHEMISTRY METHOD 10/03/2024 11:18 AM EDT [facility] Blood Venous blood specimen / Unknown 10/03/2024 5:20 AM EDT 10/03/2024 6:22 AM EDT Narrative [facility] - 10/03/2024 11:18 AM EDT Over the counter supplements containing high doses of biotin may interfere with this assay. ??If interference is suspected, patients shoud be retested after refraining from biotin supplements for 72 hours. us Antonio Mcmillan MD LAB BLOOD ORDERABLES Final Resul t Performing Organization Address [facility] de Phone Number [facility] [address] [place] [address], * Alpha fetoprotein tumor marker (10/03/2024 5:20 AM EDT) AFP <2.5 0.0 - 8.0 ng/mL LAB CHEMISTRY METHOD 10/03/2024 9:08 AM EDT [facility] Blood Venous blood specimen / Unknown 10/03/2024 5:20 AM EDT 10/03/2024 6:22 AM EDT Narrative [facility] - 10/03/2024 9:08 AM EDT The Siemens Advia Centaur Chemiluminescent Immunoassay is used. Results obtained with different assay methods or kits cannot be used interchangeably. Results cannot be interpreted as absolute evidence of the presence or absence of malignant disease. us Antonio Mcmillan MD LAB BLOOD ORDERABLES Final Resul t Performing Organization Address [facility] de Phone Number [facility] [address] [place] [address], * Antimitochondrial antibody (10/03/2024 5:20 AM EDT) Mitochondrial Antibody Quantitative 10.6 <=20.0 units LAB CHEMISTRY METHOD 10/03/2024 11:42 AM EDT [facility] Mitochondrial Antibody Qualitative Negative Negative LAB CHEMISTRY METHOD 10/03/2024 11:42 AM EDT [facility] Blood Venous blood specimen / Unknown 10/03/2024 5:20 AM EDT 10/03/2024 6:22 AM EDT us Antonio Mcmillan MD LAB BLOOD ORDERABLES Final Resul t Performing Organization Address City/[facility]/ZIP Co de Phone Number [facility] [address] [place] [address], [place] [phone] * Ferritin (10/03/2024 5:20 AM EDT) Ferritin 43 26 - 388 ng/mL LAB CHEMISTRY METHOD 10/03/2024 6:55 AM EDT [facility] Blood Venous blood specimen / Unknown 10/03/2024 5:20 AM EDT 10/03/2024 6:22 AM EDT us Antonio Mcmillan MD LAB BLOOD ORDERABLES Final Resul t Performing Organization Address [facility]/ZIP Co de Phone Number [facility] [address] [place] [address], [place] [phone] * (ABNORMAL) Lipid panel with reflex to direct LDL (09/11/2024 6:50 AM EDT) [facility] Cholesterol 138 0 - 200 mg/dL LAB CHEMISTRY METHOD 09/11/2024 8:25 AM EDT [facility] Triglycerides 200(H) 0 - 150 mg/dL LAB CHEMISTRY METHOD 09/11/2024 8:25 AM [facility] HDL 30(L) >=40 mg/dL LAB CHEMISTRY METHOD 09/11/2024 8:25 AM EDT [facility] LDL Calculated 68 0 - 100 mg/dL LAB CHEMISTRY METHOD 09/11/2024 8:25 AM EDT [facility] VLDL Cholesterol Carter 40 mg/dL LAB CHEMISTRY METHOD 09/11/2024 8:25 AM T [facility] Non HDL Chol. (LDL+VLDL) 108 <145 mg/dL LAB CHEMISTRY METHOD 09/11/2024 8:25 AM EDT [facility] Chol/HDL Ratio 4.6(H) 0.0 - 4.4 LAB CHEMISTRY METHOD 09/11/2024 8:25 AM EDT [facility] Blood Venous blood specimen / Unknown 09/11/2024 6:50 AM EDT 09/11/2024 7:44 AM EDT us Antonio Mcmillan MD LAB BLOOD ORDERABLES Final Resul t [facility] [address] [place] [address], [place] [phone] * (ABNORMAL) CBC auto differential (09/11/2024 6:50 AM EDT) WBC 6.5 4.8 - 10.8 K/mcL LAB HEMETOLOGY METHOD 09/11/2024 8:44 AM EDT [facility] RBC 5.40 4.50 - 5.50 M/mcL LAB HEMETOLOGY METHOD 09/11/2024 8:44 AM EDT [facility] Hemoglobin 15.9 13.5 - 17.5 g/dL LAB HEMETOLOGY METHOD 09/11/2024 8:44 AM EDT [facility] Hematocrit 50.2 42.0 - 54.0 % LAB HEMETOLOGY METHOD 09/11/2024 8:44 AM EDT [facility] MCV 92.3 79.0 - 98.0 FL LAB HEMETOLOGY METHOD 09/11/2024 8:44 AM EDT [facility] MCH 29.2 27.0 - 32.0 pcg LAB HEMETOLOGY METHOD 09/11/2024 8:44 AM EDT [facility] MCHC 31.7(L) 32.0 - 37.0 g/dL LAB HEMETOLOGY METHOD 09/11/2024 8:44 AM EDT [facility] RDW 14.4 11.0 - 15.0 % LAB HEMETOLOGY METHOD 09/11/2024 8:44 AM [facility] Platelets 09/11/2024 8:44 AM [facility] Comment:Not measured. Platel ets appear adequate but clumped MPV 10.8 7.0 - 11.0 FL LAB HEMETOLOGY METHOD 09/11/2024 8:44 AM [facility] NRBC 0.0 <1.0 % LAB HEMETOLOGY METHOD 09/11/2024 8:44 AM [facility] NRBC Absolute 0.00 <0.10 K/mcL LAB HEMETOLOGY METHOD 09/11/2024 8:44 AM [facility] Neutrophils Relative 38.9 % LAB HEMETOLOGY METHOD 09/11/2024 8:44 AM [facility] Lymphocytes Relative 51.5 % LAB HEMETOLOGY METHOD 09/11/2024 8:44 AM [facility] Monocytes Relative 8.2 % LAB HEMETOLOGY METHOD 09/11/2024 8:44 AM [facility] Eosinophils Relative 0.6 % LAB HEMETOLOGY METHOD 09/11/2024 8:44 AM [facility] Basophils Relative 0.5 % LAB HEMETOLOGY METHOD 09/11/2024 8:44 AM [facility] Immature Granulocytes Relative 0.3 % LAB HEMETOLOGY METHOD 09/11/2024 8:44 AM [facility] Neutrophils Absolute 2.52 1.50 - 7.00 K/mcL LAB HEMETOLOGY METHOD 09/11/2024 8:44 AM [facility] Lymphocytes Absolute 3.33 1.00 - 5.00 K/mcL LAB HEMETOLOGY METHOD 09/11/2024 8:44 AM [facility] Monocytes Absolute 0.53 0.20 - 1.00 K/mcL LAB HEMETOLOGY METHOD 09/11/2024 8:44 AM EDT [facility] Eosinophils Absolute 0.04 0.00 - 0.50 K/[facility] LAB HEMETOLOGY METHOD 09/11/2024 8:44 AM EDT [facility] Basophils Absolute 0.03 0.00 - 0.20 K/[facility] LAB HEMETOLOGY METHOD 09/11/2024 8:44 AM EDT [facility] Immature Granulocytes Absolute 0.02 0.00 - 0.03 K/[facility] LAB HEMETOLOGY METHOD 09/11/2024 8:44 AM EDT [facility] Blood Venous blood specimen / Unknown 09/11/2024 6:50 AM EDT 09/11/2024 7:44 AM EDT us Antonio Mcmillan MD LAB BLOOD ORDERABLES Final Resul t Performing Organization Address City/[facility]/ZIP Co de Phone Number [facility] [address] [place] [address], [place] [phone] * Thyroid stimulating hormone (09/11/2024 6:50 AM EDT) TSH 2.30 0.40 - 4.00 mcIU/mL LAB CHEMISTRY METHOD 09/11/2024 8:29 AM EDT [facility] Blood Venous blood specimen / Unknown 09/11/2024 6:50 AM EDT 09/11/2024 7:44 AM EDT us Antonio Mcmillan MD LAB BLOOD ORDERABLES Final Resul t [facility] [address] [place] [address], [place] [phone] * Thyroxine free (09/11/2024 6:50 AM EDT) Free T4 0.84 0.70 - 1.80 ng/dL LAB CHEMISTRY METHOD 09/11/2024 8:29 AM EDT [facility] Blood Venous blood specimen / Unknown 09/11/2024 6:50 AM EDT 09/11/2024 7:44 AM EDT us Antonio Mcmillan MD LAB BLOOD ORDERABLES Final Resul t Performing Organization Address [facility] Co de Phone Number [facility] [address] [place] [address], [place] [phone] * (ABNORMAL) Ammonia (09/11/2024 6:50 AM EDT) Only the most recent of2 resultswithin the time period is included. Ammonia 53(H) 11 - 35 mcmol/L LAB CHEMISTRY METHOD 09/11/2024 8:08 AM EDT [facility] Blood Venous blood specimen / Unknown 09/11/2024 6:50 AM EDT 09/11/2024 7:44 AM EDT us Antonio Mcmillan MD LAB BLOOD ORDERABLES Final Resul t Performing Organization Address [facility] de Phone Number [facility] [address] [place] [address], [place] [phone] * Valproic acid level, total (09/11/2024 6:50 AM EDT) Valproic Acid, Total 67 50 - 100 mcg/mL LAB CHEMISTRY METHOD 09/11/2024 8:25 AM EDT [facility] Blood Venous blood specimen / Unknown 09/11/2024 6:50 AM EDT 09/11/2024 7:44 AM EDT us Antonio Mcmillan MD LAB BLOOD ORDERABLES Final Resul t Performing Organization Address [facility] Co de Phone Number [facility] [address] [place] [address], [place] [phone] * (ABNORMAL) Comprehensive metabolic panel (09/11/2024 6:50 AM EDT) Sodium 140 133 - 145 mmol/L LAB CHEMISTRY METHOD 09/11/2024 8:25 AM [facility] Potassium 4.3 3.5 - 5.5 mmol/L LAB CHEMISTRY METHOD 09/11/2024 8:25 AM [facility] Comment:Hemolysis present Chloride 103 96 - 110 mmol/L LAB CHEMISTRY METHOD 09/11/2024 8:25 AM [facility] CO2 32 21 - 32 mmol/L LAB CHEMISTRY METHOD 09/11/2024 8:25 AM [facility] Anion Gap 5 3 - 11 LAB CHEMISTRY METHOD 09/11/2024 8:25 AM [facility] Glucose 115(H) 70 - 100 mg/dL LAB CHEMISTRY METHOD 09/11/2024 8:25 AM [facility] BUN 9 5 - 25 mg/dL LAB CHEMISTRY METHOD 09/11/2024 8:25 AM [facility] Creatinine 0.65(L) 0.70 - 1.30 mg/dL LAB CHEMISTRY METHOD 09/11/2024 8:25 AM [facility] eGFR 124 >=60 mL/min/1. 73m2 LAB CHEMISTRY METHOD 09/11/2024 8:25 AM [facility] Comment:Calculation based on the??Chronic Kidney Disease Epidemiology Collaboration (CKD-EPI) equation refit??without adjustment for race. BUN/Creatinine Ratio 13.8 LAB CHEMISTRY METHOD 09/11/2024 8:25 AM [facility] Calcium 8.9 8.5 - 10.5 mg/dL LAB CHEMISTRY METHOD 09/11/2024 8:25 AM [facility] AST (SGOT) 54(H) 10 - 42 unit/L LAB CHEMISTRY METHOD 09/11/2024 8:25 AM [facility] Comment:Hemolysis present ALT (SGPT) 65(H) 10 - 60 unit/L LAB CHEMISTRY METHOD 09/11/2024 8:25 AM EDT [facility] Alkaline Phosphatase 66 42 - 121 unit/L LAB CHEMISTRY METHOD 09/11/2024 8:25 AM EDT [facility] Total Protein 6.6 6.0 - 8.0 g/dL LAB CHEMISTRY METHOD 09/11/2024 8:25 AM EDT [facility] Albumin 3.3 3.2 - 5.0 g/dL LAB CHEMISTRY METHOD 09/11/2024 8:25 AM EDT [facility] Total Bilirubin 0.5 0.0 - 1.4 mg/dL LAB CHEMISTRY METHOD 09/11/2024 8:25 AM EDT [facility] Blood Venous blood specimen / Unknown 09/11/2024 6:50 AM EDT 09/11/2024 7:44 AM EDT us Antonio Mcmillan MD LAB BLOOD ORDERABLES Final Resul t [facility] [address] [place] [address], [place] [phone] from Last 3 Months Care Teams Specialist Wound Care Relationship Specialty Start Date End Date Antonio Mcmillan MD [address] [place] [address] Dr [address] [place], [place] PCP - General Internal Medicine 08/10/24
[2024-10-24] MEDS: Lactated Ringers 1,000 ML 999 ML IV (11:23)
--- NOTE | 2024-10-24 14:21 | P.HPHOSP_ITS ---
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 Patient reports that he had physical therapy yesterday with use of a TENS unit and had right arm pain afterwards. He states that he was medicated around 2:00 a.m. with Tylenol and that his pain became severe, 04/12 around 3 or 4:00 a.m.. He states pain has since fully resolved and denies current right arm pain. Patient noted to be febrile and tachycardic on arrival. Staff at [facility] reported to EMS that patient has had cough for past few weeks. ER Course Found to be febrile to 102.9. Given 1 L of lactated Ringer's and Tylenol. Chest x-ray with moderate to large volume right-sided pleural effusion with associated airspace disease. Admission requested Review of Systems 2 Review of Systems: Denies chest pain Admits to shortness of breath worse with exertion Admits to right arm pain that had resolved on arrival to ER Denies nausea vomiting diarrhea Denies fever chills PMFSH Medical History Hypoxia Asthma Chronic anticoagulation History of acute respiratory failure Aspiration pneumonia Acute and chronic respiratory failure with hypoxia Rhabdomyolysis Hypernatremia Pneumonia Epileptic seizure Acute hypoxic respiratory failure Pneumonia Psychogenic nonepileptic seizure Seizure disorder TBI (traumatic brain injury) Social History Household Members: Other Housing: Longterm Do you presently have visiting nurse or other home services: No Alcohol intake: never Patient Tobacco Use Status: Never used Tobacco e-Cigarette/Vaping Use: Never Used Advance Directives: Yes Advance Directives on File: Yes Advance Directives Date on File: 05/07/23 Do you have a plan to hurt others: No Plan service: No Meds Allergies Allergy/AdvReac Type Severity Reaction Status Date / Time amoxicillin Allergy Anaphylaxis Verified 10/24/24 07:16 sertraline [From Zoloft] Allergy Anaphylaxis Verified 10/24/24 07:16 Active Medications: Current Medications Acetaminophen (Acetaminophen 325 Mg Tablet) 650 mg PO Q6H PRN PRN Reason: Pain, Mild 1-3,fever,headache Calcium Carbonate (Calcium Carbonate 750 Mg Tab.Chew) 750 mg PO Q4H PRN PRN Reason: Heartburn Enoxaparin Sodium (Enoxaparin Sodium 40 Mg/0.4 Ml Syringe) 40 mg SUBCUT Q24H LG Vancomycin HCl (Vancomycin/Ns) 2,000 mg in 500 mls @ 250 mls/hr IV ONCE ONE Stop: 10/24/24 15:28 Lactated Ringer's (Lr) 1,000 mls @ 125 mls/hr IVCONT .Q8H LG Magnesium Hydroxide (Milk Of Magnesia 30 Ml Oral.Susp) 30 ml PO DAILY PRN PRN Reason: Constipation Melatonin (Melatonin 3 Mg Tablet) 6 mg PO BEDTIME PRN PRN Reason: Insomnia Morphine Sulfate (Morphine Sulfate 4 Mg/Ml Cartridge) 4 mg IVPUSH ONCE ONE; Protocol Stop: 10/24/24 14:20 Ondansetron HCl (Ondansetron Hcl 4 Mg/2 Ml Vial) 4 mg IVPUSH Q8H PRN PRN Reason: Nausea and Vomiting Sodium Chloride (0.9 % Sodium Chloride Flush 3 Ml Syringe) 3 ml IVFLUSH QSHIFT [facility] Home Medications ?Medication ?Instructions ?Recorded ?Confirmed ?Last Taken ?Type acetaminophen 325 mg tablet 650 mg PO Q6H PRN Fever Or Pain 04/15/23 10/24/24 Unknown History albuterol sulfate 90 mcg/actuation 2 puff inhalation Q6H PRN Wheezing 04/15/23 10/24/24 Unknown History aerosol inhaler citalopram 10 mg tablet 10 mg PO DAILY 04/15/23 10/24/24 Unknown History divalproex 500 mg tablet,delayed 500 mg PO BID 04/15/23 10/24/24 Unknown History release (Depakote) multivitamin 1 tab PO DAILY 04/15/23 10/24/24 Unknown History sennosides 8.6 mg tablet (senna) 8.6 mg PO DAILY PRN Constipation 04/15/23 10/24/24 Unknown History guaifenesin 100 mg/5 mL oral liquid 300 mg PO Q6H PRN Cough 05/03/23 10/24/24 Unknown History melatonin 5 mg tablet 5 mg PO BEDTIME 05/03/23 10/24/24 Unknown History polyvinyl alcohol 1.4 % eye drops 1 drp ophthalmic (eye) Q6H PRN Dry 05/03/23 10/24/24 Unknown History Eye(S) diphenhydramine HCl 25 mg capsule 25 mg PO BEDTIME PRN Insomnia 02/14/24 10/24/24 Unknown History (Allergy (diphenhydramine)) divalproex 250 mg tablet,delayed 250 mg PO BID 02/14/24 10/24/24 Unknown History release olanzapine 10 mg tablet 5 mg PO BEDTIME 04/02/24 10/24/24 Unknown History cyclobenzaprine 10 mg tablet 10 mg PO Q8H PRN Pain 10/01/24 10/24/24 Unknown History bisacodyl 10 mg rectal suppository 10 mg RI DAILY PRN Constipation 10/24/24 10/24/24 Unknown History hydroxyzine HCl 50 mg/mL 50 mg IM Q4H PRN Seizures 10/24/24 10/24/24 Unknown History intramuscular solution loperamide 2 mg tablet 2 mg PO Q2H PRN Diarrhea 10/24/24 10/24/24 Unknown History rosuvastatin 10 mg tablet (Crestor) 10 mg PO BEDTIME 10/24/24 10/24/24 Unknown History sodium phosphates 19 gram-7 118 ml RI DAILY PRN Constipation 10/24/24 10/24/24 Unknown History gram/118 mL enema (Fleet Enema) Physical Exam 2 Vital Signs and Narrative: Vital Signs: Last Vital Signs Temp 98.7 F 10/24/24 11:24 Pulse 115 H 10/24/24 11:24 Resp 18 10/24/24 11:24 BP 147/79 H 10/24/24 11:24 Pulse Ox 95 10/24/24 11:24 O2 Del Method Nasal Cannula 10/24/24 11:24 O2 Flow Rate 2 10/24/24 11:24 Oxygen Flow Rate 2 10/24/24 07:11 BMI result Body Mass Index 33.0 Const: Other: Awake alert ill-appearing Resp: Other: Diminished right base scattered wheezes throughout Cardio: Other: No S4; positive S1-S2; no S3 murmurs rubs or gallops GI: Other: Soft nontender nondistended normoactive bowel sounds Extrem: Other: No edema bilaterally Results Labs 10/24/24 08:35 10/24/24 08:35 Labs: Laboratory Results - last 24 hr 10/24/24 10/24/24 10/24/24 07:50 08:12 08:35 MCV 89.6 MCH 29.6 MCHC 33.0 RDW 14.2 Plt Count 203 MPV 9.2 L Immature Gran % (Auto) 0.4 Neut % (Auto) 72.5 Lymph % (Auto) 14.7 L [place] % (Auto) 12.0 H Eos % (Auto) 0.1 Baso % (Auto) 0.3 Lymph # (Auto) 1.6 [place] # (Auto) 1.3 H Eos # (Auto) 0.0 Baso # (Auto) 0.0 Abs Immat Gran (auto) 0.04 H Absolute Neuts (auto) 8.0 Absolute Nucleated RBC 0.000 Nucleated RBC % (auto) 0.0 Hold Blue Top SEE NOTE Anion Gap 14 Estim Creat Clear Calc 148.6 Estimated GFR > 60 Random Glucose 154 H Lactic Acid 1.3 Calcium 9.4 Total Bilirubin 0.7 AST 46 H ALT 57 H Alkaline Phosphatase 87 B-Natriuretic Peptide < 10 Total Protein 7.7 Albumin 4.0 Urine Color Yellow Urine Appearance Clear Urine pH 8.0 Ur Specific [place] 1.015 Urine Protein 100 (2+) H Urine Glucose (UA) Negative Urine Ketones 15 Urine Blood Trace H Urine Nitrite Negative Ur Leukocyte Esterase Negative Urine RBC 6-10 H Urine WBC 0-5 Ur Squamous Epith Cells 0-2 Urine Bacteria None Seen Hyaline Casts 0-2 Influenza Type A (PCR) NEGATIVE Influenza Type B (PCR) NEGATIVE RSV RNA Qual (PCR) NEGATIVE SARS-CoV-2 RNA (RT-PCR) NEGATIVE Imaging Radiologist's Impressions: Impressions Chest X-Ray 10/24/24 07:28 IMPRESSION: Right-sided pleural effusion, moderate to large volume with associated airspace disease and mild interstitial lung edema versus multifocal pneumonia. Electronically signed by: Lorenzo Zabala MD 10/24/2024 07:58 AM EDT RP Venous Duplex 10/24/24 10:50 IMPRESSION: No acute deep venous thrombosis involving the right upper extremity. Negative for DVT.. 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 Multifocal pneumonia with right-sided pleural effusion -cefepime/vancomycin (1) -CTA chest to rule out loculated process -DuoNebs q.4 hours while awake as needed -titrate O2 to maintain sats greater than equal to 92% 2. Hypertension -elevated today acutely but otherwise good control -continue outpatient therapies -adjust as indicated 3. TBI with history of both seizures/pseudoseizures -stable and well compensated at [facility] -continue Keppra and Depakote at outpatient dosing -adjust as indicated Full code Lovenox Patient will require at least 2 midnights of inpatient stay going forward for IV antibiotics to treat multifocal pneumonia. We will also requires specialist consultation Quality Stroke Does the patient have a stroke diagnosis?: No VTE Prior VTE?: No VTE Risk Level:: Medical - moderate - high VTE Device Contraindication: Treatment Not Indicated VTE Drug Contraindication: N/A - Med Ordered
--- NOTE | 2024-10-24 14:31 | PHA.MEDREC ---
Pharmacy Consult ? Medication Reconciliation Pharmacy has completed the medication reconciliation. Utilized list from [facility] to complete med rec.
--- NOTE | 2024-10-24 14:58 | PC.NURSE ---
US guided IV access no longer working, multiple attempts at new access.
[2024-10-24] MEDS: Morphine Sulfate 4 MG/ML CARTRIDGE IVPUSH (15:37)
[2024-10-24] MEDS: vancomycin/NS 2,000 MG/500 ML PLAST..BAG 250 MG IV (15:37)
[2024-10-24] MEDS: Enoxaparin Sodium 40 MG/0.4 ML SYRINGE SUBCUT (15:38)
[2024-10-24] MEDS: Lactated Ringers 1,000 ML 125 ML IVCONT (17:54)
[2024-10-24] MEDS: Divalproex Sodium 500 MG TABLET.DR PO (20:19)
[2024-10-24] MEDS: Atorvastatin Calcium 40 MG TABLET PO (20:19)
[2024-10-24] MEDS: levETIRAcetam 1,000 MG TABLET 1000 MG PO (20:19)
[2024-10-24] MEDS: Melatonin 3 MG TABLET 6 MG PO (20:19)
[2024-10-24] MEDS: OLANZapine 5 MG TABLET PO (20:19)
[2024-10-24] MEDS: Acetaminophen 325 MG TABLET 650 MG PO (20:20)
[2024-10-24] MEDS: Divalproex Sodium 250 MG TABLET.DR PO (20:20)
[2024-10-24] MEDS: 0.9 % Sodium Chloride Flush 3 ML SYRINGE IVFLUSH (20:22)
[2024-10-25] VITALS (7 sets, daily range): BP systolic 127–154; BP diastolic 60–103; PULSE 98–106; RESP 16–18; TEMP 36.2–36.7; O2SAT 95–99
[2024-10-25] MEDS: Benzonatate 100 MG CAPSULE PO ×2 (01:27→20:37)
[2024-10-25] MEDS: Lactated Ringers 1,000 ML 125 ML IVCONT ×3 (01:29→20:44)
[2024-10-25] MEDS: Acetaminophen 325 MG TABLET 650 MG PO ×2 (03:40→18:31)
[2024-10-25] MEDS: Divalproex Sodium 250 MG TABLET.DR PO ×2 (07:48→20:37)
[2024-10-25] MEDS: Escitalopram Oxalate 5 MG TABLET PO (07:48)
[2024-10-25] MEDS: 0.9 % Sodium Chloride Flush 3 ML SYRINGE IVFLUSH ×2 (07:48→20:42)
[2024-10-25] MEDS: Multivitamin TABLET 1 TAB PO (07:48)
[2024-10-25] MEDS: levETIRAcetam 1,000 MG TABLET 1000 MG PO ×2 (07:48→20:37)
[2024-10-25] MEDS: Divalproex Sodium 500 MG TABLET.DR PO ×2 (07:48→20:37)
[2024-10-25 10:18] LABS: MANUAL DIFF FLAG NO
[2024-10-25 10:28] LABS: Basophils Percent Auto 0.2 % (0-2); Eosinophils Percent Auto 0.1 % (0-4); Hematocrit 44.1 % (42.0-52.0); Hemoglobin 13.9 g/dl (14.0-18.0); Imm Gran Abs Auto 0.06 X10*3/uL (0.00-0.03); Imm Gran Pct Auto 0.6 % (0.0-0.4); Lymphocytes Absolute Auto 2.1 X10*3/uL (1.2-4.9); Lymphocytes Percent Auto 22.2 % (20-40); Mean Corpuscular HGB Conc 31.5 g/dl (31.0-36.0); Mean Corpuscular Hemoglobin 29.3 pg (27.0-33.0); Mean Corpuscular Volume 92.8 fL (80.0-98.0); Mean Platelet Volume 9.5 fL (9.4-12.4); Monocytes Percent Auto 10.3 % (2-11); NRBC Pct Auto 0.3 /100WBC (0.0-0.2); Neutrophils Absolute Auto 6.4 x10*3/uL (2.0-8.3); Neutrophils Percent Auto 66.6 % (45-73); Platelet Count 158 X10*3/uL (160-400); Red Blood Count 4.75 X10*6/uL (4.60-5.80); Red Cell Distribution Width 14.1 % (11.0-16.0); White Blood Count 9.5 X10*3/uL (4.8-10.8)
[2024-10-25] MEDS: levoFLOXacin/D5W 750 MG/150 ML PIGGYBACK 100 MG IV (10:45)
[2024-10-25 10:55] LABS: Procalcitonin 0.26 ng/mL
[2024-10-25 11:41] LABS: Alanine Aminotransferase 45 U/L (0-40); Albumin Level 3.4 g/dL (3.5-5.0); Alkaline Phosphatase 73 U/L (39-117); Anion Gap 12 (12-20); Aspartate Amino Transferase 37 U/L (5-37); Bilirubin Total 0.4 mg/dL (0.0-1.0); Blood Urea Nitrogen 6 mg/dL (9-16); Calcium 9.6 mg/dL (8.4-10.2); Carbon Dioxide 35 mmol/L (22-29); Chloride 98 mmol/L (96-108); Creatinine Clr Calc Pharmacy 178.8; Estimated Glomerular Filt Rate > 60; Glucose Random 113 mg/dL (60-115); Potassium 4.2 mmol/L (3.3-5.1); Sodium 141 mmol/L (135-145)
--- NOTE | 2024-10-25 12:39 | MHC.CM.PN ---
This CM called to speak with pts guardian voice Yanivmail left awaiting return call. 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 Updated guardianship paperwork requested from [facility].
[2024-10-25 12:46] LABS: MRSA Nasal PCR NEGATIVE (Negative); SA Nasal PCR POSITIVE (Negative)
--- NOTE | 2024-10-25 14:14 | HO.PM.IMPN ---
Subjective Subjective Date of Service: 10/25/24 Interval History: fever resolved endorses cough Review of Systems Review of Systems: Yes all other systems are reviewed and are negative Physical Exam Vital Signs: Vital Signs: Last Vital Signs Temp 97.9 F 10/25/24 11:41 Pulse 100 10/25/24 11:41 Resp 17 10/25/24 11:41 BP 130/75 10/25/24 11:41 Pulse Ox 98 10/25/24 11:41 O2 Del Method Nasal Cannula 10/25/24 11:41 O2 Flow Rate 2 10/25/24 11:41 Oxygen Flow Rate 2 10/24/24 07:11 BMI result Body Mass Index 32.7 Gen: in no acute distress HEENT: sclera anicteric, moist mucus membranes Neck: supple Lungs: diminished R base Heart: regular rate and rhythm, no murmurs Abd: soft, non-tender, non-distended Ext: no edema Skin: warm/well-perfused Neuro: alert and oriented x3, no focal findings Psych: appropriate affect Objective Data Active Medications Acetaminophen (Acetaminophen 325 Mg Tablet) 650 mg PO Q6H PRN PRN Reason: Pain, Mild 1-3,fever,headache Last Admin: 10/25/24 03:40 Dose: 650 mg Documented By: SILVIANO Albuterol Sulfate (Albuterol Sulfate 90 Mcg 8 Gm Inhaler) 2 puff INHALE Q6H PRN PRN Reason: Wheezing Atorvastatin Calcium (Atorvastatin Calcium 40 Mg Tablet) 40 mg PO BEDTIME LG Last Admin: 10/24/24 20:19 Dose: 40 mg Documented By: SILVIANO Benzonatate (Benzonatate 100 Mg Capsule) 100 mg PO TID PRN PRN Reason: Cough Last Admin: 10/25/24 01:27 Dose: 100 mg Documented By: SILVIANO Bisacodyl (Bisacodyl 10 Mg Supp.Rect) 10 mg MS DAILY PRN PRN Reason: Constipation Calcium Carbonate (Calcium Carbonate 750 Mg Tab.Chew) 750 mg PO Q4H PRN PRN Reason: Heartburn Cyclobenzaprine HCl (Cyclobenzaprine Hcl 10 Mg Tablet) 10 mg PO Q8H PRN PRN Reason: Pain in back Diphenhydramine HCl (Diphenhydramine Hcl 25 Mg Capsule) 25 mg PO BEDTIME PRN PRN Reason: Insomnia Divalproex Sodium (Divalproex Sodium 250 Mg Tablet.) 250 mg PO BID [facility] Last Admin: 10/25/24 07:48 Dose: 250 mg Documented By: CAMILA Divalproex Sodium (Divalproex Sodium 500 Mg Tablet.) 500 mg PO BID [facility] Last Admin: 10/25/24 07:48 Dose: 500 mg Documented By: CAMILA Enoxaparin Sodium (Enoxaparin Sodium 40 Mg/0.4 Ml Syringe) 40 mg SUBCUT Q24H [facility] Last Admin: 10/24/24 15:38 Dose: 40 mg Documented By: TIMOTHY Escitalopram Oxalate (Escitalopram Oxalate 5 Mg Tablet) 5 mg PO DAILY [facility] Last Admin: 10/25/24 07:48 Dose: 5 mg Documented By: CAMILA Guaifenesin (Guaifenesin 200 Mg/10 Ml 10 Ml Liquid) 15 ml PO Q6H PRN PRN Reason: Cough Hydroxyzine HCl (Hydroxyzine Hcl 50 Mg/Ml Vial) 50 mg IM Q4H PRN PRN Reason: Seizures Lactated Ringer's (Lr) 1,000 mls @ 125 mls/hr IVCONT .Q8H [facility] Last Infusion: 10/25/24 10:54 Dose: 0 mls/hr Documented By: CAMILA Levofloxacin (Levaquin) 750 mg in 150 mls @ 100 mls/hr IV Q24H [facility] Last Infusion: 10/25/24 12:17 Dose: Infused Documented By: CAMILA Levetiracetam (Levetiracetam 1,000 Mg Tablet) 1,000 mg PO BID [facility] Last Admin: 10/25/24 07:48 Dose: 1,000 mg Documented By: CAMILA Loperamide HCl (Loperamide Hcl 2 Mg Capsule) 2 mg PO Q2H PRN PRN Reason: Diarrhea Magnesium Hydroxide (Milk Of Magnesia 30 Ml Oral.Susp) 30 ml PO DAILY PRN PRN Reason: Constipation Melatonin (Melatonin 3 Mg Tablet) 6 mg PO BEDTIME PRN PRN Reason: Insomnia Last Admin: 10/24/24 20:19 Dose: 6 mg Documented By: SILVIANO Multivitamins/Vitamin C (Multivitamin Tablet) 1 tab PO DAILY [facility] Last Admin: 10/25/24 07:48 Dose: 1 tab Documented By: CAMILA Olanzapine (Olanzapine 5 Mg Tablet) 5 mg PO BEDTIME [facility] Last Admin: 10/24/24 20:19 Dose: 5 mg Documented By: SILVIANO Ondansetron HCl (Ondansetron Hcl 4 Mg/2 Ml Vial) 4 mg IVPUSH Q8H PRN PRN Reason: Nausea and Vomiting Senna (Sennosides 8.6 Mg Tablet) 8.6 mg PO DAILY PRN PRN Reason: Constipation Sodium Biphosphate/Sodium Phosphate (Sodium Phosphate,[place]-Dibasic 133 Ml Enema) 118 ml MS DAILY PRN PRN Reason: Constipation Sodium Chloride (0.9 % Sodium Chloride Flush 3 Ml Syringe) 3 ml IVFLUSH QSHIFT [facility] Last Admin: 10/25/24 07:48 Dose: 3 ml Documented By: CAMILA Labs 10/25/24 10:13 10/25/24 10:13 Labs: Laboratory Results - last 24 hr 10/25/24 10/25/24 10/25/24 10:13 10:53 11:01 MCV 92.8 MCH 29.3 MCHC 31.5 RDW 14.1 Plt Count 158 L MPV 9.5 Immature Gran % (Auto) 0.6 H Neut % (Auto) 66.6 Lymph % (Auto) 22.2 [place] % (Auto) 10.3 Eos % (Auto) 0.1 Baso % (Auto) 0.2 Lymph # (Auto) 2.1 [place] # (Auto) 1.0 Eos # (Auto) 0.0 Baso # (Auto) 0.0 Abs Immat Gran (auto) 0.06 H Absolute Neuts (auto) 6.4 Absolute Nucleated RBC 0.030 H Nucleated RBC % (auto) 0.3 H Anion Gap 12 Cancelled Estim Creat Clear Calc 178.8 Cancelled Estimated GFR > 60 Cancelled Random Glucose 113 Cancelled Calcium 9.6 Cancelled Total Bilirubin 0.4 Cancelled AST 37 Cancelled ALT 45 H Cancelled Alkaline Phosphatase 73 Cancelled Total Protein 7.0 Cancelled Albumin 3.4 L Cancelled Procalcitonin 0.26 Nasal Screen MRSA (PCR) NEGATIVE Nasal S. aureus Screen POSITIVE A Nasal MRSA/S.aureus Interp SEE NOTE CT chest 10/24/24 No pleural effusion. Similar large opacity of the right lower lobe and middle lobe. There are additional patchy opacities of the bilateral upper lobes. Pneumonia cannot be excluded. Hepatic steatosis. Microbiology Microbiology Results: Microbiology 10/24/24 08:44 Blood Culture - Preliminary Blood - Venous No growth after 24 hours. 10/24/24 08:35 Blood Culture - Preliminary Blood - Venous No growth after 24 hours. Assessment and Plan (1) Supplemental oxygen dependent: Status: Acute (2) Pneumonia: Status: Acute Plan d2 for 39yo M long-term resident of [facility] with TBI, seizures, PNES, hepatomegaly, PTSD, GERD, chronic hypoxic resp failure on 2L O2, mood disorder found to have multifocal PNA multifocal PNA - no effusion on CT. Got vancomycin + cefepime in ED. Hx anaphylaxis with amoxicillin. For now will give levofloxacin 10/25- but if failes to improved consider anti-MRSA coverage as MRSA swab is positive; check urinary antigens for Legionella and pneumococcus. Trend PCT. Follow BCx. HTN - continue seizures PNES - continue divalproex, levetiracetam HLD - continue statin mood disorder - continue escitalopram, olanazpine VTE ppx - enoxaparin dispo - eventual return to [facility] In my clinical judgment, the patient requires continued inpatient hospitalization for the following reasons: IV ABX Total time managing care of this patient today: 35 minutes. Quality Stroke Does the patient have a stroke diagnosis?: No VTE Prior VTE?: No VTE Risk Level:: Medical - moderate - high VTE Device Contraindication: Treatment Not Indicated VTE Drug Contraindication: N/A - Med Ordered
[2024-10-25] MEDS: Enoxaparin Sodium 40 MG/0.4 ML SYRINGE SUBCUT (15:02)
[2024-10-25] MEDS: guaiFENesin 200 MG/10 ML 10 ML LIQUID 15 ML PO (18:36)
[2024-10-25 18:46] LABS: Glucose, Whole Blood 69 mg/dL (60-115)
[2024-10-25] MEDS: diazePAM 10 MG/2 ML CARTRIDGE IVPUSH (18:46)
--- NOTE | 2024-10-25 18:49 | P.EN_ITS ---
Event Note Date of Service: 10/25/24 Event Note: SENIOR DIRECTOR for seizure activity, broke with valium 10mg, now postictal, vitals stable Time Spent With Patient Time: Total time managing care of this patient today ____ minutes.
--- NOTE | 2024-10-25 19:18 | PC.NURSE ---
1830 this RN was in the patient room administering PRN Tylenol and cough medicine for headache and persistent cough. Patient was sitting on the side of the bed eating dinner when he stated I think I might have a seizure this RN was helping patient lay back down in bed when patient started seizing at 184 patient assisted back into the bed lying on his R side and rapid response called. Vitals signs taken and all within normal limits per MD administer 10mg of diazepam at 184
--- NOTE | 2024-10-25 19:23 | PC.NURSE ---
1830 this RN was in the patient room administering PRN Tylenol and cough medicine for headache and persistent cough. Patient was sitting on the side of the bed eating dinner when he stated I think I might have a seizure this RN was helping patient lay back down in bed when patient started seizing at 1843 patient assisted back into the bed lying on his R side and rapid response called. Vitals signs taken and all within normal limits per MD administer 10mg of diazepam, medication administered at 1846. Patient's vitals continue to be within normal limits and currently in postictal state. Camera placed in room and seizure pad in place continuous pulse ox in place.
--- NOTE | 2024-10-25 19:30 | PC.NURSE ---
patient rang call jakob stating to this fiction and nonfiction prose writer I'm going to have another seizure patient began shaking his left arm and shut his eyes, when this fiction and nonfiction prose writer gave light tactile pressure to left shoulder, patient responded by making eye contact. patient then stated can i take a shower? , no PRN seizure medication given, will continue to monitor for signs and symptoms of an active seizure
[2024-10-25] MEDS: diphenhydrAMINE HCL 25 MG CAPSULE PO (20:37)
[2024-10-25] MEDS: OLANZapine 5 MG TABLET PO (20:37)
[2024-10-25] MEDS: Melatonin 3 MG TABLET 6 MG PO (20:37)
[2024-10-25] MEDS: Atorvastatin Calcium 40 MG TABLET PO (20:37)
[2024-10-26] MEDS: Acetaminophen 325 MG TABLET 650 MG PO ×2 (00:19→18:14)
[2024-10-26 03:39] VITALS: BP 140/67; PULSE 89; RESP 20; TEMP 36.3; O2SAT 97
[2024-10-26] MEDS: Lactated Ringers 1,000 ML 125 ML IVCONT ×2 (04:44→12:02)
[2024-10-26 07:38] VITALS: BP 132/8; PULSE 89; RESP 18; TEMP 36.1; O2SAT 95
[2024-10-26] MEDS: Escitalopram Oxalate 5 MG TABLET PO (09:21)
[2024-10-26] MEDS: levETIRAcetam 1,000 MG TABLET 1000 MG PO ×2 (09:21→20:17)
[2024-10-26] MEDS: Divalproex Sodium 500 MG TABLET.DR PO ×2 (09:21→20:17)
[2024-10-26] MEDS: levoFLOXacin/D5W 750 MG/150 ML PIGGYBACK 100 MG IV (09:21)
[2024-10-26] MEDS: Multivitamin TABLET 1 TAB PO (09:21)
[2024-10-26] MEDS: Divalproex Sodium 250 MG TABLET.DR PO ×2 (09:21→20:17)
--- NOTE | 2024-10-26 10:38 | MHC.CM.PN ---
Per MD rounds no dc today. Patient dx pna, may be ready to return to [facility] over the weekend. DP [facility] via BLS.
[2024-10-26 10:45] LABS: Basophils Percent Auto 0.4 % (0-2); Eosinophils Percent Auto 0.1 % (0-4); Hematocrit 47.5 % (42.0-52.0); Hemoglobin 15.3 g/dl (14.0-18.0); Imm Gran Abs Auto 0.09 X10*3/uL (0.00-0.03); Imm Gran Pct Auto 1.3 % (0.0-0.4); Lymphocytes Absolute Auto 1.9 X10*3/uL (1.2-4.9); Lymphocytes Percent Auto 26.1 % (20-40); Mean Corpuscular HGB Conc 32.2 g/dl (31.0-36.0); Mean Corpuscular Hemoglobin 29.4 pg (27.0-33.0); Mean Corpuscular Volume 91.2 fL (80.0-98.0); Mean Platelet Volume 9.8 fL (9.4-12.4); Monocytes Absolute Auto 0.3 X10*3/uL (0.1-1.2); Monocytes Percent Auto 4.5 % (2-11); NRBC Pct Auto 0.3 /100WBC (0.0-0.2); Neutrophils Absolute Auto 4.9 x10*3/uL (2.0-8.3); Neutrophils Percent Auto 67.6 % (45-73); Platelet Count 201 X10*3/uL (160-400); Red Blood Count 5.21 X10*6/uL (4.60-5.80); Red Cell Distribution Width 13.6 % (11.0-16.0); White Blood Count 7.2 X10*3/uL (4.8-10.8)
--- NOTE | 2024-10-26 11:08 | P.PNIM_ITS ---
Subjective Subjective Date of Service: 10/26/24 Interval History: Clinically improved since admission. O2 requirement stable Review of Systems Denies chest pain Admits to shortness of breath worse with exertion Admits to right arm pain that had resolved on arrival to ER Denies nausea vomiting diarrhea Denies fever chills Physical Exam 2 Vital Signs: Vital Signs: Last Vital Signs Temp 97.0 F 10/26/24 07:38 Pulse 89 10/26/24 07:38 Resp 18 10/26/24 07:38 BP 132/8 L 10/26/24 07:38 Pulse Ox 95 10/26/24 07:38 O2 Del Method Nasal Cannula 10/26/24 07:38 O2 Flow Rate 3 10/26/24 07:38 Oxygen Flow Rate 2 10/24/24 07:11 BMI result Body Mass Index 32.7 Const: Other: Awake alert ill-appearing Resp: Other: Diminished right base scattered wheezes throughout Cardio: Other: No S4; positive S1-S2; no S3 murmurs rubs or gallops GI: Other: Soft nontender nondistended normoactive bowel sounds Extrem: Other: No edema bilaterally Objective Data Active Medications Acetaminophen (Acetaminophen 325 Mg Tablet) 650 mg PO Q6H PRN PRN Reason: Pain, Mild 1-3,fever,headache Last Admin: 10/26/24 00:19 Dose: 650 mg Documented By: SILVIANO Albuterol Sulfate (Albuterol Sulfate 90 Mcg 8 Gm Inhaler) 2 puff INHALE Q6H PRN PRN Reason: Wheezing Atorvastatin Calcium (Atorvastatin Calcium 40 Mg Tablet) 40 mg PO BEDTIME LG Last Admin: 10/25/24 20:37 Dose: 40 mg Documented By: SILVIANO Benzonatate (Benzonatate 100 Mg Capsule) 100 mg PO TID PRN PRN Reason: Cough Last Admin: 10/25/24 20:37 Dose: 100 mg Documented By: SILVIANO Bisacodyl (Bisacodyl 10 Mg Supp.Rect) 10 mg GA DAILY PRN PRN Reason: Constipation Calcium Carbonate (Calcium Carbonate 750 Mg Tab.Chew) 750 mg PO Q4H PRN PRN Reason: Heartburn Cyclobenzaprine HCl (Cyclobenzaprine Hcl 10 Mg Tablet) 10 mg PO Q8H PRN PRN Reason: Pain in back Diazepam (Diazepam 10 Mg/2 Ml Cartridge) 5 mg IVPUSH Q4H PRN PRN Reason: Seizures Diphenhydramine HCl (Diphenhydramine Hcl 25 Mg Capsule) 25 mg PO BEDTIME PRN PRN Reason: Insomnia Last Admin: 10/25/24 20:37 Dose: 25 mg Documented By: SILVIANO Divalproex Sodium (Divalproex Sodium 250 Mg Tablet.) 250 mg PO BID [facility] Last Admin: 10/26/24 09:21 Dose: 250 mg Documented By: ISAC Divalproex Sodium (Divalproex Sodium 500 Mg Tablet.) 500 mg PO BID [facility] Last Admin: 10/26/24 09:21 Dose: 500 mg Documented By: ISAC Enoxaparin Sodium (Enoxaparin Sodium 40 Mg/0.4 Ml Syringe) 40 mg SUBCUT Q24H [facility] Last Admin: 10/25/24 15:02 Dose: 40 mg Documented By: CAMILA Escitalopram Oxalate (Escitalopram Oxalate 5 Mg Tablet) 5 mg PO DAILY [facility] Last Admin: 10/26/24 09:21 Dose: 5 mg Documented By: ISAC Guaifenesin (Guaifenesin 200 Mg/10 Ml 10 Ml Liquid) 15 ml PO Q6H PRN PRN Reason: Cough Last Admin: 10/25/24 18:36 Dose: 15 ml Documented By: CAMILA Hydroxyzine HCl (Hydroxyzine Hcl 50 Mg/Ml Vial) 50 mg IM Q4H PRN PRN Reason: Seizures Lactated Ringer's (Lr) 1,000 mls @ 125 mls/hr IVCONT .Q8H [facility] Last Admin: 10/26/24 04:44 Dose: 125 mls/hr Documented By: SILVIANO Levofloxacin (Levaquin) 750 mg in 150 mls @ 100 mls/hr IV Q24H [facility] Last Infusion: 10/26/24 11:06 Dose: Infused Documented By: ISAC Levetiracetam (Levetiracetam 1,000 Mg Tablet) 1,000 mg PO BID [facility] Last Admin: 10/26/24 09:21 Dose: 1,000 mg Documented By: ISAC Loperamide HCl (Loperamide Hcl 2 Mg Capsule) 2 mg PO Q2H PRN PRN Reason: Diarrhea Magnesium Hydroxide (Milk Of Magnesia 30 Ml Oral.Susp) 30 ml PO DAILY PRN PRN Reason: Constipation Melatonin (Melatonin 3 Mg Tablet) 6 mg PO BEDTIME PRN PRN Reason: Insomnia Last Admin: 10/25/24 20:37 Dose: 6 mg Documented By: SILVIANO Multivitamins/Vitamin C (Multivitamin Tablet) 1 tab PO DAILY [facility] Last Admin: 10/26/24 09:21 Dose: 1 tab Documented By: ISAC Olanzapine (Olanzapine 5 Mg Tablet) 5 mg PO BEDTIME [facility] Last Admin: 10/25/24 20:37 Dose: 5 mg Documented By: SILVIANO Ondansetron HCl (Ondansetron Hcl 4 Mg/2 Ml Vial) 4 mg IVPUSH Q8H PRN PRN Reason: Nausea and Vomiting Senna (Sennosides 8.6 Mg Tablet) 8.6 mg PO DAILY PRN PRN Reason: Constipation Sodium Biphosphate/Sodium Phosphate (Sodium Phosphate,[place]-Dibasic 133 Ml Enema) 118 ml GA DAILY PRN PRN Reason: Constipation Sodium Chloride (0.9 % Sodium Chloride Flush 3 Ml Syringe) 3 ml IVFLUSH QSHIFT [facility] Last Admin: 10/26/24 07:12 Dose: Not Given Documented By: ISAC Non-Admin Reason: Previously Administered Labs 10/26/24 10:28 10/25/24 10:13 Labs: Laboratory Results - last 24 hr 10/25/24 10/25/24 10/25/24 10:13 10:53 11:01 MCV MCH MCHC RDW Plt Count MPV Immature Gran % (Auto) Neut % (Auto) Lymph % (Auto) [place] % (Auto) Eos % (Auto) Baso % (Auto) Lymph # (Auto) [place] # (Auto) Eos # (Auto) Baso # (Auto) Abs Immat Gran (auto) Absolute Neuts (auto) Absolute Nucleated RBC Nucleated RBC % (auto) Anion Gap 12 Cancelled Estim Creat Clear Calc 178.8 Cancelled Estimated GFR > 60 Cancelled POC Glucose Random Glucose 113 Cancelled Calcium 9.6 Cancelled Total Bilirubin 0.4 Cancelled AST 37 Cancelled ALT 45 H Cancelled Alkaline Phosphatase 73 Cancelled Total Protein 7.0 Cancelled Albumin 3.4 L Cancelled Nasal Screen MRSA (PCR) NEGATIVE Nasal S. aureus Screen POSITIVE A Nasal MRSA/S.aureus Interp SEE NOTE 10/25/24 10/26/24 18:42 10:28 MCV 91.2 MCH 29.4 MCHC 32.2 RDW 13.6 Plt Count 201 D MPV 9.8 Immature Gran % (Auto) 1.3 H Neut % (Auto) 67.6 Lymph % (Auto) 26.1 [place] % (Auto) 4.5 Eos % (Auto) 0.1 Baso % (Auto) 0.4 Lymph # (Auto) 1.9 [place] # (Auto) 0.3 Eos # (Auto) 0.0 Baso # (Auto) 0.0 Abs Immat Gran (auto) 0.09 H Absolute Neuts (auto) 4.9 Absolute Nucleated RBC 0.020 H Nucleated RBC % (auto) 0.3 H Anion Gap Estim Creat Clear Calc Estimated GFR POC Glucose 69 Random Glucose Calcium Total Bilirubin AST ALT Alkaline Phosphatase Total Protein Albumin Nasal Screen MRSA (PCR) Nasal S. aureus Screen Nasal MRSA/S.aureus Interp Microbiology Microbiology Results: Microbiology 10/24/24 08:44 Blood Culture - Preliminary Blood - Venous No growth after 48 hours. 10/24/24 08:35 Blood Culture - Preliminary Blood - Venous No growth after 48 hours. 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 Multifocal pneumonia with right-sided pleural effusion -cefepime/vancomycin (2) -DuoNebs q.4 hours while awake as needed -titrate O2 to maintain sats greater than equal to 92% 2. Hypertension -elevated today acutely but otherwise good control -continue outpatient therapies -adjust as indicated 3. TBI with history of both seizures/pseudoseizures -stable and well compensated at [facility] -continue Keppra and Depakote at outpatient dosing -adjust as indicated Full code Lovenox Patient will require at least 2 midnights of inpatient stay going forward for IV antibiotics to treat multifocal pneumonia. We will also requires specialist consultation Quality Stroke Does the patient have a stroke diagnosis?: No VTE Prior VTE?: No VTE Risk Level:: Medical - moderate - high VTE Device Contraindication: Treatment Not Indicated VTE Drug Contraindication: N/A - Med Ordered
[2024-10-26 11:25] VITALS: BP 140/83; PULSE 105; RESP 18; TEMP 37; O2SAT 95
[2024-10-26 11:48] LABS: Alanine Aminotransferase 52 U/L (0-40); Albumin Level 3.5 g/dL (3.5-5.0); Alkaline Phosphatase 87 U/L (39-117); Anion Gap 10 (12-20); Aspartate Amino Transferase 47 U/L (5-37); Bilirubin Total 0.4 mg/dL (0.0-1.0); Blood Urea Nitrogen 7 mg/dL (9-16); Calcium 9.9 mg/dL (8.4-10.2); Carbon Dioxide 36 mmol/L (22-29); Chloride 97 mmol/L (96-108); Creatinine Clr Calc Pharmacy 160.6; Estimated Glomerular Filt Rate > 60; Glucose Random 242 mg/dL (60-115); Potassium 3.8 mmol/L (3.3-5.1); Sodium 139 mmol/L (135-145); Total Protein 7.2 g/dL (6.5-8.0)
[2024-10-26] MEDS: Enoxaparin Sodium 40 MG/0.4 ML SYRINGE SUBCUT (14:22)
[2024-10-26 15:44] VITALS: BP 142/79; PULSE 100; RESP 16; TEMP 36.4; O2SAT 95
[2024-10-26] MEDS: Cyclobenzaprine HCl 10 MG TABLET PO (18:14)
[2024-10-26 19:07] VITALS: BP 119/74; PULSE 109; RESP 20; TEMP 36.6; O2SAT 99
[2024-10-26] MEDS: Atorvastatin Calcium 40 MG TABLET PO (20:17)
[2024-10-26] MEDS: Melatonin 3 MG TABLET 6 MG PO (20:17)
[2024-10-26] MEDS: OLANZapine 5 MG TABLET PO (20:17)
[2024-10-26] MEDS: 0.9 % Sodium Chloride Flush 3 ML SYRINGE IVFLUSH (20:19)
[2024-10-26] MEDS: Benzonatate 100 MG CAPSULE PO (20:23)
[2024-10-26 23:33] VITALS: BP 134/74; PULSE 91; RESP 18; TEMP 36.3; O2SAT 100
[2024-10-27 03:40] VITALS: BP 141/73; PULSE 96; RESP 18; TEMP 36; O2SAT 100
[2024-10-27] MEDS: Acetaminophen 325 MG TABLET 650 MG PO ×2 (05:13→14:06)
[2024-10-27 07:47] LABS: Basophils Percent Auto 0.3 % (0-2); Eosinophils Percent Auto 0.3 % (0-4); Hematocrit 42.8 % (42.0-52.0); Hemoglobin 13.8 g/dl (14.0-18.0); Imm Gran Abs Auto 0.07 X10*3/uL (0.00-0.03); Imm Gran Pct Auto 1.2 % (0.0-0.4); Lymphocytes Absolute Auto 1.9 X10*3/uL (1.2-4.9); MANUAL DIFF FLAG SCAN; Mean Corpuscular HGB Conc 32.2 g/dl (31.0-36.0); Mean Corpuscular Hemoglobin 29.6 pg (27.0-33.0); Mean Corpuscular Volume 91.6 fL (80.0-98.0); Monocytes Absolute Auto 0.7 X10*3/uL (0.1-1.2); Monocytes Percent Auto 12.6 % (2-11); NRBC Pct Auto 0.3 /100WBC (0.0-0.2); Neutrophils Percent Auto 52.6 % (45-73); Platelet Count 179 X10*3/uL (160-400); Red Blood Count 4.67 X10*6/uL (4.60-5.80); Red Cell Distribution Width 13.7 % (11.0-16.0); SCAN SMEAR FLAG 1; White Blood Count 5.7 X10*3/uL (4.8-10.8)
[2024-10-27 08:00] VITALS: BP 128/73; PULSE 98; RESP 14; TEMP 36.7; O2SAT 99
--- NOTE | 2024-10-27 08:11 | P.PNIM_ITS ---
Subjective Subjective Date of Service: 10/27/24 Interval History: Seen in follow-up for multifocal pneumonia with right-sided pleural effusion Interval history: He reports feeling slightly better. Still with cough and shortness of breath, both at rest and with exertion. Remains afebrile. No lightheadedness, palpitations, chest pain or wheezing. Review of Systems Review of Systems: Yes all other systems are reviewed and are negative Physical Exam 2 Vital Signs: Vital Signs: Last Vital Signs Temp 96.8 F 10/27/24 03:40 Pulse 96 10/27/24 03:40 Resp 18 10/27/24 03:40 BP 141/73 H 10/27/24 03:40 Pulse Ox 100 10/27/24 03:40 O2 Del Method Nasal Cannula 10/27/24 03:40 O2 Flow Rate 3 10/27/24 03:40 Oxygen Flow Rate 2 10/24/24 07:11 BMI result Body Mass Index 32.7 Constitutional - Awake and Alert, No apparent distress Eyes - PERRLA, EOMI Cardiovascular - S1S2, RRR, No edema Respiratory - Normal lung expansion, Normal respiratory effort, No respiratory distress, diminished R lung, scattered wheezes Gastrointestinal - NT / ND; +BS; No rebound or guarding Extremities - no calf tenderness bilaterally, no swelling Skin - Warm/Dry Neurological - Alert & oriented x3 Psychological - Appropriate affect Objective Data Active Medications Acetaminophen (Acetaminophen 325 Mg Tablet) 650 mg PO Q6H PRN PRN Reason: Pain, Mild 1-3,fever,headache Last Admin: 10/27/24 05:13 Dose: 650 mg Documented By: ROQUE Albuterol Sulfate (Albuterol Sulfate 90 Mcg 8 Gm Inhaler) 2 puff INHALE Q6H PRN PRN Reason: Wheezing Atorvastatin Calcium (Atorvastatin Calcium 40 Mg Tablet) 40 mg PO BEDTIME LG Last Admin: 10/26/24 20:17 Dose: 40 mg Documented By: ROQUE Benzonatate (Benzonatate 100 Mg Capsule) 100 mg PO TID PRN PRN Reason: Cough Last Admin: 10/26/24 20:23 Dose: 100 mg Documented By: ROQUE Bisacodyl (Bisacodyl 10 Mg Supp.Rect) 10 mg LA DAILY PRN PRN Reason: Constipation Calcium Carbonate (Calcium Carbonate 750 Mg Tab.Chew) 750 mg PO Q4H PRN PRN Reason: Heartburn Cyclobenzaprine HCl (Cyclobenzaprine Hcl 10 Mg Tablet) 10 mg PO Q8H PRN PRN Reason: Pain in back Last Admin: 10/26/24 18:14 Dose: 10 mg Documented By: ISAC Diazepam (Diazepam 10 Mg/2 Ml Cartridge) 5 mg IVPUSH Q4H PRN PRN Reason: Seizures Diphenhydramine HCl (Diphenhydramine Hcl 25 Mg Capsule) 25 mg PO BEDTIME PRN PRN Reason: Insomnia Last Admin: 10/25/24 20:37 Dose: 25 mg Documented By: SILVIANO Divalproex Sodium (Divalproex Sodium 250 Mg Tablet.) 250 mg PO BID [facility] Last Admin: 10/26/24 20:17 Dose: 250 mg Documented By: ROQUE Divalproex Sodium (Divalproex Sodium 500 Mg Tablet.) 500 mg PO BID [facility] Last Admin: 10/26/24 20:17 Dose: 500 mg Documented By: ROQUE Enoxaparin Sodium (Enoxaparin Sodium 40 Mg/0.4 Ml Syringe) 40 mg SUBCUT Q24H [facility] Last Admin: 10/26/24 14:22 Dose: 40 mg Documented By: ISAC Escitalopram Oxalate (Escitalopram Oxalate 5 Mg Tablet) 5 mg PO DAILY [facility] Last Admin: 10/26/24 09:21 Dose: 5 mg Documented By: ISAC Guaifenesin (Guaifenesin 200 Mg/10 Ml 10 Ml Liquid) 15 ml PO Q6H PRN PRN Reason: Cough Last Admin: 10/25/24 18:36 Dose: 15 ml Documented By: CAMILA Hydroxyzine HCl (Hydroxyzine Hcl 50 Mg/Ml Vial) 50 mg IM Q4H PRN PRN Reason: Seizures Levofloxacin (Levaquin) 750 mg in 150 mls @ 100 mls/hr IV Q24H [facility] Last Infusion: 10/26/24 11:06 Dose: Infused Documented By: ISAC Levetiracetam (Levetiracetam 1,000 Mg Tablet) 1,000 mg PO BID [facility] Last Admin: 10/26/24 20:17 Dose: 1,000 mg Documented By: ROQUE Loperamide HCl (Loperamide Hcl 2 Mg Capsule) 2 mg PO Q2H PRN PRN Reason: Diarrhea Magnesium Hydroxide (Milk Of Magnesia 30 Ml Oral.Susp) 30 ml PO DAILY PRN PRN Reason: Constipation Melatonin (Melatonin 3 Mg Tablet) 6 mg PO BEDTIME PRN PRN Reason: Insomnia Last Admin: 10/26/24 20:17 Dose: 6 mg Documented By: ROQUE Multivitamins/Vitamin C (Multivitamin Tablet) 1 tab PO DAILY [facility] Last Admin: 10/26/24 09:21 Dose: 1 tab Documented By: ISAC Olanzapine (Olanzapine 5 Mg Tablet) 5 mg PO BEDTIME [facility] Last Admin: 10/26/24 20:17 Dose: 5 mg Documented By: ROQUE Ondansetron HCl (Ondansetron Hcl 4 Mg/2 Ml Vial) 4 mg IVPUSH Q8H PRN PRN Reason: Nausea and Vomiting Senna (Sennosides 8.6 Mg Tablet) 8.6 mg PO DAILY PRN PRN Reason: Constipation Sodium Biphosphate/Sodium Phosphate (Sodium Phosphate,[place]-Dibasic 133 Ml Enema) 118 ml LA DAILY PRN PRN Reason: Constipation Sodium Chloride (0.9 % Sodium Chloride Flush 3 Ml Syringe) 3 ml IVFLUSH QSHIFT [facility] Last Admin: 10/26/24 20:19 Dose: 3 ml Documented By: ROQUE Labs 10/27/24 07:40 10/27/24 07:40 Labs: Laboratory Results - last 24 hr 10/26/24 10/26/24 10:28 11:22 MCV 91.2 MCH 29.4 MCHC 32.2 RDW 13.6 Plt Count 201 D MPV 9.8 Immature Gran % (Auto) 1.3 H Neut % (Auto) 67.6 Lymph % (Auto) 26.1 [place] % (Auto) 4.5 Eos % (Auto) 0.1 Baso % (Auto) 0.4 Lymph # (Auto) 1.9 [place] # (Auto) 0.3 Eos # (Auto) 0.0 Baso # (Auto) 0.0 Abs Immat Gran (auto) 0.09 H Absolute Neuts (auto) 4.9 Absolute Nucleated RBC 0.020 H Nucleated RBC % (auto) 0.3 H Anion Gap 10 L Estim Creat Clear Calc 160.6 Estimated GFR > 60 Random Glucose 242 H Calcium 9.9 Total Bilirubin 0.4 AST 47 H ALT 52 H Alkaline Phosphatase 87 Total Protein 7.2 Albumin 3.5 Microbiology Microbiology Results: Microbiology 10/24/24 08:44 Blood Culture - Preliminary Blood - Venous No growth after 48 hours. 10/24/24 08:35 Blood Culture - Preliminary Blood - Venous No growth after 48 hours. 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 Change to IV Levaquin 10/25 MRSA nasal swab negative Strep pneumo antigen and Legionella antigen pending DuoNebs q.4 hours while awake as needed titrate O2 to maintain sats greater than equal to 92% Repeat chest x-ray without any improvement in pleural effusion Pulmonology consult Thoracentesis with appropriate pleural fluid studies Chronic hypoxemic respiratory failure Continue supplemental O2 Hypertension Not currently on any antihypertensive agents TBI with history of both seizures/pseudoseizures Breakthrough seizures 10/25 responsive to Valium 10 mg IV Continue Valium p.r.n. for breakthrough seizures Had been stable and well compensated at [facility] continue Keppra and Depakote at outpatient dosing Full code Lovenox Patient requires ongoing inpatient stay due to multi focal pneumonia with large right-sided pleural effusion which will require thoracentesis and expert consultation Quality Stroke Does the patient have a stroke diagnosis?: No VTE Prior VTE?: No VTE Risk Level:: Medical - moderate - high VTE Device Contraindication: Treatment Not Indicated VTE Drug Contraindication: N/A - Med Ordered
[2024-10-27 08:17] LABS: Alanine Aminotransferase 62 U/L (0-40); Albumin Level 3.3 g/dL (3.5-5.0); Alkaline Phosphatase 86 U/L (39-117); Anion Gap 13 (12-20); Aspartate Amino Transferase 67 U/L (5-37); Bilirubin Total 0.3 mg/dL (0.0-1.0); Blood Urea Nitrogen 8 mg/dL (9-16); Calcium 9.7 mg/dL (8.4-10.2); Carbon Dioxide 35 mmol/L (22-29); Chloride 98 mmol/L (96-108); Creatinine Clr Calc Pharmacy 156.1; Estimated Glomerular Filt Rate > 60; Glucose Random 109 mg/dL (60-115); Potassium 4.3 mmol/L (3.3-5.1); Sodium 142 mmol/L (135-145); Total Protein 6.6 g/dL (6.5-8.0)
[2024-10-27] MEDS: Cyclobenzaprine HCl 10 MG TABLET PO ×2 (08:41→20:09)
[2024-10-27] MEDS: Divalproex Sodium 500 MG TABLET.DR PO ×2 (08:41→20:09)
[2024-10-27] MEDS: Divalproex Sodium 250 MG TABLET.DR PO ×2 (08:41→20:15)
[2024-10-27] MEDS: Multivitamin TABLET 1 TAB PO (08:41)
[2024-10-27] MEDS: Escitalopram Oxalate 5 MG TABLET PO (08:42)
[2024-10-27] MEDS: levETIRAcetam 1,000 MG TABLET 1000 MG PO ×2 (08:42→20:09)
[2024-10-27] MEDS: Benzonatate 100 MG CAPSULE PO (08:42)
[2024-10-27] MEDS: 0.9 % Sodium Chloride Flush 3 ML SYRINGE IVFLUSH ×3 (08:43→20:15)
[2024-10-27 09:18] LABS: SLIDE REVIEW VERIFIED
[2024-10-27 11:36] VITALS: BP 111/62; PULSE 93; RESP 16; TEMP 36.4; O2SAT 99
[2024-10-27] MEDS: levoFLOXacin/D5W 750 MG/150 ML PIGGYBACK 100 MG IV (12:12)
[2024-10-27] MEDS: Enoxaparin Sodium 40 MG/0.4 ML SYRINGE SUBCUT (14:06)
[2024-10-27 15:52] VITALS: BP 137/83; PULSE 106; RESP 14; TEMP 36.7; O2SAT 92
[2024-10-27 19:35] VITALS: BP 138/74; PULSE 112; RESP 18; TEMP 37; O2SAT 95
[2024-10-27] MEDS: OLANZapine 5 MG TABLET PO (20:09)
[2024-10-27] MEDS: diphenhydrAMINE HCL 25 MG CAPSULE PO (20:10)
[2024-10-27] MEDS: Melatonin 3 MG TABLET 6 MG PO (20:10)
[2024-10-27] MEDS: Atorvastatin Calcium 40 MG TABLET PO (20:15)
[2024-10-27 22:48] LABS: Strep Pneumo Ag urine Not Detected (Not Detected)
[2024-10-27 23:49] VITALS: BP 143/70; PULSE 106; RESP 18; TEMP 36.1; O2SAT 96
[2024-10-28] MEDS: Acetaminophen 325 MG TABLET 650 MG PO ×3 (03:00→21:30)
[2024-10-28 03:46] VITALS: BP 120/71; PULSE 95; RESP 18; TEMP 36.1; O2SAT 99
[2024-10-28 07:49] VITALS: BP 133/78; PULSE 104; RESP 18; TEMP 36.6; O2SAT 93
[2024-10-28] MEDS: Benzonatate 100 MG CAPSULE PO (08:10)
[2024-10-28] MEDS: Divalproex Sodium 500 MG TABLET.DR PO ×2 (08:10→19:44)
[2024-10-28] MEDS: 0.9 % Sodium Chloride Flush 3 ML SYRINGE IVFLUSH ×3 (08:10→19:45)
[2024-10-28] MEDS: Divalproex Sodium 250 MG TABLET.DR PO ×2 (08:10→19:45)
[2024-10-28] MEDS: Escitalopram Oxalate 5 MG TABLET PO (08:10)
[2024-10-28] MEDS: levETIRAcetam 1,000 MG TABLET 1000 MG PO ×2 (08:10→19:44)
[2024-10-28] MEDS: Cyclobenzaprine HCl 10 MG TABLET PO (08:10)
[2024-10-28] MEDS: Multivitamin TABLET 1 TAB PO (08:10)
[2024-10-28] MEDS: levoFLOXacin/D5W 750 MG/150 ML PIGGYBACK 100 MG IV (08:11)
--- NOTE | 2024-10-28 10:50 | P.PNIM_ITS ---
Subjective Subjective Date of Service: 10/28/24 Interval History: Seen in follow-up for multifocal pneumonia Interval history: Clinically feels better and appear better Review of Systems Review of Systems: Yes all other systems are reviewed and are negative Physical Exam 2 Vital Signs: Vital Signs: Last Vital Signs Temp 98 F 10/28/24 07:49 Pulse 104 H 10/28/24 07:49 Resp 18 10/28/24 07:49 BP 133/78 10/28/24 07:49 Pulse Ox 93 10/28/24 07:49 O2 Del Method Nasal Cannula 10/28/24 07:49 O2 Flow Rate 2 10/28/24 07:49 Oxygen Flow Rate 2 10/24/24 07:11 BMI result Body Mass Index 32.7 Constitutional - Awake and Alert, No apparent distress Eyes - PERRLA, EOMI Cardiovascular - S1S2, RRR, No edema Respiratory - Normal lung expansion, Normal respiratory effort, No respiratory distress, diminished R lung, scattered wheezes Gastrointestinal - NT / ND; +BS; No rebound or guarding Extremities - no calf tenderness bilaterally, no swelling Skin - Warm/Dry Neurological - Alert & oriented x3 Psychological - Appropriate affect Objective Data Active Medications Acetaminophen (Acetaminophen 325 Mg Tablet) 650 mg PO Q6H PRN PRN Reason: Pain, Mild 1-3,fever,headache Last Admin: 10/28/24 03:00 Dose: 650 mg Documented By: FRANCISCA Albuterol Sulfate (Albuterol Sulfate 90 Mcg 8 Gm Inhaler) 2 puff INHALE Q6H PRN PRN Reason: Wheezing Atorvastatin Calcium (Atorvastatin Calcium 40 Mg Tablet) 40 mg PO BEDTIME LG Last Admin: 10/27/24 20:15 Dose: 40 mg Documented By: FRANCISCA Benzonatate (Benzonatate 100 Mg Capsule) 100 mg PO TID PRN PRN Reason: Cough Last Admin: 10/28/24 08:10 Dose: 100 mg Documented By: CAROL Bisacodyl (Bisacodyl 10 Mg Supp.Rect) 10 mg HI DAILY PRN PRN Reason: Constipation Calcium Carbonate (Calcium Carbonate 750 Mg Tab.Chew) 750 mg PO Q4H PRN PRN Reason: Heartburn Cyclobenzaprine HCl (Cyclobenzaprine Hcl 10 Mg Tablet) 10 mg PO Q8H PRN PRN Reason: Pain in back Last Admin: 10/28/24 08:10 Dose: 10 mg Documented By: CAROL Diazepam (Diazepam 10 Mg/2 Ml Cartridge) 5 mg IVPUSH Q4H PRN PRN Reason: Seizures Diphenhydramine HCl (Diphenhydramine Hcl 25 Mg Capsule) 25 mg PO BEDTIME PRN PRN Reason: Insomnia Last Admin: 10/27/24 20:10 Dose: 25 mg Documented By: FRANCISCA Divalproex Sodium (Divalproex Sodium 250 Mg Tablet.) 250 mg PO BID [facility] Last Admin: 10/28/24 08:10 Dose: 250 mg Documented By: CAROL Divalproex Sodium (Divalproex Sodium 500 Mg Tablet.) 500 mg PO BID [facility] Last Admin: 10/28/24 08:10 Dose: 500 mg Documented By: CAROL Enoxaparin Sodium (Enoxaparin Sodium 40 Mg/0.4 Ml Syringe) 40 mg SUBCUT Q24H [facility] Last Admin: 10/27/24 14:06 Dose: 40 mg Documented By: KONRAD Escitalopram Oxalate (Escitalopram Oxalate 5 Mg Tablet) 5 mg PO DAILY [facility] Last Admin: 10/28/24 08:10 Dose: 5 mg Documented By: CAROL Guaifenesin (Guaifenesin 200 Mg/10 Ml 10 Ml Liquid) 15 ml PO Q6H PRN PRN Reason: Cough Last Admin: 10/25/24 18:36 Dose: 15 ml Documented By: CAMILA Hydroxyzine HCl (Hydroxyzine Hcl 50 Mg/Ml Vial) 50 mg IM Q4H PRN PRN Reason: Seizures Levofloxacin (Levaquin) 750 mg in 150 mls @ 100 mls/hr IV Q24H [facility] Last Infusion: 10/28/24 09:59 Dose: Infused Documented By: CAROL Levetiracetam (Levetiracetam 1,000 Mg Tablet) 1,000 mg PO BID [facility] Last Admin: 10/28/24 08:10 Dose: 1,000 mg Documented By: CAROL Loperamide HCl (Loperamide Hcl 2 Mg Capsule) 2 mg PO Q2H PRN PRN Reason: Diarrhea Magnesium Hydroxide (Milk Of Magnesia 30 Ml Oral.Susp) 30 ml PO DAILY PRN PRN Reason: Constipation Melatonin (Melatonin 3 Mg Tablet) 6 mg PO BEDTIME PRN PRN Reason: Insomnia Last Admin: 10/27/24 20:10 Dose: 6 mg Documented By: FRANCISCA Multivitamins/Vitamin C (Multivitamin Tablet) 1 tab PO DAILY [facility] Last Admin: 10/28/24 08:10 Dose: 1 tab Documented By: CAROL Olanzapine (Olanzapine 5 Mg Tablet) 5 mg PO BEDTIME [facility] Last Admin: 10/27/24 20:09 Dose: 5 mg Documented By: FRANCISCA Ondansetron HCl (Ondansetron Hcl 4 Mg/2 Ml Vial) 4 mg IVPUSH Q8H PRN PRN Reason: Nausea and Vomiting Senna (Sennosides 8.6 Mg Tablet) 8.6 mg PO DAILY PRN PRN Reason: Constipation Sodium Biphosphate/Sodium Phosphate (Sodium Phosphate,[place]-Dibasic 133 Ml Enema) 118 ml [place] DAILY PRN PRN Reason: Constipation Sodium Chloride (0.9 % Sodium Chloride Flush 3 Ml Syringe) 3 ml IVFLUSH QSHIFT [facility] Last Admin: 10/28/24 08:10 Dose: 3 ml Documented By: CAROL Labs 10/27/24 07:40 10/27/24 07:40 Labs: Laboratory Results - last 24 hr 10/25/24 12:02 Ur Strep pneumoniae Ag Not Detected Assessment and Plan (1) Pneumonia: Status: Acute Plan 39-year-old male with history of TBI, 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 Change to IV Levaquin 10/25 MRSA nasal swab negative Strep pneumo antigen and Legionella antigen pending DuoNebs q.4 hours while awake as needed titrate O2 to maintain sats greater than equal to 92% Repeat chest x-ray without any improvement in pleural effusion Pulmonology consult I don't think there is fluid to tap Chronic hypoxemic respiratory failure Continue supplemental O2 and wean as anahi Hypertension, BP is normal Not currently on any antihypertensive agents TBI with history of both seizures/pseudoseizures Breakthrough seizures 10/25 responsive to Valium 10 mg IV Continue Valium p.r.n. for breakthrough seizures Had been stable and well compensated at [facility] continue Keppra and Depakote at outpatient dosing Full code Lovenox Patient requires ongoing inpatient stay due to multi focal pneumonia with large right-sided pleural effusion which will require thoracentesis and expert consultation Quality Stroke Does the patient have a stroke diagnosis?: No VTE Prior VTE?: No VTE Risk Level:: Medical - moderate - high VTE Device Contraindication: Treatment Not Indicated VTE Drug Contraindication: N/A - Med Ordered
[2024-10-28 11:40] VITALS: BP 128/66; PULSE 103; RESP 18; TEMP 36.6; O2SAT 95
[2024-10-28] MEDS: Enoxaparin Sodium 40 MG/0.4 ML SYRINGE SUBCUT (15:09)
[2024-10-28 15:32] VITALS: BP 152/70; PULSE 98; RESP 20; TEMP 36.9; O2SAT 97
[2024-10-28] MEDS: OLANZapine 5 MG TABLET PO (19:44)
[2024-10-28] MEDS: Atorvastatin Calcium 40 MG TABLET PO (19:44)
[2024-10-28 19:54] VITALS: BP 158/86; PULSE 112; RESP 20; TEMP 36.9; O2SAT 95
[2024-10-28] MEDS: diphenhydrAMINE HCL 25 MG CAPSULE PO (21:30)
[2024-10-29] VITALS: BP 143/85; PULSE 103; RESP 18; TEMP 36.3; O2SAT 96
[2024-10-29] MEDS: Cyclobenzaprine HCl 10 MG TABLET PO (01:07)
[2024-10-29 03:55] VITALS: BP 141/78; PULSE 106; RESP 18; TEMP 36.4; O2SAT 97
[2024-10-29] MEDS: Acetaminophen 325 MG TABLET 650 MG PO ×2 (04:05→11:07)
[2024-10-29 07:39] VITALS: BP 135/97; PULSE 93; RESP 18; TEMP 36.6; O2SAT 96
[2024-10-29] MEDS: Divalproex Sodium 500 MG TABLET.DR PO (09:01)
[2024-10-29] MEDS: Divalproex Sodium 250 MG TABLET.DR PO (09:01)
[2024-10-29] MEDS: Multivitamin TABLET 1 TAB PO (09:01)
[2024-10-29] MEDS: 0.9 % Sodium Chloride Flush 3 ML SYRINGE IVFLUSH (09:01)
[2024-10-29] MEDS: Escitalopram Oxalate 5 MG TABLET PO (09:01)
[2024-10-29] MEDS: levoFLOXacin 750 MG TABLET PO (09:01)
[2024-10-29] MEDS: levETIRAcetam 1,000 MG TABLET 1000 MG PO (09:01)
--- NOTE | 2024-10-29 11:15 | P.DS_ITS ---
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 Patient reports that he had physical therapy yesterday with use of a TENS unit and had right arm pain afterwards. He states that he was medicated around 2:00 a.m. with Tylenol and that his pain became severe, 04/12 around 3 or 4:00 a.m.. He states pain has since fully resolved and denies current right arm pain. Patient noted to be febrile and tachycardic on arrival. Staff at [facility] reported to EMS that patient has had cough for past few weeks. ER Course Found to be febrile to 102.9. Given 1 L of lactated Ringer's and Tylenol. Chest x-ray with moderate to large volume right-sided pleural effusion with associated airspace disease. Admission requested Hospital Course Patient admitted to telemetry where his sats remained stable and his O2 was able to be titrated back to baseline. He was initially started on Levaquin IV but was transitioned to p.o. and observed times 48 hours without incident. At this point in time he is back to his baseline and is acceptable to returned to [facility] to complete a 5 day course of Levaquin. I will follow him there Time Attestation Discharge Coordination Time (in mins): 35 Quality: Safe Use of Opioids Does Pt have an Active Cancer Diagnosis on the Problem List?: No Quality: Stroke Does the patient have a stroke diagnosis?: No Physical Exam Vital Signs: Vital Signs: Last Vital Signs Temp 97.8 F 10/29/24 07:39 Pulse 93 10/29/24 07:39 Resp 18 10/29/24 07:39 BP 135/97 H 10/29/24 07:39 Pulse Ox 96 10/29/24 07:39 O2 Del Method Nasal Cannula 10/29/24 03:55 O2 Flow Rate 2 10/29/24 03:55 Oxygen Flow Rate 2 10/24/24 07:11 BMI result Body Mass Index 32.7 Const: Other: Awake alert ill-appearing Resp: Other: Diminished right base scattered wheezes throughout Cardio: Other: No S4; positive S1-S2; no S3 murmurs rubs or gallops GI: Other: Soft nontender nondistended normoactive bowel sounds Extrem: Other: No edema bilaterally DS: Data Data Completed and Pending Completed studies during hospitalization [Text1]: Procedures Assistance with Respiratory Ventilation, Less than 24 Consecutive Hours, Continuous Positive Airway Pressure (04/15/23) Discharge Plan Discharge Anticipated Discharge Date/Time: 10/29/24 11:09 Patient Disposition: Xfer [facility] Discharge Diagnosis: Right lower lobe pneumonia Referrals: Antonio Mcmillan DO [Primary Care Provider] - 1 Week Discharge Medications: New levofloxacin 750 mg Tablet 750 mg PO Q24H Qty: 5 0RF Continued polyvinyl alcohol 1.4 % Drops 1 drp OPHTHALMIC (EYE) Q6H PRN (Reason: Dry Eye(S)) guaifenesin 100 mg/5 mL Liquid 300 mg PO Q6H PRN (Reason: Cough) melatonin 5 mg Tablet 5 mg PO BEDTIME multivitamin Tablet 1 tab PO DAILY sennosides [senna] 8.6 mg Tablet 8.6 mg PO DAILY PRN (Reason: Constipation) acetaminophen 325 mg Tablet 650 mg PO Q6H PRN (Reason: Fever Or Pain) citalopram 10 mg Tablet 10 mg PO DAILY divalproex [Depakote] 500 mg Tablet,Delayed Release (Dr/Ec) 500 mg PO BID albuterol sulfate 90 mcg/actuation Hfa Aerosol Inhaler 2 puff INHALATION Q6H PRN (Reason: Wheezing) levetiracetam 1,000 mg Tablet 1,000 mg PO BID Qty: 60 0RF olanzapine 10 mg tablet 5 mg PO BEDTIME loperamide 2 mg Tablet 2 mg PO Q2H PRN (Reason: Diarrhea) Rx Instructions: administer after each loose stool until symptoms controlled; do not exceed 16 mg per 24 hrs bisacodyl 10 mg Suppository 10 mg CA DAILY PRN (Reason: Constipation) Fleet Enema 19-7 gram/118 mL Enema 118 ml CA DAILY PRN (Reason: Constipation) hydroxyzine HCl 50 mg/mL Solution 50 mg IM Q4H PRN (Reason: Seizures) rosuvastatin [Crestor] 10 mg Tablet 10 mg PO BEDTIME Dulera 100-5 mcg/actuation HFA aerosol inhaler 2 puff inhalation BID Qty: 1 3RF cyclobenzaprine 10 mg tablet 10 mg PO Q8H PRN (Reason: Pain) diphenhydramine HCl [Allergy (diphenhydramine)] 25 mg capsule 25 mg PO BEDTIME PRN (Reason: Insomnia) divalproex 250 mg tablet,delayed release (DR/EC) 250 mg PO BID Discharge Orders: Discharge Order (Routine); Ordered 10/29/24 Ordered By: Antonio Mcmillan Diet: Advance to usual diet Activity on Discharge: As tolerated Stand Alone Forms: Patient Portal Discharge page Print Language: Bahamian Care Plan Goals: Levaquin 750 mg daily x5 days has been added to your regimen Health Concerns: Continue all medications as taken prior to hospitalization Plan of Treatment: Continue to utilize her O2 at 2 L a minute as needed. Adjusting as indicated Assessment: See discharge summary
[2024-10-29 11:21] VITALS: BP 145/76; PULSE 88; RESP 17; TEMP 36.6; O2SAT 94
--- NOTE | 2024-10-29 11:38 | MHC.CM.PN ---
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 PCP confirmed: Rosemarie Aldridge, HCP was not discussed, CM to return later to address this. For DME, pt. has a cane and walker. [employer]NAGER to transport home at DC. DCP: home with services. CM to follow for DC needs.
--- NOTE | 2024-10-29 11:58 | MHC.CM.PN ---
Addendum entered by Patrica Jimenez 10/29/24 12:16: Pt to be transported by [facility], the BLS transport is not covered under his ins. Original Note: Pt has been medically cleared to [place], he will return to [facility] via [facility] this afternoon.
[2024-10-30 04:34] LABS: Legionella Ag Urine Not Detected (Not Detected)
== END 2024-10-29 14:00 | DRG 139 ==
LOC: HO.ED 13:14 → HO.EDOVER 14:29 → HO.IMC 17:11
PROVIDERS: Family Medicine; Admitting Provider Hospitalist; Emergency Provider Emergency Medicine; PCP Hospitalist; Visit Provider Hospitalist
DX: J18.9 Pneumonia, unspecified organism (principal); F44.5 Conversion disorder with seizures or convulsions; R56.9 Unspecified convulsions; J96.11 Chronic respiratory failure with hypoxia; Z99.81 Dependence on supplemental oxygen; F43.10 Post-traumatic stress disorder, unspecified; I10 Essential (primary) hypertension; Z20.822 Contact with and (suspected) exposure to COVID-19; Z22.322 Carrier or suspected carrier of Methicillin resistant Staphylococcus aureus; Z88.0 Allergy status to penicillin; Z87.892 Personal history of anaphylaxis; Z87.820 Personal history of traumatic brain injury; Z79.899 Other long term (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
CPT/HCPCS: 0241U; 36415; 71045; 71250; 80053; 81001; 82947; 83605; 83880; 84145; 84484; 85025; 87040; 87449; 87640; 87641; 87899; 93005; 93971; 99285; J0692; J1650; J1956; J2270; J3360; J3370; J7120

== ENCOUNTER → 2024-10-24 07:21 | Outpatient (BNV) | payer MEDICAID, SELFPAY | PROVIDERS: Admitting Provider Hospitalist; Emergency Provider Emergency Medicine; PCP Hospitalist; Visit Provider Internal Medicine | DX: R00.0 Tachycardia, unspecified (principal); R07.9 Chest pain, unspecified | CPT/HCPCS: 93010 ==

== ENCOUNTER → 2024-10-24 07:28 | Outpatient (BNV) | payer MEDICAID, SELFPAY | PROVIDERS: Emergency Provider Emergency Medicine; PCP Hospitalist; Visit Provider Radiology Diagnostic Radiology | DX: R91.8 Other nonspecific abnormal finding of lung field (principal); K76.0 Fatty (change of) liver, not elsewhere classified; M79.621 Pain in right upper arm; J90 Pleural effusion, not elsewhere classified | CPT/HCPCS: 71045; 71250; 93971 ==

== ENCOUNTER 2024-10-24 14:17 | Outpatient (BNV) | payer MEDICAID, SELFPAY | END 2024-10-27 11:21 | PROVIDERS: Admitting Provider Hospitalist; Emergency Provider Emergency Medicine; PCP Hospitalist; Visit Provider Radiology Vascular & Interventional Radiology | DX: R91.8 Other nonspecific abnormal finding of lung field (principal) | CPT/HCPCS: 71045 ==

== ENCOUNTER → 2024-10-24 14:17 | Outpatient (BNV) | payer MEDICAID, SELFPAY | PROVIDERS: Admitting Provider Hospitalist; Emergency Provider Emergency Medicine; PCP Hospitalist; Visit Provider Hospitalist | DX: J18.9 Pneumonia, unspecified organism (principal) | CPT/HCPCS: 99232; 99499 ==

== ENCOUNTER 2024-12-18 09:22 | Outpatient (AMB) | payer MEDICAID, SELFPAY ==
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
[2024-12-18 09:45] VITALS: BP 152/80; PULSE 111; O2SAT 90; BMI 35.7
--- OUTSIDE RECORDS SUMMARY | 2024-12-18 10:07 | XMS_ITS | Encounter Summary ---
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 Social History Tobacco Use [...] Diagnosis Comments CBC WITH AUTO DIFFERENTIAL Routine 12/13/2024 6:50 AM EDT Other retirement (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 CBC AND DIFFERENTIAL Routine 12/13/2024 6:50 AM EDT 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 AMMONIA Routine 12/13/2024 6:50 AM EDT Other retirement (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 COMPREHENSIVE METABOLIC PANEL Routine 12/13/2024 6:50 AM EDT Other retirement (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 documented in this encounter Results * (ABNORMAL) CBC auto differential (12/13/2024 6:50 AM EDT) WBC 4.9 4.8 - 10.8 K/mcL LAB HEMETOLOGY METHOD 12/13/2024 7:35 AM [facility] RBC 5.40 4.50 - 5.50 M/mcL LAB HEMETOLOGY METHOD 12/13/2024 7:35 AM [facility] Hemoglobin 15.5 13.5 - 17.5 g/dL LAB HEMETOLOGY METHOD 12/13/2024 7:35 AM [facility] Hematocrit 49.3 42.0 - 54.0 % LAB HEMETOLOGY METHOD 12/13/2024 7:35 AM [facility] MCV 92.0 79.0 - 98.0 FL LAB HEMETOLOGY METHOD 12/13/2024 7:35 AM [facility] MCH 28.9 27.0 - 32.0 pcg LAB HEMETOLOGY METHOD 12/13/2024 7:35 AM [facility] MCHC 31.4(L) 32.0 - 37.0 g/dL LAB HEMETOLOGY METHOD 12/13/2024 7:35 AM [facility] RDW 13.7 11.0 - 15.0 % LAB HEMETOLOGY METHOD 12/13/2024 7:35 AM [facility] Platelets 209 130 - 400 K/mcL LAB HEMETOLOGY METHOD 12/13/2024 7:35 AM [facility] MPV 9.2 7.0 - 11.0 FL LAB HEMETOLOGY METHOD 12/13/2024 7:35 AM [facility] NRBC 0.0 <1.0 % LAB HEMETOLOGY METHOD 12/13/2024 7:35 AM [facility] NRBC Absolute 0.00 <0.10 K/mcL LAB HEMETOLOGY METHOD 12/13/2024 7:35 AM [facility] Neutrophils Relative 41.3 % LAB HEMETOLOGY METHOD 12/13/2024 7:35 AM [facility] Lymphocytes Relative 50.0 % LAB HEMETOLOGY METHOD 12/13/2024 7:35 AM [facility] Monocytes Relative 7.5 % LAB HEMETOLOGY METHOD 12/13/2024 7:35 AM [facility] Eosinophils Relative 0.6 % LAB HEMETOLOGY METHOD 12/13/2024 7:35 AM [facility] Basophils Relative 0.4 % LAB HEMETOLOGY METHOD 12/13/2024 7:35 AM [facility] Immature Granulocytes Relative 0.2 % LAB HEMETOLOGY METHOD 12/13/2024 7:35 AM [facility] Neutrophils Absolute 2.03 1.50 - 7.00 K/mcL LAB HEMETOLOGY METHOD 12/13/2024 7:35 AM [facility] Lymphocytes Absolute 2.46 1.00 - 5.00 K/mcL LAB HEMETOLOGY METHOD 12/13/2024 7:35 AM [facility] Monocytes Absolute 0.37 0.20 - 1.00 K/mcL LAB HEMETOLOGY METHOD 12/13/2024 7:35 AM [facility] Eosinophils Absolute 0.03 0.00 - 0.50 K/mcL LAB HEMETOLOGY METHOD 12/13/2024 7:35 AM [facility] Basophils Absolute 0.02 0.00 - 0.20 K/mcL LAB HEMETOLOGY METHOD 12/13/2024 7:35 AM [facility] Immature Granulocytes Absolute 0.01 0.00 - 0.03 K/mcL LAB HEMETOLOGY METHOD 12/13/2024 7:35 AM [facility] Blood Venous blood specimen / Unknown 12/13/2024 6:50 AM EDT 12/13/2024 7:15 AM EDT us Antonio Mcmillan MD LAB BLOOD ORDERABLES Final Resul t Performing Organization Address [facility]/ZIP Co de Phone Number [facility] [address] [place] [address], [place] [phone] * (ABNORMAL) Ammonia (12/13/2024 6:50 AM EDT) Ammonia 64(H) 11 - 35 mcmol/L LAB CHEMISTRY METHOD 12/13/2024 8:59 AM EDT [facility] Blood Venous blood specimen / Unknown 12/13/2024 6:50 AM EDT 12/13/2024 7:15 AM EDT us Antonio Mcmillan MD LAB BLOOD ORDERABLES Final Resul t Performing Organization Address [facility] de Phone Number [facility] [address] [place] [address], [place] [phone] * (ABNORMAL) Comprehensive metabolic panel (12/13/2024 6:50 AM EDT) Pathologist [facility] Sodium 137 133 - 145 mmol/L LAB CHEMISTRY METHOD 12/13/2024 9:01 AM [facility] Potassium 4.6 3.5 - 5.5 mmol/L LAB CHEMISTRY METHOD 12/13/2024 9:01 AM [facility] Comment:Hemolysis present Chloride 99 96 - 110 mmol/L LAB CHEMISTRY METHOD 12/13/2024 9:01 AM [facility] CO2 33(H) 21 - 32 mmol/L LAB CHEMISTRY METHOD 12/13/2024 9:01 AM [facility] Anion Gap 5 3 - 11 LAB CHEMISTRY METHOD 12/13/2024 9:01 AM [facility] Glucose 159(H) 70 - 100 mg/dL LAB CHEMISTRY METHOD 12/13/2024 9:01 AM [facility] BUN 9 5 - 25 mg/dL LAB CHEMISTRY METHOD 12/13/2024 9:01 AM [facility] Creatinine 0.63(L) 0.70 - 1.30 mg/dL LAB CHEMISTRY METHOD 12/13/2024 9:01 AM [facility] eGFR 126 >=60 mL/min/1. 73m2 LAB CHEMISTRY METHOD 12/13/2024 9:01 AM [facility] Comment:Calculation based on the Chronic Kidney Disease Epidemiology Collaboration (CKD-EPI) equation refit without adjustment for race. BUN/Creatinine Ratio 14.3 LAB CHEMISTRY METHOD 12/13/2024 9:01 AM [facility] Calcium 9.6 8.5 - 10.5 mg/dL LAB CHEMISTRY METHOD 12/13/2024 9:01 AM [facility] AST (SGOT) 61(H) 10 - 42 unit/L LAB CHEMISTRY METHOD 12/13/2024 9:01 AM [facility] Comment:Hemolysis present ALT (SGPT) 79(H) 10 - 60 unit/L LAB CHEMISTRY METHOD 12/13/2024 9:01 AM [facility] Alkaline Phosphatase 81 42 - 121 unit/L LAB CHEMISTRY METHOD 12/13/2024 9:01 AM [facility] Total Protein 7.4 6.0 - 8.0 g/dL LAB CHEMISTRY METHOD 12/13/2024 9:01 AM [facility] Albumin 3.5 3.2 - 5.0 g/dL LAB CHEMISTRY METHOD 12/13/2024 9:01 AM [facility] Total Bilirubin 0.6 0.0 - 1.4 mg/dL LAB CHEMISTRY METHOD 12/13/2024 9:01 AM [facility] Blood Venous blood specimen / Unknown 12/13/2024 6:50 AM EDT 12/13/2024 7:15 AM EDT us Antonio Mcmillan MD LAB BLOOD ORDERABLES Final Resul t [facility]INDEN [facility] [place] (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
== END 2024-12-18 10:43 | disposition home or self-care (01) ==
LOC: HO.HPSW 09:23
PROVIDERS: PCP Hospitalist; Visit Provider Nurse Practitioner Family
DX: J96.10 Chronic respiratory failure, unspecified whether with hypoxia or hypercapnia (principal); J45.40 Moderate persistent asthma, uncomplicated; J98.6 Disorders of diaphragm; G56.80 Other specified mononeuropathies of unspecified upper limb; G47.34 Idiopathic sleep related nonobstructive alveolar hypoventilation
CPT/HCPCS: 99214

== ENCOUNTER → 2024-12-18 09:22 | Outpatient (BNVA) | payer MEDICAID, SELFPAY | PROVIDERS: PCP Hospitalist; Visit Provider Nurse Practitioner Family | DX: J96.10 Chronic respiratory failure, unspecified whether with hypoxia or hypercapnia (principal); J45.40 Moderate persistent asthma, uncomplicated; J98.6 Disorders of diaphragm; G56.80 Other specified mononeuropathies of unspecified upper limb; G47.34 Idiopathic sleep related nonobstructive alveolar hypoventilation | CPT/HCPCS: 99212 ==

== ENCOUNTER 2025-01-08 14:07 | Outpatient (REF) | payer MEDICAID, SELFPAY ==
--- OUTSIDE RECORDS SUMMARY | 2015-08-02 20:00 | XMS_ITS | Continuity of Care Document ---
Author Organization [facility] Address [address] [place] [address] Phone Care Team Providers Care Volunteer Manager Name Role Phone Provider, Conversion Unavailable Unavailable Advance Directives Directive Yes / No Effective Date File Name No Information Encounters Encounter Description Practice Location Reason(s) For Visit Diagnoses Date Provider Providers Copied on Encounter [facility], [address] [place] [address], [id number], [place] tel:[phone] [facility] Behavioral Health/EP No Information Provider Conversion . . Family History Family Member Type Diagnosis Age At Onset No Information Payers Payer name Insurance type Covered democrat ID Authoriza tion(s) No Information Social History Type Description Quantity Date Captured Comments Sex Male Smoking Status No Information Chief Complaint And Reason For Visit No Information Reason For Referral Reason For Referral No Information History Of Present Illness Encounter Date Complaint History Of Prese nt Illness No Information Functional Status Date Functional Assessmen t No Information Instructions Date Instruction Additional Infor mation No Information Assessments Type Assessment Date No Information Patient Care Teams Name Effective Dates (start - stop) Status Members No Information
--- NOTE | ~2025-01-08 | FL_ITS ---
EXAMINATION: Modified Barium Swallow CLINICAL INFORMATION: Dysphagia. COMPARISON: None. TECHNIQUE: Modified barium swallow was performed under lateral fluoroscopy with patient in standing position. Barium mixed with solids and liquids of different consistencies was administered by the speech pathologist. Examination was recorded in the fluoroscopy suite. FINDINGS: On thin liquids, there was one episode of transient laryngeal penetration to the level of the cords without subglottic aspiration. On thickened liquids and solids, there was no penetration, glottic or subglottic aspiration. FLUOROSCOPY TIME: 1 minute 58 seconds Number of Spot Images: N/A DOSE AREA PRODUCT: [id number] uGy-m2 (microgray-meter squared) FL/FL Modified Barium Swallow IMPRESSION: Episode of transient laryngeal penetration on thin liquids. No subglottic aspiration. Refer to the full speech therapy report for to follow further detail. Electronically signed by: Garett Morfin MD 01/08/2025 02:43 PM EDT
--- OUTSIDE RECORDS SUMMARY | 2025-01-08 14:57 | XMS_ITS | Data Portability ---
Author Organization [place] [facility] [place] [employer] Address [address] [facility] [address] [place] [address] Care Team Providers Care Client Business Manager Name Role Phone VERONIQUE VITALIY Primary Care Provider Assessment No assessment recorded. Plan of Treatment Reminders Order Date Submit Date Provider Last Modified By Organization Details Last Modified Time Details Appointments None recorded . Lab None recorded . Referral None recorded . Procedures None recorded . Surgeries None recorded . Imaging XR, shoulder , 2 or more view - Room 3 please 023 09/04/19 23 [facility] [address], [address], [place], [address], 12:54:13 Medication Orders None recorded . Patient [...] Exam Date: 2022 Orderi ng Provid er: [id number] [facility] [address], [place], [address], 09/03/2022 16:20:38 Result Notes Documentation Provider Name and Address Organization Details Recorded Time Xr, Shoulder, 2 Or More View : TRUE AP/SCAPULAR Y/AX XR SHOULDER 3V [facility] Patient Name: RANJANA SOTO Date of : 1985 Exam Date: 09/03/2022 Ordering Provider: [id number] Mani Morton MD [address], [place], [address], [facility] 09/03/2022 16:20:38 Problems Name Problem SNOMED Code Status Onset Date Resolution Date Notes Provider Name and Address Organization Details Recorded Time Brachial plexopathy of right upper limb 6114271921327 9103 Active 2022 Mani Morton MD [address], [place], [address], [facility] 14:19:54 Problem Notes None recorded. Medical Equipment None Reported. Allergies Allergen ID Allergen Name Allergen Category Reaction Reaction Severity Criticality Documentation Date Start Date Code Code System Note Provider Name and Address Organization Details Recorded Time 429136 Zoloft medicatio n dizziness Not available Not available 09/03/2022 94812 RxNorm Yvette Roy null, [facility] 3 11:50:17 Medications Name Sig Start Date Stop Date [...] Updated DateTime 09/03/2022 165.1 cm 29.1 kg/m2 67313.66 g Yvette Roy [facility] 09/03/2022 11:49:57 Social History Question Answer Notes LastModified by Organizat ion Details LastModified Time Tobacco Smoking Status Never Smoker Yvette law [facility] 09/03/2022 11:50:53 How Much Alcohol Do You Drink In A Week? None Information not available 09/03/2022 What Was The Date Of Your Most Recent Tobacco Screening? 09/03/2022 [email or web address] Information not available 09/03/2022 Sex: Unknown Functional Status None recorded. Mental Status None recorded. Family History Nothing Reported. Medical History Condition Response Anxiety/Depression Y High Blood Pressure Y Past Encounters Encounter ID Performer Location Encounter Start Date Encounter Closed Date Diagnosis/Indication Diagnosis SNOMED-CT Code Diagnosis ICD10 Code Diagnosis Note [id number] MD Cynthia Ballard [facility] 1 [address]thia Srinivasan [facility] [place] [id number] 09/03/2022 11:24:47 09/03/2022 12:21:14 Pain of right shoulder joint 2231837814 4155962 M25.511 Brachial p lexopathy of right upper limb 8661688020 1349708 G54.0 he has a severe right upper [...] Recorded Advance Directives Directive None Recorded Payers Insurance Date Sequence Insurance Name Policy Number Policy Norman Covered Member ID Norman Member ID Guarantor Name 09/02/2022 1 [place] Ranjana Soto [id number] Ranjana Soto 08/19/2022 1 [facility] (MEDICAID REPLACEMENT - HMO) [id number] Ranjana Soto [id number] Ranjana Soto 08/19/2022 1 [facility] (MEDICAID REPLACEMENT - HMO) [id number] Ranjana Siu Brittany [id number] Ranjana Salbador Brittany Notes Date Note Type Note Provider Name [...] of stretching. Mani Morton MD [address], [place], [address], [facility] 09/03/2022 14:20:10
--- OUTSIDE RECORDS SUMMARY | 2025-01-08 14:57 | XMS_ITS | Encounter Summary ---
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 Social History Tobacco [...] DIFFERENTIAL Routine 12/13/2024 6:50 AM EDT Other half-way (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 CBC AND DIFFERENTIAL Routine 12/13/2024 6:50 AM EDT Other termite inspector (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 AMMONIA Routine 12/13/2024 6:50 AM EDT Other termite inspector (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 COMPREHENSIVE METABOLIC PANEL Routine 12/13/2024 6:50 AM EDT Other termite inspector (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 documented in this encounter Results * (ABNORMAL) CBC auto differential (12/13/2024 6:50 AM EDT) WBC 4.9 4.8 - 10.8 K/mcL LAB HEMETOLOGY METHOD 12/13/2024 7:35 AM [facility] RBC 5.40 4.50 - 5.50 M/mcL LAB HEMETOLOGY METHOD 12/13/2024 7:35 AM [facility] Hemoglobin 15.5 13.5 - 17.5 g/dL LAB HEMETOLOGY METHOD 12/13/2024 7:35 AM [facility] Hematocrit 49.3 42.0 - 54.0 % LAB HEMETOLOGY METHOD 12/13/2024 7:35 AM [facility] MCV 92.0 79.0 - 98.0 FL LAB HEMETOLOGY METHOD 12/13/2024 7:35 AM [facility] MCH 28.9 27.0 - 32.0 pcg LAB HEMETOLOGY METHOD 12/13/2024 7:35 AM [facility] MCHC 31.4(L) 32.0 - 37.0 g/dL LAB HEMETOLOGY METHOD 12/13/2024 7:35 AM [facility] RDW 13.7 11.0 - 15.0 % LAB HEMETOLOGY METHOD 12/13/2024 7:35 AM [facility] Platelets 209 130 - 400 K/mcL LAB HEMETOLOGY METHOD 12/13/2024 7:35 AM [facility] MPV 9.2 7.0 - 11.0 FL LAB HEMETOLOGY METHOD 12/13/2024 7:35 AM [facility] NRBC 0.0 <1.0 % LAB HEMETOLOGY METHOD 12/13/2024 7:35 AM [facility] NRBC Absolute 0.00 <0.10 K/mcL LAB HEMETOLOGY METHOD 12/13/2024 7:35 AM [facility] Neutrophils Relative 41.3 % LAB HEMETOLOGY METHOD 12/13/2024 7:35 AM [facility] Lymphocytes Relative 50.0 % LAB HEMETOLOGY METHOD 12/13/2024 7:35 AM [facility] Monocytes Relative 7.5 % LAB HEMETOLOGY METHOD 12/13/2024 7:35 AM [facility] Eosinophils Relative 0.6 % LAB HEMETOLOGY METHOD 12/13/2024 7:35 AM [facility] Basophils Relative 0.4 % LAB HEMETOLOGY METHOD 12/13/2024 7:35 AM [facility] Immature Granulocytes Relative 0.2 % LAB HEMETOLOGY METHOD 12/13/2024 7:35 AM [facility] Neutrophils Absolute 2.03 1.50 - 7.00 K/mcL LAB HEMETOLOGY METHOD 12/13/2024 7:35 AM [facility] Lymphocytes Absolute 2.46 1.00 - 5.00 K/mcL LAB HEMETOLOGY METHOD 12/13/2024 7:35 AM [facility] Monocytes Absolute 0.37 0.20 - 1.00 K/mcL LAB HEMETOLOGY METHOD 12/13/2024 7:35 AM [facility] Eosinophils Absolute 0.03 0.00 - 0.50 K/mcL LAB HEMETOLOGY METHOD 12/13/2024 7:35 AM [facility] Basophils Absolute 0.02 0.00 - 0.20 K/mcL LAB HEMETOLOGY METHOD 12/13/2024 7:35 AM [facility] Immature Granulocytes Absolute 0.01 0.00 - 0.03 K/mcL LAB HEMETOLOGY METHOD 12/13/2024 7:35 AM [facility] Blood Venous blood specimen / Unknown 12/13/2024 6:50 AM EDT 12/13/2024 7:15 AM EDT us Antonio Mcmillan MD LAB BLOOD ORDERABLES Final Resul t Performing Organization Address [facility]/ZIP Co de Phone Number [facility] [address] [place] [address], [place] [phone] * (ABNORMAL) Ammonia (12/13/2024 6:50 AM EDT) Ammonia 64(H) 11 - 35 mcmol/L LAB CHEMISTRY METHOD 12/13/2024 8:59 AM EDT [facility] Blood Venous blood specimen / Unknown 12/13/2024 6:50 AM EDT 12/13/2024 7:15 AM EDT us Antonio Mcmillan MD LAB BLOOD ORDERABLES Final Resul t Performing Organization Address [facility] de Phone Number [facility] [address] [place] [address], [place] [phone] * (ABNORMAL) Comprehensive metabolic panel (12/13/2024 6:50 AM EDT) Pathologist [facility] Sodium 137 133 - 145 mmol/L LAB CHEMISTRY METHOD 12/13/2024 9:01 AM [facility] Potassium 4.6 3.5 - 5.5 mmol/L LAB CHEMISTRY METHOD 12/13/2024 9:01 AM [facility] Comment:Hemolysis present Chloride 99 96 - 110 mmol/L LAB CHEMISTRY METHOD 12/13/2024 9:01 AM [facility] CO2 33(H) 21 - 32 mmol/L LAB CHEMISTRY METHOD 12/13/2024 9:01 AM [facility] Anion Gap 5 3 - 11 LAB CHEMISTRY METHOD 12/13/2024 9:01 AM [facility] Glucose 159(H) 70 - 100 mg/dL LAB CHEMISTRY METHOD 12/13/2024 9:01 AM [facility] BUN 9 5 - 25 mg/dL LAB CHEMISTRY METHOD 12/13/2024 9:01 AM [facility] Creatinine 0.63(L) 0.70 - 1.30 mg/dL LAB CHEMISTRY METHOD 12/13/2024 9:01 AM [facility] eGFR 126 >=60 mL/min/1. 73m2 LAB CHEMISTRY METHOD 12/13/2024 9:01 AM [facility] Comment:Calculation based on the Chronic Kidney Disease Epidemiology Collaboration (CKD-EPI) equation refit without adjustment for race. BUN/Creatinine Ratio 14.3 LAB CHEMISTRY METHOD 12/13/2024 9:01 AM [facility] Calcium 9.6 8.5 - 10.5 mg/dL LAB CHEMISTRY METHOD 12/13/2024 9:01 AM [facility] AST (SGOT) 61(H) 10 - 42 unit/L LAB CHEMISTRY METHOD 12/13/2024 9:01 AM [facility] Comment:Hemolysis present ALT (SGPT) 79(H) 10 - 60 unit/L LAB CHEMISTRY METHOD 12/13/2024 9:01 AM [facility] Alkaline Phosphatase 81 42 - 121 unit/L LAB CHEMISTRY METHOD 12/13/2024 9:01 AM [facility] Total Protein 7.4 6.0 - 8.0 g/dL LAB CHEMISTRY METHOD 12/13/2024 9:01 AM [facility] Albumin 3.5 3.2 - 5.0 g/dL LAB CHEMISTRY METHOD 12/13/2024 9:01 AM [facility] Total Bilirubin 0.6 0.0 - 1.4 mg/dL LAB CHEMISTRY METHOD 12/13/2024 9:01 AM [facility] Blood Venous blood specimen / Unknown 12/13/2024 6:50 AM EDT 12/13/2024 7:15 AM EDT us Antonio Mcmillan MD LAB BLOOD ORDERABLES Final Resul t [facility] [address] [place] [address], documented in this encounter Visit Diagnoses Diagnosis Other half-way (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 documented in this encounter Care Teams Dairy Quality Assurance Officer Relationship Specialty Start Date End Date Antonio Mcmillan MD [address] [place], [place] PCP - General Internal Medicine 08/10/24 documented as of this encounter
--- OUTSIDE RECORDS SUMMARY | 2025-01-08 14:57 | XMS_ITS | Clinical Summary ---
Author Organization [address] Address [address] [place] [address] Phone Care Team Providers Care Mains And Service Supervisor Name Role Phone Antonio Mcmillan DO Primary Care Provider [phone] Allergies No known active allergies Medications acetaminophen [...] Problems Problem Noted Date Diagnosed Date Seizure (HC Code) 02/17/2024 Social History Tobacco Use Types Packs/Day Years Used Date Smoking Tobacco: Never Assessed [facility] Utilities Answer Date Recorded In the past 12 months has e Scaled [employer], gas, oil, or water Socialize threatened to shut off services in your [...] 80 02/21/2024 7:13 AM EDT Temperature 36.7 C (98.1 F) 02/21/2024 7:13 AM EDT Respiratory Rate 19 02/21/2024 7:13 AM EDT [...] MEDICAID [place] on file [facility] at [address] [address] Advance Directives * Full Code (Latest Code Status on File) Date Activated Date Inactivated Comments 02/17/2024 5:24 PM 02/21/2024 2:32 PM Question Answer Comments With Whom was the Code Status Discussed? Patient Care Teams Mains And Service Supervisor Relationship Specialty Start Date End Date Antonio Mcmillan DO [address] [place] [address] PCP - General Internal Medicine 02/17/24
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
== END 2025-01-08 14:08 | disposition home or self-care (01) ==
LOC: HO.XRAY 14:07
PROVIDERS: Visit Provider Hospitalist
DX: J69.0 Pneumonitis due to inhalation of food and vomit (principal)
CPT/HCPCS: 74230; 92611

== ENCOUNTER → 2025-01-08 14:17 | Outpatient (BNV) | payer MEDICAID, SELFPAY | PROVIDERS: Visit Provider Radiology Diagnostic Radiology | DX: R13.10 Dysphagia, unspecified (principal) | CPT/HCPCS: 74230 ==

== ENCOUNTER 2025-01-28 14:39 | Emergency (ER) | payer MEDICAID, SELFPAY ==
--- NOTE | ~2025-01-28 | CT_ITS ---
CLINICAL HISTORY: Generalized abdominal pain CT abdomen and pelvis with contrast Comparison: None provided Findings: Atelectasis with more ill-defined dense consolidations in the right lung. Hepatomegaly with steatosis. Possible focal fatty sparing along the gallbladder fossa. No urolithiasis. No bowel obstruction, pneumoperitoneum, or pneumatosis. Supra and periumbilical fat containing hernias. Normal appendix. The bones are intact. Right femoral intramedullary robin. IMPRESSION: Atelectasis with more ill-defined dense consolidations in the right lung. Pneumonia not excluded. No acute intra abdominopelvic pathology. This document has been electronically signed by: Sandeep White MD on 01/28/2025 18:33:23
[2025-01-28 14:53] VITALS: BP 141/94; BP 146/100; PULSE 98; PULSE 99; RESP 18; TEMP 36.9; O2SAT 85; O2SAT 88; BMI 32.5
[2025-01-28 14:57] VITALS: O2SAT 96
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
[2025-01-28 15:30] LABS: MANUAL DIFF FLAG NO
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
[2025-01-28 15:38] LABS: Hematocrit 45.6 % (42.0-52.0); Hemoglobin 15.3 g/dl (14.0-18.0); Imm Gran Abs Auto 0.03 X10*3/uL (0.00-0.03); Imm Gran Pct Auto 0.4 % (0.0-0.4); Lymphocytes Absolute Auto 2.3 X10*3/uL (1.2-4.9); Mean Corpuscular HGB Conc 33.6 g/dl (31.0-36.0); Mean Corpuscular Hemoglobin 29.8 pg (27.0-33.0); Mean Corpuscular Volume 88.7 fL (80.0-98.0); NRBC Abs Auto 0.000 X10*3/uL (0.0-0.012); NRBC Pct Auto 0.0 /100WBC (0.0-0.2); Platelet Count 169 X10*3/uL (160-400); Red Blood Count 5.14 X10*6/uL (4.60-5.80); White Blood Count 7.5 X10*3/uL (4.8-10.8)
[2025-01-28 15:47] LABS: Alanine Aminotransferase 133 U/L (0-40); Albumin Level 4.3 g/dL (3.5-5.0); Alkaline Phosphatase 93 U/L (39-117); Anion Gap 16 (12-20); Aspartate Amino Transferase 111 U/L (5-37); Blood Urea Nitrogen 10 mg/dL (9-16); Calcium 9.4 mg/dL (8.4-10.2); Carbon Dioxide 29 mmol/L (22-29); Chloride 99 mmol/L (96-108); Creatinine Clr Calc Pharmacy 155.1; Estimated Glomerular Filt Rate > 60; Lipase 48 U/L (8-78); Magnesium 1.8 mg/dL (1.6-2.6); Potassium 4.5 mmol/L (3.3-5.1); Sodium 139 mmol/L (135-145); Total Protein 7.4 g/dL (6.5-8.0)
--- OUTSIDE RECORDS SUMMARY | 2025-01-28 16:02 | XMS_ITS | Encounter Summary ---
Author Organization [facility] Address [address] [place] [address] Care Team Providers Care Smoke Tester Name Role Phone Antonio Mcmillan MD Primary Care Provider [phone] Encounter Details Date Type Department Care Team (Late st Contact Info) Description 10/03/2024 Lab Requisition [facility] - Main Lab [address] [facility] [employer] [place] [address] Antonio Mcmillan MD [address] [place] [address] [address] [place], [place] Other middle or intermediate school principal (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 Social History Tobacco Use [...] ANTIBODY Routine 10/03/2024 5:20 AM EDT Other middle or intermediate school principal (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 SST - GOLD Routine 10/03/2024 5:20 AM EDT Other middle or intermediate school principal (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 SST - GOLD Routine 10/03/2024 5:20 AM EDT Other middle or intermediate school principal (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 SST - GOLD Routine 10/03/2024 5:20 AM EDT Other shelter (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 HEPATITIS A ANTIBODY TOTAL WITH REFLEX IGM Routine 10/03/2024 5:20 AM EDT Other middle or intermediate school principal (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 LIVER FIBROSIS, FIBROTEST-ACTITEST PANEL Routine 10/03/2024 5:20 AM EDT Other shelter (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 HEPATITIS B SCREENING PANEL Routine 10/03/2024 5:20 AM EDT Other middle or intermediate school principal (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 RED - PLAIN Routine 10/03/2024 5:20 AM EDT Other middle or intermediate school principal (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 HEMOCHROMATOSIS MUTATION Routine 025 5:20 AM EDT Other middle or intermediate school principal (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 SMOOTH MUSCLE ANTIBODY IGG Routine 10/03/2024 5:20 AM EDT Other shelter (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 HEPATITIS A ANTIBODY IGM Routine 025 5:20 AM EDT Other shelter (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 ALPHA FETOPROTEIN TUMOR MARKER Routine 10/03/2024 5:20 AM EDT Other shelter (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 ANTIMITOCHONDRIAL ANTIBODY Routine 10/03/2024 5:20 AM EDT Other shelter (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 FERRITIN Routine 10/03/2024 5:20 AM EDT Other shelter (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 documented in this encounter Results * Hepatitis A antibody IgM (10/03/2024 5:20 AM EDT) Hepatitis A Antibody IgM Negative Negative LAB CHEMISTRY METHOD 10/03/2024 11:18 AM EDT [facility] Blood Venous blood specimen / Unknown 10/03/2024 5:20 AM EDT 10/03/2024 6:22 AM EDT Narrative [facility] - 10/03/2024 11:18 AM EDT Over the counter supplements containing high doses of biotin may interfere with this assay. If interference is suspected, patients shoud be retested after refraining from biotin supplements for 72 hours. us Antonio Mcmillan MD LAB BLOOD ORDERABLES Final Resul t Performing Organization Address [facility] Co de Phone Number [facility] [address] [place] [address], [place] [phone] * SST tube (10/03/2024 5:20 AM EDT) Extra Tube Hold for add-ons. 10/03/2024 8:01 AM EDT [facility] Comment:Auto resulted. Blood Venous blood specimen / Unknown 10/03/2024 5:20 AM EDT 10/03/2024 6:22 AM EDT us Antonio Mcmillan MD LAB BLOOD ORDERABLES Final Resul t Performing Organization Address [facility] Co de Phone Number [facility] [address] [place] [address], [place] [phone] * SST tube (10/03/2024 5:20 AM EDT) Extra Tube Hold for add-ons. 10/03/2024 8:01 AM EDT [facility] Comment:Auto resulted. Blood Venous blood specimen / Unknown 10/03/2024 5:20 AM EDT 10/03/2024 6:22 AM EDT us Antonio Mcmillan MD LAB BLOOD ORDERABLES Final Resul t Performing Organization Address City/[facility]/ZIP Co de Phone Number [facility] [address] [place] [address], [place] [phone] * SST tube (10/03/2024 5:20 AM EDT) Extra Tube Hold for add-ons. 10/03/2024 8:01 AM EDT [facility] Comment:Auto resulted. Blood Venous blood specimen / Unknown 10/03/2024 5:20 AM EDT 10/03/2024 6:22 AM EDT us Antonio Mcmillan MD LAB BLOOD ORDERABLES Final Resul t Performing Organization Address [facility]/ZIP Co de Phone Number [facility] [address] [place] [address], [place] [phone] * Red tube (10/03/2024 5:20 AM EDT) Pathologist [facility] [place] Extra Tube Hold for add-ons. 10/03/2024 8:01 AM EDT [facility] Comment:Auto resulted. Blood Venous blood specimen / Unknown 10/03/2024 5:20 AM EDT 10/03/2024 6:22 AM EDT us Antonio Mcmillan MD LAB BLOOD ORDERABLES Final Resul t Performing Organization Address [facility] de Phone Number [facility] [address] [place] [address], [place] [phone] * Hepatitis C antibody (10/03/2024 5:20 AM EDT) Pathologist [facility] [place] Hepatitis C Antibody Negative Negative LAB CHEMISTRY METHOD 10/03/2024 9:48 AM EDT [facility] Blood Venous blood specimen / Unknown 10/03/2024 5:20 AM EDT 10/03/2024 6:22 AM EDT us Antonio Mcmillan MD LAB BLOOD ORDERABLES Final Resul t Performing Organization Address [facility] Co de Phone Number [facility] [address] [place] [address], [place] [phone] * (ABNORMAL) Hepatitis A antibody total with reflex IgM (10/03/2024 5:20 AM EDT) Pathologist [facility] [place] Hep A Total Ab Positive( A) Negative LAB CHEMISTRY METHOD 10/03/2024 9:49 AM EDT [facility] Blood Venous blood specimen / Unknown 10/03/2024 5:20 AM EDT 10/03/2024 6:22 AM EDT Narrative [facility] - 10/03/2024 9:49 AM EDT Over the counter supplements containing high doses of biotin may interfere with this assay. If interference is suspected, patients shoud be retested after refraining from biotin supplements for 72 hours. us Antonio Mcmillan MD LAB BLOOD ORDERABLES Final Resul t Performing Organization Address [facility] de Phone Number [facility] [address] [place] [address], [place] [phone] * Hepatitis B screening panel (10/03/2024 5:20 AM EDT) [facility] Hepatitis B Surface Ag Negative Negative LAB CHEMISTRY METHOD 10/03/2024 9:49 AM EDT [facility] Hep B Core Total Ab Negative Negative LAB CHEMISTRY METHOD 10/03/2024 9:49 AM EDT [facility] Hepatitis B Surface Ab Negative Negative LAB CHEMISTRY METHOD 10/03/2024 9:49 AM EDT [facility] Blood Venous blood specimen / Unknown 10/03/2024 5:20 AM EDT 10/03/2024 6:22 AM EDT us Antonio Mcmillan MD LAB BLOOD ORDERABLES Final Resul t Performing Organization Address [facility] de Phone Number [facility] [address] [place] [address], [place] [phone] * Hemochromatosis mutation (10/03/2024 5:20 AM EDT) [facility] Hereditary Hemochromatosis See Below 10/16/2024 4:36 PM [...] results monitored by Tony Hamlin, Ph.D., FACMG, [facility], [place]. DETAILED ASSAY INFORMATION: Hereditary hemochromatosis (HH) is [...] variants in the HFE gene, C282Y (NM 635233.2: c.845G>A, p.Vzv277Gnv) and H63D (NM 303250.2: c.187C>G, p.Tzp46Yxh), that are commonly associated with HH. These [...] Health care providers, please contact your local [employer] genetic counselor or call [phone] ( ) for assistance with the interpretation of these results. This test was developed and its analytical performance characteristics have been determined by [facility] [employer] [facility]. It has not been cleared or approved by FDA. This assay has been validated pursuant to the CLIA regulations and is used for clinical purposes. For more information, please refer to http://education.[employer].com/faq/hemochromatosis. (This link is being provided for informational/educational purposes only.) A portion of the testing was [place] [facility] Reviewed and signed by Laboratory testing supervised and results monitored by Tony Hamlin, Ph.D., FACMG, HCLD, CGMB, Signed on 10/16/2024 at 10:39 Test Performed at: [facility] [address] [address] Maurilio Valdivia MD, PhD, JONAS Blood Venous blood specimen / Unknown 10/03/2024 5:20 AM EDT 10/03/2024 6:22 AM EDT us Antonio Mcmillan MD LAB MOLECULAR DIAGNOSTICS ORDERA BLES Final Result [facility] [address] [place] [address] * (ABNORMAL) Liver fibrosis, fibrotest-actitest panel (10/03/2024 5:20 AM EDT) Fibrosis Score 0.19 10/11/2024 7:39 PM EDT [facility] Fibrosis Stage F0 10/11/2024 7:39 PM EDT [facility] Fibrosis Interpretation SEE NOTE 10/11/2024 7:39 PM EDT [facility] Comment: no fibrosis Fibro Test Score (f) Metavir Score f>=0 and f<=0.21 : F0 (no fibrosis) f>0.21 [...] LAB Comment: minimal activity ActiTest Score (a) Metavir Score a>=0 and a<=0.17 : A0 (no activity) a>0.17 [...] U/L 10/11/2024 7:39 PM EDT [facility] Vklim-5-Xetlqmmjslhy n 162 106 - 279 mg/dL 10/11/2024 7:39 PM EDT [facility] Haptoglobin 135 43 - 212 mg/dL 10/11/2024 7:39 PM EDT [facility] Apolipoprotein A1 110 94 - 176 mg/dL 10/11/2024 7:39 PM EDT [facility] Reference ID [id number] 10/11/2024 7:39 PM EDT [facility] Footnote SEE NOTE 10/11/2024 7:39 PM EDT [facility] Comment: The reliability of results is dependent on compliance with the preanalytical and analytical conditions recommended by [employer]. The tests have to be deferred for: [...] The performance characteristics have been determined by [facility]. It has not been cleared or approved by the U.S. Food and Drug Administration. Performance characteristics refer to the analytical performance of the test. [employer], the associated logo, [employer] and all associated [employer] pablo are the registered trademarks of [employer]. All third democrat pablo - (R) and (TM) - are the property of their respective owners. (C) 9622-0803 [employer]. All rights reserved. Test Performed at: [facility] [address] [place] [phone] Maurilio Valdivia MD, PhD, JONAS Blood Venous blood specimen / Unknown 10/03/2024 5:20 AM EDT 10/03/2024 6:22 AM EDT us Antonio Mcmillan MD LAB BLOOD ORDERABLES Final Resul t [facility] [address] [place] [address] * Antimitochondrial antibody (10/03/2024 5:20 AM EDT) Mitochondrial Antibody Quantitative 10.6 <=20.0 units LAB CHEMISTRY METHOD 10/03/2024 11:42 AM EDT [facility] Mitochondrial Antibody Qualitative Negative Negative LAB CHEMISTRY METHOD 10/03/2024 11:42 AM EDT [facility] Blood Venous blood specimen / Unknown 10/03/2024 5:20 AM EDT 10/03/2024 6:22 AM EDT us Antonio Mcmillan MD LAB BLOOD ORDERABLES Final Resul t [facility] [address] [place] [address], [place] [phone] * Alpha fetoprotein tumor marker (10/03/2024 5:20 AM EDT) Pathologist [facility] [place] AFP <2.5 0.0 - 8.0 ng/mL LAB CHEMISTRY METHOD 10/03/2024 9:08 AM EDT [facility] Blood Venous blood specimen / Unknown 10/03/2024 5:20 AM EDT 10/03/2024 6:22 AM EDT Narrative [facility] - 10/03/2024 9:08 AM EDT The Siemens Advia Briefcaseaur Chemiluminescent Immunoassay is used. Results obtained with different assay methods or kits cannot be used interchangeably. Results cannot be interpreted as absolute evidence of the presence or absence of malignant disease. us Antonio Mcmillan MD LAB BLOOD ORDERABLES Final Resul t Performing Organization Address [facility] Co de Phone Number [facility] [address] [place] [address], [place] [phone] * Smooth muscle antibody IgG (10/03/2024 5:20 AM EDT) [facility] Smooth Muscle (F-Actin) IgG Ab 9 <20 UNITS 10/08/2024 1:56 PM EDT [facility] Comment: Interpretation: Negative Test performed at [facility], [address], [place] [address] Elizabeth Huertas MD, PhD - Ur Coordinator Blood Venous blood specimen / Unknown 10/03/2024 5:20 AM EDT 10/03/2024 6:22 AM EDT us Antonio Mcmillan MD LAB BLOOD ORDERABLES Final Resul t Performing Organization Address [facility]/ZIP Co de Phone Number [facility] [address] [place] [address] * Ferritin (10/03/2024 5:20 AM EDT) Ferritin 43 26 - 388 ng/mL LAB CHEMISTRY METHOD 10/03/2024 6:55 AM EDT [facility] Blood Venous blood specimen / Unknown 10/03/2024 5:20 AM EDT 10/03/2024 6:22 AM EDT us Antonio Mcmillan MD LAB BLOOD ORDERABLES Final Resul t [facility] [address] [place] [address], [place] [phone] documented in this encounter Visit Diagnoses Diagnosis Other middle or intermediate school principal (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 documented in this encounter Care Teams Smoke Tester Relationship Specialty Start Date End Date Antonio Mcmillan MD [address] [place] [address] [address] [place] PCP - General Internal Medicine 08/10/24 documented as of this encounter
--- OUTSIDE RECORDS SUMMARY | 2025-01-28 16:02 | XMS_ITS ---
Author Name [facility]ISP Organization Unknown Results Test Name/Text Value Interpretation Date Range Source Sodium SerPl-sCnc 142.0 mmol/L Normal 02/21/2024 136 - 14 5 [facility] HCO3 SerPl-sCnc 30.0 mmol/L Normal 02/21/2024 21 - 32 [facility] Calcium SerPl-mCnc 9.8 mg/dL Normal 02/21/2024 8.5 - 10.1 [facility] GFR/BSA.pred SerPlBld BXE-AYE-LaEUtb >60.0 mL/min/1.73m2 Normal 02/21/2024 - [facility] Creat SerPl-mCnc 0.85 mg/dL Normal 02/21/2024 0.7 - 1.3 [facility] Glucose SerPl-mCnc 81.0 mg/dL Normal 02/21/2024 65 - 110 [facility] Potassium SerPl-sCnc 4.1 mmol/L Normal 02/21/2024 3.5 - 5 .1 [facility] Chloride SerPl-sCnc 106.0 mmol/L Normal 02/21/2024 98 - 1 07 [facility] BUN SerPl-mCnc 9.0 mg/dL Normal 02/21/2024 7 - 18 [facility] Anion Gap3 SerPl-sCnc 6.0 mmol/L Normal 02/21/2024 5 - 15 [facility] CK SerPl-cCnc 312.0 U/L Above high normal 02/21/2024 39 - 30 8 [facility] MCHC RBC Auto-mCnc 31.5 g/dL Normal 02/21/2024 31 - 36 [facility] Basophils/leuk NFr Bld Auto 0.4 % Normal 02/21/2024 0 - 1.4 [facility] Neutrophils/leuk NFr Bld Auto 43.8 % Normal 02/21/2024 39 - 72 [facility] Hct VFr Bld Auto 45.7 % Normal 02/21/2024 38.5 - 50 [facility] Hgb Bld-mCnc 14.4 g/dL Normal 02/21/2024 13.2 - 17.1 [facility] Lymphocytes # Bld Auto 2.31 x 1000/uL Normal 02/21/2024 0.6 - 3.7 [facility] MCH RBC Qn Auto 29.4 pg Normal 02/21/2024 27 - 33 [facility] RBC # Bld Auto 4.9 M/uL Normal 02/21/2024 4 - 6 [facility] PMV Bld Auto 9.3 fL Normal 02/21/2024 8 - [address] Basophils # Bld Auto 0.02 x 1000/uL Normal 02/21/2024 0 - 1 [facility] RDW RBC Auto-Rto 12.6 % Normal 02/21/2024 11 - 15 [facility] Monocytes/leuk NFr Bld Auto 7.5 % Normal 02/21/2024 4 - 12 [facility] nRBC # Bld Auto 0.0 x 1000/uL Normal 02/21/2024 0 - 1 [facility] Platelet # Bld Auto 188.0 x1000/uL Normal 02/21/2024 150 - 420 [facility] Eosinophil # Bld Auto 0.06 x 1000/uL Normal 02/21/2024 0 - 1 [facility] Neutrophils # Bld Auto 2.17 x 1000/uL Normal 02/21/2024 2 - 7.6 [facility] Monocytes # Bld Auto 0.37 x 1000/uL Normal 02/21/2024 0 - 1 [facility] Imm Granulocytes/leuk NFr Bld Auto 0.4 % Normal 02/21/2024 0 - 1 [facility] Imm Granulocytes # Bld Auto 0.02 x 1000/uL Normal 02/21/2024 0 - 0.3 [facility] Lymphocytes/leuk NFr Bld Auto 46.7 % Normal 02/21/2024 17 - 50 [facility] MCV RBC Auto 93.3 fL Normal 02/21/2024 80 - [address] WBC # Bld Auto 5.0 x1000/uL Normal 02/21/2024 4 - 11 [facility] WBC Bld Auto-Rto 0.0 % Normal 02/21/2024 0 - 1 [facility] Eosinophil/leuk NFr Bld Auto 1.2 % Normal 02/21/2024 0 - 5 [facility] CK SerPl-cCnc 440.0 U/L Above high normal 02/20/2024 39 - 30 8 [facility] CK SerPl-cCnc 835.0 U/L Above high normal 02/19/2024 39 - 30 8 [facility] Prealb SerPl Neph-mCnc 34.1 mg/dL Normal 02/18/2024 20 - 40 [facility] TSH SerPl DL<=0.005 mIU/L-aCnc 2.19 uIU/mL Normal 02/18/2024 0.36 - 3.74 [facility] CK SerPl-cCnc 1070.0 U/L Above high normal 02/18/2024 39 - 3 08 [facility] LDLc SerPl Calc-mCnc 161.0 mg/dL Above high normal 4 - [facility] HDLc SerPl-mCnc 38.0 mg/dL Below low normal 02/18/2024 - [facility] Cholest SerPl-mCnc 243.0 mg/dL Above high normal 02/18/2024 - [facility] Trigl SerPl-mCnc 235.0 mg/dL Above high normal 02/18/2024 - [facility] Bilirub Direct SerPl-mCnc 0.16 mg/dL Normal 02/18/2024 0 - 0.2 [facility] Magnesium SerPl-mCnc 1.9 mg/dL Normal 02/18/2024 1.6 - 2. 6 [facility] Phosphate SerPl-mCnc 2.8 mg/dL Normal 02/18/2024 2.5 - 4. 9 [facility] Glucose SerPl-mCnc 135.0 mg/dL Above high normal 02/18/2024 65 - 110 [facility] Bilirub SerPl-mCnc 0.7 mg/dL Normal 02/18/2024 - 1 [facility] Creat SerPl-mCnc 0.99 mg/dL Normal 02/18/2024 0.7 - 1.3 [facility] Calcium SerPl-mCnc 9.1 mg/dL Normal 02/18/2024 8.5 - 10.1 [facility] ALT SerPl w/o P-5'-P-cCnc 163.0 U/L Above high normal 02/18/2024 16 - 61 [facility] HCO3 SerPl-sCnc 30.0 mmol/L Normal 02/18/2024 21 - 32 [facility] Chloride SerPl-sCnc 108.0 mmol/L Above high normal 4 98 - 107 [facility] Prot SerPl-mCnc 7.3 g/dL Normal 02/18/2024 6.4 - 8.2 [facility] Sodium SerPl-sCnc 143.0 mmol/L Normal 02/18/2024 136 - 14 5 [facility] ALP SerPl-cCnc 62.0 U/L Normal 02/18/2024 45 - 117 [facility] BUN SerPl-mCnc 10.0 mg/dL Normal 02/18/2024 7 - 18 [facility] Anion Gap3 SerPl-sCnc 5.0 mmol/L Normal 02/18/2024 5 - 15 [facility] AST SerPl w P-5'-P-cCnc 129.0 U/L Above high normal 02/18/2024 15 - 37 [facility] Potassium SerPl-sCnc 3.9 mmol/L Normal 02/18/2024 3.5 - 5 .1 [facility] GFR/BSA.pred SerPlBld ZFX-TDX-AiDVev >60.0 mL/min/1.73m2 Normal 02/18/2024 - [facility] Albumin SerPl BCG-mCnc 3.5 g/dL Normal 02/18/2024 3.4 - 5 [facility] Globulin Plas-mCnc 3.8 g/dL Normal 02/18/2024 2.5 - 5 [facility] Hgb Bld-mCnc 13.6 g/dL Normal 02/18/2024 13.2 - 17.1 [facility] Eosinophil/leuk NFr Bld Auto 0.5 % Normal 02/18/2024 0 - 5 [facility] Basophils/leuk NFr Bld Auto 0.2 % Normal 02/18/2024 0 - 1.4 [facility] Eosinophil # Bld Auto 0.03 x 1000/uL Normal 02/18/2024 0 - 1 [facility] Neutrophils # Bld Auto 3.98 x 1000/uL Normal 02/18/2024 2 - 7.6 [facility] nRBC/100 WBC Bld Auto-Rto 0.0 % Normal 02/18/2024 0 - 1 [facility] PMV Bld Auto 9.2 fL Normal 02/18/2024 8 - [address] nRBC # Bld Auto 0.0 x 1000/uL Normal 02/18/2024 0 - 1 [facility] MCH RBC Qn Auto 29.5 pg Normal 02/18/2024 27 - 33 [facility] Basophils # Bld Auto 0.01 x 1000/uL Normal 02/18/2024 0 - 1 [facility] Hct VFr Bld Auto 43.1 % Normal 02/18/2024 38.5 - 50 [facility] Imm Granulocytes # Bld Auto 0.03 x 1000/uL Normal 02/18/2024 0 - 0.3 [facility] Imm Granulocytes/leuk NFr Bld Auto 0.5 % Normal 02/18/2024 0 - 1 [facility] Monocytes/leuk NFr Bld Auto 6.6 % Normal 02/18/2024 4 - 12 [facility] Neutrophils/leuk NFr Bld Auto 62.0 % Normal 02/18/2024 39 - 72 [facility] RBC # Bld Auto 4.61 M/uL Normal 02/18/2024 4 - 6 [facility] RDW RBC Auto-Rto 13.1 % Normal 02/18/2024 11 - 15 [facility] WBC # Bld Auto 6.4 x1000/uL Normal 02/18/2024 4 - 11 [facility] Lymphocytes # Bld Auto 1.93 x 1000/uL Normal 02/18/2024 0.6 - 3.7 [facility] MCV RBC Auto 93.5 fL Normal 02/18/2024 80 - [address] Lymphocytes/leuk NFr Bld Auto 30.2 % Normal 02/18/2024 17 - 50 [facility] Platelet # Bld Auto 182.0 x1000/uL Normal 02/18/2024 150 - 420 [facility] Monocytes # Bld Auto 0.42 x 1000/uL Normal 02/18/2024 0 - 1 [facility] MCHC RBC Auto-mCnc 31.6 g/dL Normal 02/18/2024 31 - 36 [facility] BKR REFLEX URINE CULTURE See Comment Normal 02/18/2024 [facility] WBC #/area UrnS Auto <1.0 /HPF Normal 02/18/2024 0 - 5 [facility] Hyaline Casts #/area UrnS 1.0 /LPF Normal 02/18/2024 0 - 3 [facility] RBC #/area UrnS Auto 1.0 /HPF Normal 02/18/2024 0 - 2 [facility] Ketones Ur Strip.auto-mCnc Negative Normal 02/18/2024 - [facility] Nitrite Ur Ql Strip.auto Negative Normal 02/18/2024 - [facility] Bilirub Ur Ql Strip.auto Negative Normal 02/18/2024 - [facility] Prot Ur Strip.auto-mCnc 1+ Abnormal 02/18/2024 - [facility] WBC # Ur Strip Negative Normal 02/18/2024 - [facility] Glucose Ur Strip.auto-mCnc Negative Normal 02/18/2024 - [facility] Sp Gr Ur Refract.auto 1.022 Normal 02/18/2024 1.005 - 1.03 [facility] Color Ur Auto Yellow Normal 02/18/2024 - [facility] Urobilinogen Ur Strip-mCnc <2.0 mg/dL Normal 02/18/2024 - [facility] Clarity Ur Refract.auto Clear Normal 02/18/2024 - [facility] Hgb Ur Ql Strip.auto Negative Normal 02/18/2024 - [facility] pH Ur Strip.auto 6.5 Normal 02/18/2024 5.5 - 7.5 [facility] Lactate SerPl-sCnc 2.0 mmol/L Normal 02/17/2024 0.4 - 2 [facility] levETIRAcetam SerPl-mCnc 24.3 ug/mL Normal 02/17/2024 12 - 46 [facility] Prolactin SerPl 3rd IS-aCnc 8.0 ng/mL Normal 02/17/2024 2.1 - 17.7 [facility] Valproate SerPl-mCnc 96.0 ug/mL Normal 02/17/2024 50 - 10 0 [facility] Glucose SerPl-mCnc 137.0 mg/dL Above high normal 02/17/2024 65 - 110 [facility] Calcium SerPl-mCnc 9.8 mg/dL Normal 02/17/2024 8.5 - 10.1 [facility] Prot SerPl-mCnc 8.2 g/dL Normal 02/17/2024 6.4 - 8.2 [facility] GFR/BSA.pred SerPlBld QGU-XWU-MsLVze >60.0 mL/min/1.73m2 Normal 02/17/2024 - [facility] Bilirub SerPl-mCnc 0.6 mg/dL Normal 02/17/2024 - 1 [facility] ALP SerPl-cCnc 85.0 U/L Normal 02/17/2024 45 - 117 [facility] BUN SerPl-mCnc 12.0 mg/dL Normal 02/17/2024 7 - 18 [facility] Globulin Plas-mCnc 4.3 g/dL Normal 02/17/2024 2.5 - 5 [facility] Creat SerPl-mCnc 0.99 mg/dL Normal 02/17/2024 0.7 - 1.3 [facility] ALT SerPl w/o P-5'-P-cCnc 192.0 U/L Above high normal 02/17/2024 16 - 61 [facility] AST SerPl w P-5'-P-cCnc 154.0 U/L Above high normal 02/17/2024 15 - 37 [facility] Sodium SerPl-sCnc 138.0 mmol/L Normal 02/17/2024 136 - 14 5 [facility] HCO3 SerPl-sCnc 26.0 mmol/L Normal 02/17/2024 21 - 32 [facility] Potassium SerPl-sCnc 3.7 mmol/L Normal 02/17/2024 3.5 - 5 .1 [facility] Chloride SerPl-sCnc 103.0 mmol/L Normal 02/17/2024 98 - 1 07 [facility] Anion Gap3 SerPl-sCnc 9.0 mmol/L Normal 02/17/2024 5 - 15 [facility] Albumin SerPl BCG-mCnc 3.9 g/dL Normal 02/17/2024 3.4 - 5 [facility] Platelet # Bld Auto 167.0 x1000/uL Normal 02/17/2024 150 - 420 [facility] Neutrophils # Bld Auto 4.01 x 1000/uL Normal 02/17/2024 2 - 7.6 [facility] Hct VFr Bld Auto 45.7 % Normal 02/17/2024 38.5 - 50 [facility] Monocytes # Bld Auto 0.46 x 1000/uL Normal 02/17/2024 0 - 1 [facility] MCHC RBC Auto-mCnc 33.5 g/dL Normal 02/17/2024 31 - 36 [facility] Lymphocytes/leuk NFr Bld Auto 32.9 % Normal 02/17/2024 17 - 50 [facility] RDW RBC Auto-Rto 12.7 % Normal 02/17/2024 11 - 15 [facility] Hgb Bld-mCnc 15.3 g/dL Normal 02/17/2024 13.2 - 17.1 [facility] Basophils # Bld Auto 0.01 x 1000/uL Normal 02/17/2024 0 - 1 [facility] nRBC # Bld Auto 0.0 x 1000/uL Normal 02/17/2024 0 - 1 [facility] Eosinophil # Bld Auto 0.02 x 1000/uL Normal 02/17/2024 0 - 1 [facility] nRBC/100 WBC Bld Auto-Rto 0.0 % Normal 02/17/2024 0 - 1 [facility] Basophils/leuk NFr Bld Auto 0.1 % Normal 02/17/2024 0 - 1.4 [facility] WBC # Bld Auto 6.7 x1000/uL Normal 02/17/2024 4 - 11 [facility] PMV Bld Auto 9.7 fL Normal 02/17/2024 8 - [address] Imm Granulocytes/leuk NFr Bld Auto 0.3 % Normal 02/17/2024 0 - 1 [facility] Monocytes/leuk NFr Bld Auto 6.8 % Normal 02/17/2024 4 - 12 [facility] MCV RBC Auto 90.7 fL Normal 02/17/2024 80 - [address] Imm Granulocytes # Bld Auto 0.02 x 1000/uL Normal 02/17/2024 0 - 0.3 [facility] Neutrophils/leuk NFr Bld Auto 59.6 % Normal 02/17/2024 39 - 72 [facility] RBC # Bld Auto 5.04 M/uL Normal 02/17/2024 4 - 6 [facility] Eosinophil/leuk NFr Bld Auto 0.3 % Normal 02/17/2024 0 - 5 [facility] Lymphocytes # Bld Auto 2.22 x 1000/uL Normal 02/17/2024 0.6 - 3.7 [facility] MCH RBC Qn Auto 30.4 pg Normal 02/17/2024 27 - 33 [facility] Problems Problem Status Onset Date Problem Type Date of Resoluti on Source Seizure active 2024-02-17 [facility] Encounters Encounter Type Encounter Reason Primary Diagnosis Location Date Inpatient Other convulsions Other convulsions [facility] 02/17/2024 Care Team Organization Name Specialty Phone Email Start Date End Da catherine [facility] LILIAN OCONNELL Primary Care 02/17/2024 [facility]
--- OUTSIDE RECORDS SUMMARY | 2025-01-28 16:02 | XMS_ITS | Data Portability ---
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 Plan of Treatment Reminders Order Date Submit Date Provider Last Modified By Organization Details Last Modified Time Details Appointments None recorded . Lab None recorded . Referral None recorded . Procedures None recorded . Surgeries None recorded . Imaging XR, shoulder , 2 or more view - Room 3 please 023 09/04/19 23 [facility] [address], [address], [place], [address], 12:54:13 Medication Orders None recorded . Patient [...] Exam Date: 2022 Orderi ng Provid er: [id number] [facility] [address], [place], [address], 09/03/2022 16:20:38 Result Notes Documentation Provider Name and Address Organization Details Recorded Time Xr, Shoulder, 2 Or More View : TRUE AP/SCAPULAR Y/AX XR SHOULDER 3V [facility] Patient Name: RANJANA SOTO Date of : 1985 Exam Date: 09/03/2022 Ordering Provider: [id number] Mani Morton MD [address], [place], [address], [facility] 09/03/2022 16:20:38 Problems Name Problem SNOMED Code Status Onset Date Resolution Date Notes Provider Name and Address Organization Details Recorded Time Brachial plexopathy of right upper limb 1698111938702 9103 Active 2022 Mani Morton MD [address], [place], [address], [facility] 14:19:54 Problem Notes None recorded. Medical Equipment None Reported. Allergies Allergen ID Allergen Name Allergen Category Reaction Reaction Severity Criticality Documentation Date Start Date Code Code System Note Provider Name and Address Organization Details Recorded Time 171926 Zoloft medicatio n dizziness Not available Not available 09/03/2022 07312 RxNorm Yvette Roy null, [facility] 3 11:50:17 Medications Name Sig Start [...] Updated DateTime 09/03/2022 165.1 cm 29.1 kg/m2 49501.66 g Yvette Roy [facility] 09/03/2022 11:49:57 Social History Question Answer Notes LastModified by Organizat ion Details LastModified Time Tobacco Smoking Status Never Smoker Yvette law [facility] 09/03/2022 11:50:53 How Much Alcohol Do You [...] SNOMED-CT Code Diagnosis ICD10 Code Diagnosis Note [id number] MD Cynthia Ballard [facility] 1 Cynthia Srinivasan [facility] [place] [id number] 09/03/2022 11:24:47 09/03/2022 12:21:14 Pain of right shoulder joint 4048170471 2853637 M25.511 Brachial p lexopathy of right upper limb [id number] 9065367 G54.0 he has a severe right upper [...] Name 09/02/2022 1 [place] Ranjana Soto [id number] Ranjana Soto 08/19/2022 1 [facility] (MEDICAID REPLACEMENT - HMO) [id number] Ranjana [address]Sto [id number] Ranjana Soto 08/19/2022 1 [facility] (MEDICAID REPLACEMENT - HMO) [id number] Ranjana Soto [id number] Ranjana Soto
--- OUTSIDE RECORDS SUMMARY | 2025-01-28 16:02 | XMS_ITS | Clinical Summary ---
Author Organization [address] Address [address] [place] [address] Phone Care Team Providers Care Practical Nurse Name Role Phone Antonio Mcmillan DO Primary Care Provider [phone] Allergies No known active allergies Medications acetaminophen [...] In the past 12 months has e AFTER-MOUSE, gas, oil, or water [employer] threatened to shut off services in your [...] MEDICAID [place] on file [facility] at [address] [id number] Advance Directives * Full Code (Latest Code Status on File) Date Activated Date Inactivated Comments 02/17/2024 5:24 PM 02/21/2024 2:32 PM Question Answer Comments With Whom was the Code Status Discussed? Patient Care Teams Practical Nurse Relationship Specialty Start Date End Date Antonio Mcmillan DO [address] [place] [address] PCP - General Internal Medicine 02/17/24
[2025-01-28 17:10] VITALS: BP 128/88; PULSE 101; RESP 18; TEMP 37.1; O2SAT 97
[2025-01-28] MEDS: iohexoL 350 MG/ML 100 ML INFUS..BTL IV (17:39)
[2025-01-28 18:14] LABS: Appearance Urine Clear; Glucose Urine UA 250 mg/dL (Negative); PH 6.5 (5.0-9.0); Specific Gravity - Urine >= 1.030 (1.005-1.025); UMIC TRIGGER UACC YES
--- NOTE | 2025-01-28 19:00 | PC.NURSE ---
Pt reporting symptoms are starting to resolve, Pt asking for PO intake, given milk and pudding at this time. Pt DC is in, EMS to be booked back to [facility] at this time. US line placed by CHANDLER for CT.
--- NOTE | 2025-01-28 19:08 | PC.NURSE ---
this rn assumed care of pt, pt assisted to sit up in bed and provided with pudding and milk per request, ems booked for transport to [facility]
--- NOTE | 2025-01-28 19:36 | PC.NURSE ---
report given to Karine BLAIR at [facility]
[2025-01-28 19:39] VITALS: BP 132/78; PULSE 99; RESP 17; TEMP 36.8; O2SAT 97
--- NOTE | 2025-01-28 19:47 | PC.NURSE ---
ems at bedside for transport
[2025-01-28 19:48] VITALS: BP 132/78; PULSE 99; RESP 17; TEMP 36.8; O2SAT 97
== END 2025-01-28 19:48 | disposition home or self-care (01) ==
PROVIDERS: Emergency Provider Emergency Medicine
DX: R10.84 Generalized abdominal pain (principal); K12.0 Recurrent oral aphthae; I10 Essential (primary) hypertension; R09.02 Hypoxemia; Z99.81 Dependence on supplemental oxygen
CPT/HCPCS: 36415; 74177; 80053; 81001; 83690; 83735; 85025; 99284; Q9967

== ENCOUNTER → 2025-01-28 15:36 | Outpatient (BNV) | payer MEDICAID, SELFPAY | PROVIDERS: Emergency Provider Emergency Medicine; Visit Provider Radiology Diagnostic Radiology | DX: R16.0 Hepatomegaly, not elsewhere classified (principal) | CPT/HCPCS: 74177 ==

== ENCOUNTER 2025-02-12 13:02 | Outpatient (REF) | payer MEDICAID, SELFPAY ==
[2025-02-12 17:10] LABS: Hemoglobin A1C 356.7939 umol/L; Total Hemoglobin (HGBA1C) 4211.4225 umol/L
[2025-02-18 01:48] LABS: FIB-ALT 109 U/L (9-46); FIB-Alpha-2-Macroglobulin 185 mg/dL (106-279); FIB-Apolipoprotein A1 144 mg/dL (94-176); FIB-GGT 286 U/L (3-90); FIB-Haptoglobin 112 mg/dL (43-212); FIB-Total Bilirubin 0.3 mg/dL (0.2-1.2); Liver Fibrosis Score 0.26; Liver Fibrosis Stage F0-F1; Nec Inflam Act Grade A2; Nec Inflam Act Score 0.59
== END 2025-02-12 13:03 | disposition home or self-care (01) ==
LOC: HO.LAB 13:02
PROVIDERS: PCP Hospitalist; Visit Provider Nurse Practitioner
DX: E66.01 Morbid (severe) obesity due to excess calories (principal); R73.9 Hyperglycemia, unspecified; R74.01 Elevation of levels of liver transaminase levels; Z68.41 Body mass index [BMI] 40.0-44.9, adult
CPT/HCPCS: 36415; 81256; 81596; 82390; 83036; 84443; 99212

== ENCOUNTER 2025-02-12 13:02 | Outpatient (AMB) | payer MEDICAID, SELFPAY ==
--- NOTE | 2025-02-12 13:14 | A.OFFVIS_ITS ---
Vital Signs 02/12/25 13:38 Height 5 ft 2 in Weight 162 lb BMI 29.6 BP 116/74 Blood Pressure Location Lt brachial Position Sitting Pulse 82 Pulse Oximetry (%) 96 Oxygen Delivery Method Room Air Intake Visit Reasons: Follow up r/s 12/12/24 R/S from 01/03/25 Intake Note: Patient follow up for Elevated ferritin Patient cc: diarrhea and acid reflux. Regional Climate Change Analyst Required: No Accompanied by: Family/Other Allergies amoxicillin Allergy (Verified 02/12/25 13:14) Anaphylaxis sertraline (From Zoloft) Allergy (Verified 02/12/25 13:14) Anaphylaxis HPI HPI Follow up r/s 12/12/24 R/S from 01/03/25: Details: Assessment & Plan (1) Transaminitis: Comment: BASELINE LABS 06/13/2306/28/24 06:1316:19 WBC 6.8 Hgb 15.1 Hct 45.0 Plt Count 162 Estimated GFR > 60 Total Bilirubin 0.5 AST 100 H ALT 120 H Alkaline Phosphatase 66 HIV 1&2 Ab/P24 Ag 4thGn Nonreactive Anti-Mitochondrial Ab NEGATIVE Anti-Smooth Muscle Ab <20 Hepatitis A IgM Ab Nonreactive Hep Bs Antigen Negative Hep Bs Antibody NONREACTIVE Hep B Core Total Ab Nonreactive Hepatitis C Ab (EIA) Nonreactive Ferritin 305 H CURRENT LABS Laboratory Tests 03/08/2401/18/25 15:1011:07 Estimated GFR > 60 Ferritin 305 H Total Bilirubin 0.4 AST 71 H ALT 89 H Alkaline Phosphatase 70 Anti-Mitochondrial Ab NEGATIVE Anti-Smooth Muscle Ab <20 Hepatitis A IgM Ab Nonreactive Hep Bs Antigen Negative Hep Bs Antibody NONREACTIVE Hep B Core Total Ab Nonreactive Hepatitis C Ab (EIA) Nonreactive ULTRASOUND OF THE ABDOMEN 05/01/2024 FINDINGS: PANCREAS: Poorly visualized ABDOMINAL AORTA: Poorly visualized INFERIOR VENA CAVA: Poorly visualized LIVER: Increased hepatic parenchymal heterogeneity and echogenicity could be associated with hepatocellular disease/hepatic steatosis and substantially limits visualization. Correlation with liver function tests and clinical exam recommended to determine further management. GALLBLADDER: No gallstones. No gallbladder wall thickening. COMMON BILE DUCT: Not visualized. RIGHT KIDNEY: No hydronephrosis. No renal calculi. Limited visualization. The kidney measures 9.9 cm in maximum dimension. LEFT KIDNEY: No hydronephrosis. No renal calculi. Limited visualization. The kidney measures 11.3 cm in maximum dimension. SPLEEN: Normal. The spleen measures 10.3 cm in maximum dimension. FREE FLUID: None. US/US abdomen complete IMPRESSION: 1. Increased hepatic parenchymal heterogeneity and echogenicity could be associated with hepatocellular disease/hepatic steatosis and substantially limits visualization. Correlation with liver function tests and clinical exam recommended to determine further management. 2. Previously identified gallstones are not appreciated, although visualization is limited due to bowel gas and body cristina Code(s): R74.01 - Elevation of levels of liver transaminase levels Category: Medical (2) Elevated ferritin: Code(s): R79.89 - Other specified abnormal findings of blood chemistry Category: Medical Plan He is here today with a staff member who is noncontributory. I reviewed the results and most likely he has fatty liver since he has central obesity and I did sexual assault counsellor him that he will need to work on weight loss to best protect the health of his liver. However, he also has not elevated ferritin so I think we need to do a hemochromatosis screen and I will also get a liver fibrosis panel to get better staging of his liver disease. Return office visit next available Orders: Orders DNA Analysis Hemochromatosis Today R74.01 - Elevation of levels of liver transaminase levels, R79.89 - Other specified abnormal findings of blood chemistry Liver Fibrosis Pnl Today R74.01 - Elevation of levels of liver transaminase levels, R79.89 - Other specified abnormal findings of blood chemistry LABS: Laboratory Tests 01/28/25 15:27 WBC 7.5 Hgb 15.3 Hct 45.6 Plt Count 169 Random Glucose 216 H Total Bilirubin 0.4 AST 111 H ALT 133 H Alkaline Phosphatase 93 Fibrosis panel from [facility] is F0 Hemochromatosis screen negative TODAY'S VISIT The patient is here today with a member of his intermediate staff. Transaminases worsening from double to triple digit in January. So far no autoimmune process, no infectious process, elevated ferritin but a negative hemochromatosis genetic screen. I do note several incidents of hyperglycemia and I wonder if he may be diabetic. I am going to get a hemoglobin A1c, recheck the thyroid and a ceruloplasmin to exclude anymore distant possibilities. He has marked central adiposity and does need weight loss. Return office visit in 6 weeks [facility] Medical History Supplemental oxygen dependent Hypertension Hypoxia Asthma Chronic anticoagulation History of acute respiratory failure Aspiration pneumonia Acute and chronic respiratory failure with hypoxia Rhabdomyolysis Hypernatremia Pneumonia Epileptic seizure Acute hypoxic respiratory failure Pneumonia Psychogenic nonepileptic seizure Seizure disorder TBI (traumatic brain injury) Social History Household Members: Other Housing: Long Term Housing Other:: [facility] Do you presently have visiting nurse or other home services: No Alcohol intake: never Patient Tobacco Use Status: Never used Tobacco e-Cigarette/Vaping Use: Never Used Advance Directives Date on File: 05/07/23 service: No Review of Systems Const Denies fatigue, Denies fever(s), Denies night sweats, Denies poor appetite and Denies weight loss ENT Reports Normal hearing present, Denies dental pain, Denies dysphagia, Denies hearing loss, Denies mouth pain, Denies odynophagia, Denies throat swelling, Denies tongue swelling and Reports other (Dentition adequate) Card Reports no additional complaints Resp Reports no additional complaints GI Details: Denies abdominal pain, Denies melena, Denies bloating, Denies hematochezia, Denies constipation, Denies GI cramping, Denies dysphagia, Denies excessive flatus, Denies early satiety, Denies heartburn, Denies diarrhea, Denies nausea, Denies odynophagia, Denies vomiting and Denies hematemesis Skin/Breast Denies pruritus, Denies lesions, Denies rash and Denies jaundice Neuro Reports Normal hearing present and Denies Abnormal speech present Endo Denies fatigue Aller/Immun Denies throat swelling and Denies tongue swelling Physical Exam Vital Signs: Last Vital Signs Pulse 82 02/12/25 13:38 BP 116/74 02/12/25 13:38 Pulse Ox 96 02/12/25 13:38 Oxygen Delivery Method Room Air 02/12/25 13:38 BMI result Body Mass Index 29.6 Const General: cooperative, no acute distress, well developed and well groomed Nutritional Appearance: well nourished and obese centrally obese Orientation/consciousness: oriented to person, oriented to place and oriented to time Limitations: No language barrier and other limitations (Low cognitive function) HEENT Head: Yes normocephalic and Yes atraumatic Eyes General: appearance normal, both eyes and all related structures Pupils: Equal, round and reactive pupils present Neck Neck: Yes normal visual inspection and Yes no lymphadenopathy Thyroid: Thyroid normal Resp Effort & Inspection: normal respiratory effort and able to speak in complete sentences Auscultation: clear to auscultation bilaterally Cardio Rate: regular rate Rhythm: regular rhythm Heart sounds: Normal, physiologic split S2 sound present Peripheral pulses: radial pulses present and posterior tibial pulses present GI Inspection: No distended, No Abdominal panniculus present and Yes obesity Palpation (GI): Soft to palpation, nontender, no guarding, not rigid and No hepatosplenomegaly present Percussion: Yes normal to percussion Auscultation: normal bowel sounds Rectal Exam - Male: Yes deferred Skin General skin exam: no rashes or lesions noted, turgor normal, skin not dry, no jaundice, No spider nevi and no striae Rashes: no rashes Nails: normal Neuro General: oriented to person, oriented to place and oriented to time Cranial nerves: Yes Equal, round and reactive pupils present and Yes Normal hearing present Speech: No Abnormal speech present Extrem General: Yes normal to inspection, No clubbing, No cyanosis and No edema Psych Appearance: grossly normal and well kempt Mental Status: other Speech and movement: Normal speech and movement present Affect: normal affect Attitude: cooperative Thought process: not confabulating and Impoverished thought process present Thought content: Normal thought content present Insight: Poor insight present (Psych) Judgement: Poor judgement present (Psych) Assessment & Plan Assessment & Plan (1) Morbid obesity with BMI of 40.0-44.9, adult: Code(s): E66.01 - Morbid (severe) obesity due to excess calories; Z68.41 - Body mass index [BMI] 40.0-44.9, adult Category: Medical (2) Transaminitis: Comment: BASELINE LABS 06/13/2306/28/24 06:1316:19 WBC 6.8 Hgb 15.1 Hct 45.0 Plt Count 162 Estimated GFR > 60 Total Bilirubin 0.5 AST 100 H ALT 120 H Alkaline Phosphatase 66 HIV 1&2 Ab/P24 Ag 4thGn Nonreactive Anti-Mitochondrial Ab NEGATIVE Anti-Smooth Muscle Ab <20 Hepatitis A IgM Ab Nonreactive Hep Bs Antigen Negative Hep Bs Antibody NONREACTIVE Hep B Core Total Ab Nonreactive Hepatitis C Ab (EIA) Nonreactive Ferritin 305 H Hemochromatosis genetic screen was negative (performed at [facility]) Fibrosis panel is F-0 (performed at [facility]) The patient does not drink alcohol CURRENT LABS 01/28/2025 15:27 WBC 7.5 Hgb 15.3 Hct 45.6 Plt Count 169 Random Glucose 216 H Total Bilirubin 0.4 AST 111 H ALT [address] ABDOMEN PELVIS 01/28/2025 Findings: Atelectasis with more ill-defined dense consolidations in the right lung. Hepatomegaly with steatosis. Possible focal fatty sparing along the gallbladder fossa. No urolithiasis. No bowel obstruction, pneumoperitoneum, or pneumatosis. Supra and periumbilical fat containing hernias. Normal appendix. The bones are intact. Right femoral intramedullary robin. IMPRESSION: Atelectasis with more ill-defined dense consolidations in the right lung. Pneumonia not excluded. No acute intra abdominopelvic pathology. Code(s): R74.01 - Elevation of levels of liver transaminase levels Category: Medical Plan The patient is here today with a member of his intermediate staff. Transaminases worsening from double to triple digit in January. So far no autoimmune process, no infectious process, elevated ferritin but a negative hemochromatosis genetic screen. I do note several incidents of hyperglycemia and I wonder if he may be diabetic. I am going to get a hemoglobin A1c, recheck the thyroid and a ceruloplasmin to exclude anymore distant possibilities. He has marked central adiposity AND WOULD BENEFIT FROM SIGNIFICANT weight loss as he is currently morbidly obese. Other confounding factors are the use of Dilantin, olanzapine, and citalopram. Return office visit in 6 weeks Orders: Orders Ceruloplasmin Today E66.01 - Morbid (severe) obesity due to excess calories, R73.9 - Hyperglycemia, unspecified, R74.01 - Elevation of levels of liver transaminase levels, Z68.41 - Body mass index [BMI] 40.0-44.9, adult Hemoglobin A1c Today E66.01 - Morbid (severe) obesity due to excess calories, R73.9 - Hyperglycemia, unspecified, R74.01 - Elevation of levels of liver transaminase levels, Z68.41 - Body mass index [BMI] 40.0-44.9, adult TSH reflex Free T4 Today E66.01 - Morbid (severe) obesity due to excess calories, R73.9 - Hyperglycemia, unspecified, R74.01 - Elevation of levels of liver transaminase levels, Z68.41 - Body mass index [BMI] 40.0-44.9, adult Coding Level of Care Code Est Pt Level 3 (74397) Diagnoses Morbid obesity with BMI of 40.0-44.9, adult E66.01; Z68.41 Transaminitis R74.01
[2025-02-12 13:38] VITALS: BP 116/74; PULSE 82; O2SAT 96; BMI 29.6
--- OUTSIDE RECORDS SUMMARY | 2025-02-12 13:52 | XMS_ITS | Encounter Summary ---
Author Organization [facility] Address [address] [place] [address] Care Team Providers Care Appliquer Name Role Phone Antonio Mcmillan MD Primary Care Provider [phone] Encounter Details Date Type Department Care Team (Late st Contact Info) Description 10/03/2024 Lab Requisition [facility] - Main Lab [address] [facility] [place] [address] Antonio Mcmillan MD [address] [place] [address] [address] [place], [place] Other intermodal customer service (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 Social History Tobacco Use [...] ANTIBODY Routine 10/03/2024 5:20 AM EDT Other intermodal customer service (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 SST - GOLD Routine 10/03/2024 5:20 AM EDT Other fpc (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 SST - GOLD Routine 10/03/2024 5:20 AM EDT Other intermodal customer service (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 SST - GOLD Routine 10/03/2024 5:20 AM EDT Other intermodal customer service (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 HEPATITIS A ANTIBODY TOTAL WITH REFLEX IGM Routine 10/03/2024 5:20 AM EDT Other fpc (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 LIVER FIBROSIS, FIBROTEST-ACTITEST PANEL Routine 10/03/2024 5:20 AM EDT Other fpc (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 HEPATITIS B SCREENING PANEL Routine 10/03/2024 5:20 AM EDT Other intermodal customer service (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 RED - PLAIN Routine 10/03/2024 5:20 AM EDT Other fpc (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 HEMOCHROMATOSIS MUTATION Routine 025 5:20 AM EDT Other intermodal customer service (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 SMOOTH MUSCLE ANTIBODY IGG Routine 10/03/2024 5:20 AM EDT Other intermodal customer service (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 HEPATITIS A ANTIBODY IGM Routine 025 5:20 AM EDT Other intermodal customer service (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 ALPHA FETOPROTEIN TUMOR MARKER Routine 10/03/2024 5:20 AM EDT Other fpc (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 ANTIMITOCHONDRIAL ANTIBODY Routine 10/03/2024 5:20 AM EDT Other intermodal customer service (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 FERRITIN Routine 10/03/2024 5:20 AM EDT Other intermodal customer service (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 documented in this encounter Results * Hepatitis A antibody IgM (10/03/2024 5:20 AM EDT) Hepatitis A Antibody IgM Negative Negative LAB CHEMISTRY METHOD 10/03/2024 11:18 AM EDT [facility] Blood Venous blood specimen / Unknown 10/03/2024 5:20 AM EDT 10/03/2024 6:22 AM EDT Narrative [facility] - 10/03/2024 11:18 AM EDT Over the counter supplements containing high doses of biotin may interfere with this assay. If interference is suspected, patients shoud be retested after refraining from biotin supplements for 72 hours. us Antonio Mcmillan MD LAB BLOOD ORDERABLES Final Resul t Performing Organization Address [facility] Co de Phone Number [facility] [address] [place] [address], [place] [phone] * SST tube (10/03/2024 5:20 AM EDT) Extra Tube Hold for add-ons. 10/03/2024 8:01 AM EDT [facility] Comment:Auto resulted. Blood Venous blood specimen / Unknown 10/03/2024 5:20 AM EDT 10/03/2024 6:22 AM EDT us Antonio Mcmillan MD LAB BLOOD ORDERABLES Final Resul t Performing Organization Address [facility] Co de Phone Number [facility] [address] [place] [address], [place] [phone] * SST tube (10/03/2024 5:20 AM EDT) Extra Tube Hold for add-ons. 10/03/2024 8:01 AM EDT [facility] Comment:Auto resulted. Blood Venous blood specimen / Unknown 10/03/2024 5:20 AM EDT 10/03/2024 6:22 AM EDT us Antonio Mcmillan MD LAB BLOOD ORDERABLES Final Resul t Performing Organization Address City/[facility]/ZIP Co de Phone Number [facility] [address] [place] [address], [place] [phone] * SST tube (10/03/2024 5:20 AM EDT) Extra Tube Hold for add-ons. 10/03/2024 8:01 AM EDT [facility] Comment:Auto resulted. Blood Venous blood specimen / Unknown 10/03/2024 5:20 AM EDT 10/03/2024 6:22 AM EDT us Antonio Mcmillan MD LAB BLOOD ORDERABLES Final Resul t Performing Organization Address [facility]/ZIP Co de Phone Number [facility] [address] [place] [address], [place] [phone] * Red tube (10/03/2024 5:20 AM EDT) Pathologist [facility] Extra Tube Hold for add-ons. 10/03/2024 8:01 AM EDT [facility] Comment:Auto resulted. Blood Venous blood specimen / Unknown 10/03/2024 5:20 AM EDT 10/03/2024 6:22 AM EDT us Antonio Mcmillan MD LAB BLOOD ORDERABLES Final Resul t Performing Organization Address [facility] de Phone Number [facility] [address] [place] [address], [place] [phone] * Hepatitis C antibody (10/03/2024 5:20 AM EDT) Pathologist [facility] Hepatitis C Antibody Negative Negative LAB CHEMISTRY METHOD 10/03/2024 9:48 AM EDT [facility] Blood Venous blood specimen / Unknown 10/03/2024 5:20 AM EDT 10/03/2024 6:22 AM EDT us Antonio Mcmillan MD LAB BLOOD ORDERABLES Final Resul t Performing Organization Address [facility] Co de Phone Number [facility] [address] [place] [address], [place] [phone] * (ABNORMAL) Hepatitis A antibody total with reflex IgM (10/03/2024 5:20 AM EDT) Pathologist [facility] Hep A Total Ab Positive( A) Negative LAB CHEMISTRY METHOD 10/03/2024 9:49 AM EDT [facility] Blood Venous blood specimen / Unknown 10/03/2024 5:20 AM EDT 10/03/2024 6:22 AM EDT Narrative [facility] - 10/03/2024 9:49 AM EDT Over the counter supplements containing high doses of biotin may interfere with this assay. If interference is suspected, patients shoud be retested after refraining from biotin supplements for 72 hours. us Antonio Mcmillan MD LAB BLOOD ORDERABLES Final Resul t Performing Organization Address [facility] de Phone Number [facility] [address] [place] [address], [place] [phone] * Hepatitis B screening panel (10/03/2024 5:20 AM EDT) [facility] Hepatitis B Surface Ag Negative Negative LAB CHEMISTRY METHOD 10/03/2024 9:49 AM EDT [facility] Hep B Core Total Ab Negative Negative LAB CHEMISTRY METHOD 10/03/2024 9:49 AM EDT [facility] Hepatitis B Surface Ab Negative Negative LAB CHEMISTRY METHOD 10/03/2024 9:49 AM EDT [facility] Blood Venous blood specimen / Unknown 10/03/2024 5:20 AM EDT 10/03/2024 6:22 AM EDT us Antonio Mcmillan MD LAB BLOOD ORDERABLES Final Resul t Performing Organization Address [facility] de Phone Number [facility] [address] [place] [address], [place] [phone] * Hemochromatosis mutation (10/03/2024 5:20 AM EDT) [facility] Hereditary Hemochromatosis See Below 10/16/2024 4:36 PM [...] monitored by Tony Hamlin, Ph.D., FACMG, [facility], [place]. DETAILED ASSAY INFORMATION: Hereditary [...] variants in the HFE gene, C282Y (NM 381447.2: c.845G>A, p.[id number]) and H63D (NM 088809.2: c.187C>G, p.[id number]), that are commonly associated with HH. These [...] Health care providers, please contact your local [employer] genetic counselor or call [phone] ( ) for assistance with the interpretation of these results. This test was developed and its analytical performance characteristics have been determined by [employer] [facility]. It has not been cleared or approved by FDA. This assay has been validated pursuant to the CLIA regulations and is used for clinical purposes. For more information, please refer to http://education.[employer].com/faq/hemochromatosis. (This link is being provided for informational/educational purposes only.) A portion of the testing was performed at [facility]. Reviewed and signed by Laboratory testing supervised and results monitored by Tony Hamlin, Ph.D., FACMG, HCLD, CGMB, Signed on 10/16/2024 at 10:39 Test Performed at: [facility] [address] [phone] Maurilio Valdivia MD, PhD, JONAS Blood Venous blood specimen / Unknown 10/03/2024 5:20 AM EDT 10/03/2024 6:22 AM EDT us Antonio Mcmillan MD LAB MOLECULAR DIAGNOSTICS ORDERA BLES Final Result [facility] [address] [place] [address] * (ABNORMAL) Liver fibrosis, fibrotest-actitest [...] U/L 10/11/2024 7:39 PM EDT [facility] Qdcvt-[id number] n 162 106 - 279 mg/dL 10/11/2024 7:39 PM EDT [facility] Haptoglobin 135 43 - 212 mg/dL 10/11/2024 7:39 PM EDT [facility] Apolipoprotein A1 110 94 - 176 mg/dL 10/11/2024 7:39 PM EDT [facility] Reference ID [id number] 10/11/2024 7:39 PM EDT [facility] Footnote SEE NOTE 10/11/2024 7:39 PM EDT [facility] Comment: The reliability of results is dependent on compliance with the preanalytical and analytical conditions recommended by [employer]. The tests have to be deferred for: [...] The performance characteristics have been determined by [facility]. It has not been cleared or approved by the U.S. Food and Drug Administration. Performance characteristics refer to the analytical performance of the test. [employer], the associated logo, [employer] and all associated [employer] pablo are the registered trademarks of [employer]. All third green party pablo - (R) and (TM) - are the property of their respective owners. (C) 1222-7585 [employer]. All rights reserved. Test Performed at: [facility] [address] [place] [phone] Maurilio Valdivia MD, PhD, JONAS Blood Venous blood specimen / Unknown 10/03/2024 5:20 AM EDT 10/03/2024 6:22 AM EDT us Antonio Mcmillan MD LAB BLOOD ORDERABLES Final Resul t [facility] [address] [place] [address] * Antimitochondrial antibody (10/03/2024 5:20 AM EDT) Mitochondrial Antibody Quantitative 10.6 <=20.0 units LAB CHEMISTRY METHOD 10/03/2024 11:42 AM EDT [facility] Mitochondrial Antibody Qualitative Negative Negative LAB CHEMISTRY METHOD 10/03/2024 11:42 AM EDT [facility] Blood Venous blood specimen / Unknown 10/03/2024 5:20 AM EDT 10/03/2024 6:22 AM EDT us Antonio Mcmillan MD LAB BLOOD ORDERABLES Final Resul t [facility] [address] [place] [address], [place] [phone] * Alpha fetoprotein tumor marker (10/03/2024 5:20 AM EDT) Pathologist [facility] AFP <2.5 0.0 - 8.0 ng/mL LAB CHEMISTRY METHOD 10/03/2024 9:08 AM EDT [facility] Blood Venous blood specimen / Unknown 10/03/2024 5:20 AM EDT 10/03/2024 6:22 AM EDT Narrative [facility] - 10/03/2024 9:08 AM EDT The Siemens Advia Lendaaur Chemiluminescent Immunoassay is used. Results obtained with different assay methods or kits cannot be used interchangeably. Results cannot be interpreted as absolute evidence of the presence or absence of malignant disease. us Antonio Mcmillan MD LAB BLOOD ORDERABLES Final Resul t Performing Organization Address [facility] Co de Phone Number [facility] [address] [place] [address], [place] [phone] * Smooth muscle antibody IgG (10/03/2024 5:20 AM EDT) [facility] Smooth Muscle (F-Actin) IgG Ab 9 <20 UNITS 10/08/2024 1:56 PM EDT [facility] Comment: Interpretation: Negative Test performed at [facility], [address], [place] [address] Elizabeth Huertas MD, PhD - Assistant Professor Of Sociology Blood Venous blood specimen / Unknown 10/03/2024 5:20 AM EDT 10/03/2024 6:22 AM EDT us Antonio Mcmillan MD LAB BLOOD ORDERABLES Final Resul t Performing Organization Address [facility]/ZIP Co de Phone Number [facility] [address] [place] [address] * Ferritin (10/03/2024 5:20 AM EDT) Ferritin 43 26 - 388 ng/mL LAB CHEMISTRY METHOD 10/03/2024 6:55 AM EDT [facility] Blood Venous blood specimen / Unknown 10/03/2024 5:20 AM EDT 10/03/2024 6:22 AM EDT us Antonio Mcmillan MD LAB BLOOD ORDERABLES Final Resul t [facility] [address] [place] [address], [place] [phone] documented in this encounter Visit Diagnoses Diagnosis Other fpc (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 documented in this encounter Care Teams Appliquer Relationship Specialty Start Date End Date Antonio Mcmillan MD [address] [place] [address] Dr [address] [place] PCP - General Internal Medicine 08/10/24 documented as of this encounter
--- OUTSIDE RECORDS SUMMARY | 2025-02-12 13:52 | XMS_ITS | Clinical Summary ---
Author Organization [address] Address [address] [place] [address] Phone Care Team Providers Care Combat Systems Engineer Name Role Phone Antonio Mcmillan DO Primary Care Provider [phone] Allergies No known active allergies Medications acetaminophen [...] Years Used Date Smoking Tobacco: Never Assessed [facility] Utilities Answer Date Recorded In the past 12 months has e [employer], gas, oil, or water [employer] threatened to shut off services in your [...] MEDICAID [place] on file [facility] at [address] [address] Advance Directives * Full Code (Latest Code Status on File) Date Activated Date Inactivated Comments 02/17/2024 5:24 PM 02/21/2024 2:32 PM Question Answer Comments With Whom was the Code Status Discussed? Patient Care Teams Combat Systems Engineer Relationship Specialty Start Date End Date Antonio Mcmillan DO [address] [place] [address] PCP - General Internal Medicine 02/17/24
== END 2025-02-12 14:02 | disposition home or self-care (01) ==
LOC: HO.HGI 13:03
PROVIDERS: PCP Hospitalist; Visit Provider Nurse Practitioner
DX: E66.01 Morbid (severe) obesity due to excess calories (principal); Z68.41 Body mass index [BMI] 40.0-44.9, adult; R74.01 Elevation of levels of liver transaminase levels
CPT/HCPCS: 99213

== ENCOUNTER 2025-06-07 11:37 | Outpatient (AMB) | payer MEDICAID, SELFPAY ==
[2025-06-07 11:39] VITALS: BP 120/74; PULSE 93; O2SAT 90; BMI 38.1
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
== END 2025-06-07 12:10 | disposition home or self-care (01) ==
LOC: HO.HPSW 11:38
PROVIDERS: PCP Hospitalist; Visit Provider Nurse Practitioner Family
DX: J96.10 Chronic respiratory failure, unspecified whether with hypoxia or hypercapnia (principal); J45.40 Moderate persistent asthma, uncomplicated; J98.6 Disorders of diaphragm; G56.80 Other specified mononeuropathies of unspecified upper limb; G47.34 Idiopathic sleep related nonobstructive alveolar hypoventilation
CPT/HCPCS: 99214

== ENCOUNTER → 2025-06-07 11:37 | Outpatient (BNVA) | payer MEDICAID, SELFPAY | PROVIDERS: PCP Hospitalist; Visit Provider Nurse Practitioner Family | DX: J96.10 Chronic respiratory failure, unspecified whether with hypoxia or hypercapnia (principal); G47.34 Idiopathic sleep related nonobstructive alveolar hypoventilation; J98.6 Disorders of diaphragm; J45.40 Moderate persistent asthma, uncomplicated; G56.80 Other specified mononeuropathies of unspecified upper limb | CPT/HCPCS: 99212 ==